=== PATIENT | male | born 1955 | race Caucasian/White ===

== ENCOUNTER 2022-07-13 15:18 | Emergency (ER) | payer SELFPAY ==
[2022-07-13] VITALS (17 sets, daily range): BP systolic 131–173; BP diastolic 73–93; PULSE 70–89; RESP 18–24; TEMP 36.3–36.7; O2SAT 90–98; BMI 20.9
--- NOTE | 2022-07-13 16:12 | CT_ITS ---
We are attempting to reach an attending provider to discuss findings. An addendum with communication details will be sent when the communication is complete. INDICATION: headache, confusion EXAMINATION: CT BRAIN - CT Head or Brain W/O Contrast Injection TECHNIQUE: Multiple axial images were obtained of the head without intravenous contrast. A radiation dose optimization technique was used for this scan. IV Contrast dosage and agent: None. COMPARISON: FINDINGS: BRAIN PARENCHYMA: There is acute intraventricular hemorrhage noted with mild asymmetric dilatation of the left lateral ventricle... No evidence of acute infarct. There is effacement of the cortical sulci in the temporal and frontal lobes suggesting cerebral edema.. . Posterior fossa structures are unremarkable. CSF SPACES: Appropriate for age. No hydrocephalus. Basal cisterns are patent. CALVARIUM, SKULL BASE, PARANASAL SINUSES AND MASTOID AIR CELLS: Clear. No discrete lytic or blastic abnormalities. ORBITS: Both globes, extraocular muscles, optic nerves and retrobulbar fat appear unremarkable. CT/Brain/Head without Contrast IMPRESSION: Nonspecific interventricular hemorrhage of uncertain etiology. CTA or MRI/MRA is recommended for further evaluation Electronically Signed: Dc Ramírez MD at 17:00 EST ,
--- NOTE | 2022-07-13 16:13 | EDS_ITS ---
HPI History of Present Illness Chief Complaint: Cold Sx Detail of Chief Complaint: Fatigue, headache Informant: patient and family Onset/Context/Timing Onset: Today Narrative Narrative: History provided primarily by sister at bedside. Patient works as a [employer] and works long hours. This morning he complained that he just was not feeling well and had a headache. They found him slumped over but sister does not believe he ever passed out or lost consciousness. They took him back to the house and he was complaining of headache and had some confusion. There is no reported fall or head injury. PFSH PFSH Medical History no medical history no medical history Home Medications NK 07/13/22 [History Last Taken Unknown] Allergy/AdvReac Type Severity Reaction Status Date / Time No Known Allergies Allergy Verified 07/13/22 15:31 Social History Smoking Status: Current every day smoker tobacco type: cigarettes ROS ROS ED Constitutional Constitutional ED: Denies chills or fever(s) Eyes Eyes: Denies change in vision or discharge from eye(s) ENT ENT ED: Denies discharge from eye(s), rhinorrhea or sore throat Cardiovascular Cardiovascular: Denies chest pain or palpitations Respiratory/Chest Respiratory/Chest: Denies cough or dyspnea Gastrointestinal Gastrointestinal: Reports nausea and vomiting; Denies abdominal pain or diarrhea Genitourinary Genitourinary ED: Denies dysuria Musculoskeletal Musculoskeletal: Denies back pain or extremity pain Integumentary Denies Abrasions or rash Neurologic Neurologic: Reports headache(s) and weakness Psychiatric Psychiatric: Denies anxiety or depression Allergic/Immunologic Allergic/Immunologic ED: Denies lip swelling or urticaria EXAM Physical Exam Const Vital Signs: 07/13/22 15:27 07/13/22 17:20 Temperature 97.4 F L Temperature Source Temporal Pulse Rate 74 70 Respiratory Rate 18 21 H Blood Pressure 157/93 H 163/93 H Blood Pressure Mean 114 116 Pulse Ox 98 95 Oxygen Delivery Method Room Air Room Air Positive well nourished and well developed General Appearance ED: well developed HEENT Reports normocephalic and head/scalp atraumatic Eyes PERRL and EOMs intact bilaterally Neck supple Neck Narrative: No meningismus Chest Wall inspection of chest normal and palpation of chest normal Resp normal respiratory effort and clear to auscultation bilaterally Cardio regular rate and regular rhythm GI normal to inspection, nondistended, normoactive bowel sounds Palpation: soft Extremity normal to inspection Neuro oriented x3 Neuro Narrative: No focal neurologic deficits. Sensorium / Orientation: alert Psych Psych Narrative: Resting with eyes closed will answer questions appropriately. Will follow commands normally. Skin no rashes or lesions noted MDM MDM MDM Narrative Medical decision making narrative: Given IV fluids along with 50 mg of Toradol and 4 mg of Zofran. Head CT obtained along with lab work and swabs for COVID and influenza. Portable chest x-ray obtained. Lab Data Attestation: I reviewed the patient's lab results. Labs: Laboratory Results - last 24 hr 07/13/22 07/13/22 16:24 16:24 WBC 11.5 H RBC 4.97 Hgb 15.7 Hct 45.7 MCV 92.0 MCH 31.6 MCHC 34.4 RDW Std Deviation 43.2 RDW Coeff of Tre 12.8 Plt Count 270 MPV 10.0 Immature Gran % (Auto) 0.500 Neut % (Auto) 80.6 H Lymph % (Auto) 13.8 L [place] % (Auto) 4.5 Eos % (Auto) 0.2 Baso % (Auto) 0.4 Absolute Neuts (auto) 9.2 H Absolute Lymphs (auto) 1.58 Nucleated RBC % 0 Sodium 137 Potassium 4.0 Chloride 104 Carbon Dioxide 30.0 Anion Gap 3 L BUN 16 Creatinine 0.87 Estim Creat Clear Calc 80.81 Est GFR (MDRD) Af Amer 112 Est GFR (MDRD) Non-Af 93 BUN/Creatinine Ratio 18.4 Glucose 129 H Calcium 9.2 ABG Data ABG results: ABG 07/13/22 16:24 VBG Carboxyhemoglobin 5.4 H Radiography Chest X-Ray - ED: 1 View, Read by ED Physician, Chronic Changes and No Infiltrates Diagnostic Testing: Clinical Impression(s) from Imaging Studies Brain CT 07/13/22 16:12 IMPRESSION: Nonspecific interventricular hemorrhage of uncertain etiology. CTA or MRI/MRA is recommended for further evaluation Electronically Signed: Dc Ramírez MD at 17:00 EST , ADDENDUM: 07/13/22 [id number] IMPRESSION: Nonspecific interventricular hemorrhage of uncertain etiology. CTA or MRI/MRA is recommended for further evaluation N.B. : The above Results were Read Back by Dc Ramírez MD to Renetta Harper MD, and understanding confirmed on 07/13/2022 17:12:47 (ET). Electronically Signed: Dc Ramírez MD at 17:00 EST , Chest X-Ray 07/13/22 16:30 IMPRESSION: Mild nonspecific interstitial thickening in the right lower lobe possibly inflammatory. Small left lower lobe nodule possibly granuloma. This may be further assessed with CAT scan or correlation with prior studies when available. Electronically Signed: Dc Ramírez MD at 16:50 EST , Treatment and Re-Evaluation Narrative: Repeat evaluation patient resting comfortably. Test results discussed with patient and sister at bedside. Lab work reveals a mildly elevated white count 11.5 with 80% neutrophils. Chemistry studies are unremarkable. COVID and influenza swabs are negative. Portable chest x-ray per my interpretation reveals no focal infiltrate. Head CT reveals nonspecific intraventricular hemorrhage of uncertain etiology. Left lateral ventricle dilated slightly more than right. Current blood pressure is 163/93. Patient has been accepted at [facility]. Goal blood pressures less than 140 so a dose of labetalol has been ordered. We are arranging air transport at this time. Discharge Plan Triage Chief Complaint: Cold Sx ED Provider: Renetta Harper Dx/Rx/DC Orders Clinical Impression: Hemorrhagic stroke Prescriptions: No Action NK Primary Care Provider: NOT,DEFINED Referrals: NOT,DEFINED [Primary Care Provider] - Disposition Disposition: Acute Care Hospital Discharge Location: [facility]
[2022-07-13] MEDS: Ondansetron 4 MG/2 ML Vial IV (16:26)
[2022-07-13] MEDS: 0.9% Normal Saline 1,000 ML 1000 ML IV (16:26)
[2022-07-13] MEDS: Ketorolac 15 MG/ML Vial IV (16:26)
--- NOTE | 2022-07-13 16:30 | RAD_ITS ---
INDICATION: sob EXAMINATION/TECHNIQUE: X-RAY - XR Chest 1 View COMPARISON: None. FINDINGS: LINES/DEVICES: None. LUNGS: Mild nonspecific asymmetric interstitial thickening in the right lower lobe. Small well marginated nodule in the left lower lobe possibly granuloma. No pneumothorax. MEDIASTINUM AND CARDIOVASCULAR STRUCTURES: Cardiac silhouette not enlarged. Central airways and mediastinal contour are unremarkable. BONES AND SOFT TISSUES: Dorsal spine and shoulders demonstrate degenerative change RAD/Chest 1 View (Portable) IMPRESSION: Mild nonspecific interstitial thickening in the right lower lobe possibly inflammatory. Small left lower lobe nodule possibly granuloma. This may be further assessed with CAT scan or correlation with prior studies when available. Electronically Signed: Dc Ramírez MD at 16:50 EST ,
[2022-07-13 16:51] LABS: Absolute Lymphocyte Count 1.58 X10^3/uL (0.83-4.51); Absolute Neutrophil Count 9.2 X10^3/uL (2.0-7.7); Basophil# 0.05 X10^3/uL; Basophil% 0.4 % (0-1); Eosinophil# 0.02 X10^3/uL; Eosinophils% 0.2 % (0-5); Hematocrit 45.7 % (40-54); Hemoglobin 15.7 g/dL (13.0-16.5); Lymphocyte # 1.58 X10^3/ul (0.83-4.51); Lymphocyte % 13.8 % (19-41); Mean Corp Hgb Conc 34.4 g/dL (32-36); Mean Corpuscular Hgb 31.6 pg (27.0-32.0); Monocyte# 0.51 X10^3/uL; Monocyte% 4.5 % (0-10); NRBC Flagged by Analyzer 0 % (0-5); Neutrophil # 9.23 X10^3/uL (2.7-7.7); Neutrophil % 80.6 % (47-70); Platelet Count 270 K/mm3 (150-450); RBC Distribution Width CV 12.8 % (11.6-14.6); RBC Distribution Width SD 43.2 fl (35.1-43.9); Red Blood Count 4.97 M/mm3 (4.6-6.2); White Blood Count 11.5 K/mm3 (4.4-11.0)
[2022-07-13 17:06] LABS: Anion Gap 3 (5-15); BUN 16 mg/dL (7-18); BUN/Creat Ratio 18.4 RATIO (10-20); Calcium,Total 9.2 mg/dL (8.5-10.1); Chloride 104 mmol/L (98-107); Creatinine, Serum 0.87 mg/dL (0.70-1.30); EST Glomerular Filtration Rate 93 mL/min (>60); Est Glom Filt Rate - Afr Amer 112 mL/min (>60); Estimated Creatinine Clearance 80.81 ml/min; Glucose 129 mg/dL (74-106); Sodium Level 137 mmol/L (136-145)
[2022-07-13 17:07] LABS: Carboxyhemoglobin Frac (CO) 5.4 % (0.0-1.5)
[2022-07-13] MEDS: Labetalol (Prefilled) 20 MG/4 ML 10 MG IV ×3 (17:41→19:20)
[2022-07-13 18:49] LABS: International Normalized Ratio 1.1
--- NOTE | 2022-07-13 19:11 | ED.RN ---
Report given to Jennifer at [facility]
--- NOTE | 2022-07-13 20:37 | NURSING ---
CALLED PHYSICIANS AT 1909 TO GET AN UPDATED ETA AND WAS TOLD THE NEW ETA WOULD BE 1999. I CALLED AGAIN AT 2034 AND WAS INFORMED IT WOULD BE ANOTHER 15-20 MINUTES BEFORE [facility] ARRIVED.
--- NOTE | 2022-07-13 21:22 | ED.RN ---
Report given to physicians ambulance.
== END 2022-07-13 21:30 | disposition short-term general hospital (02) ==
PROVIDERS: Emergency Provider Emergency Medicine; Visit Provider Emergency Medicine
DX: I63.9 Cerebral infarction, unspecified (principal); F17.210 Nicotine dependence, cigarettes, uncomplicated; R41.0 Disorientation, unspecified; R53.83 Other fatigue; R11.2 Nausea with vomiting, unspecified; R51.9 Headache, unspecified; Z20.822 Contact with and (suspected) exposure to COVID-19
CPT/HCPCS: 70450; 71045; 80048; 82375; 85025; 85610; 85730; 87428; 96365; 96375; 96376; 99285; J7030; J7050; A4216; J2405

== ENCOUNTER 2023-11-13 02:34 | Emergency (ER) | payer MEDICARE, SELFPAY ==
[2023-11-13 02:35] VITALS: BP 214/114; PULSE 85; RESP 22; TEMP 36.7; O2SAT 99; BMI 23.5
--- NOTE | 2023-11-13 02:58 | EDS_ITS ---
HPI History of Present Illness Chief Complaint: GI Bleed Informant: patient and spouse/S.O. Narrative Narrative: Presents with difficulty urinating then noting bowel movement that is bloody. He is straining. He is on aspirin history of CVA in 2021. Suprapubic d iscomfort. No fevers. Toledo catheter when he had a stroke per significant other. PFSH PFS Medical History Stroke Home Medications aspirin 81 mg chewable tablet (Children's Aspirin) 1 tab PO DAILY 11/13/23 [History Last Taken Unknown] cefdinir 300 mg capsule 300 mg PO Q12H #14 caps 11/13/23 [Rx Last Taken Unknown] docusate sodium 100 mg capsule (Colace) 100 mg PO BID #30 caps 11/13/23 [Rx Last Taken Unknown] tamsulosin 0.4 mg capsule (Flomax) 0.4 mg PO DAILY #14 caps 11/13/23 [Rx Last Taken Unknown] Allergy/AdvReac Type Severity Reaction Status Date / Time No Known Allergies Allergy Verified 07/13/22 15:31 Surgical History (Updated 11/13/23 @ 02:40 by Susan Rocha) S/P hernia surgery Social History Smoking Status: Current every day smoker tobacco type: e-cigarettes ROS ROS ED Constitutional Constitutional ED: Denies chills, fever(s) or sweats Eyes Eyes: Denies change in vision ENT ENT ED: Denies dysphagia or sore throat Cardiovascular Cardiovascular: Denies chest pain, leg edema, palpitations or racing heartbeat Respiratory/Chest Respiratory/Chest: Denies cough, dyspnea or dyspnea on exertion Gastrointestinal Gastrointestinal: Reports abdominal pain and other Details: Rectal bleeding ; Denies diarrhea, nausea or vomiting Genitourinary Genitourinary ED: Reports other Details: Urine retention ; Denies dysuria, hematuria or urinary frequency Musculoskeletal Musculoskeletal: Denies back pain, extremity pain or neck pain Integumentary Denies rash or wounds Neurologic Neurologic: Denies headache(s), paresthesias or weakness EXAM Physical Exam Const Vital Signs: 11/13/23 02:35 11/13/23 04:08 Temperature 98.0 F 97.4 F L Temperature Source Oral Pulse Rate 85 78 Respiratory Rate 22 H 18 Blood Pressure 214/114 H 173/80 H Blood Pressure Mean 147 111 Pulse Ox 99 96 Oxygen Delivery Method Room Air Positive well nourished and well developed Constitutional Narrative: Walking around for comfort. General Appearance ED: well developed and NAD HEENT Reports moist mucous membranes normocephalic and atraumatic Eyes PERRL, EOMs intact bilaterally and conjunctivae normal General Eye ED: Yes normal appearance of both eyes Neck no lymphadenopathy and supple General: Negative for tenderness Chest Wall Chest: Negative for tenderness Resp normal respiratory effort and normal air movement Effort and Inspection: symmetric chest movement; Negative for respiratory distress Cardio regular rate, regular rhythm and no murmurs Peripheral Pulses: pulses 2+ throughout GI GI Narrative: Suprapubic distention. Rectal exam with large anterior hemorrhoid dried blood. Palpation: Negative for guarding or rebound tenderness present Back/Spine no CVA tenderness and no thoracic nor lumbar tenderness Extremity normal to inspection General Extremety ED: Negative for edema or tenderness General Extremity: Negative for edema Neuro oriented x3 and no sensory deficits noted Sensorium / Orientation: awake and alert Skin no rashes or lesions noted and no wounds MDM MDM MDM Narrative Medical decision making narrative: Interventions / MDM: Differential diagnosis: Urine retention, UTI, bleeding external hemorrhoid Diagnosis considered but do not suspect: No clinical diverticulitis My EKG interpretation: N/A Imaging independently reviewed and interpreted by myself: N/A External documents reviewed: N/A Test considered but not ordered:N/A ED course: Presenting urine retention suprapubic distention. Rectal bleeding with noted hemorrhoid. Basic labs, Toledo catheter and urine ordered. 0300: Toledo with 1 L of urine output. abdominal pain improved, distention improved. 0400: Labs hemoglobin normal at 15 white count 8.5. Creatinine 1.05. Urine leukocytes and white cells from cath urine. Culture sent. With urine retention will start antibiotics in the ED. Multiple reevaluation continues to have soft abdomen. No clinical diverticulitis. Blood pressure improved with his symptoms. Discussed maintain Toledo catheter for 3 days for urine retention he started on Flomax, urology follow-up in 3 days discussed if he cannot get in to return to ED for attempted Toledo catheter removal trial. He has external hemorrhoid that was bleeding, placed on stool softeners and GI follow-up. All questions were answered. Re-evaluation: stable Disposition discussed with patient/family/significant other: Patient and significant other. Case discussed with consulting clinician: N/A This note was generated with [employer] dictation software. It may contain incorrect words, spelling, and punctuation that were not noted in checking the note before signing. Lab Data Attestation: I reviewed the patient's lab results. Labs: Laboratory Results - last 24 hr 11/13/23 11/13/23 02:52 03:07 WBC 8.5 RBC 5.02 Hgb 15.5 Hct 46.1 MCV 91.8 MCH 30.9 MCHC 33.6 RDW Std Deviation 43.0 RDW Coeff of Tre 12.8 Plt Count 252 MPV 9.4 Immature Gran % (Auto) 0.500 Neut % (Auto) 66.3 Lymph % (Auto) 22.2 [place] % (Auto) 8.5 Eos % (Auto) 1.6 Baso % (Auto) 0.9 Absolute Neuts (auto) 5.6 Absolute Lymphs (auto) 1.89 Nucleated RBC % 0 Sodium 138 Potassium 3.9 Chloride 106 Carbon Dioxide 25.0 Anion Gap 7 BUN 22 H Creatinine 1.05 Estim Creat Clear Calc 75.04 Est GFR (MDRD) Af Amer 90 Est GFR (MDRD) Non-Af 74 BUN/Creatinine Ratio 21.0 H Glucose 131 H Calcium 8.9 Urine Color Yellow Urine Clarity Clear Urine pH 6.5 Ur Specific [place] 1.010 Urine Protein Negative Urine Glucose (UA) Normal Urine Ketones Negative Urine Occult Blood 50 H Urine Nitrite Negative Urine Bilirubin Negative Urine Urobilinogen Normal Ur Leukocyte Esterase 100 H Urine RBC 0-5 SEEN Urine WBC 10-25 SEEN Ur Squamous Epith Cells 0 SEEN Urine Bacteria 0 SEEN Urine Mucus 0 SEEN Discharge Plan Triage Chief Complaint: GI Bleed ED Provider: Jhoan Laurent Dx/Rx/DC Orders Clinical Impression: External bleeding hemorrhoids, Acute UTI, Acute retention of urine Instructions: Urinary Tract Infections in Men, ED Toledo Catheter, Care, ED Hemorrhoids, ED Urinary Retention, Male Prescriptions: New tamsulosin [Flomax] 0.4 mg capsule 0.4 mg PO DAILY Qty: 14 0RF cefdinir 300 mg capsule 300 mg PO Q12H Qty: 14 0RF docusate sodium [Colace] 100 mg capsule 100 mg PO BID Qty: 30 0RF No Action aspirin [Children's Aspirin] 81 mg tablet,chewable 1 tab PO DAILY Primary Care Provider: Guanaco Crenshaw Referrals: Guanaco Crenshaw MD [Primary Care Provider] - Max Sotomayor MD [Med Staff - Active Staff] - 3-5 Days Fortino Horn DO [Med Staff - Active Staff] - 1-2 Weeks Activity Restrictions/Additional Instructions: Acute urinary retention. Maintain Toledo catheter for least 3 days. Urine with potential infection. Culture sent. Take antibiotic as prescribed. Use Flomax daily. Follow-up with Dr. Sotomayor in 3 days for outpatient valuation Toledo catheter removal. If unable to get in, return to the ED for removal trial. External hemorrhoid that was bleeding likely from straining. Stool softeners as prescribed. Follow-up with Dr. Horn for outpatient evaluation. Disposition Disposition: Home, Self Care
[2023-11-13 02:59] LABS: Absolute Lymphocyte Count 1.89 X10^3/uL (0.83-4.51); Absolute Neutrophil Count 5.6 X10^3/uL (2.0-7.7); Basophil# 0.08 X10^3/uL; Basophil% 0.9 % (0-1); Eosinophil# 0.14 X10^3/uL; Eosinophils% 1.6 % (0-5); Hematocrit 46.1 % (40-54); Hemoglobin 15.5 g/dL (13.0-16.5); Lymphocyte # 1.89 X10^3/ul (0.83-4.51); Lymphocyte % 22.2 % (19-41); Mean Corp Hgb Conc 33.6 g/dL (32-36); Mean Corpuscular Hgb 30.9 pg (27.0-32.0); Mean Corpuscular Volume 91.8 fL (80-94); Mean Platelet Vol. 9.4 fl (6.2-12.0); Monocyte# 0.72 X10^3/uL; Monocyte% 8.5 % (0-10); NRBC Flagged by Analyzer 0 % (0-5); Neutrophil # 5.63 X10^3/uL (2.7-7.7); Neutrophil % 66.3 % (47-70); Platelet Count 252 K/mm3 (150-450); RBC Distribution Width CV 12.8 % (11.6-14.6); Red Blood Count 5.02 M/mm3 (4.6-6.2); White Blood Count 8.5 K/mm3 (4.4-11.0)
[2023-11-13 03:12] LABS: Anion Gap 7 (5-15); BUN 22 mg/dL (7-18); Calcium,Total 8.9 mg/dL (8.5-10.1); Chloride 106 mmol/L (98-107); Creatinine, Serum 1.05 mg/dL (0.70-1.30); EST Glomerular Filtration Rate 74 mL/min (>60); Est Glom Filt Rate - Afr Amer 90 mL/min (>60); Estimated Creatinine Clearance 75.04 ml/min; Glucose 131 mg/dL (74-106); Potassium 3.9 mmol/L (3.5-5.1); Sodium Level 138 mmol/L (136-145)
[2023-11-13 03:15] LABS: Bacteria 0 SEEN /hpf (None Seen); Mucous, Urine 0 SEEN /hpf (<or=2+); Squamous Epithelial Cells - UA 0 SEEN /hpf (0-5)
[2023-11-13 03:21] LABS: Color, Urine Yellow (Yellow); Glucose, Dipstick Normal (Normal); Ketone-Dipstick Negative (Negative); Leukocyte Esterase-Dipstick 100 /ul (Negative); Nitrite-Dipstick Negative (Negative); Occult Blood-Urine 50 /ul (Negative); Protein-Dipstick Negative (Negative); Urine Bilirubin Dipstick Negative (Negative); Urine Clarity Clear (Clear); Urine Urobilinogen Normal (Normal); Urine pH 6.5 (5.0 - 8.0)
[2023-11-13 03:38] LABS: Red Blood Cells-Urine 0-5 SEEN /hpf (0-5); White Blood Cells 10-25 SEEN /hpf (0-5)
[2023-11-13] MEDS: Cefdinir 300 MG Capsule PO (04:07)
[2023-11-13] MEDS: Tamsulosin HCl 0.4 MG Capsule PO (04:07)
[2023-11-13 04:08] VITALS: BP 173/80; PULSE 78; RESP 18; TEMP 36.3; O2SAT 96
== END 2023-11-13 04:26 | disposition home or self-care (01) ==
PROVIDERS: Emergency Provider Emergency Medicine; PCP Family Medicine; Visit Provider Emergency Medicine
DX: N39.0 Urinary tract infection, site not specified (principal); F17.290 Nicotine dependence, other tobacco product, uncomplicated; R33.9 Retention of urine, unspecified; K64.4 Residual hemorrhoidal skin tags; Z79.82 Long term (current) use of aspirin; Z79.899 Other long term (current) drug therapy; Z86.73 Personal history of transient ischemic attack (TIA), and cerebral infarction without residual deficits
CPT/HCPCS: 51702; 80048; 81001; 85025; 87077; 87086; 87088; 87186; 99285; A4216

== ENCOUNTER 2023-11-14 09:28 | Emergency (ER) | payer MEDICARE, SELFPAY ==
[2023-11-14 09:30] VITALS: BP 141/114; PULSE 76; RESP 18; TEMP 36.6; O2SAT 96
[2023-11-14 09:32] VITALS: BP 141/114; PULSE 77; RESP 18; TEMP 36.6; O2SAT 98
--- NOTE | 2023-11-14 09:49 | EX.ED.GUMALE ---
HPI History of Present Illness Chief Complaint: Complaint Informant: patient and spouse/S.O. Narrative Narrative: Patient seen here yesterday and had a Toledo placed because of acute urinary retention and what seems to be infection for which she was started on antibiotics. He states yesterday the urine was flowing through the catheter into the bag and he was emptying it uneventfully. This morning it is leaking around the catheter and nothing is going into the bag. He does not have any abdominal or back pain or fevers or chills or hematuria before or after the catheter that he knows of, grossly. PFSH PFSH Medical History Stroke Home Medications aspirin 81 mg chewable tablet (Children's Aspirin) 1 tab PO DAILY 11/13/23 [History Last Taken Unknown] cefdinir 300 mg capsule 300 mg PO Q12H #14 caps 11/13/23 [Rx Last Taken Unknown] docusate sodium 100 mg capsule (Colace) 100 mg PO BID #30 caps 11/13/23 [Rx Last Taken Unknown] tamsulosin 0.4 mg capsule (Flomax) 0.4 mg PO DAILY #14 caps 11/13/23 [Rx Last Taken Unknown] Allergy/AdvReac Type Severity Reaction Status Date / Time No Known Allergies Allergy Verified 11/14/23 09:32 Surgical History (Updated 11/13/23 @ 02:40 by Susan Rocha) S/P hernia surgery Social History Smoking Status: Current every day smoker tobacco type: e-cigarettes ROS ROS ED Constitutional Constitutional ED: Denies chills or fever(s) Gastrointestinal Gastrointestinal: Denies abdominal pain, nausea or vomiting Genitourinary Genitourinary ED: Reports as per HPI; Denies hematuria Musculoskeletal Musculoskeletal: Denies back pain or neck pain Neurologic Neurologic: Denies paresthesias or weakness EXAM Physical Exam Const Vital Signs: 11/14/23 09:30 11/14/23 09:32 Temperature 97.9 F 97.9 F Temperature Source Temporal Oral Pulse Rate 76 77 Respiratory Rate 18 18 Blood Pressure 141/114 H 141/114 H Blood Pressure Mean 123 123 Pulse Ox 96 98 Oxygen Delivery Method Room Air Room Air Positive well nourished and well developed General Appearance ED: well developed and NAD GI non-tender and non-distended Auscultation: normoactive bowel sounds Palpation: soft Narrative: Toledo in place and penis, otherwise unremarkable. Trace amounts of yellow nonbloody urine in catheter. Back/Spine no CVA tenderness Neuro oriented x3, CN's II-XII intact bilaterally, moves all extremities, no focal motor deficits and no sensory deficits noted MDM MDM MDM Narrative Medical decision making narrative: After irrigating the catheter, a piece of tissue was removed and the catheter subsequently was flowing well without leaking. The patient states he wants the catheter out because it is uncomfortable and makes it hard to work. I discussed the pros and cons of that extensively with the patient. His seems to understand the pros and cons well but the patient does not. He understands that basically the risk is recurrent urinary retention and requiring another catheter in an urgent/emergent situation. I am having nursing give the a 10 cc syringe and instructions for removal if indeed the patient wants to do this. I have recommended that he try to leave it in until he follows up with urology. It is Wednesday so he has not yet been able to make an appointment for that. The also mentioned that the patient really does not have a desire to follow-up. I told him multiple reasons that he needs to follow-up even if the catheter comes out and he was able to urinate, not exclusive of possibility of prostate cancer causing his urinary retention, which I am not able to rule in or rule out in the emergency department. Discharge Plan Triage Chief Complaint: Complaint ED Provider: Catarino Collisn Dx/Rx/DC Orders Clinical Impression: Malfunction of Toledo catheter, Acute retention of urine Instructions: ED Toledo Catheter, Care Prescriptions: No Action aspirin [Children's Aspirin] 81 mg tablet,chewable 1 tab PO DAILY tamsulosin [Flomax] 0.4 mg capsule 0.4 mg PO DAILY Qty: 14 0RF cefdinir 300 mg capsule 300 mg PO Q12H Qty: 14 0RF docusate sodium [Colace] 100 mg capsule 100 mg PO BID Qty: 30 0RF Primary Care Provider: Guanaco Crenshaw Referrals: Guanaco Crenshaw MD [Primary Care Provider] - Max Sotomayor MD [Med Staff - Active Staff] - 5-7 Days Disposition Disposition: Home, Self Care
[2023-11-14 11:20] VITALS: BP 158/99; PULSE 75; RESP 16; TEMP 36.9; O2SAT 99
== END 2023-11-14 11:21 | disposition home or self-care (01) ==
PROVIDERS: Emergency Provider Emergency Medicine; PCP Family Medicine; Visit Provider Emergency Medicine
DX: T83.198A Other mechanical complication of other urinary devices and implants, initial encounter (principal); Y73.8 Miscellaneous gastroenterology and urology devices associated with adverse incidents, not elsewhere classified; R33.9 Retention of urine, unspecified; F17.290 Nicotine dependence, other tobacco product, uncomplicated; Z79.82 Long term (current) use of aspirin; Z79.899 Other long term (current) drug therapy; Z86.73 Personal history of transient ischemic attack (TIA), and cerebral infarction without residual deficits
CPT/HCPCS: 99282

== ENCOUNTER → 2024-11-06 | Outpatient (CLI) | payer MEDICARE, SELFPAY ==
--- NOTE | 2024-11-06 10:30 | LES_PTH ---
PATIENT: LOVE REY LOC: [facility] U#:[id number] AGE/SX: 69/M ROOM: RE11/06/[address]: Guanaco Crenshaw MD : 1955 BED: DIS: 11/06/2024 SPEC #: [id number] RECD: 11/07/24 09:02 STATUS: JUAN NIKOLAS #: [id number] BEBE: 11/06/24 10:[address]: Guanaco Crenshaw DEPT: SURGICAL PATHOLOGY RECD BY: Dean Pearl Tissues: A - Skin of abdomen, NOS Procedures: Immunohistochemical Stains Surgery Specimen Level IV HEADER OPERATION: Punch biopsy PRE-OP DIAGNOSIS: Suspicious skin lesion TISSUE SUBMITTED: A- Upper abdomen lesion MICROSCOPIC DIAGNOSIS A. Skin, upper abdomen, punch biopsy: * Compound melanocytic nevus with moderate cytologic atypia and architectural disorder - see note and Comment. * IHC for Melan-A highlights the melanocytes in the dermis and at the dermoepidermal junction; no intraepidermal involvement is observed. Note: Melanocytes at the dermo-epidermal junction extend to involve bilateral edges of the specimen. If this biopsy represents only a portion of the lesion, complete excision of the residual lesion for further evaluation is recommended, if clinically indicated. COMMENT The slides/images were reviewed in intradepartmental consultation by Dr Yaneli Fitzpatrick (dermatopathology division, [facility]). MICROSCOPIC DESCRIPTION Slides are reviewed. These tests were developed and their performance characteristics determined by [facility]. They may not have been cleared or approved by the U.S. Food and Drug Administration. The FDA has determined that such clearance or approval is not necessary. The above immunohistochemical/dualISH markers are ordered and reviewed by the Pathologist. GROSS DESCRIPTION A. Received in formalin in a container labeled with the patient's name, date of , and with the accompanying paperwork indicating upper abdomen, punch biopsy is an unoriented 0.6 x 0.4 cm punch biopsy with a depth of 0.3 cm. The white-sin epidermis is notable for a hyperpigmented brown macule with ill-defined borders measuring 0.4 x 0.3 cm, abutting the peripheral margin. The deep margin is inked green, and it is bisected to reveal that the macule appears confined to the epidermis. Submitted entirely in A1. B 11/06/2024 CPT:31313,74233
== END | disposition home or self-care (01) ==
LOC: LABSPEC 17:50
PROVIDERS: PCP Family Medicine; Referring Provider Family Medicine; Visit Provider Family Medicine
DX: L98.9 Disorder of the skin and subcutaneous tissue, unspecified (principal)
CPT/HCPCS: 88305

== ENCOUNTER → 2025-03-16 | Outpatient (CLI) | payer MEDICARE, SELFPAY ==
[2025-03-16 17:43] LABS: Hematocrit 42.9 % (40-54); Hemoglobin 14.9 g/dL (13.0-16.5); Immature Granulocytes Count 0.040 X10^3/uL (0.0-0.0); Mean Corp Hgb Conc 34.7 g/dL (32-36); Mean Corpuscular Volume 89.7 fL (80-94); Mean Platelet Vol. 9.6 fl (6.2-12.0); NRBC Flagged by Analyzer 0 % (0-5); Platelet Count 273 K/mm3 (150-450); RBC Distribution Width CV 12.8 % (11.6-14.6); RBC Distribution Width SD 42.5 fl (35.1-43.9); Red Blood Count 4.78 M/mm3 (4.6-6.2); White Blood Count 10.8 K/mm3 (4.4-11.0)
[2025-03-16 19:17] LABS: AST(SGOT) 20 U/L (<=37); Alanine Aminotransfer ALT/SGPT 17 U/L (<=46); Albumin, Serum 4.2 g/dL (3.4-4.8); Alkaline Phosphatase 67 U/L (40-129); Anion Gap 13 (5-15); BUN 18 mg/dL (4-19); BUN/Creat Ratio 19.4 RATIO (10-20); Calcium,Total 9.4 mg/dL (7.6-11.0); Carbon Dioxide 22.8 mmol/L (21.0-32.0); Chloride 102 mmol/L (98-108); Cholesterol 195 mg/dL (<=200); Globulin 2.8 g/dL (2.2-4.2); Glucose 108 mg/dL (70-99); Low Density Lipoprotein Calc. 123 mg/dL; PSA,Total - Annual Screen 8.09 ng/mL (0.02-4.00); Potassium 4.3 mmol/L (3.3-5.1); Triglycerides 97 mg/dL; Very Low Density Lipoprotein 19 mg/dL (5-40); cholesterol:hdl ratio screen 3.73
== END | disposition home or self-care (01) ==
PROVIDERS: PCP Family Medicine; Referring Provider Family Medicine; Visit Provider Family Medicine
DX: I10 Essential (primary) hypertension (principal); Z12.5 Encounter for screening for malignant neoplasm of prostate
CPT/HCPCS: 36415; 80053; 80061; 84153; 85025; G0103

== ENCOUNTER → 2025-03-19 | Outpatient (CLI) | payer MEDICARE, SELFPAY ==
--- OUTSIDE RECORDS SUMMARY | 2025-03-19 09:31 | XMS RPT_ITS | CCD ---
Author Organization [facility] Care Team Providers Care Supervisor [employer] Name Role Phone Unavailable Primary Care Provider Unavailabl e CONSULT, SURGERY - NEURO Consulting Unavail able SHELIA PACKER Attending Unavailable GENIA ROSALES Referring Unavailable IDALMIS MACHADO Attending Unavailable CONSULT, NEUROLOGY-STROKE ALERT Consulting Unavailable JENNIFER LOPEZ Referring Unavailable SAMIR MARQUEZ Admitting Unavailable SAMIR MARQUEZ Referring Unavailable IDALMIS MACHADO Admitting Unavailable LOVE CACERES Attending Unavailable CONSULT, UROLOGY Consulting Unavailable Guanaco Crenshaw MD Primary Care Provider Guanaco Crenshaw MD Referring Provider [phone] Cristopher Cristina Attending Provider Guanaco Crenshaw MD Attending Provider [phone] Guanaco Crenshaw MD Primary Care Provider Guanaco Crenshaw MD Attending Provider [phone] Guanaco Crenshaw MD Referring Provider [phone] Cristopher Cristina Attending Provider Guanaco Crenshaw Referring Unavailable Cristopher Cristina Attending Unavailable Guanaco Crenshaw Primary Care Unavailable Guanaco Crenshaw Referring Unavailable Guanaco Crenshaw Primary Care Unavailable Guanaco Crenshaw Attending Unavailable Guanaco Crenshaw Referring Unavailable Den, Guanaco Primary Care Unavailable Guanaco Crenshaw Attending Unavailable Guanaco Crenshaw Primary Care Unavailable Cristopher Cristina Attending Unavailable Guanaco Crenshaw Referring Unavailable Medications Current Medications Medication Drug Class(es) Dates Sig (Normalized) Sig (Original) amLODIPine 10 mg oral tablet (10 sources) Dihydropyridine Calcium Channel Joseph Start: 09-05-2024 take 1 tablet by mouth once daily Amlodipine 10 mg tablet Active 10 mg PO daily September 05, 2024 1:00am Start: 07-29-2022 take 1 tablet by eric th once daily amLODIPine 10 MG tablet Take 1 tablet by mouth daily. 30 tablet 2 07/29/2022 Start: 07-26-2022 End: 07-31-2022 amLODIPine (NORVASC) tablet 10 mg Start: 07-19-2022 End: 07-25-2022 amLODIPine (NORVASC) tablet 10 mg amoxicillin 875 mg / clavulanate 125 mg oral tablet (1 source) Penicillin-class Antibacterial Start: 03-16-2025 Amoxicillin-Pot Clavulanate 875-125 mg tablet Active 1 {tbl} PO TWICE A DAY 14 0 March 16, 2025 12:00am aspirin 81 mg chewable tablet (14 sources) Platelet Aggregation Inhibitor, Nonsteroidal Anti-inflammatory Drug Start: 11-13-2023 take 1 tablet by mouth once daily Aspirin (Children's Aspirin) 81 mg tablet,chewable Active 1 {tbl} PO DAILY November 13, 2023 12:00am Start: 07-19-2022 End: 10-23-2022 aspirin 81 MG Chew Tab chewa ble tablet Chew 1 tablet daily. 30 tablet 2 07/25/2022 10/23/2022 atorvastatin 20 mg oral tablet (12 sources) HMG-CoA Reductase Inhibitor Start: 09-05-2024 take 1 tablet by mouth once daily in the evening Atorvastatin 20 mg tablet Active 20 mg PO EVERY EVENING September 05, 2024 1:00am Start: 07-24-2022 End: 10-22-2022 take 1 tablet by mouth at bedtime Atorvastatin 80 MG tablet Take 1 tablet by mouth at bedtime. 30 tablet 2 07/24/2022 10/22/2022 Active Start: 07-14-2022 End: 07-31-2022 Atorvastatin (LIPITOR) table t 80 mg carvedilol 12.5 mg oral tablet (12 sources) alpha-Adrenergic Joseph, beta-Adrenergic Joseph Start: 07-22-2022 End: 07-31-2022 take 1 tablet by mouth twice daily carveDILOL 12.5 MG tablet Take 1 tablet by mouth 2 times daily. 30 tablet 2 07/28/2022 Start: 07-21-2022 End: 07-22-2022 carveDILOL (COREG) tablet 6. 25 mg cefdinir 300 mg oral capsule (4 sources) Cephalosporin Antibacterial Start: 11-13-2023 take 1 capsule by mouth every twelve hours Cefdinir 300 mg capsule Active 300 mg PO Q12H 14 November 13, 2023 12:00am docusate sodium 100 mg oral capsule (4 sources) Start: 11-13-2023 take 1 capsule by mouth twice daily Docusate Sodium (Colace) 100 mg capsule Active 100 mg PO TWICE A DAY 30 November 13, 2023 12:00am hydroCHLOROthiazide 25 mg / spironolactone 25 mg oral tablet (2 sources) Thiazide Diuretic, Aldosterone Antagonist Start: 09-05-2024 take 1 tablet by mouth once daily Spironolacton-H ydrochlorothiaz 25-25 mg tablet Active 1 {tbl} PO daily September 05, 2024 1:00am lisinopril 40 mg oral tablet (20 sources) Angiotensin Converting Enzyme Inhibitor Start: 07-25-2022 End: 10-23-2022 take 1 tablet by mouth once daily Lisinopril 40 MG tablet Take 1 tablet by mouth daily. 30 tablet 2 07/25/2022 10/23/2022 Active Start: 07-20-2022 End: 07-31-2022 Lisinopril (PRINIVIL) tablet 40 mg Start: 07-19-2022 End: 07-20-2022 Lisinopril (PRINIVIL) tablet 20 mg Start: 07-17-2022 End: 07-17-2022 Lisinopril (PRINIVIL) tablet 5 mg Start: 07-17-2022 End: 07-18-2022 Lisinopril (PRINIVIL) tablet 10 mg Start: 07-15-2022 End: 07-16-2022 Lisinopril (PRINIVIL) tablet 5 mg melatonin 3 mg oral tablet (10 sources) Start: 07-28-2022 take 2 tablets by mouth once daily in the evening Melatonin 3 MG tablet Take 2 tablets by mouth every evening at 6 PM. 30 tablet 2 07/28/2022 Start: 07-27-2022 End: 07-31-2022 Melatonin tablet 6 mg Start: 07-26-2022 End: 07-27-2022 take 1 tablet by mouth every twenty-four hours Melatonin tablet 3 mg Start: 07-25-2022 End: 07-25-2022 Melatonin tablet 3 mg Start: 07-25-2022 End: 07-25-2022 Melatonin tablet 3 mg 24 hr nicotine 0.583 mg/hr transdermal system (8 sources) Cholinergic Nicotinic Agonist Start: 07-28-2022 apply 1 dose transdermal route every twenty-four hours nicotine 14 MG/24HR Patch [address] 1 patch on skin every 24 hours. 14 patch 0 07/28/2022 Start: 07-25-2022 End: 07-31-2022 nicotine (NICODERM CQ) 14 MG /24HR patch 1 patch Start: 07-14-2022 End: 07-25-2022 nicotine (NICODERM CQ) 14 MG /24HR patch 1 patch QUEtiapine 25 mg oral tablet (20 sources) Atypical Antipsychotic Start: 08-01-2022 take 0.5 tablet by mouth once daily QUEtiapine 25 MG tablet Take 0.5 tablets by mouth daily. 0 08/01/2022 Start: 07-29-2022 End: 07-31-2022 QUEtiapine (SEROquel) tablet 12.5 mg Start: 07-22-2022 End: 07-22-2022 QUEtiapine (SEROquel) tablet 12.5 mg Start: 07-16-2022 End: 07-31-2022 take 1 tablet by mouth at bedtime QUEtiapine 25 MG tablet Take 1 tablet by mouth at bedtime. 0 07/31/2022 Start: 07-15-2022 End: 07-16-2022 QUEtiapine (SEROquel) tablet 12.5 mg tamsulosin hydrochloride 0.4 mg oral capsule (14 sources) alpha-Adrenergic Joseph Start: 11-13-2023 take 1 capsule by mouth once daily Tamsulosin (Flomax) 0.4 mg capsule Active 0.4 mg PO DAILY 14 November 13, 2023 12:00am Start: 07-14-2022 End: 10-23-2022 take 1 capsule by mouth once daily Tamsulosin HCl 0.4 MG capsule Take 1 capsule by mouth daily. 30 capsule 2 07/25/2022 10/23/2022 Completed/Discontinued Medications Medication Drug Class(es) Dates Sig (Normalized) Sig (Original) Acetaminophen (4 sources) Start: 07-25-2022 End: 07-31-2022 take 1 tablet by mouth every four hours as needed Acetaminophen (TYLENOL) tablet 325 mg Start: 07-14-2022 End: 07-25-2022 take 1 tablet by mouth every four hours as needed Acetaminophen (TYLENOL) tablet 650 mg albuterol 0.83 mg/ml inhalation solution (2 sources) beta2-Adrenergic Agonist Start: 07-16-2022 End: 07-25-2022 take 2.5 mg by inhalation every six hours as needed Albuterol (PROVENTIL) (2.5 MG/3ML) 0.083% inhalation solution 2.5 mg albuterol 0.833 mg/ml / ipratropium bromide 0.167 mg/ml inhalation solution (4 sources) Anticholinergic, beta2-Adrenergic Agonist Start: 07-14-2022 End: 07-25-2022 take 3 mL by inhalation every six hours Ipratropium-albute rol (DUONEB) 0.5-2.5 (3) MG/3ML nebulizer solution 3 mL ceFAZolin 2000 mg injection (2 sources) Cephalosporin Antibacterial Start: 07-14-2022 End: 07-14-2022 ceFAZolin (ANCEF) 2 g in dextrose 100 mL premix IVPB cephalexin 500 mg oral capsule (7 sources) Cephalosporin Antibacterial Start: 07-19-2022 End: 07-28-2022 take 1 capsule by mouth every twelve hours cephALEXin 500 MG capsule Take 1 capsule by mouth every 12 hours for 4 days. 8 capsule 0 07/24/2022 07/28/2022 dexmedeTOMIDine in sodium chloride 0.9% (PRECEDEX) 400 mcg/100 mL (2 sources) Start: 07-15-2022 End: 07-17-2022 dexmedeTOMIDine in sodium chloride 0.9% (PRECEDEX) 400 mcg/100 mL 2 ml diazePAM 5 mg/ml prefilled syringe (2 sources) Benzodiazepine Start: 07-19-2022 End: 07-19-2022 Diazepam (VALIUM) injection 5 mg 0.4 ml enoxaparin sodium 100 mg/ml prefilled syringe (2 sources) Low Molecular Weight Heparin Start: 07-17-2022 End: 07-25-2022 Enoxaparin Sodium (LOVENOX) injection 40 mg Enoxaparin Sodium (LOVENOX) injection 40 mg (2 sources) Start: 07-28-2022 End: 07-31-2022 Enoxaparin Sodium (LOVENOX) injection 40 mg 2 ml fentaNYL 0.05 mg/ml injection (2 sources) Opioid Agonist Start: 07-18-2022 End: 07-18-2022 fentaNYL (SUBLIMAZE) injection 50 mcg GI Cocktail (2 sources) Start: 07-30-2022 End: 07-30-2022 GI Cocktail 1 ml haloperidol 5 mg/ml injection (6 sources) Typical Antipsychotic Start: 07-23-2022 End: 07-25-2022 take 1 mg intravenously every six hours as needed Haloperidol lactate (HALDOL) injection 1 mg Start: 07-23-2022 End: 07-23-2022 Haloperidol lactate (HALDOL) injection 0.5 mg Start: 07-23-2022 End: 07-23-2022 Haloperidol lactate (HALDOL) injection hydrALAZINE (APRESOLINE) injection 10 mg (4 sources) Start: 07-25-2022 End: 07-31-2022 take 10 mg intravenously every hour as needed hydrALAZINE (APRESOLINE) injection 10 mg Start: 07-14-2022 End: 07-25-2022 take 10 mg intravenously every hour as needed hydrALAZINE (APRESOLINE) injection 10 mg 1 ml HYDROmorphone hydrochloride 1 mg/ml cartridge (2 sources) Opioid Agonist Start: 07-15-2022 End: 07-15-2022 HYDROmorphone (DILAUDID) injection 0.5 mg hydrOXYzine hydrochloride 10 mg oral tablet (2 sources) Antihistamine Start: 07-26-2022 End: 07-31-2022 hydrOXYzine hcl (ATARAX) tablet 10 mg Labetalol (NORMODYNE) injection 10 mg (2 sources) Start: 07-25-2022 End: 07-31-2022 take 10 mg intravenously every hour as needed Labetalol (NORMODYNE) injection 10 mg lidocaine 0.04 mg/mg medicated patch (6 sources) Antiarrhythmic, Amide Local Anesthetic Start: 07-26-2022 End: 07-31-2022 lidocaine 4 % patch 2 patch Start: 07-22-2022 End: 07-22-2022 Lidocaine HCl Urethral/Mucos al 2 % jelly prefilled syringe (Urojet) PRSY 10 mL Start: 07-22-2022 End: 07-22-2022 Lidocaine HCl Urethral/Mucos al 2 % jelly prefilled syringe (Urojet) PRSY magnesium oxide 400 mg oral tablet (2 sources) Start: 07-23-2022 End: 07-23-2022 magnesium oxide (MAG-OX) tab let 800 mg 100 ml magnesium sulfate 10 mg/ml injection (4 sources) Start: 07-19-2022 End: 07-19-2022 magnesium sulfate 1 g in dextrose 5% 100 mL premix IVPB Start: 07-14-2022 End: 07-19-2022 Magnesium Sulfate 4 g in bhumi rile water 50 ml premix IVPB 2 ml metoclopramide 5 mg/ml prefilled syringe (2 sources) Dopamine-2 Receptor Antagonist Start: 07-19-2022 End: 07-19-2022 Metoclopramide (REGLAN) injection 10 mg 200 ml niCARdipine hydrochloride 0.2 mg/ml injection (6 sources) Dihydropyridine Calcium Channel Joseph Start: 07-14-2022 End: 07-18-2022 niCARdipine in sodium chloride (CARDENE) 40 mg-0.83/200 ml premix IV infusion OLANZapine 10 mg injection (6 sources) Atypical Antipsychotic Start: 07-26-2022 End: 07-28-2022 OLANZapine (ZYPREXA) injection 5 mg 2 ml ondansetron 2 mg/ml injection (2 sources) Serotonin-3 Receptor Antagonist Start: 07-14-2022 End: 07-25-2022 take 4 mg intravenously every four hours as needed Ondansetron 4mg/2ml (ZOFRAN) injection 4 mg Ondansetron 4mg/2ml (ZOFRAN) injection 4 mg (2 sources) Start: 07-25-2022 End: 07-31-2022 take 4 mg intravenously every six hours as needed Ondansetron 4mg/2ml (ZOFRAN) injection 4 mg oseltamivir 75 mg oral capsule (2 sources) Neuraminidase Inhibitor Start: 09-05-2024 End: 09-10-2024 take 1 capsule by mouth twice daily Oseltamivir 75 mg capsule Discontinued 75 mg PO TWICE A DAY 10 5 0 September 05, 2024 1:00am September 09, 2024 1:00am September 10, 2024 1:12am Polyethylene glycol (MIRALAX) packet 17 g (2 sources) Start: 07-25-2022 End: 07-31-2022 Polyethylene glycol (MIRALAX) packet 17 g polyethylene glycol 3350 [id number] mg powder for oral solution (2 sources) Osmotic Laxative Start: 07-14-2022 End: 07-25-2022 Polyethylene glycol (MIRALAX) packet 17 g microencapsulated potassium chloride 20 meq extended release oral tablet (2 sources) Start: 07-23-2022 End: 07-23-2022 Potassium chloride (K-DUR) tablet ER 40 mEq 1000 ml potassium chloride 0.02 meq/ml / sodium chloride 9 mg/ml injection (2 sources) Start: 07-14-2022 End: 07-16-2022 sodium chloride 0.9% 1,000 ml with potassium chloride 20 mEq premix IV solution Senna Leaves (2 sources) Start: 07-26-2022 End: 07-31-2022 senna (SENOKOT) tablet 8.6 mg sennosides, penitentiary 8.6 mg oral tablet (2 sources) Start: 07-14-2022 End: 07-25-2022 senna (SENOKOT) tablet 8.6 mg 250 ml sodium chloride 9 mg/ml injection (8 sources) Start: 07-25-2022 End: 07-25-2022 Sodium chloride 0.9% IV solution 1,000 mL Start: 07-21-2022 End: 07-21-2022 Sodium chloride 0.9% IV solu tion 500 mL Start: 07-19-2022 End: 07-19-2022 Sodium chloride 0.9% IV solu tion 500 mL Start: 07-14-2022 End: 07-25-2022 Sodium chloride 0.9% IV solu tion 250 mL Problems Active Problems Problem Classification Problem Date Documented Da te Episodic/Chronic Acute cerebrovascular disease (20 sources) Ventricular hemorrhage; Translations: [Nontraumatic intracerebral hemorrhage, intraventricular] Onset: 07-14-2022 Chronic Complication of device; implant or graft (3 sources) Disorder of urethral catheter; Translations: [Breakdown (mechanical) of indwelling urethral catheter, initial encounter] 11-14-2023 Episodic Deficiency and other anemia (6 sources) Anemia; Translations: [Anemia, unspecified] Onset: 07-23-2022 Episodic Essential hypertension (1 source) Essential (primary) hypertension; Translations: [Essential (primary) hypertension] Onset: 03-16-2025 Chronic Fluid and electrolyte disorders (6 sources) Disorder of electrolytes; Translations: [Other disorders of electrolyte and fluid balance, not elsewhere classified] Onset: 07-20-2022 Episodic Genitourinary symptoms and ill-defined conditions (12 sources) Retention of urine; Translations: [Retention of urine, unspecified] Onset: 07-25-2022 Episodic Headache; including migraine (2 sources) Headache; Translations: [Headache] Onset: 07-14-2022 Episodic Hemorrhoids (4 sources) Bleeding external hemorrhoids; Translations: [Residual hemorrhoidal skin tags] 11-13-2023 Episodic Other screening for suspected conditions (not mental disorders or infectious disease) (2 sources) Encounter for screening for malignant neoplasm of colon; Translations: [Encounter for screening for malignant neoplasm of prostate] Onset: 03-16-2025 Episodic Unclassified (1 source) Cough, unspecified; Translations: [Cough, unspecified] Onset: 09-05-2024 Urinary tract infections (8 sources) Acute urinary tract infection; Translations: [Urinary tract infection, site not specified] Onset: 03-16-2025 11-13-2023 Episodic Urinary tract infections (1 source) Urinary tract infections Past or Other Problems Problem Classification Problem Date Documented Da te Episodic/Chronic Other skin disorders (1 source) Disorder of the skin and subcutaneous tissue, unspecified; Translations: [Disorder of the skin and subcutaneous tissue, unspecified] Onset: 11-15-2024 Episodic Unclassified (2 sources) Onset: 07-31-2022 07-31-2022 Results Test Name Value Interpretation Reference Range Facility CBC W/Diff, Automatedon 02-24 Absolute Lymph 2.98 X10 3/uL Normal 0.83-4.51 [facility] Comment on above: Performed By: #### L 500.4100, L100.0100, L501.9910, [id number] #### [facility] [address] [place], [address] Absolute Neut 6.6 X10 3/uL Normal 2.0-7.7 [facility] Comment on above: Performed By: #### L 500.4100, L100.0100, L501.9910, [id number] #### [facility] [address] [place], [address] Basophils/100 WBC (Bld) 0.8 % Normal 0-1 [facility] Comment on above: Performed By: #### L 500.4100, L100.0100, L501.9910, [id number] #### [facility] [address] [place], [address] Eosinophils/100 WBC (Bld) 1.6 % Normal 0-5 [facility] Comment on above: Performed By: #### L 500.4100, L100.0100, L501.9910, [id number] #### [facility] [address] [place], [address] Erythrocyte distribution width (RBC) [Ratio] 12.8 % Normal 11.6-14.6 [facility] Comment on above: Performed By: #### L 500.4100, L100.0100, L501.9910, [id number] #### [facility] [address] [place], [address] Hematocrit (Bld) [Volume fraction] 42.9 % Normal 40-54 [facility] Comment on above: Performed By: #### L 500.4100, L100.0100, L501.9910, [id number] #### [facility] [address] [place], [address] Hemoglobin (Bld) [Mass/Vol] 14.9 g/dL Normal 13.0-16.5 [facility] Comment on above: Performed By: #### L 500.4100, L100.0100, L501.9910, [id number] #### [facility] [address] [place], [address] IG% 0.400 Normal 0.0-0.9 [facility] Comment on above: Result Comment: IG% - Immature Granulocytes (promyelocytes, myelocytes and metamyelocytes) > 1% indicates that a LEFT SHIFT is Present. Performed By: #### L 500.4100, L100.0100, L501.9910, [id number] #### [facility] [address] [place], [address] Lymphocytes/100 WBC (Bld) 27.5 % Normal 19-41 [facility] Comment on above: Performed By: #### L 500.4100, L100.0100, L501.9910, [id number] #### [facility] [address] [place], [address] MCH (RBC) [Entitic mass] 31.2 pg Normal 27.0-32.0 [facility] Comment on above: Performed By: #### L 500.4100, L100.0100, L501.9910, [id number] #### [facility] [address] [place], [address] MCHC (RBC) [Mass/Vol] 34.7 g/dL Normal 32-36 [facility] Comment on above: Performed By: #### L 500.4100, L100.0100, L501.9910, [id number] #### [facility] [address] [place], [address] MCV (RBC) [Entitic vol] 89.7 fL Normal 80-94 [facility] Comment on above: Performed By: #### L 500.4100, L100.0100, L501.9910, [id number] #### [facility] [address] [place], [address] Monocytes/100 WBC (Bld) 9.1 % Normal 0-10 [facility] Comment on above: Performed By: #### L 500.4100, L100.0100, L501.9910, [id number] #### [facility] [address] [place], [address] Neutrophils/100 WBC (Bld) 60.6 % Normal 47-70 [facility] Comment on above: Performed By: #### L 500.4100, L100.0100, L501.9910, [id number] #### [facility] [address] [place], [address] Nucleated RBC (Bld) [#/Vol] 0 10*3/uL Normal 0-5 [facility] Comment on above: Performed By: #### L 500.4100, L100.0100, L501.9910, [id number] #### [facility] [address] [place], [address] Platelet mean volume (Bld) [Entitic vol] 9.6 fL Normal 6.2-12.0 [facility] Comment on above: Performed By: #### L 500.4100, L100.0100, L501.9910, [id number] #### [facility] [address] [place], [address] Platelets (Bld) [#/Vol] 273 10*3/uL Normal 150-450 [facility] Comment on above: Performed By: #### L 500.4100, L100.0100, L501.9910, [id number] #### [facility] [address] [place], [address] RBC (Bld) [#/Vol] 4.78 10*6/uL Normal 4.6-6.2 [facility] Comment on above: Performed By: #### L 500.4100, L100.0100, L501.9910, [id number] #### [facility] [address] [place], [address] RDW SD 42.5 fl Normal 35.1-43.9 [facility] Comment on above: Performed By: #### L 500.4100, L100.0100, L501.9910, [id number] #### [facility] [address] [place], [address] WBC (Bld) [#/Vol] 10.8 10*3/uL Normal 4.4-11.0 [facility] Comment on above: Performed By: #### L 500.4100, L100.0100, L501.9910, [id number] #### [facility] [address] [place], [address] Comprehensive Metabolic Prof ilon 03-16-2025 Albumin [Mass/Vol] 4.2 g/dL Normal 3.4-4.8 [facility] Comment on above: Performed By: #### L 500.4100, L100.0100, L501.9910, [id number] #### [facility] [address] [place], [address] Albumin/Globulin [Mass ratio] 1.5 {ratio} Normal 0.9-2.4 [facility] Comment on above: Performed By: #### L 500.4100, L100.0100, L501.9910, [id number] #### [facility] [address] [place], [address] ALK PHOS 67 U/L Normal 40-129 [facility] Comment on above: Performed By: #### L 500.4100, L100.0100, L501.9910, [id number] #### [facility] [address] [place], [address] ALT [Catalytic activity/Vol] 17 U/L Normal <=46 [facility] Comment on above: Performed By: #### L 500.4100, L100.0100, L501.9910, [id number] #### [facility] [address] [place], [address] AST [Catalytic activity/Vol] 20 U/L Normal <=37 [facility] Comment on above: Performed By: #### L 500.4100, L100.0100, L501.9910, [id number] #### [facility] [address] [place], [address] Bilirubin [Mass/Vol] 0.54 mg/dL Normal 0.00-1.30 [facility] Comment on above: Performed By: #### L 500.4100, L100.0100, L501.9910, [id number] #### [facility] [address] [place], [address] BUN/CRE 19.4 RATIO Normal 10-20 [facility] Comment on above: Performed By: #### L 500.4100, L100.0100, L501.9910, [id number] #### [facility] [address] [place], [address] Calcium [Mass/Vol] 9.4 mg/dL Normal 7.6-11.0 [facility] Comment on above: Performed By: #### L 500.4100, L100.0100, L501.9910, [id number] #### [facility] [address] [place], [address] Chloride [Moles/Vol] 102 mmol/L Normal 98-108 [facility] Comment on above: Performed By: #### L 500.4100, L100.0100, L501.9910, [id number] #### [facility] [address] [place], [address] CO2 [Moles/Vol] 22.8 mmol/L Normal 21.0-32.0 [facility] Comment on above: Performed By: #### L 500.4100, L100.0100, L501.9910, [id number] #### [facility] [address] [place], [address] Creatinine [Mass/Vol] 0.91 mg/dL Normal 0.70-1.20 [facility] Comment on above: Performed By: #### L 500.4100, L100.0100, L501.9910, [id number] #### [facility] [address] [place], [address] GAP 13 Normal 5-15 [facility] Comment on above: Performed By: #### L 500.4100, L100.0100, L501.9910, [id number] #### [facility] [address] [place], [address] GFR/1.73 sq M.predicted among non-blacks MDRD (S/P/Bld) [Vol rate/Area] 91 mL/min/{1.73_m2} Normal >60 [facility] Comment on above: Result Comment: mL/m in/1.73m2 CKD-EPI Creatinine Equation (2020) Performed By: #### L 500.4100, L100.0100, L501.9910, [id number] #### [facility] [address] [place], [address] Globulin (S) [Mass/Vol] 2.8 g/dL Normal 2.2-4.2 [facility] Comment on above: Performed By: #### L 500.4100, L100.0100, L501.9910, [id number] #### [facility] [address] [place], [address] Glucose [Mass/Vol] 108 mg/dL High 70-99 [facility] Comment on above: Performed By: #### L 500.4100, L100.0100, L501.9910, [id number] #### [facility] [address] [place], [address] Potassium [Moles/Vol] 4.3 mmol/L Normal 3.3-5.1 [facility] Comment on above: Performed By: #### L 500.4100, L100.0100, L501.9910, [id number] #### [facility] [address] [place], [address] Sodium [Moles/Vol] 137 mmol/L Normal 133-145 [facility] Comment on above: Performed By: #### L 500.4100, L100.0100, L501.9910, L500.4050 #### [facility] [address] [place], [address] T PROT 7.0 g/dL Normal 5.9-8.4 [facility] Comment on above: Performed By: #### L 500.4100, L100.0100, L501.9910, L500.4050 #### [facility] [address] [place], [address] Urea nitrogen [Mass/Vol] 18 mg/dL Normal 4-19 [facility] Comment on above: Performed By: #### L 500.4100, L100.0100, L501.9910, L500.4050 #### [facility] [address] [place], [address] Lipid Profileon 03-16-2025 CHOL:HDL 3.73 Normal [facility] Comment on above: Performed By: #### L 500.4100, L100.0100, L501.9910, L500.4050 #### [facility] [address] [place], [address] Cholesterol [Mass/Vol] 195 mg/dL Normal <=200 [facility] Comment on above: Result Comment: Chol esterol level, Desirable <200 mg/dL Borderline high cholesterol 200-239 mg/dL High cholesterol >=240 mg/dL Recommendations of the NCEP Adult Treatment Panel for the following risk-cutoff thresholds for the [place] population. Performed By: #### L 500.4100, L100.0100, L501.9910, L500.4050 #### [facility] [address] [place], [address] Cholesterol in HDL [Mass/Vol] 52 mg/dL Normal [facility] Comment on above: Result Comment: Mabel onal Cholesterol Education Program (NCEP) guidelines: <40 mg/dL: Low HDL-cholesterol (major risk factor for CHD) >= 60 mg/dL: High HDL-cholesterol (negative risk factor for CHD) HDL-cholesterol is affected by a number of factors, e.g. smoking, exercise, hormones, sex and age. Performed By: #### L 500.4100, L100.0100, L501.9910, L500.4050 #### [facility] [address] [place], [address] Cholesterol in LDL [Mass/Vol] 123 mg/dL Normal [facility] Comment on above: Result Comment: Bord nnwzss=615-572 mg/dL Higher Tgyl=593 mg/dL or greater Friedwald Equation for LDL-C Performed By: #### L 500.4100, L100.0100, L501.9910, L500.4050 #### [facility] [address] [place], [address] Cholesterol in VLDL [Mass/Vol] 19 mg/dL Normal 5-40 [facility] Comment on above: Performed By: #### L 500.4100, L100.0100, L501.9910, L500.4050 #### [facility] [address] [place], [address] Triglyceride [Mass/Vol] 97 mg/dL Normal [facility] Comment on above: Result Comment: The drugs N-Acetylcysteine and Metamizole may falsely depress this assay. Normal range: <150 mg/dL Borderline High: 150-199 mg/dL High: 200-499 mg/dL Very High: >500 mg/dL Performed By: #### L 500.4100, L100.0100, L501.9910, L500.4050 #### [facility] [address] [place], [address] PSA,Total - Annual Screenon 03-16-2025 PSA,TOT SCREEN 8.09 ng/mL High 0.02-4.00 [facility] Comment on above: Result Comment: This test was performed using the [employer] tPSA method. Measured values of a patient??sample can vary depending on the testing procedure used. PSA values determined on patient samples by different testing procedures cannot be used interchangeably. If there is a change in PSA assays while monitoring therapy, sequential testing should be performed to confirm baseline values. Performed By: #### L 500.4100, L100.0100, L501.9910, L500.4050 #### [facility] [address] [place], [address] Urgent Care Visit Reporton 0 03-16-2025 Urgent Care Visit Report [facility] [address], [address] [place], [place] [address] OFFICE VISIT Date of Service: 03/16/25 MR#: [id number] Acct: [id number] Name: LOVE SKINNER Rep #: [id number] : 1955 Provider: WILMER Henriquez Age/Sex: 69/M Location: [facility] Status: Signed Intake Vital Signs 09/05/24 10:07 03/16/25 17:12 Height 6 ft 1 in 6 ft Weight: 171 lb BMI 23.1 BP 144/82 H Blood Pressure Location Lt brachial Position Sitting Pulse 70 Pulse Source Monitor Temp 98.8 F Temp Source Oral Pulse Oximetry (%) 96 Oxygen Delivery Method room air Intake Visit Reasons: CONCERN FOR UTI Chief Complaint: UTI Accompanied by: Allergies No Known Allergies Allergy (Verified 03/16/25 17:09) Medications ???Medication ???Instructions ???Recorded ???Confirmed ???Type aspirin 81 mg chewable tablet 1 tab PO DAILY 11/13/23 03/16/25 H istory (Children's Aspirin) cefdinir 300 mg capsule 300 mg PO Q12H #14 caps 11/13/23 0 03/16/25 Rx docusate sodium 100 mg capsule 100 mg PO BID #30 caps 11/13/23 Rx (Colace) tamsulosin 0.4 mg capsule (Flomax) 0.4 mg PO DAILY #14 caps 4 03/16/25 Rx amlodipine 10 mg tablet 10 mg PO QDAY 09/05/24 03/16/25 Hi story atorvastatin 20 mg tablet 20 mg PO QPM 09/05/24 03/16/25 His tory spironolactone 25 1 tab PO QDAY 09/05/24 03/16/25 Hi story mg-hydrochlorothiazid e 25 mg tablet amoxicillin 875 mg-potassium 1 tab PO BID #14 tabs 03/16/25 Rx clavulanate 125 mg tablet Have you fallen in the past year?: No PFSH Medical History (Updated 03/16/25 @ 17:22 by Cristopher GUILLEN, PA) UTI (urinary tract infection) Hematuria Stroke Surgical History (Updated 11/13/23 @ 02:40 by Susan Packer) S/P hernia surgery Social History Smoking Status: Current every day smoker tobacco type: e-cigarettes HPI HPI Chief Complaint: UTI Details: LOVE SKINNER, is a 69 M who presents to the office today for initial evaluation at [facility] for several day history of hematuria with urinary frequency. No complaints of fever, chills, sweats, lightheadedness/dizzi ness, nausea/vomiting, chest pain/shortness of breath/dyspnea on exertion, or midback pain. No changes in color/ character of stool. No [id number]-[id number]-[id number] products taken to assist. No other associated symptoms and no alleviating/aggravati ng factors. ROS Const Constitutional: No other (As above) Exam Const General: cooperative, healthy appearing and no acute distress Orientation: alert, awake Chest Chest palpation inspection: normal inspection of the chest Resp Effort Inspection: normal respiratory effort and able to speak in complete sentences Cardio Rate: regular rate Pulses: radial pulses present GI Inspection: normal to inspection Palpation: soft and nontender suprapubic (Patient describes upon self-palpation) General: No CVA tenderness Skin General: no rashes or lesions noted Neuro General: patient alert, patient awake Cognition: normal cognition Speech: speech normal Psych Appearance: grossly normal Mental Status: mental status grossly normal Mood: congruent mood Affect: normal affect Speech and Movement: speech and movement normal Attitude: cooperative Diagnoses Urinary tract infection N39.0 Hematuria R31.9 Assessment and Plan Assessment and Plan (1) Urinary tract infection: Status: Acute (2) Hematuria: Status: Acute Plan: See POC results; urine sent to lab for C/S. Augmentin as prescribed today. Urology referral for first available. Supportive measures as instructed today. Follow-up with ED sooner should symptoms only worsen or any other concerns develop. Patient and spouse both state acknowledging understanding all the above. Results POC Urinalysis Dip (Clinic) Office Urine Color YELLOW Last Edit by Minerva Guan MA on 03/16/25 17:24 Office Urine Clarity Cloudy Last Edit by Minerva Guan MA on 03/16/25 17:24 Office Urine Glucose Negative Last Edit by Minerva Guan MA on 03/16/25 17:24 Office Urine Ketones Negative Last Edit by Minerva Guan MA on 03/16/25 17:24 Off Ur Spec [place] 1.005 Last Edit by Minerva Guan MA on 03/16/25 17:24 Office Urine pH 7.0 Last Edit by Minerva Guan MA on 03/16/25 17:24 Office Urine Bilirubin Negative Last Edit by Minerva Guan MA on 03/16/25 17:24 Office Urine Urobilinogen Negative Last Edit by Minerva Guan MA on 03/16/25 17:24 Office Urine Blood Large Last Edit by Minerva Guan MA on 03/16/25 17:24 Office Urine Blood Hemolyzed NA Last Edit by Minerva Guan MA on 03/16/25 17:24 Office Urine Protein Trace Last Edit by Minerva Guan MA on 03/16/25 17:24 Office Urine Nitrate Negative Last Edit (more content not included)... Normal [facility] Immunohistochemical Stainson 11-06-2024 Immunohistochemical Stains -------- Patient Age/Sex Location Account Attending Physician -------- [facility] SK[id number]. Guanaco Crenshaw MD -------- Specimen: [id number] Received: 11/07/24 Status: JUAN Copeland Num: [id number] Spec Type: Lesion Subm Dr: Dr. Guanaco Crenshaw MD HEADER OPERATION: Punch biopsy PRE-OP DIAGNOSIS: Suspicious skin lesion TISSUE SUBMITTED: A- Upper abdomen lesion -------- MICROSCOPIC DIAGNOSIS A. Skin, upper abdomen, punch biopsy: * Compound melanocytic nevus with moderate cytologic atypia and architectural disorder - see note and Comment. * IHC for Melan-A highlights the melanocytes in the dermis and at the dermoepidermal junction; no intraepidermal involvement is observed. Note: Melanocytes at the dermo-epidermal junction extend to involve bilateral edges of the specimen. If this biopsy represents only a portion of the lesion, complete excision of the residual lesion for further evaluation is recommended, if clinically indicated. COMMENT The slides/images were reviewed in intradepartmental consultation by Dr Yaneli Fitzpatrick (dermatopathology division, [facility]). MICROSCOPIC DESCRIPTION Slides are reviewed. These tests were developed and their performance characteristics determined by [facility]. They may not have been cleared or approved by the U.S. Food and Drug Administration. The FDA has determined that such clearance or approval is not necessary. The above immunohistochemical/d ualISH markers are ordered and reviewed by the Pathologist. GROSS DESCRIPTION A. Received in formalin in a container labeled with the patient's name, date of , and with the accompanying paperwork indicating upper abdomen, punch biopsy is an unoriented 0.6 x 0.4 cm punch biopsy with a depth of 0.3 cm. The white-sin epidermis is notable for a hyperpigmented brown macule with ill-defined borders measuring 0.4 x 0.3 cm, abutting the peripheral margin. The deep margin is inked green, and it is bisected to reveal that the macule appears confined to the epidermis. Submitted entirely in A1. [facility] 11/20/2024 CPT:98183,70697 -------- Patient Age/Sex Location Account Attending Physician -------- LOVE SKINNER 69/M [facility] [id number] Dr. Guanaco Crenshaw MD -------- Signed (signature on file) Dr. Bridgett Kline MD 11/20/24 1604 -------- Normal [facility] Comment on above: Performed By: #### P IMMARJORIE #### [facility] [address] [place], [place], [id number] Laboratory - Microbiology an d Antimicrobial susceptibilityOrdered By: Cristopher Landers on 09-05-2024 SARS-CoV-2 (COVID-19) RNA TURNER+probe Ql (Unsp spec) Not detected [facility] No Panel InformationOrdered By: Cristopher Landers on 09-05-2024 Influenza Types A,B Rapid (Clinic) Pos FLU A &Neg FLU B [facility] Urgent Care Visit Reporton 0 09-05-2024 Urgent Care Visit Report [facility] [address], [address] [place], [place] [address] OFFICE VISIT Date of Service: 09/05/24 MR#: [id number] Acct: [id number] Name: LOVE SKINNER Rep #: [id number] : 1955 Provider: WILMER Henriquez Age/Sex: 69/M Location: [facility] Status: Signed Intake Vital Signs 11/14/23 09:30 09/05/24 10:01 09/05/24 10:07 09/05/24 10:15 Height 6 ft 1 in 6 ft 1 in Weight: 164 lb 8 oz BMI 21.7 BP 122/70 H 118/80 Blood Pressure Location Rt brachial Position Sitting Sitting Respiration 12 Pulse 68 97 Pulse Source NIBP Temp 98.1 F 101.5 F H Temp Source Oral Oral Pulse Oximetry (%) 99 94 100 Oxygen Delivery Method room air room air room air Comment After coughing Intake Visit Reasons: Cough Accompanied by: Self Allergies No Known Allergies Allergy (Verified 09/05/24 10:02) Medications ???Medication ???Instructions ???Recorded ???Confirmed ???Type aspirin 81 mg chewable tablet 1 tab PO DAILY 11/13/23 09/05/24 H istory (Children's Aspirin) cefdinir 300 mg capsule 300 mg PO Q12H #14 caps 11/13/23 Rx docusate sodium 100 mg capsule 100 mg PO BID #30 caps 11/13/23 R x (Colace) tamsulosin 0.4 mg capsule (Flomax) 0.4 mg PO DAILY #14 caps 2 4 09/05/24 Rx amlodipine 10 mg tablet 10 mg PO QDAY 09/05/24 09/05/24 Hi story atorvastatin 20 mg tablet 20 mg PO QPM 09/05/24 09/05/24 His tory oseltamivir 75 mg capsule 75 mg PO BID 5 days #10 caps 09/0509/05/24 Rx spironolactone 25 1 tab PO QDAY 09/05/24 09/05/24 Hi story mg-hydrochlorothiazid e 25 mg tablet Have you fallen in the past year?: Yes (patient passed out at home this past wednesday ) Nurse's Note: Patient has a cough for a couple days and a fever. [facility] Medical History Stroke Surgical History (Updated 11/13/23 @ 02:40 by Susan Packer) S/P hernia surgery Social History Smoking Status: Current every day smoker tobacco type: e-cigarettes HPI HPI Details: LOVE SKINNER, is a 69 M who presents to the office today for [facility] for approximately 48-hour history of persistent fever, chills, cough, fatigue.??? No complaints of chest pain or shortness of breath or dyspnea on exertion. Smoker. Several close contacts recently diagnosed with similar URI complaints. No over the counter taken to assist. No other associated symptoms and no other alleviating/aggravati ng factors. ROS Const Constitutional: No other (As above) Exam Const General: cooperative, healthy appearing and no acute distress Orientation: alert, awake and oriented x3 HENMT Head: normal to inspection Ears: hearing grossly normal bilaterally, external ears normal, TM's normal bilaterally and EAC's normal Nose: external nose normal, nares normal, septum normal and clear nasal discharge Face and sinus: normal facial exam, sinuses nontender and face symmetric Mouth: oral mucosae normal, lip normal, tongue normal and oropharynx normal Throat: posterior oropharynx normal, tonsils normal, uvula midline and no postnasal drainage Eyes General: appearance normal, both eyes and all related structures Neck Neck: normal visual inspection, full ROM, no lymphadenopathy, no meningeal signs and supple Neck mass: No Thyroid: thyroid normal Lymphatic: no lymphadenopathy noted Chest Chest palpation inspection: normal inspection of the chest Resp Effort Inspection: normal respiratory effort, able to speak in complete sentences and cough Quality of cough: wet (nonproductive in office today) Auscultation: Bilateral: Clear to Auscultation Cardio Palpation: normal PMI Rate: tachycardic Rhythm: regular rhythm Heart Sounds: S1 normal, S2 normal, no gallops, no murmurs and no rubs Pulses: radial pulses present Skin General: no rashes or lesions noted Neuro General: patient alert, patient awake and patient oriented x3 Cognition: normal cognition Speech: speech normal Psych Appearance: grossly normal Mental Status: mental status grossly normal Mood: congruent mood Affect: normal affect Speech and Movement: speech and movement normal Attitude: cooperative Diagnoses Influenza A??? J10.1 Assessment and Plan Assessment and Plan (1) Influenza A: Status: Acute Plan: See POC results. Tamiflu as prescribed today. Supportive measures as instructed today. 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 Follow-up with PCP in 5 to 7 days should symptoms not improve, ED sooner should symptoms worsen or any other concerns develop. Pt and spouse both state acknowledging understanding all the above. Coding Level of Care Code Off v (more content not included)... Normal [facility] Absolute lymphocyte countOrd ered By: Jhoan Laurent on 11-13-2023 Lymphocytes Auto (Unsp spec) [#/Vol] 1.89 10*3/uL 0.83-4.51 [facility] Automated lymphocyte count a s percentage of total leukocytesOrdered By: Jhoan Laurent on 11-13-2023 Lymphocytes/100 WBC Auto (Unsp spec) 22.2 % 19-41 [facility] Basophil percentageOrdered B y: Jhoan Laurent on 11-13-2023 Basophil percentage 10-25 SEEN /hpf 0-5 [facility] Basophils/100 WBC (Bld) 0.9 % 0-1 [facility] Chloride [Moles/Vol] 106 mmol/L 98-107 [facility] Eosinophils/100 WBC (Bld) 1.6 % 0-5 [facility] Glucose [Mass/Vol] 131 mg/dL 74-106 [facility] Comment on above: Fasting Glucose resu lt greater than or equal to 126 mg/dL suggests DIABETES MELLITUS per A.D.A. criteria. Hemoglobin (Bld) [Mass/Vol] 15.5 g/dL 13.0-16.5 [facility] Monocytes/100 WBC (Bld) 8.5 % 0-10 [facility] Neutrophils (Bld) [#/Vol] 5.6 10*3/uL 2.0-7.7 [facility] Neutrophils/100 WBC (Bld) 66.3 % 47-70 [facility] Potassium [Moles/Vol] 3.9 mmol/L 3.5-5.1 [facility] Sodium [Moles/Vol] 138 mmol/L 136-145 [facility] WBC (Bld) [#/Vol] 8.5 10*3/uL 4.4-11.0 [facility] Bilirubin Test strip Ql (U)O rdered By: Jhoan Laurent on 11-13-2023 Bilirubin Ql (U) Negative Negative [facility] Determination of erythrocyte mean corpuscular volume (MCV)Ordered By: Jhoan Laurent on 11-13-2023 MCV (RBC) [Entitic vol] 91.8 fL 80-94 [facility] Erythrocyte distribution wid th ratioOrdered By: Jhoan Laurent on 11-13-2023 Erythrocyte distribution width (RBC) [Ratio] 12.8 % 11.6-14.6 [facility] Erythrocyte distribution wid th standard deviationOrdered By: Jhoan Laurent on 11-13-2023 Erythrocyte distribution width (RBC) [Entitic vol] 43.0 fL 35.1-43.9 [facility] Hematocrit Auto (Bld) [Volum e fraction]Ordered By: Jhoan Laurent on 11-13-2023 Hematocrit (Bld) [Volume fraction] 46.1 % 40-54 [facility] Immature granulocytes/100 WB C Auto (Bld)Ordered By: Jhoan Laurent on 11-13-2023 Immature granulocytes/100 WBC (Bld) 0.500 % 0.0-0.9 [facility] Comment on above: IG% - Immature Granu locytes (promyelocytes, myelocytes and metamyelocytes) > 1% indicates that a LEFT SHIFT is Present. Ketones Test strip Ql (U)Ord ered By: Jhoan Laurent on 11-13-2023 Ketones Ql (U) Negative Negative [facility] - Chemistry and C hemistry - challengeOrdered By: Jhoan Laurent on 11-13-2023 CO2 [Moles/Vol] 25.0 mmol/L 21.0-32.0 [facility] Urea nitrogen/Creatinine [Mass ratio] 21.0 mg/mg 10- [facility] - Hematology and Cell countsOrdered By: Jhoan Laurent on 11-13-2023 MCH (RBC) [Entitic mass] 30.9 pg 27.0-32.0 [facility] MCHC (RBC) [Mass/Vol] 33.6 g/dL 32-36 [facility] Nucleated RBC/100 WBC (Bld) [Ratio] 0 % 0-5 [facility] Platelet mean volume (Bld) [Entitic vol] 9.4 fL 6.2-12.0 [facility] Platelets (Bld) [#/Vol] 252 10*3/uL 150-450 [facility] Mucus LM Ql (Urine sed)Order ed By: Jhoan Laurent on 11-13-2023 Mucus Ql (Urine sed) 0 SEEN /hpf [facility] Nitrite Test strip Ql (U)Ord ered By: Jhoan Laurent on 11-13-2023 Nitrite Ql (U) Negative Negative [facility] No Panel InformationOrdered By: Jhoan Laurent on 11-13-2023 Urine RBC 0-5 SEEN /hpf 0-5 [facility] Estimated Creatinine Clearance Calc 75.04 ml/min [facility] Estimated GFR (MDRD) Amer 90 mL/min >60 [facility] Comment on above: GFR Calc Estimated GFR (MDRD) Non-Af Amer 74 mL/min >60 [facility] Comment on above: Non- GFR Calc Protein Test strip Ql (U)Ord ered By: Jhoan Laurent on 11-13-2023 Protein Ql (U) Negative Negative [facility] RBC Auto (Bld) [#/Vol]Ordere d By: Jhoan Lauretn on 11-13-2023 RBC (Bld) [#/Vol] 5.02 10*6/uL 4.6-6.2 [facility] Serum or plasma calcium cal urement (mass/volume)Ordered By: Jhoan Laurent on 11-13-2023 Calcium [Mass/Vol] 8.9 mg/dL 8.5-10.1 [facility] Serum or plasma creatinine m easurement (mass/volume)Ordered By: Jhoan Laurent on 11-13-2023 Creatinine [Mass/Vol] 1.05 mg/dL 0.70-1.30 [facility] Comment on above: The validity of the calculated GFR & GFRAA in patients over 70 years has not been determined. Clinical correlation is essential. Serum or plasma urea nitroge n measurement (mass/volume)Ordered By: Jhoan Laurent on 11-13-2023 Urea nitrogen [Mass/Vol] 22 mg/dL 7-18 [facility] Squamous epithelial cells de tection in urine sediment by light microscopyOrdered By: Jhoan Laurent on 11-13-2023 Epithelial cells.squamous LM Ql (Urine sed) 0 SEEN /hpf 0-5 [facility] Thin prep Papanicolaou smear with manual screeningOrdered By: Jhoan Laurent on 11-13-2023 Thin prep Papanicolaou smear with manual screening 7 5-15 [facility] Urine blood detectionOrdered By: Jhoan Laurent on 11-13-2023 RBC Ql (U) 50 /ul Negative [facility] Urine clarityOrdered By: Alan Laurent on 11-13-2023 Clarity (U) Clear Clear [facility] Urine color determinationOrd ered By: Jhoan Laurent on 11-13-2023 Color (U) Yellow Yellow [facility] Urine glucose detectionOrder ed By: Jhoan Laurent on 11-13-2023 Glucose Ql (U) Normal mg/dl Normal [facility] Urine leukocyte esterase det ection by dipstickOrdered By: Jhoan Laurent on 11-13-2023 Leukocyte esterase Test strip Ql (U) 100 /ul Negative [facility] Urine pHOrdered By: Jhoan Laurent on 11-13-2023 pH (U) 6.5 [pH] 5.0 - 8.0 [facility] Urine sediment bacteria coun t by microscopy (number/high power field)Ordered By: Jhoan Laurent on 11-13-2023 Bacteria LM.HPF (Urine sed) [#/Area] 0 /[HPF] None Seen [facility] Urine specific gravity measu rementOrdered By: Jhoan Laurent on 11-13-2023 Specific gravity (U) [Rel density] 1.010 1.002-1.030 [facility] Urine urobilinogen measureme ntOrdered By: Jhoan Laurent on 11-13-2023 Urobilinogen Ql (U) Normal mg/dl Normal [facility] Laboratory - Hematology and Cell countson 07-31-2022 Platelet mean volume (Bld) [Entitic vol] 9.8 fL 8.7 - 12.[address] [facility] Platelets (Bld) [#/Vol] 280 10*3/uL 146 - 337 K/uL [facility] No Panel InformationOrdered By: Crys Bell on 07-31-[address] [facility] Work Phone: No Panel Informationon 07-31 Interpretation and review of laboratory results Normal [facility] PLATELET COUNTon 07-31-2022 Platelet mean volume (Bld) [Entitic vol] 9.8 fL Normal 8.7-12.3 [facility] Comment on above: Performed By: #### X M #### [facility] (DEFAULT) [address] [place] [address] Platelets (Bld) [#/Vol] 280 10*3/uL Normal 146-337 [facility] Comment on above: Performed By: #### X M #### [facility] (DEFAULT) [address] [place] [address] SARS-COV-2 RAPIDon 3 SARS-CoV-2 (COVID-19) RNA TURNER+probe Ql (Unsp spec) Not detected Normal NOT DETECTED [facility] Comment on above: Order Comment: Use r johan, foam, polyester or flocked swabs to collect a nasopharyngeal specimen. After collection, fold over the open end of the collection sleeve and seal with patient lab label, double bag in biohazard bag, and transport to the lab ANN-MARIE, no later than 60 minutes from collection. Collection must be done while wearing N-95 mask, eye protection, gown and gloves. Result Comment: [facility] Negative results do not preclude SARS-CoV-2 infection and should not be used as the sole basis for treatment or other patient management decisions. Optimum specimen types and timing for peak viral levels during infections caused by SARS-CoV-2 has not been determined. The possibility of a false negative result should especially be considered if the patient's recent exposures or clinical presentation suggest that SARS-CoV-2 infection is probable, and diagnostic tests for other causes of illness (e.g., other respiratory illness) are negative. Collection of a new specimen and re-testing may be necessary if the patient is critically ill or clinically deteriorating. This test was performed using isothermal nucleic acid amplification technology for the qualitative detection of SARS-CoV-2 nucleic acid. The test has been authorized by the FDA under an emergency use authorization for use by authorized laboratories. Performed By: #### L [email or web address] #### [facility] (DEFAULT) [address] [address] SARS-CoV-2 (COVID-19) RNA NA A+probe Ql (Unsp spec)Ordered By: Dean Rossi on 07-31-2022 Interpretation and review of laboratory results Normal [facility] SARS-CoV-2 (COVID-19) RdRp gene TURNER+probe Ql (Resp) Not detected NOT DETECTED [facility] Comment on above: [facility] Negative results do not preclude SARS-CoV-2 infection and should not be used as the sole basis for treatment or other patient management decisions. Optimum specimen types and timing for peak viral levels during infections caused by SARS-CoV-2 has not been determined. The possibility of a false negative result should especially be considered if the patient's recent exposures or clinical presentation suggest that SARS-CoV-2 infection is probable, and diagnostic tests for other causes of illness (e.g., other respiratory illness) are negative. Collection of a new specimen and re-testing may be necessary if the patient is critically ill or clinically deteriorating. This test was performed using isothermal nucleic acid amplification technology for the qualitative detection of SARS-CoV-2 nucleic acid. The test has been authorized by the FDA under an emergency use authorization for use by authorized laboratories. [facility] CBC AND ELECTRONIC DIFFon Basophils (Bld) [#/Vol] 0.06 10*3/uL Normal 0.00-0.09 [facility] Comment on above: Performed By: #### H EMO #### [facility] (DEFAULT) [address] [address] Basophils/100 WBC (Bld) 0.6 % Normal [facility] [place] Comment on above: Performed By: #### H EMOGC #### [facility] (DEFAULT) [address] [address] DIFF STATUS Electronic Differential Normal [facility] Comment on above: Performed By: #### H EMOGC #### [facility] (DEFAULT) [address] [address] Eosinophils (Bld) [#/Vol] 0.24 10*3/uL Normal 0.00-0.48 [facility] Comment on above: Performed By: #### H EMOGC #### [facility] (DEFAULT) [address] [address] Eosinophils/100 WBC (Bld) 2.4 % Normal [facility] Comment on above: Performed By: #### H EMOGC #### [facility] (DEFAULT) [address] [address] Hematocrit (Bld) [Volume fraction] 42.8 % Normal 39.6-48.8 [facility] Comment on above: Performed By: #### H EMOGC #### [facility] (DEFAULT) [address] [address] Hemoglobin (Bld) [Mass/Vol] 14.1 g/dL Normal 13.4-16.8 [facility] Comment on above: Performed By: #### H EMOGC #### [facility] (DEFAULT) [address] [address] Immature Grans % 0.4 % Normal [facility] Comment on above: Performed By: #### H EMOGC #### [facility] (DEFAULT) [address] [address] Immature Grans Absolute 0.04 K/uL Normal <=0.07 [facility] [place] Comment on above: Performed By: #### H EMOGC #### [facility] (DEFAULT) [address] [address] Lymphocytes (Bld) [#/Vol] 1.86 10*3/uL Normal 0.83-3.57 [facility] Comment on above: Performed By: #### H EMOGC #### [facility] (DEFAULT) [address] [address] Lymphocytes/100 WBC (Bld) 18.5 % Normal [facility] Comment on above: Performed By: #### H EMOGC #### [facility] (DEFAULT) [address] [place] [address] MCV (RBC) [Entitic vol] 94.1 fL Normal 79.0-94.5 [facility] [place] Comment on above: Result Comment: Resu lts inconsistent with previous results Performed By: #### H EMOGC #### U [facility] (DEFAULT) [address] [place] [address] Mean Cell Hgb 31.0 pg Normal 26.1-33.3 [facility] Comment on above: Performed By: #### H EMOGC #### U [facility] (DEFAULT) [address] [address] Mean Cell Hgb Conc 32.9 g/dL Normal 31.9-36.5 [facility] Comment on above: Performed By: #### H EMOGC #### [facility] (DEFAULT) [address] [address] Monocytes (Bld) [#/Vol] 0.99 10*3/uL High 0.24-0.93 [facility] Comment on above: Performed By: #### H EMOGC #### [facility] (DEFAULT) [address] [address] Monocytes/100 WBC (Bld) 9.8 % Normal [facility] [place] Comment on above: Performed By: #### H EMOGC #### [facility] (DEFAULT) [address] [address] Nucleated RBC 0.0 /100 WBC Normal <=0.2 [facility] Comment on above: Performed By: #### H EMOGC #### [facility] (DEFAULT) [address] [address] Platelet mean volume (Bld) [Entitic vol] 9.9 fL Normal 8.7-12.3 [facility] Comment on above: Performed By: #### H EMOGC #### [facility] (DEFAULT) [address] [place] [address] Platelets (Bld) [#/Vol] 303 10*3/uL Normal 146-337 [facility] Comment on above: Performed By: #### H EMOGC #### [facility] (DEFAULT) [address] [address] RBC (Bld) [#/Vol] 4.55 10*6/uL Normal 4.38-5.83 [facility] Comment on above: Performed By: #### H EMOGC #### [facility] (DEFAULT) [address] [place] [address] RBC Distribution 12.5 % Normal 10.9-14.3 [facility] Comment on above: Performed By: #### H EMO #### [facility] (DEFAULT) [address] [address] Segs + Bands Auto 68.3 % Normal [facility] Comment on above: Performed By: #### H EMO #### [facility] (DEFAULT) [address] [address] Segs + Bands,Absolute Auto 6.89 K/uL High 1.57-6.19 [facility] Comment on above: Performed By: #### H EMOGC #### [facility] (DEFAULT) [address] [address] WBC (Bld) [#/Vol] 10.08 10*3/uL Normal 3.73-10.10 [facility] Comment on above: Performed By: #### H EMOGC #### [place] [facility] (DEFAULT) [address] [address] CHEM 7 (LYTES,BUN,CREA,GLUC) on 07-30-2022 Anion gap [Moles/Vol] 10 mmol/L Normal 7-17 [facility] Comment on above: Performed By: #### H EMOGC #### [facility] (DEFAULT) [address] [address] Chloride [Moles/Vol] 105 mmol/L Normal 98-108 [facility] Comment on above: Performed By: #### H EMOGC #### [facility] (DEFAULT) [address] [address] CO2 [Moles/Vol] 27 mmol/L Normal 21-31 [facility] Comment on above: Performed By: #### H EMOGC #### U [facility] (DEFAULT) [address] [place] [address] Creatinine [Mass/Vol] 0.72 mg/dL Normal 0.70-1.30 [facility] Comment on above: Performed By: #### H EMOGC #### U [facility] (DEFAULT) [address] [address] eGFR, CKD-EPI, Male > Normal >=60 [facility] Comment on above: Result Comment: Repo rted eGFR is based on the CKD-EPI 2020 equation using creatinine, age, and sex. Performed By: #### H EMOGC #### [place] [facility] (DEFAULT) [address] [address] Glucose [Mass/Vol] 128 mg/dL High 70-99 [facility] [place] Comment on above: Performed By: #### H EMOGC #### [facility] (DEFAULT) [address] [address] Osmolality [Osmolality] 296 mosm/kg Normal 278-305 [facility] Comment on above: Performed By: #### H EMOGC #### [facility] (DEFAULT) [address] [place] [address] Potassium [Moles/Vol] 4.3 mmol/L Normal 3.5-5.0 [facility] Comment on above: Performed By: #### H EMOGC #### [facility] (DEFAULT) [address] [address] Sodium [Moles/Vol] 138 mmol/L Normal 135-145 [facility] [place] Comment on above: Performed By: #### H EMOGC #### [facility] (DEFAULT) [address] [place] [address] Urea nitrogen [Mass/Vol] 27 mg/dL High 7-25 [facility] Comment on above: Performed By: #### H [facility] #### [facility] (DEFAULT) [address] [place] [address] Urea nitrogen/Creatinine [Mass ratio] 38 mg/mg Normal [facility] Comment on above: Performed By: #### H [facility] #### [facility] (DEFAULT) [address] [place] [address] HIGH SENSITIVITY TROPONIN I - SINGLE ORDERon 07-30-2022 hs-Troponin I <3 Normal <53 [facility] Comment on above: Order Comment: Acute Coronary Syndrome (ACS): Initial Evaluation and Management:[email or web address] Performed By: #### H [facility] #### [facility] (DEFAULT) [address] [place] [address] Laboratory - Chemistry and C hemistry - challengeon 07-30-2022 Troponin I.cardiac DL <= 0.01 ng/mL [Mass/Vol] ng/L NINF - 53 ng/L [facility] Anion gap [Moles/Vol] 10 mmol/L 7 - 17 mmol/L [facility] Chloride [Moles/Vol] 105 mmol/L 98 - 10 8 mmol/L [facility] CO2 [Moles/Vol] 27 mmol/L 21 - 31 mmol/L [facility] Creatinine [Mass/Vol] 0.72 mg/dL 0.70 - 1.30 mg/dL [facility] GFR/1.73 sq M.predicted CKD-EPI (S/P/Bld) [Vol rate/Area] - PINF [facility] Comment on above: Reported eGFR is bas ed on the CKD-EPI 2020 equation using creatinine, age, and sex. Glucose [Mass/Vol] 128 mg/dL High 70 - 99 mg/dL [facility] Osmolality Calc [Osmolality] [address] [facility] Potassium [Moles/Vol] 4.3 mmol/L 3.5 - 5.0 mmol/L [facility] Sodium [Moles/Vol] 138 mmol/L 135 - 145 mmol/L [facility] Urea nitrogen [Mass/Vol] 27 mg/dL High 7 - 25 mg/d L [facility] Urea nitrogen/Creatinine [Mass ratio] 38 mg/mg [facility] Magnesium [Mass/Vol] 2.0 mg/dL 1.6 - 2 .6 mg/dL [facility] Laboratory - Hematology and Cell countson 07-30-2022 Basophils (Bld) [#/Vol] 0.06 10*3/uL 0.00 - 0.09 K/uL [facility] Basophils/100 WBC (Bld) 0.6 % [facility] Differential cell count method Nom (Bld) Electronic Differential [facility] Eosinophils (Bld) [#/Vol] 0.24 10*3/uL 0.00 - 0.48 K/uL [facility] Eosinophils/100 WBC (Bld) 2.4 % [facility] Erythrocyte distribution width (RBC) [Ratio] 12.5 % 10.9 - 14.3 % [facility] Hematocrit (Bld) [Volume fraction] 42.8 % 39.6 - 48.8 % [facility] Hemoglobin (Bld) [Mass/Vol] 14.1 g/dL 13.4 - 16.8 g/dL [facility] Immature granulocytes (Bld) [#/Vol] 0.04 10*3/uL NINF - 0.07 K/uL [facility] Immature granulocytes/100 WBC (Bld) 0.4 % [facility] Lymphocytes (Bld) [#/Vol] 1.86 10*3/uL 0.83 - 3.57 K/uL [facility] Lymphocytes/100 WBC (Bld) 18.5 % [facility] MCH (RBC) [Entitic mass] 31.0 pg 26. 1 - 33.[address] [facility] MCHC (RBC) [Mass/Vol] 32.9 g/dL 31.9 - 36.5 g/dL [facility] MCV (RBC) [Entitic vol] 94.1 fL 79.0 - 94.[address] [facility] Comment on above: Results inconsistent with previous results Monocytes (Bld) [#/Vol] 0.99 10*3/uL High 0.24 - 0.93 K/uL [facility] Monocytes/100 WBC (Bld) 9.8 % [facility] Neutrophils (Bld) [#/Vol] 6.89 10*3/uL High 1.57 - 6.19 K/uL [facility] Nucleated RBC/100 WBC (Bld) [Ratio] 0.0 % NINF [facility] Platelet mean volume (Bld) [Entitic vol] 9.9 fL 8.7 - 12.[address] [facility] Platelets (Bld) [#/Vol] 303 10*3/uL 146 - 337 K/uL [facility] RBC (Bld) [#/Vol] 4.55 10*6/uL [facility] Segmented neutrophils/100 WBC (Bld) 68.3 % [facility] WBC (Bld) [#/Vol] 10.08 10*3/uL 3.73 - 10 .10 K/uL [facility] MAGNESIUMon 07-30-2022 Magnesium [Mass/Vol] 2.0 mg/dL Normal 1.6-2.6 [facility] Comment on above: Performed By: #### H [facility] #### [facility] (DEFAULT) [address] [place] [address] No Panel Informationon 07-30 Interpretation and review of laboratory results Normal [facility] Interpretation and review of laboratory results Abnormal [facility] Interpretation and review of laboratory results Normal [facility] Interpretation and review of laboratory results Abnormal [facility] Portable XR Chest Viewson IMPRESSION: No acute findings appreciated. OLOGY EXAM: XR CHEST PORTABLE, 07/30/2022 00:51 AM COMPARISON: July 19, 2022 CLINICAL INDICATIONS: Chest pressure and SOB RELEVANT CLINICAL HISTORY: FINDINGS: (Adequate technique) Implanted Devices: None Thorax: Visualized lungs are clear. No pneumothorax or effusion. Stable cardiac and mediastinal silhouettes. RADIOLOGY Love Lopez, DO - 07/30/2022 EXAM: XR CHEST PORTABLE, 07/30/2022 00:51 AM COMPARISON: July 19, 2022 CLINICAL INDICATIONS: Chest pressure and SOB RELEVANT CLINICAL HISTORY: FINDINGS: (Adequate technique) Implanted Devices: None Thorax: Visualized lungs are clear. No pneumothorax or effusion. Stable cardiac and mediastinal silhouettes. IMPRESSION IMPRESSION: No acute findings appreciated. [facility] Radiology Study observation (narrative) [facility] Portable XR Chest ViewsOrder ed By: Love Lopez on 07-30-[address] [facility] Work Phone: XR CHEST PORTABLEon 07-30-19 XR CHEST PORTABLE EXAM: XR CHEST PORTABLE, 07/30/2022 00:51 AM COMPARISON: July 19, 2022 CLINICAL INDICATIONS: Chest pressure and SOB RELEVANT CLINICAL HISTORY: FINDINGS: (Adequate technique) Implanted Devices: None Thorax: Visualized lungs are clear. No pneumothorax or effusion. Stable cardiac and mediastinal silhouettes. IMPRESSION: No acute findings appreciated. Normal [facility] No Panel Informationon 07-[address] [facility] CBC AND ELECTRONIC DIFFon Basophils (Bld) [#/Vol] 0.07 10*3/uL Normal 0.00-0.09 [facility] Comment on above: Performed By: #### X M #### [facility] (DEFAULT) [address] [place] [address] Basophils/100 WBC (Bld) 0.7 % Normal [facility] [place] Comment on above: Performed By: #### X M #### [facility] (DEFAULT) [address] [place] [address] DIFF STATUS Electronic Differential Normal [facility] Comment on above: Performed By: #### X M #### [facility] (DEFAULT) [address] [place] [address] Eosinophils (Bld) [#/Vol] 0.13 10*3/uL Normal 0.00-0.48 [facility] Comment on above: Performed By: #### X M #### [facility] (DEFAULT) [address] [place] [address] Eosinophils/100 WBC (Bld) 1.3 % Normal [facility] Comment on above: Performed By: #### X M #### [facility] (DEFAULT) [address] [place] [address] Hematocrit (Bld) [Volume fraction] 38.3 % Low 39.6-48.8 [facility] Comment on above: Performed By: #### X M #### [facility] (DEFAULT) [address] [place] [address] Hemoglobin (Bld) [Mass/Vol] 13.0 g/dL Low 13.4-16.8 [facility] Comment on above: Performed By: #### X M #### [facility] (DEFAULT) [address] [place] [address] Immature Grans % 0.3 % Normal [facility] Comment on above: Performed By: #### X M #### [facility] (DEFAULT) [address] [place] [address] Immature Grans Absolute < Normal <=0.07 [facility] [place] Comment on above: Performed By: #### X M #### [facility] (DEFAULT) [address] [place] [address] Lymphocytes (Bld) [#/Vol] 2.11 10*3/uL Normal 0.83-3.57 [facility] Comment on above: Performed By: #### X M #### [facility] (DEFAULT) [address] [address] Lymphocytes/100 WBC (Bld) 20.9 % Normal [facility] Comment on above: Performed By: #### X M #### [facility] (DEFAULT) [address] [address] MCV (RBC) [Entitic vol] 89.5 fL Normal 79.0-94.5 [facility] [place] Comment on above: Performed By: #### X M #### [facility] (DEFAULT) [address] [address] Mean Cell Hgb 30.4 pg Normal 26.1-33.3 [facility] Comment on above: Performed By: #### X M #### [facility] (DEFAULT) [address] [address] Mean Cell Hgb Conc 33.9 g/dL Normal 31.9-36.5 [facility] Comment on above: Performed By: #### X M #### [facility] (DEFAULT) [address] [address] Monocytes (Bld) [#/Vol] 0.93 10*3/uL Normal 0.24-0.93 [facility] Comment on above: Performed By: #### X M #### [facility] (DEFAULT) [address] [address] Monocytes/100 WBC (Bld) 9.2 % Normal [facility] [place] Comment on above: Performed By: #### X M #### [facility] (DEFAULT) [address] [address] Nucleated RBC 0.0 /100 WBC Normal <=0.2 [facility] Comment on above: Performed By: #### X M #### [facility] (DEFAULT) [address] [place] [address] Platelet mean volume (Bld) [Entitic vol] 9.7 fL Normal 8.7-12.3 [facility] Comment on above: Performed By: #### X M #### [facility] (DEFAULT) [address] [place] [address] Platelets (Bld) [#/Vol] 329 10*3/uL Normal 146-337 [facility] Comment on above: Performed By: #### X M #### [facility] (DEFAULT) [address] [place] [address] RBC (Bld) [#/Vol] 4.28 10*6/uL Low 4.38-5.83 [facility] Comment on above: Performed By: #### X M #### [facility] (DEFAULT) [address] [place] [address] RBC Distribution 12.2 % Normal 10.9-14.3 [facility] Comment on above: Performed By: #### X M #### [facility] (DEFAULT) [address] [place] [address] Segs + Bands Auto 67.6 % Normal [facility] Comment on above: Performed By: #### X M #### [facility] (DEFAULT) [address] [place] [address] Segs + Bands,Absolute Auto 6.84 K/uL High 1.57-6.19 [facility] Comment on above: Performed By: #### X M #### [facility] (DEFAULT) [address] [place] [address] WBC (Bld) [#/Vol] 10.11 10*3/uL High 3.73-10.10 [facility] Comment on above: Performed By: #### X M #### [facility] (DEFAULT) [address] [place] [address] CHEM 7 (LYTES,BUN,CREA,GLUC) on 07-27-2022 Anion gap [Moles/Vol] 12 mmol/L Normal 7-17 [facility] Comment on above: Performed By: #### U RIN #### [facility] (DEFAULT) [address] [place] [address] Chloride [Moles/Vol] 105 mmol/L Normal 98-108 [facility] Comment on above: Performed By: #### U RIN #### [facility] (DEFAULT) [address] [place] [address] CO2 [Moles/Vol] 23 mmol/L Normal 21-31 [facility] Comment on above: Performed By: #### U RIN #### [facility] (DEFAULT) [address] [place] [address] Creatinine [Mass/Vol] 0.70 mg/dL Normal 0.70-1.30 [facility] Comment on above: Performed By: #### U RIN #### [facility] (DEFAULT) [address] [place] [address] eGFR, CKD-EPI, Male > Normal >=60 [facility] Comment on above: Result Comment: Repo rted eGFR is based on the CKD-EPI 2020 equation using creatinine, age, and sex. Performed By: #### U RIN #### [facility] (DEFAULT) [address] [place] [address] Glucose [Mass/Vol] 146 mg/dL High 70-99 [facility] Comment on above: Performed By: #### U RIN #### [facility] (DEFAULT) [address] [place] [address] Osmolality [Osmolality] 292 mosm/kg Normal 278-305 [facility] Comment on above: Performed By: #### U RIN #### [facility] (DEFAULT) [address] [place] [address] Potassium [Moles/Vol] 4.1 mmol/L Normal 3.5-5.0 [facility] Comment on above: Performed By: #### U RIN #### [facility] (DEFAULT) [address] [place] [address] Sodium [Moles/Vol] 136 mmol/L Normal 135-145 [facility] Comment on above: Performed By: #### U RIN #### [facility] (DEFAULT) [address] [place] [address] Urea nitrogen [Mass/Vol] 22 mg/dL Normal 7-25 [facility] Comment on above: Performed By: #### U RIN #### [facility] (DEFAULT) [address] [place] [address] Urea nitrogen/Creatinine [Mass ratio] 31 mg/mg Normal [facility] Comment on above: Performed By: #### U RIN #### [facility] (DEFAULT) [address] [place] [address] Laboratory - Chemistry and C hemistry - challengeon 07-27-2022 Anion gap [Moles/Vol] 12 mmol/L 7 - 17 mmol/L [facility] Chloride [Moles/Vol] 105 mmol/L 98 - 10 8 mmol/L [facility] CO2 [Moles/Vol] 23 mmol/L 21 - 31 mmol/L [facility] Creatinine [Mass/Vol] 0.70 mg/dL 0.70 - 1.30 mg/dL [facility] GFR/1.73 sq M.predicted CKD-EPI (S/P/Bld) [Vol rate/Area] - PINF [facility] Comment on above: Reported eGFR is bas ed on the CKD-EPI 2020 equation using creatinine, age, and sex. Glucose [Mass/Vol] 146 mg/dL High 70 - 99 mg/dL [facility] Osmolality Calc [Osmolality] [address] [facility] Potassium [Moles/Vol] 4.1 mmol/L 3.5 - 5.0 mmol/L [facility] Sodium [Moles/Vol] 136 mmol/L 135 - 145 mmol/L [facility] Urea nitrogen [Mass/Vol] 22 mg/dL 7 - 25 mg/d L [facility] Urea nitrogen/Creatinine [Mass ratio] 31 mg/mg [facility] Magnesium [Mass/Vol] 2.0 mg/dL 1.6 - 2 .6 mg/dL [facility] Laboratory - Hematology and Cell countson 07-27-2022 Basophils (Bld) [#/Vol] 0.07 10*3/uL 0.00 - 0.09 K/uL [facility] Basophils/100 WBC (Bld) 0.7 % [facility] Differential cell count method Nom (Bld) Electronic Differential [facility] Eosinophils (Bld) [#/Vol] 0.13 10*3/uL 0.00 - 0.48 K/uL [facility] Eosinophils/100 WBC (Bld) 1.3 % [facility] Erythrocyte distribution width (RBC) [Ratio] 12.2 % 10.9 - 14.3 % [facility] Hematocrit (Bld) [Volume fraction] 38.3 % Low 39.6 - 48.8 % [facility] Hemoglobin (Bld) [Mass/Vol] 13.0 g/dL Low 13.4 - 16.8 g/dL [facility] Immature granulocytes (Bld) [#/Vol] K/uL NINF - 0.07 K/uL [facility] Immature granulocytes/100 WBC (Bld) 0.3 % [facility] Lymphocytes (Bld) [#/Vol] 2.11 10*3/uL 0.83 - 3.57 K/uL [facility] Lymphocytes/100 WBC (Bld) 20.9 % [facility] MCH (RBC) [Entitic mass] 30.4 pg 26. 1 - 33.[address] [facility] MCHC (RBC) [Mass/Vol] 33.9 g/dL 31.9 - 36.5 g/dL [facility] MCV (RBC) [Entitic vol] 89.5 fL 79.0 - 94.[address] [facility] Monocytes (Bld) [#/Vol] 0.93 10*3/uL 0.24 - 0.93 K/uL [facility] [facility] Monocytes/100 WBC (Bld) 9.2 % [facility] Neutrophils (Bld) [#/Vol] 6.84 10*3/uL High 1.57 - 6.19 K/uL [facility] Nucleated RBC/100 WBC (Bld) [Ratio] 0.0 % NINF [facility] Platelet mean volume (Bld) [Entitic vol] 9.7 fL 8.7 - 12.[address] [facility] Platelets (Bld) [#/Vol] 329 10*3/uL 146 - 337 K/uL [facility] RBC (Bld) [#/Vol] 4.28 10*6/uL Low [facility] Segmented neutrophils/100 WBC (Bld) 67.6 % [facility] WBC (Bld) [#/Vol] 10.11 10*3/uL High 3.73 - 10 .10 K/uL [facility] MAGNESIUMon 07-27-2022 Magnesium [Mass/Vol] 2.0 mg/dL Normal 1.6-2.6 [facility] Comment on above: Performed By: #### U RIN #### [facility] (DEFAULT) [address] [place] [address] No Panel Informationon 07-27 Interpretation and review of laboratory results Abnormal [facility] Interpretation and review of laboratory results Normal [facility] Interpretation and review of laboratory results Abnormal [facility] CALCIUMon 07-26-2022 Calcium [Mass/Vol] 8.6 mg/dL Normal 8.6-10.5 [facility] [place] Comment on above: Performed By: #### X M #### [facility] (DEFAULT) [address] [place] [address] CBC AND ELECTRONIC DIFFon Basophils (Bld) [#/Vol] 0.07 10*3/uL Normal 0.00-0.09 [facility] Comment on above: Performed By: #### X M #### [facility] (DEFAULT) [address] [place] [address] 97100 Basophils/100 WBC (Bld) 0.6 % Normal O [facility] [place] Comment on above: Performed By: #### X M #### [facility] (DEFAULT) [address] [place] [address] 45440 DIFF STATUS Electronic Differential Normal [facility] Comment on above: Performed By: #### X M #### [facility] (DEFAULT) [address] [place] [address] 85299 Eosinophils (Bld) [#/Vol] 0.13 10*3/uL Normal 0.00-0.48 [facility] Comment on above: Performed By: #### X M #### [facility] (DEFAULT) [address] [place] [address] 30958 Eosinophils/100 WBC (Bld) 1.1 % Normal [facility] Comment on above: Performed By: #### X M #### [facility] (DEFAULT) [address] [place] [address] 98937 Hematocrit (Bld) [Volume fraction] 38.7 % Low 39.6-48.8 [facility] Comment on above: Performed By: #### X M #### [facility] (DEFAULT) [address] [place] [address] 71597 Hemoglobin (Bld) [Mass/Vol] 13.5 g/dL Normal 13.4-16.8 [facility] Comment on above: Performed By: #### X M #### [facility] (DEFAULT) [address] [place] [address] 36118 Immature Grans % 0.3 % Normal [facility] Comment on above: Performed By: #### X M #### U [facility] (DEFAULT) [address] [place] [address] 56707 Immature Grans Absolute 0.04 K/uL Normal <=0.07 O [facility] [place] Comment on above: Performed By: #### X M #### [facility] (DEFAULT) [address] [place] [address] 39091 Lymphocytes (Bld) [#/Vol] 2.78 10*3/uL Normal 0.83-3.57 [facility] Comment on above: Performed By: #### X M #### [facility] (DEFAULT) [address] [place] [address] 95018 Lymphocytes/100 WBC (Bld) 23.7 % Normal [facility] Comment on above: Performed By: #### X M #### [facility] (DEFAULT) [address] [address] MCV (RBC) [Entitic vol] 87.6 fL Normal 79.0-94.5 O [facility] [place] Comment on above: Performed By: #### X M #### [facility] (DEFAULT) [address] [place] [address] 82861 Mean Cell Hgb 30.5 pg Normal 26.1-33.3 [facility] Comment on above: Performed By: #### X M #### [facility] (DEFAULT) [address] [address] Mean Cell Hgb Conc 34.9 g/dL Normal 31.9-36.5 [facility] Comment on above: Performed By: #### X M #### [facility] (DEFAULT) [address] [place] [address] 94455 Monocytes (Bld) [#/Vol] 1.08 10*3/uL High 0.24-0.93 [facility] Comment on above: Performed By: #### X M #### [facility] (DEFAULT) [address] [address] Monocytes/100 WBC (Bld) 9.2 % Normal O [facility] [place] Comment on above: Performed By: #### X M #### [facility] (DEFAULT) [address] [place] [address] 97683 Nucleated RBC 0.0 /100 WBC Normal <=0.2 [facility] Comment on above: Performed By: #### X M #### [facility] (DEFAULT) [address] [place] [address] 78525 Platelet mean volume (Bld) [Entitic vol] 9.4 fL Normal 8.7-12.3 [facility] Comment on above: Performed By: #### X M #### [facility] (DEFAULT) [address] [place] [address] 65794 Platelets (Bld) [#/Vol] 325 10*3/uL Normal 146-337 [facility] Comment on above: Performed By: #### X M #### [facility] (DEFAULT) [address] [place] [address] 57464 RBC (Bld) [#/Vol] 4.42 10*6/uL Normal 4.38-5.83 [facility] Comment on above: Performed By: #### X M #### [facility] (DEFAULT) [address] [place] [address] 95803 RBC Distribution 11.9 % Normal 10.9-14.3 [facility] Comment on above: Performed By: #### X M #### [facility] (DEFAULT) [address] [place] [address] 08648 Segs + Bands Auto 65.1 % Normal [facility] Comment on above: Performed By: #### X M #### [facility] (DEFAULT) [address] [place] [address] 94613 Segs + Bands,Absolute Auto 7.64 K/uL High 1.57-6.19 [facility] Comment on above: Performed By: #### X M #### [facility] (DEFAULT) [address] [place] [address] 59544 WBC (Bld) [#/Vol] 11.74 10*3/uL High 3.73-10.10 [facility] Comment on above: Performed By: #### X M #### U [facility] (DEFAULT) [address] [place] [address] 78773 CHEM 7 (LYTES,BUN,CREA,GLUC) on 07-26-2022 Anion gap [Moles/Vol] 11 mmol/L Normal 7-17 [facility] Comment on above: Performed By: #### L [id number] #### U [facility] (DEFAULT) [address] [place] [address] 07573 Chloride [Moles/Vol] 101 mmol/L Normal 98-108 [facility] Comment on above: Performed By: #### L [id number] #### U [facility] (DEFAULT) [address] [place] [address] 60662 CO2 [Moles/Vol] 24 mmol/L Normal 21-31 [facility] Comment on above: Performed By: #### L [id number] #### U [facility] (DEFAULT) [address] [place] [address] 73660 Creatinine [Mass/Vol] 0.63 mg/dL Low 0.70-1.30 [facility] Comment on above: Performed By: #### L [id number] #### U [facility] (DEFAULT) [address] [place] [address] 85726 eGFR, CKD-EPI, Male > Normal >=60 [facility] Comment on above: Result Comment: Repo rted eGFR is based on the CKD-EPI 2020 equation using creatinine, age, and sex. Performed By: #### L [id number] #### [facility] (DEFAULT) [address] [place] [address] 31546 Glucose [Mass/Vol] 118 mg/dL High 70-99 [facility] [place] Comment on above: Performed By: #### L [id number] #### U [facility] (DEFAULT) [address] [place] [address] 96441 Osmolality [Osmolality] 282 mosm/kg Normal 278-305 [facility] Comment on above: Performed By: #### L [id number] #### [facility] (DEFAULT) [address] [place] [address] Potassium [Moles/Vol] 4.3 mmol/L Normal 3.5-5.0 [facility] Comment on above: Performed By: #### L [id number] #### [facility] (DEFAULT) [address] [place] [address] Sodium [Moles/Vol] 132 mmol/L Low 135-145 [facility] Comment on above: Performed By: #### L [id number] #### [facility] (DEFAULT) [address] [place] [address] 86590 Urea nitrogen [Mass/Vol] 19 mg/dL Normal 7-25 [facility] Comment on above: Performed By: #### L [id number] #### [facility] (DEFAULT) [address] [place] [address] 51774 Urea nitrogen/Creatinine [Mass ratio] 30 mg/mg Normal [facility] Comment on above: Performed By: #### L [id number] #### [facility] (DEFAULT) [address] [place] [address] 21143 Laboratory - Chemistry and C hemistry - challengeon 07-26-2022 Anion gap [Moles/Vol] 11 mmol/L 7 - 17 mmol/L [facility] Chloride [Moles/Vol] 101 mmol/L 98 - 10 8 mmol/L [facility] CO2 [Moles/Vol] 24 mmol/L 21 - 31 mmol/L [facility] Creatinine [Mass/Vol] 0.63 mg/dL Low 0.70 - 1.30 mg/dL [facility] GFR/1.73 sq M.predicted CKD-EPI (S/P/Bld) [Vol rate/Area] - [facility] Comment on above: Reported eGFR is bas ed on the CKD-EPI 2020 equation using creatinine, age, and sex. Glucose [Mass/Vol] 118 mg/dL High 70 - 99 mg/dL [facility] Magnesium [Mass/Vol] 1.9 mg/dL 1.6 - 2 .6 mg/dL [facility] Osmolality Calc [Osmolality] [address] [facility] Phosphate [Mass/Vol] 3.5 mg/dL 2.2 - 4 .6 mg/dL [facility] Potassium [Moles/Vol] 4.3 mmol/L 3.5 - 5.0 mmol/L [facility] Sodium [Moles/Vol] 132 mmol/L Low 135 - 145 mmol/L [facility] Urea nitrogen [Mass/Vol] 19 mg/dL 7 - 25 mg/d L [facility] Urea nitrogen/Creatinine [Mass ratio] 30 mg/mg [facility] Calcium [Mass/Vol] 8.6 mg/dL 8.6 - 10. 5 mg/dL [facility] Laboratory - Coagulationon 0 07-26-2022 aPTT Coag (PPP) [Time] 32.9 s [facility] INR Coag (Bld) [Relative time] 1.0 {INR} 0.9 - 1.[address] [facility] PT Coag (PPP) [Time] 13.[address] [facility] Laboratory - Hematology and Cell countson 07-26-2022 Basophils (Bld) [#/Vol] 0.07 10*3/uL 0.00 - 0.09 K/uL [facility] Basophils/100 WBC (Bld) 0.6 % O [facility] Differential cell count method Nom (Bld) Electronic Differential [facility] Eosinophils (Bld) [#/Vol] 0.13 10*3/uL 0.00 - 0.48 K/uL [facility] Eosinophils/100 WBC (Bld) 1.1 % [facility] Erythrocyte distribution width (RBC) [Ratio] 11.9 % 10.9 - 14.3 % [facility] Hematocrit (Bld) [Volume fraction] 38.7 % Low 39.6 - 48.8 % [facility] Hemoglobin (Bld) [Mass/Vol] 13.5 g/dL 13.4 - 16.8 g/dL [facility] Immature granulocytes (Bld) [#/Vol] 0.04 10*3/uL NINF - 0.07 K/uL [facility] Immature granulocytes/100 WBC (Bld) 0.3 % [facility] Lymphocytes (Bld) [#/Vol] 2.78 10*3/uL 0.83 - 3.57 K/uL [facility] Lymphocytes/100 WBC (Bld) 23.7 % [facility] MCH (RBC) [Entitic mass] 30.5 pg 26. 1 - 33.[address] [facility] MCHC (RBC) [Mass/Vol] 34.9 g/dL 31.9 - 36.5 g/dL [facility] MCV (RBC) [Entitic vol] 87.6 fL 79.0 - 94.[address] [facility] Monocytes (Bld) [#/Vol] 1.08 10*3/uL High 0.24 - 0.93 K/uL [facility] Monocytes/100 WBC (Bld) 9.2 % [facility] Neutrophils (Bld) [#/Vol] 7.64 10*3/uL High 1.57 - 6.19 K/uL [facility] Nucleated RBC/100 WBC (Bld) [Ratio] 0.0 % [facility] Platelet mean volume (Bld) [Entitic vol] 9.4 fL 8.7 - 12.[address] [facility] Platelets (Bld) [#/Vol] 325 10*3/uL 146 - 337 K/uL [facility] RBC (Bld) [#/Vol] 4.42 10*6/uL [facility] Segmented neutrophils/100 WBC (Bld) 65.1 % [facility] WBC (Bld) [#/Vol] 11.74 10*3/uL High 3.73 - 10 .10 K/uL [facility] MAGNESIUMon 07-26-2022 Magnesium [Mass/Vol] 1.9 mg/dL Normal 1.6-2.6 [facility] Comment on above: Performed By: #### X M #### [facility] (DEFAULT) [address] [place] [address] No Panel Informationon 07-[address] [facility] Interpretation and review of laboratory results Normal [facility] Interpretation and review of laboratory results Abnormal [facility] Interpretation and review of laboratory results Normal [facility] Interpretation and review of laboratory results Abnormal [facility] PHOSPHATE, INORGANICon 07-26 Phosphorous 3.5 mg/dL Normal 2.2-4.6 [facility] Comment on above: Performed By: #### L [id number] #### [facility] (DEFAULT) [address] [place] [address] 34768 PT,INR,PTTon 07-26-2022 aPTT Coag (Bld) [Time] 32.9 s Normal 24.0-34.3 [facility] Comment on above: Performed By: #### H EMOGC #### [facility] (DEFAULT) [address] [place] [address]72 INR Coag (PPP) [Relative time] 1.0 {INR} Normal 0.9-1.1 [facility] Comment on above: Performed By: #### H EMOGC #### [facility] (DEFAULT) [address] [place] [address] 85784 PT Coag (PPP) [Time] 13.7 s Normal 11.9-14.2 [facility] Comment on above: Performed By: #### H EMOGC #### [facility] (DEFAULT) [address] [place] [address] 47205 CBC,PLATELETSon 07-25-2022 Hematocrit (Bld) [Volume fraction] 37.1 % Low 39.6-48.8 [facility] Comment on above: Performed By: #### U RIN #### [facility] (DEFAULT) [address] [place] [address]647 Hemoglobin (Bld) [Mass/Vol] 13.0 g/dL Low 13.4-16.8 [facility] Comment on above: Performed By: #### U RIN #### [facility] (DEFAULT) [address] [address] MCV (RBC) [Entitic vol] 88.1 fL Normal 79.0-94.5 O [facility] [place] Comment on above: Performed By: #### U RIN #### [facility] (DEFAULT) [address] [address] Mean Cell Hgb 30.9 pg Normal 26.1-33.3 [facility] Comment on above: Performed By: #### U RIN #### [facility] (DEFAULT) [address] [address] Mean Cell Hgb Conc 35.0 g/dL Normal 31.9-36.5 [facility] Comment on above: Performed By: #### U RIN #### U [facility] (DEFAULT) [address] [address] Platelet mean volume (Bld) [Entitic vol] 9.6 fL Normal 8.7-12.3 [facility] Comment on above: Performed By: #### U RIN #### [facility] (DEFAULT) [address] [address] Platelets (Bld) [#/Vol] 316 10*3/uL Normal 146-337 [facility] Comment on above: Performed By: #### U RIN #### U [facility] (DEFAULT) [address] [address] RBC (Bld) [#/Vol] 4.21 10*6/uL Low 4.38-5.83 [facility] Comment on above: Performed By: #### U RIN #### U [facility] (DEFAULT) [address] [address] RBC Distribution 11.9 % Normal 10.9-14.3 [facility] Comment on above: Performed By: #### U RIN #### U [facility] (DEFAULT) [address] [place] [address] 98305 WBC (Bld) [#/Vol] 10.66 10*3/uL High 3.73-10.10 [facility] Comment on above: Performed By: #### U RIN #### U [facility] (DEFAULT) [address] [place] [address] 33152 CHEM 7 (LYTES,BUN,CREA,GLUC) on 07-25-2022 Anion gap [Moles/Vol] 12 mmol/L Normal 7-17 [facility] Comment on above: Performed By: #### U RIN #### [facility] (DEFAULT) [address] [place] [address] 70447 Chloride [Moles/Vol] 101 mmol/L Normal 98-108 [facility] Comment on above: Performed By: #### U RIN #### [facility] (DEFAULT) [address] [place] [address] 88331 CO2 [Moles/Vol] 24 mmol/L Normal 21-31 [facility] Comment on above: Performed By: #### U RIN #### [facility] (DEFAULT) [address] [place] [address] 39274 Creatinine [Mass/Vol] 0.58 mg/dL Low 0.70-1.30 [facility] Comment on above: Performed By: #### U RIN #### [facility] (DEFAULT) [address] [place] [address] 75310 eGFR, CKD-EPI, Male > Normal >=60 [facility] Comment on above: Result Comment: Repo rted eGFR is based on the CKD-EPI 2020 equation using creatinine, age, and sex. Performed By: #### U RIN #### U [facility] (DEFAULT) [address] [place] [address] 49518 Glucose [Mass/Vol] 124 mg/dL High 70-99 [facility] Comment on above: Performed By: #### U RIN #### U [facility] (DEFAULT) [address] [place] [address] Osmolality [Osmolality] 285 mosm/kg Normal 278-305 [facility] Comment on above: Performed By: #### U RIN #### U [facility] (DEFAULT) [address] [place] [address] Potassium [Moles/Vol] 4.2 mmol/L Normal 3.5-5.0 [facility] Comment on above: Performed By: #### U RIN #### [facility] (DEFAULT) [address] [place] [address] Sodium [Moles/Vol] 133 mmol/L Low 135-145 [facility] Comment on above: Performed By: #### U RIN #### [facility] (DEFAULT) [address] [place] [address] 50008 Urea nitrogen [Mass/Vol] 22 mg/dL Normal 7-25 [facility] Comment on above: Performed By: #### U RIN #### [facility] (DEFAULT) [address] [place] [address] 76830 Urea nitrogen/Creatinine [Mass ratio] 38 mg/mg Normal [facility] Comment on above: Performed By: #### U RIN #### [facility] (DEFAULT) [address] [place] [address] 59503 Laboratory - Chemistry and C hemistry - challengeon 07-25-2022 Anion gap [Moles/Vol] 12 mmol/L 7 - 17 mmol/L [facility] Chloride [Moles/Vol] 101 mmol/L 98 - 10 8 mmol/L [facility] CO2 [Moles/Vol] 24 mmol/L 21 - 31 mmol/L [facility] Creatinine [Mass/Vol] 0.58 mg/dL Low 0.70 - 1.30 mg/dL [facility] GFR/1.73 sq M.predicted CKD-EPI (S/P/Bld) [Vol rate/Area] - [facility] Comment on above: Reported eGFR is bas ed on the CKD-EPI 2020 equation using creatinine, age, and sex. Glucose [Mass/Vol] 124 mg/dL High 70 - 99 mg/dL [facility] Magnesium [Mass/Vol] 1.9 mg/dL 1.6 - 2 .6 mg/dL [facility] Osmolality Calc [facility]olality] [facility] Potassium [Moles/Vol] 4.2 mmol/L 3.5 - 5.0 mmol/L [facility] Sodium [Moles/Vol] 133 mmol/L Low 135 - 145 mmol/L [facility] Urea nitrogen [Mass/Vol] 22 mg/dL 7 - 25 mg/d L [facility] Urea nitrogen/Creatinine [Mass ratio] 38 mg/mg [facility] Laboratory - Coagulationon 1 aPTT Coag (PPP) [Time] 33.2 s [facility] INR Coag (Bld) [Relative time] 1.1 {INR} 0.9 - 1.[address] [facility] PT Coag (PPP) [Time] 13.[address] [facility] Laboratory - Hematology and Cell countson 07-25-2022 Erythrocyte distribution width (RBC) [Ratio] 11.9 % 10.9 - 14.3 % [facility] Hematocrit (Bld) [Volume fraction] 37.1 % Low 39.6 - 48.8 % [facility] Hemoglobin (Bld) [Mass/Vol] 13.0 g/dL Low 13.4 - 16.8 g/dL [facility] MCH (RBC) [Entitic mass] 30.9 pg 26. 1 - 33.[address] [facility] MCHC (RBC) [Mass/Vol] 35.0 g/dL 31.9 - 36.5 g/dL [facility] MCV (RBC) [Entitic vol] 88.1 fL 79.0 - 94.[address] [facility] Platelet mean volume (Bld) [Entitic vol] 9.6 fL 8.7 - 12.[address] [facility] Platelets (Bld) [#/Vol] 316 10*3/uL 146 - 337 K/uL [facility] RBC (Bld) [#/Vol] 4.21 10*6/uL Low [facility] WBC (Bld) [#/Vol] 10.66 10*3/uL High 3.73 - 10 .10 K/uL [facility] MAGNESIUMon 07-25-2022 Magnesium [Mass/Vol] 1.9 mg/dL Normal 1.6-2.6 [facility] Comment on above: Performed By: #### U RIN #### [facility] (DEFAULT) [address] [address] No Panel Informationon 07-25 ABO/RH(D) TYPE Positive [facility] Interpretation and review of laboratory results Normal [facility] Interpretation and review of laboratory results Abnormal [facility] Interpretation and review of laboratory results Normal [facility] Interpretation and review of laboratory results Abnormal [facility] No Panel InformationOrdered By: Unassigned Pacs on 07-25-[address] [facility] Work Phone: PT,INR,PTTon 07-25-2022 aPTT Coag (Bld) [Time] 33.2 s Normal 24.0-34.3 [facility] Comment on above: Performed By: #### X M #### [facility] (DEFAULT) [address] [place] [address]11 INR Coag (PPP) [Relative time] 1.1 {INR} Normal 0.9-1.1 [facility] Comment on above: Performed By: #### X M #### [facility] (DEFAULT) [address] [place] [address] PT Coag (PPP) [Time] 13.9 s Normal 11.9-14.2 [facility] Comment on above: Performed By: #### X M #### [facility] (DEFAULT) [address] [place] [address] 91858 TYPE AND SCREENon 07-25-2022 ABO/RH(D) TYPE Positive Normal [facility] Comment on above: Performed By: #### X M #### [facility] (DEFAULT) [address] [place] [address] 17986 Bacteria identified Cx Nom ( Bld)on 07-24-2022 Bacteria identified Cx Nom (Unsp spec) NO GROWTH DAY 5 OF 5 [facility] Bacteria identified Cx Nom (Unsp spec) NO GROWTH DAY [address] [facility] Results may be compromised due to volume of BACT\ALERT bottle below 8mLs. The optimal blood volume is 8-10 mls per aerobic/anaerobic blood culture bottle [facility] CBC,PLATELETSon 07-24-2022 Hematocrit (Bld) [Volume fraction] 38.2 % Low 39.6-48.8 [facility] Comment on above: Performed By: #### X M #### [facility] (DEFAULT) [address] [place] [address]240 Hemoglobin (Bld) [Mass/Vol] 13.1 g/dL Low 13.4-16.8 [facility] Comment on above: Performed By: #### X M #### [facility] (DEFAULT) [address] [place] [address] 96279 MCV (RBC) [Entitic vol] 88.2 fL Normal 79.0-94.5 O [facility] Comment on above: Result Comment: Resu lts inconsistent with previous results Performed By: #### X M #### [facility] (DEFAULT) [address] [place] [address] 28031 Mean Cell Hgb 30.3 pg Normal 26.1-33.3 [facility] Comment on above: Performed By: #### X M #### [facility] (DEFAULT) [address] [place] [address] 51783 Mean Cell Hgb Conc 34.3 g/dL Normal 31.9-36.5 [facility] Comment on above: Performed By: #### X M #### [facility] (DEFAULT) [address] [place] [address] 0[address] Platelet mean volume (Bld) [Entitic vol] 9.4 fL Normal 8.7-12.3 [facility] Comment on above: Performed By: #### X M #### [facility] (DEFAULT) [address] [place] [address] Platelets (Bld) [#/Vol] 357 10*3/uL High 146-337 [facility] Comment on above: Performed By: #### X M #### [facility] (DEFAULT) [address] [place] [address] 52526 RBC (Bld) [#/Vol] 4.33 10*6/uL Low 4.38-5.83 [facility] Comment on above: Performed By: #### X M #### [facility] (DEFAULT) [address] [place] [address] 77278 RBC Distribution 12.0 % Normal 10.9-14.3 [facility] Comment on above: Performed By: #### X M #### [facility] (DEFAULT) [address] [place] [address] 08155 WBC (Bld) [#/Vol] 14.65 10*3/uL High 3.73-10.10 [facility] Comment on above: Performed By: #### X M #### [facility] (DEFAULT) [address] [place] [address] 27260 CHEM 7 (LYTES,BUN,CREA,GLUC) on 07-24-2022 Anion gap [Moles/Vol] 12 mmol/L Normal 7-17 [facility] Comment on above: Performed By: #### X M #### [facility] (DEFAULT) [address] [place] [address] 54080 Chloride [Moles/Vol] 102 mmol/L Normal 98-108 [facility] Comment on above: Performed By: #### X M #### [facility] (DEFAULT) [address] [place] [address] CO2 [Moles/Vol] 23 mmol/L Normal 21-31 [facility] Comment on above: Performed By: #### X M #### U [facility] (DEFAULT) [address] [place] [address] 58972 Creatinine [Mass/Vol] 0.68 mg/dL Low 0.70-1.30 [facility] Comment on above: Performed By: #### X M #### U [facility] (DEFAULT) [address] [address] eGFR, CKD-EPI, Male > Normal >=60 [facility] Comment on above: Result Comment: Repo rted eGFR is based on the CKD-EPI 2020 equation using creatinine, age, and sex. Performed By: #### X M #### [facility] (DEFAULT) [address] [address] Glucose [Mass/Vol] 126 mg/dL High 70-99 [facility] Comment on above: Performed By: #### X M #### [facility] (DEFAULT) [address] [address] Osmolality [Osmolality] 286 mosm/kg Normal 278-305 [facility] Comment on above: Performed By: #### X M #### [facility] (DEFAULT) [address] [place] [address]509 Potassium [Moles/Vol] 4.3 mmol/L Normal 3.5-5.0 [facility] Comment on above: Performed By: #### X M #### [facility] (DEFAULT) [address] [address] Sodium [Moles/Vol] 133 mmol/L Low 135-145 [facility] [place] Comment on above: Performed By: #### X M #### [facility] (DEFAULT) [address] [place] [address] 74640 Urea nitrogen [Mass/Vol] 24 mg/dL Normal 7-25 [facility] Comment on above: Performed By: #### X M #### [facility] (DEFAULT) [address] [place] [address] Urea nitrogen/Creatinine [Mass ratio] 35 mg/mg Normal [facility] Comment on above: Performed By: #### X M #### [facility] (DEFAULT) [address] [place] [address]43 Laboratory - Chemistry and C hemistry - challengeon 07-24-2022 Glucose [Mass/Vol] 149 mg/dL High 70 - 99 mg/dL [facility] Magnesium [Mass/Vol] 1.8 mg/dL 1.6 - 2 .6 mg/dL [facility] Laboratory - Chemistry and C hemistry - challengeOrdered By: Denise Ceballos on 07-24-2022 Anion gap [Moles/Vol] 12 mmol/L 7 - 17 mmol/L [facility] Chloride [Moles/Vol] 102 mmol/L 98 - 10 8 mmol/L [facility] CO2 [Moles/Vol] 23 mmol/L 21 - 31 mmol/L [facility] Creatinine [Mass/Vol] 0.68 mg/dL Low 0.70 - 1.30 mg/dL [facility] GFR/1.73 sq M.predicted CKD-EPI (S/P/Bld) [Vol rate/Area] - PINF [facility] Comment on above: Reported eGFR is bas ed on the CKD-EPI 2020 equation using creatinine, age, and sex. Glucose [Mass/Vol] 126 mg/dL High 70 - 99 mg/dL [facility] Osmolality Calc [Osmolality] [address] [facility] Potassium [Moles/Vol] 4.3 mmol/L 3.5 - 5.0 mmol/L [facility] Sodium [Moles/Vol] 133 mmol/L Low 135 - 145 mmol/L [facility] Urea nitrogen [Mass/Vol] 24 mg/dL 7 - 25 mg/d L [facility] Urea nitrogen/Creatinine [Mass ratio] 35 mg/mg [facility] Laboratory - Hematology and Cell countson 07-24-2022 Erythrocyte distribution width (RBC) [Ratio] 12.0 % 10.9 - 14.3 % [facility] Hematocrit (Bld) [Volume fraction] 38.2 % Low 39.6 - 48.8 % [facility] Hemoglobin (Bld) [Mass/Vol] 13.1 g/dL Low 13.4 - 16.8 g/dL [facility] MCH (RBC) [Entitic mass] 30.3 pg 26. 1 - 33.[address] [facility] MCHC (RBC) [Mass/Vol] 34.3 g/dL 31.9 - 36.5 g/dL [facility] MCV (RBC) [Entitic vol] 88.2 fL 79.0 - 94.[address] [facility] Comment on above: Results inconsistent with previous results Platelet mean volume (Bld) [Entitic vol] 9.4 fL 8.7 - 12.[address] [facility] Platelets (Bld) [#/Vol] 357 10*3/uL High 146 - 337 K/uL [facility] RBC (Bld) [#/Vol] 4.33 10*6/uL Low [facility] WBC (Bld) [#/Vol] 14.65 10*3/uL High 3.73 - 10 .10 K/uL [facility] MAGNESIUMon 07-24-2022 Magnesium [Mass/Vol] 1.8 mg/dL Normal 1.6-2.6 [facility] Comment on above: Performed By: #### X M #### [facility] (DEFAULT) [address] [place] [address] No Panel Informationon 07-24 Interpretation and review of laboratory results Abnormal [facility] POC Sample Type CAPBL [facility] Test performed at address of the patient encounter. [facility] Interpretation and review of laboratory results Normal [facility] Interpretation and review of laboratory results Abnormal [facility] No Panel InformationOrdered By: Denise Ceballos on 07-24-2022 Interpretation and review of laboratory results Abnormal [facility] CBC,PLATELETSon 07-23-2022 Hematocrit (Bld) [Volume fraction] 30.4 % Low 39.6-48.8 [facility] Comment on above: Performed By: #### I [place] #### [facility] (DEFAULT) [address] [place] [address] Hemoglobin (Bld) [Mass/Vol] 9.8 g/dL Low 13.4-16.8 [facility] Comment on above: Result Comment: Resu lts inconsistent with previous results Performed By: #### I [place] #### [facility] (DEFAULT) [address] [place] [address] MCV (RBC) [Entitic vol] 96.2 fL High 79.0-94.5 O [facility] [place] Comment on above: Result Comment: Resu lts inconsistent with previous results Performed By: #### I [place] #### [facility] (DEFAULT) [address] [address] Mean Cell Hgb 31.0 pg Normal 26.1-33.3 [facility] Comment on above: Performed By: #### I [place] #### [facility] (DEFAULT) [address] [place] [address] Mean Cell Hgb Conc 32.2 g/dL Normal 31.9-36.5 [facility] [place] Comment on above: Performed By: #### I [place] #### [facility] (DEFAULT) [address] [address] Platelet mean volume (Bld) [Entitic vol] 9.5 fL Normal 8.7-12.3 [facility] Comment on above: Performed By: #### I [place] #### [facility] (DEFAULT) [address] [place] [address] Platelets (Bld) [#/Vol] 162 10*3/uL Normal 146-337 [facility] Comment on above: Performed By: #### I [place] #### U [facility] (DEFAULT) [address] [place] [address] RBC (Bld) [#/Vol] 3.16 10*6/uL Low 4.38-5.83 [facility] Comment on above: Performed By: #### I [place] #### U [facility] (DEFAULT) [address] [place] [address]67 RBC Distribution 12.5 % Normal 10.9-14.3 [facility] Comment on above: Performed By: #### I [place] #### [facility] (DEFAULT) [address] [place] [address] WBC (Bld) [#/Vol] 8.05 10*3/uL Normal 3.73-10.10 [facility] Comment on above: Performed By: #### I [place] #### [facility] (DEFAULT) [address] [place] [address] CHEM 7 (LYTES,BUN,CREA,GLUC) on 07-23-2022 Anion gap [Moles/Vol] 8 mmol/L Normal 7-17 [facility] Comment on above: Performed By: #### I [place] #### [facility] (DEFAULT) [address] [place] [address] Chloride [Moles/Vol] 119 mmol/L High 98-108 [facility] Comment on above: Result Comment: Resu lts inconsistent with previous results Performed By: #### I [place] #### [facility] (DEFAULT) [address] [place] [address] CO2 [Moles/Vol] 13 mmol/L Low 21-31 [facility] Comment on above: Result Comment: Resu lts inconsistent with previous results Performed By: #### I [place] #### [facility] (DEFAULT) [address] [place] [address] Creatinine [Mass/Vol] 0.33 mg/dL Low 0.70-1.30 [facility] Comment on above: Performed By: #### I [place] #### [facility] (DEFAULT) [address] [place] [address] eGFR, CKD-EPI, Male > Normal >=60 [facility] Comment on above: Result Comment: Repo rted eGFR is based on the CKD-EPI 2020 equation using creatinine, age, and sex. Performed By: #### I [place] #### [facility] (DEFAULT) [address] [place] [address] Glucose [Mass/Vol] 93 mg/dL Normal 70-99 [facility] Comment on above: Performed By: #### I [place] #### [facility] (DEFAULT) [address] [place] [address] Osmolality [Osmolality] 288 mosm/kg Normal 278-305 [facility] Comment on above: Performed By: #### I [place] #### [facility] (DEFAULT) [address] [place] [address] Potassium [Moles/Vol] 3.3 mmol/L Low 3.5-5.0 [facility] Comment on above: Result Comment: Slig htly hemolyzed Performed By: #### I [place] #### [facility] (DEFAULT) [address] [place] [address] Sodium [Moles/Vol] 137 mmol/L Normal 135-145 [facility] [place] Comment on above: Performed By: #### I [place] #### [facility] (DEFAULT) [address] [place] [address]243 Urea nitrogen [Mass/Vol] 21 mg/dL Normal 7-25 [facility] Comment on above: Performed By: #### I [place] #### [facility] (DEFAULT) [address] [place] [address] Urea nitrogen/Creatinine [Mass ratio] 64 mg/mg Normal [facility] Comment on above: Performed By: #### I [place] #### [facility] (DEFAULT) [address] [place] [address] CT HEAD WITHOUT CONTRASTon 1 CT HEAD WITHOUT CONTRAST EXAM: CT HEAD W ITHOUT CONTRAST, 07/23/2022 12:30 PM COMPARISON: CT head dated July 19, 2022 CLINICAL INDICATIONS: 67 years Male near syncope; RELEVANT CLINICAL HISTORY: TECHNIQUE: A series of transaxial computerized tomographic images are obtained from base of skull to vertex without intravenous contrast. Axial whole-head and thin section posterior fossa slices are provided. Reformats: Sagittal and coronal. FINDINGS: Intraventricular hemorrhage is again noted, particularly in the left lateral ventricle. Compared to the prior examination the density of the splenium has significantly decreased, as is the overall volume. There is no evidence of developing hydrocephalus. There is no extracerebral collection elsewhere. No new intracranial hemorrhage is present. No loss of the stubbs-white differentiation. No mass effect or midline shift. Calvarium and skull base appear intact. Visualized sinuses show no air fluid levels. Opacification in a posterior right ethmoid air cell. Visualized orbits are unremarkable. . IMPRESSION: The known intraventricular hemorrhage has decreased in volume and density. There is no hydrocephalus. No new intracranial blood products. Normal [facility] CT Head WO contraston 2021 IMPRESSION: The known intraventricular hemorrhage has decreased in volume and density. There is no hydrocephalus. No new intracranial blood products. OLOGY EXAM: CT HEAD WITHOU T CONTRAST, 07/23/2022 12:30 PM COMPARISON: CT head dated July 19, 2022 CLINICAL INDICATIONS: 67 years Male near syncope; RELEVANT CLINICAL HISTORY: TECHNIQUE: A series of transaxial computerized tomographic images are obtained from base of skull to vertex without intravenous contrast. Axial whole-head and thin section posterior fossa slices are provided. Reformats: Sagittal and coronal. FINDINGS: Intraventricular hemorrhage is again noted, particularly in the left lateral ventricle. Compared to the prior examination the density of the splenium has significantly decreased, as is the overall volume. There is no evidence of developing hydrocephalus. There is no extracerebral collection elsewhere. No new intracranial hemorrhage is present. No loss of the stubbs-white differentiation. No mass effect or midline shift. Calvarium and skull base appear intact. Visualized sinuses show no air fluid levels. Opacification in a posterior right ethmoid air cell. Visualized orbits are unremarkable. . RADIOLOGY Scott Perry MD - 07/23/2022 EXAM: CT HEAD WITHOUT CONTRAST, 07/23/2022 12:30 PM COMPARISON: CT head dated July 19, 2022 CLINICAL INDICATIONS: 67 years Male near syncope; RELEVANT CLINICAL HISTORY: TECHNIQUE: A series of transaxial computerized tomographic images are obtained from base of skull to vertex without intravenous contrast. Axial whole-head and thin section posterior fossa slices are provided. Reformats: Sagittal and coronal. FINDINGS: Intraventricular hemorrhage is again noted, particularly in the left lateral ventricle. Compared to the prior examination the density of the splenium has significantly decreased, as is the overall volume. There is no evidence of developing hydrocephalus. There is no extracerebral collection elsewhere. No new intracranial hemorrhage is present. No loss of the stubbs-white differentiation. No mass effect or midline shift. Calvarium and skull base appear intact. Visualized sinuses show no air fluid levels. Opacification in a posterior right ethmoid air cell. Visualized orbits are unremarkable. . IMPRESSION IMPRESSION: The known intraventricular hemorrhage has decreased in volume and density. There is no hydrocephalus. No new intracranial blood products. [facility] Radiology Study observation (narrative) [facility] CT Head WO contrastOrdered B y: Scott Perry on 07-23-[address] [facility] Work Phone: Laboratory - Chemistry and C hemistry - challengeOrdered By: Rashi Pozo on 07-23-2022 Anion gap [Moles/Vol] 8 mmol/L 7 - 17 mmol/L [facility] Chloride [Moles/Vol] 119 mmol/L High 98 - 10 8 mmol/L [facility] Comment on above: Results inconsistent with previous results CO2 [Moles/Vol] 13 mmol/L Low 21 - 31 mmol/L [facility] Comment on above: Results inconsistent with previous results Creatinine [Mass/Vol] 0.33 mg/dL Low 0.70 - 1.30 mg/dL [facility] GFR/1.73 sq M.predicted CKD-EPI (S/P/Bld) [Vol rate/Area] - PINF [facility] Comment on above: Reported eGFR is bas ed on the CKD-EPI 2020 equation using creatinine, age, and sex. Glucose [Mass/Vol] 93 mg/dL 70 - 99 mg/dL [facility] Osmolality Calc [Osmolality] [address] [facility] Potassium [Moles/Vol] 3.3 mmol/L Low 3.5 - 5.0 mmol/L [facility] Comment on above: Slightly hemolyzed Sodium [Moles/Vol] 137 mmol/L 135 - 145 mmol/L [facility] Urea nitrogen [Mass/Vol] 21 mg/dL 7 - 25 mg/d L [facility] Urea nitrogen/Creatinine [Mass ratio] 64 mg/mg [facility] Laboratory - Chemistry and C hemistry - challengeon 07-23-2022 Magnesium [Mass/Vol] 1.2 mg/dL Low 1.6 - 2 .6 mg/dL [facility] Comment on above: Slightly hemolyzed Laboratory - Hematology and Cell countson 07-23-2022 Erythrocyte distribution width (RBC) [Ratio] 12.5 % 10.9 - 14.3 % [facility] Hematocrit (Bld) [Volume fraction] 30.4 % Low 39.6 - 48.8 % [facility] Hemoglobin (Bld) [Mass/Vol] 9.8 g/dL Low 13.4 - 16.8 g/dL [facility] Comment on above: Results inconsistent with previous results MCH (RBC) [Entitic mass] 31.0 pg 26. 1 - 33.[address] [facility] MCHC (RBC) [Mass/Vol] 32.2 g/dL 31.9 - 36.5 g/dL [facility] MCV (RBC) [Entitic vol] 96.2 fL High 79.0 - 94.[address] [facility] Comment on above: Results inconsistent with previous results Platelet mean volume (Bld) [Entitic vol] 9.5 fL 8.7 - 12.[address] [facility] Platelets (Bld) [#/Vol] 162 10*3/uL 146 - 337 K/uL [facility] RBC (Bld) [#/Vol] 3.16 10*6/uL Low [facility] WBC (Bld) [#/Vol] 8.05 10*3/uL 3.73 - 10. 10 K/uL [facility] MAGNESIUMon 07-23-2022 Magnesium [Mass/Vol] 1.2 mg/dL Low 1.6-2.6 [facility] Comment on above: Result Comment: Jose htwon hemolyzed Performed By: #### I [place] #### [facility] (DEFAULT) [address] [place] [address] No Panel InformationOrdered By: Rohith Gaspar on 07-23-[address] [facility] Work Phone: No Panel InformationOrdered By: Rashi Pozo on 07-23-2022 Interpretation and review of laboratory results Abnormal [facility] No Panel Informationon 07-23 Interpretation and review of laboratory results Abnormal [facility] Interpretation and review of laboratory results Abnormal [facility] CBC,PLATELETSon 07-22-2022 Hematocrit (Bld) [Volume fraction] 40.6 % Normal 39.6-48.8 [facility] Comment on above: Performed By: #### X M #### [facility] (DEFAULT) [address] [place] [address] Hemoglobin (Bld) [Mass/Vol] 13.9 g/dL Normal 13.4-16.8 [facility] Comment on above: Performed By: #### X M #### [facility] (DEFAULT) [address] [place] [address] MCV (RBC) [Entitic vol] 89.0 fL Normal 79.0-94.5 [facility] [place] Comment on above: Performed By: #### X M #### [facility] (DEFAULT) [address] [address] Mean Cell Hgb 30.5 pg Normal 26.1-33.3 [facility] Comment on above: Performed By: #### X M #### [facility] (DEFAULT) [address] [address] Mean Cell Hgb Conc 34.2 g/dL Normal 31.9-36.5 [facility] Comment on above: Performed By: #### X M #### [facility] (DEFAULT) [address] [address] Platelet mean volume (Bld) [Entitic vol] 9.8 fL Normal 8.7-12.3 [facility] Comment on above: Performed By: #### X M #### [facility] (DEFAULT) [address] [address] Platelets (Bld) [#/Vol] 322 10*3/uL Normal 146-337 [facility] Comment on above: Performed By: #### X M #### [facility] (DEFAULT) [address] [address] RBC (Bld) [#/Vol] 4.56 10*6/uL Normal 4.38-5.83 [facility] Comment on above: Performed By: #### X M #### [facility] (DEFAULT) [address] [address] RBC Distribution 12.3 % Normal 10.9-14.3 [facility] Comment on above: Performed By: #### X M #### [facility] (DEFAULT) [address] [address] WBC (Bld) [#/Vol] 10.44 10*3/uL High 3.73-10.10 [facility] Comment on above: Performed By: #### X M #### [facility] (DEFAULT) [address] [place] [address] CHEM 7 (LYTES,BUN,CREA,GLUC) on 07-22-2022 Anion gap [Moles/Vol] 12 mmol/L Normal 7-17 [facility] Comment on above: Performed By: #### X M #### [facility] (DEFAULT) [address] [place] [address] Chloride [Moles/Vol] 103 mmol/L Normal 98-108 [facility] Comment on above: Performed By: #### X M #### [facility] (DEFAULT) [address] [place] [address]157 CO2 [Moles/Vol] 21 mmol/L Normal 21-31 [facility] Comment on above: Performed By: #### X M #### [facility] (DEFAULT) [address] [place] [address]35 Creatinine [Mass/Vol] 0.59 mg/dL Low 0.70-1.30 [facility] Comment on above: Performed By: #### X M #### [facility] (DEFAULT) [address] [place] [address]758 eGFR, CKD-EPI, Male > Normal >=60 [facility] Comment on above: Result Comment: Repo rted eGFR is based on the CKD-EPI 2020 equation using creatinine, age, and sex. Performed By: #### X M #### [facility] (DEFAULT) [address] [place] [address] Glucose [Mass/Vol] 118 mg/dL High 70-99 [facility] [place] Comment on above: Performed By: #### X M #### [facility] (DEFAULT) [address] [place] [address] Osmolality [Osmolality] 284 mosm/kg Normal 278-305 [facility] Comment on above: Performed By: #### X M #### [facility] (DEFAULT) [address] [place] [address]92 Potassium [Moles/Vol] 4.1 mmol/L Normal 3.5-5.0 [facility] Comment on above: Performed By: #### X M #### [facility] (DEFAULT) [address] [place] [address] Sodium [Moles/Vol] 132 mmol/L Low 135-145 [facility] Comment on above: Performed By: #### X M #### [facility] (DEFAULT) [address] [place] [address] Urea nitrogen [Mass/Vol] 27 mg/dL High 7-25 [facility] Comment on above: Performed By: #### X M #### [facility] (DEFAULT) [address] [place] [address] 98652 Urea nitrogen/Creatinine [Mass ratio] 46 mg/mg Normal [facility] Comment on above: Performed By: #### X M #### [facility] (DEFAULT) [address] [place] [address] Laboratory - Chemistry and C hemistry - challengeon 07-22-2022 Anion gap [Moles/Vol] 12 mmol/L 7 - 17 mmol/L [facility] Chloride [Moles/Vol] 103 mmol/L 98 - 10 8 mmol/L [facility] CO2 [Moles/Vol] 21 mmol/L 21 - 31 mmol/L [facility] Creatinine [Mass/Vol] 0.59 mg/dL Low 0.70 - 1.30 mg/dL [facility] GFR/1.73 sq M.predicted CKD-EPI (S/P/Bld) [Vol rate/Area] - [facility] Comment on above: Reported eGFR is bas ed on the CKD-EPI 2020 equation using creatinine, age, and sex. Glucose [Mass/Vol] 118 mg/dL High 70 - 99 mg/dL [facility] Magnesium [Mass/Vol] 1.8 mg/dL 1.6 - 2 .6 mg/dL [facility] Osmolality Calc [Osmolality] [address] [facility] Potassium [Moles/Vol] 4.1 mmol/L 3.5 - 5.0 mmol/L [facility] Sodium [Moles/Vol] 132 mmol/L Low 135 - 145 mmol/L [facility] Urea nitrogen [Mass/Vol] 27 mg/dL High 7 - 25 mg/d L [facility] Urea nitrogen/Creatinine [Mass ratio] 46 mg/mg [facility] Laboratory - Hematology and Cell countson 07-22-2022 Erythrocyte distribution width (RBC) [Ratio] 12.3 % 10.9 - 14.3 % [facility] Hematocrit (Bld) [Volume fraction] 40.6 % 39.6 - 48.8 % [facility] Hemoglobin (Bld) [Mass/Vol] 13.9 g/dL 13.4 - 16.8 g/dL [facility] MCH (RBC) [Entitic mass] 30.5 pg 26. 1 - 33.[address] [facility] MCHC (RBC) [Mass/Vol] 34.2 g/dL 31.9 - 36.5 g/dL [facility] MCV (RBC) [Entitic vol] 89.0 fL 79.0 - 94.[address] [facility] Platelet mean volume (Bld) [Entitic vol] 9.8 fL 8.7 - 12.[address] [facility] Platelets (Bld) [#/Vol] 322 10*3/uL 146 - 337 K/uL [facility] RBC (Bld) [#/Vol] 4.56 10*6/uL [facility] WBC (Bld) [#/Vol] 10.44 10*3/uL High 3.73 - 10 .10 K/uL [facility] MAGNESIUMon 07-22-2022 Magnesium [Mass/Vol] 1.8 mg/dL Normal 1.6-2.6 [facility] Comment on above: Performed By: #### X M #### [facility] (DEFAULT) [address] [place] [address] No Panel Informationon 07-22 Interpretation and review of laboratory results Abnormal [facility] Interpretation and review of laboratory results Normal [facility] Interpretation and review of laboratory results Abnormal [facility] CBC,PLATELETSon 07-21-2022 Hematocrit (Bld) [Volume fraction] 38.5 % Low 39.6-48.8 [facility] Comment on above: Performed By: #### U RIN #### [facility] (DEFAULT) [address] [place] [address] Hemoglobin (Bld) [Mass/Vol] 13.3 g/dL Low 13.4-16.8 [facility] Comment on above: Performed By: #### U RIN #### [facility] (DEFAULT) [address] [place] [address]34 MCV (RBC) [Entitic vol] 90.4 fL Normal 79.0-94.5 [place] Comment on above: Performed By: #### U RIN #### [facility] (DEFAULT) [address] [place] [address]76 Mean Cell Hgb 31.2 pg Normal 26.1-33.3 [facility] Comment on above: Performed By: #### U RIN #### [facility] (DEFAULT) [address] [place] [address] 76673 Mean Cell Hgb Conc 34.5 g/dL Normal 31.9-36.5 [facility] Comment on above: Performed By: #### U RIN #### [facility] (DEFAULT) [address] [place], [place] [address] [id number] Platelet mean volume (Bld) [Entitic vol] 9.9 fL Normal 8.7-12.3 [facility] Comment on above: Performed By: #### U RIN #### [facility] (DEFAULT) [address] [place] [address] 19510 Platelets (Bld) [#/Vol] 325 10*3/uL Normal 146-337 [facility] Comment on above: Performed By: #### U RIN #### [facility] (DEFAULT) [address] [place] [address] 19078 RBC (Bld) [#/Vol] 4.26 10*6/uL Low 4.38-5.83 [facility] Comment on above: Performed By: #### U RIN #### [facility] (DEFAULT) [address] [place] [address] 42909 RBC Distribution 12.5 % Normal 10.9-14.3 [facility] Comment on above: Performed By: #### U RIN #### [facility] (DEFAULT) [address] [place] [address] 81712 WBC (Bld) [#/Vol] 11.86 10*3/uL High 3.73-10.10 [facility] Comment on above: Performed By: #### U RIN #### [facility] (DEFAULT) [address] [place] [address] 05092 CHEM 7 (LYTES,BUN,CREA,GLUC) on 07-21-2022 Anion gap [Moles/Vol] 11 mmol/L Normal 7-17 [facility] Comment on above: Performed By: #### L [email or web address] #### U [facility] (DEFAULT) [address] [place] [address] 53918 Chloride [Moles/Vol] 100 mmol/L Normal 98-108 [facility] Comment on above: Performed By: #### L [id number] #### U [facility] (DEFAULT) [address] [place] [address] 80685 CO2 [Moles/Vol] 25 mmol/L Normal 21-31 [facility] Comment on above: Performed By: #### L [id number] #### U [facility] (DEFAULT) [address] [place] [address] 23779 Creatinine [Mass/Vol] 0.67 mg/dL Low 0.70-1.30 [facility] Comment on above: Performed By: #### L [email or web address] #### U [facility] (DEFAULT) [address] [place] [address] 30048 eGFR, CKD-EPI, Male > Normal >=60 [facility] Comment on above: Result Comment: Repo rted eGFR is based on the CKD-EPI 2020 equation using creatinine, age, and sex. Performed By: #### L ABSARS1 #### U [facility] (DEFAULT) [address] [place] [address] 06369 Glucose [Mass/Vol] 115 mg/dL High 70-99 [facility] Comment on above: Performed By: #### L [id number] #### U [facility] (DEFAULT) [address] [place] [address] 17452 Osmolality [Osmolality] 285 mosm/kg Normal 278-305 [facility] Comment on above: Performed By: #### L ABSARS1 #### [facility] (DEFAULT) [address] [place] [address] 92403 Potassium [Moles/Vol] 4.1 mmol/L Normal 3.5-5.0 [facility] Comment on above: Performed By: #### L ABSARS1 #### [facility] (DEFAULT) [address] [place] [address] 76002 Sodium [Moles/Vol] 132 mmol/L Low 135-145 [facility] Comment on above: Performed By: #### L [id number] #### U [facility] (DEFAULT) [address] [place] [address] 26995 Urea nitrogen [Mass/Vol] 29 mg/dL High 7-25 [facility] Comment on above: Performed By: #### L [id number] #### U [facility] (DEFAULT) [address] [place] [address] 35768 Urea nitrogen/Creatinine [Mass ratio] 43 mg/mg Normal [facility] Comment on above: Performed By: #### L [id number] #### U [facility] (DEFAULT) [address] [place] [address] Laboratory - Chemistry and C hemistry - challengeon 07-21-2022 Anion gap [Moles/Vol] 11 mmol/L 7 - 17 mmol/L [facility] Chloride [Moles/Vol] 100 mmol/L 98 - 10 8 mmol/L [facility] CO2 [Moles/Vol] 25 mmol/L 21 - 31 mmol/L [facility] Creatinine [Mass/Vol] 0.67 mg/dL Low 0.70 - 1.30 mg/dL [facility] GFR/1.73 sq M.predicted CKD-EPI (S/P/Bld) [Vol rate/Area] - PINF [facility] Comment on above: Reported eGFR is bas ed on the CKD-EPI 2020 equation using creatinine, age, and sex. Glucose [Mass/Vol] 115 mg/dL High 70 - 99 mg/dL [facility] Magnesium [Mass/Vol] 1.9 mg/dL 1.6 - 2 .6 mg/dL [facility] Osmolality Calc [Osmolality] [address] [facility] Potassium [Moles/Vol] 4.1 mmol/L 3.5 - 5.0 mmol/L [facility] Sodium [Moles/Vol] 132 mmol/L Low 135 - 145 mmol/L [facility] Urea nitrogen [Mass/Vol] 29 mg/dL High 7 - 25 mg/d L [facility] Urea nitrogen/Creatinine [Mass ratio] 43 mg/mg [facility] Laboratory - Hematology and Cell countson 07-21-2022 Erythrocyte distribution width (RBC) [Ratio] 12.5 % 10.9 - 14.3 % [facility] Hematocrit (Bld) [Volume fraction] 38.5 % Low 39.6 - 48.8 % [facility] Hemoglobin (Bld) [Mass/Vol] 13.3 g/dL Low 13.4 - 16.8 g/dL [facility] MCH (RBC) [Entitic mass] 31.2 pg 26. 1 - 33.[address] [facility] MCHC (RBC) [Mass/Vol] 34.5 g/dL 31.9 - 36.5 g/dL [facility] MCV (RBC) [Entitic vol] 90.4 fL 79.0 - 94.[address] [facility] Platelet mean volume (Bld) [Entitic vol] 9.9 fL 8.7 - 12.[address] [facility] Platelets (Bld) [#/Vol] 325 10*3/uL 146 - 337 K/uL [facility] RBC (Bld) [#/Vol] 4.26 10*6/uL Low [facility] WBC (Bld) [#/Vol] 11.86 10*3/uL High 3.73 - 10 .10 K/uL [facility] MAGNESIUMon 07-21-2022 Magnesium [Mass/Vol] 1.9 mg/dL Normal 1.6-2.6 [facility] Comment on above: Performed By: #### L [email or web address] #### [facility] (DEFAULT) [address] [address] No Panel Informationon 07-21 Interpretation and review of laboratory results Abnormal [facility] Interpretation and review of laboratory results Normal [facility] Interpretation and review of laboratory results Abnormal [facility] CBC,PLATELETSon 07-20-2022 Hematocrit (Bld) [Volume fraction] 40.6 % Normal 39.6-48.8 [facility] Comment on above: Performed By: #### X M #### [facility] (DEFAULT) [address] [place] [address] 21732 Hemoglobin (Bld) [Mass/Vol] 13.8 g/dL Normal 13.4-16.8 [facility] Comment on above: Performed By: #### X M #### [facility] (DEFAULT) [address] [place] [address] 65548 MCV (RBC) [Entitic vol] 90.0 fL Normal 79.0-94.5 O [facility] [place] Comment on above: Performed By: #### X M #### [facility] (DEFAULT) [address] [place] [address] 48474 Mean Cell Hgb 30.6 pg Normal 26.1-33.3 [facility] Comment on above: Performed By: #### X M #### U [facility] (DEFAULT) [address] [place] [address] 23469 Mean Cell Hgb Conc 34.0 g/dL Normal 31.9-36.5 [facility] Comment on above: Performed By: #### X M #### U [facility] (DEFAULT) [address] [place] [address] 50005 Platelet mean volume (Bld) [Entitic vol] 10.1 fL Normal 8.7-12.3 [facility] Comment on above: Performed By: #### X M #### [facility] (DEFAULT) [address] [place] [address] 60122 Platelets (Bld) [#/Vol] 278 10*3/uL Normal 146-337 [facility] Comment on above: Performed By: #### X M #### [facility] (DEFAULT) [address] [place] [address] 96651 RBC (Bld) [#/Vol] 4.51 10*6/uL Normal 4.38-5.83 [facility] Comment on above: Performed By: #### X M #### [facility] (DEFAULT) [address] [place] [address] 00106 RBC Distribution 12.7 % Normal 10.9-14.3 [facility] Comment on above: Performed By: #### X M #### [facility] (DEFAULT) [address] [place] [address] 17955 WBC (Bld) [#/Vol] 12.16 10*3/uL High 3.73-10.10 [facility] Comment on above: Performed By: #### X M #### [facility] (DEFAULT) [address] [place] [address] 48535 CHEM 7 (LYTES,BUN,CREA,GLUC) on 07-20-2022 Anion gap [Moles/Vol] 13 mmol/L Normal 7-17 [facility] Comment on above: Performed By: #### L [id number] #### U [facility] (DEFAULT) [address] [place] [address] 11913 Chloride [Moles/Vol] 100 mmol/L Normal 98-108 [facility] Comment on above: Performed By: #### L [id number] #### U [facility] (DEFAULT) [address] [place] [address] 60395 CO2 [Moles/Vol] 23 mmol/L Normal 21-31 [facility] Comment on above: Performed By: #### L [id number] #### U [facility] (DEFAULT) [address] [place] [address] 30514 Creatinine [Mass/Vol] 0.67 mg/dL Low 0.70-1.30 [facility] Comment on above: Performed By: #### L [id number] #### U [facility] (DEFAULT) [address] [place] [address] 48440 eGFR, CKD-EPI, Male > Normal >=60 [facility] Comment on above: Result Comment: Repo rted eGFR is based on the CKD-EPI 2020 equation using creatinine, age, and sex. Performed By: #### L [email or web address] #### U [facility] (DEFAULT) [address] [place] [address] 15397 Glucose [Mass/Vol] 122 mg/dL High 70-99 [facility] Comment on above: Performed By: #### L [id number] #### U [facility] (DEFAULT) [address] [place] [address] 12087 Osmolality [Osmolality] 284 mosm/kg Normal 278-305 [facility] Comment on above: Performed By: #### L [id number] #### U [facility] (DEFAULT) [address] [place] [address] 38405 Potassium [Moles/Vol] 4.3 mmol/L Normal 3.5-5.0 [facility] Comment on above: Performed By: #### L [id number] #### [facility] (DEFAULT) [address] [address] Sodium [Moles/Vol] 132 mmol/L Low 135-145 [facility] Comment on above: Performed By: #### L [id number] #### [facility] (DEFAULT) [address] [address] Urea nitrogen [Mass/Vol] 23 mg/dL Normal 7-25 [facility] Comment on above: Performed By: #### L [id number] #### [facility] (DEFAULT) [address] [address] Urea nitrogen/Creatinine [Mass ratio] 34 mg/mg Normal [facility] Comment on above: Performed By: #### L [id number] #### [facility] (DEFAULT) [address] [address] Laboratory - Chemistry and C hemistry - challengeon 07-20-2022 Anion gap [Moles/Vol] 13 mmol/L 7 - 17 mmol/L [facility] Chloride [Moles/Vol] 100 mmol/L 98 - 10 8 mmol/L [facility] CO2 [Moles/Vol] 23 mmol/L 21 - 31 mmol/L [facility] Creatinine [Mass/Vol] 0.67 mg/dL Low 0.70 - 1.30 mg/dL [facility] GFR/1.73 sq M.predicted CKD-EPI (S/P/Bld) [Vol rate/Area] - PINF [facility] Comment on above: Reported eGFR is bas ed on the CKD-EPI 2020 equation using creatinine, age, and sex. Glucose [Mass/Vol] 122 mg/dL High 70 - 99 mg/dL [facility] Osmolality Calc [Osmolality] [address] [facility] Potassium [Moles/Vol] 4.3 mmol/L 3.5 - 5.0 mmol/L [facility] Sodium [Moles/Vol] 132 mmol/L Low 135 - 145 mmol/L [facility] Urea nitrogen [Mass/Vol] 23 mg/dL 7 - 25 mg/d L [facility] Urea nitrogen/Creatinine [Mass ratio] 34 mg/mg [facility] Magnesium [Mass/Vol] 2.1 mg/dL 1.6 - 2 .6 mg/dL [facility] Laboratory - Hematology and Cell countson 07-20-2022 Erythrocyte distribution width (RBC) [Ratio] 12.7 % 10.9 - 14.3 % [facility] Hematocrit (Bld) [Volume fraction] 40.6 % 39.6 - 48.8 % [facility] Hemoglobin (Bld) [Mass/Vol] 13.8 g/dL 13.4 - 16.8 g/dL [facility] MCH (RBC) [Entitic mass] 30.6 pg 26. 1 - 33.[address] [facility] MCHC (RBC) [Mass/Vol] 34.0 g/dL 31.9 - 36.5 g/dL [facility] MCV (RBC) [Entitic vol] 90.0 fL 79.0 - 94.[address] [facility] Platelet mean volume (Bld) [Entitic vol] 10.1 fL 8.7 - 12.[address] [facility] Platelets (Bld) [#/Vol] 278 10*3/uL 146 - 337 K/uL [facility] RBC (Bld) [#/Vol] 4.51 10*6/uL [facility] WBC (Bld) [#/Vol] 12.16 10*3/uL High 3.73 - 10 .10 K/uL [facility] MAGNESIUMon 07-20-2022 Magnesium [Mass/Vol] 2.1 mg/dL Normal 1.6-2.6 [facility] Comment on above: Performed By: #### L [email or web address] #### [facility] (DEFAULT) [address] [place] [address] No Panel Informationon 07-20 Interpretation and review of laboratory results Abnormal [facility] Interpretation and review of laboratory results Normal [facility] Interpretation and review of laboratory results Abnormal [facility] BLOOD CULTUREon 07-19-2022 Bacteria identified Cx Nom (Unsp spec) NO GROWTH DAY 5 OF 5 Normal [facility] Comment on above: Order Comment: 2 Bot tles (1 Set - consists of 1 Aerobic bottle and 1 Anaerobic bottle) -1st Peripheral DrawFor syringe method draw:If able to obtain adequate sample (20 ml) inoculate anaerobic bottle firstIf inadequate sample obtained (less than 20 ml) inoculate aerobic bottle firstFor vacutainer method draw: Fill aerobic bottle first, then anaerobicResults may be compromised due to volume of BACT\ALERT bottle below 8mLs. The optimal blood volume is 8-10 mls per aerobic/anaerobic blood culture bottle Performed By: #### X M #### [facility] (DEFAULT) [address] [place] [address] Order Comment: 2 Bot tles (1 Set - consists of 1 Aerobic bottle and 1 Anaerobic bottle) -1st Peripheral DrawFor syringe method draw:If able to obtain adequate sample (20 ml) inoculate anaerobic bottle firstIf inadequate sample obtained (less than 20 ml) inoculate aerobic bottle firstFor vacutainer method draw: Fill aerobic bottle first, then anaerobic CBC,PLATELETSon 07-19-2022 Hematocrit (Bld) [Volume fraction] 36.9 % Low 39.6-48.8 [facility] Comment on above: Performed By: #### H [facility] #### [facility] (DEFAULT) [address] [address] Hemoglobin (Bld) [Mass/Vol] 12.6 g/dL Low 13.4-16.8 [facility] Comment on above: Performed By: #### H [facility] #### [facility] (DEFAULT) [address] [address] MCV (RBC) [Entitic vol] 89.1 fL Normal 79.0-94.5 O [facility] Comment on above: Performed By: #### [facility] #### U [facility] (DEFAULT) [address] [address] Mean Cell Hgb 30.4 pg Normal 26.1-33.3 [facility] Comment on above: Performed By: #### H EMOGC #### U [facility] (DEFAULT) [address] [address] Mean Cell Hgb Conc 34.1 g/dL Normal 31.9-36.5 [facility] Comment on above: Performed By: #### H EMOGC #### U [facility] (DEFAULT) [address] [address] Platelet mean volume (Bld) [Entitic vol] 9.8 fL Normal 8.7-12.3 [facility] Comment on above: Performed By: #### H EMOGC #### [facility] (DEFAULT) [address] [address] Platelets (Bld) [#/Vol] 237 10*3/uL Normal 146-337 [facility] Comment on above: Performed By: #### H EMOGC #### [facility] (DEFAULT) [address] [address] RBC (Bld) [#/Vol] 4.14 10*6/uL Low 4.38-5.83 [facility] Comment on above: Performed By: #### H EMOGC #### U [facility] (DEFAULT) [address] [address] RBC Distribution 12.8 % Normal 10.9-14.3 [facility] Comment on above: Performed By: #### H EMOGC #### U [facility] (DEFAULT) [address] [address] WBC (Bld) [#/Vol] 11.18 10*3/uL High 3.73-10.10 [facility] Comment on above: Performed By: #### H EMOGC #### U [facility] (DEFAULT) [address] [place] [address] 64073 CHEM 7 (LYTES,BUN,CREA,GLUC) on 07-19-2022 Anion gap [Moles/Vol] 12 mmol/L Normal 7-17 [facility] Comment on above: Performed By: #### I [place] #### [facility] (DEFAULT) [address] [place] [address] 76887 Chloride [Moles/Vol] 103 mmol/L Normal 98-108 [facility] Comment on above: Performed By: #### I [place] #### [facility] (DEFAULT) [address] [place] [address] 15387 CO2 [Moles/Vol] 22 mmol/L Normal 21-31 [facility] Comment on above: Performed By: #### I [place] #### [facility] (DEFAULT) [address] [place] [address] 37880 Creatinine [Mass/Vol] 0.59 mg/dL Low 0.70-1.30 [facility] Comment on above: Performed By: #### I [place] #### U [facility] (DEFAULT) [address] [place] [address] 46998 eGFR, CKD-EPI, Male > Normal >=60 [facility] Comment on above: Result Comment: Repo rted eGFR is based on the CKD-EPI 2020 equation using creatinine, age, and sex. Performed By: #### I [place] #### U [facility] (DEFAULT) [address] [place] [address] 71261 Glucose [Mass/Vol] 128 mg/dL High 70-99 [facility] Comment on above: Performed By: #### I [place] #### [facility] (DEFAULT) [address] [place] [address] 14893 Osmolality [Osmolality] 283 mosm/kg Normal 278-305 [facility] Comment on above: Performed By: #### I [place] #### [facility] (DEFAULT) [address] [place] [address] 41163 Potassium [Moles/Vol] 3.9 mmol/L Normal 3.5-5.0 [facility] Comment on above: Performed By: #### I [place] #### U [facility] (DEFAULT) [address] [place] [address] Sodium [Moles/Vol] 133 mmol/L Low 135-145 [facility] Comment on above: Performed By: #### I [place] #### U [facility] (DEFAULT) [address] [place] [address] Urea nitrogen [Mass/Vol] 18 mg/dL Normal 7-25 [facility] Comment on above: Performed By: #### I [place] #### U [facility] (DEFAULT) [address] [place] [address] 53679 Urea nitrogen/Creatinine [Mass ratio] 31 mg/mg Normal [facility] Comment on above: Performed By: #### I [place] #### [facility] (DEFAULT) [address] [place] [address] HEAD WITHOUT CONTRASTon 1 09-19-2021 CT HEAD WITHOUT CONTRAST EXAM: CT HEAD W ITHOUT CONTRAST, 07/19/2022 2:59 PM COMPARISON: Head CT July 18, 2022 CLINICAL INDICATIONS: 67 years Male eval for any changes, AMS; RELEVANT CLINICAL HISTORY: TECHNIQUE: A series of transaxial computerized tomographic images are obtained from base of skull to vertex without intravenous contrast. Axial whole-head and thin section posterior fossa slices are provided. Reformats: Sagittal and coronal. FINDINGS: Intraventricular hemorrhage is again noted, greater on the left with layering hemorrhage in the left greater than right occipital horns. The degree of intraventricular hemorrhage is unchanged. The ventricles are unchanged in caliber to prior exam. There is no extracerebral collection elsewhere. Calvarium and skull base appear intact. Visualized sinuses show no air fluid levels. Opacification in a posterior right ethmoid air cell. Visualized orbits are unremarkable. IMPRESSION: Stable volume of intraventricular hemorrhage and ventricular size since July 18, 2022. Normal [facility] CT Head WO contraston 2021 IMPRESSION: Stable volume of intraventricular hemorrhage and ventricular size since July 18, 2022. OLOGY EXAM: CT HEAD WITHOU T CONTRAST, 07/19/2022 2:59 PM COMPARISON: Head CT July 18, 2022 CLINICAL INDICATIONS: 67 years Male eval for any changes, AMS; RELEVANT CLINICAL HISTORY: TECHNIQUE: A series of transaxial computerized tomographic images are obtained from base of skull to vertex without intravenous contrast. Axial whole-head and thin section posterior fossa slices are provided. Reformats: Sagittal and coronal. FINDINGS: Intraventricular hemorrhage is again noted, greater on the left with layering hemorrhage in the left greater than right occipital horns. The degree of intraventricular hemorrhage is unchanged. The ventricles are unchanged in caliber to prior exam. There is no extracerebral collection elsewhere. Calvarium and skull base appear intact. Visualized sinuses show no air fluid levels. Opacification in a posterior right ethmoid air cell. Visualized orbits are unremarkable. RADIOLOGY Rehan Doyle M D - 07/19/2022 EXAM: CT HEAD WITHOUT CONTRAST, 07/19/2022 2:59 PM COMPARISON: Head CT July 18, 2022 CLINICAL INDICATIONS: 67 years Male eval for any changes, AMS; RELEVANT CLINICAL HISTORY: TECHNIQUE: A series of transaxial computerized tomographic images are obtained from base of skull to vertex without intravenous contrast. Axial whole-head and thin section posterior fossa slices are provided. Reformats: Sagittal and coronal. FINDINGS: Intraventricular hemorrhage is again noted, greater on the left with layering hemorrhage in the left greater than right occipital horns. The degree of intraventricular hemorrhage is unchanged. The ventricles are unchanged in caliber to prior exam. There is no extracerebral collection elsewhere. Calvarium and skull base appear intact. Visualized sinuses show no air fluid levels. Opacification in a posterior right ethmoid air cell. Visualized orbits are unremarkable. IMPRESSION IMPRESSION: Stable volume of intraventricular hemorrhage and ventricular size since July 18, 2022. [facility] Radiology Study observation (narrative) [facility] IONIZED CALCIUM, WHOLE BLOOD on 07-19-2022 ICA 4.43 mg/dL Low 4.60-5.30 [facility] Comment on above: Performed By: #### H [facility] #### [facility] (DEFAULT) [address] [place] [address] Laboratory - Chemistry and C hemistry - challengeon 07-19-2022 Anion gap [Moles/Vol] 12 mmol/L 7 - 17 mmol/L [facility] Chloride [Moles/Vol] 103 mmol/L 98 - 10 8 mmol/L [facility] CO2 [Moles/Vol] 22 mmol/L 21 - 31 mmol/L [facility] Creatinine [Mass/Vol] 0.59 mg/dL Low 0.70 - 1.30 mg/dL [facility] GFR/1.73 sq M.predicted CKD-EPI (S/P/Bld) [Vol rate/Area] - PINF [facility] Comment on above: Reported eGFR is bas ed on the CKD-EPI 2020 equation using creatinine, age, and sex. Glucose [Mass/Vol] 128 mg/dL High 70 - 99 mg/dL [facility] Magnesium [Mass/Vol] 1.8 mg/dL 1.6 - 2 .6 mg/dL [facility] Osmolality Calc [Osmolality] [address] [facility] Phosphate [Mass/Vol] 3.3 mg/dL 2.2 - 4 .6 mg/dL [facility] Potassium [Moles/Vol] 3.9 mmol/L 3.5 - 5.0 mmol/L [facility] Sodium [Moles/Vol] 133 mmol/L Low 135 - 145 mmol/L [facility] Urea nitrogen [Mass/Vol] 18 mg/dL 7 - 25 mg/d L [facility] Urea nitrogen/Creatinine [Mass ratio] 31 mg/mg [facility] Laboratory - Chemistry and C hemistry - challengeOrdered By: Tiago Oscar on 07-19-2022 Calcium.ionized (Bld) [Moles/Vol] 4.43 mg/dL Low 4.60 - 5.30 mg/dL [facility] Laboratory - Hematology and Cell countson 07-19-2022 Erythrocyte distribution width (RBC) [Ratio] 12.8 % 10.9 - 14.3 % [facility] Hematocrit (Bld) [Volume fraction] 36.9 % Low 39.6 - 48.8 % [facility] Hemoglobin (Bld) [Mass/Vol] 12.6 g/dL Low 13.4 - 16.8 g/dL [facility] MCH (RBC) [Entitic mass] 30.4 pg 26. 1 - 33.[address] [facility] MCHC (RBC) [Mass/Vol] 34.1 g/dL 31.9 - 36.5 g/dL [facility] MCV (RBC) [Entitic vol] 89.1 fL 79.0 - 94.[address] [facility] Platelet mean volume (Bld) [Entitic vol] 9.8 fL 8.7 - 12.[address] [facility] Platelets (Bld) [#/Vol] 237 10*3/uL 146 - 337 K/uL [facility] RBC (Bld) [#/Vol] 4.14 10*6/uL Low [facility] WBC (Bld) [#/Vol] 11.18 10*3/uL High 3.73 - 10 .10 K/uL [facility] Laboratory - Microbiology an d Antimicrobial susceptibilityOrdered By: Rosa M Mehta on 07-19-2022 Bacteria identified Cx Nom (Unsp spec) No Growth [facility] MAGNESIUMon 07-19-2022 Magnesium [Mass/Vol] 1.8 mg/dL Normal 1.6-2.6 [facility] Comment on above: Performed By: #### I CA #### [facility] (DEFAULT) [address] [place] [address] MRI BRAIN WITHOUT CONTRASTon 07-19-2022 MRI BRAIN WITHOUT CONTRAST EXAM: MRI BRAIN WITHOUT CONTRAST, 07/19/2022 18:00 PM COMPARISON: Multiple prior examinations including CT head July 19, 2022 CLINICAL INDICATIONS: 67 years Male IVH of unknown cause; TECHNIQUE: Localizer sagittal T1 and axial FLAIR images of the brain were obtained. Study was performed at 1.5 Yoon. FINDINGS/IMPRESSION: Prematurely terminated examination with only localizer, sagittal T1 and axial FLAIR images. There is stable volume intraventricular hemorrhage more pronounced in the left lateral ventricle with layering blood products within the occipital horns. Stable size of ventricles. There is sulcal FLAIR hyperintensity throughout the cerebral sulci which may relate to subarachnoid hemorrhage or artifactual related to hyperoxygenation therapy. Normal [facility] No Panel InformationOrdered By: Unassigned Pacs on 07-19-[address] [facility] Work Phone: No Panel InformationOrdered By: Rosa M Mehta on 07-19-[address] [facility] No Panel Informationon 07-19 Interpretation and review of laboratory results Abnormal [facility] Interpretation and review of laboratory results Normal [facility] Interpretation and review of laboratory results Abnormal [facility] No Panel InformationOrdered By: Tiago Oscar on 07-19-2022 Interpretation and review of laboratory results Abnormal [facility] PHOSPHATE, INORGANICon 07-19 Phosphorous 3.3 mg/dL Normal 2.2-4.6 [facility] Comment on above: Performed By: #### I CA #### [facility] (DEFAULT) [address] [place] [address] Portable XR Chest Viewson IMPRESSION: Minimal basilar volume loss; otherwise clear lungs. OLOGY EXAM: XR CHEST PORTABLE, 07/19/2022 14:16 PM CLINICAL INDICATIONS: evaluate for pneumonia RELEVANT CLINICAL HISTORY: Please wet read; COMPARISON: No prior studies available for comparison. FINDINGS: Minimal basilar volume loss, but otherwise clear lungs. Normal heart size. No pulmonary edema. Degenerative changes in the thoracic spine. RADIOLOGY Ángel Mcnair MD, PhD - 07/19/2022 EXAM: XR CHEST PORTABLE, 07/19/2022 14:16 PM CLINICAL INDICATIONS: evaluate for pneumonia RELEVANT CLINICAL HISTORY: Please wet read; COMPARISON: No prior studies available for comparison. FINDINGS: Minimal basilar volume loss, but otherwise clear lungs. Normal heart size. No pulmonary edema. Degenerative changes in the thoracic spine. IMPRESSION IMPRESSION: Minimal basilar volume loss; otherwise clear lungs. [facility] Radiology Study observation (narrative) [facility] Portable XR Chest ViewsOrder ed By: Ángel Mcnair on 07-19-[address] [facility] Work Phone: XR CHEST PORTABLEon 07-19-20 XR CHEST PORTABLE EXAM: XR CHEST PORTABLE, 07/19/2022 14:16 PM CLINICAL INDICATIONS: evaluate for pneumonia RELEVANT CLINICAL HISTORY: Please wet read; COMPARISON: No prior studies available for comparison. FINDINGS: Minimal basilar volume loss, but otherwise clear lungs. Normal heart size. No pulmonary edema. Degenerative changes in the thoracic spine. IMPRESSION: Minimal basilar volume loss; otherwise clear lungs. Normal [facility] CBC,PLATELETSon 07-18-2022 Hematocrit (Bld) [Volume fraction] 37.1 % Low 39.6-48.8 [facility] Comment on above: Performed By: #### [facility] #### [facility] (DEFAULT) [address] [address] Hemoglobin (Bld) [Mass/Vol] 12.8 g/dL Low 13.4-16.8 [facility] Comment on above: Performed By: #### [facility] #### [facility] (DEFAULT) [address] [address] MCV (RBC) [Entitic vol] 91.2 fL Normal 79.0-94.5 [facility] Comment on above: Performed By: #### [facility] #### [facility] (DEFAULT) [address] [place] [address] Mean Cell Hgb 31.4 pg Normal 26.1-33.3 [facility] Comment on above: Performed By: #### H EMOGC #### [facility] (DEFAULT) [address] [place] [address] Mean Cell Hgb Conc 34.5 g/dL Normal 31.9-36.5 [facility] Comment on above: Performed By: #### H EMOGC #### U [facility] (DEFAULT) [address] [place] [address] Platelet mean volume (Bld) [Entitic vol] 10.2 fL Normal 8.7-12.3 [facility] Comment on above: Performed By: #### H EMOGC #### [facility] (DEFAULT) [address] [place] [address] Platelets (Bld) [#/Vol] 234 10*3/uL Normal 146-337 [facility] Comment on above: Performed By: #### H EMOGC #### [facility] (DEFAULT) [address] [place] [address] RBC (Bld) [#/Vol] 4.07 10*6/uL Low 4.38-5.83 [facility] Comment on above: Performed By: #### H EMOGC #### [facility] (DEFAULT) [address] [place] [address] RBC Distribution 13.0 % Normal 10.9-14.3 [facility] Comment on above: Performed By: #### H EMOGC #### [facility] (DEFAULT) [address] [place] [address] WBC (Bld) [#/Vol] 12.03 10*3/uL High 3.73-10.10 [facility] Comment on above: Performed By: #### H EMOGC #### [facility] (DEFAULT) [address] [place] [address] CHEM 7 (LYTES,BUN,CREA,GLUC) on 07-18-2022 Anion gap [Moles/Vol] 11 mmol/L Normal 7-17 [facility] Comment on above: Performed By: #### X M #### U [facility] (DEFAULT) [address] [place] [address] Chloride [Moles/Vol] 108 mmol/L Normal 98-108 [facility] Comment on above: Performed By: #### X M #### [facility] (DEFAULT) [address] [place] [address] CO2 [Moles/Vol] 23 mmol/L Normal 21-31 [facility] Comment on above: Performed By: #### X M #### [facility] (DEFAULT) [address] [place] [address] Creatinine [Mass/Vol] 0.66 mg/dL Low 0.70-1.30 [facility] Comment on above: Performed By: #### X M #### [facility] (DEFAULT) [address] [place] [address] eGFR, CKD-EPI, Male > Normal >=60 [facility] Comment on above: Result Comment: Repo rted eGFR is based on the CKD-EPI 2020 equation using creatinine, age, and sex. Performed By: #### X M #### [facility] (DEFAULT) [address] [place] [address] Glucose [Mass/Vol] 130 mg/dL High 70-99 [facility] Comment on above: Performed By: #### X M #### [facility] (DEFAULT) [address] [place] [address] Osmolality [Osmolality] 293 mosm/kg Normal 278-305 [facility] Comment on above: Performed By: #### X M #### [facility] (DEFAULT) [address] [place] [address] Potassium [Moles/Vol] 3.9 mmol/L Normal 3.5-5.0 [facility] Comment on above: Performed By: #### X M #### [facility] (DEFAULT) [address] [place] [address] Sodium [Moles/Vol] 138 mmol/L Normal 135-145 [facility] Comment on above: Performed By: #### X M #### [facility] (DEFAULT) [address] [place] [address] Urea nitrogen [Mass/Vol] 18 mg/dL Normal 7-25 [facility] Comment on above: Performed By: #### X M #### [facility] (DEFAULT) [address] [place] [address] Urea nitrogen/Creatinine [Mass ratio] 27 mg/mg Normal [facility] Comment on above: Performed By: #### X M #### [facility] (DEFAULT) [address] [place] [address] HEAD WITHOUT CONTRASTon 1 09-18-2021 CT HEAD WITHOUT CONTRAST EXAM: CT HEAD W ITHOUT CONTRAST, 07/18/2022 6:39 PM COMPARISON: CT head on July 17, 2022 CLINICAL INDICATIONS: 67 years Male R/o sah; TECHNIQUE: A series of transaxial computerized tomographic images are obtained from base of skull to vertex without intravenous contrast. Axial whole-head and thin section posterior fossa slices are provided. Reformats: Sagittal and coronal. FINDINGS: Intraventricular hemorrhage is again noted, greater on the left with layering hemorrhage in the left greater than right occipital horns. The degree of intraventricular hemorrhage is unchanged. The ventricles are unchanged in caliber to prior exam. There is no extracerebral collection. Calvarium and skull base appear intact. Visualized sinuses show no air fluid levels. Opacification in a posterior right ethmoid air cell. Visualized orbits are unremarkable. IMPRESSION: No significant change from prior exam on July 17, 2022. The intraventricular hemorrhage with prominence of the lateral ventricles is unchanged. Normal [facility] CT Head WO contraston 2021 IMPRESSION: No significant change from prior exam on July 17, 2022. The intraventricular hemorrhage with prominence of the lateral ventricles is unchanged. OLOGY EXAM: CT HEAD WITHOU T CONTRAST, 07/18/2022 6:39 PM COMPARISON: CT head on July 17, 2022 CLINICAL INDICATIONS: 67 years Male R/o sah; TECHNIQUE: A series of transaxial computerized tomographic images are obtained from base of skull to vertex without intravenous contrast. Axial whole-head and thin section posterior fossa slices are provided. Reformats: Sagittal and coronal. FINDINGS: Intraventricular hemorrhage is again noted, greater on the left with layering hemorrhage in the left greater than right occipital horns. The degree of intraventricular hemorrhage is unchanged. The ventricles are unchanged in caliber to prior exam. There is no extracerebral collection. Calvarium and skull base appear intact. Visualized sinuses show no air fluid levels. Opacification in a posterior right ethmoid air cell. Visualized orbits are unremarkable. RADIOLOGY Jurgen Murphy MD - 07/18/2022 EXAM: CT HEAD WITHOUT CONTRAST, 07/18/2022 6:39 PM COMPARISON: CT head on July 17, 2022 CLINICAL INDICATIONS: 67 years Male R/o sah; TECHNIQUE: A series of transaxial computerized tomographic images are obtained from base of skull to vertex without intravenous contrast. Axial whole-head and thin section posterior fossa slices are provided. Reformats: Sagittal and coronal. FINDINGS: Intraventricular hemorrhage is again noted, greater on the left with layering hemorrhage in the left greater than right occipital horns. The degree of intraventricular hemorrhage is unchanged. The ventricles are unchanged in caliber to prior exam. There is no extracerebral collection. Calvarium and skull base appear intact. Visualized sinuses show no air fluid levels. Opacification in a posterior right ethmoid air cell. Visualized orbits are unremarkable. IMPRESSION IMPRESSION: No significant change from prior exam on July 17, 2022. The intraventricular hemorrhage with prominence of the lateral ventricles is unchanged. [facility] Radiology Study observation (narrative) [facility] IONIZED CALCIUM, WHOLE BLOOD on 07-18-2022 ICA 4.49 mg/dL Low 4.60-5.30 [facility] Comment on above: Performed By: #### X M #### [facility] (DEFAULT) [address] [place] [address] Laboratory - Chemistry and C hemistry - challengeon 07-18-2022 pH (U) 7.0 [pH] 5.0 - 7.[address] [facility] Specific gravity (U) [Rel density] 1.014 1.001 - 1.[address] [facility] Urobilinogen (U) [Mass/Vol] 1.0 E.U./dL 0.2 E.U/dL, 1.0 E.U/dL [facility] Anion gap [Moles/Vol] 11 mmol/L 7 - 17 mmol/L [facility] Chloride [Moles/Vol] 108 mmol/L 98 - 10 8 mmol/L [facility] CO2 [Moles/Vol] 23 mmol/L 21 - 31 mmol/L [facility] Creatinine [Mass/Vol] 0.66 mg/dL Low 0.70 - 1.30 mg/dL [facility] GFR/1.73 sq M.predicted CKD-EPI (S/P/Bld) [Vol rate/Area] - [facility] Comment on above: Reported eGFR is bas ed on the CKD-EPI 2020 equation using creatinine, age, and sex. Glucose [Mass/Vol] 130 mg/dL High 70 - 99 mg/dL [facility] Magnesium [Mass/Vol] 1.7 mg/dL 1.6 - 2 .6 mg/dL [facility] Osmolality Calc [Osmolality] [address] [facility] Phosphate [Mass/Vol] 3.2 mg/dL 2.2 - 4 .6 mg/dL [facility] Potassium [Moles/Vol] 3.9 mmol/L 3.5 - 5.0 mmol/L [facility] Sodium [Moles/Vol] 138 mmol/L 135 - 145 mmol/L [facility] Urea nitrogen [Mass/Vol] 18 mg/dL 7 - 25 mg/d L [facility] Urea nitrogen/Creatinine [Mass ratio] 27 mg/mg [facility] Laboratory - Chemistry and C hemistry - challengeOrdered By: Kary Moncada on 07-18-2022 Calcium.ionized (Bld) [Moles/Vol] 4.49 mg/dL Low 4.60 - 5.30 mg/dL [facility] Laboratory - Hematology and Cell countson 07-18-2022 Erythrocyte distribution width (RBC) [Ratio] 13.0 % 10.9 - 14.3 % [facility] Hematocrit (Bld) [Volume fraction] 37.1 % Low 39.6 - 48.8 % [facility] Hemoglobin (Bld) [Mass/Vol] 12.8 g/dL Low 13.4 - 16.8 g/dL [facility] MCH (RBC) [Entitic mass] 31.4 pg 26. 1 - 33.[address] [facility] MCHC (RBC) [Mass/Vol] 34.5 g/dL 31.9 - 36.5 g/dL [facility] MCV (RBC) [Entitic vol] 91.2 fL 79.0 - 94.[address] [facility] Platelet mean volume (Bld) [Entitic vol] 10.2 fL 8.7 - 12.[address] [facility] Platelets (Bld) [#/Vol] 234 10*3/uL 146 - 337 K/uL [facility] RBC (Bld) [#/Vol] 4.07 10*6/uL Low [facility] WBC (Bld) [#/Vol] 12.03 10*3/uL High 3.73 - 10 .10 K/uL [facility] Laboratory - Specimen inform ationon 07-18-2022 Appearance (U) Clear Clear [facility] Color (U) Yellow Yellow [facility] Laboratory - Urinalysison Bacteria LM Ql (Urine sed) ABSENT ABSENT [facility] Epithelial cells.squamous LM Ql (Urine sed) ABSENT 1/hpf = 1+, 2-5/hpf = 2+, 0/hpf = 0+, ABSENT [facility] Glucose Test strip (U) [Mass/Vol] Negative Negative [facility] Ketones (U) [Mass/Vol] Negative Negative [facility] Leukocyte esterase Test strip Ql (U) Small Abnormal Negative [facility] Nitrite Ql (U) Negative Negative [facility] Protein (U) [Mass/Vol] Negative Negative [facility] RBC (U) [#/Vol] Moderate Abnormal Negative [facility] RBC LM.HPF (Urine sed) [#/Area] 10-20 Abnormal [facility] WBC LM.HPF (Urine sed) [#/Area] 10-[address] Ab[address] [facility] MAGNESIUMon 07-18-2022 Magnesium [Mass/Vol] 1.7 mg/dL Normal 1.6-2.6 [facility] Comment on above: Performed By: #### X M #### U [facility] (DEFAULT) [address] [place] [address] MR Brain WO contraston 07-18 IMPRESSION: Incomplete examination due to patient intolerance. No significant interval change in intraventricular hemorrhage. Ventricular system is stable in size. No progressive hydrocephalus. Incomplete sulcal FLAIR suppression in the bilateral occipital and posterior temporal lobes, which could reflect subarachnoid hemorrhage or be related to hyperoxygenation therapy. I personally viewed and interpreted these images and I have reviewed and approved this report. OLOGY EXAM: MRI BRAIN WITHOUT CONTRAST, 07/18/2022 02:36 AM COMPARISON: CT head 07/17/2022. CLINICAL INDICATIONS: 67 years Male further eval IVH ? of mcdermott mcdermott; TECHNIQUE: A series of multisequence, multiplanar images of the brain are obtained without intravenous contrast. Study was performed at 1.5 Yoon. FINDINGS: Incomplete examination with only localizers, sagittal and axial T1 precontrast images, and axial T2 FLAIR images obtained due to patient intolerance. Incomplete sulcal FLAIR suppression in the bilateral occipital and posterior temporal lobes. No significant interval change in intraventricular hemorrhage. Ventricles are stable in size and configuration. No progressive hydrocephalus. Mild degree of scattered cerebral white matter FLAIR signal hyperintensities which are nonspecific, but compatible with minimal microvascular changes. No evidence of edema. No evidence of mass lesion. Extracranial structures are unremarkable. RADIOLOGY Atilio Wright MD - 07/18/2022 EXAM: MRI BRAIN WITHOUT CONTRAST, 07/18/2022 02:36 AM COMPARISON: CT head 07/17/2022. CLINICAL INDICATIONS: 67 years Male further eval IVH ? of mcdermott mcdermott; TECHNIQUE: A series of multisequence, multiplanar images of the brain are obtained without intravenous contrast. Study was performed at 1.5 Yoon. FINDINGS: Incomplete examination with only localizers, sagittal and axial T1 precontrast images, and axial T2 FLAIR images obtained due to patient intolerance. Incomplete sulcal FLAIR suppression in the bilateral occipital and posterior temporal lobes. No significant interval change in intraventricular hemorrhage. Ventricles are stable in size and configuration. No progressive hydrocephalus. Mild degree of scattered cerebral white matter FLAIR signal hyperintensities which are nonspecific, but compatible with minimal microvascular changes. No evidence of edema. No evidence of mass lesion. Extracranial structures are unremarkable. IMPRESSION IMPRESSION: Incomplete examination due to patient intolerance. No significant interval change in intraventricular hemorrhage. Ventricular system is stable in size. No progressive hydrocephalus. Incomplete sulcal FLAIR suppression in the bilateral occipital and posterior temporal lobes, which could reflect subarachnoid hemorrhage or be related to hyperoxygenation therapy. I personally viewed and interpreted these images and I have reviewed and approved this report. [facility] Radiology Study observation (narrative) [facility] MRI BRAIN WITHOUT CONTRASTon 07-18-2022 MRI BRAIN WITHOUT CONTRAST EXAM: MRI BRAIN WITHOUT CONTRAST, 07/18/2022 02:36 AM COMPARISON: CT head 07/17/2022. CLINICAL INDICATIONS: 67 years Male further eval IVH ? of mcdermott mcdermott; TECHNIQUE: A series of multisequence, multiplanar images of the brain are obtained without intravenous contrast. Study was performed at 1.5 Yoon. FINDINGS: Incomplete examination with only localizers, sagittal and axial T1 precontrast images, and axial T2 FLAIR images obtained due to patient intolerance. Incomplete sulcal FLAIR suppression in the bilateral occipital and posterior temporal lobes. No significant interval change in intraventricular hemorrhage. Ventricles are stable in size and configuration. No progressive hydrocephalus. Mild degree of scattered cerebral white matter FLAIR signal hyperintensities which are nonspecific, but compatible with minimal microvascular changes. No evidence of edema. No evidence of mass lesion. Extracranial structures are unremarkable. IMPRESSION: Incomplete examination due to patient intolerance. No significant interval change in intraventricular hemorrhage. Ventricular system is stable in size. No progressive hydrocephalus. Incomplete sulcal FLAIR suppression in the bilateral occipital and posterior temporal lobes, which could reflect subarachnoid hemorrhage or be related to hyperoxygenation therapy. I personally viewed and interpreted these images and I have reviewed and approved this report. Normal [facility] No Panel Informationon 07-18 Interpretation and review of laboratory results Abnormal [facility] Interpretation and review of laboratory results Abnormal [facility] Interpretation and review of laboratory results Normal [facility] Interpretation and review of laboratory results Abnormal [facility] No Panel InformationOrdered By: Kary Moncada on 07-18-2022 Interpretation and review of laboratory results Abnormal [facility] PHOSPHATE, INORGANICon 07-18 Phosphorous 3.2 mg/dL Normal 2.2-4.6 [facility] Comment on above: Performed By: #### X M #### [facility] (DEFAULT) [address] [address] URINALYSISon 07-18-2022 Appearance (U) Clear Normal Clear [facility] Comment on above: Performed By: #### U RIN #### [facility] (DEFAULT) [address] [address] Bacteria ABSENT Normal ABSENT [facility] Comment on above: Performed By: #### U RIN #### [facility] (DEFAULT) [address] [address] Blood Urine Moderate Abnormal Negative [facility] Comment on above: Performed By: #### U RIN #### [facility] (DEFAULT) [address] [place] [address] Color (U) Yellow Normal Yellow [facility] Comment on above: Performed By: #### U RIN #### [facility] (DEFAULT) [address] [place] [address] Glucose Ql (U) Negative Normal Negative [facility] Comment on above: Performed By: #### U RIN #### [facility] (DEFAULT) [address] [place] [address] Ketones Ql (U) Negative Normal Negative [facility] Comment on above: Performed By: #### U RIN #### [facility] (DEFAULT) [address] [place] [address] Leukocyte esterase Test strip Ql (U) Small Abnormal Negative [facility] Comment on above: Performed By: #### U RIN #### [facility] (DEFAULT) [address] [place] [address] Nitrites Urine Negative Normal Negative [facility] Comment on above: Performed By: #### U RIN #### [facility] (DEFAULT) [address] [place] [address] pH (U) 7.0 [pH] Normal 5.0-7.0 [facility] Comment on above: Performed By: #### U RIN #### [facility] (DEFAULT) [address] [place] [address] Protein Urine Negative Normal Negative [facility] Comment on above: Performed By: #### U RIN #### [facility] (DEFAULT) [address] [place] [address] RBC Urine 10-20 Abnormal 0-2 [facility] Comment on above: Performed By: #### U RIN #### [facility] (DEFAULT) [address] [place] [address] Specific [place] Urine 1.014 Normal 1.001-1.035 [facility] Comment on above: Performed By: #### U RIN #### [facility] (DEFAULT) [address] [address] Squamous/Epithelial Cells ABSENT Normal 1/hpf = 1+, 2-5/hpf = 2+, 0/hpf = 0+, ABSENT [facility] Comment on above: Performed By: #### U RIN #### [facility] (DEFAULT) [address] [address] Urobilinogen Urine 1.0 E.U./dL Normal 0.2 E.U/d L, 1.0 E.U/dL [facility] Comment on above: Performed By: #### U RIN #### [facility] (DEFAULT) [address] [address] WBC Urine 10-20 Abnormal 0-5 [facility] Comment on above: Performed By: #### U RIN #### [facility] (DEFAULT) [address] [address] URINE CULTUREon 07-18-2022 Bacteria identified Cx Nom (U) No Growth Normal [facility] Comment on above: Order Comment: For i ndwelling catheters, specimen collection is acceptable on catheter day 1 and 2 only. [place] top vacutainer. Urine must be to the fill line to process (4mls). If minimum volume, send urine in a yellow top vacutainer tube. Performed By: #### X M #### [facility] (DEFAULT) [address] [address] CBC,PLATELETSon 07-17-2022 Hematocrit (Bld) [Volume fraction] 37.3 % Low 39.6-48.8 [facility] [facility] Comment on above: Performed By: #### U RIN #### U [facility] (DEFAULT) [address] [address] Hemoglobin (Bld) [Mass/Vol] 12.9 g/dL Low 13.4-16.8 [facility] Comment on above: Performed By: #### U RIN #### U [facility] (DEFAULT) [address] [place] [address] 13247 MCV (RBC) [Entitic vol] 89.2 fL Normal 79.0-94.5 O [facility] [place] Comment on above: Performed By: #### U RIN #### U [facility] (DEFAULT) [address] [place] [address] 72678 Mean Cell Hgb 30.9 pg Normal 26.1-33.3 [facility] Comment on above: Performed By: #### U RIN #### U [facility] (DEFAULT) [address] [place] [address] 68115 Mean Cell Hgb Conc 34.6 g/dL Normal 31.9-36.5 [facility] [place] Comment on above: Performed By: #### U RIN #### [facility] (DEFAULT) [address] [place] [address]85 Platelet mean volume (Bld) [Entitic vol] 9.8 fL Normal 8.7-12.3 [facility] Comment on above: Performed By: #### U RIN #### [facility] (DEFAULT) [address] [place] [address] 93501 Platelets (Bld) [#/Vol] 237 10*3/uL Normal 146-337 [facility] Comment on above: Performed By: #### U RIN #### [facility] (DEFAULT) [address] [place] [address] 14607 RBC (Bld) [#/Vol] 4.18 10*6/uL Low 4.38-5.83 [facility] Comment on above: Performed By: #### U RIN #### U [facility] (DEFAULT) [address] [place] [address] 11860 RBC Distribution 13.0 % Normal 10.9-14.3 [facility] Comment on above: Performed By: #### U RIN #### U [facility] (DEFAULT) [address] [place] [address] 28798 WBC (Bld) [#/Vol] 11.75 10*3/uL High 3.73-10.10 [facility] Comment on above: Performed By: #### U RIN #### U [facility] (DEFAULT) [address] [place] [address] 48413 CHEM 7 (LYTES,BUN,CREA,GLUC) on 07-17-2022 Anion gap [Moles/Vol] 14 mmol/L Normal 7-17 [facility] Comment on above: Performed By: #### H EMOGC #### [facility] (DEFAULT) [address] [place] [address]687 Chloride [Moles/Vol] 107 mmol/L Normal 98-108 [facility] Comment on above: Performed By: #### H EMOGC #### U [facility] (DEFAULT) [address] [place] [address] 31278 CO2 [Moles/Vol] 20 mmol/L Low 21-31 [facility] Comment on above: Performed By: #### H EMOGC #### [facility] (DEFAULT) [address] [place] [address] 71305 Creatinine [Mass/Vol] 0.80 mg/dL Normal 0.70-1.30 [facility] Comment on above: Performed By: #### H EMOGC #### U [facility] (DEFAULT) [address] [place] [address] 62294 eGFR, CKD-EPI, Male > Normal >=60 [facility] Comment on above: Result Comment: Repo rted eGFR is based on the CKD-EPI 2020 equation using creatinine, age, and sex. Performed By: #### H EMOGC #### U [facility] (DEFAULT) [address] [place] [address] 72774 Glucose [Mass/Vol] 130 mg/dL High 70-99 [facility] [place] Comment on above: Performed By: #### H EMOGC #### U [facility] (DEFAULT) [address] [place] [address] 61063 Osmolality [Osmolality] 295 mosm/kg Normal 278-305 [facility] Comment on above: Performed By: #### H EMOGC #### [facility] (DEFAULT) [address] [place] [address] Potassium [Moles/Vol] 3.4 mmol/L Low 3.5-5.0 [facility] Comment on above: Performed By: #### H EMOGC #### [facility] (DEFAULT) [address] [place] [address] Sodium [Moles/Vol] 138 mmol/L Normal 135-145 [facility] [place] Comment on above: Performed By: #### H EMOGC #### U [facility] (DEFAULT) [address] [place] [address] 08882 Urea nitrogen [Mass/Vol] 27 mg/dL High 7-25 [facility] Comment on above: Performed By: #### H EMOGC #### U [facility] (DEFAULT) [address] [place] [address] 31324 Urea nitrogen/Creatinine [Mass ratio] 34 mg/mg Normal [facility] Comment on above: Performed By: #### H EMOGC #### U [facility] (DEFAULT) [address] [place] [address] HEAD WITHOUT CONTRASTon 1 09-17-2021 CT HEAD WITHOUT CONTRAST EXAM: CT HEAD W ITHOUT CONTRAST, 07/17/2022 8:10 AM COMPARISON: CT head performed earlier today at 2:10 AM. CLINICAL INDICATIONS: 67 years Male hydrocephalus; TECHNIQUE: A series of transaxial computerized tomographic images are obtained from base of skull to vertex without intravenous contrast. Axial whole-head and thin section posterior fossa slices are provided. Reformats: Sagittal and coronal. FINDINGS: No significant change in volume or distribution of intraventricular hemorrhage within the bilateral lateral ventricles, third ventricle, and fourth ventricle. No new or increasing intracranial hemorrhage. Ventricles are stable in size and configuration. No significant mass effect or shift of the midline structures. Stubbs-white matter differentiation is maintained. Patchy cerebral white matter hypoattenuation is nonspecific, but compatible with chronic microvascular changes. There is no extracerebral collection. Posterior fossa is within normal limits. Calvarium and skull base appear intact. Visualized sinuses show no air fluid levels. Visualized orbits are unremarkable. IMPRESSION: Stable intraventricular hemorrhage. No new or increasing intracranial hemorrhage. Stable size of the ventricular system compared to the prior study performed earlier today. I personally viewed and interpreted these images and I have reviewed and approved this report. Normal [facility] CT HEAD WITHOUT CONTRAST EXAM: CT HEAD W ITHOUT CONTRAST, 07/17/2022 2:21 AM COMPARISON: CT head 07/16/2022. CLINICAL INDICATIONS: 67 years Male worse hydro; TECHNIQUE: A series of transaxial computerized tomographic images are obtained from base of skull to vertex without intravenous contrast. Axial whole-head and thin section posterior fossa slices are provided. Reformats: Sagittal and coronal. FINDINGS: Evaluation is degraded due to extensive patient motion. Overall, no significant change in volume of intraventricular hemorrhage within the bilateral lateral ventricles, third ventricle, and fourth ventricle. However, there has been slight redistribution of hemorrhage. No new or increasing intracranial hemorrhage. Lateral and third ventricles have decreased in size compared to prior study. No significant mass effect or shift of the midline structures. Stubbs-white matter differentiation is maintained. Patchy cerebral white matter hypoattenuation is nonspecific, but compatible with chronic microvascular changes. There is no extracerebral collection. Posterior fossa is within normal limits. Calvarium and skull base appear intact. Visualized sinuses show no air fluid levels. Visualized orbits are unremarkable. IMPRESSION: No significant change in volume of acute intraventricular hemorrhage. No new or increasing intracranial hemorrhage. Slightly decreased size of the lateral and third ventricles compared to the prior study. I personally viewed and interpreted these images and I have reviewed and approved this report. Normal [facility] CT Head WO contraston 2021 IMPRESSION: Stable intraventricular hemorrhage. No new or increasing intracranial hemorrhage. Stable size of the ventricular system compared to the prior study performed earlier today. I personally viewed and interpreted these images and I have reviewed and approved this report. OLOGY EXAM: CT HEAD WITHOU T CONTRAST, 07/17/2022 8:10 AM COMPARISON: CT head performed earlier today at 2:10 AM. CLINICAL INDICATIONS: 67 years Male hydrocephalus; TECHNIQUE: A series of transaxial computerized tomographic images are obtained from base of skull to vertex without intravenous contrast. Axial whole-head and thin section posterior fossa slices are provided. Reformats: Sagittal and coronal. FINDINGS: No significant change in volume or distribution of intraventricular hemorrhage within the bilateral lateral ventricles, third ventricle, and fourth ventricle. No new or increasing intracranial hemorrhage. Ventricles are stable in size and configuration. No significant mass effect or shift of the midline structures. Stubbs-white matter differentiation is maintained. Patchy cerebral white matter hypoattenuation is nonspecific, but compatible with chronic microvascular changes. There is no extracerebral collection. Posterior fossa is within normal limits. Calvarium and skull base appear intact. Visualized sinuses show no air fluid levels. Visualized orbits are unremarkable. RADIOLOGY Atilio Wright MD - 07/17/2022 EXAM: CT HEAD WITHOUT CONTRAST, 07/17/2022 8:10 AM COMPARISON: CT head performed earlier today at 2:10 AM. CLINICAL INDICATIONS: 67 years Male hydrocephalus; TECHNIQUE: A series of transaxial computerized tomographic images are obtained from base of skull to vertex without intravenous contrast. Axial whole-head and thin section posterior fossa slices are provided. Reformats: Sagittal and coronal. FINDINGS: No significant change in volume or distribution of intraventricular hemorrhage within the bilateral lateral ventricles, third ventricle, and fourth ventricle. No new or increasing intracranial hemorrhage. Ventricles are stable in size and configuration. No significant mass effect or shift of the midline structures. Stubbs-white matter differentiation is maintained. Patchy cerebral white matter hypoattenuation is nonspecific, but compatible with chronic microvascular changes. There is no extracerebral collection. Posterior fossa is within normal limits. Calvarium and skull base appear intact. Visualized sinuses show no air fluid levels. Visualized orbits are unremarkable. IMPRESSION IMPRESSION: Stable intraventricular hemorrhage. No new or increasing intracranial hemorrhage. Stable size of the ventricular system compared to the prior study performed earlier today. I personally viewed and interpreted these images and I have reviewed and approved this report. [facility] IMPRESSION: No significant change in volume of acute intraventricular hemorrhage. No new or increasing intracranial hemorrhage. Slightly decreased size of the lateral and third ventricles compared to the prior study. I personally viewed and interpreted these images and I have reviewed and approved this report. OLOGY EXAM: CT HEAD WITHOU T CONTRAST, 07/17/2022 2:21 AM COMPARISON: CT head 07/16/2022. CLINICAL INDICATIONS: 67 years Male worse hydro; TECHNIQUE: A series of transaxial computerized tomographic images are obtained from base of skull to vertex without intravenous contrast. Axial whole-head and thin section posterior fossa slices are provided. Reformats: Sagittal and coronal. FINDINGS: Evaluation is degraded due to extensive patient motion. Overall, no significant change in volume of intraventricular hemorrhage within the bilateral lateral ventricles, third ventricle, and fourth ventricle. However, there has been slight redistribution of hemorrhage. No new or increasing intracranial hemorrhage. Lateral and third ventricles have decreased in size compared to prior study. No significant mass effect or shift of the midline structures. Stubbs-white matter differentiation is maintained. Patchy cerebral white matter hypoattenuation is nonspecific, but compatible with chronic microvascular changes. There is no extracerebral collection. Posterior fossa is within normal limits. Calvarium and skull base appear intact. Visualized sinuses show no air fluid levels. Visualized orbits are unremarkable. RADIOLOGY Atilio Wright MD - 07/17/2022 EXAM: CT HEAD WITHOUT CONTRAST, 07/17/2022 2:21 AM COMPARISON: CT head 07/16/2022. CLINICAL INDICATIONS: 67 years Male worse hydro; TECHNIQUE: A series of transaxial computerized tomographic images are obtained from base of skull to vertex without intravenous contrast. Axial whole-head and thin section posterior fossa slices are provided. Reformats: Sagittal and coronal. FINDINGS: Evaluation is degraded due to extensive patient motion. Overall, no significant change in volume of intraventricular hemorrhage within the bilateral lateral ventricles, third ventricle, and fourth ventricle. However, there has been slight redistribution of hemorrhage. No new or increasing intracranial hemorrhage. Lateral and third ventricles have decreased in size compared to prior study. No significant mass effect or shift of the midline structures. Stubbs-white matter differentiation is maintained. Patchy cerebral white matter hypoattenuation is nonspecific, but compatible with chronic microvascular changes. There is no extracerebral collection. Posterior fossa is within normal limits. Calvarium and skull base appear intact. Visualized sinuses show no air fluid levels. Visualized orbits are unremarkable. IMPRESSION IMPRESSION: No significant change in volume of acute intraventricular hemorrhage. No new or increasing intracranial hemorrhage. Slightly decreased size of the lateral and third ventricles compared to the prior study. I personally viewed and interpreted these images and I have reviewed and approved this report. [facility] Radiology Study observation (narrative) [facility] Radiology Study observation [facility]narrative[facility] contrastOrdered B y: Atilio Wright on 07-17-[address] [facility] Work Phone: IONIZED CALCIUM, WHOLE BLOOD on 07-17-2022 ICA 4.53 mg/dL Low 4.60-5.30 [facility] Comment on above: Performed By: #### H [facility] #### [facility] (DEFAULT) [address] [place] [address] Laboratory - Chemistry and C hemistry - challengeon 07-17-2022 Anion gap [Moles/Vol] 14 mmol/L 7 - 17 mmol/L [facility] Chloride [Moles/Vol] 107 mmol/L 98 - 10 8 mmol/L [facility] CO2 [Moles/Vol] 20 mmol/L Low 21 - 31 mmol/L [facility] Creatinine [Mass/Vol] 0.80 mg/dL 0.70 - 1.30 mg/dL [facility] GFR/1.73 sq M.predicted CKD-EPI (S/P/Bld) [Vol rate/Area] - PINF [facility] Comment on above: Reported eGFR is bas ed on the CKD-EPI 2020 equation using creatinine, age, and sex. Glucose [Mass/Vol] 130 mg/dL High 70 - 99 mg/dL [facility] Magnesium [Mass/Vol] 2.1 mg/dL 1.6 - 2 .6 mg/dL [facility] Osmolality Calc [Osmolality] 295 [facility] Phosphate [Mass/Vol] 2.8 mg/dL 2.2 - 4 .6 mg/dL [facility] Potassium [Moles/Vol] 3.4 mmol/L Low 3.5 - 5.0 mmol/L [facility] Sodium [Moles/Vol] 138 mmol/L 135 - 145 mmol/L [facility] Urea nitrogen [Mass/Vol] 27 mg/dL High 7 - 25 mg/d L [facility] Urea nitrogen/Creatinine [Mass ratio] 34 mg/mg [facility] Laboratory - Chemistry and C hemistry - challengeOrdered By: Divina Eldridge on 07-17-2022 Calcium.ionized (Bld) [Moles/Vol] 4.53 mg/dL Low 4.60 - 5.30 mg/dL [facility] Laboratory - Hematology and Cell countson 07-17-2022 Erythrocyte distribution width (RBC) [Ratio] 13.0 % 10.9 - 14.3 % [facility] Hematocrit (Bld) [Volume fraction] 37.3 % Low 39.6 - 48.8 % [facility] Hemoglobin (Bld) [Mass/Vol] 12.9 g/dL Low 13.4 - 16.8 g/dL [facility] MCH (RBC) [Entitic mass] 30.9 pg 26. 1 - 33.[address] [facility] MCHC (RBC) [Mass/Vol] 34.6 g/dL 31.9 - 36.5 g/dL [facility] MCV (RBC) [Entitic vol] 89.2 fL 79.0 - 94.[address] [facility] Platelet mean volume (Bld) [Entitic vol] 9.8 fL 8.7 - 12.[address] [facility] Platelets (Bld) [#/Vol] 237 10*3/uL 146 - 337 K/uL [facility] RBC (Bld) [#/Vol] 4.18 10*6/uL Low [facility] WBC (Bld) [#/Vol] 11.75 10*3/uL High 3.73 - 10 .10 K/uL [facility] MAGNESIUMon 07-17-2022 Magnesium [Mass/Vol] 2.1 mg/dL Normal 1.6-2.6 [facility] Comment on above: Performed By: #### H EMO #### [facility] (DEFAULT) [address] [place] [address] No Panel Informationon 07-17 Interpretation and review of laboratory results Abnormal [facility] Interpretation and review of laboratory results Normal [facility] Interpretation and review of laboratory results Abnormal [facility] No Panel InformationOrdered By: Divina Eldridge on 07-17-2022 Interpretation and review of laboratory results Abnormal [facility] PHOSPHATE, INORGANICon 07-17 Phosphorous 2.8 mg/dL Normal 2.2-4.6 [facility] Comment on above: Performed By: #### H EMO #### [facility] (DEFAULT) [address] [place] [address] 89027 C REACTIVE PROTEINon 022 CRP [Mass/Vol] 27.13 mg/L High <10.00 [facility] Comment on above: Performed By: #### H EMO #### [facility] (DEFAULT) [address] [place] [address] 12933 CBC,PLATELETSon 07-16-2022 Hematocrit (Bld) [Volume fraction] 37.3 % Low 39.6-48.8 [facility] Comment on above: Performed By: #### H EMOGC #### [facility] (DEFAULT) [address] [place] [address]60 Hemoglobin (Bld) [Mass/Vol] 12.7 g/dL Low 13.4-16.8 [facility] Comment on above: Performed By: #### H EMOGC #### [facility] (DEFAULT) [address] [place] [address] 02475 MCV (RBC) [Entitic vol] 91.2 fL Normal 79.0-94.5 [facility] [place] Comment on above: Performed By: #### H EMOGC #### [facility] (DEFAULT) [address] [address] Mean Cell Hgb 31.1 pg Normal 26.1-33.3 [facility] Comment on above: Performed By: #### H EMOGC #### [facility] (DEFAULT) [address] [address] Mean Cell Hgb Conc 34.0 g/dL Normal 31.9-36.5 [facility] [place] Comment on above: Performed By: #### H EMOGC #### [place] [facility] (DEFAULT) [address] [address] Platelet mean volume (Bld) [Entitic vol] 10.2 fL Normal 8.7-12.3 [facility] Comment on above: Performed By: #### H EMO #### [facility] (DEFAULT) [address] [address] Platelets (Bld) [#/Vol] 216 10*3/uL Normal 146-337 [facility] Comment on above: Performed By: #### H EMOGC #### [facility] (DEFAULT) [address] [address] RBC (Bld) [#/Vol] 4.09 10*6/uL Low 4.38-5.83 [facility] Comment on above: Performed By: #### H EMOGC #### [place] (DEFAULT) [address] [address] RBC Distribution 12.8 % Normal 10.9-14.3 [facility] Comment on above: Performed By: #### H EMOGC #### [place] [facility] (DEFAULT) [address] [address] WBC (Bld) [#/Vol] 9.79 10*3/uL Normal 3.73-10.10 [facility] Comment on above: Performed By: #### H EMOGC #### U [facility] (DEFAULT) [address] [place] [address] CHEM 7 (LYTES,BUN,CREA,GLUC) on 07-16-2022 Anion gap [Moles/Vol] 10 mmol/L Normal 7-17 [facility] Comment on above: Performed By: #### H EMOGC #### U [facility] (DEFAULT) [address] [place] [address]87 Chloride [Moles/Vol] 111 mmol/L High 98-108 [facility] Comment on above: Performed By: #### H EMOGC #### [facility] (DEFAULT) [address] [place] [address] 49519 CO2 [Moles/Vol] 24 mmol/L Normal 21-31 [facility] Comment on above: Performed By: #### H EMO #### [facility] (DEFAULT) [address] [place] [address]991 Creatinine [Mass/Vol] 0.56 mg/dL Low 0.70-1.30 [facility] Comment on above: Performed By: #### H EMO #### [facility] (DEFAULT) [address] [place] [address] 24752 eGFR, CKD-EPI, Male > Normal >=60 [facility] Comment on above: Result Comment: Repo rted eGFR is based on the CKD-EPI 2020 equation using creatinine, age, and sex. Performed By: #### H EMOGC #### [facility] (DEFAULT) [address] [place] [address] Glucose [Mass/Vol] 116 mg/dL High 70-99 [facility] [place] Comment on above: Performed By: #### H EMOGC #### [facility] (DEFAULT) [address] [place] [address]70 Osmolality [Osmolality] 299 mosm/kg Normal 278-305 [facility] Comment on above: Performed By: #### H EMOGC #### [facility] (DEFAULT) [address] [place] [address] Potassium [Moles/Vol] 4.3 mmol/L Normal 3.5-5.0 [facility] Comment on above: Performed By: #### H EMOGC #### [facility] (DEFAULT) [address] [place] [address] Sodium [Moles/Vol] 141 mmol/L Normal 135-145 [facility] Comment on above: Performed By: #### H EMOGC #### U [facility] (DEFAULT) [address] [place] [address] Urea nitrogen [Mass/Vol] 20 mg/dL Normal 7-25 [facility] Comment on above: Performed By: #### H EMOGC #### U [facility] (DEFAULT) [address] [place] [address] Urea nitrogen/Creatinine [Mass ratio] 36 mg/mg Normal [facility] Comment on above: Performed By: #### H EMOGC #### U [facility] (DEFAULT) [address] [place] [address] HEAD WITHOUT CONTRASTon 1 09-16-2021 CT HEAD WITHOUT CONTRAST EXAM: CT HEAD W ITHOUT CONTRAST, 07/16/2022 6:31 PM COMPARISON: Same day CT head CLINICAL INDICATIONS: 67 years Male mental status change concern for worsening hydrocephalus; TECHNIQUE: A series of transaxial computerized tomographic images are obtained from base of skull to vertex without intravenous contrast. Axial whole-head and thin section posterior fossa slices are provided. Reformats: Sagittal and coronal. FINDINGS: Evaluation is limited secondary to extensive patient motion. Redemonstration of intraventricular hemorrhage within the bilateral lateral ventricles, third ventricle, fourth ventricle, overall decrease in size. However, there is slight interval increase in size of the ventricular system suspicious for developing hydrocephalus. No intracranial mass or evidence of mass-effect. No midline shift or herniation. Stubbs-white differentiation is maintained.Patchy areas of white matter hypoattenuation are nonspecific but compatible with small vessel ischemic disease. The ventricles and sulci are prominent, compatible with age-related parenchymal volume loss. No extra-axial collections. The sella and orbits are unremarkable. The visualized portions of the paranasal sinuses are clear. Mastoid air cells are clear. Calvarium is intact. IMPRESSION: Redemonstration of acute intraventricular hemorrhage, overall slightly decreased compared to prior. However, there is slight interval increase in size of the ventricular system compatible with hydrocephalus. Normal [facility] CT HEAD WITHOUT CONTRAST EXAM: CT HEAD W ITHOUT CONTRAST, 07/16/2022 9:16 AM COMPARISON: CT head without contrast dated July 15, 2022 CLINICAL INDICATIONS: 67 years Male follow hydrocephalus; TECHNIQUE: A series of transaxial computerized tomographic images are obtained from base of skull to vertex without intravenous contrast. Axial whole-head and thin section posterior fossa slices are provided. Reformats: Sagittal and coronal. FINDINGS: Redemonstration of interventricular hemorrhage extending into the lateral ventricles, third ventricle and fourth ventricle, similar to prior study. The ventricles are stable in size and configuration. The left lateral ventricle as well as the temporal horn again appear to be asymmetrically prominent when compared to the contralateral side. No new intracranial hemorrhage and/or extra-axial collection. No significant mass effect or midline shift. No mass lesion and/or acute large territory infarct. Stubbs-white differentiation is preserved. Posterior fossa structures appear unremarkable. Vascular calcifications along the major arteries at the skull base. Calvarium and skull base appear intact. No air-fluid levels. Mastoid air cells are clear. Visualized orbits are unremarkable. IMPRESSION: No significant interval change in volume of intraventricular hemorrhage and mild ventricular enlargement. I personally viewed and interpreted these images and I have reviewed and approved this report. Normal [facility] CT Head WO contraston 2021 IMPRESSION: Redemonstration of acute intraventricular hemorrhage, overall slightly decreased compared to prior. However, there is slight interval increase in size of the ventricular system compatible with hydrocephalus. OLOGY EXAM: CT HEAD WITHOU T CONTRAST, 07/16/2022 6:31 PM COMPARISON: Same day CT head CLINICAL INDICATIONS: 67 years Male mental status change concern for worsening hydrocephalus; TECHNIQUE: A series of transaxial computerized tomographic images are obtained from base of skull to vertex without intravenous contrast. Axial whole-head and thin section posterior fossa slices are provided. Reformats: Sagittal and coronal. FINDINGS: Evaluation is limited secondary to extensive patient motion. Redemonstration of intraventricular hemorrhage within the bilateral lateral ventricles, third ventricle, fourth ventricle, overall decrease in size. However, there is slight interval increase in size of the ventricular system suspicious for developing hydrocephalus. No intracranial mass or evidence of mass-effect. No midline shift or herniation. Stubbs-white differentiation is maintained.Patchy areas of white matter hypoattenuation are nonspecific but compatible with small vessel ischemic disease. The ventricles and sulci are prominent, compatible with age-related parenchymal volume loss. No extra-axial collections. The sella and orbits are unremarkable. The visualized portions of the paranasal sinuses are clear. Mastoid air cells are clear. Calvarium is intact. RADIOLOGY Galina Diehl MD - 07/16/2022 EXAM: CT HEAD WITHOUT CONTRAST, 07/16/2022 6:31 PM COMPARISON: Same day CT head CLINICAL INDICATIONS: 67 years Male mental status change concern for worsening hydrocephalus; TECHNIQUE: A series of transaxial computerized tomographic images are obtained from base of skull to vertex without intravenous contrast. Axial whole-head and thin section posterior fossa slices are provided. Reformats: Sagittal and coronal. FINDINGS: Evaluation is limited secondary to extensive patient motion. Redemonstration of intraventricular hemorrhage within the bilateral lateral ventricles, third ventricle, fourth ventricle, overall decrease in size. However, there is slight interval increase in size of the ventricular system suspicious for developing hydrocephalus. No intracranial mass or evidence of mass-effect. No midline shift or herniation. Stubbs-white differentiation is maintained.Patchy areas of white matter hypoattenuation are nonspecific but compatible with small vessel ischemic disease. The ventricles and sulci are prominent, compatible with age-related parenchymal volume loss. No extra-axial collections. The sella and orbits are unremarkable. The visualized portions of the paranasal sinuses are clear. Mastoid air cells are clear. Calvarium is intact. IMPRESSION IMPRESSION: Redemonstration of acute intraventricular hemorrhage, overall slightly decreased compared to prior. However, there is slight interval increase in size of the ventricular system compatible with hydrocephalus. [facility] Radiology Study observation (narrative) [facility] IMPRESSION: No significant interval change in volume of intraventricular hemorrhage and mild ventricular enlargement. I personally viewed and interpreted these images and I have reviewed and approved this report. OLOGY EXAM: CT HEAD WITHOU T CONTRAST, 07/16/2022 9:16 AM COMPARISON: CT head without contrast dated July 15, 2022 CLINICAL INDICATIONS: 67 years Male follow hydrocephalus; TECHNIQUE: A series of transaxial computerized tomographic images are obtained from base of skull to vertex without intravenous contrast. Axial whole-head and thin section posterior fossa slices are provided. Reformats: Sagittal and coronal. FINDINGS: Redemonstration of interventricular hemorrhage extending into the lateral ventricles, third ventricle and fourth ventricle, similar to prior study. The ventricles are stable in size and configuration. The left lateral ventricle as well as the temporal horn again appear to be asymmetrically prominent when compared to the contralateral side. No new intracranial hemorrhage and/or extra-axial collection. No significant mass effect or midline shift. No mass lesion and/or acute large territory infarct. Stubbs-white differentiation is preserved. Posterior fossa structures appear unremarkable. Vascular calcifications along the major arteries at the skull base. Calvarium and skull base appear intact. No air-fluid levels. Mastoid air cells are clear. Visualized orbits are unremarkable. RADIOLOGY Rehan Doyle M D - 07/16/2022 EXAM: CT HEAD WITHOUT CONTRAST, 07/16/2022 9:16 AM COMPARISON: CT head without contrast dated July 15, 2022 CLINICAL INDICATIONS: 67 years Male follow hydrocephalus; TECHNIQUE: A series of transaxial computerized tomographic images are obtained from base of skull to vertex without intravenous contrast. Axial whole-head and thin section posterior fossa slices are provided. Reformats: Sagittal and coronal. FINDINGS: Redemonstration of interventricular hemorrhage extending into the lateral ventricles, third ventricle and fourth ventricle, similar to prior study. The ventricles are stable in size and configuration. The left lateral ventricle as well as the temporal horn again appear to be asymmetrically prominent when compared to the contralateral side. No new intracranial hemorrhage and/or extra-axial collection. No significant mass effect or midline shift. No mass lesion and/or acute large territory infarct. Stubbs-white differentiation is preserved. Posterior fossa structures appear unremarkable. Vascular calcifications along the major arteries at the skull base. Calvarium and skull base appear intact. No air-fluid levels. Mastoid air cells are clear. Visualized orbits are unremarkable. IMPRESSION IMPRESSION: No significant interval change in volume of intraventricular hemorrhage and mild ventricular enlargement. I personally viewed and interpreted these images and I have reviewed and approved this report. [facility] Radiology Study observation (narrative) [facility] CT Head WO contrastOrdered B y: Galina Diehl on 07-16-[address] [facility] [address] Head WO contrastOrdered B y: Rehan Doyle on 07-16-[address] [facility] Work Phone: IONIZED CALCIUM, WHOLE BLOOD on 07-16-2022 ICA 4.72 mg/dL Normal 4.60-5.30 [facility] Comment on above: Performed By: #### I CA #### [facility] (DEFAULT) [address] [place] [address] Laboratory - Chemistry and C hemistry - challengeon 07-16-2022 Anion gap [Moles/Vol] 10 mmol/L 7 - 17 mmol/L [facility] Chloride [Moles/Vol] 111 mmol/L High 98 - 10 8 mmol/L [facility] CO2 [Moles/Vol] 24 mmol/L 21 - 31 mmol/L [facility] Creatinine [Mass/Vol] 0.56 mg/dL Low 0.70 - 1.30 mg/dL [facility] GFR/1.73 sq M.predicted CKD-EPI (S/P/Bld) [Vol rate/Area] - PINF [facility] Comment on above: Reported eGFR is bas ed on the CKD-EPI 2020 equation using creatinine, age, and sex. Glucose [Mass/Vol] 116 mg/dL High 70 - 99 mg/dL [facility] Osmolality Calc [Osmolality] 299 [facility] Phosphate [Mass/Vol] 3.0 mg/dL 2.2 - 4 .6 mg/dL [facility] Potassium [Moles/Vol] 4.3 mmol/L 3.5 - 5.0 mmol/L [facility] Sodium [Moles/Vol] 141 mmol/L 135 - 145 mmol/L [facility] Urea nitrogen [Mass/Vol] 20 mg/dL 7 - 25 [facility] U[facility]/Creatinine [Mass ratio] 36 mg/mg [facility] CRP High sensitivity method [Mass/Vol] 27.13 mg/L High NINF - 10.00 mg/L [facility] Magnesium [Mass/Vol] 2.0 mg/dL 1.6 - 2 .6 mg/dL [facility] Laboratory - Chemistry and C hemistry - challengeOrdered By: Carson Perry on 07-16-2022 Calcium.ionized (Bld) [Moles/Vol] 4.72 mg/dL 4.60 - 5.30 mg/dL [facility] Laboratory - Coagulationon 1 09-16-2021 aPTT Coag (PPP) [Time] 33.2 s [facility] INR Coag (Bld) [Relative time] 1.1 {INR} 0.9 - 1.[address] [facility] PT Coag (PPP) [Time] 14.[address] [facility] Laboratory - Hematology and Cell countson 07-16-2022 Erythrocyte distribution width (RBC) [Ratio] 12.8 % 10.9 - 14.3 % [facility] Hematocrit (Bld) [Volume fraction] 37.3 % Low 39.6 - 48.8 % [facility] Hemoglobin (Bld) [Mass/Vol] 12.7 g/dL Low 13.4 - 16.8 g/dL [facility] MCH (RBC) [Entitic mass] 31.1 pg 26. 1 - 33.[address] [facility] MCHC (RBC) [Mass/Vol] 34.0 g/dL 31.9 - 36.5 g/dL [facility] MCV (RBC) [Entitic vol] 91.2 fL 79.0 - 94.[address] [facility] Platelet mean volume (Bld) [Entitic vol] 10.2 fL 8.7 - 12.[address] [facility] Platelets (Bld) [#/Vol] 216 10*3/uL 146 - 337 K/uL [facility] RBC (Bld) [#/Vol] 4.09 10*6/uL Low [facility] WBC (Bld) [#/Vol] 9.79 10*3/uL 3.73 - 10. 10 K/uL [facility] MAGNESIUMon 07-16-2022 Magnesium [Mass/Vol] 2.0 mg/dL Normal 1.6-2.6 [facility] Comment on above: Performed By: #### [facility] #### [facility] (DEFAULT) [address] [place] [id number] No Panel Informationon 07-16 Interpretation and review of laboratory results Abnormal [facility] Interpretation and review of laboratory results Abnormal [facility] Interpretation and review of laboratory results Normal [facility] Interpretation and review of laboratory results Abnormal [facility] No Panel InformationOrdered By: Carson Perry on 07-16-2022 Interpretation and review of laboratory results Normal [facility] PHOSPHATE, INORGANICon 07-16 Phosphorous 3.0 mg/dL Normal 2.2-4.6 [facility] Comment on above: Performed By: #### [facility] #### [facility] (DEFAULT) [address] [place] [id number] PT,INR,PTTon 07-16-2022 aPTT Coag (Bld) [Time] 33.2 s Normal 24.0-34.3 [facility] Comment on above: Performed By: #### X M #### [facility] (DEFAULT) [address] [place] [id number] INR Coag (PPP) [Relative time] 1.1 {INR} Normal 0.9-1.1 [facility] Comment on above: Performed By: #### X M #### [facility] (DEFAULT) [address] [place] [address] 79622 PT Coag (PPP) [Time] 14.3 s High 11.9-14.2 [facility] Comment on above: Performed By: #### X M #### [facility] (DEFAULT) [address] [place] [address] 46457 C REACTIVE PROTEINon CRP [Mass/Vol] 10.62 mg/L High <10.00 [facility] Comment on above: Performed By: #### L [id number] #### [facility] (DEFAULT) [address] [place] [address] 07855 CBC,PLATELETSon 07-15-2022 Hematocrit (Bld) [Volume fraction] 38.4 % Low 39.6-48.8 [facility] Comment on above: Performed By: #### H EMOGC #### [facility] (DEFAULT) [address] [place] [address] 70728 Hemoglobin (Bld) [Mass/Vol] 13.0 g/dL Low 13.4-16.8 [facility] Comment on above: Performed By: #### H EMOGC #### [facility] (DEFAULT) [address] [place] [address] 62591 MCV (RBC) [Entitic vol] 90.8 fL Normal 79.0-94.5 O [facility] Comment on above: Performed By: #### H EMOGC #### [facility] (DEFAULT) [address] [place] [address] 37158 Mean Cell Hgb 30.7 pg Normal 26.1-33.3 [facility] Comment on above: Performed By: #### H EMOGC #### [facility] (DEFAULT) [address] [place] [address] 96166 Mean Cell Hgb Conc 33.9 g/dL Normal 31.9-36.5 [facility] Comment on above: Performed By: #### H EMOGC #### [facility] (DEFAULT) [address] [place] [address] 75370 Platelet mean volume (Bld) [Entitic vol] 9.6 fL Normal 8.7-12.3 [facility] Comment on above: Performed By: #### H EMOGC #### [facility] (DEFAULT) [address] [place] [address] 37993 Platelets (Bld) [#/Vol] 227 10*3/uL Normal 146-337 [facility] Comment on above: Performed By: #### H EMOGC #### [place] (DEFAULT) [address] [place] [address] 88313 RBC (Bld) [#/Vol] 4.23 10*6/uL Low 4.38-5.83 [facility] Comment on above: Performed By: #### H EMOGC #### [facility] (DEFAULT) [address] [place] [address] 48323 RBC Distribution 12.8 % Normal 10.9-14.3 [facility] Comment on above: Performed By: #### H EMOGC #### [facility] (DEFAULT) [address] [place] [address] 13868 WBC (Bld) [#/Vol] 13.44 10*3/uL High 3.73-10.10 [facility] Comment on above: Performed By: #### H EMOGC #### [facility] (DEFAULT) [address] [place] [address] 61662 CHEM 7 (LYTES,BUN,CREA,GLUC) on 07-15-2022 Anion gap [Moles/Vol] 12 mmol/L Normal 7-17 [facility] Comment on above: Performed By: #### L [id number] #### [facility] (DEFAULT) [address] [place] [address] 57927 Chloride [Moles/Vol] 108 mmol/L Normal 98-108 [facility] Comment on above: Performed By: #### L [id number] #### [facility] (DEFAULT) [address] [place] [address] 06640 CO2 [Moles/Vol] 23 mmol/L Normal 21-31 [facility] Comment on above: Performed By: #### L [id number] #### [facility] (DEFAULT) [address] [place] [address] 35421 Creatinine [Mass/Vol] 0.76 mg/dL Normal 0.70-1.30 [facility] Comment on above: Performed By: #### L [id number] #### [facility] (DEFAULT) [address] [place] [address] 76883 eGFR, CKD-EPI, Male > Normal >=60 [facility] Comment on above: Result Comment: Repo rted eGFR is based on the CKD-EPI 2020 equation using creatinine, age, and sex. Performed By: #### L [email or web address] #### [facility] (DEFAULT) [address] [place] [address] 31549 Glucose [Mass/Vol] 110 mg/dL High 70-99 [facility] [place] Comment on above: Performed By: #### L [id number] #### [facility] (DEFAULT) [address] [place] [address] 49733 Osmolality [Osmolality] 295 mosm/kg Normal 278-305 [facility] Comment on above: Performed By: #### L [id number] #### [facility] (DEFAULT) [address] [place] [address] 61636 Potassium [Moles/Vol] 4.0 mmol/L Normal 3.5-5.0 [facility] Comment on above: Performed By: #### L [id number] #### [facility] (DEFAULT) [address] [place] [address] 18416 Sodium [Moles/Vol] 139 mmol/L Normal 135-145 [facility] [place] Comment on above: Performed By: #### L [id number] #### [facility] (DEFAULT) [address] [place] [address] Urea nitrogen [Mass/Vol] 22 mg/dL Normal 7-25 [facility] Comment on above: Performed By: #### L [id number] #### [facility] (DEFAULT) [address] [place] [address] Urea nitrogen/Creatinine [Mass ratio] 29 mg/mg Normal [facility] Comment on above: Performed By: #### L [email or web address] #### [facility] (DEFAULT) [address] [place] [address] CT HEAD WITHOUT CONTRASTon 1 09-15-2021 CT HEAD WITHOUT CONTRAST EXAM: CT HEAD W ITHOUT CONTRAST, 07/15/2022 2:34 AM COMPARISON: CT head July 14, 2022 CLINICAL INDICATIONS: 67 years Male Hydrocephalus; TECHNIQUE: A series of transaxial computerized tomographic images are obtained from base of skull to vertex without intravenous contrast. Axial whole-head and thin section posterior fossa slices are provided. Reformats: Sagittal and coronal. FINDINGS: Stable intraventricular hemorrhage extending into the lateral ventricles (left greater than right), third ventricle, and fourth ventricle. The ventricles are stable in size and appearance with the left lateral ventricle being slightly bigger than the right, with a prominent temporal horn which may reflect unchanged hydrocephalus. No significant abnormal densities are noted inside the brain parenchyma. There is no mass lesion or midline shift. There is no evidence of new or increasing hemorrhage. There is no extracerebral collection. Atherosclerotic calcifications of the major arteries at the skull base are present. Calvarium and skull base appear intact. Visualized sinuses show no air fluid levels. Visualized orbits are unremarkable. IMPRESSION: 1. Stable intraventricular hemorrhage without significant midline shift or mass effect. 2. Mild unchanged dilation of the temporal horns which may reflect mild stable hydrocephalus. I personally viewed and interpreted these images and I have reviewed and approved this report. Normal [facility] CT Head WO contraston 2021 IMPRESSION: 1. Stable intraventricular hemorrhage without significant midline shift or mass effect. 2. Mild unchanged dilation of the temporal horns which may reflect mild stable hydrocephalus. I personally viewed and interpreted these images and I have reviewed and approved this report. OLOGY EXAM: CT HEAD WITHOU T CONTRAST, 07/15/2022 2:34 AM COMPARISON: CT head July 14, 2022 CLINICAL INDICATIONS: 67 years Male Hydrocephalus; TECHNIQUE: A series of transaxial computerized tomographic images are obtained from base of skull to vertex without intravenous contrast. Axial whole-head and thin section posterior fossa slices are provided. Reformats: Sagittal and coronal. FINDINGS: Stable intraventricular hemorrhage extending into the lateral ventricles (left greater than right), third ventricle, and fourth ventricle. The ventricles are stable in size and appearance with the left lateral ventricle being slightly bigger than the right, with a prominent temporal horn which may reflect unchanged hydrocephalus. No significant abnormal densities are noted inside the brain parenchyma. There is no mass lesion or midline shift. There is no evidence of new or increasing hemorrhage. There is no extracerebral collection. Atherosclerotic calcifications of the major arteries at the skull base are present. Calvarium and skull base appear intact. Visualized sinuses show no air fluid levels. Visualized orbits are unremarkable. RADIOLOGY Jurgen Murphy MD - 07/15/2022 EXAM: CT HEAD WITHOUT CONTRAST, 07/15/2022 2:34 AM COMPARISON: CT head July 14, 2022 CLINICAL INDICATIONS: 67 years Male Hydrocephalus; TECHNIQUE: A series of transaxial computerized tomographic images are obtained from base of skull to vertex without intravenous contrast. Axial whole-head and thin section posterior fossa slices are provided. Reformats: Sagittal and coronal. FINDINGS: Stable intraventricular hemorrhage extending into the lateral ventricles (left greater than right), third ventricle, and fourth ventricle. The ventricles are stable in size and appearance with the left lateral ventricle being slightly bigger than the right, with a prominent temporal horn which may reflect unchanged hydrocephalus. No significant abnormal densities are noted inside the brain parenchyma. There is no mass lesion or midline shift. There is no evidence of new or increasing hemorrhage. There is no extracerebral collection. Atherosclerotic calcifications of the major arteries at the skull base are present. Calvarium and skull base appear intact. Visualized sinuses show no air fluid levels. Visualized orbits are unremarkable. IMPRESSION IMPRESSION: 1. Stable intraventricular hemorrhage without significant midline shift or mass effect. 2. Mild unchanged dilation of the temporal horns which may reflect mild stable hydrocephalus. I personally viewed and interpreted these images and I have reviewed and approved this report. [facility] Radiology Study observation (narrative) [facility] CT Head WO contrastOrdered B y: Jurgen Murphy on 07-15-[address] [facility] Work Phone: IONIZED CALCIUM, WHOLE BLOOD on 07-15-2022 ICA 4.47 mg/dL Low 4.60-5.30 [facility] Comment on above: Performed By: #### X M #### [facility] (DEFAULT) [address] [place] [address] Laboratory - Chemistry and C hemistry - challengeon 07-15-2022 Glucose [Mass/Vol] 118 mg/dL High 70 - 99 mg/dL [facility] Comment on above: Notified RNread back Phosphate [Mass/Vol] 2.3 mg/dL 2.2 - 4 .6 mg/dL [facility] Anion gap [Moles/Vol] 12 mmol/L 7 - 17 mmol/L [facility] Chloride [Moles/Vol] 108 mmol/L 98 - 10 8 mmol/L [facility] CO2 [Moles/Vol] 23 mmol/L 21 - 31 mmol/L [facility] Creatinine [Mass/Vol] 0.76 mg/dL 0.70 - 1.30 mg/dL [facility] CRP High sensitivity method [Mass/Vol] 10.62 mg/L High NINF - 10.00 mg/L [facility] GFR/1.73 sq M.predicted CKD-EPI (S/P/Bld) [Vol rate/Area] - PINF [facility] Comment on above: Reported eGFR is bas ed on the CKD-EPI 2020 equation using creatinine, age, and sex. Glucose [Mass/Vol] 110 mg/dL High 70 - 99 mg/dL [facility] Magnesium [Mass/Vol] 2.3 mg/dL 1.6 - 2 .6 mg/dL [facility] Osmolality Calc [Osmolality] [address] [facility] Potassium [Moles/Vol] 4.0 mmol/L 3.5 - 5.0 mmol/L [facility] Sodium [Moles/Vol] 139 mmol/L 135 - 145 mmol/L [facility] Urea nitrogen [Mass/Vol] 22 mg/dL 7 - 25 mg/d L [facility] Urea nitrogen/Creatinine [Mass ratio] 29 mg/mg [facility] Laboratory - Chemistry and C hemistry - challengeOrdered By: Zachary Esquivel on 07-15-2022 Calcium.ionized (Bld) [Moles/Vol] 4.47 mg/dL Low 4.60 - 5.30 mg/dL [facility] Laboratory - Hematology and Cell countson 07-15-2022 Erythrocyte distribution width (RBC) [Ratio] 12.8 % 10.9 - 14.3 % [facility] Hematocrit (Bld) [Volume fraction] 38.4 % Low 39.6 - 48.8 % [facility] Hemoglobin (Bld) [Mass/Vol] 13.0 g/dL Low 13.4 - 16.8 g/dL [facility] MCH (RBC) [Entitic mass] 30.7 pg 26. 1 - 33.[address] [facility] MCHC (RBC) [Mass/Vol] 33.9 g/dL 31.9 - 36.5 g/dL [facility] MCV (RBC) [Entitic vol] 90.8 fL 79.0 - 94.[address] [facility] Platelet mean volume (Bld) [Entitic vol] 9.6 fL 8.7 - 12.[address] [facility] Platelets (Bld) [#/Vol] 227 10*3/uL 146 - 337 K/uL [facility] RBC (Bld) [#/Vol] 4.23 10*6/uL Low [facility] WBC (Bld) [#/Vol] 13.44 10*3/uL High 3.73 - 10 .10 K/uL [facility] MAGNESIUMon 07-15-2022 Magnesium [Mass/Vol] 2.3 mg/dL Normal 1.6-2.6 [facility] Comment on above: Performed By: #### L [email or web address] #### [facility] (DEFAULT) [address] [place] [id number] No Panel Informationon 07-15 Interpretation and review of laboratory results Abnormal [facility] POC Sample Type CAPBL [facility] Test performed at address of the patient encounter. [facility] Interpretation and review of laboratory results Normal [facility] Interpretation and review of laboratory results Abnormal [facility] Interpretation and review of laboratory results Abnormal [facility] No Panel InformationOrdered By: Zachary Esquivel on 07-15-2022 Interpretation and review of laboratory results Abnormal [facility] PHOSPHATE, INORGANICon 07-15 Phosphorous 2.3 mg/dL Normal 2.2-4.6 [facility] Comment on above: Performed By: #### L ABSARS1 #### [facility] (DEFAULT) [address] [address] MARQUEZ MULTIPLEX SCRN WITH REFL EXon 07-14-2022 MARQUEZ Screen, Multiplex Negative Normal Negative [facility] Comment on above: Result Comment: This test includes the following antibodies: Centromere, Chromatin, DsDNA, Jo1, Ribosomal P, ROUTE INSPECTOR, ScL70, Sm/ROUTE INSPECTOR, Lamar, SSA and SSB. A negative screen result means each antibody listed is negative. If positive, the individual antibody results will be reflexed. Performed By: #### X M #### [facility] (DEFAULT) [address] [place] [address] C REACTIVE PROTEINon 022 CRP [Mass/Vol] 3.96 mg/L Normal <10.00 [facility] Comment on above: Performed By: #### X M #### [facility] (DEFAULT) [address] [place] [address] 73716 CRP [Mass/Vol] 1.67 mg/L Normal <10.00 [facility] Comment on above: Performed By: #### X M #### [facility] (DEFAULT) [address] [place] [address] CBC AND ELECTRONIC DIFFon Abs Eos Auto < Normal 0.00-0.48 [facility] Comment on above: Performed By: #### H EMOGC #### [facility] (DEFAULT) [address] [place] [address] Basophils (Bld) [#/Vol] 0.06 10*3/uL Normal 0.00-0.09 [facility] Comment on above: Performed By: #### H EMOGC #### [facility] (DEFAULT) [address] [address] Basophils/100 WBC (Bld) 0.4 % Normal [facility] Comment on above: Performed By: #### H EMOGC #### [facility] (DEFAULT) [address] [address] DIFF STATUS Electronic Differential Normal [facility] Comment on above: Performed By: #### H EMOGC #### [facility] (DEFAULT) [address] [address] Eosinophils/100 WBC (Bld) 0.1 % Normal [facility] Comment on above: Performed By: #### H EMOGC #### [facility] (DEFAULT) [address] [place] [address] Hematocrit (Bld) [Volume fraction] 43.0 % Normal 39.6-48.8 [facility] Comment on above: Performed By: #### H EMOGC #### [facility] (DEFAULT) [address] [place] [address] Hemoglobin (Bld) [Mass/Vol] 14.6 g/dL Normal 13.4-16.8 [facility] Comment on above: Performed By: #### H EMOGC #### [facility] (DEFAULT) [address] [address] Immature Grans % 0.3 % Normal [facility] Comment on above: Performed By: #### H EMOGC #### U [facility] (DEFAULT) [address] [place] [address] Immature Grans Absolute 0.04 K/uL Normal <=0.07 [facility] Comment on above: Performed By: #### H EMOGC #### [facility] (DEFAULT) [address] [address] Lymphocytes (Bld) [#/Vol] 2.29 10*3/uL Normal 0.83-3.57 [facility] Comment on above: Performed By: #### H EMOGC #### [facility] (DEFAULT) [address] [address] Lymphocytes/100 WBC (Bld) 16.3 % Normal [facility] Comment on above: Performed By: #### H EMOGC #### [facility] (DEFAULT) [address] [address] MCV (RBC) [Entitic vol] 90.3 fL Normal 79.0-94.5 [facility] Comment on above: Performed By: #### H EMOGC #### [facility] (DEFAULT) [address] [address] Mean Cell Hgb 30.7 pg Normal 26.1-33.3 [facility] Comment on above: Performed By: #### H EMOGC #### [facility] (DEFAULT) [address] [address] Mean Cell Hgb Conc 34.0 g/dL Normal 31.9-36.5 [facility] Comment on above: Performed By: #### H EMOGC #### [facility] (DEFAULT) [address] [address] Monocytes (Bld) [#/Vol] 0.95 10*3/uL High 0.24-0.93 [facility] Comment on above: Performed By: #### H EMOGC #### [place] [facility] (DEFAULT) [address] [place] [address] Monocytes/100 WBC (Bld) 6.8 % Normal [facility] Comment on above: Performed By: #### H EMOGC #### OSArabella [facility] (DEFAULT) [address] [place] [address] Nucleated RBC 0.0 /100 WBC Normal <=0.2 [facility] Comment on above: Performed By: #### H EMOGC #### [place] [facility] (DEFAULT) [address] [place] [address] Platelet mean volume (Bld) [Entitic vol] 9.7 fL Normal 8.7-12.3 [facility] Comment on above: Performed By: #### H EMOGC #### [place] [facility] (DEFAULT) [address] [place] [address] Platelets (Bld) [#/Vol] 260 10*3/uL Normal 146-337 [facility] Comment on above: Performed By: #### H EMOGC #### [place] [facility] (DEFAULT) [address] [place] [address] RBC (Bld) [#/Vol] 4.76 10*6/uL Normal 4.38-5.83 [facility] Comment on above: Performed By: #### H EMOGC #### [place] [facility] (DEFAULT) [address] [place] [address] 63658 RBC Distribution 12.7 % Normal 10.9-14.3 [facility] Comment on above: Performed By: #### H EMOGC #### OSArabella [facility] (DEFAULT) [address] [place] [address] Segs + Bands Auto 76.1 % Normal [facility] Comment on above: Performed By: #### H EMOGC #### [place] [facility] (DEFAULT) [address] [place] [address] Segs + Bands,Absolute Auto 10.68 K/uL High 1.57-6.19 [facility] Comment on above: Performed By: #### H EMOGC #### [place] [facility] (DEFAULT) [address] [place] [address] WBC (Bld) [#/Vol] 14.04 10*3/uL High 3.73-10.10 [facility] Comment on above: Performed By: #### H EMOGC #### [place] [facility] (DEFAULT) [address] [place] [address] CBC,PLATELETSon 07-14-2022 Hematocrit (Bld) [Volume fraction] 40.2 % Normal 39.6-48.8 [facility] Comment on above: Performed By: #### H EMOKELSIE #### [facility] (DEFAULT) [address] [place] [address] Hemoglobin (Bld) [Mass/Vol] 13.6 g/dL Normal 13.4-16.8 [facility] Comment on above: Performed By: #### H EMOGC #### [facility] (DEFAULT) [address] [place] [address] MCV (RBC) [Entitic vol] 91.0 fL Normal 79.0-94.5 [facility] Comment on above: Performed By: #### H EMOGC #### [facility] (DEFAULT) [address] [place] [address] Mean Cell Hgb 30.8 pg Normal 26.1-33.3 [facility] Comment on above: Performed By: #### H EMOGC #### [facility] (DEFAULT) [address] [place] [address] Mean Cell Hgb Conc 33.8 g/dL Normal 31.9-36.5 [facility] Comment on above: Performed By: #### H EMOGC #### [facility] (DEFAULT) [address] [place] [address] Platelet mean volume (Bld) [Entitic vol] 9.9 fL Normal 8.7-12.3 [facility] Comment on above: Performed By: #### H EMOGC #### U [facility] (DEFAULT) [address] [place] [address] Platelets (Bld) [#/Vol] 242 10*3/uL Normal 146-337 [facility] Comment on above: Performed By: #### H EMOGC #### U [facility] (DEFAULT) [address] [place] [address] 21342 RBC (Bld) [#/Vol] 4.42 10*6/uL Normal 4.38-5.83 [facility] Comment on above: Performed By: #### H EMOGC #### [facility] (DEFAULT) [address] [place] [address] RBC Distribution 12.9 % Normal 10.9-14.3 [facility] Comment on above: Performed By: #### H EMOGC #### [facility] (DEFAULT) [address] [place] [address] WBC (Bld) [#/Vol] 13.06 10*3/uL High 3.73-10.10 [facility] Comment on above: Performed By: #### H EMO #### [facility] (DEFAULT) [address] [place] [address] CHEM 7 (LYTES,BUN,CREA,GLUC) on 07-14-2022 Anion gap [Moles/Vol] 14 mmol/L Normal 7-17 [facility] Comment on above: Performed By: #### X M #### [facility] (DEFAULT) [address] [place] [address]363 Chloride [Moles/Vol] 105 mmol/L Normal 98-108 [facility] Comment on above: Performed By: #### X M #### [facility] (DEFAULT) [address] [place] [address] 35429 CO2 [Moles/Vol] 23 mmol/L Normal 21-31 [facility] Comment on above: Performed By: #### X M #### U [facility] (DEFAULT) [address] [place] [address] 10668 Creatinine [Mass/Vol] 0.78 mg/dL Normal 0.70-1.30 [facility] Comment on above: Performed By: #### X M #### [facility] (DEFAULT) [address] [place] [address] eGFR, CKD-EPI, Male > Normal >=60 [facility] Comment on above: Result Comment: Repo rted eGFR is based on the CKD-EPI 2020 equation using creatinine, age, and sex. Performed By: #### X M #### U [facility] (DEFAULT) [address] [place] [address] Glucose [Mass/Vol] 135 mg/dL High 70-99 [facility] Comment on above: Performed By: #### X M #### U [facility] (DEFAULT) [address] [place] [address]999 Osmolality [Osmolality] 292 mosm/kg Normal 278-305 [facility] Comment on above: Performed By: #### X M #### [facility] (DEFAULT) [address] [place] [address] Potassium [Moles/Vol] 3.9 mmol/L Normal 3.5-5.0 [facility] Comment on above: Performed By: #### X M #### [facility] (DEFAULT) [address] [place] [address] 78120 Sodium [Moles/Vol] 138 mmol/L Normal 135-145 [facility] Comment on above: Performed By: #### X M #### [facility] (DEFAULT) [address] [place] [address] 96387 Urea nitrogen [Mass/Vol] 14 mg/dL Normal 7-25 [facility] Comment on above: Performed By: #### X M #### [facility] (DEFAULT) [address] [place] [address] 31192 Urea nitrogen/Creatinine [Mass ratio] 18 mg/mg Normal [facility] Comment on above: Performed By: #### X M #### U [facility] (DEFAULT) [address] [place] [address] CHM 7 - EDon 07-14-2022 Anion gap [Moles/Vol] 13 mmol/L Normal 7-17 [facility] Comment on above: Performed By: #### X M #### [facility] (DEFAULT) [address] [place] [address] Chloride [Moles/Vol] 104 mmol/L Normal 98-108 [facility] Comment on above: Performed By: #### X M #### [facility] (DEFAULT) [address] [place] [address] 39829 CO2 [Moles/Vol] 23 mmol/L Normal 21-31 [facility] Comment on above: Performed By: #### X M #### [facility] (DEFAULT) [address] [place] [address]82 Creatinine [Mass/Vol] 0.72 mg/dL Normal 0.70-1.30 [facility] Comment on above: Performed By: #### X M #### [facility] (DEFAULT) [address] [place] [address]172 eGFR, CKD-EPI, Male > Normal >=60 [facility] Comment on above: Result Comment: Repo rted eGFR is based on the CKD-EPI 2020 equation using creatinine, age, and sex. Performed By: #### X M #### [facility] (DEFAULT) [address] [place] [address]223 Glucose [Mass/Vol] 137 mg/dL High 70-99 [facility] Comment on above: Performed By: #### X M #### [facility] (DEFAULT) [address] [place] [address]23 Osmolality [Osmolality] 288 mosm/kg Normal 278-305 [facility] Comment on above: Performed By: #### X M #### [facility] (DEFAULT) [address] [place] [address] Potassium [Moles/Vol] 3.9 mmol/L Normal 3.5-5.0 [facility] Comment on above: Performed By: #### X M #### [facility] (DEFAULT) [address] [place] [address] 97297 Sodium [Moles/Vol] 136 mmol/L Normal 135-145 [facility] Comment on above: Performed By: #### X M #### [facility] (DEFAULT) [address] [place] [address] 27941 Urea nitrogen [Mass/Vol] 14 mg/dL Normal 7-25 [facility] Comment on above: Performed By: #### X M #### [facility] (DEFAULT) [address] [place] [address] 05253 Urea nitrogen/Creatinine [Mass ratio] 19 mg/mg Normal [facility] Comment on above: Performed By: #### X M #### [facility] (DEFAULT) [address] [place] [address] ANGIO BRAIN/NECKon 2021 CT ANGIO BRAIN/NECK EXAM: CT ANGIO BRAIN/NECK, 07/13/2022 23:43 PM COMPARISON: No previous study is available for comparison. CLINICAL INDICATIONS: 67 years Male Suspected Stroke; RELEVANT CLINICAL HISTORY: TECHNIQUE: A series of transaxial multislice computerized tomographic images are obtained with helical technique from top of aortic arch to vertex following bolus intravenous administration of nonionic contrast. Axial thin section source images, as well as sagittal and coronal thin section reformats, were provided at the scanner. Additional multiplanar and 3D reconstructions were provided. CONTRAST: iohexol (OMNIPAQUE) 350 MG/ML injection 1-171 mL; Route of Administration: Intravenous; Dose: 100 mL. FINDINGS: CTA NECK: Aortic Arch: Separate origin of the left vertebral artery directly from the aortic arch. Mild atherosclerotic calcifications of the aortic arch and its major branching vessels without origin stenosis. Carotid Arteries: The right common and external carotid arteries are normal in caliber without evidence of dissection or pseudoaneurysm. The right internal carotid artery is occluded at its origin and reconstitutes at the supraclinoid segment. The left common and external carotid arteries are normal in caliber without evidence of dissection or pseudoaneurysm. The left internal carotid artery is occluded at its origin and reconstitutes at the cavernous segment. Vertebral Arteries: Right vertebral artery shows no significant stenosis at the origin or elsewhere. Left vertebral artery shows no significant stenosis at the origin or elsewhere. CTA INTRACRANIAL: Reconstitution of the right ICA at the supraclinoid segment which remains diminutive in caliber. Reconstitution of the left ICA at the cavernous segment which remains diminutive in caliber. Diminutive caliber and multifocal stenoses of the bilateral MCAs and ACAs. Posterior cerebral arteries appear grossly unremarkable. Numerous tiny vessels extending from the proximal MCA, CHIKI, and BOXING PROMOTER bilaterally. Intracranial vertebral arteries are unremarkable. Basilar artery is unremarkable. No aneurysm or vascular malformation is identified. No evidence of a spot sign or feeding vessel into the intraventricular hemorrhage. Nonvascular findings: * Redemonstration of extensive intraventricular hemorrhage. * Paraseptal emphysematous changes of the bilateral apical lungs. * Multilevel degenerative changes of the visualized spine, with grade 1 anterolisthesis of C6 on C7. IMPRESSION: 1. Occlusion of bilateral internal carotid arteries. 2. 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 3. No evidence of spot sign or feeding vessel into the intraventricular hemorrhage. No active hemorrhage or aneurysm. A Critical finding has been discussed with Kristie Arredondo DO with a read back to Lata Wasserman DO on 07/14/2022 12:01 AM . I personally viewed and interpreted these images and I have reviewed and approved this report. Normal [facility] CT HEAD WITHOUT CONTRASTon 1 09-14-2021 CT HEAD WITHOUT CONTRAST EXAM: CT HEAD W ITHOUT CONTRAST, 07/14/2022 1:13 PM COMPARISON: Comparison is made to previous exam earlier the same day. CLINICAL INDICATIONS: 67 years Male Post DCA; TECHNIQUE: A series of transaxial computerized tomographic images are obtained from base of skull to vertex without intravenous contrast. Axial whole-head and thin section posterior fossa slices are provided. Reformats: Sagittal and coronal. FINDINGS: Again noted is intraventricular hemorrhage involving the lateral ventricles left greater than right and the third and fourth ventricles. Ventricular size is stable however the left lateral ventricle is larger than the right and there is mild dilatation of the temporal horns which may reflect mild hydrocephalus. No significant areas of abnormal increased or decreased density are noted within the brain parenchyma. There is no extracerebral collection. Posterior fossa is otherwise within normal limits. Calvarium and skull base appear intact. Visualized sinuses show no air fluid levels. Visualized orbits are unremarkable. IMPRESSION: Stable examination as compared to earlier the same day. Stable intraventricular hemorrhage and ventricular size with mild dilatation of the temporal horns which may reflect mild/early hydrocephalus. Normal [facility] CT HEAD WITHOUT CONTRAST EXAM: CT HEAD W ITHOUT CONTRAST, 07/14/2022 6:15 AM COMPARISON: Prior day CT head CLINICAL INDICATIONS: 67 years Male IVH follow-up; RELEVANT CLINICAL HISTORY: To be scheduled 6 hours from initial Head CT.; TECHNIQUE: A series of transaxial computerized tomographic images are obtained from base of skull to vertex without intravenous contrast. Axial whole-head and thin section posterior fossa slices are provided. Reformats: Sagittal and coronal. FINDINGS: Unchanged appearance of intraventricular hemorrhage from the bilateral lateral ventricles to the basal cisterns. No hydrocephalus or evidence of obstruction. There is no mass lesion or midline shift. There is no evidence of acute large territory infarct or new areas of hemorrhage. Posterior fossa is within normal limits. Calvarium and skull base appear intact. Visualized sinuses show no air fluid levels. Visualized orbits are unremarkable. IMPRESSION: Stable intraventricular hemorrhage of the bilateral lateral ventricles to the basal cistern without evidence of hydrocephalus or obstruction. No new areas of hemorrhage. I personally viewed and interpreted these images and I have reviewed and approved this report. Normal [facility] CT Head WO contraston 2021 IMPRESSION: Stable examination as compared to earlier the same day. Stable intraventricular hemorrhage and ventricular size with mild dilatation of the temporal horns which may reflect mild/early hydrocephalus. OLOGY EXAM: CT HEAD WITHOU T CONTRAST, 07/14/2022 1:13 PM COMPARISON: Comparison is made to previous exam earlier the same day. CLINICAL INDICATIONS: 67 years Male Post DCA; TECHNIQUE: A series of transaxial computerized tomographic images are obtained from base of skull to vertex without intravenous contrast. Axial whole-head and thin section posterior fossa slices are provided. Reformats: Sagittal and coronal. FINDINGS: Again noted is intraventricular hemorrhage involving the lateral ventricles left greater than right and the third and fourth ventricles. Ventricular size is stable however the left lateral ventricle is larger than the right and there is mild dilatation of the temporal horns which may reflect mild hydrocephalus. No significant areas of abnormal increased or decreased density are noted within the brain parenchyma. There is no extracerebral collection. Posterior fossa is otherwise within normal limits. Calvarium and skull base appear intact. Visualized sinuses show no air fluid levels. Visualized orbits are unremarkable. RADIOLOGY Scott Ramírez MD - 07/14/2022 EXAM: CT HEAD WITHOUT CONTRAST, 07/14/2022 1:13 PM COMPARISON: Comparison is made to previous exam earlier the same day. CLINICAL INDICATIONS: 67 years Male Post DCA; TECHNIQUE: A series of transaxial computerized tomographic images are obtained from base of skull to vertex without intravenous contrast. Axial whole-head and thin section posterior fossa slices are provided. Reformats: Sagittal and coronal. FINDINGS: Again noted is intraventricular hemorrhage involving the lateral ventricles left greater than right and the third and fourth ventricles. Ventricular size is stable however the left lateral ventricle is larger than the right and there is mild dilatation of the temporal horns which may reflect mild hydrocephalus. No significant areas of abnormal increased or decreased density are noted within the brain parenchyma. There is no extracerebral collection. Posterior fossa is otherwise within normal limits. Calvarium and skull base appear intact. Visualized sinuses show no air fluid levels. Visualized orbits are unremarkable. IMPRESSION IMPRESSION: Stable examination as compared to earlier the same day. Stable intraventricular hemorrhage and ventricular size with mild dilatation of the temporal horns which may reflect mild/early hydrocephalus. [facility] Radiology Study observation (narrative) [facility] CT Head WO contrastOrdered B y: Scott Ramí[facility]20[facility] CT STROKE HEAD-STROKE ALERT ONLYon 07-14-2022 CT STROKE HEAD-STROKE ALERT ONLY EXAM: CT STROKE HEAD-STROKE ALERT ONLY, 07/13/2022 11:40 PM COMPARISON: Same day CT head CLINICAL INDICATIONS: 67 years Male Suspected Stroke; RELEVANT CLINICAL HISTORY: TECHNIQUE: A series of transaxial computerized tomographic images are obtained from base of skull to vertex without intravenous contrast. Axial whole-head and thin section posterior fossa slices are provided. Reformats: Sagittal and coronal. FINDINGS: Similar appearance of intraventricular hemorrhage extending from the bilateral lateral ventricles into the basal cisterns, which remain normal in size and configuration. No evidence of hydrocephalus. There is no mass lesion or midline shift. There is no evidence of acute large territory infarct. There is no extracerebral collection. Posterior fossa is within normal limits. Calvarium and skull base appear intact. IMPRESSION: Similar appearance of intraventricular hemorrhage of the bilateral lateral ventricles and the basal cistern. No evidence of hydrocephalus. Findings were discussed with Kristie Arredondo DO at 11:45 PM on July 13, 2022. I personally viewed and interpreted these images and I have reviewed and approved this report. Normal [facility] HEMOGLOBIN A1Con 07-14-2022 Glucose [Mass/Vol] 117 mg/dL Normal [facility] Comment on above: Performed By: #### H [facility] #### U [facility] (DEFAULT) [address] [place] [address] HbA1c (Bld) [Mass fraction] 5.7 % High 4.7-5.6 [facility] Comment on above: Performed By: #### H [facility] #### [facility] (DEFAULT) [address] [place] [address] HEPATIC FUNCTION PANELon Albumin [Mass/Vol] 4.2 g/dL Normal 3.5-5.0 [facility] Comment on above: Performed By: #### X M #### [facility] (DEFAULT) [address] [place] [address] 11749 ALP [Catalytic activity/Vol] 57 U/L Normal 32-126 [facility] Comment on above: Performed By: #### X M #### [facility] (DEFAULT) [address] [place] [address] ALT [Catalytic activity/Vol] 16 U/L Normal 10-52 [facility] Comment on above: Performed By: #### X M #### [facility] (DEFAULT) [address] [place] [address] AST [Catalytic activity/Vol] 18 U/L Normal 10-39 [facility] Comment on above: Performed By: #### X M #### U [facility] (DEFAULT) [address] [place] [address] Bilirubin [Mass/Vol] 1.5 mg/dL High <1.5 [facility] Comment on above: Performed By: #### X M #### [facility] (DEFAULT) [address] [place] [address] Bilirubin.indirect [Mass/Vol] 0.2 mg/dL Normal <0.3 [facility] Comment on above: Performed By: #### X M #### [facility] (DEFAULT) [address] [place] [address] Protein [Mass/Vol] 7.0 g/dL Normal 6.4-8.3 [facility] [place] Comment on above: Performed By: #### X M #### [facility] (DEFAULT) [address] [place] [address]258 HIGH SENSITIVITY TROPONIN I - SINGLE ORDERon 07-14-2022 hs-Troponin I 3 ng/L Normal <53 [facility] Comment on above: Order Comment: Acute Coronary Syndrome (ACS): Initial Evaluation and Management:[email or web address] Performed By: #### X M #### [facility] (DEFAULT) [address] [place] [address]602 IONIZED CALCIUM, WHOLE BLOOD on 07-14-2022 ICA 4.49 mg/dL Low 4.60-5.30 [facility] Comment on above: Performed By: #### U RIN #### [facility] (DEFAULT) [address] [place] [address] 84183 LIPID PANEL WITH REFLEX TO M MARGOT LDLon 07-14-2022 Calculated LDL Cholesterol 131 mg/dL High 0-99 [facility] Comment on above: Result Comment: [<10 0 mg/dL: Optimal] [100-129 mg/dL: Near Optimal] [130-159 mg/dL: Borderline High] [160-189 mg/dL: High] [>189 mg/dL: Very High] Performed By: #### H EMO #### [facility] (DEFAULT) [address] [place] [address]12 Cholesterol [Mass/Vol] 195 mg/dL Normal <200 [facility] Comment on above: Result Comment: [<20 0 mg/dL: Desirable] [200-239 mg/dL: Borderline High] [>239 mg/dL: High] Performed By: #### H EMO #### [facility] (DEFAULT) [address] [place] [address] 40854 Cholesterol in HDL [Mass/Vol] 51 mg/dL Normal >=40 [facility] Comment on above: Result Comment: [<40 mg/dL: Low (High Risk)] [>59 mg/dL: High (Low Risk)] Performed By: #### H EMOGC #### [facility] (DEFAULT) [address] [place] [address] 89305 Non HDL Cholesterol 144 mg/dL High <130 [facility] Comment on above: Performed By: #### H EMOGC #### [facility] (DEFAULT) [address] [place] [address] 52484 Total Cholesterol/HDL Ratio 3.8 Normal <4.5 [facility] Comment on above: Performed By: #### [facility] #### [facility] (DEFAULT) [address] [place] [address] Triglyceride [Mass/Vol] 63 mg/dL Normal <150 [facility] [place] Comment on above: Result Comment: [<15 0 mg/dL: Desirable] [150-199 mg/dL: Borderline] [200-499 mg/dL: High] [>500 mg/dL: Very High] Performed By: #### [facility] #### [facility] (DEFAULT) [address] [place] [address] Laboratory - Chemistry and C hemistry - challengeon 07-14-2022 CRP High sensitivity method [Mass/Vol] 3.96 mg/L NINF - 10.00 mg/L [facility] TSH Qn 0.723 m[IU]/L [facility] CRP High sensitivity method [Mass/Vol] 1.67 mg/L NINF - 10.00 mg/L [facility] Anion gap [Moles/Vol] 14 mmol/L 7 - 17 mmol/L [facility] Chloride [Moles/Vol] 105 mmol/L 98 - 10 8 mmol/L [facility] CO2 [Moles/Vol] 23 mmol/L 21 - 31 mmol/L [facility] Creatinine [Mass/Vol] 0.78 mg/dL 0.70 - 1.30 mg/dL [facility] GFR/1.73 sq M.predicted CKD-EPI (S/P/Bld) [Vol rate/Area] - PINF [facility] Comment on above: Reported eGFR is bas ed on the CKD-EPI 2020 equation using creatinine, age, and sex. Glucose [Mass/Vol] 135 mg/dL High 70 - 99 mg/dL [facility] Osmolality Calc [Osmolality] [address] [facility] Phosphate [Mass/Vol] 2.8 mg/dL 2.2 - 4 .6 mg/dL [facility] Potassium [Moles/Vol] 3.9 mmol/L 3.5 - 5.0 mmol/L [facility] Sodium [Moles/Vol] 138 mmol/L 135 - 145 mmol/L [facility] Urea nitrogen [Mass/Vol] 14 mg/dL 7 - 25 mg/d L [facility] Urea nitrogen/Creatinine [Mass ratio] 18 mg/mg [facility] Magnesium [Mass/Vol] 1.9 mg/dL 1.6 - 2 .6 mg/dL [facility] Laboratory - Chemistry and C hemistry - challengeOrdered By: Oj May on 07-14-2022 Calcium.ionized (Bld) [Moles/Vol] 4.49 mg/dL Low 4.60 - 5.30 mg/dL [facility] Laboratory - Coagulationon 1 09-14-2021 aPTT Coag (PPP) [Time] 33.6 s [facility] INR Coag (Bld) [Relative time] 1.1 {INR} 0.9 - 1.[address] [facility] PT Coag (PPP) [Time] 14.[address] [facility] Laboratory - Hematology and Cell countson 07-14-2022 ESR (Bld) [Velocity] 8 mm/h NINF [facility] Erythrocyte distribution width (RBC) [Ratio] 12.9 % 10.9 - 14.3 % [facility] Hematocrit (Bld) [Volume fraction] 40.2 % 39.6 - 48.8 % [facility] Hemoglobin (Bld) [Mass/Vol] 13.6 g/dL 13.4 - 16.8 g/dL [facility] MCH (RBC) [Entitic mass] 30.8 pg 26. 1 - 33.[address] [facility] MCHC (RBC) [Mass/Vol] 33.8 g/dL 31.9 - 36.5 g/dL [facility] MCV (RBC) [Entitic vol] 91.0 fL 79.0 - 94.[address] [facility] Platelet mean volume (Bld) [Entitic vol] 9.9 fL 8.7 - 12.[address] [facility] Platelets (Bld) [#/Vol] 242 10*3/uL 146 - 337 K/uL [facility] RBC (Bld) [#/Vol] 4.42 10*6/uL [facility] WBC (Bld) [#/Vol] 13.06 10*3/uL High 3.73 - 10 .10 K/uL [facility] Laboratory - Serology - non- microon 07-14-2022 Nuclear Ab Ql (S) Negative Negative [facility] Comment on above: This test includes t he following antibodies: Centromere, Chromatin, DsDNA, Jo1, Ribosomal P, ROUTE INSPECTOR, ScL70, Sm/ROUTE INSPECTOR, Lamar, SSA and SSB. A negative screen result means each antibody listed is negative. If positive, the individual antibody results will be reflexed. Laboratory - Serology - non- microOrdered By: Brook Willard on 07-14-2022 Rheumatoid factor Qn NINF [facility] MAGNESIUMon 07-14-2022 Magnesium [Mass/Vol] 1.9 mg/dL Normal 1.6-2.6 [facility] Comment on above: Performed By: #### X M #### [facility] (DEFAULT) [address] [place] [address] No Panel InformationOrdered By: Bayron Alcazar on 07-14-2022 Interpretation and review of laboratory results Normal [facility] Methicillin Resistant S. Aureus By Pcr Negative Negative [facility] Staphylococcus Aureus By Pcr Negative Negative [facility] This test was performed using a real time PCR assay. Results should be interpreted in conjunction with other clinical and laboratory findings. A positive result does not necessarily indicate the presence of viable organism. This test should not be used as a test of cure. For E-swab specimens, this test was developed and its performance characteristics determined by the Clinical Microbiology Laboratory at [facility]. It has not been cleared or approved by the FDA.The laboratory is regulated under CLIA as qualified to perform high-complexity testing. This test is used for clinical purposes. It should not be regarded as investigational or for research. [facility] No Panel Informationon 07-14 Interpretation and review of laboratory results Normal [facility] Interpretation and review of laboratory results Normal [facility] Interpretation and review of laboratory results Normal [facility] Interpretation and review of laboratory results Normal [facility] Interpretation and review of laboratory results Normal [facility] ABO/RH(D) TYPE Positive [facility] Interpretation and review of laboratory results Abnormal [facility] Interpretation and review of laboratory results Normal [facility] Interpretation and review of laboratory results Normal [facility] Interpretation and review of laboratory results Abnormal [facility] No Panel InformationOrdered By: Brook Willard on 07-14-2022 Interpretation and review of laboratory results Normal [facility] No Panel InformationOrdered By: Oj May on 07-14-2022 Interpretation and review of laboratory results Abnormal [facility] PHOSPHATE, INORGANICon 07-14 Phosphorous 2.8 mg/dL Normal 2.2-4.6 [facility] Comment on above: Performed By: #### X M #### [facility] (DEFAULT) [address] [place] [address]2010 PT,INR,PTTon 07-14-2022 aPTT Coag (Bld) [Time] 33.6 s Normal 24.0-34.3 [facility] Comment on above: Performed By: #### H EMOGC #### [facility] (DEFAULT) [address] [place] [address] INR Coag (PPP) [Relative time] 1.1 {INR} Normal 0.9-1.1 [facility] Comment on above: Performed By: #### H EMOGC #### [facility] (DEFAULT) [address] [place] [address] 86490 PT Coag (PPP) [Time] 14.0 s Normal 11.9-14.2 [facility] Comment on above: Performed By: #### H EMO #### [facility] (DEFAULT) [address] [place] [address] 81819 PTINR-STROKEon 07-14-2022 INR Coag (PPP) [Relative time] 1.1 {INR} Normal 0.9-1.1 [facility] Comment on above: Performed By: #### X M #### [facility] (DEFAULT) [address] [place] [address] 01830 PT Coag (PPP) [Time] 13.8 s Normal 11.9-14.2 [facility] Comment on above: Performed By: #### X M #### U [facility] (DEFAULT) [address] [place] [address] 01074 PTTon 07-14-2022 aPTT Coag (Bld) [Time] 34.3 s Normal 24.0-34.3 [facility] Comment on above: Performed By: #### X M #### [facility] (DEFAULT) [address] [place] [address] 84486 RHEUMATOID FACTORon 07-14-20 22 Rheumatoid Factor <10 Normal <=14 [facility] Comment on above: Performed By: #### X M #### [facility] (DEFAULT) [address] [place] [address] 39757 SCREEN: MRSA/MSSAon 07-14-20 22 Methicillin Resistant S. Aureus By Pcr Negative Normal Negative [facility] Comment on above: Order Comment: Colle ct with an ESWAB - Anterior Nares for MRSA + MSSAThis test was performed using a real time PCR assay. Results should be interpreted in conjunction with other clinical and laboratory findings. A positive result does not necessarily indicate the presence of viable organism. This test should not be used as a test of cure. For E-swab specimens, this test was developed and its performance characteristics determined by the Clinical Microbiology Laboratory at [facility]. It has not been cleared or approved by the FDA.The laboratory is regulated under CLIA as qualified to perform high-complexity testing. This test is used for clinical purposes. It should not be regarded as investigational or for research. Performed By: #### X M #### U [facility] (DEFAULT) [address] [address] Staphylococcus Aureus By Pcr Negative Normal Negative [facility] Comment on above: Order Comment: Colle ct with an ESWAB - Anterior Nares for MRSA + MSSAThis test was performed using a real time PCR assay. Results should be interpreted in conjunction with other clinical and laboratory findings. A positive result does not necessarily indicate the presence of viable organism. This test should not be used as a test of cure. For E-swab specimens, this test was developed and its performance characteristics determined by the Clinical Microbiology Laboratory at [facility]. It has not been cleared or approved by the FDA.The laboratory is regulated under CLIA as qualified to perform high-complexity testing. This test is used for clinical purposes. It should not be regarded as investigational or for research. Performed By: #### X M #### [facility] (DEFAULT) [address] [address] SEDIMENTATION RATE, AUTOMATE Don 07-14-2022 ESR Westergren 8 mm/hr Normal <20 [facility] Comment on above: Performed By: #### U RIN #### U [facility] (DEFAULT) [address] [address] TOXICOLOGY SCREEN URINE - UD RGon 07-14-2022 Barbiturates Negative Normal Cutoff: 200 ng/mL [facility] Comment on above: Order Comment: For M edical Purposes Only. Nonforensic screen results are considered presumptive and no confirmatory testing will follow. Drugs are detected by immunoassay or Liquid Chromatography Mass Spectrometry (LC-MS/MS). The LC-MS/MS test was developed and its performance characteristics determined by the Toxicology Laboratory at [facility]. It has not been cleared or approved by the FDA. The laboratory is regulated under CLIA as qualified to perform high-complexity testing. This test is used for clinical purposes and should not be regarded as investigational or for research.The following drugs with their lowest level of detection in ng/ml(LOD) are included in this screen:6 Monoacetylmorphine(300), 7 Aminoflunitrazepam(25), 7 Aminoclonazepam(50),7 hydroxymitragynine (100),Alphahydroxymidazolam (200), Alphahydrozyalprazolam(200), Alprazolam(50), Amitriptyline(50), Amphetamine(250), Atenolol(500),Benzoylecgonine(50), Buprenorphine(100), Bupropion(25),Caffeine(14815),Chlordiazepoxide(50), Chlorpheniramine(100), Chlorpromazine(50), Citalopram(100), Clonazepam(200), Cocaine(25),Codeine(200), Cotinine(500),Desipramine(50), Desmethyldoxepin(100), Dextromethorphan(100), Diazepam(100), Dihydrocodeine(100), Diltazem(50), Diphenhydramine(100),Doxepin(100),EDDP/methadone(100), Ephedrine/Pseudoephedrine(100),Fentanyl(25),Flunitrazepam(100 ),Fluoxetine(200), Flurazepam(50),Gabapentin(1500), Haloperidol(25), Hydrocodone(100), Hydromorphone(200), Imipramine(50), Ketamine(25), Lidocaine(25),Lorazepam(100), Lysergide(LSD)(25),Maprotiline(200), MDA(250), MDMA(250), Meperidine(50),Midazolam (200),Methadone(50), Methamphetamine(500), Methylphenidate(50), Metoprolol(50), Morphine(200),Nalbuphine(50), Naloxone(200), Norbuprenorphine(300), Nordiazepam(100), Norfentanyl(50),Noroxycodone (100), Norpropoxyphene(50), Nortriptyline(50), Olanzapine(200),Oxazepam(200),Oxycodone(100),Oxymorphone(200) , Phencyclidine(PCP)(25), Pheniramine(25), Pregabalin(1500), Promethazine(50), Propoxyphene(100), Propanolol(50), Quetiapine(25), Quinidine(500), Ranitidine(500), Risperidone(100), Sertraline(50),Temazepam(100), Thioridazine(100), Tramadol(50), Trazodone(25), Triazolam(100), Trifluoperazine (100),Venlafaxine(50), Verapamil(100), Zolpidem(200) Performed By: #### X M #### [facility] (DEFAULT) [address] [place] [address] Cannabinoids Screen Ql (U) Positive Abnormal Cutoff: 50 ng/mL [facility] Comment on above: Order Comment: For M edical Purposes Only. Nonforensic screen results are considered presumptive and no confirmatory testing will follow. Drugs are detected by immunoassay or Liquid Chromatography Mass Spectrometry (LC-MS/MS). The LC-MS/MS test was developed and its performance characteristics determined by the Toxicology Laboratory at [facility]. It has not been cleared or approved by the FDA. The laboratory is regulated under CLIA as qualified to perform high-complexity testing. This test is used for clinical purposes and should not be regarded as investigational or for research.The following drugs with their lowest level of detection in ng/ml(LOD) are included in this screen:6 Monoacetylmorphine(300), 7 Aminoflunitrazepam(25), 7 Aminoclonazepam(50),7 hydroxymitragynine (100),Alphahydroxymidazolam (200), Alphahydrozyalprazolam(200), Alprazolam(50), Amitriptyline(50), Amphetamine(250), Atenolol(500),Benzoylecgonine(50), Buprenorphine(100), Bupropion(25),Caffeine(26536),Chlordiazepoxide(50), Chlorpheniramine(100), Chlorpromazine(50), Citalopram(100), Clonazepam(200), Cocaine(25),Codeine(200), Cotinine(500),Desipramine(50), Desmethyldoxepin(100), Dextromethorphan(100), Diazepam(100), Dihydrocodeine(100), Diltazem(50), Diphenhydramine(100),Doxepin(100),EDDP/methadone(100), Ephedrine/Pseudoephedrine(100),Fentanyl(25),Flunitrazepam(100 ),Fluoxetine(200), Flurazepam(50),Gabapentin(1500), Haloperidol(25), Hydrocodone(100), Hydromorphone(200), Imipramine(50), Ketamine(25), Lidocaine(25),Lorazepam(100), Lysergide(LSD)(25),Maprotiline(200), MDA(250), MDMA(250), Meperidine(50),Midazolam (200),Methadone(50), Methamphetamine(500), Methylphenidate(50), Metoprolol(50), Morphine(200),Nalbuphine(50), Naloxone(200), Norbuprenorphine(300), Nordiazepam(100), Norfentanyl(50),Noroxycodone (100), Norpropoxyphene(50), Nortriptyline(50), Olanzapine(200),Oxazepam(200),Oxycodone(100),Oxymorphone(200) , Phencyclidine(PCP)(25), Pheniramine(25), Pregabalin(1500), Promethazine(50), Propoxyphene(100), Propanolol(50), Quetiapine(25), Quinidine(500), Ranitidine(500), Risperidone(100), Sertraline(50),Temazepam(100), Thioridazine(100), Tramadol(50), Trazodone(25), Triazolam(100), Trifluoperazine (100),Venlafaxine(50), Verapamil(100), Zolpidem(200) Performed By: #### X M #### [facility] (DEFAULT) [address] [place] [address] Drugs Detected Urine Tox Cotinine Abnormal Negative [facility] Comment on above: Order Comment: For M edical Purposes Only. Nonforensic screen results are considered presumptive and no confirmatory testing will follow. Drugs are detected by immunoassay or Liquid Chromatography Mass Spectrometry (LC-MS/MS). The LC-MS/MS test was developed and its performance characteristics determined by the Toxicology Laboratory at [facility]. It has not been cleared or approved by the FDA. The laboratory is regulated under CLIA as qualified to perform high-complexity testing. This test is used for clinical purposes and should not be regarded as investigational or for research.The following drugs with their lowest level of detection in ng/ml(LOD) are included in this screen:6 Monoacetylmorphine(300), 7 Aminoflunitrazepam(25), 7 Aminoclonazepam(50),7 hydroxymitragynine (100),Alphahydroxymidazolam (200), Alphahydrozyalprazolam(200), Alprazolam(50), Amitriptyline(50), Amphetamine(250), Atenolol(500),Benzoylecgonine(50), Buprenorphine(100), Bupropion(25),Caffeine(21815),Chlordiazepoxide(50), Chlorpheniramine(100), Chlorpromazine(50), Citalopram(100), Clonazepam(200), Cocaine(25),Codeine(200), Cotinine(500),Desipramine(50), Desmethyldoxepin(100), Dextromethorphan(100), Diazepam(100), Dihydrocodeine(100), Diltazem(50), Diphenhydramine(100),Doxepin(100),EDDP/methadone(100), Ephedrine/Pseudoephedrine(100),Fentanyl(25),Flunitrazepam(100 ),Fluoxetine(200), Flurazepam(50),Gabapentin(1500), Haloperidol(25), Hydrocodone(100), Hydromorphone(200), Imipramine(50), Ketamine(25), Lidocaine(25),Lorazepam(100), Lysergide(LSD)(25),Maprotiline(200), MDA(250), MDMA(250), Meperidine(50),Midazolam (200),Methadone(50), Methamphetamine(500), Methylphenidate(50), Metoprolol(50), Morphine(200),Nalbuphine(50), Naloxone(200), Norbuprenorphine(300), Nordiazepam(100), Norfentanyl(50),Noroxycodone (100), Norpropoxyphene(50), Nortriptyline(50), Olanzapine(200),Oxazepam(200),Oxycodone(100),Oxymorphone(200) , Phencyclidine(PCP)(25), Pheniramine(25), Pregabalin(1500), Promethazine(50), Propoxyphene(100), Propanolol(50), Quetiapine(25), Quinidine(500), Ranitidine(500), Risperidone(100), Sertraline(50),Temazepam(100), Thioridazine(100), Tramadol(50), Trazodone(25), Triazolam(100), Trifluoperazine (100),Venlafaxine(50), Verapamil(100), Zolpidem(200) Performed By: #### X M #### [facility] (DEFAULT) [address] [place] [address] TSH W/FT4 REFLEXon 2 TSH 0.723 uIU/mL Normal 0.550-4.780 [facility] Comment on above: Performed By: #### X M #### [facility] (DEFAULT) [address] [place] [address] TYPE AND SCREENon 07-14-2022 ABO/RH(D) TYPE Positive Normal [facility] Comment on above: Performed By: #### X M #### [facility] (DEFAULT) [address] [place] [address] 77244 ABO/RH(D) TYPE Positive Normal [facility] Comment on above: Performed By: #### X M #### [facility] (DEFAULT) [address] [place] [address]66 URINE DIPSTICK; REFLEX MICRO SCOPY; REFLEX CULTURE PERFORMABLEon 07-14-2022 Appearance (U) Clear Normal Clear [facility] Comment on above: Performed By: #### X M #### [facility] (DEFAULT) [address] [place] [address] 81762 Blood Urine Trace Abnormal Negative [facility] Comment on above: Performed By: #### X M #### [facility] (DEFAULT) [address] [place] [address]16 Color (U) Yellow Normal Yellow [facility] Comment on above: Performed By: #### X M #### [facility] (DEFAULT) [address] [place] [address]7821 Glucose Ql (U) Negative Normal Negative [facility] Comment on above: Performed By: #### X M #### [facility] (DEFAULT) [address] [place] [address] 37981 Ketones Ql (U) Trace Abnormal Negative [facility] Comment on above: Performed By: #### X M #### [facility] (DEFAULT) [address] [place] [address]85 Leukocyte esterase Test strip Ql (U) Negative Normal Negative [facility] Comment on above: Performed By: #### X M #### [facility] (DEFAULT) [address] [place] [address]252 Nitrites Urine Negative Normal Negative [facility] Comment on above: Performed By: #### X M #### [facility] (DEFAULT) [address] [place] [address] 6[address]40 pH (U) 7.5 [pH] Abnormal 5.0-7.0 [facility] Comment on above: Performed By: #### X M #### [facility] (DEFAULT) [address] [place] [address] 21586 Protein Urine Negative Normal Negative [facility] Comment on above: Performed By: #### X M #### [facility] (DEFAULT) [address] [address] Specific [place] Urine 1.010 Normal >1.00 1-<1.03 5 [facility] Comment on above: Performed By: #### X M #### [facility] (DEFAULT) [address] [address] Urobilinogen Urine 0.2 E.U./dL Normal 0.2 E.U/d L, 1.0 E.U/dL [facility] Comment on above: Performed By: #### X M #### [facility] (DEFAULT) [address] [address] URINE MICROSCOPIC WITH REFLE X TO CULTUREon 07-14-2022 Bacteria ABSENT Normal ABSENT [facility] Comment on above: Performed By: #### X M #### [facility] (DEFAULT) [address] [address] RBC Urine 0-2 Normal 0-2 [facility] Comment on above: Performed By: #### X M #### [facility] (DEFAULT) [address] [address] Squamous/Epithelial Cells ABSENT Normal 1/hpf = 1+, 2-5/hpf = 2+, 0/hpf = 0+, ABSENT [facility] Comment on above: Performed By: #### X M #### [facility] (DEFAULT) [address] [address] WBC Urine 0-5 Normal 0-5 [facility] Comment on above: Performed By: #### X M #### [facility] (DEFAULT) [address] [address] Vital Signs Date Time Vital Sign Value Performing Clinician Facility 03-16-2025 17:120 Body height 182.88 cm Guanaco Crenshaw MD Work Phone: [facility] 03-16-2025 17:12-0400 Body mass index (BMI) [Ratio] 23.1 kg/m2 Guanaco Crenshaw MD Work Phone: [facility] 03-16-2025 17:12-0400 Body temperature 98.8 [degF] Guanaco Crenshaw MD Work Phone: [facility] 03-16-2025 17:12-0400 Body weight 77.56 kg Guanaco Crenshaw MD Work Phone: [facility] 03-16-2025 17:12-0400 Diastolic blood pressure 82 mm[Hg] Guanaco Crenshaw MD Work Phone: [phone] [address] 03-16-2025 17:12-0400 Heart rate 70 /min Guanaco Crenshaw MD Work Phone: [facility] 03-16-2025 17:12-0400 SaO2% (BldA) [Mass fraction] 96 % Guaanco Crenshaw MD Work Phone: [facility] 03-16-2025 17:12-0400 Systolic blood pressure 144 mm[Hg] Guanaco Crenshaw MD Work Phone: [facility] 09-05-2024 10:15-0500 SaO2% (BldA) [Mass fraction] 100 % Guanaco Crenshaw MD Work Phone: [facility] 09-05-2024 10:07-0500 Body height 185.42 cm Guanaco Crenshaw MD Work Phone: [facility] 09-05-2024 10:07-0500 Body mass index (BMI) [Ratio] 21.7 kg/m2 Guanaco Crenshaw MD Work Phone: [facility] 09-05-2024 10:07-0500 Body temperature 101.5 [degF] Guanaco Crenshaw MD Work Phone: [facility] 09-05-2024 10:07-0500 Body weight 74.61 kg Guanaco Crenshaw MD Work Phone: [facility] 09-05-2024 10:07-0500 Diastolic blood pressure 80 mm[Hg] Guanaco Crenshaw MD Work Phone: [facility] 09-05-2024 10:07-0500 Heart rate 97 /min Guanaco Crenshaw MD Work Phone: [facility] 09-05-2024 10:07-0500 Systolic blood pressure 118 mm[Hg] Guanaco Crenshaw MD Work Phone: [facility] 09-05-2024 10:01-0500 Respiratory rate 12 /min Guanaco Crenshaw MD Work Phone: [facility] 11-14-2023 11:20-0400 Body temperature 98.5 [degF] [facility] 11-14-2023 11:20-0400 Diastolic blood pressure 99 mm[Hg] [facility] 11-14-2023 11:20-0400 Heart rate 75 /min [facility] 11-14-2023 11:20-0400 Respiratory rate 16 /min [facility] 11-14-2023 11:20-0400 SaO2% (BldA) [Mass fraction] 99 % [facility] 11-14-2023 11:20-0400 Systolic blood pressure 158 mm[Hg] [facility] 11-14-2023 09:30-0400 Body height 185.42 cm [facility] 11-13-2023 04:08-0400 Body temperature 97.4 [degF] [facility] 11-13-2023 04:08-0400 Diastolic blood pressure 80 mm[Hg] [facility] 11-13-2023 04:08-0400 Heart rate 78 /min [facility] 11-13-2023 04:08-0400 Respiratory rate 18 /min [facility] 11-13-2023 04:08-0400 SaO2% (BldA) [Mass fraction] 96 % [facility] 11-13-2023 04:08-0400 Systolic blood pressure 173 mm[Hg] [facility] 11-13-2023 02:35-0400 Body height 185.42 cm [facility] 11-13-2023 02:35-0400 Body mass index (BMI) [Ratio] 23.5 kg/m2 [facility] 11-13-2023 02:35-0400 Body weight 80.8 kg [facility] 07-31-2022 08:13-0500 Body temperature 98.6 [degF] Idalmis Machado MD Work Phone: [facility] 07-31-2022 08:13-0500 Diastolic blood pressure 63 mm[Hg] Idalmis Machado MD Work Phone: [facility] 07-31-2022 08:13-0500 Heart rate 93 /min Idalmis Machado MD Work Phone: [facility] 07-31-2022 08:13-0500 Respiratory rate 20 /min Idalmis Machado MD Work Phone: [facility] 07-31-2022 08:13-0500 SaO2% (BldA) [Mass fraction] 95 % Idalmis Machado MD Work Phone: [facility] 07-31-2022 08:13-0500 Systolic blood pressure 133 mm[Hg] Idalmis Machado MD Work Phone: [facility] 07-25-2022 14:40-0500 Heart rate 80 /min Samir Marquez MD Work Phone: [facility] 07-25-2022 14:40-0500 Respiratory rate 17 /min Samir Marquez MD Work Phone: [facility] 07-25-2022 11:41-0500 Body temperature 98.29 [degF] Samir Marquez MD Work Phone: [facility] 07-25-2022 11:41-0500 Diastolic blood pressure 64 mm[Hg] Samir Marquez MD Work Phone: [facility] 07-25-2022 11:41-0500 SaO2% (BldA) [Mass fraction] 98 % Samir Marquez MD Work Phone: [facility] 07-25-2022 11:41-0500 Systolic blood pressure 117 mm[Hg] Samir Marquez MD Work Phone: [facility] 07-24-2022 05:59-0500 Body weight 72.58 kg Samir Marquez MD Work Phone: [facility] Encounters Encounter Date Encounter Type Care Provider Facility Start: 03-16-2025 End: 03-16-2025 Patient encounter procedure Cristopher GUILL[facility] Work Phone: Start: 03-16-2025 End: 03-16-2025 ambulatory Guanaco Crenshaw MD Work Phone: [facility] Start: 11-06-2024 End: 11-06-2024 ambulatory Guanaco Crenshaw MD Work Phone: [facility] Work Phone: Start: 11-06-2024 End: 11-06-[address] Guanaco Crenshaw MD -Laboratory, Specimen Work Phone: Start: 11-06-2024 End: 11-06-2024 ambulatory Guanaco Crenshaw Facility:[facility] Start: 09-05-2024 End: 09-05-2024 Patient encounter procedure Cristopher GUILLEN [facility] Work Phone: Start: 09-05-2024 End: 09-05-2024 ambulatory Guanaco Crenshaw Facility:[facility] Start: 11-14-2023 End: 11-14-2023 Emergency department patient visit [facility] Work Phone: Start: 11-13-2023 End: 11-13-2023 Emergency department patient visit [facility] Work Phone: Start: 07-25-2022 End: 07-31-2022 Evaluation and management of inpatient SAMIR MARQUEZ Facility:[facility] Start: 07-25-2022 End: 07-31-2022 Evaluation and management of inpatient Idalmis Machado MD Work Phone: [id number] Comment on above: Stroke Start: 07-14-2022 End: 07-25-2022 Evaluation and management of inpatient IDALMIS MACHADO Facility:[facility] Start: 07-14-2022 End: 07-25-2022 Evaluation and management of inpatient Samir Marquez MD Work Phone: [id number] Comment on above: IVH (intraventricula r hemorrhage) Start: 07-14-2022 End: 07-14-2022 Emergency department patient visit SURGERY - NEURO CONSULT Facility:[facility] Procedures Date Procedure Procedure Detail Performing Clinician Start: 07-31-2022 SARS-CoV-2 (COVID-19 ) RNA [Presence] in Unspecified specimen by TURNER with probe detection Dinesh Blackwell [employer] Work Phone: Start: 07-31-2022 Blood count platelet automated Dolores Schuler [employer] Work Phone: Start: 07-30-2022 Radiologic exam ches t single view Brian Monroy DO Work Phone: Start: 07-30-2022 Assay of magnesium Kika Guerrero Bader [employer] Work Phone: Start: 07-30-2022 CBC AND ELECTRONIC DIFF Arash Guerrero Bader [employer] Work Phone: Start: 07-30-2022 Complete blood count with white cell differential, automated Arash Garcíaer [employer] Work Phone: Start: 07-29-2022 Ecg routine ecg w/le ast 12 lds trcg only w/o i&r Arash Briceno [employer] Work Phone: Start: 07-29-2022 CONTINUOUS CARDIAC MONITORING STRIP Other Other Start: 07-27-2022 Assay of magnesium Kika Guerrero Bader [employer] Work Phone: Start: 07-27-2022 CBC AND ELECTRONIC DIFF Arash Briceno [employer] Work Phone: Start: 07-27-2022 Complete blood count with white cell differential, automated Arash Briceno [employer] Work Phone: Start: 07-26-2022 CONTINUOUS CARDIAC MONITORING STRIP Other Other Start: 07-26-2022 Assay of magnesium Kyle Denney MD Work Phone: Start: 07-26-2022 CBC AND ELECTRONIC DIFF Dread Denney MD Work Phone: Start: 07-26-2022 Complete blood count with white cell differential, automated Dread Denney MD Work Phone: Start: 07-25-2022 End: 07-25-2022 Antibody screen Idalmis Machado MD Work Phone: Comment on above: Performed By: #### X M #### [facility] ([facility]) [address] [place] [address] Start: 07-25-2022 Blood typing serologic abo Dread Denney MD Work Phone: Start: 07-25-2022 Prothrombin time Stepan Denney MD Work Phone: Start: 07-25-2022 CONTINUOUS CARDIAC MONITORING STRIP Other Other Start: 07-25-2022 Assay of magnesium Myriam leigha Perry [employer] Work Phone: Start: 07-24-2022 Assay of magnesium Myriam leigha Perry [employer] Work Phone: Start: 07-23-2022 Ct head/brain w/o co ntrast material Dolores Schuler [employer] Work Phone: Start: 07-23-2022 Glucose measurement, blood Idalmis Machado MD Work Phone: Start: 07-23-2022 Assay of magnesium Myriam leigha Perry [employer] Work Phone: Start: 07-22-2022 Assay of magnesium Myriam leigha Perry [employer] Work Phone: Start: 07-21-2022 Assay of magnesium Myriam leigha Perry [employer] Work Phone: Start: 07-20-2022 Assay of magnesium Myriam leigha Perry [employer] Work Phone: Start: 07-19-2022 CONTINUOUS CARDIAC MONITORING STRIP Other Other Start: 07-19-2022 Ct head/brain w/o co ntrast material Megan Perea MD Work Phone: Start: 07-19-2022 Radiologic exam ches t single view Annie Juarezshaw [employer] Work Phone: Start: 07-19-2022 Culture bacterial bl ood aerobic w/id isolates Annie Hutchins [employer] Work Phone: Start: 07-19-2022 Assay of magnesium Myriam leigha Perry [employer] Work Phone: Start: 07-18-2022 Ct head/brain w/o co ntrast material Candida Fraser MD Work Phone: Start: 07-18-2022 Culture bct isol&prs mptv id isolate ea urine Clau Marinelli MD Work Phone: Start: 07-18-2022 Ecg routine ecg w/le ast 12 lds trcg only w/o i&r Razia Miguel Lupe [employer] Work Phone: Start: 07-18-2022 Mri brain brain stem w/o contrast material Razia Andrade [employer] Work Phone: Start: 07-18-2022 Assay of magnesium Myriam leigha Perry [employer] Work Phone: Start: 07-17-2022 Ct head/brain w/o co ntrast material Razia Miguel Lupe [employer] Work Phone: Start: 07-17-2022 Ct head/brain w/o co ntrast material Jimbo Ram MD Work Phone: Start: 07-17-2022 Assay of magnesium Myriam leigha Perry [employer] Work Phone: Start: 07-16-2022 Prothrombin time Tejas Ram MD Work Phone: Start: 07-16-2022 Ct head/brain w/o co ntrast material Razia C Lupe [employer] Work Phone: Start: 07-16-2022 Ct head/brain w/o co ntrast material Razia C Pindall [employer] Work Phone: Start: 07-16-2022 Assay of magnesium Myriam leigha Perry [employer] Work Phone: Start: 07-16-2022 C-reactive protein Rosalino Higgins MD Work Phone: Start: 07-15-2022 Ct head/brain w/o co ntrast material Waleska Briggs [employer] Work Phone: Start: 07-15-2022 Assay of magnesium Myriam Perry [employer] Work Phone: Start: 07-14-2022 End: 07-15-2022 Rheumatoid factor quantitative Waleska Briggs [employer] Work Phone: Start: 07-14-2022 Ct head/brain w/o co ntrast material Charlene Syed PA-C Work Phone: Start: 07-14-2022 Glucose measurement, blood Samir Marquez MD Work Phone: Start: 07-14-2022 End: 07-14-2022 Slctv cath intrnl carotid art angio intrcrnl art Robby Ly MD, PhD Work Phone: Start: 07-14-2022 End: 07-14-2022 Antibody screen Samir Marquez MD Work Phone: Comment on above: Performed By: #### X M #### [facility] (DEFAULT) [address] [place] [id number] Start: 07-14-2022 End: 07-14-2022 Assay of magnesium Jody Perry [employer] Work Phone: Start: 07-14-2022 Iadna s aureus ampli fied probe tq Jody L Orlando [employer] Work Phone: Start: 07-14-2022 Antibody screen SURGERY CONSULT Comment on above: Performed By: #### X M #### [facility] (DEFAULT) [address] [place] [address] Start: 07-13-2022 Lipid 1996 panel - S mona or Plasma Samir Marquez MD Work Phone: Plan of Treatment Date Care Activity Detail Author Start: 07-13-2027 Lipid panel LIPID SCREENING [facility] Start: 03-16-2025 Prostate specific antigen measurement [facility] Start: 11-14-2023 [facility] Start: 11-13-2023 Bacteria identified in Urine by Culture [facility] Start: 11-13-2023 Urine culture Urine Culture [facility] Start: 11-13-2023 End: 11-13-2023 [facility] Start: 09-29-2022 End: 09-29-2022 Patient encounter procedure 09/29/2022 Office Visit Neurology Ben Oviedo Jr., MD [address] [place] [address] [facility] Start: 08-25-2022 End: 08-25-2022 Patient encounter procedure 08/25/2022 Office Visit Neurologic Surgery Robby Ly MD, PhD [address] [place] [id number] [facility] Start: 08-25-2022 End: 08-25-2022 Patient encounter procedure 08/25/2022 Appointment Computerized Tomography Scan Kitty Carlislenatbarney Guerrero, [employer] [address] [place] [address] [facility] Start: 07-28-2022 End: 07-28-2023 CT Head WO contrast CT HEAD WITHOUT CONTRAST Imaging Routine Cerebrovascular accident (CVA), unspecified mechanism Expected: 07/28/2022, Expires: 07/28/[address] [facility] Comment on above: Expected: 07/28/2022, Expires: Start: 03-26-2022 Influenza vaccination INFLUENZA VACCINE (#1) [facility] Start: 2019 Abdominal aortic aneurysm screening ABDOMINAL AORTIC ANEURYSM HIGH RISK SCREEN [facility] Start: 2004 Prostate specific antigen measurement PROSTATE CANCER SCREENING DISCUSSION [facility] Start: 2004 Zoster vaccine hzv live for subcutaneous use ZOSTER (SHINGLES) VACCINE (1 of 2) [facility] Start: 1999 Screening for malignant neoplasm of colon COLORECTAL CANCER SCREENING DISCUSSION [facility] Start: 1973 Third diphtheria, tetanus and acellular pertussis (DTaP) vaccination TDAP (ADULT) [facility] Start: 1960 Pneumococcal vaccination PNEUMOCOCCAL VACCINE SERIES (1 - PCV) [facility] Start: 1954 COVID-19 VACCINE (#1) COVID-19 VACCINE (#1) [facility] Start: 1954 Hepatitis C screening HEPATITIS C VIRUS SCREENING [facility] Start: 1954 Tetanus vaccination TETANUS [facility] Alanine aminotransfe rase [Enzymatic activity/volume] in Serum or Plasma [facility] Albumin [Mass/volume ] in Serum or Plasma [facility] Alkaline phosphatase [Enzymatic activity/volume] in Serum or Plasma [facility] Anion gap in Serum o r Plasma [facility] Bilirubin, total measurement [facility] BUN/Creatinine ratio [facility] Calcium [Mass/volume ] in Serum or Plasma [facility] Carbon dioxide, tota l [Moles/volume] in Central venous blood [facility] Cholesterol [Mass/vo lume] in Serum or Plasma [facility] Cholesterol in HDL [Mass/volume] in Serum or Plasma [facility] Creatinine [Mass/vol ume] in Serum or Plasma [facility] Erythrocyte mean corpuscular volume determination [facility] End: 07-14-2022 FLUORO IMAGING FOR NEURO ENDOVASCULAR [facility] Comment on above: One Time for 1 Occurrences starting 06/26 until 07/14/2022 Glucose [Mass/volume ] in Serum or Plasma [facility] Hematocrit [Volume Fraction] of Blood [facility] Hemoglobin [Mass/vol ume] in Blood [facility] Leukocytes [#/volume ] in Blood [facility] Low density lipoprot ein cholesterol measurement [facility] Mean corpuscular hemoglobin concentration determination [facility] Mean corpuscular hemoglobin determination [facility] Measurement of renal function [facility] Neutrophil count [facility] Neutrophil percent differential count [facility] Patient Education [facility] Work Phone: Patient referral [facility] Work Phone: Platelets [#/volume] in Blood [facility] Potassium measurement [facility] Red blood cell count [facility] Red cell distributio n width determination [facility] Serum chloride measurement [facility] Sodium measurement [facility] Total cholesterol:HD L ratio measurement [facility] Total protein measurement [facility] Triglycerides measurement [facility] Urea nitrogen [Mass/volume] in Serum or Plasma [facility] VLDL cholesterol measurement [facility] Payers Date Payer Category Payer Self-pay 2024 Unknown [id number] Private Health Insurance 101 [id number] Unknown [id number] Unknown [id number] Unknown [id number] Unknown [id number] Social History Date Type Detail Facility Start: 07-13-2022 End: 11-14-2023 Tobacco smoking status NHIS Smokes tobacco daily [facility] History of tobacco use Cigarette Smoker [facility] Start: 07-13-2022 Cigarettes smoked current (pack per day) - Reported 0.[address] [facility] Start: 07-13-2022 Tobacco use and exposure Smokeless tobacco non-user [facility] Start: 1955 Sex Assigned At Not on file [facility] Start: 07-04-2022 End: 07-25-2022 Exposure to SARS-CoV-2 (event) Unable to assess [facility] Start: 11-13-2023 End: 11-14-2023 Tobacco smoking status NHIS Unknown if ever smoked [facility] Start: 1955 Sex Assigned At Male [facility] Start: 11-10-2024 Sex Male (finding) [facility] Medical Equipment Procedure Code Equipment Code Equipment Origin al Text Equipment Identifier Dates Device Closure Cordis Mynxgrip 5fr Balloon Catheter - [id number] Start: 07-14-2022 Clinical Notes 07-14-2022 to 09-09-2022 Auth/Cert Note Date & Type Note Facility 09-09-2022 Reason for visit Narrative Specialty Diagnoses / Procedures Referred By Otoniel graham Referred To Contact Samir Marquez MD [address] [facility] [place] [address] [facility] [address] [place] [address] Referral ID Status Reason Start Date Expiration Date Visits Re quested Visits Authorized [id number] [address] [facility]01-09-2023 Reason for visit Narrative* Auth/Cert Specialty Diagnoses / Procedures Referred By Otoniel graham Referred To Contact Diagnoses IVC Idalmis Machado MD [address] [place] [address] [facility] [address] [place] [address] Referral ID Status Reason Start Date Expiration Date Visits Re quested Visits Authorized [id number] [address] [facility]01-06-2023 Miscellaneous Notes* Plan of Care - Scott Delgado RN - 07/31/2022 1:19 PM EST Problem: Patient Care Overview Goal: Plan of Care Review Outcome: Adequate for Discharge Goal: Individualization & Mutuality Outcome: Adequate for Discharge Goal: Discharge Needs Assessment Outcome: Adequate for Discharge Goal: Interdisciplinary Rounds/Family Conf Outcome: Adequate for Discharge Problem: Stroke (Ischemic) (Adult) Goal: Signs and Symptoms of Listed Potential Problems Will be Absent, Minimized or Managed (Stroke) Description: Signs and symptoms of listed potential problems will be absent, minimized or managed by discharge/transition of care (reference Stroke (Ischemic) (Adult) CPG). Outcome: Adequate for Discharge Problem: PT - Mobility Goal: Ambulation Description: Pt will ambulate 200 feet with out an assistive device with independence to improve ability to navigate home environment. Outcome: Adequate for Discharge Goal: Stairs Description: Pt will ascend/descend 12 stairs with out railings with independence with out an assistive device to improve ability to perform functional mobility necessary in recommended discharge environment. Outcome: Adequate for Discharge Problem: OT - Dressing Goal: Upper Body Dressing Description: Pt will complete UE dressing task seated in chair with minimal assistance for improvedability to complete self-care activities. Outcome: Adequate for Discharge Problem: OT - Balance Goal: Balance - Standing Description: Pt will perform 5 minutes of functional ADL task in standing with minimal assistance and balance level of minimum assist to promote safety and improved balance required for self-care activities. Outcome: Adequate for Discharge * Nursing Notes - Scott Delgado RN - 07/31/2022 1:19 PM EST Stroke patient education has been reviewed and all required elements are complete and personalized. Care plan documentation complete and patient adequate for discharge. Next dose medication details have been added to the AVS as appropriate. Report called to SNF. AVS, LINDA, and Discharge Summary faxed to SNF. Patient transferred into pt's family vehicle safely with this RN and BOXING PROMOTER. * Plan of Care - Topher Nevarez PT - 07/30/2022 11:40 AM EST Problem: PT - Balance/Coordination/Neuro Re-Education Goal: Sitting Dynamic/Static Balance Description: Pt will perform seated balance tasks for 15 minutes with independence UE support levelto improve safety with seated tasks. Outcome: Progressing Toward Goal Goal: Standing Dynamic/Static Balance Description: Pt will perform standing balance tasks for 15 minutes with independence with out an assistive device in order to improve functional mobility and safety with standing tasks. Outcome: Progressing Toward Goal Problem: PT - Mobility Goal: Ambulation Description: Pt will ambulate 200 feet with out an assistive device with independence to improve ability to navigate home environment. Outcome: Progressing Toward Goal Goal: Stairs Description: Pt will ascend/descend 12 stairs with out railings with independence with out an assistive device to improve ability to perform functional mobility necessary in recommended discharge environment. Outcome: Progressing Toward Goal Problem: PT - Transfers Goal: Sit <-> Stand Description: Pt will perform sit to/from stand transfers with independence with out an assistive device in order to improve functional mobility and safety. Outcome: Progressing Toward Goal * Nursing Notes - Crys Weir RN - 07/30/2022 12:20 AM EST Pt. Called staff to the room for c/o his chest hurting and feeling like he is dying. Vitals stable, 12-lead EKG showed Sinus Rhythm with First Degree AV Block. 2L of O2 placed on patient for comfort, morning labs drawn and 10mg Atarax administered. RN notified neurovascular physician DO Salasabout patient's condition. Physician ordered CXR, GI cocktail and STAT troponin to be added to morning lab draw. RN will continue to monitor patient and update physician on patient's progress. Vitals: 07/29/22 2351 BP: 139/64 Pulse: 66 Resp: 15 Temp: 97.9 F (36.6 C) * Nursing Notes - Crys Weir RN - 07/29/2022 9:47 PM EST Order placed for toledo cath after patient had difficulty urinating in voiding trial. Patient requested a walk before urinating and was able to urinate a large amount in toilet. PVR was 29ml. NotifiedNeurovascular physician DO Monroy. RN to continue to monitor, no toledo needed at this time. * Nursing Notes - Delicia Downey RN - 07/29/2022 6:09 PM EST Patient with syncopal episode while up trying to urinate. Patient did not fall, he was lowered downto the toilet. He was unresponsive for a moment, appearing pale in face. B/P 90/50's after getting him back to the bed. Patient unable to urinate. Bladder scanned for 400 ml. Will notify physician. * Plan of Care - Tejas Menon OT - 07/29/2022 2:54 PM EST Problem: OT - Dressing Goal: Upper Body Dressing Description: Pt will complete UE dressing task seated in chair with minimal assistance for improvedability to complete self-care activities. Outcome: Ongoing Problem: OT - ADLs Goal: Grooming Description: Pt will complete grooming in standing with contact guard assistance for improved ability to safely complete ADLs. Outcome: Ongoing Goal: Feeding Description: Pt will perform self-feeding task while seated with modified independence to promote success and safety during daily routine. Outcome: Ongoing Problem: OT - Balance Goal: Balance - Standing Description: Pt will perform 5 minutes of functional ADL task in standing with minimal assistance and balance level of minimum assist to promote safety and improved balance required for self-care activities. Outcome: Ongoing * Nursing Notes - Carli Shanks RN - 07/29/2022 12:31 PM EST BEHAVIORAL EMERGENCY RESPONSE TEAM (DESMOND) RN NOTE 07/29/2022 Love Skinner : 1955 Patient seen during DESMOND rounding. Patient observed sitting up in chair, eating lunch. No 1:1 present at bedside. Patient appears calm at this time. Per chart, patient was agitated overnight on 07/27 requiring a one time dose of IM Zyprexa. Consider adding standing PRN medication orders for agitationto prevent delay in administration if agitation should reoccur. DESMOND is available [phone] if needs arise. Carli Shanks RN-[facility] Pager: [phone] DESMOND Phone: [phone] * Plan of Care - Crys Weir RN - 07/29/2022 5:23 AM EST Problem: Patient Care Overview Goal: Plan of Care Review Outcome: Progressing Toward Goal Goal: Individualization & Mutuality Outcome: Progressing Toward Goal Goal: Discharge Needs Assessment Outcome: Progressing Toward Goal Problem: Stroke (Ischemic) (Adult) Goal: Signs and Symptoms of Listed Potential Problems Will be Absent, Minimized or Managed (Stroke) Description: Signs and symptoms of listed potential problems will be absent, minimized or managed by discharge/transition of care (reference Stroke (Ischemic) (Adult) CPG). Outcome: Progressing Toward Goal * Plan of Care - Lilli Dan PT - 07/28/2022 1:05 PM EST Problem: PT - Balance/Coordination/Neuro Re-Education Goal: Standing Dynamic/Static Balance Description: Pt will perform standing balance tasks for 15 minutes with independence with out an assistive device in order to improve functional mobility and safety with standing tasks. Outcome: Progressing Toward Goal Problem: PT - Mobility Goal: Ambulation Description: Pt will ambulate 200 feet with out an assistive device with independence to improve ability to navigate home environment. Outcome: Progressing Toward Goal Problem: PT - Transfers Goal: Sit <-> Stand Description: Pt will perform sit to/from stand transfers with independence with out an assistive device in order to improve functional mobility and safety. Outcome: Progressing Toward Goal * Plan of Care - MIGUEL A Krueger - 07/28/2022 9:51 AM EST Problem: MICROBIOLOGICAL LAB TECHNICIAN - Cognition Goal: Memory Goal 1 Description: Patient will utilize compensatory memory strategies to teach back at least 3 facts related to their hospitalization/POC across a 5 minute delay across at least 2 consecutive sessions to support generalization of strategy use and pt's self-advocacy, min cues by discharge. Outcome: Ongoing Goal: Problem Solving Goal 1 Description: Patient will complete basic problem solving tasks in at least 3/5 of opportunities in their immediate environment to support self-advocacy and independence, given min cues across 2 consecutive sessions by discharge. Outcome: Ongoing Goal: Meticognition Goal 1 Description: Patient will identify at least 3 deficits related to medical condition and how deficits will impact ability to return home with min cues across 2-3 sessions to improve insight and safety. Outcome: Ongoing Goal: Orientation Goal Description: Patient will recall/implement use of orientation strategies, given min -no cues, to demonstrate improved awareness and insight as measured by achieving a 27/30 on The Orientation Log, across 1-2 sessions. Outcome: Ongoing * Plan of Care - Ana Maria Steele RN - 07/26/2022 9:33 PM EST Problem: Patient Care Overview Goal: Plan of Care Review Outcome: Ongoing Goal: Individualization & Mutuality Outcome: Ongoing Goal: Discharge Needs Assessment Outcome: Ongoing Goal: Interdisciplinary Rounds/Family Conf Outcome: Ongoing Problem: Stroke (Ischemic) (Adult) Goal: Signs and Symptoms of Listed Potential Problems Will be Absent, Minimized or Managed (Stroke) Description: Signs and symptoms of listed potential problems will be absent, minimized or managed by discharge/transition of care (reference Stroke (Ischemic) (Adult) CPG). Outcome: Ongoing * Plan of Care - Divina Larkin OT - 07/26/2022 5:18 PM EST Problem: OT - Dressing Goal: Upper Body Dressing Description: Pt will complete UE dressing task seated in chair with minimal assistance for improvedability to complete self-care activities. Outcome: Ongoing Problem: OT - ADLs Goal: Grooming Description: Pt will complete grooming in standing with contact guard assistance for improved ability to safely complete ADLs. Outcome: Ongoing Goal: Feeding Description: Pt will perform self-feeding task while seated with modified independence to promote success and safety during daily routine. Outcome: Ongoing Problem: OT - Balance Goal: Balance - Standing Description: Pt will perform 5 minutes of functional ADL task in standing with minimal assistance and balance level of minimum assist to promote safety and improved balance required for self-care activities. Outcome: Ongoing * Plan of Care - Minerva Prakash PT - 07/26/2022 11:17 AM EST Problem: PT - Balance/Coordination/Neuro Re-Education Goal: Sitting Dynamic/Static Balance Description: Pt will perform seated balance tasks for 15 minutes with independence UE support levelto improve safety with seated tasks. Outcome: Ongoing Goal: Standing Dynamic/Static Balance Description: Pt will perform standing balance tasks for 15 minutes with independence with out an assistive device in order to improve functional mobility and safety with standing tasks. Outcome: Ongoing Problem: PT - Mobility Goal: Ambulation Description: Pt will ambulate 200 feet with out an assistive device with independence to improve ability to navigate home environment. Outcome: Ongoing Goal: Stairs Description: Pt will ascend/descend 12 stairs with out railings with independence with out an assistive device to improve ability to perform functional mobility necessary in recommended discharge environment. Outcome: Ongoing Problem: PT - Transfers Goal: Sit <-> Stand Description: Pt will perform sit to/from stand transfers with independence with out an assistive device in order to improve functional mobility and safety. Outcome: Ongoing Goal: Strength/ROM Description: Pt will perform 2 sets of 15 repetitions of lower bilateral extremity exercises with independence in order to improve strength, maintain ROM, necessary for functional mobility. Outcome: Ongoing * Plan of Care - Divina Jiang RN - 07/26/2022 10:00 AM EST Problem: Patient Care Overview Goal: Plan of Care Review Outcome: Ongoing Goal: Individualization & Mutuality Outcome: Ongoing Goal: Discharge Needs Assessment Outcome: Ongoing Goal: Interdisciplinary Rounds/Family Conf Outcome: Ongoing * Certification - Dread Denney MD - 07/25/2022 3:54 PM EST I certify that this patient requires inpatient services at this time. I anticipate the expected length of stay will include at least two midnights. Inpatient services are due to the following medicalconcerns bleeding. Plans for post hospitalization care will be discharge to [facility] documented in this [facility]01-06-2023 Miscellaneous Notes* Plan of Care - Scott Delgado RN - 07/31/2022 1:19 PM EST Problem: Patient Care Overview Goal: Plan of Care Review Outcome: Adequate for Discharge Goal: Individualization & Mutuality Outcome: Adequate for Discharge Goal: Discharge Needs Assessment Outcome: Adequate for Discharge Goal: Interdisciplinary Rounds/Family Conf Outcome: Adequate for Discharge Problem: Stroke (Ischemic) (Adult) Goal: Signs and Symptoms of Listed Potential Problems Will be Absent, Minimized or Managed (Stroke) Description: Signs and symptoms of listed potential problems will be absent, minimized or managed by discharge/transition of care (reference Stroke (Ischemic) (Adult) CPG). Outcome: Adequate for Discharge Problem: PT - Mobility Goal: Ambulation Description: Pt will ambulate 200 feet with out an assistive device with independence to improve ability to navigate home environment. Outcome: Adequate for Discharge Goal: Stairs Description: Pt will ascend/descend 12 stairs with out railings with independence with out an assistive device to improve ability to perform functional mobility necessary in recommended discharge environment. Outcome: Adequate for Discharge Problem: OT - Dressing Goal: Upper Body Dressing Description: Pt will complete UE dressing task seated in chair with minimal assistance for improvedability to complete self-care activities. Outcome: Adequate for Discharge Problem: OT - Balance Goal: Balance - Standing Description: Pt will perform 5 minutes of functional ADL task in standing with minimal assistance and balance level of minimum assist to promote safety and improved balance required for self-care activities. Outcome: Adequate for Discharge * Nursing Notes - Scott Delgado RN - 07/31/2022 1:19 PM EST Stroke patient education has been reviewed and all required elements are complete and personalized. Care plan documentation complete and patient adequate for discharge. Next dose medication details have been added to the AVS as appropriate. Report called to SNF. AVS, LINDA, and Discharge Summary faxed to SNF. Patient transferred into pt's family vehicle safely with this RN and BOXING PROMOTER. * Plan of Care - Topher Nevarez PT - 07/30/2022 11:40 AM EST Problem: PT - Balance/Coordination/Neuro Re-Education Goal: Sitting Dynamic/Static Balance Description: Pt will perform seated balance tasks for 15 minutes with independence UE support levelto improve safety with seated tasks. Outcome: Progressing Toward Goal Goal: Standing Dynamic/Static Balance Description: Pt will perform standing balance tasks for 15 minutes with independence with out an assistive device in order to improve functional mobility and safety with standing tasks. Outcome: Progressing Toward Goal Problem: PT - Mobility Goal: Ambulation Description: Pt will ambulate 200 feet with out an assistive device with independence to improve ability to navigate home environment. Outcome: Progressing Toward Goal Goal: Stairs Description: Pt will ascend/descend 12 stairs with out railings with independence with out an assistive device to improve ability to perform functional mobility necessary in recommended discharge environment. Outcome: Progressing Toward Goal Problem: PT - Transfers Goal: Sit <-> Stand Description: Pt will perform sit to/from stand transfers with independence with out an assistive device in order to improve functional mobility and safety. Outcome: Progressing Toward Goal * Nursing Notes - Crys Weir RN - 07/30/2022 12:20 AM EST Pt. Called staff to the room for c/o his chest hurting and feeling like he is dying. Vitals stable, 12-lead EKG showed Sinus Rhythm with First Degree AV Block. 2L of O2 placed on patient for comfort, morning labs drawn and 10mg Atarax administered. RN notified neurovascular physician DO [place] patient's condition. Physician ordered CXR, GI cocktail and STAT troponin to be added to morning lab draw. RN will continue to monitor patient and update physician on patient's progress. Vitals: 07/29/22 2351 BP: 139/64 Pulse: 66 Resp: 15 Temp: 97.9 F (36.6 C) * Nursing Notes - Crys Weir RN - 07/29/2022 9:47 PM EST Order placed for toledo cath after patient had difficulty urinating in voiding trial. Patient requested a walk before urinating and was able to urinate a large amount in toilet. PVR was 29ml. NotifiedNeurovascular physician DO [place]. RN to continue to monitor, no toledo needed at this time. * Nursing Notes - Delicia Downey RN - 07/29/2022 6:09 PM EST Patient with syncopal episode while up trying to urinate. Patient did not fall, he was lowered downto the toilet. He was unresponsive for a moment, appearing pale in face. B/P 90/50's after getting him back to the bed. Patient unable to urinate. Bladder scanned for 400 ml. Will notify physician. * Plan of Care - Tejas Menon OT - 07/29/2022 2:54 PM EST Problem: OT - Dressing Goal: Upper Body Dressing Description: Pt will complete UE dressing task seated in chair with minimal assistance for improvedability to complete self-care activities. Outcome: Ongoing Problem: OT - ADLs Goal: Grooming Description: Pt will complete grooming in standing with contact guard assistance for improved ability to safely complete ADLs. Outcome: Ongoing Goal: Feeding Description: Pt will perform self-feeding task while seated with modified independence to promote success and safety during daily routine. Outcome: Ongoing Problem: OT - Balance Goal: Balance - Standing Description: Pt will perform 5 minutes of functional ADL task in standing with minimal assistance and balance level of minimum assist to promote safety and improved balance required for self-care activities. Outcome: Ongoing * Nursing Notes - Carli Shanks RN - 07/29/2022 12:31 PM EST BEHAVIORAL EMERGENCY RESPONSE TEAM (DESMOND) RN NOTE 07/29/2022 Love Skinner : 1955 Patient seen during DEMSOND rounding. Patient observed sitting up in chair, eating lunch. No 1:1 present at bedside. Patient appears calm at this time. Per chart, patient was agitated overnight on 07/27 requiring a one time dose of IM Zyprexa. Consider adding standing PRN medication orders for agitationto prevent delay in administration if agitation should reoccur. DESMOND is available [phone] if needs arise. Carli Shanks RN-[facility] Pager: [phone] [facility] Phone: [phone] * Plan of Care - Crys Weir RN - 07/29/2022 5:23 AM EST Problem: Patient Care Overview Goal: Plan of Care Review Outcome: Progressing Toward Goal Goal: Individualization & Mutuality Outcome: Progressing Toward Goal Goal: Discharge Needs Assessment Outcome: Progressing Toward Goal Problem: Stroke (Ischemic) (Adult) Goal: Signs and Symptoms of Listed Potential Problems Will be Absent, Minimized or Managed (Stroke) Description: Signs and symptoms of listed potential problems will be absent, minimized or managed by discharge/transition of care (reference Stroke (Ischemic) (Adult) CPG). Outcome: Progressing Toward Goal * Plan of Care - Lilli Dan PT - 07/28/2022 1:05 PM EST Problem: PT - Balance/Coordination/Neuro Re-Education Goal: Standing Dynamic/Static Balance Description: Pt will perform standing balance tasks for 15 minutes with independence with out an assistive device in order to improve functional mobility and safety with standing tasks. Outcome: Progressing Toward Goal Problem: PT - Mobility Goal: Ambulation Description: Pt will ambulate 200 feet with out an assistive device with independence to improve ability to navigate home environment. Outcome: Progressing Toward Goal Problem: PT - Transfers Goal: Sit <-> Stand Description: Pt will perform sit to/from stand transfers with independence with out an assistive device in order to improve functional mobility and safety. Outcome: Progressing Toward Goal * Plan of Care - MIGUEL A Krueger - 07/28/2022 9:51 AM EST Problem: MICROBIOLOGICAL LAB TECHNICIAN - Cognition Goal: Memory Goal 1 Description: Patient will utilize compensatory memory strategies to teach back at least 3 facts related to their hospitalization/POC across a 5 minute delay across at least 2 consecutive sessions to support generalization of strategy use and pt's self-advocacy, min cues by discharge. Outcome: Ongoing Goal: Problem Solving Goal 1 Description: Patient will complete basic problem solving tasks in at least 3/5 of opportunities in their immediate environment to support self-advocacy and independence, given min cues across 2 consecutive sessions by discharge. Outcome: Ongoing Goal: Meticognition Goal 1 Description: Patient will identify at least 3 deficits related to medical condition and how deficits will impact ability to return home with min cues across 2-3 sessions to improve insight and safety. Outcome: Ongoing Goal: Orientation Goal Description: Patient will recall/implement use of orientation strategies, given min -no cues, to demonstrate improved awareness and insight as measured by achieving a 27/30 on The Orientation Log, across 1-2 sessions. Outcome: Ongoing * Plan of Care - Ana Maria Steele RN - 07/26/2022 9:33 PM EST Problem: Patient Care Overview Goal: Plan of Care Review Outcome: Ongoing Goal: Individualization & Mutuality Outcome: Ongoing Goal: Discharge Needs Assessment Outcome: Ongoing Goal: Interdisciplinary Rounds/Family Conf Outcome: Ongoing Problem: Stroke (Ischemic) (Adult) Goal: Signs and Symptoms of Listed Potential Problems Will be Absent, Minimized or Managed (Stroke) Description: Signs and symptoms of listed potential problems will be absent, minimized or managed by discharge/transition of care (reference Stroke (Ischemic) (Adult) CPG). Outcome: Ongoing * Plan of Care - Divina Larkin OT - 07/26/2022 5:18 PM EST Problem: OT - Dressing Goal: Upper Body Dressing Description: Pt will complete UE dressing task seated in chair with minimal assistance for improvedability to complete self-care activities. Outcome: Ongoing Problem: OT - ADLs Goal: Grooming Description: Pt will complete grooming in standing with contact guard assistance for improved ability to safely complete ADLs. Outcome: Ongoing Goal: Feeding Description: Pt will perform self-feeding task while seated with modified independence to promote success and safety during daily routine. Outcome: Ongoing Problem: OT - Balance Goal: Balance - Standing Description: Pt will perform 5 minutes of functional ADL task in standing with minimal assistance and balance level of minimum assist to promote safety and improved balance required for self-care activities. Outcome: Ongoing * Plan of Care - Minerva Prakash PT - 07/26/2022 11:17 AM EST Problem: PT - Balance/Coordination/Neuro Re-Education Goal: Sitting Dynamic/Static Balance Description: Pt will perform seated balance tasks for 15 minutes with independence UE support levelto improve safety with seated tasks. Outcome: Ongoing Goal: Standing Dynamic/Static Balance Description: Pt will perform standing balance tasks for 15 minutes with independence with out an assistive device in order to improve functional mobility and safety with standing tasks. Outcome: Ongoing Problem: PT - Mobility Goal: Ambulation Description: Pt will ambulate 200 feet with out an assistive device with independence to improve ability to navigate home environment. Outcome: Ongoing Goal: Stairs Description: Pt will ascend/descend 12 stairs with out railings with independence with out an assistive device to improve ability to perform functional mobility necessary in recommended discharge environment. Outcome: Ongoing Problem: PT - Transfers Goal: Sit <-> Stand Description: Pt will perform sit to/from stand transfers with independence with out an assistive device in order to improve functional mobility and safety. Outcome: Ongoing Goal: Strength/ROM Description: Pt will perform 2 sets of 15 repetitions of lower bilateral extremity exercises with independence in order to improve strength, maintain ROM, necessary for functional mobility. Outcome: Ongoing * Plan of Care - Divina Jiang RN - 07/26/2022 10:00 AM EST Problem: Patient Care Overview Goal: Plan of Care Review Outcome: Ongoing Goal: Individualization & Mutuality Outcome: Ongoing Goal: Discharge Needs Assessment Outcome: Ongoing Goal: Interdisciplinary Rounds/Family Conf Outcome: Ongoing * Certification - Dread Denney MD - 07/25/2022 3:54 PM EST I certify that this patient requires inpatient services at this time. I anticipate the expected length of stay will include at least two midnights. Inpatient services are due to the following medicalconcerns bleeding. Plans for post hospitalization care [facility]* Plan of Care - Scott Delgado RN - 07/31/2022 1:19 PM EST Problem: Patient Care Overview Goal: Plan of Care Review Outcome: Adequate for Discharge Goal: Individualization & Mutuality Outcome: Adequate for Discharge Goal: Discharge Needs Assessment Outcome: Adequate for Discharge Goal: Interdisciplinary Rounds/Family Conf Outcome: Adequate for Discharge Problem: Stroke (Ischemic) (Adult) Goal: Signs and Symptoms of Listed Potential Problems Will be Absent, Minimized or Managed (Stroke) Description: Signs and symptoms of listed potential problems will be absent, minimized or managed by discharge/transition of care (reference Stroke (Ischemic) (Adult) CPG). Outcome: Adequate for Discharge Problem: PT - Mobility Goal: Ambulation Description: Pt will ambulate 200 feet with out an assistive device with independence to improve ability to navigate home environment. Outcome: Adequate for Discharge Goal: Stairs Description: Pt will ascend/descend 12 stairs with out railings with independence with out an assistive device to improve ability to perform functional mobility necessary in recommended discharge environment. Outcome: Adequate for Discharge Problem: OT - Dressing Goal: Upper Body Dressing Description: Pt will complete UE dressing task seated in chair with minimal assistance for improvedability to complete self-care activities. Outcome: Adequate for Discharge Problem: OT - Balance Goal: Balance - Standing Description: Pt will perform 5 minutes of functional ADL task in standing with minimal assistance and balance level of minimum assist to promote safety and improved balance required for self-care activities. Outcome: Adequate for Discharge [facility]01-06-2023 Note* Nursing Notes - Scott Delgado RN - 07/31/2022 1:19 PM EST Stroke patient education has been reviewed and all required elements are complete and personalized. Care plan documentation complete and patient adequate for discharge. Next dose medication details have been added to the AVS as appropriate. Report called to SNF. AVS, LINDA, and Discharge Summary faxed to SNF. Patient transferred into pt's family vehicle safely with this RN and BOXING PROMOTER. [facility]01-06-2023 Note* Plan of Care - Scott Delgado RN - 07/31/2022 1:19 PM EST Problem: Patient Care Overview Goal: Plan of Care Review Outcome: Adequate for Discharge Goal: Individualization & Mutuality Outcome: Adequate for Discharge Goal: Discharge Needs Assessment Outcome: Adequate for Discharge Goal: Interdisciplinary Rounds/Family Conf Outcome: Adequate for Discharge Problem: Stroke (Ischemic) (Adult) Goal: Signs and Symptoms of Listed Potential Problems Will be Absent, Minimized or Managed (Stroke) Description: Signs and symptoms of listed potential problems will be absent, minimized or managed by discharge/transition of care (reference Stroke (Ischemic) (Adult) CPG). Outcome: Adequate for Discharge Problem: PT - Mobility Goal: Ambulation Description: Pt will ambulate 200 feet with out an assistive device with independence to improve ability to navigate home environment. Outcome: Adequate for Discharge Goal: Stairs Description: Pt will ascend/descend 12 stairs with out railings with independence with out an assistive device to improve ability to perform functional mobility necessary in recommended discharge environment. Outcome: Adequate for Discharge Problem: OT - Dressing Goal: Upper Body Dressing Description: Pt will complete UE dressing task seated in chair with minimal assistance for improvedability to complete self-care activities. Outcome: Adequate for Discharge Problem: OT - Balance Goal: Balance - Standing Description: Pt will perform 5 minutes of functional ADL task in standing with minimal assistance and balance level of minimum assist to promote safety and improved balance required for self-care activities. Outcome: Adequate for Discharge [facility]01-06-20[facility] Note* Nursing Notes - Scott Delgado RN - 07/31/2022 1:19 PM EST Stroke patient education has been reviewed and all required elements are complete and personalized. Care plan documentation complete and patient adequate for discharge. Next dose medication details have been added to the AVS as appropriate. Report called to SNF. AVS, LINDA, and Discharge Summary faxed to SNF. Patient transferred into pt's family vehicle safely with this RN and BOXING PROMOTER. [facility]01-06-2023 History of Present illness Narrative* BETH Gonzalez - 07/31/2022 12:23 PM EST Final Discharge Planning Final Discharge Planning Discharge Disposition: Senior Care Facility Services at Discharge: Speech Therapy, Senior Care, Occupational Therapy, Physical Therapy Selected Continued Care - Admitted Since 07/25/2022 No services have been selected for the patient. Community Agency Name(s) For Handoff: [facility] Phone For Handoff: Fax For Handoff: Additional Community Agency Name(s): no Plan Plan: Discharge to SNF Patient/Family In Agreement With Plan: yes AVS is complete per CM's viewpoint. Follow-up neurology, neurosurgery and CT appointments are scheduled. to schedule urology appointment. to transport Pt to facility this afternoon. No other CM needs at this time. TRUNG [employer]man[employer] Production Underwriter [phone] * Dinesh Blackwell APRN-ZACK - 07/31/2022 5:38 AM EST Neurovascular Stroke Service Intracerebral Hemorrhage Note IDENTIFYING INFORMATION Love Skinner MR# [id number] 07/31/2022 HISTORY OF PRESENT ILLNESS Love Skinner is a 67 y.o. male with PMH significant for tobacco use disorder who presented to OSH EDwith nausea, vomiting, and headache found to have interventricular hemorrhage. Symptoms started around 1200 on 07/13/2022 while he was working. He was taken to OSH where CTH demonstrated bilateral IVH L>R. He was transferred to [facility] for further work-up. He does not take any anticoagulants or antiplatelets. He arrived on cardene drip and SBP less than 140. NIH 3 on arrival for LUE weakness and confusion. INTERVAL HISTORY 07/14: DCA pending today to evaluate for suspected Mcdermott Mcdermott and IVH etiology 07/15: DCA completed, TTE and MRI brain pending 07/18: tx to NVS 07/19: ALIS overnight, TTE pending, IV fluids due to poor oral intake, Fever- urine culture pending, chest xray pending, blood cultures pending . 07/20: Lisinopril increased to 40 mg. Urine culture unremarkable, blood cx pending. Neuro exam stable. 07/21: Blood cultures no growth day 2/5. Neuro exam stable. IV hydration ordered. TTE pending. Coreg started. 07/22: Remove [place]ledo today, continue sitter, coreg increased 07/23: syncopal episode today, repeat CTH stable, replace K and Mag 07/24: Orthostatic change noted in BP with position, ordered GREG hose. 07/25: 1 liter of IV fluids, post void trial today-failed, discontinued Keflex 07/26: [place] replaced d/t failed void trail, urology consulted. ALIS overnight. Neuro exam & VS stable. Seroquel changed to PRN. 07/27: Agitation overnight requiring IM zyprexa plus additional dose of seroquel. Seroquel changed back to scheduled. Melatonin scheduled. 07/28: Decrease AM scheduled seroquel, OOB to chair 07/29: [place] catheter removed, sitter/restraints discontinued 07/30: chest discomfort overnight, ECG/trop/CXR unremarkable, GI cocktail ordered, suspect likely anxiety, resolved this AM 07/31: ALIS, VSS, SNF approved, family to provide transport today PHYSICAL EXAM Gen: awake, alert HEENT: normocephalic, no scalp lesions or tenderness, PERRL, EOMI Neck: trachea midline CV: +S1S2, RRR, no m/r/g Lungs: LCTA bilaterally with equal chest rise Abd: soft, nontender, nondistended, +BS x4 quadrants Extrem: Warm and well perfused, no cyanosis, clubbing, edema Neuro: Oriented to self and place, not situation or time, ARAGON x4, sensation intact and equal bilaterally CN II - All visual ponce intact CN II/III - PERRL CN III/IV/ - EOMI CN V - Light touch to face intact in all 3 divisions CN VII - Facial movement intact and symmetrical bilaterally CN VIII - Hearing intact CN X - Cough present CN XI - muscular movement of shoulders and sternocleidomastoid muscles intact and equal bilaterally CN XII - midline protrusion of tongue MOTOR EXAMINATION: no drift noted. NIHSS Provider NIH Stroke Scale NIH Interval (Provider): daily NIH Level of Conciousness (Provider): 0 NIH LOC Questions (Provider): 2 NIH LOC Commands (Provider): 0 NIH Best Gaze (Provider): 0 NIH Visual (Provider): 0 NIH Facial Palsy (Provider): 0 NIH Left Arm Motor (Provider): 0 NIH Right Arm Motor (Provider): 0 NIH Left Leg Motor (Provider): 0 NIH Right Leg Motor (Provider): 0 NIH Limb Ataxia (Provider): 0 NIH Sensory (Provider): 0 NIH Best Language (Provider): 1 NIH Dysarthria (Provider): 0 NIH Extinction and Inattention (Provider): 0 NIH Total Score (Provider): 3 Intracerebral Hemorrhage Volume Intracerebral Hemorrhage Score Score 30 Day Mortality following ICH 0 0% Mortality 1 13% Mortality 2 26% Mortality 3 72% Mortality 4 97% Mortality 5 100% Mortality ASSESSMENT AND PLAN Neuro: IVH c/b hydrocephalus, Advanced B/L MoyaMoya ICH score 1 CTH on arrival: IVH L > R, stable from outside hospital CTA: no spot sign. 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 -Antiplatelet therapy is not indicated. -Anticoagulation therapy not indicated in hemorrhagic stroke -Patients LDL 131 and HgbA1c p were checked and the patient will be discharged on atorvastatin 80 mg -Dysphagia screening ordered, and will be completed prior to patient receiving oral intake. -Stroke education booklet has been provided both written and verbal education to the patient and family regarding hemorrhagic strokes. We have reviewed the patient's personal modifiable risk factors as well as education on reducing these risk factors. -Patient is being assessed for Rehab by PT/OT/Speech and PM&R if indicated. Near syncpoal episode with orthostatic hypotension -on 07/23 while working with PT: ERT called. CTH without change. SBP dropped from 154 sitting to 89standing -GREG hose ordered -1 liter of IV fluids on 07/25 -Orthostatic precautions including gradual position changes Leukocytosis and Concern for UTI: resolved T Max 100.5 F on 07/19, CXR unremarkable, UA with small leukocytes and 10-20 WBC's, Urine culture no growth. Blood cultures from 07/19 with no growth -Keflex discontinued on 07/25 Headache: resolved, Given reglan IV and magnesium IV 07/19 -Acetaminophen PRN Hyponatremia, hypokalemia, hypomagnesemia, resolved: Likely 2/2 poor oral intake -Replace as needed -Encourage PO intake HLD: -statin as above HTN: Goal SBP < 140 -Lisinopril increased to 40 mg on 07/20 -Norvasc 10 mg, Coreg 12.5 mg BID BPH: Improving -Flomax 0.4mg daily -Urology was consulted due to presence of false tract and they placed [place]ledo on 07/22 -DC [place] 07/29, passed void trial Agitation: Delirium: likely a combination of IVH/hydrocephalus, hospital acquired -Agitated requiring IM zyprexa x1 plus additional dose of seroquel in the evening on 07/26 -Scheduled seroquel changed to PRN on 07/26, switched back to scheduled q12h on 07/27, QTc stable 443 -Seroquel decreased in morning to 12.5 mg daily, 25 mg every evening -Melatonin 6 mg ordered early evening Tobacco use: POA -Nicotine patch -Encourage cessation Love Skinner will likely be discharged to SNF requested Dinesh Blackwell, AUTO MECHANICS TEACHER-CHURCH MUSICIAN 07/31/2022 9:03 AM VITAL SIGNS Temp: [97.6 F (36.4 C)-98.6 F (37 C)] 98.6 F (37 C) Pulse (Heart Rate): [72-93] 93 Resp Rate: [20-24] 20 BP: (121-133)/(63-65) 133/63 O2 Sat (%): [95 %-98 %] 95 % IMAGING/DIAGNOSTIC STUDIES XR CHEST PORTABLE Final Result IMPRESSION: No acute findings appreciated. HEAD WITHOUT CONTRAST (Results Pending) .wet MEDICATIONS amLODIPine 10 mg Oral Daily aspirin 81 mg Oral Daily Atorvastatin 80 mg Oral QHS carveDILOL 12.5 mg Oral BID enoxaparin 40 mg Subcutaneous Daily lidocaine 2 patch Transdermal Daily Lisinopril 40 mg Oral Daily Melatonin 6 mg Oral Daily early evening nicotine 1 patch Transdermal Q24H And VERIFY LINKED PATCH PLACEMENT Other Q12H QUEtiapine 12.5 mg Oral Daily QUEtiapine 25 mg Oral QHS senna 8.6 mg Oral Daily Or senna 8.6 mg Per NG tube Daily Tamsulosin HCl 0.4 mg Oral Daily * Topher Nevarez, PT - 07/30/2022 11:41 AM EST Acute Physical Therapy Treatment Prior to Admission AMPA score(s): PRIOR LEVEL AM-PAC Mobility Raw Score: 24 PRIOR LEVEL AM-PAC Activity Raw Score: 24 Current AM-PAC score(s): CURRENT AM-PAC Mobility Raw Score: 18 Based on the above AM-PAC score(s) and PT clinical judgment, patient is a good candidate for discharge to Inpatient Rehab Facility Supporting Factors (would benefit from skilled therapy services): Impaired balance, Fall risk, Impaired functional status Mobility equipment available at home: none used ADL equipment available at home: none Equipment needed for discharge: to be determined Current therapy frequency recommendation in acute: Therapy Frequency: 5 times a week Precautions and Weightbearing Status: Existing Precautions/Restrictions: fall Patient Safety Communication Prior to Visit: Nursing Subjective: Patient reports he is ready to get out of hospital Pain: General Pain Documentation (Adult, OB, Peds) Presence of Pain: denies pain/discomfort DVPRS (Defense and Veterans Pain Rating Scale) DVPRS: Rest: 0- no pain DVPRS: Activity: 0- no pain Objective/Observation: Vitals/Vitals Responses to Treatment: Tolerates session well Respiratory Status O2 Device: room air Cognition Overall Cognitive Status: Impaired Arousal/Alertness: Appropriate responses to stimuli Following Commands: Follows one step commands with increased time Safety Judgment: Decreased awareness of need for safety, Decreased awareness of need for assistance Awareness of Errors: Decreased awareness of errors Deficits: Decreased awareness of deficits Attention Span: Appears intact Extremity Assessments: See PT Evaluation flowsheet for Extremity Measurement updates. Balance: Sitting Balance Static Sitting-Level of Assistance: Supervision Dynamic Sitting-Level of Assistance: Supervision Standing Balance Static Standing-Level of Assistance: Contact guard Dynamic Standing-Level of Assistance: Contact guard Standing-Balance Support: 4 wheeled walker Skilled Rationale: Hand placement, Verbal cues, Technique of activity, Upright gaze/neck extension Transfer Assessment/Intervention: Sit to Stand Transfer [place] Level: Sit->Stand: contact guard assist Assistive Device: Sit->Stand: 2 wheeled walker Skilled Rationale: Positioning, Hand placement, Verbal cues, Sequencing, Technique of activity Skilled Intervention/Details: Sit->Stand: 3x5 in mass practice to work on LE strength needed forincreased activity and for carryover of transfer skills. Breaks needed in between for fatigue Gait/Functional Mobility Assessment/Intervention: Gait Assessment [place] Level: Gait: contact guard assist Assistive Device: Gait: 2 wheeled walker Ambulation Distance (Feet): (2x150) Gait Deviations Identified: decreased john, decreased gait speed, decreased heel strike, decreased step length, decreased stride length Gait Skilled Rationale: verbal, increase step length, upright posture Skilled Intervention/Details - Gait: VC for safety throughout for Ww positioning to promote uprightposture and limit propulsion. VC for gait speed, patient able to improve, but not maintain due to pain from corns Outcome Score(s): 25.2 sec Geriatrics Vestibular Disorders Parkinsons Disease > or = 12 seconds: further fall assessment needed1 > 15 seconds: fall risk3 > 16 seconds: fall risk4 > 15 seconds: recurrent falls2 1TieCora lopez, Rae, H., et al. (2008). The comparative ability of eight functional mobility tests for predicting falls in community-dwelling older people. Age and Ageing 37(4): 430-435. 2BAxel gutierrez, Uma Daily, et al. (2010). A simple clinical scale to stratify risk of recurrent falls in community-dwelling adults aged 65 years and older. Physical Therapy 90(4): 550-560. 3BAxel gutierrez, Hilary Campos, et al. (2008). Five times sit to stand test is a predictor of recurrent falls in healthy community-living subjects aged 65 and older. Journal of the [place] GeriatricsSociety 56(8): 8510-3217. 4DMandie tripathi, Cora Belle, et al. (2011). Five times dpw-cy-kltzv test performance in Parkinson's disease. Arch Phys Med Rehabil 92(9): 7201-2293. [facility]RENT [facility] Basic Mobility Inpatient Short Form Turning over in bed: 3 - A Little Assistance Sitting/standing from chair: 3 - A Little Assistance Moving from lying on back to sittin - A Little Assistance Moving to and from bed to chair: 3 - A Little Assistance Walk in hospital room: 3 - A Little Assistance Climbing 3-5 steps with a railin - A Little Assistance [facility]RENT [facility] Mobility Raw Score: 18 CURRENT [facility] Mobility Functional Limitation/Modifier: 46.58% Currently Impaired in Basic Mobility- CK Assessment & Plan: Patient progressing with improved standing balance this session. Patient able to ambulate CGA this session. Decreased safety insight and poor standing balance making patient high fall risk. Continue to work on standing balance to progress Patient Instruction/Education this session: STS mechanics Plan for next session: Progress with dynamic standing balance Acute PT Goals Plan of Care by Topher Nevarez PT at 07/30/2022 11:40 AM Version 1 of 1 Problem: PT - Balance/Coordination/Neuro Re-Education Goal: Sitting Dynamic/Static Balance Description: Pt will perform seated balance tasks for 15 minutes with independence UE support levelto improve safety with seated tasks. Outcome: Progressing Toward Goal Goal: Standing Dynamic/Static Balance Description: Pt will perform standing balance tasks for 15 minutes with independence with out an assistive device in order to improve functional mobility and safety with standing tasks. Outcome: Progressing Toward Goal Problem: PT - Mobility Goal: Ambulation Description: Pt will ambulate 200 feet with out an assistive device with independence to improve ability to navigate home environment. Outcome: Progressing Toward Goal Goal: Stairs Description: Pt will ascend/descend 12 stairs with out railings with independence with out an assistive device to improve ability to perform functional mobility necessary in recommended discharge environment. Outcome: Progressing Toward Goal Problem: PT - Transfers Goal: Sit <-> Stand Description: Pt will perform sit to/from stand transfers with independence with out an assistive device in order to improve functional mobility and safety. Outcome: Progressing Toward Goal PT treatment consisted of Therapeutic Activity and Gait/Stair Training to work and progress towardsabove goal(s). Treating Therapist: Topher Nevarez PT Additional Details: Co-evaluation/co-treatment performed?: No simultaneous skilled care performed I used facemask, protective eye shield, and gloves in today's patient interaction. Patient location at end of session: bed with head of bed elevated Alarms on at end of session: chair alarm Needs in reach. Time In: 1141 Time Out: 1204 Total Visit Time: 23 minutes Total Treatment Time (skilled, billable minutes): 23 minutes Upon discontinuation of Acute Care Physical Therapy Services or patient discharge from the hospitalthis note represents the current Physical Therapy Discharge Summary. * Dinesh Blackwell APRN-ZACK - 07/30/2022 5:35 AM EST Neurovascular Stroke Service Intracerebral Hemorrhage Note IDENTIFYING INFORMATION Love Skinner MR# [id number] 07/30/2022 HISTORY OF PRESENT ILLNESS Love Skinner is a 67 y.o. male with PMH significant for tobacco use disorder who presented to OSH EDwith nausea, vomiting, and headache found to have interventricular hemorrhage. Symptoms started around 1200 on 07/13/2022 while he was working. He was taken to OSH where CTH demonstrated bilateral IVH L>R. [facility]. He does not take any anticoagulants or antiplatelets. He arrived on cardene drip and SBP less than 140. NIH 3 on arrival for LUE weakness and confusion. INTERVAL HISTORY 07/14: DCA pending today to evaluate for suspected Mcdermott Mcdermott and IVH etiology 07/15: DCA completed, TTE and MRI brain pending 07/18: tx to NVS 07/19: ALIS overnight, TTE pending, IV fluids due to poor oral intake, Fever- urine culture pending, chest xray pending, blood cultures pending . 07/20: Lisinopril increased to 40 mg. Urine culture unremarkable, blood cx pending. Neuro exam stable. 07/21: Blood cultures no growth day 08/30. Neuro exam stable. IV hydration ordered. TTE pending. Coreg started. 07/22: Remove [place] today, continue sitter, coreg increased 07/23: syncopal episode today, repeat CTH stable, replace K and Mag 07/24: Orthostatic change noted in BP with position, ordered GREG hose. 07/25: 1 liter of IV fluids, post void trial today-failed, discontinued Keflex 07/26: [place] replaced d/t failed void trail, urology consulted. ALIS overnight. Neuro exam & VS stable. Seroquel changed to PRN. 07/27: Agitation overnight requiring IM zyprexa plus additional dose of seroquel. Seroquel changed back to scheduled. Melatonin scheduled. 07/28: Decrease AM scheduled seroquel, OOB to chair 07/29: [place] catheter removed, sitter/restraints discontinued 07/30: chest discomfort overnight, ECG/trop/CXR unremarkable, GI cocktail ordered, suspect likely anxiety, resolved this AM PHYSICAL EXAM Gen: awake, alert HEENT: normocephalic, no scalp lesions or tenderness, PERRL, EOMI Neck: trachea midline CV: +S1S2, RRR, no m/r/g Lungs: LCTA bilaterally with equal chest rise Abd: soft, nontender, nondistended, +BS x4 quadrants Extrem: Warm and well perfused, no cyanosis, clubbing, edema Neuro: Oriented to self and place, not situation or time, ARAGON x4, sensation intact and equal bilaterally CN II - All visual ponce intact CN II/III - PERRL CN III/IV/ - EOMI CN V - Light touch to face intact in all 3 divisions CN VII - Facial movement intact and symmetrical bilaterally CN VIII - Hearing intact CN X - Cough present CN XI - muscular movement of shoulders and sternocleidomastoid muscles intact and equal bilaterally CN XII - midline protrusion of tongue MOTOR EXAMINATION: no drift noted. NIHSS Provider NIH Stroke Scale NIH Interval (Provider): daily NIH Level of Conciousness (Provider): 0 NIH LOC Questions (Provider): 2 NIH LOC Commands (Provider): 0 NIH Best Gaze (Provider): 0 NIH Visual (Provider): 0 NIH Facial Palsy (Provider): 0 NIH Left Arm Motor (Provider): 0 NIH Right Arm Motor (Provider): 0 NIH Left Leg Motor (Provider): 0 NIH Right Leg Motor (Provider): 0 NIH Limb Ataxia (Provider): 0 NIH Sensory (Provider): 0 NIH Best Language (Provider): 1 NIH Dysarthria (Provider): 0 NIH Extinction and Inattention (Provider): 0 NIH Total Score (Provider): 3 Intracerebral Hemorrhage Volume Intracerebral Hemorrhage Score Score 30 Day Mortality following ICH 0 0% Mortality 1 13% Mortality 2 26% Mortality 3 72% Mortality 4 97% Mortality 5 100% Mortality ASSESSMENT AND PLAN Neuro: IVH c/b hydrocephalus, Advanced B/L MoyaMoya ICH score 1 CTH on arrival: IVH L > R, stable from outside hospital CTA: no spot sign. 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 -Antiplatelet therapy is not indicated. -Anticoagulation therapy not indicated in hemorrhagic stroke -Patients LDL 131 and HgbA1c p were checked and the patient will be discharged on atorvastatin 80 mg -Dysphagia screening ordered, and will be completed prior to patient receiving oral intake. -Stroke education booklet has been provided both written and verbal education to the patient and family regarding hemorrhagic strokes. We have reviewed the patient's personal modifiable risk factors as well as education on reducing these risk factors. -Patient is being assessed for Rehab by PT/OT/Speech and PM&R if indicated. Near syncpoal episode with orthostatic hypotension -on 07/23 while working with PT: ERT called. CTH without change. SBP dropped from 154 sitting to 89standing -GREG hose ordered -1 liter of IV fluids on 07/25 -Orthostatic precautions including gradual position changes Leukocytosis and Concern for UTI: resolved T Max 100.5 F on 07/19, CXR unremarkable, UA with small leukocytes and 10-20 WBC's, Urine culture no growth. Blood cultures from 07/19 with no growth -Keflex discontinued on 07/25 Headache: resolved, Given reglan IV and magnesium IV 07/19 -Acetaminophen PRN Hyponatremia, hypokalemia, hypomagnesiumia: Likely 2/2 poor oral intake -Replace as needed -Encourage PO intake HLD: -statin as above HTN: Goal SBP < 140 -Lisinopril increased to 40 mg on 07/20 -Norvasc 10 mg, Coreg 12.5 mg BID BPH: Improving -Flomax 0.4mg daily -Urology was consulted due to presence of false tract and they placed [place] on 07/22 -DC [place] 07/29, passed void trial Agitation: Delirium: likely a combination of IVH/hydrocephalus, hospital acquired -Agitated requiring IM zyprexa x1 plus additional dose of seroquel in the evening on 07/26 -Scheduled seroquel changed to PRN on 07/26, switched back to scheduled q12h on 07/27, QTc stable 443 -Seroquel decreased in morning to 12.5 mg daily, 25 mg every evening -Melatonin 6 mg ordered early evening Tobacco use: POA -Nicotine patch -Encourage cessation Love Skinner will likely be discharged to SNF requested, pending acceptance. Dinesh Blackwell, ELYSIA-CHURCH MUSICIAN 07/30/2022 9:52 AM VITAL SIGNS Temp: [97.9 F (36.6 C)-98 F (36.7 C)] 98 F (36.7 C) Pulse (Heart Rate): [66-74] 69 Resp Rate: [14-19] 19 BP: (114-139)/(56-74) 119/74 O2 Sat (%): [95 %-100 %] 95 % IMAGING/DIAGNOSTIC STUDIES XR CHEST PORTABLE Final Result IMPRESSION: No acute findings appreciated. HEAD WITHOUT CONTRAST (Results Pending) .wet MEDICATIONS amLODIPine 10 mg Oral Daily aspirin 81 mg Oral Daily Atorvastatin 80 mg Oral QHS carveDILOL 12.5 mg Oral BID enoxaparin 40 mg Subcutaneous Daily lidocaine 2 patch Transdermal Daily Lisinopril 40 mg Oral Daily Melatonin 6 mg Oral Daily early evening nicotine 1 patch Transdermal Q24H And VERIFY LINKED PATCH PLACEMENT Other Q12H QUEtiapine 12.5 mg Oral Daily QUEtiapine 25 mg Oral QHS senna 8.6 mg Oral Daily Or senna 8.6 mg Per NG tube Daily Tamsulosin HCl 0.4 mg Oral Daily Associated attestation - Love Caceres MD - 07/30/2022 4:51 PM EST Attending Physician Note (GC) I interviewed and examined this patient with the MARKETING SALES SUPERVISOR. I reviewed the history and exam detailed in the note. I agree with the medical decision making with the following comment(s): IVH, likely hypertensive. Clinically stable with improved encephalopathy and agitation, ready for discharge to SNF. . * Tejas Menon OT - 07/29/2022 2:18 PM EST Acute Occupational Therapy Treatment Prior to Admission AM-PAC Score: PRIOR LEVEL AM-PAC Activity Raw Score: 24 PRIOR LEVEL AM-PAC Mobility Raw Score: 24 Current AM-PAC score(s): CURRENT AM-PAC Activity Raw Score: 18 Based on the above AM-PAC score(s), and OT clinical judgment, discharge destination recommendation is: Inpatient Rehab Facility Supporting Factors (would benefit from skilled therapy services): Patient status is anticipated to be appropriate to tolerate inpatient rehab therapy requirements at time of discharge from acute care, Decreased strength, Impaired functional status, Impaired self-care abilities, Decreased endurance,Impaired balance, Fall risk, Impaired cognitive status Mobility equipment available at home: none used ADL equipment available at home: none Equipment recommendations for discharge: to be determined Current therapy frequency recommendation(s) in acute: 5 times a week Precautions and Weightbearing Status: OT Existing Precautions/Restrictions: fall Patient Safety Communication Prior to Visit: Nursing Subjective: Pt agreeable to OT session. Pain: General Pain Documentation (Adult, OB, Peds) Presence of Pain: denies pain/discomfort Objective/Observation: Vitals/Vitals Responses to Treatment: WFL Respiratory Status O2 Device: room air Vision Screen Currently wearing corrective lenses: No Speech Speech: no gross deficits noted Hearing Hearing: no gross deficits noted Cognition Overall Cognitive Status: Impaired Arousal/Alertness: Delayed responses to stimuli Orientation Level: Oriented to person Following Commands: Follows one step commands with increased time Safety Judgment: Decreased awareness of need for assistance Awareness of Errors: Assistance required to identify errors made Deficits: Fully aware of deficits Grooming Assistance: Set up supervision Grooming Location: seated in chair Grooming Deficit: Increased time to complete, Bringing items to mouth/face, Wash/dry face Grooming Skilled Rationale (Verbal/Tactile/Visual/Demonstration): Facilitate positioning, Techniqueof activity Grooming Intervention/Details: Pt washing/drying face while sitting in recliner. Increased time needed and difficulty noted with holding towel to face and rubbing with bilateral hands. Pt dropping towel throughout activity Extremity Assessments: See OT Evaluation flowsheet for Extremity Measurement updates. Balance: Standing Balance Static Standing-Level of Assistance: Contact guard Dynamic Standing-Level of Assistance: Minimum assistance Standing-Balance Support: Gait belt, 2 wheeled walker Skilled Rationale: Positioning, Hand placement, Verbal cues, Technique of activity Standing Balance Skilled Intervention/Details: Pt completing x2 standsfor under 30 seconds on each.Difficulty with standing for increased time due BLE weakness and posterior lean Skin and Edema: Skin Integrity Skin Integrity Description: WFL Edema Edema: not tested Transfer Assessment/Intervention: Sit to Stand Transfer [place] Level: Sit->Stand: minimum assist (75% patient effort) Assistive Device: Sit->Stand: gait belt, 2 wheeled walker Skilled Rationale: Positioning, Hand placement, Verbal cues, Technique of activity Skilled Intervention/Details: Sit->Stand: Pt completed x2 sit to stand from recliner. Pt requring Min A to come to full stand and Mod vcs for hand placement Stand to Sit Transfer [place] Level: Stand->Sit: minimum assist (75% patient effort) Assistive Device: Stand->Sit: gait belt, 2 wheeled walker Skilled Rationale: Positioning, Verbal cues, Technique of activity Skilled Intervention/Details: Stand->Sit: Pt requiring Mod vcs to reach back and release FWW. Ptwith bilateral wood molder in FWW through stand to sit transfer CURRENT -[facility] Daily Activity Inpatient Short Form Putting on/Taking Off Lower Body Clothin - A Little Assistance Bathin - A Lot of Assistance Toiletin - A Little Assistance (toledo removed) Putting on/Taking Off Upper Body Clothin - A Little Assistance Groomin - A Little Assistance Eatin - No Assistance CURRENT AM-[facility] Activity Raw Score: 18 CURRENT AM-[facility] Activity Functional Limitation/Modifier: 46.65% Currently Impaired in Daily Activity- CK Assessment & Plan: Good progression made toward goals. At this time pts biggest barrier to completing ADLs safely and with highest level of function is impaired cognition, motor impairments, and generalized weakness. Pt would benefit from continued skilled OT to increase independence with ADLs and functional mobility. Patient Instruction/Education this session: Patient Instruction: OT role and POC Plan for next session: [place] balance, sink self care tasks Acute OT Goals Plan of Care by Tejas Menon OT at 07/29/2022 2:54 PM Version 1 of 1 Problem: OT - Dressing Goal: Upper Body Dressing Description: Pt will complete UE dressing task seated in chair with minimal assistance for improvedability to complete self-care activities. Outcome: Ongoing Problem: OT - ADLs Goal: Grooming Description: Pt will complete grooming in standing with contact guard assistance for improved ability to safely complete ADLs. Outcome: Ongoing Goal: Feeding Description: Pt will perform self-feeding task while seated with modified independence to promote success and safety during daily routine. Outcome: Ongoing Problem: OT - Balance Goal: Balance - Standing Description: Pt will perform 5 minutes of functional ADL task in standing with minimal assistance and balance level of minimum assist to promote safety and improved balance required for self-care activities. Outcome: Ongoing OT treatment consisted of ADL retraining, IADL retraining, balance training, cognitive training, neuromuscular re-education, strengthening and transfer training to work and progress towards above goal(s). Treating Therapist: Tejas Menon OT Additional Details: Co-evaluation/co-treatment performed?: No simultaneous skilled care performed I used facemask, protective eye shield, and gloves in today's patient interaction. Patient location at end of session: chair Alarms on at end of session: chair alarm Needs in reach. Time In: 1416 Time Out: 1442 Total Visit Time: 26 minutes Total Treatment Time (skilled, billable minutes): 26 minutes Upon discontinuation of Acute Care Occupational Therapy Services or patient discharge from the hospital this note represents the current Occupational Therapy Discharge Summary. * BETH Gonzalez - 07/29/2022 12:02 PM EST Progression of Care Note Expected Discharge Date: 07/30/2022 Medical Milestones Remaining: Pt must be restraint free for 24 hours before discharge. restraints have now been discontinued. Patient Choice for Post-Acute Providers Resumption of care?: No Establishing care?: Yes Level of care for choice: SNF Preferred geographic region: Discussed and honored Source of list: Medicare.gov List was provided to: Spouse Contact: Rajiv Brody Method of delivery: Phone Call Review Anticipated discharge disposition: Senior Care Facility Anticipated Services at Discharge: Physical Therapy, Occupational Therapy, Outpatient follow up, Senior Care, Speech Therapy Barriers to Discharge: Uninsured/Underinsured, Facility/Agency Issue Explanation of Barriers: Awaiting 's SNF choice to review referral. TRUNG Umanzor Production Underwriter [phone] Readmission Risk Score Risk of Readmission: 7 Category Reference: High:16-100 Mod-High:10-16 Mod-Low: 5-10 Low: 0-5 * Annie Hutchins, AUTO MECHANICS TEACHER-CHURCH MUSICIAN - 07/29/2022 9:24 AM EST Neurovascular Stroke Service Intracerebral Hemorrhage Note IDENTIFYING INFORMATION Love Skinner MR# [id number] 07/29/2022 HISTORY OF PRESENT ILLNESS Love Skinner is a 67 y.o. male with PMH significant for tobacco use disorder who presented to [facility]SH EDwith nausea, vomiting, and headache found to have interventricular hemorrhage. Symptoms started around 1200 on 07/13/2022 while he was working. He was taken to OSH where CTH demonstrated bilateral IVH L>R. He was [facility] further work-up. He does not take any anticoagulants or antiplatelets. He arrived on cardene drip and SBP less than 140. NIH 3 on arrival for LUE weakness and confusion. INTERVAL HISTORY 07/14: DCA pending today to evaluate for suspected Mcdermott Mcdermott and IVH etiology 07/15: DCA completed, TTE and MRI brain pending 07/18: tx to NVS 07/19: ALIS overnight, TTE pending, IV fluids due to poor oral intake, Fever- urine culture pending, chest xray pending, blood cultures pending . 07/20: Lisinopril increased to 40 mg. Urine culture unremarkable, blood cx pending. Neuro exam stable. 07/21: Blood cultures no growth day 2/. Neuro exam stable. IV hydration ordered. TTE pending. Coreg started. 07/22: Remove toledo today, continue sitter, coreg increased 07/23: syncopal episode today, repeat CTH stable, replace K and Mag 07/24: Orthostatic change noted in BP with position, ordered GREG edgee. 07/25: 1 liter of IV fluids, post void trial today-failed, discontinued Keflex 07/26: [place] replaced d/t failed void trail, urology consulted. ALIS overnight. Neuro exam & VS stable. Seroquel changed to PRN. 07/27: Agitation overnight requiring IM zyprexa plus additional dose of seroquel. Seroquel changed back to scheduled. Melatonin scheduled. 07/28: Decrease AM scheduled seroquel, OOB to chair 07/29: [place] catheter removed, sitter/restraints discontinued PHYSICAL EXAM Gen: awake, alert HEENT: normocephalic, no scalp lesions or tenderness, PERRL, EOMI Neck: trachea midline CV: +S1S2, RRR, no m/r/g Lungs: LCTA bilaterally with equal chest rise Abd: soft, nontender, nondistended, +BS x4 quadrants Extrem: Warm and well perfused, no cyanosis, clubbing, edema Neuro: Oriented to self and place, not situation or time, ARAGON x4, sensation intact and equal bilaterally CN II - All visual ponce intact CN II/III - PERRL CN III/IV/ - EOMI CN V - Light touch to face intact in all 3 divisions CN VII - Facial movement intact and symmetrical bilaterally CN VIII - Hearing intact CN X - Cough present CN XI - muscular movement of shoulders and sternocleidomastoid muscles intact and equal bilaterally CN XII - midline protrusion of tongue MOTOR EXAMINATION: no drift noted. NIHSS Provider NIH Stroke Scale NIH Interval (Provider): daily NIH Level of Conciousness (Provider): 0 NIH LOC Questions (Provider): 2 NIH LOC Commands (Provider): 0 NIH Best Gaze (Provider): 0 NIH Visual (Provider): 0 NIH Facial Palsy (Provider): 0 NIH Left Arm Motor (Provider): 0 NIH Right Arm Motor (Provider): 0 NIH Left Leg Motor (Provider): 0 NIH Right Leg Motor (Provider): 0 NIH Limb Ataxia (Provider): 0 NIH Sensory (Provider): 0 NIH Best Language (Provider): 0 NIH Dysarthria (Provider): 0 NIH Extinction and Inattention (Provider): 0 NIH Total Score (Provider): 2 Intracerebral Hemorrhage Volume Intracerebral Hemorrhage Score Score 30 Day Mortality following ICH 0 0% Mortality 1 13% Mortality 2 26% Mortality 3 72% Mortality 4 97% Mortality 5 100% Mortality ASSESSMENT AND PLAN Neuro: IVH c/b hydrocephalus, Advanced B/L MoyaMoya ICH score 1 CTH on arrival: IVH L > R, stable from outside hospital CTA: no spot sign. 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 -Antiplatelet therapy is not indicated. -Anticoagulation therapy not indicated in hemorrhagic stroke -Patients LDL 131 and HgbA1c p were checked and the patient will be discharged on atorvastatin 80 mg -Dysphagia screening ordered, and will be completed prior to patient receiving oral intake. -Stroke education booklet has been provided both written and verbal education to the patient and family regarding hemorrhagic strokes. We have reviewed the patient's personal modifiable risk factors as well as education on reducing these risk factors. -Patient is being assessed for Rehab by PT/OT/Speech and PM&R if indicated. Near syncpoal episode with orthostatic hypotension -on 07/23 while working with PT: ERT called. CTH without change. SBP dropped from 154 sitting to 89standing -GREG hose ordered -1 liter of IV fluids on 07/25 -Orthostatic precautions including gradual position changes Leukocytosis and Concern for UTI: resolved T Max 100.5 F on 07/19, CXR unremarkable, UA with small leukocytes and 10-20 WBC's, Urine culture no growth. Blood cultures from 07/19 with no growth -Keflex discontinued on 07/25 Headache: resolved, Given reglan IV and magnesium IV 07/19 -Acetaminophen PRN Hyponatremia, hypokalemia, hypomagnesiumia: Likely 2/2 poor oral intake -Replace as needed -Encourage PO intake HLD: -statin as above HTN: Goal SBP < 140 -Lisinopril increased to 40 mg on 07/20 -Norvasc 10 mg, Coreg 12.5 mg BID BPH: Improving -Flomax 0.4mg daily -Urology was consulted due to presence of false tract and they placed toledo on 07/22 -Failed post void trial. Nursing staff able to place 18F coude catheter placement -Can trial of void prior to discharge: Trial of void: Obtain PVR x 2. Successful void trial is typically voided volume greater than PVR for for two separate voids, PVR < 150cc, or decreasing serial PVRs. If voided amount is less than PVR, repeat a third time to ensure not increasing. If patient does not pass void trial closer to discharge, please replace catheter and page Urology resident bone drier so we can assist with making outpatient appointment. -DC toledo today 07/29, passed void trial Agitation: Delirium: likely a combination of IVH/hydrocephalus, hospital acquired -Agitated requiring IM zyprexa x1 plus additional dose of seroquel in the evening on 07/26 -Scheduled seroquel changed to PRN on 07/26, switched back to scheduled q12h on 07/27, QTc stable 443 -Seroquel decreased in morning to 12.5 mg daily, 25 mg every evening -Melatonin 6 mg ordered early evening Tobacco use: POA -Nicotine patch -Encourage cessation Love Skinner will likely be discharged to SNF requested, pending acceptance. Annie Hutchins, AUTO MECHANICS TEACHER-CHURCH MUSICIAN 07/29/2022 9:24 AM VITAL SIGNS Temp: [98.3 F (36.8 C)] 98.3 F (36.8 C) Pulse (Heart Rate): [70-91] 91 Resp Rate: [15-18] 18 BP: (124-129)/(60-64) 129/64 O2 Sat (%): [94 %] 94 % IMAGING/DIAGNOSTIC STUDIES CT HEAD WITHOUT CONTRAST (Results Pending) .wet MEDICATIONS amLODIPine 10 mg Oral Daily aspirin 81 mg Oral Daily Atorvastatin 80 mg Oral QHS carveDILOL 12.5 mg Oral BID enoxaparin 40 mg Subcutaneous Daily lidocaine 2 patch Transdermal Daily Lisinopril 40 mg Oral Daily Melatonin 6 mg Oral Daily early evening nicotine 1 patch Transdermal Q24H And VERIFY LINKED PATCH PLACEMENT Other Q12H QUEtiapine 12.5 mg Oral Daily QUEtiapine 25 mg Oral QHS senna 8.6 mg Oral Daily Or senna 8.6 mg Per NG tube Daily Tamsulosin HCl 0.4 mg Oral Daily Associated attestation - Love Caceres MD - 07/30/2022 4:51 PM EST Attending Physician Note (GC) I interviewed and examined this patient with the MARKETING SALES SUPERVISOR. I reviewed the history and exam detailed in the note. I agree with the medical decision making with the following comment(s): IVH, likely hypertensive. Clinically stable with improved encephalopathy and agitation, ready for discharge to SNF. * Lilli Dan, PT - 07/28/2022 1:05 PM EST Acute Physical Therapy Treatment PRIOR LEVEL AM-PAC Mobility Raw Score: 24 CURRENT AM-PAC Mobility Raw Score: 14 Based on the above AM-PAC score(s) and PT clinical judgment, patient is a good candidate for discharge to Inpatient Rehab Facility Supporting Factors (would benefit from skilled therapy services): Impaired balance, Fall risk, Impaired functional status Mobility equipment available at home: none used ADL equipment available at home: none Equipment needed for discharge: to be determined Current therapy frequency recommendation in acute: Therapy Frequency: 5 times a week Precautions and Weightbearing Status: Existing Precautions/Restrictions: fall (sitter present) Patient Safety Communication Prior to Visit: Nursing Respiratory Status O2 Device: room air SUBJECTIVE: Pt in chair, agreeable to session. Says it feels good to be up. 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 Pain: General Pain Documentation (Adult, OB, Peds) Presence of Pain: denies pain/discomfort OBJECTIVE: Vitals/Response to Treatment: VSS Cognition Overall Cognitive Status: Impaired Orientation Level: Oriented to person (incorrect month with cues, correct day by looking at whiteboard) Cognition Comments: Confusion & processing delays, frequency redirection, tangential during conversation. Balance: Sitting Balance Static Sitting-Level of Assistance: Supervision Dynamic Sitting-Level of Assistance: Standby Standing Balance Static Standing-Level of Assistance: Minimum assistance Dynamic Standing-Level of Assistance: Moderate assistance, Minimum assistance Standing-Balance Support: Gait belt, 2 wheeled walker Skilled Rationale: Verbal cues, Tactile cues, Full extension to upright positioning/posture, Finding/maintaining midline positioning Standing Balance Skilled Intervention/Details: Pt initially retropulsion in standing with improvement noted as activity progressed and with cues. Repeated cues through entirety of session for uprightposture and walker positioning. Transfers: Sit to Stand Transfer [place] Level: Sit->Stand: minimum assist (75% patient effort) Assistive Device: Sit->Stand: gait belt Skilled Rationale: Verbal cues, Tactile cues, Sequencing, Hand placement, Facilitate anterior shift, Full extension to upright positioning/posture, Upright gaze/neck extension, Initiation and execution of task Skilled Intervention/Details: Sit->Stand: 2 x5reps with extensive cueing and fair carryover. Overal improved quality on 2nd set, progressing from 1 hand on walker 1 hand on chair, to pushing up with both hands from the chair then walker. Stand to Sit Transfer [place] Level: Stand->Sit: minimum assist (75% patient effort) Assistive Device: Stand->Sit: gait belt Skilled Rationale: Verbal cues, Tactile cues, Sequencing, Hand placement, Facilitate anterior shift, Controlled descent for sitting Skilled Intervention/Details: Stand->Sit: reps as above, repeated cues for control with improvement noted tactile facilitation and hand over hand to reach for armrest Gait/Functional Mobility: Gait Assessment [place] Level: Gait: minimum assist (75% patient effort) Assistive Device: Gait: gait belt, 2 wheeled walker Ambulation Distance (Feet): (2x50') Gait Deviations Identified: decreased john, decreased gait speed, decreased step length, flexed posture Gait Skilled Rationale: verbal, tactile, upright posture, hand placement on assistive device, proximity of assistive device, reduce lateral weight shift Skilled Intervention/Details - Gait: Improved fluidity 2nd trial but significant distraction with both trials for walk required cues for attention. ASSESSMENT & PLAN: Pt with some improvement in overall function, good tolerance for activity. Remains confused, limiting progression. Would continue to benefit from skilled PT to progress towards PLOF. Plan for next session: standing balance, transfers, gait PT treatment consisted of Therapeutic Activity and Gait/Stair Training to work and progress towardsgoal(s). Treating Therapist: Lilli Dan PT,DPT,NCS Additional Details: Co-evaluation/co-treatment performed?: No simultaneous skilled care performed I used gloves and facemask in today's patient interaction. Patient location at end of session: chair, sitter present Needs in reach. Time In: 1240 Time Out: 1305 Total Visit Time: 25 minutes Total Treatment Time (skilled, billable minutes): 25 minutes Upon discontinuation of Acute Care Physical Therapy Services or patient discharge from the hospitalthis note represents the current Physical Therapy Discharge Summary. Acute PT Goals Plan of Care by Lilli Dan PT at 07/28/2022 1:05 PM Version 1 of 1 Problem: PT - Balance/Coordination/Neuro Re-Education Goal: Standing Dynamic/Static Balance Description: Pt will perform standing balance tasks for 15 minutes with independence with out an assistive device in order to improve functional mobility and safety with standing tasks. Outcome: Progressing Toward Goal Problem: PT - Mobility Goal: Ambulation Description: Pt will ambulate 200 feet with out an assistive device with independence to improve ability to navigate home environment. Outcome: Progressing Toward Goal Problem: PT - Transfers Goal: Sit <-> Stand Description: Pt will perform sit to/from stand transfers with independence with out an assistive device in order to improve functional mobility and safety. Outcome: Progressing Toward Goal * Lilli Dan PT - 07/28/2022 11:02 AM EST Physical Therapy Attempt Note 07/28/2022 PT Therapy Completed: Attempted Attempted Reason: Other (see comments) (pt too lethargic/sleepy to actively particpate, agreeable to reattempt later) Lilli Dan PT Time In: 1052 Time Out: 1101 Total Visit Time: 9 minutes Total Treatment Time (skilled, billable minutes): 4 minutes * BETH Novak - 07/28/2022 10:44 AM ESTSummary: Discharge Plan Placement Plan Expected Discharge Date: 07/29/2022 Referred Level of Care: SNF Patient Choice for Post-Acute Providers Barriers: private pay, bed available and transportation Current Referrals and Status 1. [facility] Please see [place] Note-07/28/22. BRIDGET Novak, [facility] International Sales Representative [phone] * BETH Novak - 07/28/2022 10:27 AM ESTSummary: Discharge Plan [place] spoke with patient's spouse, Rajiv Skinner and she confirmed she would like a SNF referral sent to [facility] in [place] for their review. Spouse has spoken with [facility] and they are aware that a referral will be sent and spouse will have to pay for first 30 days up front. Spouse reported she has reached out to Medicare to start process for health coverage but does not know when or how long it will take. [place]SEY informed spouse that she will keep her updated on discharge date and plan. BRIDGET Novak, [facility] International Sales Representative [phone] * BETH Gonzalez - 07/28/2022 9:55 AM EST Focused Assessment for Discharge Planning Patient is here for stroke-work up. Initial Discharge Planning Anticipated discharge disposition: Senior Care Facility Transportation Available for Discharge: Ambulance Anticipated DME: none Anticipated Services at Discharge: Physical Therapy, Occupational Therapy, Outpatient follow up, Senior Care, Speech Therapy Patient Assessment Completed: Focused Advanced Care Planning Assessment Advanced Care Planning Has the patient completed Advance Directives?: Not Completed Referral to Social Work for Advance Care Planning? : (Pt has AMS) HCPOA Agent(s): N/A Legal Next of Kin: 1. Rajiv [id number]-[phone] Financial Resources Insurance: No Prescription Coverage: No Resources Needed: No Resources Provided: Living Environment and Support System Pt lives at home with his . Patient Resources Prior to Admission Post-acute Services: no Community Resources: no DME: no CM spoke to Pt's over the telephone to complete initial assessment as Pt has AMS. CM explainedthe levels of care. Pt's understands that recommendations are for IPR, but she wants Pt to to discharge to a SNF closer to home. [facility] name [facility], and Pt's has spoken to the facility regarding paying privately. CM informed SW. TRUNG [employer] [phone] * Candelaria Almodovar MICROBIOLOGICAL LAB TECHNICIAN - 07/28/2022 9:52 AM EST Acute Care Speech Language Pathology Treatment Best mode of Communication: verbal Communication Strategies: provide education in writing and/or to family as pt's impaired attention/memory are barriers to his carry over of new information/learning at this time Discharge Recommendations: Based on the below outcome measures/assessment score(s) and MICROBIOLOGICAL LAB TECHNICIAN clinicaljudgment, discharge destination recommendation is: [facility]. Patient would require 24/7 assist if he were to discharge home given impulsivity and lack of insight into his deficits Barriers to discharge home: Cognitive impairments that impact safety and independence Supporting factors for discharge setting: Impaired cognitive skills limiting safety/insight, Impaired cognitive skills limiting functional problem solving in immediate environment, Impaired cognitiveskills limiting independence Acute MICROBIOLOGICAL LAB TECHNICIAN Outcomes Tracking Communicate basic wants and needs?: yes Demo insight/appreciation of deficits?: no Complete basic problem solving?: no Current therapy frequency recommendation in acute: Speech/Lang/Cog Therapy Frequency: 3 times a week Clinical Impression: Ongoing moderate cognitive-comunicative impairments in the setting of acute IVH. Able to express his wants/needs. Impaired attention with perseveration, tangents and impulsivity. He identified lability/tearfulness as a frustration. Impaired immediate and short term recall. Oriented to self and 2022, though required leading or multiple choice cues for all other orientation topics this date. No recall of education from primary team or tasks/education completed with PT/OT. Of note, he described prior head trauma following a fall with head strike. He denied any medical workup for this fall or therapy services. Endorsed fogginess and impaired short term memory for a few months post fall. Subjective: alert, cooperative, upright in chair with sitter present. Insightful into head bleed Pain: Nonverbal indicator not present Lines/Drains/Tubes: Lines/Tubes/Drains (Rehab Status): Telemetry Respiratory Status: Room air Acute MICROBIOLOGICAL LAB TECHNICIAN Goals Plan of Care by Candelaria Almodovar, MICROBIOLOGICAL LAB TECHNICIAN at 07/28/2022 9:51 AM Version 1 of 1 Problem: MICROBIOLOGICAL LAB TECHNICIAN - Cognition Goal: Memory Goal 1 Description: Patient will utilize compensatory memory strategies to teach back at least 3 facts related to their hospitalization/POC across a 5 minute delay across at least 2 consecutive sessions to support generalization of strategy use and pt's self-advocacy, min cues by discharge. Despite visible handouts and walker in room, patient did not identify resources provided by PT/OT, recommendations for assistance with walker for mobility or therapy goals. Probed his baseline use ofstrategies and he shrugged. Perseverative on the of his grandson and minimally redirectable to target memory strategies therefore, transitioned to concrete/present problem solving tasks. Outcome: Ongoing Goal: Problem Solving Goal 1 Description: Patient will complete basic problem solving tasks in at least 3/5 of opportunities in their immediate environment to support self-advocacy and independence, given min cues across 2 consecutive sessions by discharge. Addressed via use of call light, manipulating tray table, use of chair controls, obtaining assistance from sitter and contacting family. Patient with min - max verbal cues across tasks and unable to fade immediately after each trial. Perseverative errors using call light to change tv channel, though no awareness of his prior error. This pattern was consistent across tasks. Suspect attention was his barrier as he initially attempted to complete task then appeared immediately distracted. Outcome: Ongoing Goal: Meticognition Goal 1 Description: Patient will identify at least 3 deficits related to medical condition and how deficits will impact ability to return home with min cues across 2-3 sessions to improve insight and safety. He identified lability/tearfulness and was perseverative on this topic this session. He denied any difficulty with ambulation, balance, self-care. Inconsistent reports of memory as he denied changes,though also stated he does not recall hospital events/discharge plan. Outcome: Ongoing Goal: Orientation Goal Description: Patient will recall/implement use of orientation strategies, given min -no cues, to demonstrate improved awareness and insight as measured by achieving a 27/30 on The Orientation Log, across 1-2 sessions. The Orientation Log (O-Log) is designed to be a quick quantitative measure of orientational status for use at bedside with rehabilitation inpatients. Place, time, and situational (Etiology/Event + Pathology/Deficits) domains are assessed. Patient responses are scored according to the following criteria: 3 = correct spontaneously or upon first free recall attempt; 2 = correct upon logical cueing (e.g., That was yesterday, so today must be ); 1 = correct upon multiple choice or phonemic cuing; and 0 = incorrect despite cueing, inappropriate response, or unable to respond. Patient scored TotalScore: this date. Outcome: Ongoing Patient Instruction/Education this session: role of cee GRADY for rehab following discharge Plan for next session: continue PoC, family education as able I used facemask and protective eye shield in today's patient interaction. Speech Language Pathologist: MIGUEL A Krueger Time In: 909 Time Out: 934 Total Visit Time: 25 minutes Total Treatment Time (skilled, billable minutes): 25 minutes Patient location at end of session: chair Alarms on at end of session: chair alarm and sitter present Needs in reach. Upon discontinuation of Acute Care Speech Therapy Services or patient discharge from the hospital this note represents the current Speech Therapy Discharge Summary * Dolores Schuler APRN-CHURCH MUSICIAN - 07/28/2022 7:28 AM EST Neurovascular Stroke Service Intracerebral Hemorrhage Note IDENTIFYING INFORMATION Love Skinner MR# [id number] 07/28/2022 HISTORY OF PRESENT ILLNESS Love Skinner is a 67 y.o. male with PMH significant for tobacco use disorder who presented to [facility]SH EDwith nausea, vomiting, and headache found to have interventricular hemorrhage. Symptoms started around 1200 on 07/13/2022 while he was working. He was taken to OSH where CTH demonstrated bilateral IVH L>R. He was transferred to [facility] further work-up. He does not take any anticoagulants or antiplatelets. He arrived on cardene drip and SBP less than 140. NIH 3 on arrival for LUE weakness and confusion. INTERVAL HISTORY 07/14: DCA pending today to evaluate for suspected Mcdermott Mcdermott and IVH etiology 07/15: DCA completed, TTE and MRI brain pending 07/18: tx to NVS 07/19: ALIS overnight, TTE pending, IV fluids due to poor oral intake, Fever- urine culture pending, chest xray pending, blood cultures pending . 07/20: Lisinopril increased to 40 mg. Urine culture unremarkable, blood cx pending. Neuro exam stable. 07/21: Blood cultures no growth day 08/30. Neuro exam stable. IV hydration ordered. TTE pending. Coreg started. 07/22: Remove [place] today, continue sitter, coreg increased 07/23: syncopal episode today, repeat CTH stable, replace K and Mag 07/24: Orthostatic change noted in BP with position, ordered GREG hose. 07/25: 1 liter of IV fluids, post void trial today-failed, discontinued Keflex 07/26: [place] replaced d/t failed void trail, urology consulted. ALIS overnight. Neuro exam & VS stable. Seroquel changed to PRN. 07/27: Agitation overnight requiring IM zyprexa plus additional dose of seroquel. Seroquel changed back to scheduled. Melatonin scheduled. 07/28: Decrease AM scheduled seroquel, OOB to chair, PHYSICAL EXAM Gen: awake, alert HEENT: normocephalic, no scalp lesions or tenderness, PERRL, EOMI Neck: trachea midline CV: +S1S2, RRR, no m/r/g Lungs: LCTA bilaterally with equal chest rise Abd: soft, nontender, nondistended, +BS x4 quadrants Extrem: Warm and well perfused, no cyanosis, clubbing, edema Neuro: Oriented to self and place, not situation or time, ARAGON x4, sensation intact and equal bilaterally CN II - All visual ponce intact CN II/III - PERRL CN III/IV/ - EOMI CN V - Light touch to face intact in all 3 divisions CN VII - Facial movement intact and symmetrical bilaterally CN VIII - Hearing intact CN X - Cough present CN XI - muscular movement of shoulders and sternocleidomastoid muscles intact and equal bilaterally CN XII - midline protrusion of tongue MOTOR EXAMINATION: no drift noted. NIHSS Provider NIH Stroke Scale NIH Interval (Provider): daily NIH Level of Conciousness (Provider): 0 NIH LOC Questions (Provider): 0 NIH LOC Commands (Provider): 0 NIH Best Gaze (Provider): 0 NIH Visual (Provider): 0 NIH Facial Palsy (Provider): 0 NIH Left Arm Motor (Provider): 0 NIH Right Arm Motor (Provider): 0 NIH Left Leg Motor (Provider): 0 NIH Right Leg Motor (Provider): 0 NIH Limb Ataxia (Provider): 0 NIH Sensory (Provider): 0 NIH Best Language (Provider): 0 NIH Dysarthria (Provider): 0 NIH Extinction and Inattention (Provider): 0 NIH Total Score (Provider): 0 Intracerebral Hemorrhage Volume Intracerebral Hemorrhage Score Score 30 Day Mortality following ICH 0 0% Mortality 1 13% Mortality 2 26% Mortality 3 72% Mortality 4 97% Mortality 5 100% Mortality ASSESSMENT AND PLAN Neuro: IVH c/b hydrocephalus, Advanced B/L MoyaMoya ICH score 1 CTH on arrival: IVH L > R, stable from outside hospital CTA: no spot sign. 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 -Antiplatelet therapy is not indicated. -Anticoagulation therapy not indicated in hemorrhagic stroke -Patients LDL 131 and HgbA1c p were checked and the patient will be discharged on atorvastatin 80 mg -Dysphagia screening ordered, and will be completed prior to patient receiving oral intake. -Stroke education booklet has been provided both written and verbal education to the patient and family regarding hemorrhagic strokes. We have reviewed the patient's personal modifiable risk factors as well as education on reducing these risk factors. -Patient is being assessed for Rehab by PT/OT/Speech and PM&R if indicated. Near syncpoal episode with orthostatic hypotension -on 07/23 while working with PT: ERT called. CTH without change. SBP dropped from 154 sitting to 89standing -GREG maynard ordered -1 liter of IV fluids on 07/25 -Orthostatic precautions including gradual position changes Leukocytosis and Concern for UTI: T Max 100.5 F on 07/19, CXR unremarkable, UA with small leukocytes and 10-20 WBC's, Urine culture no growth. Blood cultures from 07/19 with no growth -Keflex discontinued on 07/25 Headache: improved, Given reglan IV and magnesium IV 07/19 -Acetaminophen PRN Hyponatremia, hypokalemia, hypomagnesiumia: Likely 2/2 poor oral intake -Replace as needed -Encourage PO intake HLD: -statin as above HTN: Goal SBP < 140 -Lisinopril increased to 40 mg on 07/20 -Norvasc 10 mg, Coreg 12.5 mg BID BPH: Improving -Flomax 0.4mg daily -Urology was consulted due to presence of false tract and they placed [place]o on 07/22 -Failed post void trial. Nursing staff able to place 18F coude catheter placement -Can trial of void prior to discharge: Trial of void: Obtain PVR x 2. Successful void trial is typically voided volume greater than PVR for for two separate voids, PVR < 150cc, or decreasing serial PVRs. If voided amount is less than PVR, repeat a third time to ensure not increasing. If patient does not pass void trial closer to discharge, please replace catheter and page Urology resident bone drier so we can assist with making outpatient appointment. -DC [place]o today 07/28 Agitation: Delirium: likely a combination of IVH/hydrocephalus, hospital acquired -Agitated requiring IM zyprexa x1 plus additional dose of seroquel in the evening on 07/26 -Scheduled seroquel changed to PRN on 07/26, switched back to scheduled q12h on 07/27, QTc stable 443 -Seroquel decreased in morning to 12.5 mg daily, 25 mg every evening -Melatonin 6 mg ordered early evening Tobacco use: POA -Nicotine patch -Encourage cessation Love Skinner will likely be discharged to [facility] requested, pending acceptance. Dolores Schuler, AUTO MECHANICS TEACHER-CHURCH MUSICIAN 07/28/2022 7:28 AM VITAL SIGNS Temp: [97.6 F (36.4 C)-98.2 F (36.8 C)] 98.2 F (36.8 C) Pulse (Heart Rate): [70-71] 70 Resp Rate: [16-17] 16 BP: (99-143)/(53-73) 99/53 O2 Sat (%): [97 %-100 %] 97 % IMAGING/DIAGNOSTIC STUDIES No orders to display MEDICATIONS amLODIPine 10 mg Oral Daily aspirin 81 mg Oral Daily Atorvastatin 80 mg Oral QHS carveDILOL 12.5 mg Oral BID lidocaine 2 patch Transdermal Daily Lisinopril 40 mg Oral Daily Melatonin 6 mg Oral Daily early evening nicotine 1 patch Transdermal Q24H And VERIFY LINKED PATCH PLACEMENT Other Q12H QUEtiapine 25 mg Oral Q12H senna 8.6 mg Oral Daily Or senna 8.6 mg Per NG tube Daily Tamsulosin HCl 0.4 mg Oral Daily Associated attestation - Love Caceres MD - 07/29/2022 7:28 AM EST Attending Physician Note (GC) I interviewed and examined this patient with the MARKETING SALES SUPERVISOR. I reviewed the history and exam detailed in the note. 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 Suspect that the mechanism of occlusion is atherosclerotic and thus low enthusiasm for revascularization in the context of bilateral carotid occlusions. Will continue to maximize cerebral perfusion and focus on long-term blood pressure control. * Minerva Prakash, PT - 07/26/2022 11:17 AM EST Acute Physical Therapy Evaluation Prior to Admission [facility] score(s): PRIOR LEVEL AM-PAC Mobility Raw Score: 24 Current AM-PAC score(s): CURRENT AM-PAC Mobility Raw Score: 9 Based on the above AM-PAC score(s) and PT clinical judgment, patient is a good candidate for discharge to Inpatient Rehab Facility Supporting Factors (would benefit from skilled therapy services): Impaired balance, Fall risk, Impaired functional status Mobility equipment available at home: none used ADL equipment available at home: none Equipment needed for discharge: to be determined Current therapy frequency recommendation in acute: Therapy Frequency: 5 times a week Precautions and Weightbearing Status: Existing Precautions/Restrictions: fall Telemetry Patient Safety Communication Prior to Visit: Rehab team, Nursing Subjective: Pt received seated in chair awake after recently sleeping with initial request to hold on therapy from RN Pain: General Pain Documentation (Adult, OB, Peds) Presence of Pain: denies pain/discomfort Home Setting Residence: House Lives With: spouse First floor setup: bedroom, tub shower Second floor setup: bedroom, walk in shower Number of stairs to enter home: (1 flight) Number of stairs in home: 12 Mobility Equipment Available: none used ADL Equipment Available: none Home Environment Details: house built into a hill Previous Level of Function Prior level ADL Overview: Independent with all ADLs 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 Objective/Observation: Vitals/Vitals Responses to Treatment: no concerns Respiratory Status O2 Device: room air Cognition Overall Cognitive Status: Impaired Arousal/Alertness: Appropriate responses to stimuli Orientation Level: Oriented to person (able to answer place, time and situation as arousal improved) Following Commands: Follows commands 50-75% of the time Safety Judgment: Decreased awareness of need for assistance Awareness of Errors: Decreased awareness of errors Deficits: Decreased awareness of deficits Attention Span: Attends with cues to redirect Memory: Decreased recall of biographical information, Decreased recall of recent events Problem Solving: Assistance required to identify errors made, Assistance required to generate solutions, Assistance required to implement solutions Cognition Comments: Pt with fluctuating cognition throughout session. One minute alert to self, thenext able to answer all orientation questions independently Vision Screen Currently wearing corrective lenses: No Speech Speech: no gross deficits noted Hearing Hearing: no gross deficits noted Extremity Assessments: RLE Assessment RLE Assessment: (Pt demonstrates clonus type movements with prolonged standing) LLE Assessment LLE Assessment: (Pt demonstrates clonus type movements with prolonged standing) Skin Integrity Skin Integrity Description: WFL Edema Edema: none noted Mobility Assessment: Balance: Sitting Balance Static Sitting-Level of Assistance: Standby Dynamic Sitting-Level of Assistance: Contact guard Skilled Rationale: Verbal cues, Technique of activity Standing Balance Static Standing-Level of Assistance: Minimum assistance, 2-person assist Dynamic Standing-Level of Assistance: Moderate assistance, 2-person assist Standing-Balance Support: Gait belt, Bilateral hand held assist Skilled Rationale: Technique of activity, Full extension to upright positioning/posture, Finding/maintaining midline positioning Standing Balance Skilled Intervention/Details: Pt demonstrating clonus type movement of B LEs during standing episodes x2 for 60-90 seconds. Pt requires significant physical A to safely return to seated position with note of B UE clonus flexion type movement pattern Transfer Assessment: Sit to Stand Transfer [place] Level: Sit->Stand: moderate assist (50% patient effort) Physical Assist: Sit->Stand: 2 person assist Assistive Device: Sit->Stand: gait belt, hand held assist Skilled Rationale: Positioning, Sequencing, Arm in arm Skilled Intervention/Details: Sit->Stand: x2 from chair Stand to Sit Transfer [place] Level: Stand->Sit: maximum assist (25% patient effort) Physical Assist: Stand->Sit: 2 person assist Assistive Device: Stand->Sit: gait belt, hand held assist Skilled Intervention/Details: Stand->Sit: Pt with clonus type movements from B LEs and requires max assist from PT and OT to safely return to seated position Gait/Functional Mobility: Stairs: Outcome Score(s): CURRENT [facility] Basic Mobility Inpatient Short Form Turning over in bed: 2 - A Lot of Assistance Sitting/standing from chair: 2 - A Lot of Assistance Moving from lying on back to sittin - A Lot of Assistance Moving to and from bed to chair: 1 - Total Assistance Walk in hospital room: 1 - Total Assistance Climbing 3-5 steps with a railin - Total Assistance CURRENT [facility] Mobility Raw Score: 9 CURRENT [facility] Mobility Functional Limitation/Modifier: 81.38% Currently Impaired in Basic Mobility- CM Interventions: Assessment & Plan: Patient was admitted for interventricular hemmorhage and seen for therapy evaluation related to decline in independent functional mobility. Exam findings include impairments in: Balance, Coordination, Sensation, Posture, Transfers, Gait/Locomotion. These impairments contribute to functional limitations including Decreased ambulation distance/endurance, Difficulty stair climbing/descent, Increased fall risk, Limited standing tolerance, Difficulty getting off the floor, Difficulty with transfers, Difficulty with bed mobility, Decreasedfunctional mobility. Current clinical presentation is Evolving - changing/inconsistent clinical characteristics (Moderate). Patient history factors impacting Plan Of Care include Impaired cognition. Patient will benefit from skilled physical therapy to address these impairments, functional limitations, and participation restrictions and has good rehab potential to achieve therapy goals. Planned Therapy Interventions: balance training, bed mobility training, endurance, functional activity tolerance, gait training, strengthening, transfer training, neuromuscular re-education, motor coordination training Patient Instruction/Education this session: transfers Plan for next session: Progress OOB as appropriate Acute PT Goals Plan of Care by Minerva Prakash PT at 07/26/2022 11:17 AM Version 1 of 1 Problem: PT - Balance/Coordination/Neuro Re-Education Goal: Sitting Dynamic/Static Balance Description: Pt will perform seated balance tasks for 15 minutes with independence UE support levelto improve safety with seated tasks. Outcome: Ongoing Goal: Standing Dynamic/Static Balance Description: Pt will perform standing balance tasks for 15 minutes with independence with out an assistive device in order to improve functional mobility and safety with standing tasks. Outcome: Ongoing Problem: PT - Mobility Goal: Ambulation Description: Pt will ambulate 200 feet with out an assistive device with independence to improve ability to navigate home environment. Outcome: Ongoing Goal: Stairs Description: Pt will ascend/descend 12 stairs with out railings with independence with out an assistive device to improve ability to perform functional mobility necessary in recommended discharge environment. Outcome: Ongoing Problem: PT - Transfers Goal: Sit <-> Stand Description: Pt will perform sit to/from stand transfers with independence with out an assistive device in order to improve functional mobility and safety. Outcome: Ongoing Goal: Strength/ROM Description: Pt will perform 2 sets of 15 repetitions of lower bilateral extremity exercises with independence in order to improve strength, maintain ROM, necessary for functional mobility. Outcome: Ongoing PT treatment consisted of Therapeutic Activity to work and progress towards above goal(s). Evaluating Therapist: Minerva Prakash PT Additional Details: Co-evaluation/co-treatment performed?: Yes, simultaneous billable skilled care This co-evaluation session performed between PT and OT was beneficial, necessary and provided distinct services in establishing this person's individual plan of care. Medical complexity with functional deficits necessitated two skilled therapy disciplines working concurrently to determine each discipline's goals. This co-treatment was medically necessary due to patient's: Cognitive issues, Coordination issues, Postural control and Alertness/arousal I used facemask, protective eye shield, and gloves in today's patient interaction. Evaluation Complexity Components History: Moderate (1-2 personal factors and/or comorbidities) Body Systems Review: Moderate (Addressing a total of 3 or more elements) Clinical Presentation: Evolving - changing/inconsistent clinical characteristics (Moderate) Clinical Decision Making: Moderate Time In: 0945 Time Out: 1005 Total Visit Time: 20 minutes Total Treatment Time (skilled, billable minutes): 20 minutes Patient location at end of session: chair Alarms on at end of session: chair alarm and RN aware Needs in reach. Upon discontinuation of Acute Care Physical Therapy Services or patient discharge from the hospitalthis note represents the current Physical Therapy Discharge Summary. * Divina Larkin, OT - 07/26/2022 10:09 AM EST Acute Occupational Therapy Evaluation Prior to Admission AM-PAC Score: PRIOR LEVEL AM-PAC Activity Raw Score: 24 Current AM-PAC score(s): CURRENT AM-PAC Activity Raw Score: 13 Based on the above AM-PAC score(s) and OT clinical judgment, discharge destination recommendation is: Inpatient Rehab Facility Supporting Factors (would benefit from skilled therapy services): Patient status is anticipated to be appropriate to tolerate inpatient rehab therapy requirements at time of discharge from acute care, Impaired functional status, Decreased strength, Impaired balance, Decreased endurance, Impaired cognitive status, Impaired self-care abilities, Assistance needed with functional mobility, Fall risk,Recent decline in functional mobility, Recent decline in self-care abilities, Recent decline in cognitive function, Patient has appropriate assistance and setup at home for ultimate discharge to homeonce patient has progressed functionally following inpatient rehab Mobility equipment available at home: none used ADL equipment available at home: none Equipment recommendations for discharge: to be determined Current therapy frequency recommendation(s) in acute: 5 times a week Precautions and Weightbearing Status: OT Existing Precautions/Restrictions: fall Telemetry Patient Safety Communication Prior to Visit: Rehab team, Nursing Subjective: I almost , I had a stroke when asked why he was in the hospital. 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 Respiratory Status O2 Device: room air Vision Screen Currently wearing corrective lenses: No Speech Speech: no gross deficits noted Hearing Hearing: no gross deficits noted Cognition Overall Cognitive Status: Impaired Arousal/Alertness: Inconsistent responses to stimuli Orientation Level: Oriented to person, Oriented to place, Oriented to situation, Oriented to time Following Commands: Follows commands 50-75% of the time Safety Judgment: Decreased awareness of need for assistance, Decreased awareness of need for safety Awareness of Errors: Decreased awareness of errors Deficits: Decreased awareness of deficits Attention Span: Difficulty dividing attention Memory: Decreased recall of biographical information Problem Solving: Assistance required to generate solutions, Assistance required to identify errors made Cognition Comments: Pt with fluctuating cognition throughout session. One minute alert to self onlyand attempting to stand by self, the next able to answer all orientation questions independently and able to recall safety info ADLs: ADL Anticipated Performance (ADLs not directly observed this session): Bathing Eating Assistance: Minimal Eating Location: chair Eating Deficit: Opening/closing containers Eating Skilled Rationale (Verbal/Tactile/Visual/Demonstration): Maintain precautions Eating Intervention/Details: unaware of deficits Grooming Assistance: Minimal Grooming Location: seated in chair Grooming Deficit: Opening/closing containers Grooming Skilled Rationale (Verbal/Tactile/Visual/Demonstration): Maintain precautions Grooming Intervention/Details: attempting unsafe standing Bathing Assistance: Maximal UE Dressing Assistance: Maximal UE Dressing Location: seated in chair UE Dressing Deficit: Thread LUE, Thread RUE UE Dressing Skilled Rationale (Verbal/Tactile/Visual/Demonstration): Technique of activity UE Dressing Intervention/Details: shaking during movement LE Dressing Assistance: Total LE Dressing Location: seated in chair LE Dressing Deficit: Don/doff L sock, Don/doff R sock LE Dressing Skilled Rationale (Verbal/Tactile/Visual/Demonstration): Technique of activity LE Dressing Intervention/Details: tremor with attempted standing Toilet Assistance: Other (Comment) Toileting Intervention/Details: toledo in place, no need for bed jimenez Extremity Assessments: RUE Assessment RUE Assessment: (ROM and strength WFL, but significantly limited motor planning) LUE Assessment LUE Assessment: (ROM and strength WFL, but significantly limited motor planning) Balance: Sitting Balance Static Sitting-Level of Assistance: Standby Dynamic Sitting-Level of Assistance: Contact guard Sitting Balance Skilled Intervention/Details: decreased safety awareness Standing Balance Static Standing-Level of Assistance: Moderate assistance, 2-person assist Dynamic Standing-Level of Assistance: Maximum assistance Standing-Balance Support: Bilateral hand held assist Standing Balance Skilled Intervention/Details: When in standing, demonstrating clonus/shaking Neuro: Sensation Sensation Comments: denies numbness/tingles Proprioception Proprioception: intact Gross Coordination Gross Coordination: LUE impaired, RUE impaired Fine Motor Coordination Additional Documentation: Yes Fine Motor Coordination Left Hand, Finger To Nose: mild impairment Right Hand, Finger To Nose: mild impairment Left Hand Thumb/Finger Opposition Skills: moderate impairment Right Hand Thumb/Finger Opposition Skills: moderate impairment Left Hand, Manipulation of Objects: moderate impairment Right Hand, Manipulation of Objects: moderate impairment Skin and Edema: Mobility Assessment: Transfer Assessment: Sit to Stand Transfer [place] Level: Sit->Stand: moderate assist (50% patient effort) Physical Assist: Sit->Stand: 2 person assist Assistive Device: Sit->Stand: gait belt Skilled Rationale: Cues for increased safety Skilled Intervention/Details: Sit->Stand: limited awareness of safety limitations at time Stand to Sit Transfer [place] Level: Stand->Sit: maximum assist (25% patient effort) Physical Assist: Stand->Sit: 2 person assist Assistive Device: Stand->Sit: gait belt Skilled Rationale: Cues for increased safety Skilled Intervention/Details: Stand->Sit: limited awareness of shaking Functional Mobility: Outcome Score(s): CURRENT [facility] Daily Activity Inpatient Short Form Putting on/Taking Off Lower Body Clothin - Total Assistance Bathin - A Lot of Assistance Toiletin - A Lot of Assistance Putting on/Taking Off Upper Body Clothin - A Lot of Assistance Groomin - A Little Assistance Eatin - A Little Assistance CURRENT -[facility] Activity Raw Score: 13 CURRENT AM-[facility] Activity Functional Limitation/Modifier: 63.03% Currently Impaired in Daily Activity- CL Interventions: Assessment & Plan: Patient was admitted for CVA and seen for therapy evaluation related to concerns with ability to complete safe ADLs. Pt transferred from [facility]. Exam findings include impairments in: attention, balance, cognitive impairments, coordination, motor function, muscle performance, posture, strength, transfers. These impairments contribute to occupational performance limitations including bathing, dressing, grooming, toileting, functional mobility. The following factors impact the plan of care: Patient will benefit from skilled occupational therapy to address these impairments, occupational performance limitations, and participation restrictions. Patient's rehab potential is: good, to achieve stated therapy goals. Planned Therapy Interventions (OT Eval): ADL retraining, balance training, cognitive training, functional activity tolerance, transfer training, motor coordination training Patient Instruction/Education this session: Patient Instruction: the role of OT, need to have assist with OOB, plan of care Plan for next session: Standing grooming Acute OT Goals Plan of Care by Divina Larkin OT at 07/26/2022 5:18 PM Version 1 of 1 Problem: OT - Dressing Goal: Upper Body Dressing Description: Pt will complete UE dressing task seated in chair with minimal assistance for improvedability to complete self-care activities. Outcome: Ongoing Problem: OT - ADLs Goal: Grooming Description: Pt will complete grooming in standing with contact guard assistance for improved ability to safely complete ADLs. Outcome: Ongoing Goal: Feeding Description: Pt will perform self-feeding task while seated with modified independence to promote success and safety during daily routine. Outcome: Ongoing Problem: OT - Balance Goal: Balance - Standing Description: Pt will perform 5 minutes of functional ADL task in standing with minimal assistance and balance level of minimum assist to promote safety and improved balance required for self-care activities. Outcome: Ongoing OT treatment consisted of ADL retraining, balance training and motor coordination training to work and progress towards above goal(s). Evaluating Therapist: Divina Larkin OT Additional Details: Co-evaluation/co-treatment performed?: Yes, simultaneous billable skilled care This co-evaluation session performed between OT and PT was beneficial, necessary and provided distinct services in establishing this person's individual plan of care. Medical complexity with functional deficits necessitated two skilled therapy disciplines working concurrently to determine each discipline's goals. This co-treatment was medically necessary due to patient's: Cognitive issues, Coordination issues and Postural control I used gloves and facemask in today's patient interaction. OT Evaluation Complexity Occupational Profile and Client History: Assessment of Occupational Performance: Clinical Decision/Performance Deficits: Time In: 0946 Time Out: 1009 Total Visit Time: 23 minutes Total Treatment Time (skilled, billable minutes): 23 minutes Patient location at end of session: chair Alarms on at end of session: chair alarm and RN aware Needs in reach. Upon discontinuation of Acute Care Occupational Therapy Services or patient discharge from the hospital this note represents the current Occupational Therapy Discharge Summary. Divina Larkin MS OTR/L License [id number] * Minerva Prakash PT - 07/26/2022 9:42 AM EST Physical Therapy Attempt Note 07/26/2022 PT Therapy Completed: Attempted Attempted Reason: Other (see comments) Pt just finally fell asleep and per RN request hold therapy assessment at this time. Minerva Prakash PT Time In: 941 Time Out: 941 Total Visit Time: 0 minutes Total Treatment Time (skilled, billable minutes): [facility] of Present illness Narrative* BETH Gonzalez - 07/31/2022 12:23 PM EST Final Discharge Planning Final Discharge Planning Discharge Disposition: Senior Care Facility Services at Discharge: Speech Therapy, Senior Care, Occupational Therapy, Physical Therapy Selected Continued Care - Admitted Since 07/25/2022 No services have been selected for the patient. Community Agency Name(s) For Handoff: [facility] Phone For Handoff: Fax For Handoff: Additional Community Agency Name(s): no Plan Plan: Discharge to SNF Patient/Family In Agreement With Plan: yes AVS is complete per CM's viewpoint. Follow-up neurology, neurosurgery and CT appointments are scheduled. to schedule urology appointment. to transport Pt to facility this afternoon. No other CM needs at this time. TRUNG Umanzor Production Underwriter [phone] * RADHA Benavidez - 07/31/2022 5:38 AM EST Neurovascular Stroke Service Intracerebral Hemorrhage Note IDENTIFYING INFORMATION Love Skinner MR# [id number] 07/31/2022 HISTORY OF PRESENT ILLNESS Love Skinner is a 67 y.o. male with PMH significant for tobacco use disorder who presented to [facility] EDwith nausea, vomiting, and headache found to have interventricular hemorrhage. Symptoms started around 1200 on 07/13/2022 while he was working. He was taken to OSH where CTH demonstrated bilateral IVH L>R. He was transferred [facility] further work-up. He does not take any anticoagulants or antiplatelets. He arrived on cardene drip and SBP less than 140. NIH 3 on arrival for LUE weakness and confusion. INTERVAL HISTORY 07/14: DCA pending today to evaluate for suspected Mcdermott Mcdermott and IVH etiology 07/15: DCA completed, TTE and MRI brain pending 07/18: tx to NVS 07/19: ALIS overnight, TTE pending, IV fluids due to poor oral intake, Fever- urine culture pending, chest xray pending, blood cultures pending . 07/20: Lisinopril increased to 40 mg. Urine culture unremarkable, blood cx pending. Neuro exam stable. 07/21: Blood cultures no growth day 08/30. Neuro exam stable. IV hydration ordered. TTE pending. Coreg started. 07/22: Remove [place]ledo today, continue sitter, coreg increased 07/23: syncopal episode today, repeat CTH stable, replace K and Mag 07/24: Orthostatic change noted in BP with position, ordered GREG hose. 07/25: 1 liter of IV fluids, post void trial today-failed, discontinued Keflex 07/26: [place] replaced d/t failed void trail, urology consulted. ALIS overnight. Neuro exam & VS stable. Seroquel changed to PRN. 07/27: Agitation overnight requiring IM zyprexa plus additional dose of seroquel. Seroquel changed back to scheduled. Melatonin scheduled. 07/28: Decrease AM scheduled seroquel, OOB to chair 07/29: [place] catheter removed, sitter/restraints discontinued 07/30: chest discomfort overnight, ECG/trop/CXR unremarkable, GI cocktail ordered, suspect likely anxiety, resolved this AM 07/31: ALIS, VSS, SNF approved, family to provide transport today PHYSICAL EXAM Gen: awake, alert HEENT: normocephalic, no scalp lesions or tenderness, PERRL, EOMI Neck: trachea midline CV: +S1S2, RRR, no m/r/g Lungs: LCTA bilaterally with equal chest rise Abd: soft, nontender, nondistended, +BS x4 quadrants Extrem: Warm and well perfused, no cyanosis, clubbing, edema Neuro: Oriented to self and place, not situation or time, ARAGON x4, sensation intact and equal bilaterally CN II - All visual ponce intact CN II/III - PERRL CN III/IV/ - EOMI CN V - Light touch to face intact in all 3 divisions CN VII - Facial movement intact and symmetrical bilaterally CN VIII - Hearing intact CN X - Cough present CN XI - muscular movement of shoulders and sternocleidomastoid muscles intact and equal bilaterally CN XII - midline protrusion of tongue MOTOR EXAMINATION: no drift noted. NIHSS Provider NIH Stroke Scale NIH Interval (Provider): daily NIH Level of Conciousness (Provider): 0 NIH LOC Questions (Provider): 2 NIH LOC Commands (Provider): 0 NIH Best Gaze (Provider): 0 NIH Visual (Provider): 0 NIH Facial Palsy (Provider): 0 NIH Left Arm Motor (Provider): 0 NIH Right Arm Motor (Provider): 0 NIH Left Leg Motor (Provider): 0 NIH Right Leg Motor (Provider): 0 NIH Limb Ataxia (Provider): 0 NIH Sensory (Provider): 0 NIH Best Language (Provider): 1 NIH Dysarthria (Provider): 0 NIH Extinction and Inattention (Provider): 0 NIH Total Score (Provider): 3 Intracerebral Hemorrhage Volume Intracerebral Hemorrhage Score Score 30 Day Mortality following ICH 0 0% Mortality 1 13% Mortality 2 26% Mortality 3 72% Mortality 4 97% Mortality 5 100% Mortality ASSESSMENT AND PLAN Neuro: IVH c/b hydrocephalus, Advanced B/L MoyaMoya ICH score 1 CTH on arrival: IVH L > R, stable from outside hospital CTA: no spot sign. 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 -Antiplatelet therapy is not indicated. -Anticoagulation therapy not indicated in hemorrhagic stroke -Patients LDL 131 and HgbA1c p were checked and the patient will be discharged on atorvastatin 80 mg -Dysphagia screening ordered, and will be completed prior to patient receiving oral intake. -Stroke education booklet has been provided both written and verbal education to the patient and family regarding hemorrhagic strokes. We have reviewed the patient's personal modifiable risk factors as well as education on reducing these risk factors. -Patient is being assessed for Rehab by PT/OT/Speech and PM&R if indicated. Near syncpoal episode with orthostatic hypotension -on 07/23 while working with PT: ERT called. CTH without change. SBP dropped from 154 sitting to 89standing -GREG hose ordered -1 liter of IV fluids on 07/25 -Orthostatic precautions including gradual position changes Leukocytosis and Concern for UTI: resolved T Max 100.5 F on 07/19, CXR unremarkable, UA with small leukocytes and 10-20 WBC's, Urine culture no growth. Blood cultures from 07/19 with no growth -Keflex discontinued on 07/25 Headache: resolved, Given reglan IV and magnesium IV 07/19 -Acetaminophen PRN Hyponatremia, hypokalemia, hypomagnesemia, resolved: Likely 2/2 poor oral intake -Replace as needed -Encourage PO intake HLD: -statin as above HTN: Goal SBP < 140 -Lisinopril increased to 40 mg on 07/20 -Norvasc 10 mg, Coreg 12.5 mg BID BPH: Improving -Flomax 0.4mg daily -Urology was consulted due to presence of false tract and they placed toledo on 07/22 -DC [place] 07/29, passed void trial Agitation: Delirium: likely a combination of IVH/hydrocephalus, hospital acquired -Agitated requiring IM zyprexa x1 plus additional dose of seroquel in the evening on 07/26 -Scheduled seroquel changed to PRN on 07/26, switched back to scheduled q12h on 07/27, QTc stable 443 -Seroquel decreased in morning to 12.5 mg daily, 25 mg every evening -Melatonin 6 mg ordered early evening Tobacco use: POA -Nicotine patch -Encourage cessation Love Skinner will likely be discharged to SNF requested Dinesh Isidoro Blackwell, EL[employer] MUSICIAN 07/31/2022 9:03 AM VITAL SIGNS Temp: [97.6 F (36.4 C)-98.6 F (37 C)] 98.6 F (37 C) Pulse (Heart Rate): [72-93] 93 Resp Rate: [20-24] 20 BP: (121-133)/(63-65) 133/63 O2 Sat (%): [95 %-98 %] 95 % IMAGING/DIAGNOSTIC STUDIES XR CHEST PORTABLE Final Result IMPRESSION: No acute findings appreciated. HEAD WITHOUT CONTRAST (Results Pending) .wet MEDICATIONS amLODIPine 10 mg Oral Daily aspirin 81 mg Oral Daily Atorvastatin 80 mg Oral QHS carveDILOL 12.5 mg Oral BID enoxaparin 40 mg Subcutaneous Daily lidocaine 2 patch Transdermal Daily Lisinopril 40 mg Oral Daily Melatonin 6 mg Oral Daily early evening nicotine 1 patch Transdermal Q24H And VERIFY LINKED PATCH PLACEMENT Other Q12H QUEtiapine 12.5 mg Oral Daily QUEtiapine 25 mg Oral QHS senna 8.6 mg Oral Daily Or senna 8.6 mg Per NG tube Daily Tamsulosin HCl 0.4 mg Oral Daily * Topher Nevarez, PT - 07/30/2022 11:41 AM EST Acute Physical Therapy Treatment Prior to Admission [facility] score(s): PRIOR LEVEL AM-PAC Mobility Raw Score: 24 PRIOR LEVEL AM-PAC Activity Raw Score: 24 Current AM-PAC score(s): CURRENT AM-PAC Mobility Raw Score: 18 Based on the above AM-PAC score(s) and PT clinical judgment, patient is a good candidate for discharge to Inpatient Rehab Facility Supporting Factors (would benefit from skilled therapy services): Impaired balance, Fall risk, Impaired functional status Mobility equipment available at home: none used ADL equipment available at home: none Equipment needed for discharge: to be determined Current therapy frequency recommendation in acute: Therapy Frequency: 5 times a week Precautions and Weightbearing Status: Existing Precautions/Restrictions: fall Patient Safety Communication Prior to Visit: Nursing Subjective: Patient reports he is ready to get out of hospital Pain: General Pain Documentation (Adult, OB, Peds) Presence of Pain: denies pain/discomfort DVPRS (Defense and Veterans Pain Rating Scale) DVPRS: Rest: 0- no pain DVPRS: Activity: 0- no pain Objective/Observation: Vitals/Vitals Responses to Treatment: Tolerates session well Respiratory Status O2 Device: room air Cognition Overall Cognitive Status: Impaired Arousal/Alertness: Appropriate responses to stimuli Following Commands: Follows one step commands with increased time Safety Judgment: Decreased awareness of need for safety, Decreased awareness of need for assistance Awareness of Errors: Decreased awareness of errors Deficits: Decreased awareness of deficits Attention Span: Appears intact Extremity Assessments: See PT Evaluation flowsheet for Extremity Measurement updates. Balance: Sitting Balance Static Sitting-Level of Assistance: Supervision Dynamic Sitting-Level of Assistance: Supervision Standing Balance Static Standing-Level of Assistance: Contact guard Dynamic Standing-Level of Assistance: Contact guard Standing-Balance Support: 4 wheeled walker Skilled Rationale: Hand placement, Verbal cues, Technique of activity, Upright gaze/neck extension Transfer Assessment/Intervention: Sit to Stand Transfer [place] Level: Sit->Stand: contact guard assist Assistive Device: Sit->Stand: 2 wheeled walker Skilled Rationale: Positioning, Hand placement, Verbal cues, Sequencing, Technique of activity Skilled Intervention/Details: Sit->Stand: 3x5 in mass practice to work on LE strength needed forincreased activity and for carryover of transfer skills. Breaks needed in between for fatigue Gait/Functional Mobility Assessment/Intervention: Gait Assessment [place] Level: Gait: contact guard assist Assistive Device: Gait: 2 wheeled walker Ambulation Distance (Feet): (2x150) Gait Deviations Identified: decreased john, decreased gait speed, decreased heel strike, decreased step length, decreased stride length Gait Skilled Rationale: verbal, increase step length, upright posture Skilled Intervention/Details - Gait: VC for safety throughout for Ww positioning to promote uprightposture and limit propulsion. VC for gait speed, patient able to improve, but not maintain due to pain from corns Outcome Score(s): 25.2 sec Geriatrics Vestibular Disorders Parkinsons Disease > or = 12 seconds: further fall assessment needed1 > 15 seconds: fall risk3 > 16 seconds: fall risk4 > 15 seconds: recurrent falls2 Cesar Phillip., Rae HMinerva, et al. (2008). The comparative ability of eight functional mobility tests for predicting falls in community-dwelling older people. Age and Ageing 37(4): 430-435. 2BAxel gutierrez, Uma Daily, et al. (2010). A simple clinical scale to stratify risk of recurrent falls in community-dwelling adults aged 65 years and older. Physical Therapy 90(4): 550-560. 3BAxel gutierrez, Hilary Campos, et al. (2008). Five times sit to stand test is a predictor of recurrent falls in healthy community-living subjects aged 65 and older. Journal of the [place] GeriatricsSociety 56(8): 0517-7394. 4DMandie tripathi, Cora Belle, et al. (2011). Five times [id number] test performance in Parkinson's disease. Arch Phys Med Rehabil 92(9): 2256-3964. CURRENT [facility] Basic Mobility Inpatient Short Form Turning over in bed: 3 - A Little Assistance Sitting/standing from chair: 3 - A Little Assistance Moving from lying on back to sittin - A Little Assistance Moving to and from bed to chair: 3 - A Little Assistance Walk in hospital room: 3 - A Little Assistance Climbing 3-5 steps with a railin - A Little Assistance CURRENT [facility] Mobility Raw Score: 18 CURRENT [facility] Mobility Functional Limitation/Modifier: 46.58% Currently Impaired in Basic Mobility- CK Assessment & Plan: Patient progressing with improved standing balance this session. Patient able to ambulate CGA this session. Decreased safety insight and poor standing balance making patient high fall risk. Continue to work on standing balance to progress Patient Instruction/Education this session: STS mechanics Plan for next session: Progress with dynamic standing balance Acute PT Goals Plan of Care by Topher Nevarez PT at 07/30/2022 11:40 AM Version 1 of 1 Problem: PT - Balance/Coordination/Neuro Re-Education Goal: Sitting Dynamic/Static Balance Description: Pt will perform seated balance tasks for 15 minutes with independence UE support levelto improve safety with seated tasks. Outcome: Progressing Toward Goal Goal: Standing Dynamic/Static Balance Description: Pt will perform standing balance tasks for 15 minutes with independence with out an assistive device in order to improve functional mobility and safety with standing tasks. Outcome: Progressing Toward Goal Problem: PT - Mobility Goal: Ambulation Description: Pt will ambulate 200 feet with out an assistive device with independence to improve ability to navigate home environment. Outcome: Progressing Toward Goal Goal: Stairs Description: Pt will ascend/descend 12 stairs with out railings with independence with out an assistive device to improve ability to perform functional mobility necessary in recommended discharge environment. Outcome: Progressing Toward Goal Problem: PT - Transfers Goal: Sit <-> Stand Description: Pt will perform sit to/from stand transfers with independence with out an assistive device in order to improve functional mobility and safety. Outcome: Progressing Toward Goal PT treatment consisted of Therapeutic Activity and Gait/Stair Training to work and progress towardsabove goal(s). Treating Therapist: Topher Nevarez PT Additional Details: Co-evaluation/co-treatment performed?: No simultaneous skilled care performed I used facemask, protective eye shield, and gloves in today's patient interaction. Patient location at end of session: bed with head of bed elevated Alarms on at end of session: chair alarm Needs in reach. Time In: 1141 Time Out: 1204 Total Visit Time: 23 minutes Total Treatment Time (skilled, billable minutes): 23 minutes Upon discontinuation of Acute Care Physical Therapy Services or patient discharge from the hospitalthis note represents the current Physical Therapy Discharge Summary. * Dinesh Blackwell AUTO MECHANICS TEACHER-CHURCH MUSICIAN - 07/30/2022 5:35 AM EST Neurovascular Stroke Service Intracerebral Hemorrhage Note IDENTIFYING INFORMATION Love Skinner MR# [id number] 07/30/2022 HISTORY OF PRESENT ILLNESS Love Skinner is a 67 y.o. male with PMH significant for tobacco use disorder who presented to OSH EDwith nausea, vomiting, and headache found to have interventricular hemorrhage. Symptoms started around 1200 on 07/13/2022 while he was working. He was taken to OSH where CTH demonstrated bilateral IVH L>R. He was transferred to [facility] further work-up. He does not take any anticoagulants or antiplatelets. He arrived on cardene drip and SBP less than 140. NIH 3 on arrival for LUE weakness and confusion. INTERVAL HISTORY 07/14: DCA pending today to evaluate for suspected Mcdermott Mcdermott and IVH etiology 07/15: DCA completed, TTE and MRI brain pending 07/18: tx to NVS 07/19: ALIS overnight, TTE pending, IV fluids due to poor oral intake, Fever- urine culture pending, chest xray pending, blood cultures pending . 07/20: Lisinopril increased to 40 mg. Urine culture unremarkable, blood cx pending. Neuro exam stable. 07/21: Blood cultures no growth day 08/30. Neuro exam stable. IV hydration ordered. TTE pending. Coreg started. 07/22: Remove [place] today, continue sitter, coreg increased 07/23: syncopal episode today, repeat CTH stable, replace K and Mag 07/24: Orthostatic change noted in BP with position, ordered GREG hose. 07/25: 1 liter of IV fluids, post void trial today-failed, discontinued Keflex 07/26: [place] replaced d/t failed void trail, urology consulted. ALIS overnight. Neuro exam & VS stable. Seroquel changed to PRN. 07/27: Agitation overnight requiring IM zyprexa plus additional dose of seroquel. Seroquel changed back to scheduled. Melatonin scheduled. 07/28: Decrease AM scheduled seroquel, OOB to chair 07/29: [place] catheter removed, sitter/restraints discontinued 07/30: chest discomfort overnight, ECG/trop/CXR unremarkable, GI cocktail ordered, suspect likely anxiety, resolved this AM PHYSICAL EXAM Gen: awake, alert HEENT: normocephalic, no scalp lesions or tenderness, PERRL, EOMI Neck: trachea midline CV: +S1S2, RRR, no m/r/g Lungs: LCTA bilaterally with equal chest rise Abd: soft, nontender, nondistended, +BS x4 quadrants Extrem: Warm and well perfused, no cyanosis, clubbing, edema Neuro: Oriented to self and place, not situation or time, ARAGON x4, sensation intact and equal bilaterally CN II - All visual ponce intact CN II/III - PERRL CN III/IV/ - EOMI CN V - Light touch to face intact in all 3 divisions CN VII - Facial movement intact and symmetrical bilaterally CN VIII - Hearing intact CN X - Cough present CN XI - muscular movement of shoulders and sternocleidomastoid muscles intact and equal bilaterally CN XII - midline protrusion of tongue MOTOR EXAMINATION: no drift noted. NIHSS Provider NIH Stroke Scale NIH Interval (Provider): daily NIH Level of Conciousness (Provider): 0 NIH LOC Questions (Provider): 2 NIH LOC Commands (Provider): 0 NIH Best Gaze (Provider): 0 NIH Visual (Provider): 0 NIH Facial Palsy (Provider): 0 NIH Left Arm Motor (Provider): 0 NIH Right Arm Motor (Provider): 0 NIH Left Leg Motor (Provider): 0 NIH Right Leg Motor (Provider): 0 NIH Limb Ataxia (Provider): 0 NIH Sensory (Provider): 0 NIH Best Language (Provider): 1 NIH Dysarthria (Provider): 0 NIH Extinction and Inattention (Provider): 0 NIH Total Score (Provider): 3 Intracerebral Hemorrhage Volume Intracerebral Hemorrhage Score Score 30 Day Mortality following ICH 0 0% Mortality 1 13% Mortality 2 26% Mortality 3 72% Mortality 4 97% Mortality 5 100% Mortality ASSESSMENT AND PLAN Neuro: IVH c/b hydrocephalus, Advanced B/L MoyaMoya ICH score 1 CTH on arrival: IVH L > R, stable from outside hospital CTA: no spot sign. 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 -Antiplatelet therapy is not indicated. -Anticoagulation therapy not indicated in hemorrhagic stroke -Patients LDL 131 and HgbA1c p were checked and the patient will be discharged on atorvastatin 80 mg -Dysphagia screening ordered, and will be completed prior to patient receiving oral intake. -Stroke education booklet has been provided both written and verbal education to the patient and family regarding hemorrhagic strokes. We have reviewed the patient's personal modifiable risk factors as well as education on reducing these risk factors. -Patient is being assessed for Rehab by PT/OT/Speech and PM&R if indicated. Near syncpoal episode with orthostatic hypotension -on 07/23 while working with PT: ERT called. CTH without change. SBP dropped from 154 sitting to 89standing -GREG hose ordered -1 liter of IV fluids on 07/25 -Orthostatic precautions including gradual position changes Leukocytosis and Concern for UTI: resolved T Max 100.5 F on 07/19, CXR unremarkable, UA with small leukocytes and 10-20 WBC's, Urine culture no growth. Blood cultures from 07/19 with no growth -Keflex discontinued on 07/25 Headache: resolved, Given reglan IV and magnesium IV 07/19 -Acetaminophen PRN Hyponatremia, hypokalemia, hypomagnesiumia: Likely 2/2 poor oral intake -Replace as needed -Encourage PO intake HLD: -statin as above HTN: Goal SBP < 140 -Lisinopril increased to 40 mg on 07/20 -Norvasc 10 mg, Coreg 12.5 mg BID BPH: Improving -Flomax 0.4mg daily -Urology was consulted due to presence of false tract and they placed [place]o on 07/22 -DC [place] 07/29, passed void trial Agitation: Delirium: likely a combination of IVH/hydrocephalus, hospital acquired -Agitated requiring IM zyprexa x1 plus additional dose of seroquel in the evening on 07/26 -Scheduled seroquel changed to PRN on 07/26, switched back to scheduled q12h on 07/27, QTc stable 443 -Seroquel decreased in morning to 12.5 mg daily, 25 mg every evening -Melatonin 6 mg ordered early evening Tobacco use: POA -Nicotine patch -Encourage cessation Love Skinner will likely be discharged to [facility] requested, pending acceptance. Dinesh Blackwell, ELYSIA-CHURCH MUSICIAN 07/30/2022 9:52 AM VITAL SIGNS Temp: [97.9 F (36.6 C)-98 F (36.7 C)] 98 F (36.7 C) Pulse (Heart Rate): [66-74] 69 Resp Rate: [14-19] 19 BP: (114-139)/(56-74) 119/74 O2 Sat (%): [95 %-100 %] 95 % IMAGING/DIAGNOSTIC STUDIES XR CHEST PORTABLE Final Result IMPRESSION: No acute findings appreciated. HEAD WITHOUT CONTRAST (Results Pending) .wet MEDICATIONS amLODIPine 10 mg Oral Daily aspirin 81 mg Oral Daily Atorvastatin 80 mg Oral QHS carveDILOL 12.5 mg Oral BID enoxaparin 40 mg Subcutaneous Daily lidocaine 2 patch Transdermal Daily Lisinopril 40 mg Oral Daily Melatonin 6 mg Oral Daily early evening nicotine 1 patch Transdermal Q24H And VERIFY LINKED PATCH PLACEMENT Other Q12H QUEtiapine 12.5 mg Oral Daily QUEtiapine 25 mg Oral QHS senna 8.6 mg Oral Daily Or senna 8.6 mg Per NG tube Daily Tamsulosin HCl 0.4 mg Oral Daily Associated attestation - Love Caceres MD - 07/30/2022 4:51 PM EST Attending Physician Note (GC) I interviewed and examined this patient with the MARKETING SALES SUPERVISOR. I reviewed the history and exam detailed in the note. I agree with the medical decision making with the following comment(s): IVH, likely hypertensive. Clinically stable with improved encephalopathy and agitation, ready for discharge to SNF. . * Tejas Menon OT - 07/29/2022 2:18 PM EST Acute Occupational Therapy Treatment Prior to Admission AM-PAC Score: PRIOR LEVEL AM-PAC Activity Raw Score: 24 PRIOR LEVEL AM-PAC Mobility Raw Score: 24 Current AM-PAC score(s): CURRENT AM-PAC Activity Raw Score: 18 Based on the above AM-PAC score(s), and OT clinical judgment, discharge destination recommendation is: Inpatient Rehab Facility Supporting Factors (would benefit from skilled therapy services): Patient status is anticipated to be appropriate to tolerate inpatient rehab therapy requirements at time of discharge from acute care, Decreased strength, Impaired functional status, Impaired self-care abilities, Decreased endurance,Impaired balance, Fall risk, Impaired cognitive status Mobility equipment available at home: none used ADL equipment available at home: none Equipment recommendations for discharge: to be determined Current therapy frequency recommendation(s) in acute: 5 times a week Precautions and Weightbearing Status: OT Existing Precautions/Restrictions: fall Patient Safety Communication Prior to Visit: Nursing Subjective: Pt agreeable to OT session. Pain: General Pain Documentation (Adult, OB, Peds) Presence of Pain: denies pain/discomfort Objective/Observation: Vitals/Vitals Responses to Treatment: WFL Respiratory Status O2 Device: room air Vision Screen Currently wearing corrective lenses: No Speech Speech: no gross deficits noted Hearing Hearing: no gross deficits noted Cognition Overall Cognitive Status: Impaired Arousal/Alertness: Delayed responses to stimuli Orientation Level: Oriented to person Following Commands: Follows one step commands with increased time Safety Judgment: Decreased awareness of need for assistance Awareness of Errors: Assistance required to identify errors made Deficits: Fully aware of deficits Grooming Assistance: Set up supervision Grooming Location: seated in chair Grooming Deficit: Increased time to complete, Bringing items to mouth/face, Wash/dry face Grooming Skilled Rationale (Verbal/Tactile/Visual/Demonstration): Facilitate positioning, Techniqueof activity Grooming Intervention/Details: Pt washing/drying face while sitting in recliner. Increased time needed and difficulty noted with holding towel to face and rubbing with bilateral hands. Pt dropping towel throughout activity Extremity Assessments: See OT Evaluation flowsheet for Extremity Measurement updates. Balance: Standing Balance Static Standing-Level of Assistance: Contact guard Dynamic Standing-Level of Assistance: Minimum assistance Standing-Balance Support: Gait belt, 2 wheeled walker Skilled Rationale: Positioning, Hand placement, Verbal cues, Technique of activity Standing Balance Skilled Intervention/Details: Pt completing x2 standsfor under 30 seconds on each.Difficulty with standing for increased time due BLE weakness and posterior lean Skin and Edema: Skin Integrity Skin Integrity Description: WFL Edema Edema: not tested Transfer Assessment/Intervention: Sit to Stand Transfer [place] Level: Sit->Stand: minimum assist (75% patient effort) Assistive Device: Sit->Stand: gait belt, 2 wheeled walker Skilled Rationale: Positioning, Hand placement, Verbal cues, Technique of activity Skilled Intervention/Details: Sit->Stand: Pt completed x2 sit to stand from recliner. Pt requring Min A to come to full stand and Mod vcs for hand placement Stand to Sit Transfer [place] Level: Stand->Sit: minimum assist (75% patient effort) Assistive Device: Stand->Sit: gait belt, 2 wheeled walker Skilled Rationale: Positioning, Verbal cues, Technique of activity Skilled Intervention/Details: Stand->Sit: Pt requiring Mod vcs to reach back and release FWW. Ptwith bilateral wood molder in FWW through stand to sit transfer [facility] Daily Activity Inpatient Short Form Putting on/Taking Off Lower Body Clothin - A Little Assistance Bathin - A Lot of Assistance Toiletin - A Little Assistance ([place] removed) Putting on/Taking Off Upper Body Clothin - A Little Assistance Groomin - A Little Assistance Eatin - No Assistance [facility] Activity Raw Score: 18 [facility] Activity Functional Limitation/Modifier: 46.65% Currently Impaired in Daily Activity- CK Assessment & Plan: Good progression made toward goals. At this time pts biggest barrier to completing ADLs safely and with highest level of function is impaired cognition, motor impairments, and generalized weakness. Pt would benefit from continued skilled OT to increase independence with ADLs and functional mobility. Patient Instruction/Education this session: Patient Instruction: OT role and POC Plan for next session: [place] balance, sink self care tasks Acute OT Goals Plan of Care by Tejas Menon OT at 07/29/2022 2:54 PM Version 1 of 1 Problem: OT - Dressing Goal: Upper Body Dressing Description: Pt will complete UE dressing task seated in chair with minimal assistance for improvedability to complete self-care activities. Outcome: Ongoing Problem: OT - ADLs Goal: Grooming Description: Pt will complete grooming in standing with contact guard assistance for improved ability to safely complete ADLs. Outcome: Ongoing Goal: Feeding Description: Pt will perform self-feeding task while seated with modified independence to promote success and safety during daily routine. Outcome: Ongoing Problem: OT - Balance Goal: Balance - Standing Description: Pt will perform 5 minutes of functional ADL task in standing with minimal assistance and balance level of minimum assist to promote safety and improved balance required for self-care activities. Outcome: Ongoing OT treatment consisted of ADL retraining, IADL retraining, balance training, cognitive training, neuromuscular re-education, strengthening and transfer training to work and progress towards above goal(s). Treating Therapist: Tejas Menon OT Additional Details: Co-evaluation/co-treatment performed?: No simultaneous skilled care performed I used facemask, protective eye shield, and gloves in today's patient interaction. Patient location at end of session: chair Alarms on at end of session: chair alarm Needs in reach. Time In: 1416 Time Out: 1442 Total Visit Time: 26 minutes Total Treatment Time (skilled, billable minutes): 26 minutes Upon discontinuation of Acute Care Occupational Therapy Services or patient discharge from the hospital this note represents the current Occupational Therapy Discharge Summary. * BETH Gonzalez - 07/29/2022 12:02 PM EST Progression of Care Note Expected Discharge Date: 07/30/2022 Medical Milestones Remaining: Pt must be restraint free for 24 hours before discharge. restraints have now been discontinued. Patient Choice for Post-Acute Providers Resumption of care?: No Establishing care?: Yes Level of care for choice: SNF Preferred geographic region: Discussed and honored Source of list: Medicare.gov List was provided to: Spouse Contact: Rajiv Brody Method of delivery: Phone Call Review Anticipated discharge disposition: Senior Care Facility Anticipated Services at Discharge: Physical Therapy, Occupational Therapy, Outpatient follow up, Senior Care, Speech Therapy Barriers to Discharge: Uninsured/Underinsured, Facility/Agency Issue Explanation of Barriers: Awaiting 's SNF choice to review referral. TRUNG [employer] Underwriter [phone] Readmission Risk Score Risk of Readmission: 7 Category Reference: High:16-100 Mod-High:10-16 Mod-Low: 5-10 Low: 0-5 * Annie Hutchins APRN-ZACK - 07/29/2022 9:24 AM EST Neurovascular Stroke Service Intracerebral Hemorrhage Note IDENTIFYING INFORMATION Love Skinner MR# [id number] 07/29/2022 HISTORY OF PRESENT ILLNESS Love Skinner is a 67 y.o. male with PMH significant for tobacco use disorder who presented to OSH EDwith nausea, vomiting, and headache found to have interventricular hemorrhage. Symptoms started around 1200 on 07/13/2022 while he was working. He was taken to OSH where CTH demonstrated bilateral IVH L>R. [facility]up. He does not take any anticoagulants or antiplatelets. He arrived on cardene drip and SBP less than 140. NIH 3 on arrival for LUE weakness and confusion. INTERVAL HISTORY 07/14: DCA pending today to evaluate for suspected Mcdermott Mcdermott and IVH etiology 07/15: DCA completed, TTE and MRI brain pending 07/18: tx to NVS 07/19: ALIS overnight, TTE pending, IV fluids due to poor oral intake, Fever- urine culture pending, chest xray pending, blood cultures pending . 07/20: Lisinopril increased to 40 mg. Urine culture unremarkable, blood cx pending. Neuro exam stable. 07/21: Blood cultures no growth day 08/30. Neuro exam stable. IV hydration ordered. TTE pending. Coreg started. 07/22: Remove [place] today, continue sitter, coreg increased 07/23: syncopal episode today, repeat CTH stable, replace K and Mag 07/24: Orthostatic change noted in BP with position, ordered GREG hose. 07/25: 1 liter of IV fluids, post void trial today-failed, discontinued Keflex 07/26: [place] replaced d/t failed void trail, urology consulted. ALIS overnight. Neuro exam & VS stable. Seroquel changed to PRN. 07/27: Agitation overnight requiring IM zyprexa plus additional dose of seroquel. Seroquel changed back to scheduled. Melatonin scheduled. 07/28: Decrease AM scheduled seroquel, OOB to chair 07/29: [place] catheter removed, sitter/restraints discontinued PHYSICAL EXAM Gen: awake, alert HEENT: normocephalic, no scalp lesions or tenderness, PERRL, EOMI Neck: trachea midline CV: +S1S2, RRR, no m/r/g Lungs: LCTA bilaterally with equal chest rise Abd: soft, nontender, nondistended, +BS x4 quadrants Extrem: Warm and well perfused, no cyanosis, clubbing, edema Neuro: Oriented to self and place, not situation or time, ARAGON x4, sensation intact and equal bilaterally CN II - All visual ponce intact CN II/III - PERRL CN III/IV/ - EOMI CN V - Light touch to face intact in all 3 divisions CN VII - Facial movement intact and symmetrical bilaterally CN VIII - Hearing intact CN X - Cough present CN XI - muscular movement of shoulders and sternocleidomastoid muscles intact and equal bilaterally CN XII - midline protrusion of tongue MOTOR EXAMINATION: no drift noted. NIHSS Provider NIH Stroke Scale NIH Interval (Provider): daily NIH Level of Conciousness (Provider): 0 NIH LOC Questions (Provider): 2 NIH LOC Commands (Provider): 0 NIH Best Gaze (Provider): 0 NIH Visual (Provider): 0 NIH Facial Palsy (Provider): 0 NIH Left Arm Motor (Provider): 0 NIH Right Arm Motor (Provider): 0 NIH Left Leg Motor (Provider): 0 NIH Right Leg Motor (Provider): 0 NIH Limb Ataxia (Provider): 0 NIH Sensory (Provider): 0 NIH Best Language (Provider): 0 NIH Dysarthria (Provider): 0 NIH Extinction and Inattention (Provider): 0 NIH Total Score (Provider): 2 Intracerebral Hemorrhage Volume Intracerebral Hemorrhage Score Score 30 Day Mortality following ICH 0 0% Mortality 1 13% Mortality 2 26% Mortality 3 72% Mortality 4 97% Mortality 5 100% Mortality ASSESSMENT AND PLAN Neuro: IVH c/b hydrocephalus, Advanced B/L MoyaMoya ICH score 1 CTH on arrival: IVH L > R, stable from outside hospital CTA: no spot sign. 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 -Antiplatelet therapy is not indicated. -Anticoagulation therapy not indicated in hemorrhagic stroke -Patients LDL 131 and HgbA1c p were checked and the patient will be discharged on atorvastatin 80 mg -Dysphagia screening ordered, and will be completed prior to patient receiving oral intake. -Stroke education booklet has been provided both written and verbal education to the patient and family regarding hemorrhagic strokes. We have reviewed the patient's personal modifiable risk factors as well as education on reducing these risk factors. -Patient is being assessed for Rehab by PT/OT/Speech and PM&R if indicated. Near syncpoal episode with orthostatic hypotension -on 07/23 while working with PT: ERT called. CTH without change. SBP dropped from 154 sitting to 89standing -GREG hose ordered -1 liter of IV fluids on 07/25 -Orthostatic precautions including gradual position changes Leukocytosis and Concern for UTI: resolved T Max 100.5 F on 07/19, CXR unremarkable, UA with small leukocytes and 10-20 WBC's, Urine culture no growth. Blood cultures from 07/19 with no growth -Keflex discontinued on 07/25 Headache: resolved, Given reglan IV and magnesium IV 07/19 -Acetaminophen PRN Hyponatremia, hypokalemia, hypomagnesiumia: Likely 2/2 poor oral intake -Replace as needed -Encourage PO intake HLD: -statin as above HTN: Goal SBP < 140 -Lisinopril increased to 40 mg on 07/20 -Norvasc 10 mg, Coreg 12.5 mg BID BPH: Improving -Flomax 0.4mg daily -Urology was consulted due to presence of false tract and they placed [place] on 07/22 -Failed post void trial. Nursing staff able to place 18F coude catheter placement -Can trial of void prior to discharge: Trial of void: Obtain PVR x 2. Successful void trial is typically voided volume greater than PVR for for two separate voids, PVR < 150cc, or decreasing serial PVRs. If voided amount is less than PVR, repeat a third time to ensure not increasing. If patient does not pass void trial closer to discharge, please replace catheter and page Urology resident bone drier so we can assist with making outpatient appointment. -DC [place] today 07/29, passed void trial Agitation: Delirium: likely a combination of IVH/hydrocephalus, hospital acquired -Agitated requiring IM zyprexa x1 plus additional dose of seroquel in the evening on 07/26 -Scheduled seroquel changed to PRN on 07/26, switched back to scheduled q12h on 07/27, QTc stable 443 -Seroquel decreased in morning to 12.5 mg daily, 25 mg every evening -Melatonin 6 mg ordered early evening Tobacco use: POA -Nicotine patch -Encourage cessation Love Skinner will likely be discharged to SNF requested, pending acceptance. Annie Keith Hutchins, AUTO MECHANICS TEACHER-CHURCH MUSICIAN 07/29/2022 9:24 AM VITAL SIGNS Temp: [98.3 F (36.8 C)] 98.3 F (36.8 C) Pulse (Heart Rate): [70-91] 91 Resp Rate: [15-18] 18 BP: (124-129)/(60-64) 129/64 O2 Sat (%): [94 %] 94 % IMAGING/DIAGNOSTIC STUDIES CT HEAD WITHOUT CONTRAST (Results Pending) .wet MEDICATIONS amLODIPine 10 mg Oral Daily aspirin 81 mg Oral Daily Atorvastatin 80 mg Oral QHS carveDILOL 12.5 mg Oral BID enoxaparin 40 mg Subcutaneous Daily lidocaine 2 patch Transdermal Daily Lisinopril 40 mg Oral Daily Melatonin 6 mg Oral Daily early evening nicotine 1 patch Transdermal Q24H And VERIFY LINKED PATCH PLACEMENT Other Q12H QUEtiapine 12.5 mg Oral Daily QUEtiapine 25 mg Oral QHS senna 8.6 mg Oral Daily Or senna 8.6 mg Per NG tube Daily Tamsulosin HCl 0.4 mg Oral Daily Associated attestation - Love Caceres MD - 07/30/2022 4:51 PM EST Attending Physician Note (GC) I interviewed and examined this patient with the MARKETING SALES SUPERVISOR. I reviewed the history and exam detailed in the note. I agree with the medical decision making with the following comment(s): IVH, likely hypertensive. Clinically stable with improved encephalopathy and agitation, ready for discharge to SNF. * Lilli Dan, PT - 07/28/2022 1:05 PM EST Acute Physical Therapy Treatment PRIOR LEVEL AM-PAC Mobility Raw Score: 24 CURRENT AM-PAC Mobility Raw Score: 14 Based on the above AM-PAC score(s) and PT clinical judgment, patient is a good candidate for discharge to Inpatient Rehab Facility Supporting Factors (would benefit from skilled therapy services): Impaired balance, Fall risk, Impaired functional status Mobility equipment available at home: none used ADL equipment available at home: none Equipment needed for discharge: to be determined Current therapy frequency recommendation in acute: Therapy Frequency: 5 times a week Precautions and Weightbearing Status: Existing Precautions/Restrictions: fall (sitter present) Patient Safety Communication Prior to Visit: Nursing Respiratory Status O2 Device: room air SUBJECTIVE: Pt in chair, agreeable to session. Says it feels good to be up. 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 Pain: General Pain Documentation (Adult, OB, Peds) Presence of Pain: denies pain/discomfort OBJECTIVE: Vitals/Response to Treatment: VSS Cognition Overall Cognitive Status: Impaired Orientation Level: Oriented to person (incorrect month with cues, correct day by looking at whiteboard) Cognition Comments: Confusion & processing delays, frequency redirection, tangential during conversation. Balance: Sitting Balance Static Sitting-Level of Assistance: Supervision Dynamic Sitting-Level of Assistance: Standby Standing Balance Static Standing-Level of Assistance: Minimum assistance Dynamic Standing-Level of Assistance: Moderate assistance, Minimum assistance Standing-Balance Support: Gait belt, 2 wheeled walker Skilled Rationale: Verbal cues, Tactile cues, Full extension to upright positioning/posture, Finding/maintaining midline positioning Standing Balance Skilled Intervention/Details: Pt initially retropulsion in standing with improvement noted as activity progressed and with cues. Repeated cues through entirety of session for uprightposture and walker positioning. Transfers: Sit to Stand Transfer [place] Level: Sit->Stand: minimum assist (75% patient effort) Assistive Device: Sit->Stand: gait belt Skilled Rationale: Verbal cues, Tactile cues, Sequencing, Hand placement, Facilitate anterior shift, Full extension to upright positioning/posture, Upright gaze/neck extension, Initiation and execution of task Skilled Intervention/Details: Sit->Stand: 2 x5reps with extensive cueing and fair carryover. Overal improved quality on 2nd set, progressing from 1 hand on walker 1 hand on chair, to pushing up with both hands from the chair then walker. Stand to Sit Transfer [place] Level: Stand->Sit: minimum assist (75% patient effort) Assistive Device: Stand->Sit: gait belt Skilled Rationale: Verbal cues, Tactile cues, Sequencing, Hand placement, Facilitate anterior shift, Controlled descent for sitting Skilled Intervention/Details: Stand->Sit: reps as above, repeated cues for control with improvement noted tactile facilitation and hand over hand to reach for armrest Gait/Functional Mobility: Gait Assessment [place] Level: Gait: minimum assist (75% patient effort) Assistive Device: Gait: gait belt, 2 wheeled walker Ambulation Distance (Feet): (2x50') Gait Deviations Identified: decreased john, decreased gait speed, decreased step length, flexed posture Gait Skilled Rationale: verbal, tactile, upright posture, hand placement on assistive device, proximity of assistive device, reduce lateral weight shift Skilled Intervention/Details - Gait: Improved fluidity 2nd trial but significant distraction with both trials for walk required cues for attention. ASSESSMENT & PLAN: Pt with some improvement in overall function, good tolerance for activity. Remains confused, limiting progression. Would continue to benefit from skilled PT to progress towards PLOF. Plan for next session: standing balance, transfers, gait PT treatment consisted of Therapeutic Activity and Gait/Stair Training to work and progress towardsgoal(s). Treating Therapist: Lilli Dan PT,DPT,NCS Additional Details: Co-evaluation/co-treatment performed?: No simultaneous skilled care performed I used gloves and facemask in today's patient interaction. Patient location at end of session: chair, sitter present Needs in reach. Time In: 1240 Time Out: 1305 Total Visit Time: 25 minutes Total Treatment Time (skilled, billable minutes): 25 minutes Upon discontinuation of Acute Care Physical Therapy Services or patient discharge from the hospitalthis note represents the current Physical Therapy Discharge Summary. Acute PT Goals Plan of Care by Lilli Dan PT at 07/28/2022 1:05 PM Version 1 of 1 Problem: PT - Balance/Coordination/Neuro Re-Education Goal: Standing Dynamic/Static Balance Description: Pt will perform standing balance tasks for 15 minutes with independence with out an assistive device in order to improve functional mobility and safety with standing tasks. Outcome: Progressing Toward Goal Problem: PT - Mobility Goal: Ambulation Description: Pt will ambulate 200 feet with out an assistive device with independence to improve ability to navigate home environment. Outcome: Progressing Toward Goal Problem: PT - Transfers Goal: Sit <-> Stand Description: Pt will perform sit to/from stand transfers with independence with out an assistive device in order to improve functional mobility and safety. Outcome: Progressing Toward Goal * Lilli Dan, PT - 07/28/2022 11:02 AM EST Physical Therapy Attempt Note 07/28/2022 PT Therapy Completed: Attempted Attempted Reason: Other (see comments) (pt too lethargic/sleepy to actively particpate, agreeable to reattempt later) Lilli Dan, GARY Time In: 1052 Time Out: 1101 Total Visit Time: 9 minutes Total Treatment Time (skilled, billable minutes): 4 minutes * BETH Novak - 07/28/2022 10:44 AM ESTSummary: Discharge Plan Placement Plan Expected Discharge Date: 07/29/2022 Referred Level of Care: SNF Patient Choice for Post-Acute Providers Barriers: private pay, bed available and transportation Current Referrals and Status 1. [facility] Please see [place] Note-07/28/22. BRIDGET Novak, [facility] International Sales Representative [phone] * BETH Novak - 07/28/2022 10:27 AM ESTSummary: Discharge Plan [place] spoke with patient's spouse, Rajiv Skinner and she confirmed she would like a SNF referral sent to [facility] in [place] for their review. Spouse has spoken with [facility] and they are aware that a referral will be sent and spouse will have to pay for first 30 days up front. Spouse reported she has reached out to Medicare to start process for health coverage but does not know when or how long it will take. J[place]SEY informed spouse that she will keep her updated on discharge date and plan. BRIDGET Novak RECYCLING SPECIALIST International Sales Representative [phone] * BETH Gonzalez - 07/28/2022 9:55 AM EST Focused Assessment for Discharge Planning Patient is here for stroke-work up. Initial Discharge Planning Anticipated discharge disposition: Senior Care Facility Transportation Available for Discharge: Ambulance Anticipated DME: none Anticipated Services at Discharge: Physical Therapy, Occupational Therapy, Outpatient follow up, Senior Care, Speech Therapy Patient Assessment Completed: Focused Advanced Care Planning Assessment Advanced Care Planning Has the patient completed Advance Directives?: Not Completed Referral to Social Work for Advance Care Planning? : (Pt has AMS) HCPOA Agent(s): N/A Legal Next of Kin: Quentin Skinner-wife-[phone] Financial Resources Insurance: No Prescription Coverage: No Resources Needed: No Resources Provided: Living Environment and Support System Pt lives at home with his . Patient Resources Prior to Admission Post-acute Services: no Community Resources: no DME: no CM spoke to Pt's over the telephone to complete initial assessment as Pt has AMS. CM explainedthe levels of care. Pt's understands that recommendations are for IPR, but she wants Pt to to discharge to a SNF closer to home. The facility name is [facility], and Pt's has spoken to the facility regarding paying privately. CM informed SW. TRUNG Umanzor Production Underwriter [phone] * Candelaria Almodovar, MICROBIOLOGICAL LAB TECHNICIAN - 07/28/2022 9:52 AM EST Acute Care Speech Language Pathology Treatment Best mode of Communication: verbal Communication Strategies: provide education in writing and/or to family as pt's impaired attention/memory are barriers to his carry over of new information/learning at this time Discharge Recommendations: Based on the below outcome measures/assessment score(s) and MICROBIOLOGICAL LAB TECHNICIAN clinicaljudgment, discharge destination recommendation is: IRF. Patient would require 24/7 assist if he were to discharge home given impulsivity and lack of insight into his deficits Barriers to discharge home: Cognitive impairments that impact safety and independence Supporting factors for discharge setting: Impaired cognitive skills limiting safety/insight, Impaired cognitive skills limiting functional problem solving in immediate environment, Impaired cognitiveskills limiting independence Acute MICROBIOLOGICAL LAB TECHNICIAN Outcomes Tracking Communicate basic wants and needs?: yes Demo insight/appreciation of deficits?: no Complete basic problem solving?: no Current therapy frequency recommendation in acute: Speech/Lang/Cog Therapy Frequency: 3 times a week Clinical Impression: Ongoing moderate cognitive-comunicative impairments in the setting of acute IVH. Able to express his wants/needs. Impaired attention with perseveration, tangents and impulsivity. He identified lability/tearfulness as a frustration. Impaired immediate and short term recall. Oriented to self and 2022, though required leading or multiple choice cues for all other orientation topics this date. No recall of education from primary team or tasks/education completed with PT/OT. Of note, he described prior head trauma following a fall with head strike. He denied any medical workup for this fall or therapy services. Endorsed fogginess and impaired short term memory for a few months post fall. Subjective: alert, cooperative, upright in chair with sitter present. Insightful into head bleed Pain: Nonverbal indicator not present Lines/Drains/Tubes: Lines/Tubes/Drains (Rehab Status): Telemetry Respiratory Status: Room air Acute MICROBIOLOGICAL LAB TECHNICIAN Goals Plan of Care by Candelaria Almodovar, MICROBIOLOGICAL LAB TECHNICIAN at 07/28/2022 9:51 AM Version 1 of 1 Problem: MICROBIOLOGICAL LAB TECHNICIAN - Cognition Goal: Memory Goal 1 Description: Patient will utilize compensatory memory strategies to teach back at least 3 facts related to their hospitalization/POC across a 5 minute delay across at least 2 consecutive sessions to support generalization of strategy use and pt's self-advocacy, min cues by discharge. Despite visible handouts and walker in room, patient did not identify resources provided by PT/OT, recommendations for assistance with walker for mobility or therapy goals. Probed his baseline use ofstrategies and he shrugged. Perseverative on the of his grandson and minimally redirectable to target memory strategies therefore, transitioned to concrete/present problem solving tasks. Outcome: Ongoing Goal: Problem Solving Goal 1 Description: Patient will complete basic problem solving tasks in at least 3/5 of opportunities in their immediate environment to support self-advocacy and independence, given min cues across 2 consecutive sessions by discharge. Addressed via use of call light, manipulating tray table, use of chair controls, obtaining assistance from sitter and contacting family. Patient with min - max verbal cues across tasks and unable to fade immediately after each trial. Perseverative errors using call light to change tv channel, though no awareness of his prior error. This pattern was consistent across tasks. Suspect attention was his barrier as he initially attempted to complete task then appeared immediately distracted. Outcome: Ongoing Goal: Meticognition Goal 1 Description: Patient will identify at least 3 deficits related to medical condition and how deficits will impact ability to return home with min cues across 2-3 sessions to improve insight and safety. He identified lability/tearfulness and was perseverative on this topic this session. He denied any difficulty with ambulation, balance, self-care. Inconsistent reports of memory as he denied changes,though also stated he does not recall hospital events/discharge plan. Outcome: Ongoing Goal: Orientation Goal Description: Patient will recall/implement use of orientation strategies, given min -no cues, to demonstrate improved awareness and insight as measured by achieving a 27/30 on The Orientation Log, across 1-2 sessions. The Orientation Log (O-Log) is designed to be a quick quantitative measure of orientational status for use at bedside with rehabilitation inpatients. Place, time, and situational (Etiology/Event + Pathology/Deficits) domains are assessed. Patient responses are scored according to the following criteria: 3 = correct spontaneously or upon first free recall attempt; 2 = correct upon logical cueing (e.g., That was yesterday, so today must be ); 1 = correct upon multiple choice or phonemic cuing; and 0 = incorrect despite cueing, inappropriate response, or unable to respond. Patient scored TotalScore: this date. Outcome: Ongoing Patient Instruction/Education this session: role of MICROBIOLOGICAL LAB TECHNICIAN, recs for rehab following discharge Plan for next session: continue PoC, family education as able I used facemask and protective eye shield in today's patient interaction. Speech Language Pathologist: MIGUEL A Krueger Time In: 909 Time Out: 934 Total Visit Time: 25 minutes Total Treatment Time (skilled, billable minutes): 25 minutes Patient location at end of session: chair Alarms on at end of session: chair alarm and sitter present Needs in reach. Upon discontinuation of Acute Care Speech Therapy Services or patient discharge from the hospital this note represents the current Speech Therapy Discharge Summary Schuler APRN-CHURCH MUSICIAN - 07/28/2022 7:28 AM EST Neurovascular Stroke Service Intracerebral Hemorrhage Note IDENTIFYING INFORMATION Love Skinner MR# [id number] 07/28/2022 HISTORY OF PRESENT ILLNESS Love Skinner is a 67 y.o. male with PMH significant for tobacco use disorder who presented to OSH EDwith nausea, vomiting, and headache found to have interventricular hemorrhage. Symptoms started around 1200 on 07/13/2022 while he was working. He was taken to OSH where CTH demonstrated bilateral IVH L>R. [facility] was [facility] work-up. He does not take any anticoagulants or antiplatelets. He arrived on cardene drip and SBP less than 140. NIH 3 on arrival for LUE weakness and confusion. INTERVAL HISTORY 07/14: DCA pending today to evaluate for suspected Mcdermott Mcdermott and IVH etiology 07/15: DCA completed, TTE and MRI brain pending 07/18: tx to NVS 07/19: ALIS overnight, TTE pending, IV fluids due to poor oral intake, Fever- urine culture pending, chest xray pending, blood cultures pending . 07/20: Lisinopril increased to 40 mg. Urine culture unremarkable, blood cx pending. Neuro exam stable. 07/21: Blood cultures no growth day 08/30. Neuro exam stable. IV hydration ordered. TTE pending. Coreg started. 07/22: Remove [place]o today, continue sitter, coreg increased 07/23: syncopal episode today, repeat CTH stable, replace K and Mag 07/24: Orthostatic change noted in BP with position, ordered GREG hose. 07/25: 1 liter of IV fluids, post void trial today-failed, discontinued Keflex 07/26: [place] replaced d/t failed void trail, urology consulted. ALIS overnight. Neuro exam & VS stable. Seroquel changed to PRN. 07/27: Agitation overnight requiring IM zyprexa plus additional dose of seroquel. Seroquel changed back to scheduled. Melatonin scheduled. 07/28: Decrease AM scheduled seroquel, OOB to chair, PHYSICAL EXAM Gen: awake, alert HEENT: normocephalic, no scalp lesions or tenderness, PERRL, EOMI Neck: trachea midline CV: +S1S2, RRR, no m/r/g Lungs: LCTA bilaterally with equal chest rise Abd: soft, nontender, nondistended, +BS x4 quadrants Extrem: Warm and well perfused, no cyanosis, clubbing, edema Neuro: Oriented to self and place, not situation or time, ARAGON x4, sensation intact and equal bilaterally CN II - All visual ponce intact CN II/III - PERRL CN III/IV/ - EOMI CN V - Light touch to face intact in all 3 divisions CN VII - Facial movement intact and symmetrical bilaterally CN VIII - Hearing intact CN X - Cough present CN XI - muscular movement of shoulders and sternocleidomastoid muscles intact and equal bilaterally CN XII - midline protrusion of tongue MOTOR EXAMINATION: no drift noted. NIHSS Provider NIH Stroke Scale NIH Interval (Provider): daily NIH Level of Conciousness (Provider): 0 NIH LOC Questions (Provider): 0 NIH LOC Commands (Provider): 0 NIH Best Gaze (Provider): 0 NIH Visual (Provider): 0 NIH Facial Palsy (Provider): 0 NIH Left Arm Motor (Provider): 0 NIH Right Arm Motor (Provider): 0 NIH Left Leg Motor (Provider): 0 NIH Right Leg Motor (Provider): 0 NIH Limb Ataxia (Provider): 0 NIH Sensory (Provider): 0 NIH Best Language (Provider): 0 NIH Dysarthria (Provider): 0 NIH Extinction and Inattention (Provider): 0 NIH Total Score (Provider): 0 Intracerebral Hemorrhage Volume Intracerebral Hemorrhage Score Score 30 Day Mortality following ICH 0 0% Mortality 1 13% Mortality 2 26% Mortality 3 72% Mortality 4 97% Mortality 5 100% Mortality ASSESSMENT AND PLAN Neuro: IVH c/b hydrocephalus, Advanced B/L MoyaMoya ICH score 1 CTH on arrival: IVH L > R, stable from outside hospital CTA: no spot sign. 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 and posterior circulation- Mcdermott Mcdermott -will need NSGY follow up in 4 weeks with repeat CTH to discuss revascularization (ordered) EKG on admission: NSR, QTC 471 LDL 131 HgbA1c 5.7 Stroke Etiology (TOAST criteria): Mcdermott Mcdermott Disease/Advanced Athero -Aspirin 81 mg daily -Atorvastatin 80 mg, goal LDL < 70 -Goal BP < 140 mmHg -Smoking cessation Hemorrhagic Stroke Core Measures -[facility] on admission 3 -Patient has been started on Mechanical (SCD's) and Pharmacological (SQ heparin) DVT prophylaxis will be started after stable HCT. -Antiplatelet therapy is not indicated. -Anticoagulation therapy not indicated in hemorrhagic stroke -Patients LDL 131 and HgbA1c p were checked and the patient will be discharged on atorvastatin 80 mg -Dysphagia screening ordered, and will be completed prior to patient receiving oral intake. -Stroke education booklet has been provided both written and verbal education to the patient and family regarding hemorrhagic strokes. We have reviewed the patient's personal modifiable risk factors as well as education on reducing these risk factors. -Patient is being assessed for Rehab by PT/OT/Speech and PM&R if indicated. Near syncpoal episode with orthostatic hypotension -on 07/23 while working with PT: ERT called. CTH without change. SBP dropped from 154 sitting to 89standing -GREG hose ordered -1 liter of IV fluids on 07/25 -Orthostatic precautions including gradual position changes Leukocytosis and Concern for UTI: T Max 100.5 F on 07/19, CXR unremarkable, UA with small leukocytes and 10-20 WBC's, Urine culture no growth. Blood cultures from 07/19 with no growth -Keflex discontinued on 07/25 Headache: improved, Given reglan IV and magnesium IV 07/19 -Acetaminophen PRN Hyponatremia, hypokalemia, hypomagnesiumia: Likely 2/2 poor oral intake -Replace as needed -Encourage PO intake HLD: -statin as above HTN: Goal SBP < 140 -Lisinopril increased to 40 mg on 07/20 -Norvasc 10 mg, Coreg 12.5 mg BID BPH: Improving -Flomax 0.4mg daily -Urology was consulted due to presence of false tract and they placed [place]ledo on 07/22 -Failed post void trial. Nursing staff able to place 18F coude catheter placement -Can trial of void prior to discharge: Trial of void: Obtain PVR x 2. Successful void trial is typically voided volume greater than PVR for for two separate voids, PVR < 150cc, or decreasing serial PVRs. If voided amount is less than PVR, repeat a third time to ensure not increasing. If patient does not pass void trial closer to discharge, please replace catheter and page Urology resident bone drier so we can assist with making outpatient appointment. -DC elvira today 07/28 Agitation: Delirium: likely a combination of IVH/hydrocephalus, hospital acquired -Agitated requiring IM zyprexa x1 plus additional dose of seroquel in the evening on 07/26 -Scheduled seroquel changed to PRN on 07/26, switched back to scheduled q12h on 07/27, QTc stable 443 -Seroquel decreased in morning to 12.5 mg daily, 25 mg every evening -Melatonin 6 mg ordered early evening Tobacco use: POA -Nicotine patch -Encourage cessation Love Skinner will likely be discharged to [facility] requested, pending acceptance. Dolores Schuler, AUTO MECHANICS TEACHER-CHURCH MUSICIAN 07/28/2022 7:28 AM VITAL SIGNS Temp: [97.6 F (36.4 C)-98.2 F (36.8 C)] 98.2 F (36.8 C) Pulse (Heart Rate): [70-71] 70 Resp Rate: [16-17] 16 BP: (99-143)/(53-73) 99/53 O2 Sat (%): [97 %-100 %] 97 % IMAGING/DIAGNOSTIC STUDIES No orders to display MEDICATIONS amLODIPine 10 mg Oral Daily aspirin 81 mg Oral Daily Atorvastatin 80 mg Oral QHS carveDILOL 12.5 mg Oral BID lidocaine 2 patch Transdermal Daily Lisinopril 40 mg Oral Daily Melatonin 6 mg Oral Daily early evening nicotine 1 patch Transdermal Q24H And VERIFY LINKED PATCH PLACEMENT Other Q12H QUEtiapine 25 mg Oral Q12H senna 8.6 mg Oral Daily Or senna 8.6 mg Per NG tube Daily Tamsulosin HCl 0.4 mg Oral Daily Associated attestation - Love Caceres MD - 07/29/2022 7:28 AM EST Attending Physician Note (GC) I interviewed and examined this patient with the MARKETING SALES SUPERVISOR. I reviewed the history and exam detailed in the note. 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 Suspect that the mechanism of occlusion is atherosclerotic and thus low enthusiasm for revascularization in the context of bilateral carotid occlusions. Will continue to maximize cerebral perfusion and focus on long-term blood pressure control. * Minerva Prakash PT - 07/26/2022 11:17 AM EST Acute Physical Therapy Evaluation Prior to Admission [facility] score(s): PRIOR LEVEL AM-PAC Mobility Raw Score: 24 Current AM-PAC score(s): CURRENT AM-PAC Mobility Raw Score: 9 Based on the above AM-PAC score(s) and PT clinical judgment, patient is a good candidate for discharge to Inpatient Rehab Facility Supporting Factors (would benefit from skilled therapy services): Impaired balance, Fall risk, Impaired functional status Mobility equipment available at home: none used ADL equipment available at home: none Equipment needed for discharge: to be determined Current therapy frequency recommendation in acute: Therapy Frequency: 5 times a week Precautions and Weightbearing Status: Existing Precautions/Restrictions: fall Telemetry Patient Safety Communication Prior to Visit: Rehab team, Nursing Subjective: Pt received seated in chair awake after recently sleeping with initial request to hold on therapy from RN Pain: General Pain Documentation (Adult, OB, Peds) Presence of Pain: denies pain/discomfort Home Setting Residence: House Lives With: spouse First floor setup: bedroom, tub shower Second floor setup: bedroom, walk in shower Number of stairs to enter home: (1 flight) Number of stairs in home: 12 Mobility Equipment Available: none used ADL Equipment Available: none Home Environment Details: house built into a hill Previous Level of Function Prior level ADL Overview: Independent with all ADLs 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 Objective/Observation: Vitals/Vitals Responses to Treatment: no concerns Respiratory Status O2 Device: room air Cognition Overall Cognitive Status: Impaired Arousal/Alertness: Appropriate responses to stimuli Orientation Level: Oriented to person (able to answer place, time and situation as arousal improved) Following Commands: Follows commands 50-75% of the time Safety Judgment: Decreased awareness of need for assistance Awareness of Errors: Decreased awareness of errors Deficits: Decreased awareness of deficits Attention Span: Attends with cues to redirect Memory: Decreased recall of biographical information, Decreased recall of recent events Problem Solving: Assistance required to identify errors made, Assistance required to generate solutions, Assistance required to implement solutions Cognition Comments: Pt with fluctuating cognition throughout session. One minute alert to self, thenext able to answer all orientation questions independently Vision Screen Currently wearing corrective lenses: No Speech Speech: no gross deficits noted Hearing Hearing: no gross deficits noted Extremity Assessments: RLE Assessment RLE Assessment: (Pt demonstrates clonus type movements with prolonged standing) LLE Assessment LLE Assessment: (Pt demonstrates clonus type movements with prolonged standing) Skin Integrity Skin Integrity Description: WFL Edema Edema: none noted Mobility Assessment: Balance: Sitting Balance Static Sitting-Level of Assistance: Standby Dynamic Sitting-Level of Assistance: Contact guard Skilled Rationale: Verbal cues, Technique of activity Standing Balance Static Standing-Level of Assistance: Minimum assistance, 2-person assist Dynamic Standing-Level of Assistance: Moderate assistance, 2-person assist Standing-Balance Support: Gait belt, Bilateral hand held assist Skilled Rationale: Technique of activity, Full extension to upright positioning/posture, Finding/maintaining midline positioning Standing Balance Skilled Intervention/Details: Pt demonstrating clonus type movement of B LEs during standing episodes x2 for 60-90 seconds. Pt requires significant physical A to safely return to seated position with note of B UE clonus flexion type movement pattern Transfer Assessment: Sit to Stand Transfer [place] Level: Sit->Stand: moderate assist (50% patient effort) Physical Assist: Sit->Stand: 2 person assist Assistive Device: Sit->Stand: gait belt, hand held assist Skilled Rationale: Positioning, Sequencing, Arm in arm Skilled Intervention/Details: Sit->Stand: x2 from chair Stand to Sit Transfer [place] Level: Stand->Sit: maximum assist (25% patient effort) Physical Assist: Stand->Sit: 2 person assist Assistive Device: Stand->Sit: gait belt, hand held assist Skilled Intervention/Details: Stand->Sit: Pt with clonus type movements from B LEs and requires max assist from PT and OT to safely return to seated position Gait/Functional Mobility: Stairs: Outcome Score(s): CURRENT [facility] Basic Mobility Inpatient Short Form Turning over in bed: 2 - A Lot of Assistance Sitting/standing from chair: 2 - A Lot of Assistance Moving from lying on back to sittin - A Lot of Assistance Moving to and from bed to chair: 1 - Total Assistance Walk in hospital room: 1 - Total Assistance Climbing 3-5 steps with a railin - Total Assistance CURRENT [facility] Mobility Raw Score: 9 CURRENT [facility] Mobility Functional Limitation/Modifier: 81.38% Currently Impaired in Basic Mobility- CM Interventions: Assessment & Plan: Patient was admitted for interventricular hemmorhage and seen for therapy evaluation related to decline in independent functional mobility. Exam findings include impairments in: Balance, Coordination, Sensation, Posture, Transfers, Gait/Locomotion. These impairments contribute to functional limitations including Decreased ambulation distance/endurance, Difficulty stair climbing/descent, Increased fall risk, Limited standing tolerance, Difficulty getting off the floor, Difficulty with transfers, Difficulty with bed mobility, Decreasedfunctional mobility. Current clinical presentation is Evolving - changing/inconsistent clinical characteristics (Moderate). Patient history factors impacting Plan Of Care include Impaired cognition. Patient will benefit from skilled physical therapy to address these impairments, functional limitations, and participation restrictions and has good rehab potential to achieve therapy goals. Planned Therapy Interventions: balance training, bed mobility training, endurance, functional activity tolerance, gait training, strengthening, transfer training, neuromuscular re-education, motor coordination training Patient Instruction/Education this session: transfers Plan for next session: Progress OOB as appropriate Acute PT Goals Plan of Care by Minerva Prakash PT at 07/26/2022 11:17 AM Version 1 of 1 Problem: PT - Balance/Coordination/Neuro Re-Education Goal: Sitting Dynamic/Static Balance Description: Pt will perform seated balance tasks for 15 minutes with independence UE support levelto improve safety with seated tasks. Outcome: Ongoing Goal: Standing Dynamic/Static Balance Description: Pt will perform standing balance tasks for 15 minutes with independence with out an assistive device in order to improve functional mobility and safety with standing tasks. Outcome: Ongoing Problem: PT - Mobility Goal: Ambulation Description: Pt will ambulate 200 feet with out an assistive device with independence to improve ability to navigate home environment. Outcome: Ongoing Goal: Stairs Description: Pt will ascend/descend 12 stairs with out railings with independence with out an assistive device to improve ability to perform functional mobility necessary in recommended discharge environment. Outcome: Ongoing Problem: PT - Transfers Goal: Sit <-> Stand Description: Pt will perform sit to/from stand transfers with independence with out an assistive device in order to improve functional mobility and safety. Outcome: Ongoing Goal: Strength/ROM Description: Pt will perform 2 sets of 15 repetitions of lower bilateral extremity exercises with independence in order to improve strength, maintain ROM, necessary for functional mobility. Outcome: Ongoing PT treatment consisted of Therapeutic Activity to work and progress towards above goal(s). Evaluating Therapist: Minerva Prakash PT Additional Details: Co-evaluation/co-treatment performed?: Yes, simultaneous billable skilled care This co-evaluation session performed between PT and OT was beneficial, necessary and provided distinct services in establishing this person's individual plan of care. Medical complexity with functional deficits necessitated two skilled therapy disciplines working concurrently to determine each discipline's goals. This co-treatment was medically necessary due to patient's: Cognitive issues, Coordination issues, Postural control and Alertness/arousal I used facemask, protective eye shield, and gloves in today's patient interaction. Evaluation Complexity Components History: Moderate (1-2 personal factors and/or comorbidities) Body Systems Review: Moderate (Addressing a total of 3 or more elements) Clinical Presentation: Evolving - changing/inconsistent clinical characteristics (Moderate) Clinical Decision Making: Moderate Time In: 0945 Time Out: 1005 Total Visit Time: 20 minutes Total Treatment Time (skilled, billable minutes): 20 minutes Patient location at end of session: chair Alarms on at end of session: chair alarm and RN aware Needs in reach. Upon discontinuation of Acute Care Physical Therapy Services or patient discharge from the hospitalthis note represents the current Physical Therapy Discharge Summary. * Divina Larkin OT - 07/26/2022 10:09 AM EST Acute Occupational Therapy Evaluation Prior to Admission AM-PAC Score: PRIOR LEVEL AM-PAC Activity Raw Score: 24 Current AM-PAC score(s): CURRENT AM-PAC Activity Raw Score: 13 Based on the above AM-PAC score(s) and OT clinical judgment, discharge destination recommendation is: Inpatient Rehab Facility Supporting Factors (would benefit from skilled therapy services): Patient status is anticipated to be appropriate to tolerate inpatient rehab therapy requirements at time of discharge from acute care, Impaired functional status, Decreased strength, Impaired balance, Decreased endurance, Impaired cognitive status, Impaired self-care abilities, Assistance needed with functional mobility, Fall risk,Recent decline in functional mobility, Recent decline in self-care abilities, Recent decline in cognitive function, Patient has appropriate assistance and setup at home for ultimate discharge to homeonce patient has progressed functionally following inpatient rehab Mobility equipment available at home: none used ADL equipment available at home: none Equipment recommendations for discharge: to be determined Current therapy frequency recommendation(s) in acute: 5 times a week Precautions and Weightbearing Status: OT Existing Precautions/Restrictions: fall Telemetry Patient Safety Communication Prior to Visit: Rehab team, Nursing Subjective: I almost , I had a stroke when asked why he was in the hospital. 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 Respiratory Status O2 Device: room air Vision Screen Currently wearing corrective lenses: No Speech Speech: no gross deficits noted Hearing Hearing: no gross deficits noted Cognition Overall Cognitive Status: Impaired Arousal/Alertness: Inconsistent responses to stimuli Orientation Level: Oriented to person, Oriented to place, Oriented to situation, Oriented to time Following Commands: Follows commands 50-75% of the time Safety Judgment: Decreased awareness of need for assistance, Decreased awareness of need for safety Awareness of Errors: Decreased awareness of errors Deficits: Decreased awareness of deficits Attention Span: Difficulty dividing attention Memory: Decreased recall of biographical information Problem Solving: Assistance required to generate solutions, Assistance required to identify errors made Cognition Comments: Pt with fluctuating cognition throughout session. One minute alert to self onlyand attempting to stand by self, the next able to answer all orientation questions independently and able to recall safety info ADLs: ADL Anticipated Performance (ADLs not directly observed this session): Bathing Eating Assistance: Minimal Eating Location: chair Eating Deficit: Opening/closing containers Eating Skilled Rationale (Verbal/Tactile/Visual/Demonstration): Maintain precautions Eating Intervention/Details: unaware of deficits Grooming Assistance: Minimal Grooming Location: seated in chair Grooming Deficit: Opening/closing containers Grooming Skilled Rationale (Verbal/Tactile/Visual/Demonstration): Maintain precautions Grooming Intervention/Details: attempting unsafe standing Bathing Assistance: Maximal UE Dressing Assistance: Maximal UE Dressing Location: seated in chair UE Dressing Deficit: Thread LUE, Thread RUE UE Dressing Skilled Rationale (Verbal/Tactile/Visual/Demonstration): Technique of activity UE Dressing Intervention/Details: shaking during movement LE Dressing Assistance: Total LE Dressing Location: seated in chair LE Dressing Deficit: Don/doff L sock, Don/doff R sock LE Dressing Skilled Rationale (Verbal/Tactile/Visual/Demonstration): Technique of activity LE Dressing Intervention/Details: tremor with attempted standing Toilet Assistance: Other (Comment) Toileting Intervention/Details: toledo in place, no need for bed jimenez Extremity Assessments: RUE Assessment RUE Assessment: (ROM and strength WFL, but significantly limited motor planning) LUE Assessment LUE Assessment: (ROM and strength WFL, but significantly limited motor planning) Balance: Sitting Balance Static Sitting-Level of Assistance: Standby Dynamic Sitting-Level of Assistance: Contact guard Sitting Balance Skilled Intervention/Details: decreased safety awareness Standing Balance Static Standing-Level of Assistance: Moderate assistance, 2-person assist Dynamic Standing-Level of Assistance: Maximum assistance Standing-Balance Support: Bilateral hand held assist Standing Balance Skilled Intervention/Details: When in standing, demonstrating clonus/shaking Neuro: Sensation Sensation Comments: denies numbness/tingles Proprioception Proprioception: intact Gross Coordination Gross Coordination: LUE impaired, RUE impaired Fine Motor Coordination Additional Documentation: Yes Fine Motor Coordination Left Hand, Finger To Nose: mild impairment Right Hand, Finger To Nose: mild impairment Left Hand Thumb/Finger Opposition Skills: moderate impairment Right Hand Thumb/Finger Opposition Skills: moderate impairment Left Hand, Manipulation of Objects: moderate impairment Right Hand, Manipulation of Objects: moderate impairment Skin and Edema: Mobility Assessment: Transfer Assessment: Sit to Stand Transfer [place] Level: Sit->Stand: moderate assist (50% patient effort) Physical Assist: Sit->Stand: 2 person assist Assistive Device: Sit->Stand: gait belt Skilled Rationale: Cues for increased safety Skilled Intervention/Details: Sit->Stand: limited awareness of safety limitations at time Stand to Sit Transfer [place] Level: Stand->Sit: maximum assist (25% patient effort) Physical Assist: Stand->Sit: 2 person assist Assistive Device: Stand->Sit: gait belt Skilled Rationale: Cues for increased safety Skilled Intervention/Details: Stand->Sit: limited awareness of shaking Functional Mobility: Outcome Score(s): CURRENT [facility] Daily Activity Inpatient Short Form Putting on/Taking Off Lower Body Clothin - Total Assistance Bathin - A Lot of Assistance Toiletin - A Lot of Assistance Putting on/Taking Off Upper Body Clothin - A Lot of Assistance Groomin - A Little Assistance Eatin - A Little Assistance CURRENT [facility] Activity Raw Score: 13 CURRENT [facility] Activity Functional Limitation/Modifier: 63.03% Currently Impaired in Daily Activity- CL Interventions: Assessment & Plan: Patient was admitted for CVA and seen for therapy evaluation related to concerns with ability to complete safe ADLs. Pt transferred from [facility]. Exam findings include impairments in: attention, balance, cognitive impairments, coordination, motor function, muscle performance, posture, strength, transfers. These impairments contribute to occupational performance limitations including bathing, dressing, grooming, toileting, functional mobility. The following factors impact the plan of care: Patient will benefit from skilled occupational therapy to address these impairments, occupational performance limitations, and participation restrictions. Patient's rehab potential is: good, to achieve stated therapy goals. Planned Therapy Interventions (OT Eval): ADL retraining, balance training, cognitive training, functional activity tolerance, transfer training, motor coordination training Patient Instruction/Education this session: Patient Instruction: the role of OT, need to have assist with OOB, plan of care Plan for next session: Standing grooming Acute OT Goals Plan of Care by Divina Larkin OT at 07/26/2022 5:18 PM Version 1 of 1 Problem: OT - Dressing Goal: Upper Body Dressing Description: Pt will complete UE dressing task seated in chair with minimal assistance for improvedability to complete self-care activities. Outcome: Ongoing Problem: OT - ADLs Goal: Grooming Description: Pt will complete grooming in standing with contact guard assistance for improved ability to safely complete ADLs. Outcome: Ongoing Goal: Feeding Description: Pt will perform self-feeding task while seated with modified independence to promote success and safety during daily routine. Outcome: Ongoing Problem: OT - Balance Goal: Balance - Standing Description: Pt will perform 5 minutes of functional ADL task in standing with minimal assistance and balance level of minimum assist to promote safety and improved balance required for self-care activities. Outcome: Ongoing OT treatment consisted of ADL retraining, balance training and motor coordination training to work and progress towards above goal(s). Evaluating Therapist: Divina Larkin OT Additional Details: Co-evaluation/co-treatment performed?: Yes, simultaneous billable skilled care This co-evaluation session performed between OT and PT was beneficial, necessary and provided distinct services in establishing this person's individual plan of care. Medical complexity with functional deficits necessitated two skilled therapy disciplines working concurrently to determine each discipline's goals. This co-treatment was medically necessary due to patient's: Cognitive issues, Coordination issues and Postural control I used gloves and facemask in today's patient interaction. OT Evaluation Complexity Occupational Profile and Client History: Assessment of Occupational Performance: Clinical Decision/Performance Deficits: Time In: 0946 Time Out: 1009 Total Visit Time: 23 minutes Total Treatment Time (skilled, billable minutes): 23 minutes Patient location at end of session: chair Alarms on at end of session: chair alarm and RN aware Needs in reach. Upon discontinuation of Acute Care Occupational Therapy Services or patient discharge from the hospital this note represents the current Occupational Therapy Discharge Summary. Divina Larkin MS OTR/L License [id number] * Minerva Prakash PT - 07/26/2022 9:42 AM EST Physical Therapy Attempt Note 07/26/2022 PT Therapy Completed: Attempted Attempted Reason: Other (see comments) Pt just finally fell asleep and per RN request hold therapy assessment at this time. Minerva Prakash PT Time In: 941 Time Out: 0942 Total Visit Time: 0 minutes Total Treatment Time (skilled, billable minutes): 0 [facility] Narrative* Dinesh Blackwell APRN-[employer] - 07/31/2022 11:16 AM EST Images from the original note were not included. Discharge Summary Name: Love Skinner Age: 67 y.o. Birthday: 1955 Admit Date: 07/25/2022 2:54 PM Discharge Date: 07/31/22 Discharge Time: 1130 Discharge Unit: [address] [place] [address] Admission Information Admitting Physician: Idalmis Machado MD Discharge Information Discharge Physician: Love Caceres MD Problem List Active Hospital Problems Diagnosis Stroke Resolved Hospital Problems No resolved problems to display. Brief Summary of Hospital Course for Discharge Summary: Dear Providers, We recently had the pleasure of taking care of Love Skinner at [facility]. As you well know Love Skinner is a 67 y.o. male with PMH significant fortobacco use disorder who presented to [facility]SH ED with nausea, vomiting, and headache found to have interventricular hemorrhage. Symptoms started around 1200 on 07/13/2022 while he was working. He was taken to OSH where CTH demonstrated bilateral IVH L>R. He was transferred to [facility] for further work-up. He does not take any anticoagulants or antiplatelets. He arrived on cardene drip and SBP less [id number]. NIH 3 on arrival for LUE weakness and confusion. His work up included: CTH on arrival: IVH L > R, stable from outside hospital CTA: no spot sign. 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 He is being discharged to SNF in a stable condition.This discharge plan has been explained to the patient and his family. Diagnosis: IVH c/b hydrocephalus, ICH score 1 Mechanism: Mcdermott Mcdermott Disease/Advanced [employer] Management plan at discharge: -ASA 81mg daily for secondary stroke risk reduction -Atorvastatin 80mg daily for secondary stroke risk reduction -Continue home medications as prescribed -SNF for rehab Follow up plan after discharge: -Follow up at Neurovascular clinic with ZACK Farrell within 4-6 weeks of discharge -Follow up with PCP within 2 weeks of discharge -Follow up with NSGY in 4 weeks with repeat CTH to discuss revascularization (ordered) -Follow up with urology as scheduled Additional medical concerns addressed: Near syncpoal episode with orthostatic hypotension -on 07/23 while working with PT: CTH without change. SBP dropped from 154 sitting to 89 standing -GREG hose and IV fluids -Orthostatic precautions including gradual position changes Leukocytosis and Concern for UTI: resolved T Max 100.5 F on 07/19, CXR unremarkable, UA with small leukocytes and 10-20 WBC's, Urine culture no growth. Blood cultures from 07/19 with no growth -Keflex discontinued on 07/25 Headache: resolved, Given reglan IV and magnesium IV 07/19 -Acetaminophen PRN HTN: Goal SBP < 140 -Lisinopril increased to 40 mg on 07/20 -Norvasc 10 mg, Coreg 12.5 mg BID BPH: Improving -Flomax 0.4mg daily -Urology was consulted due to presence of false tract and they placed toledo on 07/22 -DC [place] 07/29, passed void trial, outpatient urology follow up Agitation, Delirium: likely a combination of IVH/hydrocephalus, hospital acquired -improved, continue current regimen of Seroquel 12.5mg qAM and 25mg qPM Tobacco use: POA -Nicotine patch -Encourage cessation Physical exam on the day of discharge: Gen: awake, alert, NAD HEENT: normocephalic, no scalp lesions or tenderness Neck: trachea midline CV: +S1S2, RRR, no m/r/g Lungs: LCTA bilaterally with equal chest rise Abd: soft, nontender, nondistended, +BS x4 quadrants Extrem: Warm and well perfused, no edema Neuro: Oriented to self and place, disoriented to situation and time, ARAGON x 4, sensation intact andequal bilaterally to light touch CN II - All visual ponce intact CN II/III - PERRLA CN III/IV/ - EOMI CN V - Light touch to face intact in V1-3 CN VII - Facial movement intact and symmetrical bilaterally CN VIII - Hearing intact CN X - Cough present CN XI - muscular movement of shoulders and sternocleidomastoid muscles intact and equal bilaterally CN XII - midline protrusion of tongue MOTOR EXAMINATION: no drift Provider NIH Stroke Scale NIH Interval (Provider): daily NIH Level of Conciousness (Provider): 0 NIH LOC Questions (Provider): 1 NIH LOC Commands (Provider): 0 NIH Best Gaze (Provider): 0 NIH Visual (Provider): 0 NIH Facial Palsy (Provider): 0 NIH Left Arm Motor (Provider): 0 NIH Right Arm Motor (Provider): 0 NIH Left Leg Motor (Provider): 0 NIH Right Leg Motor (Provider): 0 NIH Limb Ataxia (Provider): 0 NIH Sensory (Provider): 0 NIH Best Language (Provider): 1 NIH Dysarthria (Provider): 0 NIH Extinction and Inattention (Provider): 0 NIH Total Score (Provider): 2 Modified Burlington Scale Score Premorbid (MRSS): No symptoms Modified Bur[place] Scale Score at Discharge (MRSS): Slight disability, unable to carry out all previous activities, but is able to look after own affairs without assistance Brief Summary of Consults for Discharge Summary: Brief Summary of Procedures and Imaging for Discharge Summary: Summary of last selected lab results and date obtained: Lab Results Component Value Date WBC 10.08 07/30/2022 HGB 14.1 07/30/2022 HCT 42.8 07/30/2022 PLATELET 280 07/31/2022 MCV 94.1 07/30/2022 Lab Results Component Value Date SODIUM 138 07/30/2022 POTASSIUM 4.3 07/30/2022 CHLORIDE 105 07/30/2022 CO2 27 07/30/2022 BUN 27 (H) 07/30/2022 CREATSERUM 0.72 07/30/2022 GLUCOSE 128 (H) 07/30/2022 Lab Results Component Value Date ALT 16 07/13/2022 AST 18 07/13/2022 ALKPHOS 57 07/13/2022 BILITOTAL 1.5 (H) 07/13/2022 BILIDIRECT 0.2 07/13/2022 Brief Summary of Labs for Discharge Summary: Discharge Orders CT HEAD WITHOUT CONTRAST AMB REFERRAL TO NEUROSURGERY AMB REFERRAL TO UROLOGY AMB REFERRAL TO LONG TERM FACILITY Current Outpatient Meds: Medication List for when you go home START taking these medications amLODIPine 10 MG TABS Take 1 tablet by mouth daily. Commonly known as: NORVASC carveDILOL 12.5 MG TABS Take 1 tablet by mouth 2 times daily. Commonly known as: COREG Melatonin 3 MG TABS Take 2 tablets by mouth every evening at 6 PM. nicotine 14 MG/24HR PT24 patch Place 1 patch on skin every 24 hours. Commonly known as: NICODERM CQ * QUEtiapine 25 MG TABS Take 1 tablet by mouth at bedtime. Commonly known as: SEROquel * QUEtiapine 25 MG TABS Take 0.5 tablets by mouth daily. Commonly known as: SEROquel Start taking on: August 01, 2022 * The same medication is listed twice. Please discuss with your provider. CONTINUE taking these medications aspirin 81 MG CHEW chewable tablet Chew 1 tablet daily. atorvastatin 80 MG TABS Take 1 tablet by mouth at bedtime. Commonly known as: LIPITOR lisinopril 40 MG TABS Take 1 tablet by mouth daily. Commonly known as: PRINIVIL Tamsulosin HCl 0.4 MG CAPS Take 1 capsule by mouth daily. Commonly known as: FLOMAX STOP taking these medications cephALEXin 500 MG CAPS Commonly known as: KEFLEX Medication Instructions: Know your medicines ? Make sure you know why you are taking each medicine. ? Make a master list of all your medicines. Write down the medicine names and doctors' names. Include doses and side effects too. And write down why you take each medicine. Include all prescription and hdrb-bba-htdhfct medicines, vitamins, and supplements. Keep this list up to date. Take a copy to each doctor visit. ? Know when you will run out of each medicine. Ask your pharmacist if there are ways the drugstore can remind you to refill your medicines so you do not run out. Write refill reminders on your calendar. Don't wait until you have a few pills left. ? Ask your pharmacist to plan your refills so that you can peanut picker all your medicines at the same time. This can mean fewer trips to the drugstore. ? If we have prescribed you a new medication during your stay, please contact with your primary physician for refills Follow-up: [address] [facility] [address] Follow up Please call to schedule follow-up appointment with urology for urinary retention. Upcoming Appointments (up to five)-Some appointments for Medical Center outpatient clinics or diagnostic testing locations are not displayed below Provider Department Dept Phone 08/25/2022 9:45 AM VARUN PATTERSON [facility] Imaging Out[facility] [place] Arrive at: Arrive to 1st Floor Registration Desk [phone] 08/25/2022 11:30 AM Robby Ly [facility] [phone] 09/29/2022 12:00 PM Ben Oviedo Jr. Neurology [facility] Outpatient Care [phone] Associated attestation - Love Caceres MD - 07/31/2022 4:43 PM EST Attending Physician Note (GC) I interviewed and examined this patient with the MARKETING SALES SUPERVISOR. I reviewed the history and exam detailed in the note. 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 Main problem has been agitation, although that has been stable for several days. Discharging to SNF on asa + statin. documented [facility] Narrative* Dinesh BlackwellANGIEN-CHURCH MUSICIAN - 07/31/2022 11:16 AM EST Images from the original note were not included. Discharge Summary Name: Love Skinner Age: 67 y.o. Birthday: 1955 Admit Date: 07/25/2022 2:54 PM Discharge Date: 07/31/22 Discharge Time: 1130 Discharge Unit: [address] [place] [address] Admission Information Admitting Physician: Idalmis Machado MD Discharge Information Discharge Physician: Love Caceres MD Problem List Active Hospital Problems Diagnosis Stroke Resolved Hospital Problems No resolved problems to display. Brief Summary of Hospital Course for Discharge Summary: Dear Providers, We recently had the pleasure of taking care of Love Skinner at [facility]. As you well know Love Skinner is a 67 y.o. male with PMH significant fortobacco use disorder who presented to OSH ED with nausea, vomiting, and headache found to have interventricular hemorrhage. Symptoms started around 1200 on 07/13/2022 while he was working. He was taken to OSH where CTH demonstrated bilateral IVH L>R. He was transferred to [facility] for further work-up. He does not take any anticoagulants or antiplatelets. He arrived on cardene drip and SBP less [id number]. NIH 3 on arrival for LUE weakness and confusion. His work up included: CTH on arrival: IVH L > R, stable from outside hospital CTA: no spot sign. 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 He is being discharged to SNF in a stable condition.This discharge plan has been explained to the patient and his family. Diagnosis: IVH c/b hydrocephalus, ICH score 1 Mechanism: Mcdermott Mcdermott Disease/Advanced Athero Management plan at discharge: -ASA 81mg daily for secondary stroke risk reduction -Atorvastatin 80mg daily for secondary stroke risk reduction -Continue home medications as prescribed -SNF for rehab Follow up plan after discharge: -Follow up at Neurovascular clinic with CHURCH MUSICIAN Lilli Farrell within 4-6 weeks of discharge -Follow up with PCP within 2 weeks of discharge -Follow up with NSGY in 4 weeks with repeat CTH to discuss revascularization (ordered) -Follow up with urology as scheduled Additional medical concerns addressed: Near syncpoal episode with orthostatic hypotension -on 07/23 while working with PT: CTH without change. SBP dropped from 154 sitting to 89 standing -GREG hose and IV fluids -Orthostatic precautions including gradual position changes Leukocytosis and Concern for UTI: resolved T Max 100.5 F on 07/19, CXR unremarkable, UA with small leukocytes and 10-20 WBC's, Urine culture no growth. Blood cultures from 07/19 with no growth -Keflex discontinued on 07/25 Headache: resolved, Given reglan IV and magnesium IV 07/19 -Acetaminophen PRN HTN: Goal SBP < 140 -Lisinopril increased to 40 mg on 07/20 -Norvasc 10 mg, Coreg 12.5 mg BID BPH: Improving -Flomax 0.4mg daily -Urology was consulted due to presence of false tract and they placed toledo on 07/22 -DC toledo 07/29, passed void trial, outpatient urology follow up Agitation, Delirium: likely a combination of IVH/hydrocephalus, hospital acquired -improved, continue current regimen of Seroquel 12.5mg qAM and 25mg qPM Tobacco use: POA -Nicotine patch -Encourage cessation Physical exam on the day of discharge: Gen: awake, alert, NAD HEENT: normocephalic, no scalp lesions or tenderness Neck: trachea midline CV: +S1S2, RRR, no m/r/g Lungs: LCTA bilaterally with equal chest rise Abd: soft, nontender, nondistended, +BS x4 quadrants Extrem: Warm and well perfused, no edema Neuro: Oriented to self and place, disoriented to situation and time, ARAGON x 4, sensation intact andequal bilaterally to light touch CN II - All visual ponce intact CN II/III - PERRLA CN III/IV/ - EOMI CN V - Light touch to face intact in V1-3 CN VII - Facial movement intact and symmetrical bilaterally CN VIII - Hearing intact CN X - Cough present CN XI - muscular movement of shoulders and sternocleidomastoid muscles intact and equal bilaterally CN XII - midline protrusion of tongue MOTOR EXAMINATION: no drift Provider NIH Stroke Scale NIH Interval (Provider): daily NIH Level of Conciousness (Provider): 0 NIH LOC Questions (Provider): 1 NIH LOC Commands (Provider): 0 NIH Best Gaze (Provider): 0 NIH Visual (Provider): 0 NIH Facial Palsy (Provider): 0 NIH Left Arm Motor (Provider): 0 NIH Right Arm Motor (Provider): 0 NIH Left Leg Motor (Provider): 0 NIH Right Leg Motor (Provider): 0 NIH Limb Ataxia (Provider): 0 NIH Sensory (Provider): 0 NIH Best Language (Provider): 1 NIH Dysarthria (Provider): 0 NIH Extinction and Inattention (Provider): 0 NIH Total Score (Provider): 2 Modified Burlington Scale Score Premorbid (MRSS): No symptoms Modified Burlington Scale Score at Discharge (MRSS): Slight disability, unable to carry out all previous activities, but is able to look after own affairs without assistance Brief Summary of Consults for Discharge Summary: Brief Summary of Procedures and Imaging for Discharge Summary: Summary of last selected lab results and date obtained: Lab Results Component Value Date WBC 10.08 07/30/2022 HGB 14.1 07/30/2022 HCT 42.8 07/30/2022 PLATELET 280 07/31/2022 MCV 94.1 07/30/2022 Lab Results Component Value Date SODIUM 138 07/30/2022 POTASSIUM 4.3 07/30/2022 CHLORIDE 105 07/30/2022 CO2 27 07/30/2022 BUN 27 (H) 07/30/2022 CREATSERUM 0.72 07/30/2022 GLUCOSE 128 (H) 07/30/2022 Lab Results Component Value Date ALT 16 07/13/2022 AST 18 07/13/2022 ALKPHOS 57 07/13/2022 BILITOTAL 1.5 (H) 07/13/2022 BILIDIRECT 0.2 07/13/2022 Brief Summary of Labs for Discharge Summary: Discharge Orders CT HEAD WITHOUT CONTRAST AMB REFERRAL TO NEUROSURGERY AMB REFERRAL TO UROLOGY AMB REFERRAL TO LONG TERM FACILITY Current Outpatient Meds: Medication List for when you go home START taking these medications amLODIPine 10 MG TABS Take 1 tablet by mouth daily. Commonly known as: NORVASC carveDILOL 12.5 MG TABS Take 1 tablet by mouth 2 times daily. Commonly known as: COREG Melatonin 3 MG TABS Take 2 tablets by mouth every evening at 6 PM. nicotine 14 MG/24HR PT24 patch Place 1 patch on skin every 24 hours. Commonly known as: NICODERM CQ * QUEtiapine 25 MG TABS Take 1 tablet by mouth at bedtime. Commonly known as: SEROquel * QUEtiapine 25 MG TABS Take 0.5 tablets by mouth daily. Commonly known as: SEROquel Start taking on: August 01, 2022 * The same medication is listed twice. Please discuss with your provider. CONTINUE taking these medications aspirin 81 MG CHEW chewable tablet Chew 1 tablet daily. atorvastatin 80 MG TABS Take 1 tablet by mouth at bedtime. Commonly known as: LIPITOR lisinopril 40 MG TABS Take 1 tablet by mouth daily. Commonly known as: PRINIVIL Tamsulosin HCl 0.4 MG CAPS Take 1 capsule by mouth daily. Commonly known as: FLOMAX STOP taking these medications cephALEXin 500 MG CAPS Commonly known as: KEFLEX Medication Instructions: Know your medicines ? Make sure you know why you are taking each medicine. ? Make a master list of all your medicines. Write down the medicine names and doctors' names. Include doses and side effects too. And write down why you take each medicine. Include all prescription and rpnh-xle-plbwboj medicines, vitamins, and supplements. Keep this list up to date. Take a copy to each doctor visit. ? Know when you will run out of each medicine. Ask your pharmacist if there are ways the drugstore can remind you to refill your medicines so you do not run out. Write refill reminders on your calendar. Don't wait until you have a few pills left. ? Ask your pharmacist to plan your refills so that you can peanut picker all your medicines at the same time. This can mean fewer trips to the drugstore. ? If we have prescribed you a new medication during your stay, please contact with your primary physician for refills Follow-up: JO[address] [facility] [phone] Follow up Please call to schedule follow-up appointment with urology for urinary retention. Upcoming Appointments (up to five)-Some appointments for Medical Center outpatient clinics or diagnostic testing locations are not displayed below Provider Department Dept Phone 08/25/2022 9:45 AM [facility] Imaging Outpatient Care [place] Arrive at: Arrive to 1st Floor Registration Desk [phone] 08/25/2022 11:30 AM Robby Ly [facility] [phone] 09/29/2022 12:00 PM Ben Oviedo Minerva Neurology [facility] Outpatient [facility] [phone] Associated attestation - Love Caceres MD - 07/31/2022 4:43 PM EST Attending Physician Note (GC) I interviewed and examined this patient with the MARKETING SALES SUPERVISOR. I reviewed the history and exam detailed in the note. 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 Main problem has been agitation, although that has been stable for several days. [facility] SN[facility] on [facility]a [facility] Reason for visit Narrative* Auth/Cert Specialty Diagnoses / Procedures Referred By Otoniel t Referred To Contact Diagnoses IVC Idalmis Machado MD [address] [place] [address] [facility] [address] [place] [address] Referral ID Status Reason Start Date Expiration Date Visits Re quested Visits Authorized [id number] [address] [facility]01-05-2023 Note* Plan of Care - Topher Nevarez PT - 07/30/2022 11:40 AM EST Problem: PT - Balance/Coordination/Neuro Re-Education Goal: Sitting Dynamic/Static Balance Description: Pt will perform seated balance tasks for 15 minutes with independence UE support levelto improve safety with seated tasks. Outcome: Progressing Toward Goal Goal: Standing Dynamic/Static Balance Description: Pt will perform standing balance tasks for 15 minutes with independence with out an assistive device in order to improve functional mobility and safety with standing tasks. Outcome: Progressing Toward Goal Problem: PT - Mobility Goal: Ambulation Description: Pt will ambulate 200 feet with out an assistive device with independence to improve ability to navigate home environment. Outcome: Progressing Toward Goal Goal: Stairs Description: Pt will ascend/descend 12 stairs with out railings with independence with out an assistive device to improve ability to perform functional mobility necessary in recommended discharge environment. Outcome: Progressing Toward Goal Problem: PT - Transfers Goal: Sit <-> Stand Description: Pt will perform sit to/from stand transfers with independence with out an assistive device in order to improve functional mobility and safety. Outcome: Progressing Toward Goal [facility]01-05-2023 Note* Plan of Care - Topher Nevarez PT - 07/30/2022 11:40 AM EST Problem: PT - Balance/Coordination/Neuro Re-Education Goal: Sitting Dynamic/Static Balance Description: Pt will perform seated balance tasks for 15 minutes with independence UE support levelto improve safety with seated tasks. Outcome: Progressing Toward Goal Goal: Standing Dynamic/Static Balance Description: Pt will perform standing balance tasks for 15 minutes with independence with out an assistive device in order to improve functional mobility and safety with standing tasks. Outcome: Progressing Toward Goal Problem: PT - Mobility Goal: Ambulation Description: Pt will ambulate 200 feet with out an assistive device with independence to improve ability to navigate home environment. Outcome: Progressing Toward Goal Goal: Stairs Description: Pt will ascend/descend 12 stairs with out railings with independence with out an assistive device to improve ability to perform functional mobility necessary in recommended discharge environment. Outcome: Progressing Toward Goal Problem: PT - Transfers Goal: Sit <-> Stand Description: Pt will perform sit to/from stand transfers with independence with out an assistive device in order to improve functional mobility and safety. Outcome: Progressing Toward Goal [facility]01-05-2023 NoteAcute Coronary Syndrome (ACS): Initial Evaluation and Management: [email or web address] [facility]01-05-2023 NoteAcute Coronary Syndrome (ACS): Initial Evaluation and Management: [email or web address] [facility]01-05-2023 Note* Nursing Notes - Crys Weir RN - 07/30/2022 12:20 AM EST Pt. Called staff to the room for c/o his chest hurting and feeling like he is dying. Vitals stable, 12-lead EKG showed Sinus Rhythm with First Degree AV Block. 2L of O2 placed on patient for comfort, morning labs drawn and 10mg Atarax administered. RN notified neurovascular physician DO Salasabout patient's condition. Physician ordered CXR, GI cocktail and STAT troponin to be added to morning lab draw. RN will continue to monitor patient and update physician on patient's progress. Vitals: 07/29/22 2351 BP: 139/64 Pulse: 66 Resp: 15 Temp: 97.9 F (36.6 C) [facility]01-05-2023 Note* Nursing Notes - Crys Weir RN - 07/30/2022 12:20 AM EST Pt. Called staff to the room for c/o his chest hurting and feeling like he is dying. Vitals stable, 12-lead EKG showed Sinus Rhythm with First Degree AV Block. 2L of O2 placed on patient for comfort, morning labs drawn and 10mg Atarax administered. RN notified neurovascular physician DO Eliezerut patient's condition. Physician ordered CXR, GI cocktail and STAT troponin to be added to morning lab draw. RN will continue to monitor patient and update physician on patient's progress. Vitals: 07/29/22 2351 BP: 139/64 Pulse: 66 Resp: 15 Temp: 97.9 F (36.6 C) [facility]01-04-2023 Note* Nursing Notes - Crys Weir RN - 07/29/2022 9:47 PM EST Order placed for toledo cath after patient had difficulty urinating in voiding trial. Patient requested a walk before urinating and was able to urinate a large amount in toilet. PVR was 29ml. NotifiedNeurovascular physician DO Monroy. RN to continue to monitor, no toledo needed at this time. [facility]01-04-2023 Note* Nursing Notes - Crys Weir RN - 07/29/2022 9:47 PM EST Order placed for toledo cath after patient had difficulty urinating in voiding trial. Patient requested a walk before urinating and was able to urinate a large amount in toilet. PVR was 29ml. NotifiedNeurovascular physician DO Monroy. RN to continue to monitor, no toledo needed at this time. [facility]01-04-2023 Note* Nursing Notes - Delicia Downey RN - 07/29/2022 6:09 PM EST Patient with syncopal episode while up trying to urinate. Patient did not fall, he was lowered downto the toilet. He was unresponsive for a moment, appearing pale in face. B/P 90/50's after getting him back to the bed. Patient unable to urinate. Bladder scanned for 400 ml. Will notify physician. [facility]01-04-2023 Note* Nursing Notes - Delicia Downey RN - 07/29/2022 6:09 PM EST Patient with syncopal episode while up trying to urinate. Patient did not fall, he was lowered downto the toilet. He was unresponsive for a moment, appearing pale in face. B/P 90/50's after getting him back to the bed. Patient unable to urinate. Bladder scanned for 400 ml. Will notify physician. [facility]01-04-2023 Note* Plan of Care - Tejas Menon OT - 07/29/2022 2:54 PM EST Problem: OT - Dressing Goal: Upper Body Dressing Description: Pt will complete UE dressing task seated in chair with minimal assistance for improvedability to complete self-care activities. Outcome: Ongoing Problem: OT - ADLs Goal: Grooming Description: Pt will complete grooming in standing with contact guard assistance for improved ability to safely complete ADLs. Outcome: Ongoing Goal: Feeding Description: Pt will perform self-feeding task while seated with modified independence to promote success and safety during daily routine. Outcome: Ongoing Problem: OT - Balance Goal: Balance - Standing Description: Pt will perform 5 minutes of functional ADL task in standing with minimal assistance and balance level of minimum assist to promote safety and improved balance required for self-care activities. Outcome: Ongoing [facility]01-04-2023 Note* Plan of Care - Tejas Menon OT - 07/29/2022 2:54 PM EST Problem: OT - Dressing Goal: Upper Body Dressing Description: Pt will complete UE dressing task seated in chair with minimal assistance for improvedability to complete self-care activities. Outcome: Ongoing Problem: OT - ADLs Goal: Grooming Description: Pt will complete grooming in standing with contact guard assistance for improved ability to safely complete ADLs. Outcome: Ongoing Goal: Feeding Description: Pt will perform self-feeding task while seated with modified independence to promote success and safety during daily routine. Outcome: Ongoing Problem: OT - Balance Goal: Balance - Standing Description: Pt will perform 5 minutes of functional ADL task in standing with minimal assistance and balance level of minimum assist to promote safety and improved balance required for self-care activities. Outcome: Ongoing [facility]01-04-2023 Note* Nursing Notes - Carli Shanks RN - 07/29/2022 12:31 PM EST BEHAVIORAL EMERGENCY RESPONSE TEAM (DESMOND) RN NOTE 07/29/2022 Love Skinner : 1955 Patient seen during [facility]OND rounding. Patient observed sitting up in chair, eating lunch. No 1:1 present at bedside. Patient appears calm at this time. Per chart, patient was agitated overnight on 07/27 requiring a one time dose of IM Zyprexa. Consider adding standing PRN medication orders for agitationto prevent delay in administration if agitation should reoccur. DESMOND is available [phone] if needs arise. Carli Shanks RN-[facility] Pager: [phone] D[facility]OND Phone: [phone] [facility]01-04-2023 Note* Nursing Notes - Carli Shanks RN - 07/29/2022 12:31 PM EST BEHAVIORAL EMERGENCY RESPONSE TEAM (DESMOND) RN NOTE 07/29/2022 Love Skinner : 1955 Patient seen during DESMOND rounding. Patient observed sitting up in chair, eating lunch. No 1:1 present at bedside. Patient appears calm at this time. Per chart, patient was agitated overnight on 07/27 requiring a one time dose of IM Zyprexa. Consider adding standing PRN medication orders for agitationto prevent delay in administration if agitation should reoccur. DESMOND is available [phone] if needs arise. Carli Shanks RN-[facility] Pager: [phone] DESMOND Phone: [phone] [facility]01-04-2023 Note* Plan of Care - Crys Weir RN - 07/29/2022 5:23 AM EST Problem: Patient Care Overview Goal: Plan of Care Review Outcome: Progressing Toward Goal Goal: Individualization & Mutuality Outcome: Progressing Toward Goal Goal: Discharge Needs Assessment Outcome: Progressing Toward Goal Problem: Stroke (Ischemic) (Adult) Goal: Signs and Symptoms of Listed Potential Problems Will be Absent, Minimized or Managed (Stroke) Description: Signs and symptoms of listed potential problems will be absent, minimized or managed by discharge/transition of care (reference Stroke (Ischemic) (Adult) CPG). Outcome: Progressing Toward Goal [facility]01-04-2023 Note* Plan of Care - Crys Weir RN - 07/29/2022 5:23 AM EST Problem: Patient Care Overview Goal: Plan of Care Review Outcome: Progressing Toward Goal Goal: Individualization & Mutuality Outcome: Progressing Toward Goal Goal: Discharge Needs Assessment Outcome: Progressing Toward Goal Problem: Stroke (Ischemic) (Adult) Goal: Signs and Symptoms of Listed Potential Problems Will be Absent, Minimized or Managed (Stroke) Description: Signs and symptoms of listed potential problems will be absent, minimized or managed by discharge/transition of care (reference Stroke (Ischemic) (Adult) CPG). Outcome: Progressing Toward Goal [facility]01-03-2023 Note* Plan of Care - Lilli Dan PT - 07/28/2022 1:05 PM EST Problem: PT - Balance/Coordination/Neuro Re-Education Goal: Standing Dynamic/Static Balance Description: Pt will perform standing balance tasks for 15 minutes with independence with out an assistive device in order to improve functional mobility and safety with standing tasks. Outcome: Progressing Toward Goal Problem: PT - Mobility Goal: Ambulation Description: Pt will ambulate 200 feet with out an assistive device with independence to improve ability to navigate home environment. Outcome: Progressing Toward Goal Problem: PT - Transfers Goal: Sit <-> Stand Description: Pt will perform sit to/from stand transfers with independence with out an assistive device in order to improve functional mobility and safety. Outcome: Progressing Toward Goal [facility]01-03-2023 Note* Plan of Care - Lilli Dan, PT - 07/28/2022 1:05 PM EST Problem: PT - Balance/Coordination/Neuro Re-Education Goal: Standing Dynamic/Static Balance Description: Pt will perform standing balance tasks for 15 minutes with independence with out an assistive device in order to improve functional mobility and safety with standing tasks. Outcome: Progressing Toward Goal Problem: PT - Mobility Goal: Ambulation Description: Pt will ambulate 200 feet with out an assistive device with independence to improve ability to navigate home environment. Outcome: Progressing Toward Goal Problem: PT - Transfers Goal: Sit <-> Stand Description: Pt will perform sit to/from stand transfers with independence with out an assistive device in order to improve functional mobility and safety. Outcome: Progressing Toward Goal [facility]01-03-2023 Hospital Discharge instructions* Discharge Instructions* Dinesh Blackwell APRN-ZACK - 07/28/2022 11:07 AM EST Please take these discharge instructions to your primary care doctor follow appointment to show them,keep them for your reference and refer to them often for follow up appointments.It is best to write your appointments on a personal calendar so you do not miss them,call if you need to change any appointments please. Education: What are the most common symptoms of stroke? The following are the most common symptoms of stroke. However, each individual may experience symptoms differently. If any of these symptoms are present, call 911 (or your local ambulance service) immediately. Treatment is most effective when started immediately. Symptoms may be sudden and include: -Weakness or numbness of the face, arm, or leg, especially on one side of the body -Confusion or difficulty speaking or understanding -Problems with vision such as dimness or loss of vision in one or both eyes -Dizziness or problems with balance or coordination -Problems with movement or walking -Severe headaches with no other known cause, especially if sudden onset All of the above warning signs may not occur with each stroke. Do not ignore any of the warning signs, even if they go away - take action immediately. The symptoms of stroke may resemble other medical conditions or problems. Always consult your physician for a diagnosis We have provided both written and verbal education to the patient and family regarding ischemic andhemorrhagic strokes. We have discussed the warning signs/symptoms as well as causes of stroke. We have discussed the importance of activating 911/EMS in the event of these symptoms. We have reviewed the patient's personal risk factors as well as education on reducing these risk factors. [facility] Personalized Stroke Treatment Plan My Stroke Type: [] Ischemic Stroke (Blockage of blood flow to the brain) [x] Hemorrhagic Stroke (Bleeding in the brain) [] TIA- Transient Ischemic Attack (mini-stroke) My Risk Factors Include: [x] High Blood Pressure [] Diabetes [] High Cholesterol [] Heart Disease [] Atrial Fibrillation (Irregular Heart Rate) [x] Smoking [] Obesity [] Clotting Disorder [] Alcohol Abuse [] Drug Abuse [] Prior History [] Family History [] Obstructive Sleep Apnea My Follow-Up Treatment Goals: [x] Blood Pressure < 140/90 [x] Stop Smoking Immediately [] LDL < 70 [] HgA1C levels <7% [] Decrease BMI to <25 [x] Take all ordered medications [x] Avoid non-prescription or over the counter medication not cleared by your physician [x] Limit Alcohol use to no more than 1 drink per day for females and 2 drinks per day for males [] Do not drive until cleared [x] Follow up with PCP within a week of discharge to home [x] Follow-up with Neurovascular [x] Follow-up with Occupational,physical and speech therapy if ordered [x] Watch out for depression and seek treatment if needed CONTACTS FOR NEUROVASCULAR SERVICE: - You may call your neurovascular doctors office at [phone], if you have questions between 8:30 am and 4:30 pm. - For off hours or the weekend you may call the office or the hospital sanding line operator at and ask for the stroke resident bone drier to be paged. - If you have any questions or needs, please call Zuri Fernandez RN, stroke j2ee programmer at [phone] Wed-Wed from 01-25 ? Any questions concerning your discharge instructions please call Case Management Office [phone] Patient Stroke Resources: [facility] Stroke Support The [facility] Stroke Support Group is for stroke survivors, friends, andfamily members. Meets every Wednesday from 12:00PM to 1:00PM at [facility] ([facility] [address] [place] [address] Jacque Lopez, at [phone]. If you are outside of the [facility], contact The [employer] at www.strokeassociation.org or 8-774-5-stroke, or for supports groups in your area. Also refer to the Stroke Education booklet you received as part of your stroke education while you were a patient for additional resources Additional Contacts: Evening and Weekend Contacts If you have questions or concerns during evening, weekend, or holiday hours, please call: -[facility] and [facility] sanding line operator at [phone]. -[facility] sanding line operator at [phone] Ask the sanding line operator to page the on-call doctor for Neurovascular service, they were responsible for your care while you were in the hospital. If you having an emergency, call 911. *In the event of an Emergency: If you have a physical or psychiatric emergency call 911 or go to your local emergency department. You should also call your outpatient provider's emergency number. Other reference numbers: [facility] Intake Office at [phone]; [employer] at [phone]; or Suicide Prevention Hotline at 901-287-5480. *Helpful phone numbers: Free Crisis Hotline: 7-899-610-TALK ( ) Suicide Hotline: 210.390.4762 Seniors Suicide Hotline: 918.906.4718 [facility] Youth: 525.617.8453 [facility] [place]: [phone] (free counseling) [facility] Access Hotline: 805-040-XTFZ (266-848-8395) 24-hour crisis text hotline: Text the word 4hope to 617-911 for crisis support. Texting this number is free if you have [employer], [employer]-Mobile, [employer] or Sprint. [facility] Financial Assistance: If you want to learn more about these programs, please call .There are three programsto help you with the cost of your medical care: Medicaid, Hospital Care Assurance Program (HCAP) & jen If you are without Insurance and believe you may qualify for Medicaid/public assistance: The [facility] Department of Job and Family Services can now process hurtado (TANF), food (SNAP) and Medicaid Applications over the phone. Please call [phone] ([phone]) and apply over the phone or apply online at www.[email or web address]. Wednesday-Wednesday 8am-12pm noon. Medication Assistance Programs [employer] members can buy 100+ common prescriptions for FREE, $3 or $6. Annual membership is $36 for individuals and $72 for families (up to 6 people, including pets). Sign up online or enroll at your nearest pharmacy! -[employer], web site can provide a significant number of coupons for medications at a much lower gonzalez. * Medications* RADHA Morrison - 07/28/2022 11:02 AM EST Know your medicines Make sure you know why you are taking each medicine. Make a master list of all your medicines. Write down the medicine names and doctors' names. Includedoses and side effects too. And write down why you take each medicine. Include all prescription tamggyo-zda-jhnfptv medicines, vitamins, and supplements. Keep this list up to date. Take a copy to each doctor visit. Know when you will run out of each medicine. Ask your pharmacist if there are ways the drugstore can remind you to refill your medicines so you do not run out. Write refill reminders on your calendar. Don't wait until you have a few pills left. Ask your pharmacist to plan your refills so that you can peanut picker all your medicines at the same time. This can mean fewer trips to the drugstore. If we have prescribed you a new medication during your stay, please contact with your primary physician for refills * Discharge Instr - Activity* RADHA Morrison - 07/28/2022 11:02 AM EST Activity -- Please follow these instructions: -Advance your activity as you can tolerate - You may walk all you want. You may go up and down the steps. Use the railing for support - It is normal for your energy level and sleep patterns to change after a stroke - Take rest periods during the day as needed - Complete recovery may take several weeks, months, up to a year. Patience is mchugh. * Discharge Instr - Diet* RADHA Morrison - 07/28/2022 11:02 AM EST Current Diet Orders Procedures DIET REGULAR Standing Status: Standing Number of Occurrences: 1 * Discharge Instr - Notify* RADHA Morrison - 07/28/2022 11:02 AM EST Notify Your Doctor if you have any of the following: NEUROLOGICAL CHANGES-- Change in alertness Increased sleepiness Nausea and vomiting New onset of numbness or weakness in arms or legs New problems with your bowels or bladder New or worse problems with balance or walking Seizures, new or worsening UNRELIEVED HEADACHE PAIN-- New or increased pain unrelieved with pain medications Pain associated with nausea and vomiting Pain associated with other symptoms QUESTIONS OR PROBLEMS-- Any questions or problems that you are unsure about Deep Vein Thrombosis Symptoms Call your doctor or nurse right away if you have any signs of blood clots such as -Tender, swollen or reddened areas anywhere in your leg. -Numbness or tingling in your lower leg or calf, or at the top of your leg or groin -Skin on you leg looks pale or blue or feels cold to touch -Chest pain or have trouble breathing -Fever or chills [facility] Discharge instructions* Discharge Instructions* RADHA Benavidez - 07/28/2022 11:07 AM EST Please take these discharge instructions to your primary care doctor follow appointment to show them,keep them for your reference and refer to them often for follow up appointments.It is best to write your appointments on a personal calendar so you do not miss them,call if you need to change any appointments please. Education: What are the most common symptoms of stroke? The following are the most common symptoms of stroke. However, each individual may experience symptoms differently. If any of these symptoms are present, call 911 (or your local ambulance service) immediately. Treatment is most effective when started immediately. Symptoms may be sudden and include: -Weakness or numbness of the face, arm, or leg, especially on one side of the body -Confusion or difficulty speaking or understanding -Problems with vision such as dimness or loss of vision in one or both eyes -Dizziness or problems with balance or coordination -Problems with movement or walking -Severe headaches with no other known cause, especially if sudden onset All of the above warning signs may not occur with each stroke. Do not ignore any of the warning signs, even if they go away - take action immediately. The symptoms of stroke may resemble other medical conditions or problems. Always consult your physician for a diagnosis We have provided both written and verbal education to the patient and family regarding ischemic andhemorrhagic strokes. We have discussed the warning signs/symptoms as well as causes of stroke. We have discussed the importance of activating 911/EMS in the event of these symptoms. We have reviewed the patient's personal risk factors as well as education on reducing these risk factors. [facility] Personalized Stroke Treatment Plan My Stroke Type: [] Ischemic Stroke (Blockage of blood flow to the brain) [x] Hemorrhagic Stroke (Bleeding in the brain) [] TIA- Transient Ischemic Attack (mini-stroke) My Risk Factors Include: [x] High Blood Pressure [] Diabetes [] High Cholesterol [] Heart Disease [] Atrial Fibrillation (Irregular Heart Rate) [x] Smoking [] Obesity [] Clotting Disorder [] Alcohol Abuse [] Drug Abuse [] Prior History [] Family History [] Obstructive Sleep Apnea My Follow-Up Treatment Goals: [x] Blood Pressure < 140/90 [x] Stop Smoking Immediately [] LDL < 70 [] HgA1C levels <7% [] Decrease BMI to <25 [x] Take all ordered medications [x] Avoid non-prescription or over the counter medication not cleared by your physician [x] Limit Alcohol use to no more than 1 drink per day for females and 2 drinks per day for males [] Do not drive until cleared [x] Follow up with PCP within a week of discharge to home [x] Follow-up with Neurovascular [x] Follow-up with Occupational,physical and speech therapy if ordered [x] Watch out for depression and seek treatment if needed CONTACTS FOR NEUROVASCULAR SERVICE: - You may call your neurovascular doctors office at [phone], if you have questions between 8:30 am and 4:30 pm. - For off hours or the weekend you may call the office or the hospital sanding line operator at and ask for the stroke resident bone drier to be paged. - If you have any questions or needs, please call Zuri Fernandez RN, stroke j2ee programmer at [phone] Mon-Fri from 7- ? Any questions concerning your discharge instructions please call Case Management Office [phone] Patient Stroke Resources: [facility] Stroke Support The [facility] Stroke Support Group is for stroke survivors, friends, andfamily members. Meets every Wednesday from 12:00PM to 1:00PM at [facility]), [address] [place] [address] [id number] Jacque Lopez, at [phone]. If you are outside of the [place] area, contact The [place] at www.strokeassociation.org or 6-959-7-stroke, or for supports groups in your area. Also refer to the Stroke Education booklet you received as part of your stroke education while you were a patient for additional resources Additional Contacts: Evening and Weekend Contacts If you have questions or concerns during evening, weekend, or holiday hours, please call: -[facility] and [facility] [employer] sanding line operator at [phone]. -[facility] sanding line operator at [phone] Ask the sanding line operator to page the on-call doctor for Neurovascular service, they were responsible for your care while you were in the hospital. If you having an emergency, call 911. *In the event of an Emergency: If you have a physical or psychiatric emergency call 911 or go to your local emergency department. You should also call your outpatient provider's emergency number. Other reference numbers: [facility] Intake Office at [phone]; [facility] at 919-591-1294; or Suicide Prevention Hotline at 989-048-4796. *Helpful phone numbers: Free Crisis Hotline: 7-406-257-TALK ( ) Suicide Hotline: 982.753.6462 Seniors Suicide Hotline: 918.249.2121 [facility] Youth: 126.318.1633 [facility] [place]: 355.576.4032 (free counseling) [facility] Access Hotline: 338-455-HSNO (943-075-0145) 24-hour crisis text hotline: Text the word 4hope to 181-741 for crisis support. Texting this number is free if you have [employer], [employer]-Mobile, AT&T or Sprint. [facility] Financial Assistance: If you want to learn more about these programs, please call .There are three programsto help you with the cost of your medical care: Medicaid, Hospital Care Assurance Program (HCAP) & jen If you are without Insurance and believe you may qualify for Medicaid/public assistance: The [facility] Department of Job and Family Services can now process hurtado (TANF), food (SNAP) and Medicaid Applications over the phone. Please call [phone] ([phone]) and apply over the phone or apply online at www.[email or web address]. Wednesday-Wednesday 8am-12pm noon. Medication Assistance Programs [employer] members can buy 100+ common prescriptions for FREE, $3 or $6. Annual membership is $36 for individuals and $72 for families (up to 6 people, including pets). Sign up online or enroll at your nearest pharmacy! -[employer], web site can provide a significant number of coupons for medications at a much lower gonzalez. * Medications* RADHA Morrison - 07/28/2022 11:02 AM EST Know your medicines Make sure you know why you are taking each medicine. Make a master list of all your medicines. Write down the medicine names and doctors' names. Includedoses and side effects too. And write down why you take each medicine. Include all prescription gdfrubg-nnh-yvgddyg medicines, vitamins, and supplements. Keep this list up to date. Take a copy to each doctor visit. Know when you will run out of each medicine. Ask your pharmacist if there are ways the drugstore can remind you to refill your medicines so you do not run out. Write refill reminders on your calendar. Don't wait until you have a few pills left. Ask your pharmacist to plan your refills so that you can peanut picker all your medicines at the same time. This can mean fewer trips to the drugstore. If we have prescribed you a new medication during your stay, please contact with your primary physician for refills * Discharge Instr - Activity* RADHA Morrison - 07/28/2022 11:02 AM EST Activity -- Please follow these instructions: -Advance your activity as you can tolerate - You may walk all you want. You may go up and down the steps. Use the railing for support - It is normal for your energy level and sleep patterns to change after a stroke - Take rest periods during the day as needed - Complete recovery may take several weeks, months, up to a year. Patience is mchugh. * Discharge Instr - Diet* RADHA Morrison - 07/28/2022 11:02 AM EST Current Diet Orders Procedures DIET REGULAR Standing Status: Standing Number of Occurrences: 1 * Discharge Instr - Notify* RADHA Morrison - 07/28/2022 11:02 AM EST Notify Your Doctor if you have any of the following: NEUROLOGICAL CHANGES-- Change in alertness Increased sleepiness Nausea and vomiting New onset of numbness or weakness in arms or legs New problems with your bowels or bladder New or worse problems with balance or walking Seizures, new or worsening UNRELIEVED HEADACHE PAIN-- New or increased pain unrelieved with pain medications Pain associated with nausea and vomiting Pain associated with other symptoms QUESTIONS OR PROBLEMS-- Any questions or problems that you are unsure about Deep Vein Thrombosis Symptoms Call your doctor or nurse right away if you have any signs of blood clots such as -Tender, swollen or reddened areas anywhere in your leg. 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 Outcome: Ongoing Goal: Problem Solving Goal 1 Description: Patient will complete basic problem solving tasks in at least 3/5 of opportunities in their immediate environment to support self-advocacy and independence, given min cues across 2 consecutive sessions by discharge. Outcome: Ongoing Goal: Meticognition Goal 1 Description: Patient will identify at least 3 deficits related to medical condition and how deficits will impact ability to return home with min cues across 2-3 sessions to improve insight and safety. Outcome: Ongoing Goal: Orientation Goal Description: Patient will recall/implement use of orientation strategies, given min -no cues, to demonstrate improved awareness and insight as measured by achieving a 27/30 on The Orientation Log, across 1-2 sessions. Outcome: Ongoing [facility]01-03-2023 Note* Plan of Care - MIGUEL A Krueger - 07/28/2022 9:51 AM EST Problem: MICROBIOLOGICAL LAB TECHNICIAN - Cognition Goal: Memory Goal 1 Description: Patient will utilize compensatory memory strategies to teach back at least 3 facts related to their hospitalization/POC across a 5 minute delay across at least 2 consecutive sessions to support generalization of strategy use and pt's self-advocacy, min cues by discharge. Outcome: Ongoing Goal: Problem Solving Goal 1 Description: Patient will complete basic problem solving tasks in at least 3/5 of opportunities in their immediate environment to support self-advocacy and independence, given min cues across 2 consecutive sessions by discharge. Outcome: Ongoing Goal: Meticognition Goal 1 Description: Patient will identify at least 3 deficits related to medical condition and how deficits will impact ability to return home with min cues across 2-3 sessions to improve insight and safety. Outcome: Ongoing Goal: Orientation Goal Description: Patient will recall/implement use of orientation strategies, given min -no cues, to demonstrate improved awareness and insight as measured by achieving a 27/30 on The Orientation Log, across 1-2 sessions. Outcome: Ongoing [facility]01-01-2023 Note* Plan of Care - Ana Maria Steele RN - 07/26/2022 9:33 PM EST Problem: Patient Care Overview Goal: Plan of Care Review Outcome: Ongoing Goal: Individualization & Mutuality Outcome: Ongoing Goal: Discharge Needs Assessment Outcome: Ongoing Goal: Interdisciplinary Rounds/Family Conf Outcome: Ongoing Problem: Stroke (Ischemic) (Adult) Goal: Signs and Symptoms of Listed Potential Problems Will be Absent, Minimized or Managed (Stroke) Description: Signs and symptoms of listed potential problems will be absent, minimized or managed by discharge/transition of care (reference Stroke (Ischemic) (Adult) CPG). Outcome: Ongoing [facility]01-01-2023 Note* Plan of Care - Ana Maria Steele RN - 07/26/2022 9:33 PM EST Problem: Patient Care Overview Goal: Plan of Care Review Outcome: Ongoing Goal: Individualization & Mutuality Outcome: Ongoing Goal: Discharge Needs Assessment Outcome: Ongoing Goal: Interdisciplinary Rounds/Family Conf Outcome: Ongoing Problem: Stroke (Ischemic) (Adult) Goal: Signs and Symptoms of Listed Potential Problems Will be Absent, Minimized or Managed (Stroke) Description: Signs and symptoms of listed potential problems will be absent, minimized or managed by discharge/transition of care (reference Stroke (Ischemic) (Adult) CPG). Outcome: Ongoing [facility]01-01-2023 Note* Plan of Care - Divina Larkin OT - 07/26/2022 5:18 PM EST Problem: OT - Dressing Goal: Upper Body Dressing Description: Pt will complete UE dressing task seated in chair with minimal assistance for improvedability to complete self-care activities. Outcome: Ongoing Problem: OT - ADLs Goal: Grooming Description: Pt will complete grooming in standing with contact guard assistance for improved ability to safely complete ADLs. Outcome: Ongoing Goal: Feeding Description: Pt will perform self-feeding task while seated with modified independence to promote success and safety during daily routine. Outcome: Ongoing Problem: OT - Balance Goal: Balance - Standing Description: Pt will perform 5 minutes of functional ADL task in standing with minimal assistance and balance level of minimum assist to promote safety and improved balance required for self-care activities. Outcome: Ongoing [facility]01-01-2023 Note* Plan of Care - Divina Larkin OT - 07/26/2022 5:18 PM EST Problem: OT - Dressing Goal: Upper Body Dressing Description: Pt will complete UE dressing task seated in chair with minimal assistance for improvedability to complete self-care activities. Outcome: Ongoing Problem: OT - ADLs Goal: Grooming Description: Pt will complete grooming in standing with contact guard assistance for improved ability to safely complete ADLs. Outcome: Ongoing Goal: Feeding Description: Pt will perform self-feeding task while seated with modified independence to promote success and safety during daily routine. Outcome: Ongoing Problem: OT - Balance Goal: Balance - Standing Description: Pt will perform 5 minutes of functional ADL task in standing with minimal assistance and balance level of minimum assist to promote safety and improved balance required for self-care activities. Outcome: Ongoing [facility]01-01-2023 Note* Plan of Care - Minerva Dwain PT - 07/26/2022 11:17 AM EST Problem: PT - Balance/Coordination/Neuro Re-Education Goal: Sitting Dynamic/Static Balance Description: Pt will perform seated balance tasks for 15 minutes with independence UE support levelto improve safety with seated tasks. Outcome: Ongoing Goal: Standing Dynamic/Static Balance Description: Pt will perform standing balance tasks for 15 minutes with independence with out an assistive device in order to improve functional mobility and safety with standing tasks. Outcome: Ongoing Problem: PT - Mobility Goal: Ambulation Description: Pt will ambulate 200 feet with out an assistive device with independence to improve ability to navigate home environment. Outcome: Ongoing Goal: Stairs Description: Pt will ascend/descend 12 stairs with out railings with independence with out an assistive device to improve ability to perform functional mobility necessary in recommended discharge environment. Outcome: Ongoing Problem: PT - Transfers Goal: Sit <-> Stand Description: Pt will perform sit to/from stand transfers with independence with out an assistive device in order to improve functional mobility and safety. Outcome: Ongoing Goal: Strength/ROM Description: Pt will perform 2 sets of 15 repetitions of lower bilateral extremity exercises with independence in order to improve strength, maintain ROM, necessary for functional mobility. Outcome: Ongoing [facility]01-01-2023 Note* Plan of Care - Minerva Prakash PT - 07/26/2022 11:17 AM EST Problem: PT - Balance/Coordination/Neuro Re-Education Goal: Sitting Dynamic/Static Balance Description: Pt will perform seated balance tasks for 15 minutes with independence UE support levelto improve safety with seated tasks. Outcome: Ongoing Goal: Standing Dynamic/Static Balance Description: Pt will perform standing balance tasks for 15 minutes with independence with out an assistive device in order to improve functional mobility and safety with standing tasks. Outcome: Ongoing Problem: PT - Mobility Goal: Ambulation Description: Pt will ambulate 200 feet with out an assistive device with independence to improve ability to navigate home environment. Outcome: Ongoing Goal: Stairs Description: Pt will ascend/descend 12 stairs with out railings with independence with out an assistive device to improve ability to perform functional mobility necessary in recommended discharge environment. Outcome: Ongoing Problem: PT - Transfers Goal: Sit <-> Stand Description: Pt will perform sit to/from stand transfers with independence with out an assistive device in order to improve functional mobility and safety. Outcome: Ongoing Goal: Strength/ROM Description: Pt will perform 2 sets of 15 repetitions of lower bilateral extremity exercises with independence in order to improve strength, maintain ROM, necessary for functional mobility. Outcome: Ongoing [facility]01-01-2023 Note* Plan of Care - Divina Jiang RN - 07/26/2022 10:00 AM EST Problem: Patient Care Overview Goal: Plan of Care Review Outcome: Ongoing Goal: Individualization & Mutuality Outcome: Ongoing Goal: Discharge Needs Assessment Outcome: Ongoing Goal: Interdisciplinary Rounds/Family Conf Outcome: Ongoing [facility]01-01-2023 Note* Plan of Care - Divina Jiang RN - 07/26/2022 10:00 AM EST Problem: Patient Care Overview Goal: Plan of Care Review Outcome: Ongoing Goal: Individualization & Mutuality Outcome: Ongoing Goal: Discharge Needs Assessment Outcome: Ongoing Goal: Interdisciplinary Rounds/Family Conf Outcome: Ongoing [facility]12-31-2022 Consult note* Maria Fernanda Corona MD - 07/25/2022 4:38 PM ESTAssociated Order(s): IP CONSULT TO SURGERY - UROLOGY Duplicate consult order from transfer of patient from [facility] to . See full consult note on 07/14/22. In brief: Love Skinner is a 67 y.o. male w/ PMHx tobacco use, p/w intraventricular hemorrhage, for whom Urology is c/s re: possible acute on chronic urinary retention, traumatic toledo placement w/ likely false passage on 07/14/22. Placement of 18F hoopa tip catheter over a wire was done on 07/14/22 . Trial of void was attempted on 07/22/22 but failed. Urology replaced catheter with 18F coude without issues and recommend RN to trial if void trial failed again. Today, re-engaged because patient had toledo removed and failed trial of void again. RN was able to place 18F coude and states draining well, clear yellow urine. > Recommend to leave toledo in for now. > Can trial trial of void prior to discharge. Instructions: Trial of void: Obtain PVR x 2. Successful void trial is typically voided volume greater than PVR for for two separate voids, PVR < 150cc, or decreasing serial PVRs. If voided amount is less than PVR, repeat a third time to ensure not increasing. If patient does not pass void trial closer to discharge, please replace catheter and page Urology resident bone drier so we can assist withmaking outpatient appointment. Thank you, Maria Fernanda Corona MD Urology Resident, PGY-2 07/25/2022 4:45 PM [facility] Work Phone: [phone] Consult note* Maria Fernanda Corona MD - 07/25/2022 4:38 PM ESTAssociated Order(s): IP CONSULT TO SURGERY - UROLOGY Duplicate consult order from transfer of patient from [facility] to . See full consult note on 07/14/22. In brief: Love Skinner is a 67 y.o. male w/ PMHx tobacco use, p/w intraventricular hemorrhage, for whom Urology is c/s re: possible acute on chronic urinary retention, traumatic toledo placement w/ likely false passage on 07/14/22. Placement of 18F hoopa tip catheter over a wire was done on 07/14/22 . Trial of void was attempted on 07/22/22 but failed. Urology replaced catheter with 18F coude without issues and recommend RN to trial if void trial failed again. Today, re-engaged because patient had toledo removed and failed trial of void again. RN was able to place 18F coude and states draining well, clear yellow urine. > Recommend to leave toledo in for now. > Can trial trial of void prior to discharge. Instructions: Trial of void: Obtain PVR x 2. Successful void trial is typically voided volume greater than PVR for for two separate voids, PVR < 150cc, or decreasing serial PVRs. If voided amount is less than PVR, repeat a third time to ensure not increasing. If patient does not pass void trial closer to discharge, please replace catheter and page Urology resident bone drier so we can assist withmaking outpatient appointment. Thank you, Maria Fernanda Corona MD Urology Resident, PGY-2 07/25/2022 4:45 PM documented [facility] Consult note* Maria Fernanda Corona MD - 07/25/2022 4:38 PM ESTAssociated Order(s): IP CONSULT TO SURGERY - UROLOGY Duplicate consult order from transfer of patient from [facility] to . See full consult note on 07/14/22. In brief: Love Skinner is a 67 y.o. male w/ PMHx tobacco use, p/w intraventricular hemorrhage, for whom Urology is c/s re: possible acute on chronic urinary retention, traumatic toledo placement w/ likely false passage on 07/14/22. Placement of 18F hoopa tip catheter over a wire was done on 07/14/22 . Trial of void was attempted on 07/22/22 but failed. Urology replaced catheter with 18F coude without issues and recommend RN to trial if void trial failed again. Today, re-engaged because patient had toledo removed and failed trial of void again. RN was able to place 18F coude and states draining well, clear yellow urine. > Recommend to leave toledo in for now. > Can trial trial of void prior to discharge. Instructions: Trial of void: Obtain PVR x 2. Successful void trial is typically voided volume greater than PVR for for two separate voids, PVR < 150cc, or decreasing serial PVRs. If voided amount is less than PVR, repeat a third time to ensure not increasing. If patient does not pass void trial closer to discharge, please replace catheter and page Urology resident bone drier so we can assist withmaking outpatient appointment. Thank you, Maria Fernanda Corona MD Urology Resident, PGY-2 07/25/2022 4:45 PM documented in this encounter[facility]* Certification - Dread Denney MD - 07/25/2022 3:54 PM EST I certify that this patient requires inpatient services at this time. I anticipate the expected length of stay will include at least two midnights. Inpatient services are due to the following medicalconcerns bleeding. Plans for post hospitalization care will be discharge to [facility]12-31-2022 Note* Certification - Dread Denney MD - 07/25/2022 3:54 PM EST I certify that this patient requires inpatient services at this time. I anticipate the expected length of stay will include at least two midnights. Inpatient services are due to the following medicalconcerns bleeding. Plans for post hospitalization care will be discharge to [facility]12-31-2022 Note* Nursing Notes - Dolores Horvath RN - 07/25/2022 2:51 PM EST Report called to [facility] charge nurse transporting patient. Pt wearing dentures at this time. Socks and denture cream in tub with toiletries. [facility]12-31-2022 Note* Nursing Notes - Dolores Horvath RN - 07/25/2022 2:51 PM EST Report called to [facility] charge nurse transporting patient. Pt wearing dentures at this time. Socks and denture cream in tub with toiletries. [facility]12-31-2022 Miscellaneous Notes* Nursing Notes - Dolores Horvath RN - 07/25/2022 2:51 PM EST Report called to [facility] charge nurse transporting patient. Pt wearing dentures at this time. Socks and denture cream in tub with toiletries. * Nursing Notes - Dolores Horvath RN - 07/25/2022 2:13 PM EST RN spoke with patient's this morning, she called [facility] a rehab facility her father was at and it is close to their home. She said she is interested in this location for him because it is so close to their home. Facility number is [phone], address [address] She just wanted me to pass along this information to the team for his discharge planning. * Plan of Care - Dolores Horvath RN - 07/25/2022 2:02 PM EST Problem: Patient Care Overview Goal: Interdisciplinary Rounds/Family Conf Outcome: Met This Shift Problem: Patient Care Overview Goal: Plan of Care Review Outcome: Ongoing Goal: Individualization & Mutuality Outcome: Ongoing Goal: Discharge Needs Assessment Outcome: Ongoing Problem: Stroke (Hemorrhagic) (Adult) Goal: Signs and Symptoms of Listed Potential Problems Will be Absent, Minimized or Managed (Stroke) Description: Signs and symptoms of listed potential problems will be absent, minimized or managed by discharge/transition of care (reference Stroke (Hemorrhagic) (Adult) CPG). Outcome: Ongoing * Plan of Care - BETH Alcantara - 07/24/2022 9:48 AM EST Inpatient rehab has been recommended. However, patient does not have insurance and could only go torehab if he is able to pay out of pocket. Lata [employer] Representative * Plan of Care - Patrice Cash RN - 07/24/2022 6:57 AM EST Was sitter at bedside during evening. Neuro assessment unchanged. Restless in beginning of evening but did become more calm. Walked x4 in hallway. [place] in place. Problem: Patient Care Overview Goal: Plan of Care Review Outcome: Met This Shift Goal: Individualization & Mutuality Outcome: Met This Shift Problem: Stroke (Hemorrhagic) (Adult) Goal: Signs and Symptoms of Listed Potential Problems Will be Absent, Minimized or Managed (Stroke) Description: Signs and symptoms of listed potential problems will be absent, minimized or managed by discharge/transition of care (reference Stroke (Hemorrhagic) (Adult) CPG). Outcome: Met This Shift Problem: Confusion, Acute (Adult) Goal: Identify Related Risk Factors and Signs and Symptoms Description: Related risk factors and signs and symptoms are identified upon initiation of Human Response Clinical Practice Guideline (CPG) Outcome: Met This Shift Problem: Fall/Trauma/Injury Risk (Adult) Goal: Fall/Trauma/Injury Risk: Absence of Trauma/Injury/Falls Description: Patient will demonstrate the desired outcomes. Outcome: Met This Shift Problem: Urine Elimination Impaired (Adult) Goal: Identify Related Risk Factors and Signs and Symptoms Description: Related risk factors and signs and symptoms are identified upon initiation of Human Response Clinical Practice Guideline (CPG) Outcome: Met This Shift Problem: Patient Care Overview Goal: Discharge Needs Assessment Outcome: Ongoing Goal: Interdisciplinary Rounds/Family Conf Outcome: Ongoing Problem: Confusion, Acute (Adult) Goal: Cognitive/Functional Impairments Minimized Description: Patient will demonstrate the desired outcomes by discharge/transition of care. Outcome: Ongoing Goal: Safety Description: Patient will demonstrate the desired outcomes by discharge/transition of care. Outcome: Ongoing Problem: Urine Elimination Impaired (Adult) Goal: Effective Urinary Elimination Description: Patient will demonstrate the desired outcomes by discharge/transition of care. Outcome: Ongoing Goal: Effective Containment of Urine Description: Patient will demonstrate the desired outcomes by discharge/transition of care. Outcome: Ongoing Goal: Reduced Incontinence Episodes Description: Patient will demonstrate the desired outcomes by discharge/transition of care. Outcome: Ongoing * Plan of Care - Cathleen Manuel OT - 07/23/2022 2:18 PM EST Problem: OT - Cognition Goal: Cognition simple ADL Description: Pt will demonstrate improved cognition, completing simple ADL task for 10 minutes withno more than 2 cues required to maintain attention, for improved safety and success at discharge destination. Outcome: Ongoing Problem: OT - Balance Goal: Balance - Standing Description: Pt will perform 10 minutes of functional ADL task in standing with supervision and no major LOB to promote safety and improved balance required for self-care activities. Outcome: Ongoing * Plan of Care - Lisa Balbuena PT - 07/23/2022 11:49 AM EST Problem: PT - Balance/Coordination/Neuro Re-Education Goal: Standing Dynamic/Static Balance Description: Pt will perform standing balance tasks for 15 minutes with supervision with out an assistive device in order to improve functional mobility and safety with standing tasks. Outcome: Ongoing Problem: PT - Transfers Goal: Supine <-> Sit Description: Pt will perform bed mobility with flat bed & no rail with independence in order toimprove functional mobility and safety. Outcome: Ongoing Goal: Sit <-> Stand Description: Pt will perform sit to/from stand transfers with supervision with out an assistive device in order to improve functional mobility and safety. Outcome: Ongoing Lisa Balbuena PT, DPT License #: [id number] Pager #: [phone] * Plan of Care - Mercy Segal RN - 07/23/2022 11:13 AM EST Patient remains Alert to self only with year and month periodically known. Attempted to stand patient to walk in shi and patient unable to stand more than 10 seconds without heavy assist from nursing staff. Will attempt later. Patient remains agitated toward staff with redirection possible. Problem: Patient Care Overview Goal: Plan of Care Review Outcome: Ongoing Goal: Individualization & Mutuality Outcome: Ongoing Goal: Discharge Needs Assessment Outcome: Ongoing Problem: Confusion, Acute (Adult) Goal: Identify Related Risk Factors and Signs and Symptoms Description: Related risk factors and signs and symptoms are identified upon initiation of Human Response Clinical Practice Guideline (CPG) Outcome: Ongoing Goal: Cognitive/Functional Impairments Minimized Description: Patient will demonstrate the desired outcomes by discharge/transition of care. Outcome: Ongoing * Nursing Notes - Liz Landin RN - 07/22/2022 6:58 PM EST Patient's spouse requested for patient to be transferred to a hospital close to their home. 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 Sitter at bedside. Patient ambulated in the hallway using walker and gait belt with significant unsteady gait and much weaker as compared to the day before. Toledo removed at 0830 per order with confirmation from primary team. Patient unable to void after 3attempts using restroom and urinal - bladder scanner showed >230ml urine retention. Urology was paged for recommendation since this RN is not comfortable to straight cath patient due to recent trauma from toledo cath placement. Per Saroj Sheriff MD, straight cath is not recommended and MD would stop by to place a new one with urojet. Primary team is aware of this event. Problem: Patient Care Overview Goal: Plan of Care Review 07/22/2022 1634 by Liz Landin RN Outcome: Ongoing 07/22/2022 1634 by Liz Landin RN Outcome: Ongoing Problem: Patient Care Overview Goal: Individualization & Mutuality 07/22/2022 1634 by Liz Landin RN Outcome: Ongoing 07/22/2022 1634 by Liz Landin RN Outcome: Ongoing Problem: Fall/Trauma/Injury Risk (Adult) Goal: Fall/Trauma/Injury Risk: Absence of Trauma/Injury/Falls Description: Patient will demonstrate the desired outcomes. Outcome: Ongoing Goal: Knowledge of risk factors/behavior modification Description: Knowledge of risk factors/behavior modification for fall/injury prevention Outcome: Ongoing Problem: Confusion, Acute (Adult) Goal: Identify Related Risk Factors and Signs and Symptoms Description: Related risk factors and signs and symptoms are identified upon initiation of Human Response Clinical Practice Guideline (CPG) Outcome: Ongoing Goal: Cognitive/Functional Impairments Minimized Description: Patient will demonstrate the desired outcomes by discharge/transition of care. Outcome: Ongoing Goal: Safety Description: Patient will demonstrate the desired outcomes by discharge/transition of care. Outcome: Ongoing Problem: Urine Elimination Impaired (Adult) Goal: Identify Related Risk Factors and Signs and Symptoms Description: Related risk factors and signs and symptoms are identified upon initiation of Human Response Clinical Practice Guideline (CPG) 07/22/2022 1634 by Liz Landin RN Outcome: Ongoing 07/22/2022 1634 by Liz Landin RN Outcome: Ongoing Goal: Effective Urinary Elimination Description: Patient will demonstrate the desired outcomes by discharge/transition of care. 07/22/2022 1634 by Liz Landin RN Outcome: Ongoing 07/22/2022 1634 by Liz Landin RN Outcome: Ongoing Goal: Effective Containment of Urine Description: Patient will demonstrate the desired outcomes by discharge/transition of care. 07/22/2022 1634 by Liz Landin RN Outcome: Ongoing 07/22/2022 1634 by Liz Landin RN Outcome: Ongoing Goal: Reduced Incontinence Episodes Description: Patient will demonstrate the desired outcomes by discharge/transition of care. 07/22/2022 1634 by Liz Landin RN Outcome: Ongoing 07/22/2022 1634 by Liz Landin RN Outcome: Ongoing * Plan of Care - Toribio Sheriff MD - 07/22/2022 4:27 PM EST I was notified by Mr. Skinner's primary nurse that his catheter was removed this morning and he had not voided in >7 hours despite feeling the urge and trying, bladder scan >230. Toledo Placement Under sterile technique, an 18Fr coude toledo catheter was placed with the use of a Urojet. During insertion of toledo there was no resistance met. There was positive return of yellow urine (after about 1 min of waiting) before 10 mL of sterile water was used to inflate the toledo balloon. If required in the future, nursing should replace catheter with 18 Fr coude using good technique: Ensure patient is lying flat on the bed, and at a good height for the person placing catheter. Instill urojet directly into urethra, pull penis on stretch towards ceiling, insert catheter with coude tip pointing up to ceiling, and hub catheter all the way in the penis. Wait for urine return before inflating balloon. - Would continue flomax. - Can try another void trial in 1-2 days. Would remove catheter closer to 0600 and fill bladder prior to removing per instructions below to give a head start. *Please page urology resident or urology consult resident bone drier in [employer] if questions. The author of this note does not necessarily reflect the individual bone drier.* Toribio Sheriff MD Urology, PGY-3 #[id number] Instructions for filling the bladder with normal saline under gravity: (1) Get a Harley Syringe. (2) Take the plunger out of the harley syringe, and throw the plunger away. You are now left with an open-ended Harley syringe. You will use this as a funnel to connect to the end of the catheter. (3) Lie the patient flat in bed. (4) Remove the drain bag from the toledo catheter. (5) Attach the open ended harley (i.e. your funnel) to the end of the toledo catheter. (6) Hold the catheter and the funnel straight up in the air. (7) Slowly poor normal saline into the open end of the harley (i.e. your funnel) while still holding the toledo and funnel straight up in the air. (8) Allow the normal saline to drain into the bladder under gravity. As the bladder begins to get full, the rate at which the saline is draining from the harley will decrease and eventually stop. There is no specific amount with which to fill the bladder. The bladder is usually full when the salinestops draining from the funnel under gravity or the patient states he is full. This is typically about 200-300ml. (9) remove catheter after filling the bladder, leaving the saline behind. - When patient voids, please record voided volume and bladder scan for post-void residual (PVR). - Successful void trial is voided volume greater than PVR for two separate voids (over 150cc), absolute PVR < 150cc, or at least 3 decreasing serial PVRs. * Plan of Care - Lata Rider RN - 07/22/2022 5:02 AM EST Problem: Confusion, Acute (Adult) Goal: Identify Related Risk Factors and Signs and Symptoms Description: Related risk factors and signs and symptoms are identified upon initiation of Human Response Clinical Practice Guideline (CPG) Outcome: Ongoing Flowsheets (Taken 07/22/2022 0453) Related Risk Factors (Acute Confusion): neurological impairment Signs and Symptoms (Acute Confusion): memory disturbed Note: Pt has spent the entire shift between a RASS of +1 to +3, getting out of the bed frequently, accusing staff of poisoning him, performing surgery on him against his will, and drugging him up. While he's usually oriented to the month and year, he has no sense of scope or situation, and sometimes thinks he's been here for 3 weeks, many months, or even years, and shows clear delirium. He was cursing at his on the phone at the start of the shift for refusing to take him home tonight AMA. He perseverates in conversation on the topics of chlorine bleach and room temperature, and while he can be reoriented, he will rapidly return to talking about one or the other. The room is always way too hot or freezing, and even within a two minute span he flips his claim. Even when staff is not engaging him, and trying to get him to settle and rest, he talks to himself almost without cessation, and tosses and turns in the bed continuously. With the exception of a briefly present headacheafter his SBP > 180, he states he has no pain. He's required multiple doses of interventional BP meds, in addition to the physician increasing hisoral meds and making a dose available this shift. He warranted a sitter a few hours into the shift,and has kept her very busy. The doctor just ordered a one-time dose of half a seroquel to see if itimproves his mentation. Close monitoring ongoing by all. * Plan of Care - Cathleen Manuel OT - 07/21/2022 9:35 AM EST Problem: OT - Balance Goal: Balance - Standing Description: Pt will perform 10 minutes of functional ADL task in standing with supervision and no major LOB to promote safety and improved balance required for self-care activities. Outcome: Ongoing Problem: OT - Endurance Goal: Endurance Functional Mobilty Around Home Description: Pt will complete distance needed for limited community mobility with supervision and good balance. Outcome: Ongoing Problem: OT - Cognition Goal: Cognition simple ADL Description: Pt will demonstrate improved cognition, completing simple ADL task for 10 minutes withno more than 2 cues required to maintain attention, for improved safety and success at discharge destination. Outcome: Progressing Toward Goal * Plan of Care - Lisa Balbuena PT - 07/21/2022 8:35 AM EST Problem: PT - Balance/Coordination/Neuro Re-Education Goal: Standing Dynamic/Static Balance Description: Pt will perform standing balance tasks for 15 minutes with supervision with out an assistive device in order to improve functional mobility and safety with standing tasks. Outcome: Ongoing Problem: PT - Mobility Goal: Ambulation Description: Pt will ambulate 500 feet with out an assistive device with supervision to improve ability to navigate home environment. Outcome: Ongoing Problem: PT - Transfers Goal: Supine <-> Sit Description: Pt will perform bed mobility with flat bed & no rail with independence in order toimprove functional mobility and safety. Outcome: Ongoing Goal: Sit <-> Stand Description: Pt will perform sit to/from stand transfers with supervision with out an assistive device in order to improve functional mobility and safety. Outcome: Ongoing Lisa Balbuena PT, DPT License #: [id number] Pager #: [phone] * Plan of Care - Ever Antonio RN - 07/21/2022 7:28 AM EST No acute events overnight. Remains on RA. Is A&O to self, sometimes confused regarding time, place, and situation but mentation seems to be getting better with time. Pt is eager to get up and walk and wants to be DC ann-marie. Problem: Patient Care Overview Goal: Plan of Care Review Outcome: Ongoing Goal: Individualization & Mutuality Outcome: Ongoing Goal: Discharge Needs Assessment Outcome: Ongoing Goal: Interdisciplinary Rounds/Family Conf Outcome: Ongoing Problem: Stroke (Hemorrhagic) (Adult) Goal: Signs and Symptoms of Listed Potential Problems Will be Absent, Minimized or Managed (Stroke) Description: Signs and symptoms of listed potential problems will be absent, minimized or managed by discharge/transition of care (reference Stroke (Hemorrhagic) (Adult) CPG). Outcome: Ongoing Problem: Confusion, Acute (Adult) Goal: Identify Related Risk Factors and Signs and Symptoms Description: Related risk factors and signs and symptoms are identified upon initiation of Human Response Clinical Practice Guideline (CPG) Outcome: Ongoing Goal: Cognitive/Functional Impairments Minimized Description: Patient will demonstrate the desired outcomes by discharge/transition of care. Outcome: Ongoing Goal: Safety Description: Patient will demonstrate the desired outcomes by discharge/transition of care. Outcome: Ongoing Problem: Fall/Trauma/Injury Risk (Adult) Goal: Fall/Trauma/Injury Risk: Absence of Trauma/Injury/Falls Description: Patient will demonstrate the desired outcomes. Outcome: Ongoing * Plan of Care - Zaida Leo RN - 07/19/2022 6:27 PM EST Plan of care reviewed with patient. Problem: Patient Care Overview Goal: Plan of Care Review Outcome: Ongoing Goal: Individualization & Mutuality Outcome: Ongoing Goal: Discharge Needs Assessment Outcome: Ongoing Goal: Interdisciplinary Rounds/Family Conf Outcome: Ongoing Problem: Stroke (Hemorrhagic) (Adult) Goal: Signs and Symptoms of Listed Potential Problems Will be Absent, Minimized or Managed (Stroke) Description: Signs and symptoms of listed potential problems will be absent, minimized or managed by discharge/transition of care (reference Stroke (Hemorrhagic) (Adult) CPG). Outcome: Ongoing * Plan of Care - Megan Perea MD - 07/19/2022 1:59 PM EST BRIEF NEUROVASCULAR NOTE Called to bedside for mental status change. Was more alert this morning and now more somnolent requiring continuous stimulation to maintain wakeful state. Went to bedside and NIHSS was 13 for encephalopathy, no focal deficits. Able to tell me he does not have headache. Reviewed medications and onlyadded medication was aspirin. Had fever earlier on and UA with possible UTI. CXR appears clear, BCX drawn. He is on keflex for UTI. VSS stable now. 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 Patient with hydrocephalus noted 07/16, resolved without intervention. No further neurosurgical intervention at this time. - Please have patient follow up with Dr. Ly in [address] head to discuss possible revascularization - Neurosurgery will sign-off. Please call with questions. 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 Outcome: Ongoing Goal: Problem Solving Goal 1 Description: Patient will complete basic problem solving tasks in at least 3/5 of opportunities in their immediate environment to support self-advocacy and independence, given min cues across 2 consecutive sessions by discharge. Outcome: Ongoing Goal: Meticognition Goal 1 Description: Patient will identify at least 3 deficits related to medical condition and how deficits will impact ability to return home with min cues across 2-3 sessions to improve insight and safety. Outcome: Ongoing Goal: Orientation Goal Description: Patient will recall/implement use of orientation strategies, given min -no cues, to demonstrate improved awareness and insight as measured by achieving a 27/30 on The Orientation Log, across 1-2 sessions. Outcome: Ongoing * Significant Event - Razia Andrade APRN-ZACK - 07/16/2022 6:05 PM EST Notified by RN that pt with mental status change. This MARKETING SALES SUPERVISOR to bedside. Pt nonverbal, no commands butis moving all extremities purposefully. Gaze midline but will not track. Concern for worsening hydrocephalus vs bleed -stat CTH obtained, reviewed with worsening hydrocephalus noted. Dr Ram called and made aware of pt exam and CTH changes with request for EVD. Dr. Marquez made aware and agrees with this plan. -Family at bedside and updated regarding events and need for evd 184 Dr. Ram to bedside. During his exam, pt awoke. FC x4, drowsy but able to state name. Given improved exam, NS plans to hold on EVD at this time and continue with close monitoring. Family agrees to EVD if needed overnight. Plan CTH in am Added q [address] Marquez updated on above and agrees with this plan. Report to night team who will cont to monitor pt closely Razia Andrade CNP * Plan of Care - Dory Venegas RN - 07/16/2022 5:25 PM EST Problem: Patient Care Overview Goal: Plan of Care Review Outcome: Ongoing Flowsheets (Taken 07/16/2022 1724) Outcome Summary: Marco remains in the ICU for close monitoring of neuro status, pt stable this shift Marco has good PO intake, MIVF stopped today SBP goal <140, pt needing PRN medications to remain within goal Goal: Individualization & Mutuality Outcome: Ongoing Goal: Discharge Needs Assessment Outcome: Ongoing Goal: Interdisciplinary Rounds/Family Conf Outcome: Ongoing Problem: Stroke (Hemorrhagic) (Adult) Goal: Signs and Symptoms of Listed Potential Problems Will be Absent, Minimized or Managed (Stroke) Description: Signs and symptoms of listed potential problems will be absent, minimized or managed by discharge/transition of care (reference Stroke (Hemorrhagic) (Adult) CPG). Outcome: Ongoing Problem: Confusion, Acute (Adult) Goal: Identify Related Risk Factors and Signs and Symptoms Description: Related risk factors and signs and symptoms are identified upon initiation of Human Response Clinical Practice Guideline (CPG) Outcome: Ongoing Goal: Cognitive/Functional Impairments Minimized Description: Patient will demonstrate the desired outcomes by discharge/transition of care. Outcome: Ongoing Goal: Safety Description: Patient will demonstrate the desired outcomes by discharge/transition of care. Outcome: Ongoing Problem: Fall/Trauma/Injury Risk (Adult) Goal: Fall/Trauma/Injury Risk: Absence of Trauma/Injury/Falls Description: Patient will demonstrate the desired outcomes. Outcome: Ongoing * Plan of Care - Gumaro Pastrana MD - 07/16/2022 3:18 PM EST Neurosurgery Update: Consulted for bilateral IVH. Imaging reviewed which revealed stable ventricles and hemorrhage. No neurosurgical intervention at this time. - Please have patient follow up with Dr. Ly in 4 weeks to discuss elective revascularization - Neurosurgery will sign-off. Please call with questions. Gumaro Pastrana MD, Neurosurgery NS2 ([phone]) * Plan of Care - Tejas Segal RN - 07/14/2022 10:11 PM EST Problem: Patient Care Overview Goal: Plan of Care Review Outcome: Ongoing Goal: Individualization & Mutuality Outcome: Ongoing Goal: Discharge Needs Assessment Outcome: Ongoing Goal: Interdisciplinary Rounds/Family Conf Outcome: Ongoing Problem: Stroke (Hemorrhagic) (Adult) Goal: Signs and Symptoms of Listed Potential Problems Will be Absent, Minimized or Managed (Stroke) Description: Signs and symptoms of listed potential problems will be absent, minimized or managed by discharge/transition of care (reference Stroke (Hemorrhagic) (Adult) CPG). Outcome: Ongoing * Plan of Care - Sherley Carpio RN - 07/14/2022 4:31 PM EST Multidisciplinary rounds complete. Mr. Skinner has been alert and oriented to self. He passed his sherry swallow. Pt/OT had him up and walking the shi. He went to OR for cerebral angiogram. Post procedure check tool was completed after he returned from the OR. Problem: Patient Care Overview Goal: Plan of Care Review Outcome: Ongoing Goal: Individualization & Mutuality Outcome: Ongoing Goal: Discharge Needs Assessment Outcome: Ongoing Goal: Interdisciplinary Rounds/Family Conf Outcome: Ongoing Problem: Stroke (Hemorrhagic) (Adult) Goal: Signs and Symptoms of Listed Potential Problems Will be Absent, Minimized or Managed (Stroke) Description: Signs and symptoms of listed potential problems will be absent, minimized or managed by discharge/transition of care (reference Stroke (Hemorrhagic) (Adult) CPG). Outcome: Ongoing Problem: OT - Dressing Goal: Lower Body Dressing Description: Pt will complete LE dressing tasks with modified independence for improved ability to complete self-care activities. Outcome: Ongoing Problem: OT - ADLs Goal: Toileting Description: Pt will complete toileting task including clothing management with modified independence for improved ability to safely complete self-care activities. Outcome: Ongoing Problem: OT - Cognition Goal: Cognition simple ADL Description: Pt will demonstrate improved cognition, completing simple ADL task for 10 minutes withno more than 2 cues required to maintain attention, for improved safety and success at discharge destination. Outcome: Ongoing Problem: OT - Balance Goal: Balance - Standing Description: Pt will perform 10 minutes of functional ADL task in standing with supervision and no major LOB to promote safety and improved balance required for self-care activities. Outcome: Ongoing Problem: OT - Endurance Goal: Endurance Functional Mobilty Around Home Description: Pt will complete distance needed for limited community mobility with supervision and good balance. Outcome: Ongoing Problem: OT - Other Goal: Energy Conservation with ADLs Description: Pt will independently utilize at least 3 energy conservation/pacing strategies during ADL completion to promote success and safety during daily routine. Outcome: Ongoing Problem: PT - Balance/Coordination/Neuro Re-Education Goal: Standing Dynamic/Static Balance Description: Pt will perform standing balance tasks for 15 minutes with supervision with out an assistive device in order to improve functional mobility and safety with standing tasks. Outcome: Ongoing Problem: PT - Mobility Goal: Ambulation Description: Pt will ambulate 500 feet with out an assistive device with supervision to improve ability to navigate home environment. Outcome: Ongoing Goal: Stairs Description: Pt will ascend/descend 12 stairs with railings with supervision with out an assistive device to improve ability to perform functional mobility necessary in recommended discharge environment. Outcome: Ongoing Problem: PT - Transfers Goal: Supine <-> Sit Description: Pt will perform bed mobility with flat bed & no rail with independence in order toimprove functional mobility and safety. Outcome: Ongoing Goal: Sit <-> Stand Description: Pt will perform sit to/from stand transfers with supervision with out an assistive device in order to improve functional mobility and safety. Outcome: Ongoing * Plan of Care - Cathleen Manuel OT - 07/14/2022 1:39 PM EST Problem: OT - Dressing Goal: Lower Body Dressing Description: Pt will complete LE dressing tasks with modified independence for improved ability to complete self-care activities. Outcome: Ongoing Problem: OT - ADLs Goal: Toileting Description: Pt will complete toileting task including clothing management with modified independence for improved ability to safely complete self-care activities. Outcome: Ongoing Problem: OT - Cognition Goal: Cognition simple ADL Description: Pt will demonstrate improved cognition, completing simple ADL task for 10 minutes withno more than 2 cues required to maintain attention, for improved safety and success at discharge destination. Outcome: Ongoing Problem: OT - Balance Goal: Balance - Standing Description: Pt will perform 10 minutes of functional ADL task in standing with supervision and no major LOB to promote safety and improved balance required for self-care activities. Outcome: Ongoing Problem: OT - Endurance Goal: Endurance Functional Mobilty Around Home Description: Pt will complete distance needed for limited community mobility with supervision and good balance. Outcome: Ongoing Problem: OT - Other Goal: Energy Conservation with ADLs Description: Pt will independently utilize at least 3 energy conservation/pacing strategies during ADL completion to promote success and safety during daily routine. Outcome: Ongoing * Treatment Plan - Andrea Baker APRN-CHURCH MUSICIAN - 07/14/2022 12:24 PM EST NEUROCRITICAL CARE OR SIGNOUT NOTE Admitting Diagnosis: No admission diagnoses are documented for this encounter. Procedure Completed: Procedure(s): DIAGNOSTIC CEREBRAL ANGIOGRAM Intraoperative Interventions: - EBL: Minimal - Fluids given: crystalloid - Complications: none - Hemodynamic issues? No - Case length: 1 Hr 20 Min 56 Sec Neurologic Exam: Opens eyes spontaneously. EOMI. 3 mm PERRL. Clear speech. Tongue midline. AOX4. Follows commands [id number]. Denies numbness or tingling. Right groin site c/d/i. Femoral pulses 2+ bilaterally. Postop Plan: - Diagnostics: STAT CT H - Flat x 2 hours - Goal SBP <160, MAP >65 - Family updated by CHIOMA 07/14/22 12:24 PM. Discussed with [facility] Attending Physician, Dr. Marquez. 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 POSTOPERATIVE DIAGNOSIS: Intraventricular hemorrhage. PROCEDURE: Diagnostic cerebral angiography. SURGEON(S): Robby Ly MD, PhD. ANESTHESIA: Monitored anesthesia care. COMPLICATIONS: None. SPECIMENS: None. BRIEF CLINICAL HISTORY: Mr. Skinner is a very pleasant 67-year-old man who was admitted yesterday with spontaneous intraventricular hemorrhage. His noninvasive imaging was concerning for moyamoya changes and after discussion with the patient and his , we made decision to proceed with diagnostic angiography. PROCEDURE IN DETAIL: After obtaining written informed consent, the patient was brought to the operating room and positioned supine on the angio table. All pressure points were padded. After induction of monitored anesthesia care, the skin of the right groin was cleaned, prepped, and draped in usual fashion. A time-out was performed. Percutaneous access was obtained the right common femoral artery and a 5- Singaporean introducer sheath placed. A limited right common femoral artery arteriogram was performed. Next, a 5-Singaporean diagnostic catheter advanced over a Glidewire into the aortic arch. The right vertebral artery was catheterized. AP, and oblique images of the posterior circulation were obtained. The catheter was withdrawn to the aortic arch and the right common carotid artery catheterized. AP, lateral, and oblique images of the cervical carotid arteries were obtained. AP, lateral, and oblique images of the cranial circulation were obtained. The catheter was withdrawn to aortic arch and the left common carotid artery catheterized. AP and lateral images of the cervical carotid arteries were obtained. AP, lateral, and oblique images of the cranial circulation were obtained. The catheter was withdrawn to aortic arch and the left vertebral artery catheterized. AP and lateral images of the posterior circulation were obtained. The catheter was removed. The introducer sheath was removed. Hemostasis obtained with a Mynx device. A sterile dressing was applied. Mr. Skinner was awoken from sedation and found to be at his neurologic baseline. He was transferred to Recovery in satisfactory condition. ANGIOGRAPHIC FINDINGS: The limited right common femoral artery arteriogram demonstrates normal puncture site anatomy. The right vertebral artery demonstrates antegrade flow in the posterior circulation. The vertebrals are codominant. There are patent bilateral posterior communicating arteries with some reconstitution of the anterior circulation. There is additionally some pial reconstitution to the posterior cerebral artery of the anterior and middle cerebral artery territories. The capillary and venous phases are unremarkable. The right common carotid arteriogram demonstrates antegrade flow in the cervical carotid arteries. There really is no significant flow within the right internal carotid artery. The capillary and venous phases are unremarkable. The right common carotid cerebral angiogram demonstrates antegrade flow within the extracranial circulation. There is a prominent superficial temporal artery. There is some reconstitution of the intracranial circulation from retrograde filling from the ophthalmic artery. The capillary and venous phases are unremarkable. The left common carotid arteriogram demonstrates antegrade flow in the cervical carotid arteries. Again seen is no significant flow within the internal carotid artery in the neck. The capillary and venous phases are unremarkable. The left common carotid cerebral angiogram demonstrates the antegrade flow within the extracranial circulation. There is a smaller superficial temporal artery then on the right side. There is some scant reconstitution of the left anterior circulation through retrograde flow from the ophthalmic artery. The capillary and venous phases are unremarkable. The left vertebral arteriogram demonstrates antegrade flow in the posterior circulation. The vertebrals are codominant. Again seen, there are patent posterior communicating arteries and pial collaterals reconstituting the anterior circulation. The capillary and venous phases are unremarkable. IMPRESSION: The patient has advanced bilateral moyamoya changes. He has a prominent superficial temporal arteries bilaterally. He could be considered a candidate for revascularization after he recovers from the spontaneous hemorrhage. At the very least, he needs to be on aspirin after the intraventricular hemorrhage has resolved. Dictated By: Robby Ly MD, PhD Robby Ly MD, PhD ATTENDING CJP/MedQ JOB: [id number] DOC: [id number] * Certification - Samir Marquez MD - 07/14/2022 11:15 AM EST I certify that this patient requires inpatient services at this time. I anticipate the expected length of stay will include at least two midnights. Inpatient services are due to the following medicalconcerns intraventricular hemorrhage. Plans for post hospitalization care will be discharge to [facility]. * Plan of Care - Lisa Balbuena PT - 07/14/2022 9:04 AM EST Problem: PT - Balance/Coordination/Neuro Re-Education Goal: Standing Dynamic/Static Balance Description: Pt will perform standing balance tasks for 15 minutes with supervision with out an assistive device in order to improve functional mobility and safety with standing tasks. Outcome: Ongoing Problem: PT - Mobility Goal: Ambulation Description: Pt will ambulate 500 feet with out an assistive device with supervision to improve ability to navigate home environment. Outcome: Ongoing Goal: Stairs Description: Pt will ascend/descend 12 stairs with railings with supervision with out an assistive device to improve ability to perform functional mobility necessary in recommended discharge environment. Outcome: Ongoing Problem: PT - Transfers Goal: Supine <-> Sit Description: Pt will perform bed mobility with flat bed & no rail with independence in order toimprove functional mobility and safety. Outcome: Ongoing Goal: Sit <-> Stand Description: Pt will perform sit to/from stand transfers with supervision with out an assistive device in order to improve functional mobility and safety. Outcome: Ongoing Lisa Balbuena PT, DPT License #: [id number] Pager #: [phone] * Plan of Care - Emperatriz Stevens MD, PhD - 07/14/2022 5:52 AM EST DCA today, keep NPO Emperatriz Stevens MD, PhD Resident Physician, PGY2 Department of Neurological Surgery [facility] Pager: [phone], if no response, please page: [phone] * Plan of Care - William Snow MD - 07/14/2022 3:18 AM EST Urology Plan of Care Note Cefaz 2g IV x1 ordered for Urology procedure detailed in my consult note documented in this encounterU [facility]12-31-2022 Miscellaneous Notes* Nursing Notes - Dolores Horvath RN - 07/25/2022 2:51 PM EST Report called to [facility] charge nurse transporting patient. Pt wearing dentures at this time. Socks and denture cream in tub with toiletries. * Nursing Notes - Dolores Horvath RN - 07/25/2022 2:13 PM EST RN spoke with patient's this morning, she called [facility] a rehab facility her father was at and it is close to their home. She said she is interested in this location for him because it is so close to their home. Facility number is [phone], address [address] She just wanted me to pass along this information to the team for his discharge planning. * Plan of Care - Dolores Horvath RN - 07/25/2022 2:02 PM EST Problem: Patient Care Overview Goal: Interdisciplinary Rounds/Family Conf Outcome: Met This Shift Problem: Patient Care Overview Goal: Plan of Care Review Outcome: Ongoing Goal: Individualization & Mutuality Outcome: Ongoing Goal: Discharge Needs Assessment Outcome: Ongoing Problem: Stroke (Hemorrhagic) (Adult) Goal: Signs and Symptoms of Listed Potential Problems Will be Absent, Minimized or Managed (Stroke) Description: Signs and symptoms of listed potential problems will be absent, minimized or managed by discharge/transition of care (reference Stroke (Hemorrhagic) (Adult) CPG). Outcome: Ongoing * Plan of Care - BETH Alcantara - 07/24/2022 9:48 AM EST Inpatient rehab has been recommended. However, patient does not have insurance and could only go torehab if he is able to pay out of pocket. Lata [employer] International Sales Representative * Plan of Care - Patrice Cash RN - 07/24/2022 6:57 AM EST Was sitter at bedside during evening. Neuro assessment unchanged. Restless in beginning of evening but did become more calm. Walked x4 in hallway. Tol[place] in place. Problem: Patient Care Overview Goal: Plan of Care Review Outcome: Met This Shift Goal: Individualization & Mutuality Outcome: Met This Shift Problem: Stroke (Hemorrhagic) (Adult) Goal: Signs and Symptoms of Listed Potential Problems Will be Absent, Minimized or Managed (Stroke) Description: Signs and symptoms of listed potential problems will be absent, minimized or managed by discharge/transition of care (reference Stroke (Hemorrhagic) (Adult) CPG). Outcome: Met This Shift Problem: Confusion, Acute (Adult) Goal: Identify Related Risk Factors and Signs and Symptoms Description: Related risk factors and signs and symptoms are identified upon initiation of Human Response Clinical Practice Guideline (CPG) Outcome: Met This Shift Problem: Fall/Trauma/Injury Risk (Adult) Goal: Fall/Trauma/Injury Risk: Absence of Trauma/Injury/Falls Description: Patient will demonstrate the desired outcomes. Outcome: Met This Shift Problem: Urine Elimination Impaired (Adult) Goal: Identify Related Risk Factors and Signs and Symptoms Description: Related risk factors and signs and symptoms are identified upon initiation of Human Response Clinical Practice Guideline (CPG) Outcome: Met This Shift Problem: Patient Care Overview Goal: Discharge Needs Assessment Outcome: Ongoing Goal: Interdisciplinary Rounds/Family Conf Outcome: Ongoing Problem: Confusion, Acute (Adult) Goal: Cognitive/Functional Impairments Minimized Description: Patient will demonstrate the desired outcomes by discharge/transition of care. Outcome: Ongoing Goal: Safety Description: Patient will demonstrate the desired outcomes by discharge/transition of care. Outcome: Ongoing Problem: Urine Elimination Impaired (Adult) Goal: Effective Urinary Elimination Description: Patient will demonstrate the desired outcomes by discharge/transition of care. Outcome: Ongoing Goal: Effective Containment of Urine Description: Patient will demonstrate the desired outcomes by discharge/transition of care. Outcome: Ongoing Goal: Reduced Incontinence Episodes Description: Patient will demonstrate the desired outcomes by discharge/transition of care. Outcome: Ongoing * Plan of Care - Cathleen Manuel OT - 07/23/2022 2:18 PM EST Problem: OT - Cognition Goal: Cognition simple ADL Description: Pt will demonstrate improved cognition, completing simple ADL task for 10 minutes withno more than 2 cues required to maintain attention, for improved safety and success at discharge destination. Outcome: Ongoing Problem: OT - Balance Goal: Balance - Standing Description: Pt will perform 10 minutes of functional ADL task in standing with supervision and no major LOB to promote safety and improved balance required for self-care activities. Outcome: Ongoing * Plan of Care - Lisa Balbuena PT - 07/23/2022 11:49 AM EST Problem: PT - Balance/Coordination/Neuro Re-Education Goal: Standing Dynamic/Static Balance Description: Pt will perform standing balance tasks for 15 minutes with supervision with out an assistive device in order to improve functional mobility and safety with standing tasks. Outcome: Ongoing Problem: PT - Transfers Goal: Supine <-> Sit Description: Pt will perform bed mobility with flat bed & no rail with independence in order toimprove functional mobility and safety. Outcome: Ongoing Goal: Sit <-> Stand Description: Pt will perform sit to/from stand transfers with supervision with out an assistive device in order to improve functional mobility and safety. Outcome: Ongoing Lisa Balbuena PT, DPT License #: [id number] Pager #: [phone] * Plan of Care - Mercy Segal RN - 07/23/2022 11:13 AM EST Patient remains Alert to self only with year and month periodically known. Attempted to stand patient to walk in shi and patient unable to stand more than 10 seconds without heavy assist from nursing staff. Will attempt later. Patient remains agitated toward staff with redirection possible. Problem: Patient Care Overview Goal: Plan of Care Review Outcome: Ongoing Goal: Individualization & Mutuality Outcome: Ongoing Goal: Discharge Needs Assessment Outcome: Ongoing Problem: Confusion, Acute (Adult) Goal: Identify Related Risk Factors and Signs and Symptoms Description: Related risk factors and signs and symptoms are identified upon initiation of Human Response Clinical Practice Guideline (CPG) Outcome: Ongoing Goal: Cognitive/Functional Impairments Minimized Description: Patient will demonstrate the desired outcomes by discharge/transition of care. Outcome: Ongoing * Nursing Notes - Liz Landin RN - 07/22/2022 6:58 PM EST Patient's spouse requested for patient to be transferred to a hospital close to their home. 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 Sitter at bedside. Patient ambulated in the hallway using walker and gait belt with significant unsteady gait and much weaker as compared to the day before. Toledo removed at 0830 per order with confirmation from primary team. Patient unable to void after 3attempts using restroom and urinal - bladder scanner showed >230ml urine retention. Urology was paged for recommendation since this RN is not comfortable to straight cath patient due to recent trauma from toledo cath placement. Per Saroj Sheriff MD, straight cath is not recommended and MD would stop by to place a new one with urojet. Primary team is aware of this event. Problem: Patient Care Overview Goal: Plan of Care Review 07/22/2022 1634 by Liz Landin RN Outcome: Ongoing 07/22/2022 1634 by Liz Landin RN Outcome: Ongoing Problem: Patient Care Overview Goal: Individualization & Mutuality 07/22/2022 1634 by Liz Landin RN Outcome: Ongoing 07/22/2022 1634 by Liz Landin RN Outcome: Ongoing Problem: Fall/Trauma/Injury Risk (Adult) Goal: Fall/Trauma/Injury Risk: Absence of Trauma/Injury/Falls Description: Patient will demonstrate the desired outcomes. Outcome: Ongoing Goal: Knowledge of risk factors/behavior modification Description: Knowledge of risk factors/behavior modification for fall/injury prevention Outcome: Ongoing Problem: Confusion, Acute (Adult) Goal: Identify Related Risk Factors and Signs and Symptoms Description: Related risk factors and signs and symptoms are identified upon initiation of Human Response Clinical Practice Guideline (CPG) Outcome: Ongoing Goal: Cognitive/Functional Impairments Minimized Description: Patient will demonstrate the desired outcomes by discharge/transition of care. Outcome: Ongoing Goal: Safety Description: Patient will demonstrate the desired outcomes by discharge/transition of care. Outcome: Ongoing Problem: Urine Elimination Impaired (Adult) Goal: Identify Related Risk Factors and Signs and Symptoms Description: Related risk factors and signs and symptoms are identified upon initiation of Human Response Clinical Practice Guideline (CPG) 07/22/2022 1634 by Liz Landin RN Outcome: Ongoing 07/22/2022 1634 by Liz Landin RN Outcome: Ongoing Goal: Effective Urinary Elimination Description: Patient will demonstrate the desired outcomes by discharge/transition of care. 07/22/2022 1634 by Liz Landin RN Outcome: Ongoing 07/22/2022 1634 by Liz Landin RN Outcome: Ongoing Goal: Effective Containment of Urine Description: Patient will demonstrate the desired outcomes by discharge/transition of care. 07/22/2022 1634 by Liz Landin RN Outcome: Ongoing 07/22/2022 1634 by Liz Landin RN Outcome: Ongoing Goal: Reduced Incontinence Episodes Description: Patient will demonstrate the desired outcomes by discharge/transition of care. 07/22/2022 1634 by Liz Landin RN Outcome: Ongoing 07/22/2022 1634 by Liz Landin RN Outcome: Ongoing * Plan of Care - Toribio Sheriff MD - 07/22/2022 4:27 PM EST I was notified by Mr. Skinner's primary nurse that his catheter was removed this morning and he had not voided in >7 hours despite feeling the urge and trying, bladder scan >230. Toledo Placement Under sterile technique, an 18Fr coude toledo catheter was placed with the use of a Urojet. During insertion of toledo there was no resistance met. There was positive return of yellow urine (after about 1 min of waiting) before 10 mL of sterile water was used to inflate the toledo balloon. If required in the future, nursing should replace catheter with 18 Fr coude using good technique: Ensure patient is lying flat on the bed, and at a good height for the person placing catheter. Instill urojet directly into urethra, pull penis on stretch towards ceiling, insert catheter with coude tip pointing up to ceiling, and hub catheter all the way in the penis. Wait for urine return before inflating balloon. - Would continue flomax. - Can try another void trial in 1-2 days. Would remove catheter closer to 0600 and fill bladder prior to removing per instructions below to give a head start. *Please page urology resident or urology consult resident bone drier in [employer] if questions. The author of this note does not necessarily reflect the individual bone drier.* Toribio Sheriff MD Urology, PGY-3 #[id number] Instructions for filling the bladder with normal saline under gravity: (1) Get a Harley Syringe. (2) Take the plunger out of the harley syringe, and throw the plunger away. You are now left with an open-ended Harley syringe. You will use this as a funnel to connect to the end of the catheter. (3) Lie the patient flat in bed. (4) Remove the drain bag from the toledo catheter. (5) Attach the open ended harley (i.e. your funnel) to the end of the toledo catheter. (6) Hold the catheter and the funnel straight up in the air. (7) Slowly poor normal saline into the open end of the harley (i.e. your funnel) while still holding the toledo and funnel straight up in the air. (8) Allow the normal saline to drain into the bladder under gravity. As the bladder begins to get full, the rate at which the saline is draining from the harley will decrease and eventually stop. There is no specific amount with which to fill the bladder. The bladder is usually full when the salinestops draining from the funnel under gravity or the patient states he is full. This is typically about 200-300ml. (9) remove catheter after filling the bladder, leaving the saline behind. - When patient voids, please record voided volume and bladder scan for post-void residual (PVR). - Successful void trial is voided volume greater than PVR for two separate voids (over 150cc), absolute PVR < 150cc, or at least 3 decreasing serial PVRs. * Plan of Care - Lata Rider RN - 07/22/2022 5:02 AM EST Problem: Confusion, Acute (Adult) Goal: Identify Related Risk Factors and Signs and Symptoms Description: Related risk factors and signs and symptoms are identified upon initiation of Human Response Clinical Practice Guideline (CPG) Outcome: Ongoing Flowsheets (Taken 07/22/2022 7213) Related Risk Factors (Acute Confusion): neurological impairment Signs and Symptoms (Acute Confusion): memory disturbed Note: Pt has spent the entire shift between a RASS of +1 to +3, getting out of the bed frequently, accusing staff of poisoning him, performing surgery on him against his will, and drugging him up. While he's usually oriented to the month and year, he has no sense of scope or situation, and sometimes thinks he's been here for 3 weeks, many months, or even years, and shows clear delirium. He was cursing at his on the phone at the start of the shift for refusing to take him home tonight AMA. He perseverates in conversation on the topics of chlorine bleach and room temperature, and while he can be reoriented, he will rapidly return to talking about one or the other. The room is always way too hot or freezing, and even within a two minute span he flips his claim. Even when staff is not engaging him, and trying to get him to settle and rest, he talks to himself almost without cessation, and tosses and turns in the bed continuously. With the exception of a briefly present headacheafter his SBP > 180, he states he has no pain. He's required multiple doses of interventional BP meds, in addition to the physician increasing hisoral meds and making a dose available this shift. He warranted a sitter a few hours into the shift,and has kept her very busy. The doctor just ordered a one-time dose of half a seroquel to see if itimproves his mentation. Close monitoring ongoing by all. * Plan of Care - Cathleen Manuel OT - 07/21/2022 9:35 AM EST Problem: OT - Balance Goal: Balance - Standing Description: Pt will perform 10 minutes of functional ADL task in standing with supervision and no major LOB to promote safety and improved balance required for self-care activities. Outcome: Ongoing Problem: OT - Endurance Goal: Endurance Functional Mobilty Around Home Description: Pt will complete distance needed for limited community mobility with supervision and good balance. Outcome: Ongoing Problem: OT - Cognition Goal: Cognition simple ADL Description: Pt will demonstrate improved cognition, completing simple ADL task for 10 minutes withno more than 2 cues required to maintain attention, for improved safety and success at discharge destination. Outcome: Progressing Toward Goal * Plan of Care - Lisa Balbuena PT - 07/21/2022 8:35 AM EST Problem: PT - Balance/Coordination/Neuro Re-Education Goal: Standing Dynamic/Static Balance Description: Pt will perform standing balance tasks for 15 minutes with supervision with out an assistive device in order to improve functional mobility and safety with standing tasks. Outcome: Ongoing Problem: PT - Mobility Goal: Ambulation Description: Pt will ambulate 500 feet with out an assistive device with supervision to improve ability to navigate home environment. Outcome: Ongoing Problem: PT - Transfers Goal: Supine <-> Sit Description: Pt will perform bed mobility with flat bed & no rail with independence in order toimprove functional mobility and safety. Outcome: Ongoing Goal: Sit <-> Stand Description: Pt will perform sit to/from stand transfers with supervision with out an assistive device in order to improve functional mobility and safety. Outcome: Ongoing Lisa Balbuena PT, DPT License #: [id number] Pager #: [phone] * Plan of Care - Ever Antonio RN - 07/21/2022 7:28 AM EST No acute events overnight. Remains on RA. Is A&O to self, sometimes confused regarding time, place, and situation but mentation seems to be getting better with time. Pt is eager to get up and walk and wants to be DC ann-marie. Problem: Patient Care Overview Goal: Plan of Care Review Outcome: Ongoing Goal: Individualization & Mutuality Outcome: Ongoing Goal: Discharge Needs Assessment Outcome: Ongoing Goal: Interdisciplinary Rounds/Family Conf Outcome: Ongoing Problem: Stroke (Hemorrhagic) (Adult) Goal: Signs and Symptoms of Listed Potential Problems Will be Absent, Minimized or Managed (Stroke) Description: Signs and symptoms of listed potential problems will be absent, minimized or managed by discharge/transition of care (reference Stroke (Hemorrhagic) (Adult) CPG). Outcome: Ongoing Problem: Confusion, Acute (Adult) Goal: Identify Related Risk Factors and Signs and Symptoms Description: Related risk factors and signs and symptoms are identified upon initiation of Human Response Clinical Practice Guideline (CPG) Outcome: Ongoing Goal: Cognitive/Functional Impairments Minimized Description: Patient will demonstrate the desired outcomes by discharge/transition of care. Outcome: Ongoing Goal: Safety Description: Patient will demonstrate the desired outcomes by discharge/transition of care. Outcome: Ongoing Problem: Fall/Trauma/Injury Risk (Adult) Goal: Fall/Trauma/Injury Risk: Absence of Trauma/Injury/Falls Description: Patient will demonstrate the desired outcomes. Outcome: Ongoing * Plan of Care - Zaida Leo RN - 07/19/2022 6:27 PM EST Plan of care reviewed with patient. Problem: Patient Care Overview Goal: Plan of Care Review Outcome: Ongoing Goal: Individualization & Mutuality Outcome: Ongoing Goal: Discharge Needs Assessment Outcome: Ongoing Goal: Interdisciplinary Rounds/Family Conf Outcome: Ongoing Problem: Stroke (Hemorrhagic) (Adult) Goal: Signs and Symptoms of Listed Potential Problems Will be Absent, Minimized or Managed (Stroke) Description: Signs and symptoms of listed potential problems will be absent, minimized or managed by discharge/transition of care (reference Stroke (Hemorrhagic) (Adult) CPG). Outcome: Ongoing * Plan of Care - Megan Perea MD - 07/19/2022 1:59 PM EST BRIEF NEUROVASCULAR NOTE Called to bedside for mental status change. Was more alert this morning and now more somnolent requiring continuous stimulation to maintain wakeful state. Went to bedside and NIHSS was 13 for encephalopathy, no focal deficits. Able to tell me he does not have headache. Reviewed medications and onlyadded medication was aspirin. Had fever earlier on and UA with possible UTI. CXR appears clear, BCX drawn. He is on keflex for UTI. VSS stable now. 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 Patient with hydrocephalus noted 07/16, resolved without intervention. No further neurosurgical intervention at this time. - Please have patient follow up with Dr. Ly in [address] head to discuss possible revascularization - Neurosurgery will sign-off. Please call with questions. 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 Outcome: Ongoing Goal: Problem Solving Goal 1 Description: Patient will complete basic problem solving tasks in at least 3/5 of opportunities in their immediate environment to support self-advocacy and independence, given min cues across 2 consecutive sessions by discharge. Outcome: Ongoing Goal: Meticognition Goal 1 Description: Patient will identify at least 3 deficits related to medical condition and how deficits will impact ability to return home with min cues across 2-3 sessions to improve insight and safety. Outcome: Ongoing Goal: Orientation Goal Description: Patient will recall/implement use of orientation strategies, given min -no cues, to demonstrate improved awareness and insight as measured by achieving a 27/30 on The Orientation Log, across 1-2 sessions. Outcome: Ongoing * Significant Event - Razia Andrade APRN-CHURCH MUSICIAN - 07/16/2022 6:05 PM EST Notified by RN that pt with mental status change. This MARKETING SALES SUPERVISOR to bedside. Pt nonverbal, no commands butis moving all extremities purposefully. Gaze midline but will not track. Concern for worsening hydrocephalus vs bleed -stat CTH obtained, reviewed with worsening hydrocephalus noted. Dr Ram called and made aware of pt exam and CTH changes with request for EVD. Dr. Marquez made aware and agrees with this plan. -Family at bedside and updated regarding events and need for evd 184 Dr. Ram to bedside. During his exam, pt awoke. FC x4, drowsy but able to state name. Given improved exam, NS plans to hold on EVD at this time and continue with close monitoring. Family agrees to EVD if needed overnight. Plan CTH in am Added q [address] Marquez updated on above and agrees with this plan. Report to night team who will cont to monitor pt closely Razia Andrade CNP * Plan of Care - Dory Venegas RN - 07/16/2022 5:25 PM EST Problem: Patient Care Overview Goal: Plan of Care Review Outcome: Ongoing Flowsheets (Taken 07/16/2022 1724) Outcome Summary: Marco remains in the ICU for close monitoring of neuro status, pt stable this shift Marco has good PO intake, MIVF stopped today SBP goal <140, pt needing PRN medications to remain within goal Goal: Individualization & Mutuality Outcome: Ongoing Goal: Discharge Needs Assessment Outcome: Ongoing Goal: Interdisciplinary Rounds/Family Conf Outcome: Ongoing Problem: Stroke (Hemorrhagic) (Adult) Goal: Signs and Symptoms of Listed Potential Problems Will be Absent, Minimized or Managed (Stroke) Description: Signs and symptoms of listed potential problems will be absent, minimized or managed by discharge/transition of care (reference Stroke (Hemorrhagic) (Adult) CPG). Outcome: Ongoing Problem: Confusion, Acute (Adult) Goal: Identify Related Risk Factors and Signs and Symptoms Description: Related risk factors and signs and symptoms are identified upon initiation of Human Response Clinical Practice Guideline (CPG) Outcome: Ongoing Goal: Cognitive/Functional Impairments Minimized Description: Patient will demonstrate the desired outcomes by discharge/transition of care. Outcome: Ongoing Goal: Safety Description: Patient will demonstrate the desired outcomes by discharge/transition of care. Outcome: Ongoing Problem: Fall/Trauma/Injury Risk (Adult) Goal: Fall/Trauma/Injury Risk: Absence of Trauma/Injury/Falls Description: Patient will demonstrate the desired outcomes. Outcome: Ongoing * Plan of Care - Gumaro Pastrana MD - 07/16/2022 3:18 PM EST Neurosurgery Update: Consulted for bilateral IVH. Imaging reviewed which revealed stable ventricles and hemorrhage. No neurosurgical intervention at this time. - Please have patient follow up with Dr. Ly in 4 weeks to discuss elective revascularization - Neurosurgery will sign-off. Please call with questions. Gumaro Pastrana MD, Neurosurgery NS2 ([phone]) * Plan of Care - Tejas Segal RN - 07/14/2022 10:11 PM EST Problem: Patient Care Overview Goal: Plan of Care Review Outcome: Ongoing Goal: Individualization & Mutuality Outcome: Ongoing Goal: Discharge Needs Assessment Outcome: Ongoing Goal: Interdisciplinary Rounds/Family Conf Outcome: Ongoing Problem: Stroke (Hemorrhagic) (Adult) Goal: Signs and Symptoms of Listed Potential Problems Will be Absent, Minimized or Managed (Stroke) Description: Signs and symptoms of listed potential problems will be absent, minimized or managed by discharge/transition of care (reference Stroke (Hemorrhagic) (Adult) CPG). Outcome: Ongoing * Plan of Care - Sherley Carpio RN - 07/14/2022 4:31 PM EST Multidisciplinary rounds complete. Mr. Skinner has been alert and oriented to self. He passed his sherry swallow. Pt/OT had him up and walking the shi. He went to OR for cerebral angiogram. Post procedure check tool was completed after he returned from the OR. Problem: Patient Care Overview Goal: Plan of Care Review Outcome: Ongoing Goal: Individualization & Mutuality Outcome: Ongoing Goal: Discharge Needs Assessment Outcome: Ongoing Goal: Interdisciplinary Rounds/Family Conf Outcome: Ongoing Problem: Stroke (Hemorrhagic) (Adult) Goal: Signs and Symptoms of Listed Potential Problems Will be Absent, Minimized or Managed (Stroke) Description: Signs and symptoms of listed potential problems will be absent, minimized or managed by discharge/transition of care (reference Stroke (Hemorrhagic) (Adult) CPG). Outcome: Ongoing Problem: OT - Dressing Goal: Lower Body Dressing Description: Pt will complete LE dressing tasks with modified independence for improved ability to complete self-care activities. Outcome: Ongoing Problem: OT - ADLs Goal: Toileting Description: Pt will complete toileting task including clothing management with modified independence for improved ability to safely complete self-care activities. Outcome: Ongoing Problem: OT - Cognition Goal: Cognition simple ADL Description: Pt will demonstrate improved cognition, completing simple ADL task for 10 minutes withno more than 2 cues required to maintain attention, for improved safety and success at discharge destination. Outcome: Ongoing Problem: OT - Balance Goal: Balance - Standing Description: Pt will perform 10 minutes of functional ADL task in standing with supervision and no major LOB to promote safety and improved balance required for self-care activities. Outcome: Ongoing Problem: OT - Endurance Goal: Endurance Functional Mobilty Around Home Description: Pt will complete distance needed for limited community mobility with supervision and good balance. Outcome: Ongoing Problem: OT - Other Goal: Energy Conservation with ADLs Description: Pt will independently utilize at least 3 energy conservation/pacing strategies during ADL completion to promote success and safety during daily routine. Outcome: Ongoing Problem: PT - Balance/Coordination/Neuro Re-Education Goal: Standing Dynamic/Static Balance Description: Pt will perform standing balance tasks for 15 minutes with supervision with out an assistive device in order to improve functional mobility and safety with standing tasks. Outcome: Ongoing Problem: PT - Mobility Goal: Ambulation Description: Pt will ambulate 500 feet with out an assistive device with supervision to improve ability to navigate home environment. Outcome: Ongoing Goal: Stairs Description: Pt will ascend/descend 12 stairs with railings with supervision with out an assistive device to improve ability to perform functional mobility necessary in recommended discharge environment. Outcome: Ongoing Problem: PT - Transfers Goal: Supine <-> Sit Description: Pt will perform bed mobility with flat bed & no rail with independence in order toimprove functional mobility and safety. Outcome: Ongoing Goal: Sit <-> Stand Description: Pt will perform sit to/from stand transfers with supervision with out an assistive device in order to improve functional mobility and safety. Outcome: Ongoing * Plan of Care - Cathleen Manuel OT - 07/14/2022 1:39 PM EST Problem: OT - Dressing Goal: Lower Body Dressing Description: Pt will complete LE dressing tasks with modified independence for improved ability to complete self-care activities. Outcome: Ongoing Problem: OT - ADLs Goal: Toileting Description: Pt will complete toileting task including clothing management with modified independence for improved ability to safely complete self-care activities. Outcome: Ongoing Problem: OT - Cognition Goal: Cognition simple ADL Description: Pt will demonstrate improved cognition, completing simple ADL task for 10 minutes withno more than 2 cues required to maintain attention, for improved safety and success at discharge destination. Outcome: Ongoing Problem: OT - Balance Goal: Balance - Standing Description: Pt will perform 10 minutes of functional ADL task in standing with supervision and no major LOB to promote safety and improved balance required for self-care activities. Outcome: Ongoing Problem: OT - Endurance Goal: Endurance Functional Mobilty Around Home Description: Pt will complete distance needed for limited community mobility with supervision and good balance. Outcome: Ongoing Problem: OT - Other Goal: Energy Conservation with ADLs Description: Pt will independently utilize at least 3 energy conservation/pacing strategies during ADL completion to promote success and safety during daily routine. Outcome: Ongoing * Treatment Plan - Andrea Baker APRN-CHURCH MUSICIAN - 07/14/2022 12:24 PM EST NEUROCRITICAL CARE OR SIGNOUT NOTE Admitting Diagnosis: No admission diagnoses are documented for this encounter. Procedure Completed: Procedure(s): DIAGNOSTIC CEREBRAL ANGIOGRAM Intraoperative Interventions: - EBL: Minimal - Fluids given: crystalloid - Complications: none - Hemodynamic issues? No - Case length: 1 Hr 20 Min 56 Sec Neurologic Exam: Opens eyes spontaneously. EOMI. 3 mm PERRL. Clear speech. Tongue midline. AOX4. Follows commands [id number]. Denies numbness or tingling. Right groin site c/d/i. Femoral pulses 2+ bilaterally. Postop Plan: - Diagnostics: STAT CT H - Flat x 2 hours - Goal SBP <160, MAP >65 - Family updated by CHIOMA 07/14/22 12:24 PM. Discussed with NCCU Attending Physician, Dr. Marquez. 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 POSTOPERATIVE DIAGNOSIS: Intraventricular hemorrhage. PROCEDURE: Diagnostic cerebral angiography. SURGEON(S): Robby Ly MD, PhD. ANESTHESIA: Monitored anesthesia care. COMPLICATIONS: None. SPECIMENS: None. BRIEF CLINICAL HISTORY: Mr. Skinner is a very pleasant 67-year-old man who was admitted yesterday with spontaneous intraventricular hemorrhage. His noninvasive imaging was concerning for moyamoya changes and after discussion with the patient and his , we made decision to proceed with diagnostic angiography. PROCEDURE IN DETAIL: After obtaining written informed consent, the patient was brought to the operating room and positioned supine on the angio table. All pressure points were padded. After induction of monitored anesthesia care, the skin of the right groin was cleaned, prepped, and draped in usual fashion. A time-out was performed. Percutaneous access was obtained the right common femoral artery and a 5- Singaporean introducer sheath placed. A limited right common femoral artery arteriogram was performed. Next, a 5-Singaporean diagnostic catheter advanced over a Glidewire into the aortic arch. The right vertebral artery was catheterized. AP, and oblique images of the posterior circulation were obtained. The catheter was withdrawn to the aortic arch and the right common carotid artery catheterized. AP, lateral, and oblique images of the cervical carotid arteries were obtained. AP, lateral, and oblique images of the cranial circulation were obtained. The catheter was withdrawn to aortic arch and the left common carotid artery catheterized. AP and lateral images of the cervical carotid arteries were obtained. AP, lateral, and oblique images of the cranial circulation were obtained. The catheter was withdrawn to aortic arch and the left vertebral artery catheterized. AP and lateral images of the posterior circulation were obtained. The catheter was removed. The introducer sheath was removed. Hemostasis obtained with a Mynx device. A sterile dressing was applied. Mr. Skinner was awoken from sedation and found to be at his neurologic baseline. He was transferred to Recovery in satisfactory condition. ANGIOGRAPHIC FINDINGS: The limited right common femoral artery arteriogram demonstrates normal puncture site anatomy. The right vertebral artery demonstrates antegrade flow in the posterior circulation. The vertebrals are codominant. There are patent bilateral posterior communicating arteries with some reconstitution of the anterior circulation. There is additionally some pial reconstitution to the posterior cerebral artery of the anterior and middle cerebral artery territories. The capillary and venous phases are unremarkable. The right common carotid arteriogram demonstrates antegrade flow in the cervical carotid arteries. There really is no significant flow within the right internal carotid artery. The capillary and venous phases are unremarkable. The right common carotid cerebral angiogram demonstrates antegrade flow within the extracranial circulation. There is a prominent superficial temporal artery. There is some reconstitution of the intracranial circulation from retrograde filling from the ophthalmic artery. The capillary and venous phases are unremarkable. The left common carotid arteriogram demonstrates antegrade flow in the cervical carotid arteries. Again seen is no significant flow within the internal carotid artery in the neck. The capillary and venous phases are unremarkable. The left common carotid cerebral angiogram demonstrates the antegrade flow within the extracranial circulation. There is a smaller superficial temporal artery then on the right side. There is some scant reconstitution of the left anterior circulation through retrograde flow from the ophthalmic artery. The capillary and venous phases are unremarkable. The left vertebral arteriogram demonstrates antegrade flow in the posterior circulation. The vertebrals are codominant. Again seen, there are patent posterior communicating arteries and pial collaterals reconstituting the anterior circulation. The capillary and venous phases are unremarkable. IMPRESSION: The patient has advanced bilateral moyamoya changes. He has a prominent superficial temporal arteries bilaterally. He could be considered a candidate for revascularization after he recovers from the spontaneous hemorrhage. At the very least, he needs to be on aspirin after the intraventricular hemorrhage has resolved. Dictated By: Robby Ly MD, PhD Robby Ly MD, PhD ATTENDING P/MedQ JOB: [id number] DOC: [id number] * Certification - Samir Marquez MD - 07/14/2022 11:15 AM EST I certify that this patient requires inpatient services at this time. I anticipate the expected length of stay will include at least two midnights. Inpatient services are due to the following medicalconcerns intraventricular hemorrhage. Plans for post hospitalization care will be discharge to [facility]. * Plan of Care - Lisa Balbuena PT - 07/14/2022 9:04 AM EST Problem: PT - Balance/Coordination/Neuro Re-Education Goal: Standing Dynamic/Static Balance Description: Pt will perform standing balance tasks for 15 minutes with supervision with out an assistive device in order to improve functional mobility and safety with standing tasks. Outcome: Ongoing Problem: PT - Mobility Goal: Ambulation Description: Pt will ambulate 500 feet with out an assistive device with supervision to improve ability to navigate home environment. Outcome: Ongoing Goal: Stairs Description: Pt will ascend/descend 12 stairs with railings with supervision with out an assistive device to improve ability to perform functional mobility necessary in recommended discharge environment. Outcome: Ongoing Problem: PT - Transfers Goal: Supine <-> Sit Description: Pt will perform bed mobility with flat bed & no rail with independence in order toimprove functional mobility and safety. Outcome: Ongoing Goal: Sit <-> Stand Description: Pt will perform sit to/from stand transfers with supervision with out an assistive device in order to improve functional mobility and safety. Outcome: Ongoing Lisa Balbuena PT, DPT License #: [id number] Pager #: [phone] * Plan of Care - Emperatriz Stevens MD, PhD - 07/14/2022 5:52 AM EST DCA today, keep NPO Emperatriz Stevens MD, PhD Resident Physician, PGY2 Department of Neurological Surgery [facility] Pager: [phone], if no response, please page: [phone] * Plan of Care - William Snow MD - 07/14/2022 3:18 AM EST Urology Plan of Care Note Cefaz 2g IV x1 ordered for Urology procedure detailed in my consult note documented [facility]* Nursing Notes - Dolores Horvath RN - 07/25/2022 2:13 PM EST RN spoke with patient's this morning, she called [facility] a rehab facility her father was at and it is close to their home. She said she is interested in this location for him because it is so close to their home. Facility number is [phone], address [address] [place] [address]. She just wanted me to pass along this information to the team for his discharge planning. [facility]12-31-2022 Note* Nursing Notes - Dolores Horvath RN - 07/25/2022 2:13 PM EST RN spoke with patient's this morning, she called [facility] a rehab facility her father was at and it is close to their home. She said she is interested in this location for him because it is so close to their home. Facility number is [phone], address [address] [place] [address]. She just wanted me to pass along this information to the team for his discharge planning. [facility]12-31-2022 Note* Plan of Care - Dolores Horvath RN - 07/25/2022 2:02 PM EST Problem: Patient Care Overview Goal: Interdisciplinary Rounds/Family Conf Outcome: Met This Shift Problem: Patient Care Overview Goal: Plan of Care Review Outcome: Ongoing Goal: Individualization & Mutuality Outcome: Ongoing Goal: Discharge Needs Assessment Outcome: Ongoing Problem: Stroke (Hemorrhagic) (Adult) Goal: Signs and Symptoms of Listed Potential Problems Will be Absent, Minimized or Managed (Stroke) Description: Signs and symptoms of listed potential problems will be absent, minimized or managed by discharge/transition of care (reference Stroke (Hemorrhagic) (Adult) CPG). Outcome: Ongoing [facility]12-31-2022 Note* Plan of Care - Dolores Horvath RN - 07/25/2022 2:02 PM EST Problem: Patient Care Overview Goal: Interdisciplinary Rounds/Family Conf Outcome: Met This Shift Problem: Patient Care Overview Goal: Plan of Care Review Outcome: Ongoing Goal: Individualization & Mutuality Outcome: Ongoing Goal: Discharge Needs Assessment Outcome: Ongoing Problem: Stroke (Hemorrhagic) (Adult) Goal: Signs and Symptoms of Listed Potential Problems Will be Absent, Minimized or Managed (Stroke) Description: Signs and symptoms of listed potential problems will be absent, minimized or managed by discharge/transition of care (reference Stroke (Hemorrhagic) (Adult) CPG). Outcome: Ongoing [facility]12-31-2022 Hospital course Narrative* Annie Hutchins, AUTO MECHANICS TEACHER-CHURCH MUSICIAN - 07/25/2022 1:19 PM EST Images from the original note were not included. Discharge Summary Name: Love Skinner Age: 67 y.o. Birthday: 1955 Admit Date: 07/14/2022 2:54 PM Discharge Date: 07/25/2022 Discharge Time: 1700 Discharge Unit: NCCU Admission Information Admitting Physician: Idalmis Machado MD Discharge Information Discharge Physician: Dr. Petrona Huynh Problem List Active Hospital Problems Diagnosis Stroke Resolved Hospital Problems No resolved problems to display. Brief Summary of Hospital Course for Discharge Summary: Dear Providers, We recently had the pleasure of taking care of Love Skinner at [facility]. As you well know Love Skinner is a 67 y.o. male with PMH significant fortobacco use disorder who presented to [facility] ED with nausea, vomiting, and headache found to have interventricular hemorrhage. Symptoms started around 1200 on 07/13/2022 while he was working. He was taken to OSH where CTH demonstrated bilateral IVH L>R. He was transferred to [facility] for further work-up. He does not take any anticoagulants or antiplatelets. He arrived on cardene drip and SBP less than 140. NIH 3 on arrival for LUE weakness and confusion. Brief summary of Imaging: CTH on arrival: IVH L > R, stable from outside hospital CTA: no spot sign. 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 and posterior circulation- Mcdermott Mcdermott -will need NSGY follow up in 4 weeks with repeat CTH to discuss revascularization EKG on admission: NSR, QTC 471 LDL 131 HgbA1c 5.7 He was discharged from [facility] N[facility]U and readmitted to the PCU under neurovascular on 07/25 Diagnosis: IVH c/b hydrocephalus, ICH score 1 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 CTH without change. SBP dropped from 154 sitting to 89standing -GREG hose ordered -1 liter of IV fluids on 07/25 -Orthostatic precautions including gradual position changes Leukocytosis and Concern for UTI: T Max 100.5 F on 07/19, CXR unremarkable, UA with small leukocytes and 10-20 WBC's, Urine culture no growth. Blood cultures from 07/19 with no growth -Keflex discontinued on 07/25 Headache: improved, Given reglan IV and magnesium IV 07/19 -Acetaminophen PRN Hyponatremia, hypokalemia, hypomagnesiumia: Likely 2/2 poor oral intake -Replace as needed -Encourage PO intake HLD: -statin as above HTN: Goal SBP < 140 -Lisinopril increased to 40 mg on 07/20 -Norvasc 10 mg initiated 07/19 -Coreg 12.5 mg BID BPH: Improving -Flomax 0.4mg daily -Urology was consulted due to presence of false tract and they placed [place] on 07/22 -Continue flomax. -Failed post void trial today (has had catheter placed x2 by urology) -Per urology note, nursing staff to trial coude catheter placement Delirium: improved, likely a combination of IVH/hydrocephalus, hospital acquired -Scheduled seroquel Tobacco use: POA -Nicotine patch -Encourage cessation On the day of discharge the patient was afebrile, vital signs were stable. Summary of last selected lab results and date obtained: Lab Results Component Value Date WBC 10.08 07/30/2022 HGB 14.1 07/30/2022 HCT 42.8 07/30/2022 PLATELET 280 07/31/2022 MCV 94.1 07/30/2022 Lab Results Component Value Date SODIUM 138 07/30/2022 POTASSIUM 4.3 07/30/2022 CHLORIDE 105 07/30/2022 CO2 27 07/30/2022 BUN 27 (H) 07/30/2022 CREATSERUM 0.72 07/30/2022 GLUCOSE 128 (H) 07/30/2022 Lab Results Component Value Date ALT 16 07/13/2022 AST 18 07/13/2022 ALKPHOS 57 07/13/2022 BILITOTAL 1.5 (H) 07/13/2022 BILIDIRECT 0.2 07/13/2022 Brief Summary of Labs for Discharge Summary: Discharge Orders CT HEAD WITHOUT CONTRAST AMB REFERRAL TO NEUROSURGERY AMB REFERRAL TO UROLOGY AMB REFERRAL TO LONG TERM FACILITY Current Outpatient Meds: Medication List for when you go home START taking these medications amLODIPine 10 MG TABS Take 1 tablet by mouth daily. Commonly known as: NORVASC carveDILOL 12.5 MG TABS Take 1 tablet by mouth 2 times daily. Commonly known as: COREG Melatonin 3 MG TABS Take 2 tablets by mouth every evening at 6 PM. nicotine 14 MG/24HR PT24 patch Place 1 patch on skin every 24 hours. Commonly known as: NICODERM CQ * QUEtiapine 25 MG TABS Take 1 tablet by mouth at bedtime. Commonly known as: SEROquel * QUEtiapine 25 MG TABS Take 0.5 tablets by mouth daily. Commonly known as: SEROquel * The same medication is listed twice. Please discuss with your provider. CONTINUE taking these medications aspirin 81 MG CHEW chewable tablet Chew 1 tablet daily. atorvastatin 80 MG TABS Take 1 tablet by mouth at bedtime. Commonly known as: LIPITOR lisinopril 40 MG TABS Take 1 tablet by mouth daily. Commonly known as: PRINIVIL Tamsulosin HCl 0.4 MG CAPS Take 1 capsule by mouth daily. Commonly known as: FLOMAX STOP taking these medications cephALEXin 500 MG CAPS Commonly known as: KEFLEX Medication Instructions: Know your medicines Make sure you know why you are taking each medicine. Make a master list of all your medicines. Write down the medicine names and doctors' names. Includedoses and side effects too. And write down why you take each medicine. Include all prescription ngjgucp-kpb-hdeqrlk medicines, vitamins, and supplements. Keep this list up to date. Take a copy to each doctor visit. Know when you will run out of each medicine. Ask your pharmacist if there are ways the drugstore can remind you to refill your medicines so you do not run out. Write refill reminders on your calendar. Don't wait until you have a few pills left. Ask your pharmacist to plan your refills so that you can peanut picker all your medicines at the same time. This can mean fewer trips to the drugstore. If we have prescribed you a new medication during your stay, please contact with your primary physician for refills Follow-up: [address] [facility] [id number] Follow up Please call to schedule follow-up appointment with urology for urinary retention. Upcoming Appointments (up to five)-Some appointments for Medical Center outpatient clinics or diagnostic testing locations are not displayed below Provider Department Dept Phone 08/25/2022 9:45 AM [facility] Imaging Outpatient Care [place] Arrive at: Arrive to 1st Floor Registration Desk [phone] 08/25/2022 11:30 AM Robby Ly [facility] [phone] 09/29/2022 12:00 PM Ben Oviedo [facility] Neu[facility] [phone] [facility] Reason for visit Narrative* Auth/Cert Specialty Diagnoses / Procedures Referred By Otoniel t Referred To Contact Samir Marquez MD [address] [place] [address] [facility] [address] [place] [address] Referral ID Status Reason Start Date Expiration Date Visits Re quested Visits Authorized [id number] [address] [facility]12-30-2022 Hospital Discharge instructions* Discharge Instructions* Wendy Alston APRN-ZACK - 07/24/2022 4:14 PM EST Please take these discharge instructions to your primary care doctor follow appointment to show them,keep them for your reference and refer to them often for follow up appointments.It is best to write your appointments on a personal calendar so you do not miss them,call if you need to change any appointments please. Education: What are the most common symptoms of stroke? The following are the most common symptoms of stroke. However, each individual may experience symptoms differently. If any of these symptoms are present, call 911 (or your local ambulance service) immediately. Treatment is most effective when started immediately. Symptoms may be sudden and include: -Weakness or numbness of the face, arm, or leg, especially on one side of the body -Confusion or difficulty speaking or understanding -Problems with vision such as dimness or loss of vision in one or both eyes -Dizziness or problems with balance or coordination -Problems with movement or walking -Severe headaches with no other known cause, especially if sudden onset All of the above warning signs may not occur with each stroke. Do not ignore any of the warning signs, even if they go away - take action immediately. The symptoms of stroke may resemble other medical conditions or problems. Always consult your physician for a diagnosis We have provided both written and verbal education to the patient and family regarding ischemic andhemorrhagic strokes. We have discussed the warning signs/symptoms as well as causes of stroke. We have discussed the importance of activating 911/EMS in the event of these symptoms. We have reviewed the patient's personal risk factors as well as education on reducing these risk factors. [facility] Personalized Stroke Treatment Plan My Stroke Type: [] Ischemic Stroke (Blockage of blood flow to the brain) [x] Hemorrhagic Stroke (Bleeding in the brain) [] TIA- Transient Ischemic Attack (mini-stroke) My Risk Factors Include: [x] High Blood Pressure [] Diabetes [] High Cholesterol [] Heart Disease [] Atrial Fibrillation (Irregular Heart Rate) [x] Smoking [] Obesity [] Clotting Disorder [] Alcohol Abuse [] Drug Abuse [] Prior History [] Family History [] Obstructive Sleep Apnea My Follow-Up Treatment Goals: [x] Blood Pressure < 140/90 [x] Stop Smoking Immediately [] LDL < 70 [] HgA1C levels <7% [] Decrease BMI to <25 [x] Take all ordered medications [x] Avoid non-prescription or over the counter medication not cleared by your physician [x] Limit Alcohol use to no more than 1 drink per day for females and 2 drinks per day for males [] Do not drive until cleared [x] Follow up with PCP within a week of discharge to home [x] Follow-up with Neurovascular [x] Follow-up with Occupational,physical and speech therapy if ordered [x] Watch out for depression and seek treatment if needed CONTACTS FOR NEUROVASCULAR SERVICE: - You may call your neurovascular doctors office at [phone], if you have questions between 8:30 am and 4:30 pm. - For off hours or the weekend you may call the office or the hospital sanding line operator at and ask for the stroke resident bone drier to be paged. - If you have any questions or needs, please call Zuri Fernandez RN, stroke j2ee programmer at [phone] Wed-Wed from 01-25 ? Any questions concerning your discharge instructions please call Case Management Office [phone] Patient Stroke Resources: [facility] Stroke Support The [facility] Stroke Support Group is for stroke survivors, friends, andfamily members. Meets every Wednesday from 12:00PM to 1:00PM at [facility]), [address] [place] [address]. Jacque Lopez, at [phone]. If you are outside of the [facility], contact The [place] at www.strokeassociation.org or 4-237-0-stroke, or for supports groups in your area. Also refer to the Stroke Education booklet you received as part of your stroke education while you were a patient for additional resources Additional Contacts: Evening and Weekend Contacts If you have questions or concerns during evening, weekend, or holiday hours, please call: -[facility] and [facility] sanding line operator at [phone]. -[facility] sanding line operator at [phone] Ask the sanding line operator to page the on-call doctor for Neurovascular service, they were responsible for your care while you were in the hospital. If you having an emergency, call 911. *In the event of an Emergency: If you have a physical or psychiatric emergency call 911 or go to your local emergency department. You should also call your outpatient provider's emergency number. Other reference numbers: [facility] Intake Office at 337-210-1966; [facility] at 539-821-4766; or Suicide Prevention Hotline at 388-367-8011. *Helpful phone numbers: Free Crisis Hotline: 3-321-133-TALK ( ) Suicide Hotline: 517.365.1693 Seniors Suicide Hotline: 399.872.4258 [facility] Youth: 388.367.2528 Mental Health of Jessica: 311.768.1216 (free counseling) [employer] Access Hotline: 738-796-FKQZ (009-015-8874) 24-hour crisis text hotline: Text the word 4hope to 851-022 for crisis support. Texting this number is free if you have Verizon, T-Mobile, AT&T or Sprint. [facility] Financial Assistance: If you want to learn more about these programs, please call .There are three programsto help you with the cost of your medical care: Medicaid, Hospital Care Assurance Program (HCAP) & jen If you are without Insurance and believe you may qualify for Medicaid/public assistance: The [facility] Department of Job and Family Services can now process hurtado (TANF), food (SNAP) and Medicaid Applications over the phone. Please call 5-112-402[facility] (1935) and apply over the phone or apply online at www.benefits.[place].gov. Wednesday-Wednesday 8am-12pm noon. Medication Assistance Programs [employer] members can buy 100+ common prescriptions for FREE, $3 or $6. Annual membership is $36 for individuals and $72 for families (up to 6 people, including pets). Sign up online or enroll at your nearest pharmacy! -[employer], web site can provide a significant number of coupons for medications at a much lower gonzalez. * Medications* RADHA Sanford - 07/24/2022 4:12 PM EST Know your medicines Make sure you know why you are taking each medicine. Make a master list of all your medicines. Write down the medicine names and doctors' names. Includedoses and side effects too. And write down why you take each medicine. Include all prescription xmfhzpf-iuy-fepovid medicines, vitamins, and supplements. Keep this list up to date. Take a copy to each doctor visit. Know when you will run out of each medicine. Ask your pharmacist if there are ways the drugstore can remind you to refill your medicines so you do not run out. Write refill reminders on your calendar. Don't wait until you have a few pills left. Ask your pharmacist to plan your refills so that you can peanut picker all your medicines at the same time. This can mean fewer trips to the drugstore. If we have prescribed you a new medication during your stay, please contact with your primary physician for refills * Discharge Instr - Activity* RADHA Sanford - 07/24/2022 4:12 PM EST Activity -- Please follow these instructions: -Advance your activity as you can tolerate - You may walk all you want. You may go up and down the steps. Use the railing for support - It is normal for your energy level and sleep patterns to change after a stroke - Take rest periods during the day as needed - Complete recovery may take several weeks, months, up to a year. Patience is mchugh. * Discharge Instr - Diet* RADHA Sanford - 07/24/2022 4:13 PM EST Current Diet Orders Procedures DIET REGULAR Standing Status: Standing Number of Occurrences: 1 * Discharge Instr - Notify* Lilli Joni - 07/15/2022 11:37 AM EST You should establish care with PCP There are several free clinics in [facility]. You can locate them by going to Free Clinics Free Medical Clinics Free Health Clinics LIST OF LOCAL FREE AND LOW COST CLINICS: Wednesday Clinic [facility] (formerly known as [facility]) Description: Free walk-in clinic. No appointment needed. Photo ID required. Does not provide on-going care, work, school or sports physicals. Must be [facility] resident. In collaboration with [facility], there is free HIV/STI screening every Wednesday night. Location: [facility], [address] [place] [address] Hours: Wednesday evenings. Registration begins at 5 pm. Please don t come before 5 pm. There is no clinic on holidays or when [facility] is closed. or [email or web address] [facility] Please arrive at 5:30, first come first serve. We can facilitate lab work and referrals to other free specialists. Location: [address] [place] [address] Hours: & Wednesday evenings. 12 patients seen on a first come, first served basis. Patients must sign in between 6 and 7 pm. , ext. [phone]. Wednesday Clinic [facility] Description: Free walk-in clinic. Ani based. Cooperative effort of [facility] & [facility]. The [facility] functions like an urgent care service offering school and sports physicals. Doctors can write prescriptions but are unable to offer suturing or injections. [facility]: [facility], [address] [place] [address] Hours: & Wednesday of every month, 6-8 pm. Wednesday Clinic [facility] Description: 6:30pm-8:30pm EVERY Wednesday night. We have a medical doctor and nurses available. Prescriptions can be written and we give $4 gift cards to purchase one month s supply of prescriptions. We do not do narcotic drugs, nor do we have any drugs at the clinic. -6:30 to 8:30 PM EVERY Wednesday. Free care clinic EVERY Wednesday. We offer free testing, free ultrasound, and free classes. We also mentor mothers and host families. -Wednesday only: Vision services available as is legal, financial reporting accountant, computer repair and taxes (Aug-Oct). We also offer free bicycle repair, donated bicycles (when available), dog obedience training (November-Apr) on clinic night, and free computer repair. A person can only attend ONE clinic on a Wednesday night. Location: [address] [place] [address] Hours: Wednesday of the month, 6:30pm - 8:30 pm. No appointments necessary. . People are served on first come first serve basis. Clinic [facility] Description: Patients order of service is based upon their needs. Provides medical care, chiropractic, WORK and school PHYSICALS ONLY on Wednesday clinics, counseling, vision & dental referrals, diabetes screening and foot checks, patient education, medication & lab services for [facility] patients, [employer], social service technician & spiritual guidance. TB testing on Wednesdays before Wed clinics. See online schedule. Donations accepted. Interpreters available if you call ahead. Location: [address] [place] [address] Hours: 2 Fridays and 2 a month. Call [phone] to find out the clinic dates or check the calendar on our website at [email or web address]. Registration starts at 2:30 pm. , email: [email or web address] Description: Free walk-in clinic that does provide on-going care. Hours: evenings only. 25-45 patients seen on first come first served basis. Sign-up sheet posted from 7:00 am - 4:30 pm. The sign-up sheet is posted on the garage level outside the glass entrance doors. Patients must sign up and then return at 4:30 pm. Names from the sign-up sheet are called at 4:30 pm on the 2nd floor. Patient must be present when name is called in order to be seen. Patients will begin to be seen at 5:45 pm. This clinic does not provide immunizations, pain medications, physical exams, STD, HIV or TB testing, or care. (See pgs 8, 14 & 15 for information about [facility] clinics that provide those services). We only see returning patients once every 4 weeks. Location: [address] [place] [address] or [email or web address] Wednesday Clinic [facility] Description: Free clinic for adults over eighteen at or below 200% of poverty level who are uninsured, under-insured and looking for a medical home. Ani based. Patients order of service is based upon their needs. Provides medical care, chiropractic, WORK and school PHYSICALS ONLY on Wednesday clinics, counseling, vision & dental referrals, diabetes screening and foot checks, patient education,medication & lab services for [facility] patients, [employer], social service technician & spiritual guidance. TB testing on Wednesdays before Wednesday clinics. See online schedule. Donations accepted. Interpreters available if you call ahead. Location: [address] [place] [address] Hours: 2 Fridays and 2 a month. Call [phone] to find out the clinic dates or check the calendar on our website at [email or web address]. Registration starts at 2:30 pm. , email [email or web address] Wednesday [facility] Description: Free walk-in clinic. Ani based. Location: [address] [place] [address] Hours: Wednesdays, 9am - 12pm . Wednesday Clinic [facility] Description: Free walk-in clinic for the working poor and homeless sponsored by [facility]. Breakfast is offered at 6:30 am. Free clothing room is also available on Tuesdays andWednesdays from 9-11:15am. Ani based. Spiritual guidance offered. No physicals or lab work provided. Location: [address] [place] [address] Hours: Wednesday mornings, 7am - 8:30am No appointments. First come, first served. . [email or web address] documented in this [facility] Hospital Discharge instructions* Discharge Instructions* Wendy AlstonELYSIA-CHURCH MUSICIAN - 07/24/2022 4:14 PM EST Please take these discharge instructions to your primary care doctor follow appointment to show them,keep them for your reference and refer to them often for follow up appointments.It is best to write your appointments on a personal calendar so you do not miss them,call if you need to change any appointments please. Education: What are the most common symptoms of stroke? The following are the most common symptoms of stroke. However, each individual may experience symptoms differently. If any of these symptoms are present, call 911 (or your local ambulance service) immediately. Treatment is most effective when started immediately. Symptoms may be sudden and include: -Weakness or numbness of the face, arm, or leg, especially on one side of the body -Confusion or difficulty speaking or understanding -Problems with vision such as dimness or loss of vision in one or both eyes -Dizziness or problems with balance or coordination -Problems with movement or walking -Severe headaches with no other known cause, especially if sudden onset All of the above warning signs may not occur with each stroke. Do not ignore any of the warning signs, even if they go away - take action immediately. The symptoms of stroke may resemble other medical conditions or problems. Always consult your physician for a diagnosis We have provided both written and verbal education to the patient and family regarding ischemic andhemorrhagic strokes. We have discussed the warning signs/symptoms as well as causes of stroke. We have discussed the importance of activating 911/EMS in the event of these symptoms. We have reviewed the patient's personal risk factors as well as education on reducing these risk factors. [facility] Personalized Stroke Treatment Plan My Stroke Type: [] Ischemic Stroke (Blockage of blood flow to the brain) [x] Hemorrhagic Stroke (Bleeding in the brain) [] TIA- Transient Ischemic Attack (mini-stroke) My Risk Factors Include: [x] High Blood Pressure [] Diabetes [] High Cholesterol [] Heart Disease [] Atrial Fibrillation (Irregular Heart Rate) [x] Smoking [] Obesity [] Clotting Disorder [] Alcohol Abuse [] Drug Abuse [] Prior History [] Family History [] Obstructive Sleep Apnea My Follow-Up Treatment Goals: [x] Blood Pressure < 140/90 [x] Stop Smoking Immediately [] LDL < 70 [] HgA1C levels <7% [] Decrease BMI to <25 [x] Take all ordered medications [x] Avoid non-prescription or over the counter medication not cleared by your physician [x] Limit Alcohol use to no more than 1 drink per day for females and 2 drinks per day for males [] Do not drive until cleared [x] Follow up with PCP within a week of discharge to home [x] Follow-up with Neurovascular [x] Follow-up with Occupational,physical and speech therapy if ordered [x] Watch out for depression and seek treatment if needed CONTACTS FOR NEUROVASCULAR SERVICE: - You may call your neurovascular doctors office at [phone], if you have questions between 8:30 am and 4:30 pm. - For off hours or the weekend you may call the office or the hospital sanding line operator at and ask for the stroke resident bone drier to be paged. - If you have any questions or needs, please call Zuri Fernandez RN, stroke j2ee programmer at [phone] Mon-Wed from 01-25 ? Any questions concerning your discharge instructions please call Case Management Office [phone] Patient Stroke Resources: [facility] Stroke Support The [facility] Stroke Support Group is for stroke survivors, friends, andfamily members. Meets every Wednesday from 12:00PM to 1:00PM at [facility]), [address] [place] [address]. [address] Dr. Jacque Lopez, at [phone]. If you are outside of the [facility], contact The [place] [employer]roke Association at www.strokeassociation.org or 5-376-6-stroke, or for supports groups in your area. Also refer to the Stroke Education booklet you received as part of your stroke education while you were a patient for additional resources Additional Contacts: Evening and Weekend Contacts If you have questions or concerns during evening, weekend, or holiday hours, please call: -[facility] and [facility] sanding line operator at [phone]. -[facility] sanding line operator at [phone] Ask the sanding line operator to page the on-call doctor for Neurovascular service, they were responsible for your care while you were in the hospital. If you having an emergency, call 911. *In the event of an Emergency: If you have a physical or psychiatric emergency call 911 or go to your local emergency department. You should also call your outpatient provider's emergency number. Other reference numbers: [facility] Intake Office at 502-782-1905; [facility] at 852-428-8502; or Suicide Prevention Hotline at 523-782-9536. *Helpful phone numbers: Free Crisis Hotline: 4-554-784-TALK ( ) Suicide Hotline: 235.834.6062 Seniors Suicide Hotline: 555.848.1558 [facility] Youth: 650.335.2042 Mental Health of Jessica: 791.590.2954 (free counseling) [facility] Access Hotline: 711-691-IHIO (446-060-1491) 24-hour crisis text hotline: Text the word 4hope to 460-356 for crisis support. Texting this number is free if you have [employer], [employer], AT&T or Sprint. [facility] Financial Assistance: If you want to learn more about these programs, please call .There are three programsto help you with the cost of your medical care: Medicaid, Hospital Care Assurance Program (HCAP) & jen If you are without Insurance and believe you may qualify for Medicaid/public assistance: The [facility] Department of Job and Family Services can now process hurtado (TANF), food (SNAP) and Medicaid Applications over the phone. Please call [phone] (7875) and apply over the phone or apply online at www.benefits.[place].gov. Wednesday-Wednesday 8am-12pm noon. Medication Assistance Programs [employer] members can buy 100+ common prescriptions for FREE, $3 or $6. Annual membership is $36 for individuals and $72 for families (up to 6 people, including pets). Sign up online or enroll at your nearest pharmacy! -[employer], web site can provide a significant number of coupons for medications at a much lower gonzalez. * Medications* RADHA Sanford - 07/24/2022 4:12 PM EST Know your medicines Make sure you know why you are taking each medicine. Make a master list of all your medicines. Write down the medicine names and doctors' names. Includedoses and side effects too. And write down why you take each medicine. Include all prescription rnqhefg-arm-zsxnorh medicines, vitamins, and supplements. Keep this list up to date. Take a copy to each doctor visit. Know when you will run out of each medicine. Ask your pharmacist if there are ways the drugstore can remind you to refill your medicines so you do not run out. Write refill reminders on your calendar. Don't wait until you have a few pills left. Ask your pharmacist to plan your refills so that you can peanut picker all your medicines at the same time. This can mean fewer trips to the drugstore. If we have prescribed you a new medication during your stay, please contact with your primary physician for refills * Discharge Instr - Activity* RADHA Sanford - 07/24/2022 4:12 PM EST Activity -- Please follow these instructions: -Advance your activity as you can tolerate - You may walk all you want. You may go up and down the steps. Use the railing for support - It is normal for your energy level and sleep patterns to change after a stroke - Take rest periods during the day as needed - Complete recovery may take several weeks, months, up to a year. Patience is mchugh. * Discharge Instr - Diet* RADHA Sanford - 07/24/2022 4:13 PM EST Current Diet Orders Procedures DIET REGULAR Standing Status: Standing Number of Occurrences: 1 * Discharge Instr - Notify* Lilli Quinones - 07/15/2022 11:37 AM EST You should establish care with PCP There are several free clinics in [facility]. You can locate them by going to Free Clinics Free Medical Clinics [facility] Clinics LIST OF LOCAL FREE AND LOW COST CLINICS: Wednesday Clinic [facility] (formerly known as [facility]) Description: Free walk-in clinic. No appointment needed. Photo ID required. Does not provide on-going care, work, school or sports physicals. Must be [facility] resident. In collaboration with [facility], there is free HIV/STI screening every Wednesday night. Location: [facility], [address] [place] [address] Hours: Wednesday evenings. Registration begins at 5 pm. Please don t come before 5 pm. There is no clinic on holidays or when [facility] is closed. or [email or web address] [facility] Please arrive at 5:30, first come first serve. We can facilitate lab work and referrals to other free specialists. Location: [facility] [place] [address] Hours: & Wednesday evenings. 12 patients seen on a first come, first served basis. Patients must sign in between 6 and 7 pm. , ext. [phone]. Wednesday Clinic [facility] Description: Free walk-in clinic. Ani based. Cooperative effort of [facility]. The [facility] functions like an urgent care service offering school and sports physicals. Doctors can write prescriptions but are unable to offer suturing or injections. Location: [facility], [address] [place] [id number] Hours: & Wednesday of every month, 6-8 pm. Wednesday Clinic [facility] Description: 6:30pm-8:30pm EVERY Wednesday night. We have a medical doctor and nurses available. Prescriptions can be written and we give $4 gift cards to purchase one month s supply of prescriptions. We do not do narcotic drugs, nor do we have any drugs at the clinic. -6:30 to 8:30 PM EVERY Wednesday. Free care clinic EVERY Wednesday. We offer free testing, free ultrasound, and free classes. We also mentor mothers and host families. -Wednesday only: Vision services available as is legal, financial reporting accountant, computer repair and taxes (Aug-Oct). We also offer free bicycle repair, donated bicycles (when available), dog obedience training (November-Apr) on clinic night, and free computer repair. A person can only attend ONE clinic on a Wednesday night. Location: [address] [place] [address] Hours: Wednesday of the month, 6:30pm - 8:30 pm. No appointments necessary. . People are served on first come first serve basis. Clinic [facility] Description: Patients order of service is based upon their needs. Provides medical care, chiropractic, WORK and school PHYSICALS ONLY on Wednesday clinics, counseling, vision & dental referrals, diabetes screening and foot checks, patient education, medication & lab services for [employer] [employer] patients, [employer], social service technician & spiritual guidance. TB testing on Wednesdays before Wed clinics. See online schedule. Donations accepted. Interpreters available if you call ahead. Location: [address] [place] [id number] Hours: 2 Fridays and 2 a month. Call [phone] to find out the clinic dates or check the calendar on our website at [email or web address]. Registration starts at 2:30 pm. , email: [email or web address] Description: Free walk-in clinic that does provide on-going care. Hours: evenings only. 25-45 patients seen on first come first served basis. Sign-up sheet posted from 7:00 am - 4:30 pm. The sign-up sheet is posted on the garage level outside the glass entrance doors. Patients must sign up and then return at 4:30 pm. Names from the sign-up sheet are called at 4:30 pm on the 2nd floor. Patient must be present when name is called in order to be seen. Patients will begin to be seen at 5:45 pm. This clinic does not provide immunizations, pain medications, physical exams, STD, HIV or TB testing, or care. (See pgs 8, 14 & 15 for information about [facility] clinics that provide those services). We only see returning patients once every 4 weeks. Location: [address] [place] [address] or [email or web address] Wednesday Clinic [facility] [place] Description: Free clinic for adults over eighteen at or below 200% of poverty level who are uninsured, under-insured and looking for a medical home. Ani based. Patients order of service is based upon their needs. Provides medical care, chiropractic, WORK and school PHYSICALS ONLY on Wednesday clinics, counseling, vision & dental referrals, diabetes screening and foot checks, patient education,medication & lab services for [employer] patients, [employer], social service technician & spiritual guidance. TB testing on Wednesdays before Wednesday clinics. See online schedule. Donations accepted. Interpreters available if you call ahead. Location: [address] [place] [address] Hours: 2 Fridays and 2 a month. Call [phone] to find out the clinic dates or check the calendar on our website at [email or web address]. Registration starts at 2:30 pm. , email [email or web address] Wednesday Clinic [facility] Description: Free walk-in clinic. Ani based. Location: [address] [place] [address] Hours: Wednesday mornings, 9am - 12pm . Wednesday Clinic [facility] Description: Free walk-in clinic for the working poor and homeless sponsored by [facility]. Breakfast is offered at 6:30 am. Free clothing room is also available on Tuesdays andWednesdays from 9-11:15am. Ani based. Spiritual guidance offered. No physicals or lab work provided. Location: [address] [place] [address] Hours: Wednesday mornings, 7am - 8:30am No appointments. First come, first served. . [email or web address] documented in [facility] Note* Plan of Care - BETH Alcantara - 07/24/2022 9:48 AM EST Inpatient rehab has been recommended. However, patient does not have insurance and could only go torehab if he is able to pay out of pocket. Lata JEWELL International Sales Representative [facility]12-30-2022 Note* Plan of Care - BETH Alcantara - 07/24/2022 9:48 AM EST Inpatient rehab has been recommended. However, patient does not have insurance and could only go torehab if he is able to pay out of pocket. Lata JEWELL International Sales Representative [facility]12-30-2022 Note* Plan of Care - Patrice Cash RN - 07/24/2022 6:57 AM EST Was sitter at bedside during evening. Neuro assessment unchanged. Restless in beginning of evening but did become more calm. Walked x4 in hallway. [place] in place. Problem: Patient Care Overview Goal: Plan of Care Review Outcome: Met This Shift Goal: Individualization & Mutuality Outcome: Met This Shift Problem: Stroke (Hemorrhagic) (Adult) Goal: Signs and Symptoms of Listed Potential Problems Will be Absent, Minimized or Managed (Stroke) Description: Signs and symptoms of listed potential problems will be absent, minimized or managed by discharge/transition of care (reference Stroke (Hemorrhagic) (Adult) CPG). Outcome: Met This Shift Problem: Confusion, Acute (Adult) Goal: Identify Related Risk Factors and Signs and Symptoms Description: Related risk factors and signs and symptoms are identified upon initiation of Human Response Clinical Practice Guideline (CPG) Outcome: Met This Shift Problem: Fall/Trauma/Injury Risk (Adult) Goal: Fall/Trauma/Injury Risk: Absence of Trauma/Injury/Falls Description: Patient will demonstrate the desired outcomes. Outcome: Met This Shift Problem: Urine Elimination Impaired (Adult) Goal: Identify Related Risk Factors and Signs and Symptoms Description: Related risk factors and signs and symptoms are identified upon initiation of Human Response Clinical Practice Guideline (CPG) Outcome: Met This Shift Problem: Patient Care Overview Goal: Discharge Needs Assessment Outcome: Ongoing Goal: Interdisciplinary Rounds/Family Conf Outcome: Ongoing Problem: Confusion, Acute (Adult) Goal: Cognitive/Functional Impairments Minimized Description: Patient will demonstrate the desired outcomes by discharge/transition of care. Outcome: Ongoing Goal: Safety Description: Patient will demonstrate the desired outcomes by discharge/transition of care. Outcome: Ongoing Problem: Urine Elimination Impaired (Adult) Goal: Effective Urinary Elimination Description: Patient will demonstrate the desired outcomes by discharge/transition of care. Outcome: Ongoing Goal: Effective Containment of Urine Description: Patient will demonstrate the desired outcomes by discharge/transition of care. Outcome: Ongoing Goal: Reduced Incontinence Episodes Description: Patient will demonstrate the desired outcomes by discharge/transition of care. Outcome: Ongoing [facility]12-30-2022 Note* Plan of Care - Patrice Cash RN - 07/24/2022 6:57 AM EST Was sitter at bedside during evening. Neuro assessment unchanged. Restless in beginning of evening but did become more calm. Walked x4 in hallway. [place] in place. Problem: Patient Care Overview Goal: Plan of Care Review Outcome: Met This Shift Goal: Individualization & Mutuality Outcome: Met This Shift Problem: Stroke (Hemorrhagic) (Adult) Goal: Signs and Symptoms of Listed Potential Problems Will be Absent, Minimized or Managed (Stroke) Description: Signs and symptoms of listed potential problems will be absent, minimized or managed by discharge/transition of care (reference Stroke (Hemorrhagic) (Adult) CPG). Outcome: Met This Shift Problem: Confusion, Acute (Adult) Goal: Identify Related Risk Factors and Signs and Symptoms Description: Related risk factors and signs and symptoms are identified upon initiation of Human Response Clinical Practice Guideline (CPG) Outcome: Met This Shift Problem: Fall/Trauma/Injury Risk (Adult) Goal: Fall/Trauma/Injury Risk: Absence of Trauma/Injury/Falls Description: Patient will demonstrate the desired outcomes. Outcome: Met This Shift Problem: Urine Elimination Impaired (Adult) Goal: Identify Related Risk Factors and Signs and Symptoms Description: Related risk factors and signs and symptoms are identified upon initiation of Human Response Clinical Practice Guideline (CPG) Outcome: Met This Shift Problem: Patient Care Overview Goal: Discharge Needs Assessment Outcome: Ongoing Goal: Interdisciplinary Rounds/Family Conf Outcome: Ongoing Problem: Confusion, Acute (Adult) Goal: Cognitive/Functional Impairments Minimized Description: Patient will demonstrate the desired outcomes by discharge/transition of care. Outcome: Ongoing Goal: Safety Description: Patient will demonstrate the desired outcomes by discharge/transition of care. Outcome: Ongoing Problem: Urine Elimination Impaired (Adult) Goal: Effective Urinary Elimination Description: Patient will demonstrate the desired outcomes by discharge/transition of care. Outcome: Ongoing Goal: Effective Containment of Urine Description: Patient will demonstrate the desired outcomes by discharge/transition of care. Outcome: Ongoing Goal: Reduced Incontinence Episodes Description: Patient will demonstrate the desired outcomes by discharge/transition of care. Outcome: Ongoing [facility]12-29-2022 History of Present illness Narrative* Lilli Quinones - 07/23/2022 3:36 PM EST Progression of Care Note Expected Discharge Date: tbd Medical Milestones Remaining: oriented to self, agitated and delirious syncopal episode today, HeadCT stable Assessment and Discharge Plan as of 07/23/2022 3:36 PM Pt with no insurance- messages sent to financial last week - they report pt is over income for medicaid and would start SBO/HCAP uday. Message sent again today re status update. Anticipated discharge disposition: Inpatient Rehab Facility Anticipated Services at Discharge: Senior Care, Occupational Therapy, Physical Therapy, Outpatient follow up, Speech Therapy Barriers to Discharge: Complex Disposition, Uninsured/Underinsured Explanation of Barriers: medical care, level of care tbd Readmission Risk Score Risk of Readmission: 5 Category Reference: High:16-100 Mod-High:10-16 Mod-Low: 5-10 Low: 0-5 * Cathleen Manuel OT - 07/23/2022 2:34 PM EST Acute Occupational Therapy Treatment Prior to Admission AM-PAC Score: PRIOR LEVEL AM-PAC Activity Raw Score: 24 PRIOR LEVEL AM-PAC Mobility Raw Score: 24 Current AM-PAC score(s): CURRENT AM-PAC Activity Raw Score: 6 Based on the above AM-PAC score(s), and OT clinical judgment, discharge destination recommendation is: Inpatient Rehab Facility Supporting Factors (would benefit from skilled therapy services): Patient status is anticipated to be appropriate to tolerate inpatient rehab therapy requirements at time of discharge from acute care, Recent decline in functional mobility, Fall risk, Recent decline in cognitive function, Recent decline in self-care abilities, Assistance needed with functional mobility, Impaired functional status,Impaired balance, Decreased endurance Mobility equipment available at home: none used ADL equipment available at home: none Equipment recommendations for discharge: to be determined Current therapy frequency recommendation(s) in acute: 5 times a week Precautions and Weightbearing Status: OT Existing Precautions/Restrictions: fall (AMS) Urinary catheter Patient Safety Communication Prior to Visit: Nursing Subjective: Pt alert. Attempting to roll himself out of bed with 2 RN present upon therapy arrival. RN reporting pt appears to be requiring increased assist with mobility and is intermittently restless. Pain: General Pain Documentation (Adult, OB, Peds) Presence of Pain: non-verbal indicator of pain/discomfort present Pain Location: back, head CPOT (Critical-Care Pain Observation Tool) Facial Expression: grimacing Body Movements: restlessness Muscle Tension: very tense or rigid Vocalization (Extubated Patients): sighing, moaning CPOT Score (0-8): 7 Objective/Observation: Vitals/Vitals Responses to Treatment: VSS (numbers stable). However, pt with episode of unresponsiveness when seated EOB after severe buckling/twitching in standing position. Pt with eyes open but no verbalizations/responses to stimuli. RN present and ERT called. Pt dependently returned to supine, regaining responsiveness in supine as team assessed him. Respiratory Status O2 Device: room air Cognition Overall Cognitive Status: Impaired Arousal/Alertness: Inconsistent responses to stimuli Orientation Level: Oriented to person Following Commands: Follows commands 25-50% of the time Safety Judgment: Decreased awareness of need for safety, Decreased awareness of need for assistance Awareness of Errors: Decreased awareness of errors Deficits: Not aware of deficits Attention Span: Difficulty attending to directions Extremity Assessments: See OT Evaluation flowsheet for Extremity Measurement updates. Balance: Sitting Balance Static Sitting-Level of Assistance: Maximum assistance (2 person) Dynamic Sitting-Level of Assistance: Dependent (2 person) Sitting Balance Skilled Intervention/Details: Pt with very poor sitting balance (fluctuates). Pt with sway in all directions, poor awareness of position in space. Standing Balance Static Standing-Level of Assistance: Maximum assistance, 2-person assist Dynamic Standing-Level of Assistance: Dependent, 2-person assist Standing Balance Skilled Intervention/Details: Pt tolerates less than ~30-60 seconds in standing. Severe buckling. Episodes of twitching, shouting/grimacing (coupled with throwing self posteriorly/retropulsion). Impulsively tries to stand when alert. Mobility Assessment/Intervention: Supine to Sit Mobility [place] Level: Supine->Sit: maximum assist (25% patient effort) Physical Assist: Supine->Sit: 2 person assist Bed Features/Set-up: Supine->Sit: Flat Skilled Rationale: Positioning, Sequencing, Verbal cues, Technique of activity, Cues for increased safety, Initiation and execution of task Skilled Intervention/Details: Supine->Sit: Pt with difficulty initiating/following commands. Requires increased assist for safety as well d/t intermittent restlessness. Pt assisted with bringing LE over EOB and propelling trunk to upright. Retropulsion noted upon reaching seated position. Sit to Supine Mobility [place] Level: Sit->Supine: dependent (less than 25% patient effort) Physical Assist: Sit->Supine: 2 person assist Bed Features/Set-up: Sit->Supine: Flat Skilled Intervention/Details: Sit->Supine: Pt with episode of non- responsiveness. Returned to supine for safety. Transfer Assessment/Intervention: Sit to Stand Transfer [place] Level: Sit->Stand: maximum assist (25% patient effort) Physical Assist: Sit->Stand: 2 person assist Assistive Device: Sit->Stand: gait belt, hand held assist Skilled Rationale: Verbal cues, Arm in arm, Patellar block, Positioning, Sequencing, Full extensionto upright positioning/posture, Technique of activity, Upright gaze/neck extension, Cues for increased safety, Initiation and execution of task Skilled Intervention/Details: Sit->Stand: Pt completes x2 stands from EOB. Pt with poor ability to correct posture. Intermittent severe knee buckling, requiring totalA to block. Unable to tolerateprolonged standing. Fluctuating (mild to severe) sway in all directions. Stand to Sit Transfer [place] Level: Stand->Sit: dependent (less than 25% patient effort) Physical Assist: Stand->Sit: 2 person assist Assistive Device: Stand->Sit: gait belt, hand held assist Skilled Intervention/Details: Stand->Sit: Pt requires totalA to return safely to seated positiond/t severity of buckling. Unable to control descent. Outcome Score(s): CURRENT [facility] Daily Activity Inpatient Short Form Putting on/Taking Off Lower Body Clothin - Total Assistance Bathin - Total Assistance Toiletin - Total Assistance Putting on/Taking Off Upper Body Clothin - Total Assistance Groomin - Total Assistance Eatin - Total Assistance CURRENT [facility] Activity Raw Score: 6 CURRENT [facility] Activity Functional Limitation/Modifier: 100.00% Currently Impaired in Daily Activity Currently Impaired in Daily Activity - CN Interventions: Pt's functional status declining during status. Pt demonstrating progressively worse postural control and severe knee buckling. Extreme twitching and poor balance. Shouting/grimacing (appears to be in pain). Impulsive/restless at times. Attempted to block knees as much as possible to keep pt safety. Seated EOB, pt then hanging head anteriorly, becoming unresponsive/no verbalizations. Pt immediately returned dependently to supine for safety. RN present, called ERT. Pt regaining responsiveness once in supine position, team present to assess. Assessment & Plan: Pt with decreased ability to participate in therapy session this date as described above. Pt continues to be limited cognition, arousal, balance, weakness, and activity tolerance/endurance. Pt would benefit from continued skilled therapy services to promote independence and safety with functional mo bility and basic ADL tasks. Will continue to work with pt as safely able. Patient Instruction/Education this session: Patient Instruction: today's treatment plan Plan for next session: continue OT plan of care; progression of all functional participation in ADLs/mobility Acute OT Goals Plan of Care by Cathleen Manuel OT at 07/23/2022 2:18 PM Version 1 of 1 Problem: OT - Cognition Goal: Cognition simple ADL Description: Pt will demonstrate improved cognition, completing simple ADL task for 10 minutes withno more than 2 cues required to maintain attention, for improved safety and success at discharge destination. Outcome: Ongoing Problem: OT - Balance Goal: Balance - Standing Description: Pt will perform 10 minutes of functional ADL task in standing with supervision and no major LOB to promote safety and improved balance required for self-care activities. Outcome: Ongoing OT treatment consisted of balance training and transfer training to work and progress towards abovegoal(s). Treating Therapist: Cathleen Manuel OT Additional Details: Co-evaluation/co-treatment performed?: Yes, simultaneous billable skilled care This co-treatment session performed between OT and PT was beneficial, necessary and provided distinct services in progressing this person's individual plan of care. Medical complexity with functionaldeficits that necessitate two skilled therapy disciplines working concurrently to optimize patient's progress towards each discipline's goals. This co-treatment was medically necessary due to patient's: Postural control. Patient benefits from simultaneous treatment from another therapy discipline to maximize progress towards functional mobility and basic ADL task Occupational Therapy goals. I was assisted by Lisa and RN for today's session. I used facemask, protective eye shield, and gloves in today's patient interaction. Patient location at end of session: bed with head of bed elevated Alarms on at end of session: RN aware and team present d/t ERT being called Needs in reach. Time In: 1134 Time Out: 1149 Total Visit Time: 15 minutes Total Treatment Time (skilled, billable minutes): 15 minutes Upon discontinuation of Acute Care Occupational Therapy Services or patient discharge from the hospital this note represents the current Occupational Therapy Discharge Summary. * MIGUEL A Gutiérrez - 07/23/2022 12:21 PM EST Speech Language Pathology Attempt Note 07/23/2022 MICROBIOLOGICAL LAB TECHNICIAN Therapy Completed: Attempted Attempted Reason: Patient is unavailable due to test/procedure. Pt off the floor for CT. Will re-attempt as able/appropriate. MIGUEL A Gutiérrez Time In: 1220 Time Out: 1220 Total Visit Time: 0 minutes Total Treatment Time (skilled, billable minutes): 0 minutes * Lisa Balbuena, PT - 07/23/2022 11:49 AM EST Acute Physical Therapy Treatment Prior to Admission [facility] score(s): PRIOR LEVEL AM-PAC Mobility Raw Score: 24 PRIOR LEVEL AM-PAC Activity Raw Score: 24 Current AM-PAC score(s): CURRENT AM-PAC Mobility Raw Score: 6 Based on the above AM-PAC score(s) and PT clinical judgment, patient is a good candidate for discharge to Inpatient Rehab Facility (Potential to progress to home with initial 24 hour supervision and assist, and OP PT.) Supporting Factors (would benefit from skilled therapy services): Impaired functional status, Impaired balance, Decreased endurance necessitating skilled therapy services, but able to tolerate therapy requirements for inpatient rehab, Impaired cognitive status, Assistance needed with functional mobility, Fall risk Mobility equipment available at home: none used ADL equipment available at home: none Equipment needed for discharge: to be determined Current therapy frequency recommendation in acute: Therapy Frequency: 5 times a week Precautions and Weightbearing Status: Existing Precautions/Restrictions: fall Urinary catheter Patient Safety Communication Prior to Visit: Nursing Subjective: Pt impulsively attempting to exit his bed with RN x2 present on arrival. Agreeable to Physical Therapy. RN reports increased restlessness today. Pain: General Pain Documentation (Adult, OB, Peds) Presence of Pain: non-verbal indicator of pain/discomfort present Pain Location: back, head CPOT (Critical-Care Pain Observation Tool) Facial Expression: grimacing Body Movements: restlessness Muscle Tension: very tense or rigid Vocalization (Extubated Patients): sighing, moaning CPOT Score (0-8): 7 Objective/Observation: Vitals/Vitals Responses to Treatment: VSS Pt with episode of unresponsiveness when seated EOB, eyes open, no verbalizations. RN present. ERT called by RN. Respiratory Status O2 Device: room air Cognition Overall Cognitive Status: Impaired Arousal/Alertness: Inconsistent responses to stimuli Orientation Level: Oriented to person Following Commands: Follows commands 25-50% of the time Safety Judgment: Decreased awareness of need for assistance, Decreased awareness of need for safety Awareness of Errors: Decreased awareness of errors Deficits: Not aware of deficits Attention Span: Difficulty attending to directions, Difficulty dividing attention Extremity Assessments: See PT Evaluation flowsheet for Extremity Measurement updates. Skin and Edema: Balance: Sitting Balance Static Sitting-Level of Assistance: Maximum assistance (x2) Dynamic Sitting-Level of Assistance: Dependent (x2) Skilled Rationale: Hand placement, Verbal cues, Tactile cues, Facilitate anterior shift, Full extension to upright positioning/posture, Cues for increased safety Sitting Balance Skilled Intervention/Details: Impulsively attempting to stand, restless when seatedEOB. Jerking movements with shouting as if in pain, but unable to verbalize what is happening. Standing Balance Static Standing-Level of Assistance: Maximum assistance, 2-person assist Dynamic Standing-Level of Assistance: Dependent, 2-person assist Standing-Balance Support: Gait belt, Bilateral hand held assist Skilled Rationale: Hand placement, Verbal cues, Tactile cues, Facilitate anterior shift, Full extension to upright positioning/posture, Technique of activity, Initiation and execution of task, Cues for increased safety Standing Balance Skilled Intervention/Details: Static standing 2xless than 60 seconds with bilat hand-held assist, blocking of bilat knees to prevent buckling. Pt continues to exhibit jerking movements with shouting as if in pain followed by buckling of bilat LEs. Returned to sitting. Mobility Assessment/Intervention: Supine to Sit Mobility [place] Level: Supine->Sit: maximum assist (25% patient effort) Physical Assist: Supine->Sit: 2 person assist Bed Features/Set-up: Supine->Sit: Flat Skilled Rationale: Positioning, Sequencing, Hand placement, Verbal cues, Tactile cues, Technique ofactivity, Initiation and execution of task, Cues for increased safety Skilled Intervention/Details: Supine->Sit: Unable to follow commands consistently requiring Max Ax2 to advance LEs off EOB and bring trunk to upright. Intermittently retropulsive in sitting. Sit to Supine Mobility [place] Level: Sit->Supine: dependent (less than 25% patient effort) Physical Assist: Sit->Supine: 2 person assist Bed Features/Set-up: Sit->Supine: Flat Skilled Intervention/Details: Sit->Supine: Pt with non-responsive episode while seated EOB and Dependently returned to supine. Transfer Assessment/Intervention: Sit to Stand Transfer [place] Level: Sit->Stand: maximum assist (25% patient effort) Physical Assist: Sit->Stand: 2 person assist Assistive Device: Sit->Stand: gait belt, hand held assist Skilled Rationale: Positioning, Sequencing, Hand placement, Verbal cues, Tactile cues, Arm in arm, Patellar block, Facilitate anterior shift, Full extension to upright positioning/posture, Technique of activity, Initiation and execution of task, Cues for increased safety Skilled Intervention/Details: Sit->Stand: x2 from EOB with bilat arm-in-arm assist and bilat knees blocked to prevent buckling. Posterior lean requiring verbal and tactile cues and increased physical assist to correct. Stand to Sit Transfer [place] Level: Stand->Sit: dependent (less than 25% patient effort) Physical Assist: Stand->Sit: 2 person assist Assistive Device: Stand->Sit: gait belt, hand held assist Skilled Intervention/Details: Stand->Sit: Pt dependently assisted into sitting when not responding to verbal commands to return to sitting. Gait/Functional Mobility Assessment/Intervention: Stairs Assessment/Intervention: Outcome Score(s): [facility]RENT [facility] Basic Mobility Inpatient Short Form Turning over in bed: 1 - Total Assistance Sitting/standing from chair: 1 - Total Assistance Moving from lying on back to sittin - Total Assistance Moving to and from bed to chair: 1 - Total Assistance Walk in hospital room: 1 - Total Assistance Climbing 3-5 steps with a railin - Total Assistance [facility] Mobility Raw Score: 6 [facility]RENT [facility] Mobility Functional Limitation/Modifier: 100.00% Currently Impaired in Basic Mobility Currently Impaired in Basic Mobility - CN Interventions: Assessment & Plan: Pt demos declined in performance of functional mobility. Increased restlessness and increased need for physical assist with functional mobility. Jerking movement episodes with associated yelling out as if in pain. Unable to verbalize if pt experiencing pain. Episode of unresponsiveness while seatedEOB and dependently returned to supine. RN present and called an ERT. Pt responsiveness once returned to supine. Pt continues to benefit from skilled PT services to address strength, balance, activity tolerance, postural control, and cognition as they relate to overall performance of functional mobility. Patient Instruction/Education this session: Repositioning, OOBTC as appropriate Plan for next session: Progress all functional mobility and balance activities. Acute PT Goals Plan of Care by Lisa Balbuena PT at 07/23/2022 11:49 AM Version 1 of 1 Problem: PT - Balance/Coordination/Neuro Re-Education Goal: Standing Dynamic/Static Balance Description: Pt will perform standing balance tasks for 15 minutes with supervision with out an assistive device in order to improve functional mobility and safety with standing tasks. Outcome: Ongoing Problem: PT - Transfers Goal: Supine <-> Sit Description: Pt will perform bed mobility with flat bed & no rail with independence in order toimprove functional mobility and safety. Outcome: Ongoing Goal: Sit <-> Stand Description: Pt will perform sit to/from stand transfers with supervision with out an assistive device in order to improve functional mobility and safety. Outcome: Ongoing Lisa Balbuena PT, DPT License #: [id number] Pager #: [phone] PT treatment consisted of Therapeutic Activity to work and progress towards above goal(s). Treating Therapist: Lisa Balbuena PT Additional Details: Co-evaluation/co-treatment performed?: Yes, simultaneous billable skilled care This co-treatment session performed between PT and OT was beneficial, necessary and provided distinct services in progressing this person's individual plan of care. Medical complexity with functionaldeficits that necessitate two skilled therapy disciplines working concurrently to optimize patient's progress towards each discipline's goals. This co-treatment was medically necessary due to patient's: Cognitive issues, Coordination issues, Postural control, Alertness/arousal and Functional communication (writing/device/speaking valve). Patient benefits from simultaneous treatment from another therapy discipline to maximize progress towards all Physical Therapy goals. I used facemask, protective eye shield, and gloves in today's patient interaction. Patient location at end of session: bed with head of bed elevated Alarms on at end of session: RN present Needs in reach. Time In: 1134 Time Out: 1149 Total Visit Time: 15 minutes Total Treatment Time (skilled, billable minutes): 15 minutes Upon discontinuation of Acute Care Physical Therapy Services or patient discharge from the hospitalthis note represents the current Physical Therapy Discharge Summary. * Dean Linton PT - 07/22/2022 10:38 AM EST Physical Therapy Attempt Note 07/22/2022 PT Therapy Completed: Attempted Attempted Reason: Patient is not medically optimized to tolerate therapy program (per RN, not appropriate) Dean Lintno PT Time In: 1038 Time Out: 1038 Total Visit Time: 0 minutes Total Treatment Time (skilled, billable minutes): 0 minutes * Cathleen Manuel OT - 07/22/2022 9:35 AM EST Occupational Therapy Attempt Note 07/22/2022 OT Therapy Completed: Attempted Attempted Reason: Patient with increased agitation overnight/this morning. RN reporting that pt is sleeping soundly at this time, requests to hold for the morning. Will re-attempt as able/appropriate. Cathleen Manuel OT Time In: 0935 Time Out: 0935 Total Visit Time: 0 minutes Total Treatment Time (skilled, billable minutes): 0 minutes * MIGUEL A Martínez - 07/22/2022 8:33 AM EST Acute Care Speech-Language Pathology Attempt Note 07/22/2022 [employer] TECHNICIAN Therapy Completed: Attempted Attempted Reason: Patient is not medically optimized to tolerate therapy program. Will re-attempt as able/appropriate. MIGUEL A Martínez Time In: 08 Time Out: 0833 Total Visit Time: 0 minutes Total Treatment Time (skilled, billable minutes): 0 minutes * Cathleen Manuel OT - 07/21/2022 9:49 AM EST Acute Occupational Therapy Treatment Prior to Admission AM-PAC Score: PRIOR LEVEL AM-PAC Activity Raw Score: 24 PRIOR LEVEL AM-PAC Mobility Raw Score: 24 Current AM-PAC score(s): CURRENT AM-PAC Activity Raw Score: 17 Based on the above AM-PAC score(s), and OT clinical judgment, discharge destination recommendation is: Inpatient Rehab Facility Supporting Factors (would benefit from skilled therapy services): Patient status is anticipated to be appropriate to tolerate inpatient rehab therapy requirements at time of discharge from acute care, Recent decline in functional mobility, Fall risk, Recent decline in cognitive function, Recent decline in self-care abilities, Assistance needed with functional mobility, Impaired functional status,Impaired balance, Decreased endurance Mobility equipment available at home: none used ADL equipment available at home: none Equipment recommendations for discharge: to be determined Current therapy frequency recommendation(s) in acute: 5 times a week Precautions and Weightbearing Status: OT Existing Precautions/Restrictions: fall ([place]) Patient Safety Communication Prior to Visit: Nursing Subjective: Pt alert and agreeable to participate. Supine upon arrival. Notes he is looking forward to getting up to walk/exercise. Pain: General Pain Documentation (Adult, OB, Peds) Presence of Pain: complains of pain/discomfort Pain Location: head (no numerical rating) Objective/Observation: Vitals/Vitals Responses to Treatment: stable Respiratory Status O2 Device: room air Cognition Overall Cognitive Status: (at-risk) Arousal/Alertness: Appropriate responses to stimuli Orientation Level: Oriented to person (correctly states month/year but reads room whiteboard; unable to name place but correctly states building type as hospital) Following Commands: Follows one step commands without difficulty, Follows one step commands with repetition, Follows one step commands with increased time Safety Judgment: Decreased awareness of need for assistance, Decreased awareness of need for safety Awareness of Errors: Assistance required to correct errors made, Decreased awareness of errors Deficits: Decreased awareness of deficits Attention Span: Attends with cues to redirect Memory: Decreased recall of recent events, Decreased recall of biographical information Problem Solving: Assistance required to implement solutions Details: pt distractible at times, increased difficulty with dual tasking during functional mobility; some repetition/perseveration of already completed grooming tasks ADL Assessment/Intervention: Grooming Assistance: Minimal Grooming Location: standing at sink Grooming Deficit: Increased time to complete, Generalized weakness, Activity tolerance, Balance, Retrieval of items, Oral care, Sequencing, Initiation Grooming Skilled Rationale (Verbal/Tactile/Visual/Demonstration): Cues for increased safety, Technique of activity, Setup, Supervision, Cues for cognitive deficit, Facilitate postural control, Facilitate positioning Grooming Intervention/Details: Pt standing at sink for ~5-8 minutes this date to complete oral care/denture care task. Pt using UE support on counter frequently, increased instability when removing all UE support. Pt with noted anterior/posterior sway with decreased awareness of body position in space. As pt fatiguing, increased difficulties with maintaining balance (frequent periods of Evin to maintain) and increased cues required for sequencing/processing. Pt able to sequence steps with increased time but demos some repetition/perseveration of already completed elements of task. Extremity Assessments: See OT Evaluation flowsheet for Extremity Measurement updates. Balance: Sitting Balance Static Sitting-Level of Assistance: Standby Dynamic Sitting-Level of Assistance: Contact guard Standing Balance Static Standing-Level of Assistance: Contact guard Dynamic Standing-Level of Assistance: Minimum assistance, Contact guard Mobility Assessment/Intervention: Supine to Sit Mobility [place] Level: Supine->Sit: minimum assist (75% patient effort) Bed Features/Set-up: Supine->Sit: Head of bed elevated, Use of bed rail Skilled Rationale: Verbal cues, Facilitate anterior shift, Technique of activity, Cues for increased safety, Positioning, Initiation and execution of task Skilled Intervention/Details: Supine->Sit: Pt able to advance LE over EOB (increased cues to initiate). Uses therapist's hand as anchor to fully propel trunk to upright. Additional time to shift hips anteriorly. Transfer Assessment/Intervention: Sit to Stand Transfer [place] Level: Sit->Stand: minimum assist (75% patient effort) Assistive Device: Sit->Stand: gait belt Skilled Rationale: Verbal cues, Full extension to upright positioning/posture, Technique of activity, Cues for increased safety, Positioning Skilled Intervention/Details: Sit->Stand: Mild impulsivity, cues to remain seated until therapist prepared with 2WW. Pt uses UE for leverage, slightly increased time to reach full upright positionand mild postural sway upon reachng standing. Stand to Sit Transfer [place] Level: Stand->Sit: minimum assist (75% patient effort) Assistive Device: Stand->Sit: gait belt, 2 wheeled walker Skilled Rationale: Verbal cues, Controlled descent for sitting, Technique of activity, Cues for increased safety, Positioning Skilled Intervention/Details: Stand->Sit: Cues to reach back for armed chair to preapre for safetransfer. Fair eccentric control. Functional Mobility: Functional Mobility [place] Level: Functional Mobility/Gait: (CGA to Evin) Physical Assist: Functional Mobility/Gait: chair follow Assistive Device: Functional Mobility/Gait: 2 wheeled walker, gait belt Functional Mobility Distance: Distance needed for limited community mobility (~400 ft) Functional Mobility Deficits: Activity tolerance, Balance, Attention, Generalized weakness, Slowed gait speed Functional Mobility Skilled Rationale: Cues for increased safety, Facilitate postural control, Facilitate positioning, Technique of activity, Verbal cues, Upright gaze/neck extension, Visual scanningand environmental awareness Skilled Intervention/Details - Functional Mobility/Gait: Pt ambulating in hallway with 2WW, mild unsteadiness with x1 instance of near LOB (continued Evin to correct). Pt frequently turning head to look at distractions throughout path in hallway. Challenged to dual task/way find during this task for functional cognition. Slowed pace and increased instability noted with increased cognitive load and fatigue. Able to recall place/room number but requires significantly additional time/cues. Outcome Score(s): [facility]RENT [facility] Daily Activity Inpatient Short Form Putting on/Taking Off Lower Body Clothin - A Little Assistance Bathin - A Little Assistance Toiletin - Total Assistance Putting on/Taking Off Upper Body Clothin - A Little Assistance Groomin - A Little Assistance Eatin - No Assistance [facility] Activity Raw Score: 17 [facility]RENT [facility] Activity Functional Limitation/Modifier: 50.11% Currently Impaired in Daily Activity- CK Assessment & Plan: Pt is making steady progress toward stated OT goals. Pt continues to be limited by balance, weakness, at-risk cognition, and activity tolerance/endurnace. Pt would benefit from continued skilled therapy services to promote independence and safety with functional mobility and basic ADL tasks. Patient Instruction/Education this session: Patient Instruction: today's treatment plan Plan for next session: continue OT plan of care; progression of dynamic balance/functional sequencing for ADLs Acute OT Goals Plan of Care by Cathleen Manuel OT at 07/21/2022 9:35 AM Version 1 of 1 Problem: OT - Balance Goal: Balance - Standing Description: Pt will perform 10 minutes of functional ADL task in standing with supervision and no major LOB to promote safety and improved balance required for self-care activities. Outcome: Ongoing Problem: OT - Endurance Goal: Endurance Functional Mobilty Around Home Description: Pt will complete distance needed for limited community mobility with supervision and good balance. Outcome: Ongoing Problem: OT - Cognition Goal: Cognition simple ADL Description: Pt will demonstrate improved cognition, completing simple ADL task for 10 minutes withno more than 2 cues required to maintain attention, for improved safety and success at discharge destination. Outcome: Progressing Toward Goal OT treatment consisted of ADL retraining, balance training, cognitive training, energy conservation/endurance training and transfer training to work and progress towards above goal(s). Treating Therapist: Cathleen Manuel OT Additional Details: Co-evaluation/co-treatment performed?: Yes, simultaneous billable skilled care This co-treatment session performed between OT and PT was beneficial, necessary and provided distinct services in progressing this person's individual plan of care. Medical complexity with functionaldeficits that necessitate two skilled therapy disciplines working concurrently to optimize patient's progress towards each discipline's goals. This co-treatment was medically necessary due to patient's: recently increased agitation (several days without therapy); postural control/cognition. Patientbenefits from simultaneous treatment from another therapy discipline to maximize progress towards functional mobility and basic ADL task Occupational Therapy goals. I was assisted by GARY Gonzalez for today's session. I used facemask, protective eye shield, and gloves in today's patient interaction. Patient location at end of session: chair Alarms on at end of session: chair alarm and RN aware Needs in reach. Time In: 805 Time Out: 834 Total Visit Time: 29 minutes Total Treatment Time (skilled, billable minutes): 29 minutes Upon discontinuation of Acute Care Occupational Therapy Services or patient discharge from the hospital this note represents the current Occupational Therapy Discharge Summary. * Lisa Balbuena PT - 07/21/2022 8:35 AM EST Acute Physical Therapy Treatment Prior to Admission [facility] score(s): PRIOR LEVEL AM-PAC Mobility Raw Score: 24 PRIOR LEVEL AM-PAC Activity Raw Score: 24 Current AM-PAC score(s): CURRENT AM-PAC Mobility Raw Score: 19 Based on the above AM-PAC score(s) and PT clinical judgment, patient is a good candidate for discharge to Inpatient Rehab Facility (Potential to progress to home with initial 24 hour supervision and assist, and OP PT.) Supporting Factors (would benefit from skilled therapy services): Impaired functional status, Impaired balance, Decreased endurance necessitating skilled therapy services, but able to tolerate therapy requirements for inpatient rehab, Impaired cognitive status, Assistance needed with functional mobility, Fall risk Mobility equipment available at home: none used ADL equipment available at home: none Equipment needed for discharge: to be determined Current therapy frequency recommendation in acute: Therapy Frequency: 5 times a week Precautions and Weightbearing Status: Existing Precautions/Restrictions: fall Urinary catheter Patient Safety Communication Prior to Visit: Nursing Subjective: Pt supine with HOB elevated on arrival. Agreeable to Physical Therapy. Pain: General Pain Documentation (Adult, OB, Peds) Presence of Pain: complains of pain/discomfort Pain Location: head Objective/Observation: Vitals/Vitals Responses to Treatment: Stable Respiratory Status O2 Device: room air Cognition Overall Cognitive Status: Impaired Arousal/Alertness: Appropriate responses to stimuli Orientation Level: Oriented to person, Oriented to time, Oriented to place (Hospital with choices. States [place], then [place], before therapy corrected to [place]. Reads the date off of his in-room whiteboard.) Following Commands: Follows one step commands with increased time, Follows one step commands with repetition Safety Judgment: Decreased awareness of need for assistance, Decreased awareness of need for safety Awareness of Errors: Assistance required to correct errors made Deficits: Decreased awareness of deficits Attention Span: Attends with cues to redirect Memory: Decreased recall of recent events Problem Solving: Assistance required to generate solutions, Assistance required to implement solutions Cognition Comments: Lethargic Extremity Assessments: See PT Evaluation flowsheet for Extremity Measurement updates. Skin and Edema: Balance: Sitting Balance Static Sitting-Level of Assistance: Standby Dynamic Sitting-Level of Assistance: Standby Skilled Rationale: Cues for increased safety Sitting Balance Skilled Intervention/Details: Impulsively attempts to stand requiring cues to remain seated. Standing Balance Static Standing-Level of Assistance: Contact guard Dynamic Standing-Level of Assistance: Minimum assistance Standing-Balance Support: Gait belt, 2 wheeled walker Skilled Rationale: Positioning, Verbal cues, Tactile cues, Full extension to upright positioning/posture, Cues for increased safety Standing Balance Skilled Intervention/Details: Increased postural sway with static standing at the sink to complete self-care activities. Pt also with fatigue following activity, contributing to an increase in balance impairment. Episode of scissoring when turning away from the sink requiring Min Aureliano correct. Min A with ambulation when pt completing head turns. Verbal cues for forward gaze. Mobility Assessment/Intervention: Supine to Sit Mobility [place] Level: Supine->Sit: minimum assist (75% patient effort) Bed Features/Set-up: Supine->Sit: Head of bed elevated, Use of bed rail Skilled Rationale: Hand placement, Verbal cues, Tactile cues, Cues for increased safety Skilled Intervention/Details: Supine->Sit: Hand-held assist to pull trunk to upright. Verbal cues to scoot hips to EOB. Transfer Assessment/Intervention: Sit to Stand Transfer [place] Level: Sit->Stand: minimum assist (75% patient effort) Assistive Device: Sit->Stand: gait belt, 2 wheeled walker Skilled Rationale: Hand placement, Verbal cues, Tactile cues, Full extension to upright positioning/posture, Cues for increased safety Skilled Intervention/Details: Sit->Stand: x1 from EOB with mild impulsivity. Forward flexed posture in standing. Stand to Sit Transfer [place] Level: Stand->Sit: minimum assist (75% patient effort) Assistive Device: Stand->Sit: gait belt, 2 wheeled walker, armed chair Skilled Rationale: Hand placement, Verbal cues, Tactile cues, Controlled descent for sitting, Cues for increased safety Skilled Intervention/Details: Stand->Sit: x1 to the armed chair. Verbal cues for turning to approach the armed chair and to reach back prior to sitting for safety. Gait/Functional Mobility Assessment/Intervention: Gait Assessment [place] Level: Gait: minimum assist (75% patient effort) Assistive Device: Gait: gait belt, 2 wheeled walker Ambulation Distance (Feet): 400 Gait Deviations Identified: decreased gait speed, flexed posture, increased postural sway Gait Skilled Rationale: verbal, upright posture Skilled Intervention/Details - Gait: Easily distracted when ambulating in the hallway, frequently completing head turns resulting in increased postural sway or LOB requiring Min A to correct. Wheelchair Assessment Patient currently uses wheelchair?: No Stairs Assessment/Intervention: Stairs Assessment [place] Level: Stair Negotiation: not tested Outcome Score(s): CURRENT [facility] Basic Mobility Inpatient Short Form Turning over in bed: 4 - No Assistance Sitting/standing from chair: 3 - A Little Assistance Moving from lying on back to sittin - A Little Assistance Moving to and from bed to chair: 3 - A Little Assistance Walk in hospital room: 3 - A Little Assistance Climbing 3-5 steps with a railin - A Little Assistance CURRENT [facility] Mobility Raw Score: 19 CURRENT [facility] Mobility Functional Limitation/Modifier: 41.77% Currently Impaired in Basic Mobility- CK Interventions: Assessment & Plan: Pt demos progress toward PT goals. Limited by cognitive impairment resulting in impaired safety awareness, increased risk for falls. Increased single-bout and total ambulation distance, total standing balance activity time, and total activity tolerance time. Demos impaired motor sequencing with self-care activities requiring cues to attend to and advance in performance of a task. Difficulty with cognitive-motor dual tasks without balance impairment. Pt continues to benefit from skilled PT services to address cognition, balance, postural control, and activity tolerance as they relate to overall performance of functional mobility. Patient Instruction/Education this session: OOBTC and ambulate with 2WW with RN assist. Plan for next session: Progress gait training, standing balance, cognitive-motor dual tasks Acute PT Goals Plan of Care by Lisa Balbuena PT at 07/21/2022 8:35 AM Version 1 of 1 Problem: PT - Balance/Coordination/Neuro Re-Education Goal: Standing Dynamic/Static Balance Description: Pt will perform standing balance tasks for 15 minutes with supervision with out an assistive device in order to improve functional mobility and safety with standing tasks. Outcome: Ongoing Problem: PT - Mobility Goal: Ambulation Description: Pt will ambulate 500 feet with out an assistive device with supervision to improve ability to navigate home environment. Outcome: Ongoing Problem: PT - Transfers Goal: Supine <-> Sit Description: Pt will perform bed mobility with flat bed & no rail with independence in order toimprove functional mobility and safety. Outcome: Ongoing Goal: Sit <-> Stand Description: Pt will perform sit to/from stand transfers with supervision with out an assistive device in order to improve functional mobility and safety. Outcome: Ongoing Lisa Balbuena PT, DPT License #: [id number] Pager #: [phone] PT treatment consisted of Therapeutic Activity and Gait/Stair Training to work and progress towardsabove goal(s). Treating Therapist: Lisa Balbuena PT Additional Details: Co-evaluation/co-treatment performed?: Yes, simultaneous billable skilled care This co-treatment session performed between PT and OT was beneficial, necessary and provided distinct services in progressing this person's individual plan of care. Medical complexity with functionaldeficits that necessitate two skilled therapy disciplines working concurrently to optimize patient's progress towards each discipline's goals. This co-treatment was medically necessary due to patient's: Cognitive issues. Patient benefits from simultaneous treatment from another therapy discipline to maximize progress towards all Physical Therapy goals. I used facemask, protective eye shield, and gloves in today's patient interaction. Patient location at end of session: chair Alarms on at end of session: chair alarm Needs in reach. Time In: 805 Time Out: 834 Total Visit Time: 29 minutes Total Treatment Time (skilled, billable minutes): 29 minutes Upon discontinuation of Acute Care Physical Therapy Services or patient discharge from the hospitalthis note represents the current Physical Therapy Discharge Summary. * Clau Marinelli MD - 07/18/2022 7:49 AM EST NEUROCRITICAL CARE DAILY NOTE HOSPITAL VISIT DEMOGRAPHICS Patient: [facility] Code status: Full Code Admission date: 07/14/2022 3:12 AM Hospital days: LOS: 4 days HISTORY OF PRESENT ILLNESS [facility] is a 67 y.o. male with a past history of tobacco-use (0.5 PPD) and marijuana-use. The patient presented to OSH with acute onset severe headache, N&V, LUE drift, and AMS. LKW 07/14 1200. CTH demonstrated hemorrhage in bilateral lateral ventricles L>R. Patient transferred to [facility] for further management. Upon arrival to [facility], he was on a cardene gtt for SBP <140. CTH demonstrated stable-appearing IVHof the bilateral lateral ventricles and basal cistern w/o evidence of hydrocephalus. 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 INTERVAL HISTORY SINCE ADMISSION 07/14/2022: admitted to [facility] 07/15: precedex/seroquel for agitation. Start lisinopril. 07/16 increased seroquel 07/16: Increase lisinopril, CTH, SBP changed to < 160 07/18: NAEON PHYSICAL EXAM GENERAL: Alert, no acute distress. Eating breakfast, sitter at bedside HEENT: normocephalic, no scalp wounds nor lesions, dentures intact CARDIO: +S1S2, RRR, no murmurs, no edema. NSR on tele PULM: diminished to auscultation in bases bilaterally, no expiratory wheeze. Respirations unlabored. Tolerating RA ABDOMINAL: flat, soft, nontender, nondistended, active bowel sounds EXTREMITIES: no wounds or lesions VASCULAR: 2+ distal pulses, capillary refill <3 seconds NEURO: Mental status: somnolent on evaluation but arouses to voice and gentle stim Speech/language: no dysarthria Cranial nerves: No gaze deviation, PERRL Motor: Normal bulk and tone. No UE drift. 5/5 strength x4 Sensation: Extremity sensation intact throughout. ASSESSMENT AND PLAN Neuro: Bilateral Lateral Ventricular Hemorrhage Bilateral ICA Occlusion with Reconsitution Concern for Mcdermott Mcdermott Headache Acute emcephalopathy Acute hydrocephalus - IVH Management: - Monitor neurostatus with neurochecks Q2H and pupilometer Q2H - Prevent further expansion with goal SBP <160 (see cards) - 07/14 NSGY consult: possible EVD placement if hydrocephalus - 07/14 DCA: bilateral ICA occlusion with collateral flow from ECA's and posterior circulation - Plans to revascularize once recovered from IVH - Imaging: - 07/13 CTA H/N: occlusion of bilateral internal carotid arteries; 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 No evidence of hydrocephalus. - 07/14 CTH (0630, 6h stability): stable -07/16 CTH stable, will follow clinical exam amd repeat prn ,emtal status changes -07/16 CTH obtained in pm d/t acute MS change-increase in hydrocephalus -07/17 CTH - MRI B w/wo: Pending - Cytotoxic Cerebral Edema Management: - Goal Na 135 - 145; monitor Na daily Recent Labs 07/16/22 0009 07/17/22 0029 07/18/22 0019 SODIUM 141 138 138 OSMOLALITY 299 295 293 CHLORIDE 111* 107 108 - Hemorrhage presumably 2/2 unknown (HTN? Atherosclerotic?) etiology; evaluation for cause and source: - Complete TTE (see cards) - Obtain LDL level and statin therapy if indicated (131) - Obtain HA1C level (5.7) - Defer antiplatelet therapy and therapeutic anticoagulation - Consider urine drug screen on admission if no stroke risk factors: THC - Consider hypercoagulability panel 24H-post tPA if no stroke risk factors - Initiate VTE prophylaxis after bleed stability established (see heme) - Pain/Sedation management - Tylenol 650mg Q4H PRN - precedex-wean to off - Seroquel 25 mg BID Psych: No Current Issues Pulm: Emphysema Tobacco-Use Marijuana-Use O2 Sat (%): 92 % (07/18 0700) O2 Device: room air (07/18 0400) - Goal SpO2 >92%; wean FiO2 as tolerated - WPT2EXP, encourage pulmonary toileting - PRN Duonebs - Nicotine patch Cards: HLD Acute hypertension Temp: [98 F (36.7 C)-100.2 F (37.9 C)] 99.4 F (37.4 C) Pulse (Heart Rate): [66-103] 97 Resp Rate: [15-43] 24 BP: (114-183)/(46-92) 160/72 O2 Sat (%): [90 %-100 %] 92 % - Goal SBP <160, MAP >65 - Home antihypertensives: none - 07/17 lisinopril increased to 10 mg daily, consider adding amlodipine 5 mg tomorrow if remains high - cardene gtt-titrating to off - PRN labetalol and hydralazine - TTE: pending - Atorvastatin 80 mg QD Recent Labs 07/13/22 2339 CHOLESTEROL 195 TRIG 63 HDL 51 LDL 131 Renal/: Hypocalcemia Hypokalemia Traumatic [place] placement BPH Acute urinary Retention - Fluid Balance: - Goal: euvolemia Intake/Output Summary (Last 24 hours) at 07/18/2022 0750 Last data filed at 07/18/2022 0551 Gross per 24 hour Intake 657.41 ml Output 2475 ml Net -1817.59 ml - BPH/traumatic [place] placement: - Flomax - [place] placed per urology, appreciate recs: - Recommend keeping catheter in place for 72h (at least until 12 AM) prior to a trial of void - Will consider dc on 07/18 - This was a complex catheter placement, the catheter is NOT to be removed prior to the above date w/o first discussing w/ the Urology consults team - Daily Chem 10 - Electrolytes replaced per [facility] protocol Recent Labs 07/17/22 0029 07/18/22 0019 SODIUM 138 138 POTASSIUM 3.4* 3.9 CHLORIDE 107 108 CO2 20* 23 BUN 27* 18 CREATSERUM 0.80 0.66* MAGNESIUM 2.1 1.7 PHOSPHORUS 2.8 3.2 ICA 4.53* 4.49* GI/Nutrition: No Current Issues No results for input(s): ALBUMIN, BILIDIRECT, BILITOTAL, ALKPHOS, ALT, AST, TP, AMYLASE, LIPASE in the last 72 hours. - DIET REGULAR - [place] Swallow Screening Result: passed=cleared for oral intake - Consult nutrition for malnutrition screening - There is no height or weight on file to calculate BMI. - 07/13 LFT: WNL - Bowel regimen: - Last Bowel Movement: 07/16/22 - Senna, prn miralax Endo: Risk for Stress-Induced Hyperglycemia (resolved) - Goal blood glucose 140-180 - Hb A1c 5.7% Recent Labs 07/16/22 0009 07/17/22 0029 07/18/22 0019 GLUCOSE 116* 130* 130* ID: Acute leukocytosis (likely secondary stress reaction) Recent Labs 07/17/22 0029 07/18/22 0019 WBC 11.75* 12.03* - Temp (24hrs), Av.2 F (37.3 C), Min:98 F (36.7 C), Max:100.2 F (37.9 C) - PRN Tylenol for T>100.4F -WBC trending up but temp okay, will cont to trend and consider repeat UA if upward trend continues - Most recent and positive cultures: Date Collected Source Result Date Finalized 07/14 UA negative 07/14 MRSA swab negative - Antiinfectives: Start Date Antiinfective Coverage Course Length Stop Date 07/14 Ancef Urethral trauma x1 dose 07/14 Heme/Onc: No Current Issues Recent Labs 07/16/22 1920 07/17/22 0029 07/18/22 0019 WBC -- 11.75* 12.03* RBC -- 4.18* 4.07* HGB -- 12.9* 12.8* HCT -- 37.3* 37.1* PLATELET -- 237 234 PT 14.3* -- -- PTT 33.2 -- -- INR 1.1 -- -- - Goal plt >100, INR <1.4, Hgb >7 Musc: No Current Issues - PT/OT consulted and following - Current Activity Order: AAT Social/Dispo: - Code status: Full Code - Primary Emergency Contact: Rajiv Skinner - Discharge planning per PCRM/SW. - ICU diary ICU Checklist: [ ] CAM-ICU [ ] ICU diary update 07/16 [x ] DVT ppx; [x ] SCDs; [X ] Lovenox [ ] heparin [ ] Stress ulcer prophylaxis: none - Lines/Tubes: Bita: CVC: [place]: inserted 07/14, (indication: BPH,urinary retention-see above) Rectal tube: Enteral access: Patient seen and plan of care discussed with [facility] Attending, Dr. Bria Marinelli MD Emergency Medicine / Internal Medicine PGY-2 # [id number] Associated attestation - Candida Fraser MD - 07/18/2022 5:25 PM EST I saw and examined patient 07/18/22 I have reviewed imaging studies and laboratory test results. I have reviewed the medications and other orders. I agree with the resident's/APRNnote except for/in addition to what is noted below. I myself devised the plan of care above (refer to my note below for a dditions). Please refer to the resident's note for details. 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 He was on Nicardipine drip @ 5 mg/hr On exam he is laying in bed awake alert oriented to self and place, did not know the day or date. Pupils are equal and reactive EMOI Face symmetric Move all ext antigravity Lab Results Component Value Date WBC 12.03 (H) 07/18/2022 HGB 12.8 (L) 07/18/2022 HCT 37.1 (L) 07/18/2022 PLATELET 234 07/18/2022 MCV 91.2 07/18/2022 Lab Results Component Value Date CREATSERUM 0.66 (L) 07/18/2022 BUN 18 07/18/2022 SODIUM 138 07/18/2022 POTASSIUM 3.9 07/18/2022 CHLORIDE 108 07/18/2022 CO2 23 07/18/2022 Incomplete examination due to patient intolerance. No significant interval change in intraventricular hemorrhage. Ventricular system is stable in size. No progressive hydrocephalus. Incomplete sulcal FLAIR suppression in the bilateral occipital and posterior temporal lobes, which could reflect subarachnoid hemorrhage or be related to hyperoxygenation therapy. 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 (DOC:[id number]) * Candida Fraser MD - 07/17/2022 11:28 PM EST Neuro-Critical care Progress note: 67 yo man with hx of tobacco use presented with acute headache was found to have IVH. 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 He has fluctuating exam with worsening hydrocephalus which improves overnight. This morning he was laying in bed comfortably, he is in no acute distress. Eyes opens oriented to self and place and follow commands. PERRLA, EMOI Face symmetric Move all ext symmetrically Vitals: 07/17/22 2200 07/17/22 2215 07/17/22 2230 07/17/22 2300 BP: 183/82 156/72 145/68 156/77 Pulse: 86 79 74 71 Resp: (!) 27 (!) 26 21 19 Temp: 99 degrees F (37.2 degrees C) TempSrc: Oral SpO2: 98% 99% 99% 97% Weight: Lab Results Component Value Date WBC 11.75 (H) 07/17/2022 HGB 12.9 (L) 07/17/2022 HCT 37.3 (L) 07/17/2022 PLATELET 237 07/17/2022 MCV 89.2 07/17/2022 Lab Results Component Value Date CREATSERUM 0.80 07/17/2022 BUN 27 (H) 07/17/2022 SODIUM 138 07/17/2022 POTASSIUM 3.4 (L) 07/17/2022 CHLORIDE 107 07/17/2022 CO2 20 (L) 07/17/2022 CT head: Stable intraventricular hemorrhage. No new or increasing intracranial hemorrhage. Stable size of the ventricular system compared to the prior study performed earlier today. 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 vs primary HTN bleed Hydrocephalus Acute Encephalopathy due hydrocephalus improved SBP<160 Neuro check q1h Mcdermott-Mcdermott w/u - MARQUEZ: negative - CRP: 3.96 -->10.62->27- will no longer follow - ESR: 8 - RF: <10 - TSH/FT4 reflex: 0.723 HTN Emergency SBP<160 TTE pending Labetalol and hydralazine prn Lisinopril 10 mg daily Emphysema Tobacco-Use Marijuana-Use Goal SpO2 >92%; wean FiO2 as tolerated - [id number], encourage pulmonary toileting - PRN Duonebs - nicotine patch The patient is critically ill due to intraventricular hemorrhage and acute encephalopathy , hydrocephalus requiring close neurological and hemodynamic monitoring and intravenous antihypertensive medications frequent neurochecks . Critical care time spent is 30 minutes Candida Fraser MD, Division of Neurocritical Care @today@ 11:50 PM * MIGUEL A Rubio - 07/17/2022 2:10 PM EST Acute Care MICROBIOLOGICAL LAB TECHNICIAN Speech/Language/Cognitive Evaluation Best mode of Communication: spoken language (regular speech), responds to yes/no questions Communication Strategies: Simple Y/N questions Discharge Recommendations: Based on the below outcome measures/assessment score(s) and MICROBIOLOGICAL LAB TECHNICIAN clinicaljudgment, discharge destination recommendation is: Deferred to PT/OT recomendations related to mobility Barriers to discharge home: Cognitive impairments that impact safety and independence Supporting factors for discharge setting: Impaired cognitive skills limiting safety/insight, Impaired cognitive skills limiting functional problem solving in immediate environment Acute MICROBIOLOGICAL LAB TECHNICIAN Outcomes Tracking Communicate basic wants and needs?: yes Demo insight/appreciation of deficits?: yes Complete basic problem solving?: yes Current therapy frequency recommendation in acute: Speech/Lang/Cog Therapy Frequency: 3 times a week Clinical Impression: [facility] Sk[facility] presents with impaired cognition, characterized by reduced memory, attention, problem-solving and awareness, s/p onset of severe headache with . These deficits result in functional limitations in overall independence. Pt demonstrates inability to verbalize his location or reason for hospitalization. Pt demonstrates reduced awareness of deficits, both physically and cognitively. Pt unable to recall components of recent conversations and demonstrates frequent perseverations. Pt incapable of following multi-step directions or completing complex problem-solving, creating difficulties participating in POC discussions, as well as overall safety awareness and independence. Skilled ST services are medically necessary to facilitate a successful transition from hospital setting. Patient Instruction/Education this session: plans/impressions Plan for next session: Target safety awareness and memory strategies. Subjective: Pt cleared for visit by RNsheryl present. Pt alert and cooperative throughout evaluation. Pt perseverates on going home and does not appear to understand reason for hospitalization. Pain: General Pain Documentation (Adult, OB, Peds) Presence of Pain: denies pain/discomfort DVPRS (Defense and Veterans Pain Rating Scale) DVPRS: Rest: 0- no pain DVPRS: Activity: 0- no pain Patient History Comments: Pt is a 67 y.o. male who presented to [facility] an [facility] with severe headache, N&V, LUE drift and AMS. Pt transferred to [facility] for further care. Upon arrival, CTH demonstrates stable-appearing IVH pf bilateral lateral ventricles and basal cistern w/o evidence of hydrocephalus. Pt demonstrated transient hydrocephalus night prior which has since resolved. Prior Level of Function: Unknown at this time. Respiratory Status: O2 Sat (%): 97 % (07/17 1400) O2 Device: room air (07/17 1400) EXPRESSIVE LANGUAGE: Functional Task: Imitates Gestures Functional Automatic Speech Functional Phrase Completion Functional Confrontation Naming Functional Answering 'wh' Questions Functional Repetition Functional Verbalize Basic Wants and Needs Functional Functional Participation in Conversation Functional Expressive Language Characteristics: Fluent RECEPTIVE LANGUAGE: Functional Task: Identify Functional Objects Functional Follow 1-Step Commands Functional Follow 2+ Step Commands Impaired Answers Basic Y/N Questions Functional Answers Complex Y/N Questions Impaired Conversational Comprehension Impaired READING: Functional Task: Letter Identification Functional Single Words Aloud Functional Single Word Comprehension Functional Sentence Comprehension Functional Functional Environmental Reading Functional WRITING: Impaired Task: Copying Impaired Writing to Dictation Impaired Writing Biographical Information Impaired Writing Single Words Impaired Writing Sentences Impaired Functional Writing Impaired SOCIAL INTERACTION/PRAGMATICS: Functional Task: Initiates Conversation Impaired Takes Turns in Communication Functional Maintains Eye Contact Functional Maintains Topic Functional Shifts Topics Appropriately Impaired Affect Impaired Responds Appropriately to Questions Impaired COGNITION: Impaired Task: Arousal/Alertness Appropriate responses to stimuli Orientation Level Oriented to person, Oriented to time Safety Judgment Decreased awareness of need for assistance Awareness of Errors Decreased awareness of errors Deficits Decreased awareness of deficits Attention Span Difficulty attending to directions, Difficulty dividing attention Memory Decreased recall of recent events, Decreased recall of precautions Problem Solving Assistance required to generate solutions, Assistance required to implement solutions Cognition Comments Pt demonstrates impaired cognition. Pt demonstrates inability to follow multi-step directions, increased processing time and decreased accuracy for basic problem solving and inability to complete complex problem solving. Pt easily distractible and perseverates on leaving hospital. Pt unable to recall safety precautions, such as how to contact nurse or why he should not leave his bed. CRANIAL NERVE EXAMINATION: Cranial Nerve Exam CN V (Trigeminal) strong equal bilateral strength of masseter and temporal muscles CN VII (Facial) strong bilateral movement of upper and lower face CN IX (glossopharyngeal) uvula is midline, soft palate and pharynx rise symmetrically when patient says 'ahhh' CN X (Vagus) uvula is midline CN XI (Accessory) strong and equal rotation of head, strong and equal shoulder shrug CN XII (Hypoglossal) no abnormal tongue movements MOTOR SPEECH TASKS: Intact Task: Imitate Motor Movements Imitate Sounds and Words Rapid Alternating Movements Speech Intelligibility Fluency Saliva Management VOCAL PARAMETERS: Intact Task: Breath Support Coordination of Respiration and Phonation Duration of Phonation Pitch Control Loudness Vocal Quality GRBAS: A perceptual rating scale for voice parameters Rating scale of 0 to 3 0 = no impairment 1 = minimal to mild impairment 2 = moderate impairment 3 = severe impairment Subjective Voice Evaluation Grade of dysphonia (G): 0 Roughness (R): 0 Breathiness (B): 0 Asthenia (A): 0 Strain (S): 0 MICROBIOLOGICAL LAB TECHNICIAN Outcomes: The Orientation Log (O-Log) is designed to be a quick quantitative measure of orientational status for use at bedside with rehabilitation inpatients. Place, time, and situational (Etiology/Event + Pathology/Deficits) domains are assessed. Patient responses are scored according to the following criteria: 3 = correct spontaneously or upon first free recall attempt; 2 = correct upon logical cueing (e.g., That was yesterday, so today must be ); 1 = correct upon multiple choice or phonemic cuing; and 0 = incorrect despite cueing, inappropriate response, or unable to respond. Patient scored 30this date. Patient with deficits in the areas of orientation to time, day, and situation Date: 3 Time: 3 City: [address]:2 Name of Hospital:0 Month: 3 Date:3 Year:3 Day of week:1 Clock time:3 Etiology/Event:2 Pathology/Deficits:2 The Cognitive Log (Cog-Log) is designed to be a quick quantitative measure of cognition for use at bedside with rehabilitation patients. It is intended for individuals who have achieved consistent accurate orientation, such as measured by the Orientation Log (O-Log). The Cog-Log can be used to document cognitive progress on a daily basis, in the areas of immediate memory, reasoning, thought organization and attention. All items are scored from 0 to 3 for a total possible score of 30, which can be graphed for quick reference. Patient scored 07/24 this date. Deficits noted in the areas of Memory, attention. Date: 3 Time: 3 Name of Hospital: 0 Repeat Address: 0 20-1: 2 Months Reversed: 0 30 Seconds: 0 Fist-EdgePalm: 1 Go/No-Go: 3 Address: 0 Acute MICROBIOLOGICAL LAB TECHNICIAN Goals Notes from 07/17/2022 2:42 AM through 07/17/2022 2:42 PM Problem: MICROBIOLOGICAL LAB TECHNICIAN - Cognition Goal: Memory Goal 1 Description: Patient will utilize compensatory memory strategies to teach back at least 3 facts related to their hospitalization/POC across a 5 minute delay across at least 2 consecutive sessions to support generalization of strategy use and pt's self-advocacy, min cues by discharge. Outcome: Ongoing Goal: Problem Solving Goal 1 Description: Patient will complete basic problem solving tasks in at least 3/5 of opportunities in their immediate environment to support self-advocacy and independence, given min cues across 2 consecutive sessions by discharge. Outcome: Ongoing Goal: Meticognition Goal 1 Description: Patient will identify at least 3 deficits related to medical condition and how deficits will impact ability to return home with min cues across 2-3 sessions to improve insight and safety. Outcome: Ongoing Goal: Orientation Goal Description: Patient will recall/implement use of orientation strategies, given min -no cues, to demonstrate improved awareness and insight as measured by achieving a 27/30 on The Orientation Log, across 1-2 sessions. Outcome: Ongoing I used facemask, protective eye shield, and gloves in today's patient interaction. Speech Language Pathologist: MIGUEL A Rubio Time In: 1409 Time Out: 143 Total Visit Time: 25 minutes Total Treatment Time (skilled, billable minutes): 25 minutes Patient location at end of session: bed with head of bed elevated Alarms on at end of session: unchanged by MICROBIOLOGICAL LAB TECHNICIAN Needs in reach: Yes Upon discontinuation of Acute Care Speech Therapy Services or patient discharge from the hospital this note represents the current Speech Therapy Discharge Summary * Héctor Araya MD - 07/17/2022 10:14 AM EST NSGY daily prog note S: transient hydro overnight since resolved PE: Temp: [98.2 F (36.8 C)-99.6 F (37.6 C)] 98.2 F (36.8 C) Pulse (Heart Rate): [52-95] 75 Resp Rate: [16-40] 20 BP: (104-168)/(54-81) 130/62 O2 Sat (%): [96 %-100 %] 98 % NAD A&Ox2 PERRL EOMI FS TM 5/5 RUE; 5/5 LUE 5/5 RLE; 5/5 LLE SILT Groin c/d/i WBC/Hgb/Hct/Plts: 11.75/12.9/37.3/237 (07/17 29) Na/K+/Phos/Mg/Ca: 138/3.4/2.8/2.1/-- (07/17 29) Bun/Creat/Cl/CO2/Glucose: 27/0.80/107/20/130 (07/17 29) Lab Results Component Value Date INR 1.1 07/16/2022 INR 1.1 07/14/2022 INR 1.1 07/13/2022 PT 14.3 (H) 07/16/2022 PT 14.0 07/14/2022 PT 13.8 07/13/2022 Intake/Output Summary (Last 24 hours) at 07/17/2022 1014 Last data filed at 07/17/2022 1000 Gross per 24 hour Intake 3193.23 ml Output 1145 ml Net 2048.23 ml Imaging: IVH L>R lateral vents and 3rd and 4th dexmedeTOMIDine (PRECEDEX) IV infusion Stopped (07/17/22 0834) niCARdipine (CARDENE) Infusion 7.5 mg/hr (07/17/22 0930) Atorvastatin 80 mg Oral QHS Ipratropium-albuterol 3 mL Nebulization Q6HNS Lisinopril 10 mg Oral Daily nicotine 1 patch Transdermal Daily And VERIFY LINKED PATCH PLACEMENT Other Q12H QUEtiapine 25 mg Oral Q12H senna 8.6 mg Oral Daily Tamsulosin HCl 0.4 mg Oral Daily A/P 67 y.o. male hx smoking p/w N/V with diffuse IVH L>R\ S/p dca 07/14 w sharron mcdermott - GLENN watch - CTh today for ventricular size surveillance - INR < 1.5, Platelets > 100, SBP <140 - hold all antiplatelet agents and anticoagulation - MRI brain with and without contrast when able - will revascularize on elective basis after clinic follow up - NCq1 - will follow * Razia Andrade APRN-CHURCH MUSICIAN - 07/17/2022 7:11 AM EST NEUROCRITICAL CARE DAILY NOTE HOSPITAL VISIT DEMOGRAPHICS Patient: Love Skinner Code status: Full Code Admission date: 07/14/2022 3:12 AM Hospital days: LOS: 3 days HISTORY OF PRESENT ILLNESS Love Skinner is a 67 y.o. male with a past history of tobacco-use (0.5 PPD) and marijuana-use. The patient presented to OSH with acute onset severe headache, N&V, LUE drift, and AMS. LKW 07/14 1200. CTH demonstrated hemorrhage in bilateral lateral ventricles L>R. Patient transferred to [facility] for further management. Upon arrival to [facility], he was on a cardene gtt for SBP <140. CTH demonstrated stable-appearing IVHof the bilateral lateral ventricles and basal cistern w/o evidence of hydrocephalus. 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 INTERVAL HISTORY SINCE ADMISSION 07/14/2022: admitted to [facility] 07/15: precedex/seroquel for agitation. Start lisinopril. 07/16 increased seroquel, cth 07/16: Increase lisinopril, CTH, SBP changed to < 160 PHYSICAL EXAM GENERAL: Alert, no acute distress. Eating breakfast, sitter at bedside HEENT: normocephalic, no scalp wounds nor lesions, dentures intact CARDIO: +S1S2, RRR, no murmurs, no edema. NSR on tele PULM: diminished to auscultation in bases bilaterally, no expiratory wheeze. Respirations unlabored. Tolerating RA ABDOMINAL: flat, soft, nontender, nondistended, active bowel sounds EXTREMITIES: no wounds or lesions VASCULAR: 2+ distal pulses, capillary refill <3 seconds NEURO: Mental status: alert; oriented to person, place, when asked month initially unable to answer, stated [place] coming and when prompted was able to state Dec, reoriented to year, and reason for admission Speech/language: object naming intact; repetition intact Cranial nerves: CN II: Visual ponce intact to confrontation. 2mm PERRL. video and sound recorder III, IV and : EOMI. No nystagmus. CN V: Facial sensation intact to light touch. CN VII: Facial strength normal with symmetric movement. CN VIII: Hearing is grossly intact. CN IX and X: Soft palate elevates symmetrically in the midline CN XI: Shoulder shrug and sternocleidomastoid strength 5/5 bilaterally CN XII: Tongue is midline with normal movement; no fasciculations Motor: Normal bulk and tone. No UE drift. 5/5 strength x4 Sensation: Extremity sensation intact throughout. ASSESSMENT AND PLAN Neuro: Bilateral Lateral Ventricular Hemorrhage Bilateral ICA Occlusion with Reconsitution Concern for Mcdermott Mcdermott Headache Acute emcephalopathy likely d/t to ivh Acute hydrocephalus - IVH Management: - Monitor neurostatus with neurochecks Q2H and pupilometer Q2H - Prevent further expansion with goal SBP <160 (see cards) - 07/14 NSGY consult: possible EVD placement if hydrocephalus - 07/14 DCA: bilateral ICA occlusion with collateral flow from ECA's and posterior circulation - Plans to revascularize once recovered from IVH - Daily NIHSS: NIH Stroke Scale: NIH Level of Conciousness (Provider): 0 NIH LOC Questions (Provider): 1 NIH LOC Commands (Provider): 0 NIH Best Gaze (Provider): 0 NIH Visual (Provider): 0 NIH Facial Palsy (Provider): 0 NIH Left Arm Motor (Provider): 0 NIH Right Arm Motor (Provider): 0 NIH Left Leg Motor (Provider): 0 NIH Right Leg Motor (Provider): 0 NIH Limb Ataxia (Provider): 0 NIH Sensory (Provider): 0 NIH Best Language (Provider): 0 NIH Dysarthria (Provider): 0 NIH Extinction and Inattention (Provider): 0 NIH Total Score (Provider): 1 - Imaging: - 07/13 CTA H/N: occlusion of bilateral internal carotid arteries; 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 No evidence of hydrocephalus. - 07/14 CTH (0630, 6h stability): stable -07/16 CTH stable, will follow clinical exam amd repeat prn ,emtal status changes -07/16 CTH obtained in pm d/t acute MS change-increase in hydrocephalus -07/17 CTH - MRI B w/wo: ordered-pending - Concern for mcdermott-mcdermott - 07/14 send: - MARQUEZ: negative - CRP: 3.96 -->10.62->27- will no longer follow - ESR: 8 - RF: <10 - TSH/FT4 reflex: 0.723 - Cytotoxic Cerebral Edema Management: - Goal Na 135 - 145; monitor Na daily Recent Labs 07/15/22 0007 07/16/22 0009 07/17/22 0029 SODIUM 139 141 138 OSMOLALITY 295 299 295 CHLORIDE 108 111* 107 - Hemorrhage presumably 2/2 unknown (HTN? Atherosclerotic?) etiology; evaluation for cause and source: - Complete TTE (see cards) - Obtain LDL level and statin therapy if indicated (131) - Obtain HA1C level (5.7) - Defer antiplatelet therapy and therapeutic anticoagulation - Consider urine drug screen on admission if no stroke risk factors: cotinine, THC - Consider hypercoagulability panel 24H-post tPA if no stroke risk factors - Initiate VTE prophylaxis after bleed stability established (see heme) - Pain/Sedation management - Tylenol 650mg Q4H PRN - precedex-wean to off - seroquel 12.5 mg i90n-63/22 increased to 25 ,g, will follow qtc-07/17 464 Psych: No Current Issues Pulm: Emphysema Tobacco-Use Marijuana-Use O2 Sat (%): 100 % (07/17 0600) O2 Device: room air (07/17 0400) - Goal SpO2 >92%; wean FiO2 as tolerated - [id number], encourage pulmonary toileting - PRN Duonebs - nicotine patch Cards: HLD Acute htn uncontrolled Temp: [97.9 F (36.6 C)-99.6 F (37.6 C)] 98.3 F (36.8 C) Pulse (Heart Rate): [49-95] 67 Resp Rate: [16-40] 23 BP: (104-168)/(55-81) 114/58 O2 Sat (%): [96 %-100 %] 100 % - Goal SBP <160, MAP >65 - Home antihypertensives: none - 07/17 lisinopril increased to 10 mg daily, will go up slowly on scheduled as may be compensatory to hydrocephalus - cardene gtt-titrating to off - PRN labetalol and hydralazine - TTE: pending - 07/13 troponin: 3 - 07/14 ECG: NSR, qtc 471 - 07/14 LDL 131, began Atorvastatin 80 mg Recent Labs 07/13/22 2339 CHOLESTEROL 195 TRIG 63 HDL 51 LDL 131 Renal/: Hypocalcemia Hypokalemia Traumatic [place] placement BPH Acute urinary Retention - Fluid Balance: - Goal: euvolemia Intake/Output Summary (Last 24 hours) at 07/17/2022 0711 Last data filed at 07/17/2022 0659 Gross per 24 hour Intake 3366.13 ml Output 1095 ml Net 2271.13 ml - BPH/traumatic [place]ledo placement: - Start flomax - [place] placed per urology, appreciate recs: - Recommend keeping catheter in place for 72h (at least until 07/17 AM) prior to a trial of void Will consider dc on 07/18 - This was a complex catheter placement, the catheter is NOT to be removed prior to the above date w/o first discussing w/ the Urology consults team - Maintenance: HW - Daily Chem 10; electrolytes replaced per [facility] protocol Recent Labs 07/16/22 0009 07/17/22 0029 SODIUM 141 138 POTASSIUM 4.3 3.4* CHLORIDE 111* 107 CO2 24 20* BUN 20 27* CREATSERUM 0.56* 0.80 MAGNESIUM 2.0 2.1 PHOSPHORUS 3.0 2.8 ICA 4.72 4.53* GI/Nutrition: No Current Issues No results for input(s): ALBUMIN, BILIDIRECT, BILITOTAL, ALKPHOS, ALT, AST, TP, AMYLASE, LIPASE in the last 72 hours. - DIET REGULAR - Sherry Swallow Screening Result: passed=cleared for oral intake - Consult nutrition for malnutrition screening - There is no height or weight on file to calculate BMI. - 07/13 LFT: WNL - Bowel regimen: - Last Bowel Movement: 07/16/22 - Senna, prn miralax Endo: Risk for Stress-Induced Hyperglycemia (resolved) - Goal blood glucose 140-180 - monitor for need for SSI - 07/13 hgb a1c: 5.7 Recent Labs 07/14/22 1223 07/15/22 0007 07/16/22 0009 07/17/22 0029 GLUCOSE 118* 110* 116* 130* ID: Acute Leukocytosis 2/2 acute stress/IVH Recent Labs 07/16/22 0009 07/17/22 0029 WBC 9.79 11.75* - Temp (24hrs), Av.6 F (37 C), Min:97.9 F (36.6 C), Max:99.6 F (37.6 C) - PRN Tylenol for T>100.4F -WBC trending up but temp okay, will cont to trend and consider repeat UA if upward trend continues - Most recent and positive cultures: Date Collected Source Result Date Finalized 07/14 UA negative 07/14 MRSA swab negative - Antiinfectives: Start Date Antiinfective Coverage Course Length Stop Date 07/14 Ancef Urethral trauma x1 dose 07/14 Heme/Onc: No Current Issues Recent Labs 07/16/22 0009 07/16/22 1920 07/17/22 0029 WBC 9.79 -- 11.75* RBC 4.09* -- 4.18* HGB 12.7* -- 12.9* HCT 37.3* -- 37.3* PLATELET 216 -- 237 PT -- 14.3* -- PTT -- 33.2 -- INR -- 1.1 -- - Goal plt >100, INR <1.4, Hgb >7 Musc: No Current Issues - PT/OT consulted and following - Current Activity Order: AAT Social/Dispo: - Code status: Full Code - Primary Emergency Contact: Rajiv Skinner - 07/16: pt's updated at bedside. Made aware of potential need for EVD if pt exam worsens. She's in agreement with this plan if needed. - Discharge planning per [facility]Octav[facility]/[place]. - ICU diary updated: 07/17 ICU Checklist: [ ] CAM-ICU [ ] ICU diary update 07/16 [x ] DVT ppx; [x ] SCDs; [ ] Lovenox possible 07/17 per NS, [ ] heparin [ ] Stress ulcer prophylaxis: none - Lines/Tubes: Bita: CVC: [place]: inserted 07/14, (indication: BPH,urinary retention-see above) Rectal tube: Enteral access: Patient seen and plan of care discussed with [facility] Attending, RADHA West Service pager: [phone] Service [place] #: [phone] (Beds [id number] and beds), [place] #: [id number] ([phone] and [facility]) 07/17/22 7:11 AM * Jimbo Ram MD - 07/16/2022 10:41 PM EST NSG Update Note Called to bedside after CT head showing increased hydrocephalus and reported worsened exam PE: Wakes up easily Eyes to voice PERRL EOMI FS Says name Otherwise not oriented FC x 4 briskly Plan: -- hold on evd for now -- repeat coags -- hold dvt ppx -- ct head in am -- neuro checks * Cathleen Manuel OT - 07/16/2022 3:08 PM EST Occupational Therapy Attempt Note 07/16/2022 OT Therapy Completed: Attempted Attempted Reason: Patient is not medically optimized to tolerate therapy program. Will re-attempt as able/appropriate. Cathleen Manuel OT Time In: 900 Time Out: 900 Total Visit Time: 0 minutes Total Treatment Time (skilled, billable minutes): 0 minutes * Samir Marquez MD - 07/16/2022 11:06 AM EST The patient was seen and examined on 07/16/2022. The plan was formulated on the same day. Please refer to the [facility] note for additional details. Agitation and confusion overnight Ct head is stable. Exam: Sleepy, wakes up to stimulation Following commands. Plan: Neurological: IVH Acute encephalopathy Nicardipine drip SBP < 140 Normonatremia DCA with mcdermott mcdermott precedex drip for acute encephalopathy Seroquel as needed. Respiratory: RA. Cardiology: Nicardipine drip Renal: Traumatic [place]o insertion. [place] placed by Urology Only can be removed by Urology. Fluid goal @ 75 mls/hr. The patient is critically ill due to intraventricular hemorrhage and acute encephalopathy requiringclose neurological and hemodynamic monitoring and intravenous antihypertensive medications and intravenous sedative management. Critical care time spent is 32 minutes * MIGUEL A Martínez - 07/16/2022 8:27 AM EST Acute Care Speech-Language Pathology Attempt Note 07/16/2022 Attempted Procedure: Hdmwux-Ltmrggbz-Flbddhirc Evaluation Attempted Reason: Patient is not medically optimized to tolerate therapy program (EVD watch). Will re-attempt as able/appropriate. MIGUEL A Martínez Time In: 826 Time Out: 826 Total Visit Time: 0 minutes Total Treatment Time (skilled, billable minutes): 0 minutes * Héctor Araya MD - 07/16/2022 7:27 AM EST NSGY daily prog note S: No acute events, no complaints PE: Temp: [96.5 F (35.8 C)-98.4 F (36.9 C)] 97.9 F (36.6 C) Pulse (Heart Rate): [52-123] 59 Resp Rate: [15-38] 20 BP: (98-159)/(56-77) 121/65 O2 Sat (%): [96 %-100 %] 99 % Weight: [79.3 kg (174 lb 12.8 oz)] 79.3 kg (174 lb 12.8 oz) NAD A&Ox1, does not know location or date PERRL EOMI FS TM 11/27 RUE; 11/27 LUE / RLE; 11/27 LLE SILT Groin c/d/i WBC/Hgb/Hct/Plts: 9.79/12.7/37.3/216 (07/16 9) Na/K+/Phos/Mg/Ca: 141/4.3/3.0/2.0/-- (07/16 9) Bun/Creat/Cl/CO2/Glucose: 20/0.56/111/24/116 (07/16 9) Lab Results Component Value Date INR 1.1 07/14/2022 INR 1.1 07/13/2022 PT 14.0 07/14/2022 PT 13.8 07/13/2022 Intake/Output Summary (Last 24 hours) at 07/16/2022 0727 Last data filed at 07/16/2022 0601 Gross per 24 hour Intake 1951.85 ml Output 1760 ml Net 191.85 ml Imaging: IVH L>R lateral vents and 3rd and 4th dexmedeTOMIDine (PRECEDEX) IV infusion 0.7 mcg/kg/hr (07/16/22 0500) Sodium chloride 0.9% w/potassium cl Stopped (07/16/22 0215) Atorvastatin 80 mg Oral QHS HYDROmorphone Lisinopril 5 mg Oral Daily nicotine 1 patch Transdermal Daily And VERIFY LINKED PATCH PLACEMENT Other Q12H QUEtiapine 25 mg Oral Q12H senna 8.6 mg Oral Daily Tamsulosin HCl 0.4 mg Oral Daily A/P 67 y.o. male hx smoking p/w N/V with diffuse IVH L>R\ S/p dca 07/14 w mcdermott mcdermott - EVD watch - CT today for ventricular size surveillance - INR < 1.5, Platelets > 100, SBP <140 - hold all antiplatelet agents and anticoagulation - MRI brain with and without contrast when able - will revascularize on elective basis after clinic follow up - NCq1 * Razia Andrade, AUTO MECHANICS TEACHER-CHURCH MUSICIAN - 07/16/2022 7:10 AM EST NEUROCRITICAL CARE DAILY NOTE HOSPITAL VISIT DEMOGRAPHICS Patient: Love Skinner Code status: Full Code Admission date: 07/14/2022 3:12 AM Hospital days: LOS: 2 days HISTORY OF PRESENT ILLNESS Lvoe Skinner is a 67 y.o. male with a past history of tobacco-use (0.5 PPD) and marijuana-use. The patient presented to OSH with acute onset severe headache, N&V, LUE drift, and AMS. LKW 07/14 1200. CTH demonstrated hemorrhage in bilateral lateral ventricles L>R. Patient transferred to [facility] for further management. Upon arrival to [facility], he was on a cardene gtt for SBP <140. CTH demonstrated stable-appearing IVHof the bilateral lateral ventricles and basal cistern w/o evidence of hydrocephalus. 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 INTERVAL HISTORY SINCE ADMISSION 07/14/2022: admitted to [facility] 07/15: precedex/seroquel for agitation. Start lisinopril. 07/16 increased seroquel, cth PHYSICAL EXAM GENERAL: Alert, no acute distress. Eating breakfast, sitter at bedside HEENT: normocephalic, no scalp wounds nor lesions, dentures intact CARDIO: +S1S2, RRR, no murmurs, no edema. NSR on tele PULM: diminished to auscultation in bases bilaterally, with expiratory wheeze on R equal chest rise. Respirations unlabored. Tolerating RA ABDOMINAL: flat, soft, nontender, nondistended, active bowel sounds EXTREMITIES: no wounds or lesions VASCULAR: 2+ distal pulses, capillary refill <3 seconds NEURO: Mental status: alert; oriented to person , oriented to place w/ options, reoriented to month, year,and reason for admission Speech/language: object naming intact; repetition intact Cranial nerves: CN II: Visual ponce intact to confrontation. 2mm PERRL. video and sound recorder III, IV and : EOMI. No nystagmus. CN V: Facial sensation intact to light touch. CN VII: Facial strength normal with symmetric movement. CN VIII: Hearing is grossly intact. CN IX and X: Soft palate elevates symmetrically in the midline CN XI: Shoulder shrug and sternocleidomastoid strength 5/5 bilaterally CN XII: Tongue is midline with normal movement; no fasciculations Motor: Normal bulk and tone. No UE drift. 5/5 strength x4 Sensation: Extremity sensation intact throughout. ASSESSMENT AND PLAN Neuro: Bilateral Lateral Ventricular Hemorrhage Bilateral ICA Occlusion with Reconsitution Concern for Mcdermott Mcdermott Headache Acute emcephalopathy likely dur to ivh - IVH Management: - Monitor neurostatus with neurochecks Q2H and pupilometer Q2H - Prevent further expansion with goal SBP <140 (see cards) - 07/14 NSGY consult: possible EVD placement if hydrocephalus - 07/14 DCA: bilateral ICA occlusion with collateral flow from ECA's and posterior circulation - Plans to revascularize once recovered from IVH - Daily NIHSS: NIH Stroke Scale: NIH Level of Conciousness (Provider): 0 NIH LOC Questions (Provider): 2 NIH LOC Commands (Provider): 0 NIH Best Gaze (Provider): 0 NIH Visual (Provider): 0 NIH Facial Palsy (Provider): 0 NIH Left Arm Motor (Provider): 0 NIH Right Arm Motor (Provider): 0 NIH Left Leg Motor (Provider): 0 NIH Right Leg Motor (Provider): 0 NIH Limb Ataxia (Provider): 0 NIH Sensory (Provider): 0 NIH Best Language (Provider): 0 NIH Dysarthria (Provider): 0 NIH Extinction and Inattention (Provider): 0 NIH Total Score (Provider): 2 - Imaging: - 07/13 CTA H/N: occlusion of bilateral internal carotid arteries; 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 No evidence of hydrocephalus. - 07/14 CTH (0630, 6h stability): stable - 07/14 CTH post-DCA: stable, early hydrocephalus - 07/15 CTH: stable ICH, stable mild hydrocephalus -07/16 CTH stable, will follow clinical exam amd repeat prn ,emtal status changes - MRI B w/wo: pending - Concern for mcdermott-mcdermott - 07/14 send: - MARQUEZ: negative - CRP: 3.96 -->10.62->27- will no longer follow - ESR: 8 - RF: <10 - TSH/FT4 reflex: 0.723 - Cytotoxic Cerebral Edema Management: - Goal Na 135 - 145; monitor Na daily Recent Labs 07/13/22 2339 07/14/22 0450 07/15/22 0007 07/16/22 0009 SODIUM 136 138 139 141 OSMOLALITY 288 292 295 299 CHLORIDE 104 105 108 111* - Hemorrhage presumably 2/2 unknown (HTN? Atherosclerotic?) etiology; evaluation for cause and source: - Complete TTE (see cards) - Obtain LDL level and statin therapy if indicated (131) - Obtain HA1C level (5.7) - Defer antiplatelet therapy and therapeutic anticoagulation - Consider urine drug screen on admission if no stroke risk factors: cotinine, THC - Consider hypercoagulability panel 24H-post tPA if no stroke risk factors - Initiate VTE prophylaxis after bleed stability established (see heme) - Pain/Sedation management - Tylenol 650mg Q4H PRN - precedex-wean to off - seroquel 12.5 mg r50z-97/22 increased to 25 ,g, will follow qtc Psych: No Current Issues Pulm: Emphysema Tobacco-Use Marijuana-Use O2 Sat (%): 100 % (07/16 0500) O2 Device: room air (07/16 0400) - Goal SpO2 >92%; wean FiO2 as tolerated - [id number], encourage pulmonary toileting - PRN Duonebs - nicotine patch Cards: HLD Acute htn uncontrolled (resolved) Temp: [96.5 F (35.8 C)-98.4 F (36.9 C)] 96.8 F (36 C) Pulse (Heart Rate): [52-123] 54 Resp Rate: [15-38] 15 BP: (98-159)/(56-77) 134/63 O2 Sat (%): [96 %-100 %] 100 % Weight: [79.3 kg (174 lb 12.8 oz)] 79.3 kg (174 lb 12.8 oz) - Goal SBP <140, MAP >65 - Home antihypertensives: none - cont lisinopril 5 mg daily - cardene gtt-off/dc'd - PRN labetalol and hydralazine - TTE: pending - 07/13 troponin: 3 - 07/14 ECG: NSR, qtc 471 - 07/14 LDL 131, began Atorvastatin 80 mg Recent Labs 07/13/22 2339 CHOLESTEROL 195 TRIG 63 HDL 51 LDL 131 Renal/: Hypocalcemia Traumatic [place] placement BPH Acute urinary Retention - Fluid Balance: - Goal: euvolemia Intake/Output Summary (Last 24 hours) at 07/16/2022 0710 Last data filed at 07/16/2022 0601 Gross per 24 hour Intake 1951.85 ml Output 1820 ml Net 131.85 ml - BPH/traumatic [place] placement: - Start flomax - [place] placed per urology, appreciate recs: - Recommend keeping catheter in place for 72h (at least until 12/23 AM) prior to a trial of void - This was a complex catheter placement, the catheter is NOT to be removed prior to the above date w/o first discussing w/ the Urology consults team - Maintenance: 0.9NS w/ 20 KCl @ 75 mL/hr, Total fluid goal 75 ml/h-HW - Daily Chem 10; electrolytes replaced per [facility] protocol Recent Labs 07/15/22 0007 07/16/22 0009 SODIUM 139 141 POTASSIUM 4.0 4.3 CHLORIDE 108 111* CO2 23 24 BUN 22 20 CREATSERUM 0.76 0.56* MAGNESIUM 2.3 2.0 PHOSPHORUS 2.3 3.0 ICA 4.47* 4.72 GI/Nutrition: No Current Issues Recent Labs 07/13/22 2339 ALBUMIN 4.2 BILIDIRECT 0.2 BILITOTAL 1.5* ALKPHOS 57 ALT 16 AST 18 TP 7.0 - DIET REGULAR - Sherry Swallow Screening Result: passed=cleared for oral intake - Consult nutrition for malnutrition screening - There is no height or weight on file to calculate BMI. - 07/13 LFT: WNL - Bowel regimen: - Last Bowel Movement: (CREDIT NEGOTIATOR) - Senna, prn miralax Endo: Risk for Stress-Induced Hyperglycemia - Goal blood glucose 140-180 - monitor for need for SSI - 07/13 hgb a1c: 5.7 Recent Labs 07/13/22 2339 07/14/22 0235 07/14/22 0450 07/14/22 1223 07/15/22 0007 07/16/22 0009 GLUCOSE 137* < > 135* 118* 110* 116* HGBA1C 5.7* -- -- -- -- -- < > = values in this interval not displayed. ID: Acute Leukocytosis 2/2 acute stress/IVH (resolved) Recent Labs 07/15/22 0007 07/16/22 000 WBC 13.44* 9.79 - Temp (24hrs), Av.5 F (36.4 C), Min:96.5 F (35.8 C), Max:98.4 F (36.9 C) - PRN Tylenol for T>100.4F - Most recent and positive cultures: Date Collected Source Result Date Finalized 07/14 UA negative 07/14 MRSA swab negative - Antiinfectives: Start Date Antiinfective Coverage Course Length Stop Date 07/14 Ancef Urethral trauma x1 dose 07/14 Heme/Onc: No Current Issues Recent Labs 07/13/22 2339 07/14/22 0450 07/15/22 0007 07/16/22 0009 WBC 14.04* 13.06* 13.44* 9.79 RBC 4.76 4.42 4.23* 4.09* HGB 14.6 13.6 13.0* 12.7* HCT 43.0 40.2 38.4* 37.3* PLATELET 260 242 227 216 PT 13.8 14.0 -- -- PTT 34.3 33.6 -- -- INR 1.1 1.1 -- -- - Goal plt >100, INR <1.4, Hgb >7 Musc: No Current Issues - PT/OT consulted and following - Current Activity Order: AAT Social/Dispo: - Code status: Full Code - Primary Emergency Contact: Rajiv Skinner - 07/15: pt's updated via phone - Discharge planning per PCROctavio/SW. - ICU diary updated: 07/15 ICU Checklist: [ ] CAM-ICU [ ] ICU diary update 07/16 [x ] DVT ppx; [x ] SCDs; [ ] Lovenox possible 07/17 per NS, [ ] heparin [ ] Stress ulcer prophylaxis: none - Lines/Tubes: [place]: CVC: [place]: inserted 07/14, (indication: BPH,urinary retention-see above) Rectal tube: Enteral access: Patient seen and plan of care discussed with NCCU Attending, Dr. Marquez. RADHA Mora Service pager: [phone] Service [place] #: [phone] (Beds [phone] and beds), [place] #: [phone] (Beds [phone] and [facility] beds) 07/16/22 7:10 AM * MIGUEL A Martínez - 07/15/2022 2:21 PM EST Acute Care Speech-Language Pathology Attempt Note 07/15/2022 Attempted Procedure: Ttkjzw-Bzcdqlgp-Obazvzkiv Evaluation Attempted Reason: Patient is not medically optimized to tolerate therapy program. Will re-attempt as able/appropriate. MIGUEL A Martínez Time In: 1421 Time Out: 1421 Total Visit Time: 0 minutes Total Treatment Time (skilled, billable minutes): 0 minutes * Lisa Balbuena PT - 07/15/2022 1:56 PM EST Physical Therapy Attempt Note 07/15/2022 PT Therapy Completed: Attempted Attempted Reason: Patient is not medically optimized to tolerate therapy program, per RN. Poor command following and agitation. Lisa Balbuena PT Time In: 1355 Time Out: 1355 Total Visit Time: 0 minutes Total Treatment Time (skilled, billable minutes): 0 minutes * Cathleen Manuel OT - 07/15/2022 1:56 PM EST Occupational Therapy Attempt Note 07/15/2022 OT Therapy Completed: Attempted Attempted Reason: Patient is not medically optimized to tolerate therapy program. Per conversation with RN, pt with RASS of 3/increased agitation and not able to safely participate at this time. Willre-attempt as able/appropriate. Cathleen Manuel OT Time In: 1355 Time Out: 1355 Total Visit Time: 0 minutes Total Treatment Time (skilled, billable minutes): 0 minutes * Lilli Quinones - 07/15/2022 11:29 AM EST Discharge Planning Patient Assessment Admission Assessment Patient Assessment Completed: Initial Anticipated discharge disposition: Inpatient Rehab Facility (vs Home) Reason for Admission: interventricular hemorrhage. suspected Mcdermott mcdermott Is the patient able to participate in the assessment?: Yes Information source: Patient Information Source Name/Contact: Love Skinner Demographics Verified and Updated: Yes Has the patient been admitted to any hospital in the last 30 days?: Transferred From Outside Hospital Advanced Care Planning Has the patient completed Advance Directives?: Not Completed Referral to Social Work for Advance Care Planning? : Patient Declines Legal Next of Kin Does the patient have a Guardian?: No Spouse: Yes Referral to Social Work to Identify Legal Next of Kin?: No Reviewed and Updated in Demographics? : Yes Outpatient Providers Does patient have a primary care physician? : No Is the patient agreeable to a referral or information on a primary care physician?: (pt does not have ins, Financial contacted to screen for SBO and hcap for ability to follow up with [facility] providers.) Does the patient follow any specialists?: No No care food service team member to display Environment/Caregivers Is the patient from a facility or nursing home?: No Patient lives with: Spouse or Partner Living Environment: House How many steps does the patient have to navigate to enter or inside the home? : 0STE, bed and bath 2nd fl Does the patient have a first floor set-up with bed and bathroom?: No Patient Caregiving Responsibilities: Self, Other (livestock) Patient-identified caregiver/support network: Family Who does the patient identify as a teachable caregiver(s)?: Other Family Services Does the patient use a home health or hospice agency?: No Current with dialysis?: No Does the patient use any community programs or services?: No Does patient use DME? : none Does the patient use oxygen?: No Does patient use medical supplies? : none Anticipated Changes Related to Illness/Injury? : Unknown at this time Initial ADLs Prior to Arrival What is the patient's baseline physical functioning prior to this acute illness?: independent What is the patient's baseline cognitive functioning prior to this acute illness?: independent Is the patient's baseline functioning changed by this acute illness? : Yes Changes observed : Physical, Cognitive Concerns with patient being able to care for themselves at home? : Unable to assess (will require 24 hr supervision - may need rehab services) Are there therapy or specialists consults?: Yes Select consult type: PT, OT, MICROBIOLOGICAL LAB TECHNICIAN Does the patient's home require any home modifications for discharge? : Unknown at this time CM to recommend therapy or other consults? : No Medication Management Does the patient have prescription insurance coverage? : No Is the patient on Anticoagulation? : No No Pharmacies Listed Cnc Milling Machinist Does the patient or in home sales representative express financial concerns? 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) Coping/Stress Concerns about patient s coping and stress?: No Concerns about patient s caregiver s coping and stress?: No Values and Beliefs Cultural or worship practices that may impact discharge planning and/or medical care?: No Initial Discharge Planning Anticipated discharge disposition: Inpatient Rehab Facility (vs Home) Anticipated DME: unknown at this time Anticipated Services at Discharge: Occupational Therapy, Physical Therapy Patient Assessment Completed: Initial Risk of Readmission: 4.2 Category Reference: High:16-100 Mod-High:10-16 Mod-Low: 5-10 Low: 0-5 Expected Discharge Date: Readmission Summary and Discharge Planning Narrative Family reports ability to preovide 24 hr care. has spoken with [facility] financial, pt is being screened for HCAP and SBO is over income for medicaid. is also starting the process of medicare application. Infromation for free clinics was placed in [facility] Case Management Plan -Possible need for post acute services., Will monitor for team recommendations of level of care andprovide list of potential providers as appropriate. - Pt will be provided instructions on follow-up appointments, - Pt will be provided instructions/ information on the warning signs and symptoms which may indicate the need to seek medical attention Lilli BROTHERS/Keith, [facility], [facility] Production Underwriter * Samir Marquez MD - 07/15/2022 10:58 AM EST The patient was seen and examined on 07/15/2022. The plan was formulated on the same day. Please refer to the UDAY note for additional details. Agitation and confusion overnight Ct head is stable. Plan: Neurological: IVH Acute encephalopathy Nicardipine drip SBP < 140 Normonatremia DCA with mcdermott mcdermott precedex drip. Respiratory: RA. Cardiology: Nicardipine drip Renal: Traumatic [place] insertion. [place] placed by Urology Only can be removed by Urology. Fluid goal @ 75 mls/hr. The patient is critically ill due to intraventricular hemorrhage and acute encephalopathy requiringclose neurological and hemodynamic monitoring and intravenous antihypertensive medications and intravenous sedative management. Critical care time spent is 32 minutes * Annie Hutchins APRN-CHURCH MUSICIAN - 07/15/2022 8:58 AM EST Neurovascular Stroke Service Intracerebral Hemorrhage Note IDENTIFYING INFORMATION Love Skinner MR# [id number] 07/15/2022 HISTORY OF PRESENT ILLNESS Love Skinner is a 67 y.o. male with PMH significant for tobacco use disorder who presented to [facility] EDwith nausea, vomiting, and headache found to have interventricular hemorrhage. Symptoms started around 1200 on 07/13/2022 while he was working. He was taken to OSH where CTH demonstrated bilateral IVH L>R. He was transferred to [facility] for further work-up. He does not take any anticoagulants or antiplatelets. He arrived on cardene drip and SBP less than 140. NIH 3 on arrival for LUE weakness and confusion. INTERVAL HISTORY 07/14: DCA pending today to evaluate for suspected Mcdermott Mcdermott and IVH etiology 07/15: DCA completed, TTE and MRI brain pending PHYSICAL EXAM Gen: awake, alert, NAD HEENT: normocephalic, no scalp lesions or tenderness, PERRLA, EOMI Neck: trachea midline, no JVD CV: +S1S2, RRR, no m/r/g Lungs: LCTA bilaterally with equal chest rise Abd: soft, nontender, nondistended, +BS x4 quadrants Extrem: Warm and well perfused, no cyanosis, clubbing, edema, 2+ pulses bilaterally Neuro: Oriented x4, ARAGON x4, sensation intact and equal bilaterally CN II - All visual ponce intact CN II/III - PERRLA CN III/IV/ - EOMI CN V - Light touch to face intact in all 3 divisions CN VII - Facial movement intact and symmetrical bilaterally CN VIII - Hearing intact CN X - Cough present CN XI - muscular movement of shoulders and sternocleidomastoid muscles intact and equal bilaterally CN XII - midline protrusion of tongue MOTOR EXAMINATION: no drift noted. Finger to nose testing with LUE/RUE with ataxia. NIHSS Provider NIH Stroke Scale NIH Interval (Provider): daily NIH Level of Conciousness (Provider): 0 NIH LOC Questions (Provider): 0 NIH LOC Commands (Provider): 0 NIH Best Gaze (Provider): 0 NIH Visual (Provider): 0 NIH Facial Palsy (Provider): 0 NIH Left Arm Motor (Provider): 0 NIH Right Arm Motor (Provider): 0 NIH Left Leg Motor (Provider): 0 NIH Right Leg Motor (Provider): 0 NIH Limb Ataxia (Provider): 2 NIH Sensory (Provider): 0 NIH Best Language (Provider): 0 NIH Dysarthria (Provider): 0 NIH Extinction and Inattention (Provider): 0 NIH Total Score (Provider): 2 Intracerebral Hemorrhage Volume Intracerebral Hemorrhage Score Score 30 Day Mortality following ICH 0 0% Mortality 1 13% Mortality 2 26% Mortality 3 72% Mortality 4 97% Mortality 5 100% Mortality ASSESSMENT AND PLAN Neuro: IVH, ICH score 1 CTH on arrival: IVH L > R, stable from outside hospital CTA: no spot sign. 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 -Antiplatelet therapy is not indicated. -Anticoagulation therapy not indicated in hemorrhagic stroke -Patients LDL 131 and HgbA1c were checked and the patient will be discharged on atorvastatin 80 mg -Dysphagia screening ordered, and will be completed prior to patient receiving oral intake. -Stroke education booklet has been provided both written and verbal education to the patient and family regarding hemorrhagic strokes. We have reviewed the patient's personal modifiable risk factors as well as education on reducing these risk factors. -Patient is being assessed for Rehab by PT/OT/Speech and PM&R if indicated. RADHA Kee 07/15/2022 8:58 AM VITAL SIGNS Temp: [97.7 F (36.5 C)-98.6 F (37 C)] 98 F (36.7 C) Pulse (Heart Rate): [67-101] 85 Resp Rate: [16-49] 21 BP: (107-153)/(53-70) 130/62 O2 Sat (%): [93 %-98 %] 97 % Weight: [73.8 kg (162 lb 11.2 oz)] 73.8 kg (162 lb 11.2 oz) IMAGING/DIAGNOSTIC STUDIES CT HEAD WITHOUT CONTRAST Final Result IMPRESSION: Stable examination as compared to earlier the same day. Stable intraventricular hemorrhage and ventricular size with mild dilatation of the temporal horns which may reflect mild/early hydrocephalus. CARDIOGRAM (Results Pending) FLUORO IMAGING FOR NEURO ENDOVASCULAR (Results Pending) CT HEAD WITHOUT CONTRAST (Results Pending) MEDICATIONS Atorvastatin 80 mg Oral QHS Lisinopril 5 mg Oral Daily nicotine 1 patch Transdermal Daily And VERIFY LINKED PATCH PLACEMENT Other Q12H senna 8.6 mg Oral Daily Tamsulosin HCl 0.4 mg Oral Daily * Waleska Briggs, AUTO MECHANICS TEACHER-CHURCH MUSICIAN - 07/15/2022 7:44 AM EST NEUROCRITICAL CARE DAILY NOTE HOSPITAL VISIT DEMOGRAPHICS Patient: Love Skinner Code status: No Order Admission date: 07/14/2022 3:12 AM Hospital days: LOS: 1 day HISTORY OF PRESENT ILLNESS oLve Skinner is a 67 y.o. male with a past history of tobacco-use (0.5 PPD) and marijuana-use. The patient presented to OSH with acute onset severe headache, N&V, LUE drift, and AMS. LKW 07/14 1200. CTH demonstrated hemorrhage in bilateral lateral ventricles L>R. Patient transferred to [facility] for further management. Upon arrival to [facility], he was on a cardene gtt for SBP <140. CTH demonstrated stable-appearing IVHof the bilateral lateral ventricles and basal cistern w/o evidence of hydrocephalus. 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 INTERVAL HISTORY SINCE ADMISSION 07/14/2022: admitted to NCCU 07/15: precedex/seroquel for agitation. Start lisinopril. PHYSICAL EXAM GENERAL: Alert, no acute distress. Agitated at times HEENT: normocephalic, no scalp wounds nor lesions, dentures intact CARDIO: +S1S2, RRR, no murmurs, no edema. NSR on tele PULM: diminished to auscultation bilaterally, equal chest rise. Respirations unlabored. Tolerating RA ABDOMINAL: flat, soft, nontender, nondistended, active bowel sounds EXTREMITIES: no wounds or lesions VASCULAR: 2+ distal pulses, capillary refill <3 seconds NEURO: Mental status: alert; oriented to person and president Speech/language: object naming intact; repetition intact Cranial nerves: CN II: Visual ponce intact to confrontation. 2mm PERRL. video and sound recorder III, IV and : EOMI. No nystagmus. CN V: Facial sensation intact to light touch. CN VII: Facial strength normal with symmetric movement. CN VIII: Hearing is grossly intact. CN IX and X: Soft palate elevates symmetrically in the midline CN XI: Shoulder shrug and sternocleidomastoid strength 5/5 bilaterally CN XII: Tongue is midline with normal movement; no fasciculations Motor: Normal bulk and tone. No UE drift. 5/5 strength x4 Sensation: Extremity sensation intact throughout. Coordination: No ataxia, dysmetria FTS ASSESSMENT AND PLAN Neuro: Bilateral Lateral Ventricular Hemorrhage Bilateral ICA Occlusion with Reconsitution Concern for Mcdermott Mcdermott Headache - IVH Management: - Monitor neurostatus with neurochecks Q2H and pupilometer Q2H - Prevent further expansion with goal SBP <140 (see cards) - 07/14 NSGY consult: possible EVD placement if hydrocephalus - 07/14 DCA: bilateral ICA occlusion with collateral flow from ECA's and posterior circulation - Plans to revascularize once recovered from IVH - Daily NIHSS: NIH Stroke Scale: NIH Level of Conciousness (Provider): 0 NIH LOC Questions (Provider): 2 NIH LOC Commands (Provider): 0 NIH Best Gaze (Provider): 0 NIH Visual (Provider): 0 NIH Facial Palsy (Provider): 0 NIH Left Arm Motor (Provider): 0 NIH Right Arm Motor (Provider): 0 NIH Left Leg Motor (Provider): 0 NIH Right Leg Motor (Provider): 0 NIH Limb Ataxia (Provider): 0 NIH Sensory (Provider): 0 NIH Best Language (Provider): 0 NIH Dysarthria (Provider): 0 NIH Extinction and Inattention (Provider): 0 NIH Total Score (Provider): 2 - Imaging: - 07/13 CTA H/N: occlusion of bilateral internal carotid arteries; 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 No evidence of hydrocephalus. - 07/14 CTH (0630, 6h stability): stable - 07/14 CTH post-DCA: stable, early hydrocephalus - 07/15 CTH: stable ICH, stable mild hydrocephalus - MRI B w/wo: pending - Concern for mcdermott-mcdermott - 07/14 send: - MARQUEZ: negative - CRP: 3.96 -->10.62 - ESR: 8 - RF: <10 - TSH/FT4 reflex: 0.723 - Cytotoxic Cerebral Edema Management: - Goal Na 135 - 145; monitor Na QHS Recent Labs 07/13/22 2339 07/14/22 0450 07/15/22 0007 SODIUM 136 138 139 OSMOLALITY 288 292 295 CHLORIDE 104 105 108 - Hemorrhage presumably 2/2 unknown (HTN? Atherosclerotic?) etiology; evaluation for cause and source: - Complete TTE (see cards) - Obtain LDL level and statin therapy if indicated (131) - Obtain HA1C level (5.7) - Defer antiplatelet therapy and therapeutic anticoagulation - Consider urine drug screen on admission if no stroke risk factors: cotinine, THC - Consider hypercoagulability panel 24H-post tPA if no stroke risk factors - Initiate VTE prophylaxis after bleed stability established (see heme) - Pain/Sedation management - Tylenol 650mg Q4H PRN - precedex - seroquel 12.5 mg q12h Psych: No Current Issues Pulm: Emphysema Tobacco-Use Marijuana-Use O2 Sat (%): 95 % (07/15 0600) O2 Device: room air (07/14 2000) - Goal SpO2 >92%; wean FiO2 as tolerated - [id number], encourage pulmonary toileting - PRN Duonebs - nicotine patch Cards: HLD Temp: [97.7 F (36.5 C)-98.6 F (37 C)] 98 F (36.7 C) Pulse (Heart Rate): [67-101] 70 Resp Rate: [16-49] 24 BP: (107-153)/(53-70) 115/57 O2 Sat (%): [92 %-98 %] 95 % Weight: [73.8 kg (162 lb 11.2 oz)] 73.8 kg (162 lb 11.2 oz) - Goal SBP <140, MAP >65 - Home antihypertensives: none - start lisinopril 5 mg daily - cardene gtt - PRN labetalol and hydralazine - TTE: pending - 07/13 troponin: 3 - 07/14 ECG: NSR, qtc 471 - 07/14 LDL 131, began Atorvastatin 80 mg Recent Labs 07/13/22 2339 CHOLESTEROL 195 TRIG 63 HDL 51 LDL 131 Renal/: Hypocalcemia Traumatic [place] placement BPH Acute urinary Retention - Fluid Balance: - Goal: euvolemia Intake/Output Summary (Last 24 hours) at 07/15/2022 0744 Last data filed at 07/15/2022 0725 Gross per 24 hour Intake 3007.99 ml Output 1870 ml Net 1137.99 ml - BPH/traumatic [place] placement: - Start flomax - [place] placed per urology, appreciate recs: - Recommend keeping catheter in place for 72h (at least until 12/23 AM) prior to a trial of void - This was a complex catheter placement, the catheter is NOT to be removed prior to the above date w/o first discussing w/ the Urology consults team - Maintenance: 0.9NS w/ 20 KCl @ 75 mL/hr, Total fluid goal 75 ml/h - Daily Chem 10; electrolytes replaced per N[facility]U protocol Recent Labs 07/14/22 0450 07/15/22 0007 SODIUM 138 139 POTASSIUM 3.9 4.0 CHLORIDE 105 108 CO2 23 23 BUN 14 22 CREATSERUM 0.78 0.76 MAGNESIUM 1.9 2.3 PHOSPHORUS 2.8 2.3 ICA 4.49* 4.47* GI/Nutrition: No Current Issues Recent Labs 07/13/22 2339 ALBUMIN 4.2 BILIDIRECT 0.2 BILITOTAL 1.5* ALKPHOS 57 ALT 16 AST 18 TP 7.0 - DIET REGULAR - [place] Swallow Screening Result: passed=cleared for oral intake - Consult nutrition for malnutrition screening - There is no height or weight on file to calculate BMI. - 07/13 LFT: WNL - Bowel regimen: - Last Bowel Movement: (CREDIT NEGOTIATOR) - Senna, prn miralax Endo: Risk for Stress-Induced Hyperglycemia - Goal blood glucose 140-180 - monitor for need for SSI - 07/13 hgb a1c: 5.7 Recent Labs 07/13/22 2339 07/14/22 0235 07/14/22 0450 07/14/22 1223 07/15/22 0007 GLUCOSE 137* 125* 135* 118* 110* HGBA1C 5.7* -- -- -- -- ID: Acute Leukocytosis 2/2 acute stress/IVH Recent Labs 07/14/22 0450 07/15/22 0007 WBC 13.06* 13.44* - Temp (24hrs), Av.2 F (36.8 C), Min:97.7 F (36.5 C), Max:98.6 F (37 C) - PRN Tylenol for T>100.4F - Most recent and positive cultures: Date Collected Source Result Date Finalized 07/14 UA negative 07/14 MRSA swab negative - Antiinfectives: Start Date Antiinfective Coverage Course Length Stop Date 07/14 Ancef Urethral trauma x1 dose 07/14 Heme/Onc: No Current Issues Recent Labs 07/13/22 2339 07/14/22 0450 07/15/22 0007 WBC 14.04* 13.06* 13.44* RBC 4.76 4.42 4.23* HGB 14.6 13.6 13.0* HCT 43.0 40.2 38.4* PLATELET 260 242 227 PT 13.8 14.0 -- PTT 34.3 33.6 -- INR 1.1 1.1 -- - Goal plt >100, INR <1.4, Hgb >7 Musc: No Current Issues - PT/OT consulted and following - Current Activity Order: AAT Social/Dispo: - Code status: No Order - Primary Emergency Contact: Rajiv Skinner - 07/15: pt's updated via phone - Discharge planning per PCROctavio/[place]. - ICU diary updated: 07/15 ICU Checklist: [ ] CAM-ICU [x ] DVT ppx; [x ] SCDs; [ ] Lovenox possible 07/16 per NS, [ ] heparin [ ] Stress ulcer prophylaxis: none - Lines/Tubes: [place]: CVC: [place]: inserted 07/14, (indication: BPH,urinary retention) Rectal tube: Enteral access: Patient seen and plan of care discussed with NCCU Attending, Dr. Marquez. RADHA Salinas Service pager: [phone] Service [place] #: [phone] (Beds [phone] and beds), [place] #: [phone] (Beds [phone] and [facility]) 07/15/22 7:44 AM * Charlene Syed PA-C - 07/15/2022 7:17 AM EST NEUROCRITICAL CARE HISTORY AND PHYSICAL HOSPITAL VISIT DEMOGRAPHICS Patient: Love Skinner Code status: No Order Admission date: 07/14/2022 3:12 AM Hospital days: LOS: 1 day CHIEF COMPLAINT IVH w/ concern for obstructive hydrocephalus HISTORY OF PRESENT ILLNESS Love Skinner is a 67 y.o. male with a past history of tobacco-use (0.5 PPD) and marijuana-use. The patient presented to OSH with acute onset severe headache, N&V, LUE drift, and AMS. LKW 07/13 1200. CTH demonstrated hemorrhage in bilateral lateral ventricles L>R. [facility] management. Upon arrival to [facility], he was on a cardene gtt for SBP <140. CTH demonstrated stable-appearing IVHof the bilateral lateral ventricles and basal cistern w/o evidence of hydrocephalus. 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 INTERVAL HISTORY SINCE ADMISSION 07/14/2022: admitted to N[facility]U, DCA, CTH, [place] placed by urology, start diet 07/15: precedex and seroquel for agitation, start lisinopril, sitter PHYSICAL EXAM GENERAL: Alert, agitated. Aware only to self. HEENT: normocephalic, no scalp wounds nor lesions, dentures intact CARDIO: +S1S2, RRR, no m/r/g, no edema PULM: speaks in full sentences. Room air. ABDOMINAL: flat soft, nontender, nondistended, active bowel sounds EXTREMITIES: no wounds or lesions VASCULAR: 2+ distal pulses NEURO: Alert only to self. EOMI intact. Follows commands. Hearing intact. Object naming intact. 5/5strength in bilateral and lower extremities. No UE drift. ASSESSMENT AND PLAN Neuro: Bilateral Lateral Ventricular Hemorrhage Bilateral ICA Occlusion with Reconsitution Concern for Mcdermott Mcdermott Headache - IVH Management: - Monitor neurostatus with neurochecks Q2H and pupilometer Q2H - Prevent further expansion with goal SBP <140 (see cards) - 07/14 NSGY consult: possible EVD placement if hydrocephalus -07/14 DCA: ICA occlusion bilaterally with developmental of collateral flow from ECA's and posterior circulation. Daily NIHSS: NIH Stroke Scale: NIH Level of Conciousness (Provider): 0 NIH LOC Questions (Provider): 2 NIH LOC Commands (Provider): 0 NIH Best Gaze (Provider): 0 NIH Visual (Provider): 0 NIH Facial Palsy (Provider): 0 NIH Left Arm Motor (Provider): 0 NIH Right Arm Motor (Provider): 0 NIH Left Leg Motor (Provider): 0 NIH Right Leg Motor (Provider): 0 NIH Limb Ataxia (Provider): 0 NIH Sensory (Provider): 0 NIH Best Language (Provider): 0 NIH Dysarthria (Provider): 0 NIH Extinction and Inattention (Provider): 0 NIH Total Score (Provider): 2 - Imaging: - 07/13 CTA H/N: occlusion of bilateral internal carotid arteries; 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 No evidence of hydrocephalus. - 07/14: 6H-stability CT H: stable -07/14 CT H post DCA: Stable. Mild hydrocephalus. -07/15: CT H: Stable, no midline shift or mass effect. Mild hydrocephalus - MRI B WWO: pending - Cytotoxic Cerebral Edema Management: - Goal Na 135 - 145; monitor Na QHS Recent Labs 07/13/22 2339 07/14/22 0450 07/15/22 0007 SODIUM 136 138 139 OSMOLALITY 288 292 295 CHLORIDE 104 105 108 - Hemorrhage presumably 2/2 unknown (HTN? Atherosclerotic?) etiology; evaluation for cause and source: - Complete TTE ordered - Obtain LDL level and statin therapy if indicated (see cards) - Obtain HA1C: 5.7% - Defer antiplatelet therapy and therapeutic anticoagulation - Consider urine drug screen on admission if no stroke risk factors - Consider hypercoagulability panel 24H-post tPA if no stroke risk factors - Initiate VTE prophylaxis after bleed stability established (see heme) Mcdermott Mcdermott Workup: -07/14: - MARQUEZ: negative - ESR 8 - CRP 10.62 - RF<10 -TSH: 0.723 -07/15: NSGY plan to revascularize bilateral carotids once IVH stable - Pain/Sedation management - Precedex gtt-- agitation 07/15 -Seroquel 12.5 mg Q12H- 07/15 - Dilaudid 0.5 mg x1 for agitation 07/15 -Tylenol 650mg Q4H PRN Psych: Agitation 07/15: Pt was started on precedex gtt,12.5 mg Q12H Seroquel Pulm: Emphysema Tobacco-Use Marijuana-Use O2 Sat (%): 95 % (07/15 0600) O2 Device: room air (07/14 2000) - Goal SpO2 >92%; wean FiO2 as tolerated - GFA7OQI, encourage pulmonary toileting - PRN Duonebs Cards: HLD Hypertension Temp: [97.7 F (36.5 C)-98.7 F (37.1 C)] 97.7 F (36.5 C) Pulse (Heart Rate): [67-101] 70 Resp Rate: [16-49] 24 BP: (107-153)/(53-70) 115/57 O2 Sat (%): [92 %-98 %] 95 % Weight: [73.8 kg (162 lb 11.2 oz)] 73.8 kg (162 lb 11.2 oz) - Goal SBP <140, MAP >65 - Home antihypertensives: none Current Regimen: -Nicardipine gtt-(POA from OSH) -Lisonpril 5 mg- 07/15 - PRN labetalol and hydralazine - TTE: pending - 07/13 troponin: 3 - 07/14 ECG: NSR -07/13: LDL: 131 - Statin Therapy: Indicated if LDL >70; began Atorvastatin 80 mg Recent Labs 07/13/22 2339 CHOLESTEROL 195 TRIG 63 HDL 51 LDL 131 Renal/: BPH Urinary Retention Traumatic [place] Placement w/ false lumen Hypocalcemia - Fluid Balance: - Goal: Fluid goal of 75 mL/hr Intake/Output Summary (Last 24 hours) at 07/15/2022 0717 Last data filed at 07/15/2022 0559 Gross per 24 hour Intake 3007.99 ml Output 2110 ml Net 897.99 ml BPH: - Start flomax Traumatic [place] Placement: -- [place]ledo placed per urolog - Recommend keeping catheter in place for 72h (at least until 12/23 AM) prior to a trial of void, the catheter is NOT to be removed prior to the above date w/o first discussing w/ the Urology consults team. - Maintenance: 0.9NS w/ 20 KCl @ 0-75 mL/hr - Daily Chem 10; electrolytes replaced per NCCU protocol Recent Labs 07/14/22 0450 07/15/22 0007 SODIUM 138 139 POTASSIUM 3.9 4.0 CHLORIDE 105 108 CO2 23 23 BUN 14 22 CREATSERUM 0.78 0.76 MAGNESIUM 1.9 2.3 PHOSPHORUS 2.8 2.3 ICA 4.49* 4.47* GI/Nutrition: No Current Issues Recent Labs 07/13/222338 ALBUMIN 4.2 BILIDIRECT 0.2 BILITOTAL 1.5* ALKPHOS 57 ALT 16 AST 18 TP 7.0 - DIET REGULAR - Zullinger Swallow Screening Result: passed=cleared for oral intake - 07/14 Start diet. May discontinue fluids once advances diet. - There is no height or weight on file to calculate BMI. - Bowel regimen: - Last Bowel Movement: (CREDIT NEGOTIATOR) - Senna daily, miralax PRN Endo: Risk for Stress-Induced Hyperglycemia - Goal blood glucose 140-180. Monitor need for insulin. Recent Labs 07/13/22 2339 07/14/22 0235 07/14/22 0450 07/14/22 1223 07/15/22 0007 GLUCOSE 137* 125* 135* 118* 110* HGBA1C 5.7* -- -- -- -- Hemoglobin A1c: 5.7% ID: Acute Leukocytosis 2/2 acute stress/IVH Recent Labs 07/14/22 0450 07/15/22 0007 WBC 13.06* 13.44* - Temp (24hrs), Av.3 F (36.8 C), Min:97.7 F (36.5 C), Max:98.7 F (37.1 C) - PRN Tylenol for T>100.4F - Most recent and positive cultures: Date Collected Source Result Date Finalized 07/14 MRSA/MSSA Negative - Antiinfectives: Start Date Antiinfective Coverage Course Length Stop Date 07/14 Ancef Urethral false passage x1 07/14 Heme/Onc: Reactive Leukocytosis Recent Labs 07/13/22 2339 07/14/22 0450 07/15/22 0007 WBC 14.04* 13.06* 13.44* RBC 4.76 4.42 4.23* HGB 14.6 13.6 13.0* HCT 43.0 40.2 38.4* PLATELET 260 242 227 PT 13.8 14.0 -- PTT 34.3 33.6 -- INR 1.1 1.1 -- - Goal plt >100, INR <1.4, Hgb >7 07/15: Per NSGY, no DVT prophylaxis at this time. Likely tomorrow. Musc: No Current Issues - PT/OT consulted and following - Current Activity Order: AAT Social/Dispo: - Code status: No Order - Primary Emergency Contact: Rajiv Skinner - 07/14: Last updated Family. - Discharge planning per PCRM/SW. ICU Checklist: [X ] CAM-ICU [x ] DVT ppx; [x ] SCDs; [ ] Lovenox, [ ] heparin-- Per NSGY, no DVT at this time. Recheck 07/16 [ ] Stress ulcer prophylaxis: - Lines/Tubes: Bita: CVC: [place]: inserted 07/14, (indication:BPH,urinary retention) Rectal tube: Enteral access: Discussed with NCCU Attending, Dr. Marquez. Charlene Syed PA-C Service pager: [phone] Service [place] #: [phone] (Beds [phone] and beds), [place] #: [phone] (Beds [phone] and [facility]) 07/15/22 7:17 AM * Teja Major MD - 07/15/2022 6:45 AM EST NSGY daily prog note S: No acute events, no complaints PE: Temp: [97.7 F (36.5 C)-98.7 F (37.1 C)] 97.7 F (36.5 C) Pulse (Heart Rate): [67-101] 70 Resp Rate: [16-49] 24 BP: (107-153)/(53-70) 115/57 O2 Sat (%): [90 %-98 %] 95 % Weight: [73.8 kg (162 lb 11.2 oz)] 73.8 kg (162 lb 11.2 oz) NAD A&Ox1, does not know location or date PERRL EOMI FS TM 5/ RUE; / LUE / RLE; 11/27 LLE SILT Groin c/d/i WBC/Hgb/Hct/Plts: 13.44/13.0/38.4/227 (07/15 7) Na/K+/Phos/Mg/Ca: 139/4.0/2.3/2.3/-- (07/15 7) Bun/Creat/Cl/CO2/Glucose: 22/0.76/108/23/110 (07/15 7) Lab Results Component Value Date INR 1.1 07/14/2022 INR 1.1 07/13/2022 PT 14.0 07/14/2022 PT 13.8 07/13/2022 Intake/Output Summary (Last 24 hours) at 07/15/2022 0645 Last data filed at 07/15/2022 0559 Gross per 24 hour Intake 3007.99 ml Output 2110 ml Net 897.99 ml Imaging: IVH L>R lateral vents and 3rd and 4th niCARdipine (CARDENE) Infusion 10 mg/hr (07/15/22 0510) Sodium chloride 0.9% w/potassium cl 75 mL/hr at 07/15/22 0501 Atorvastatin 80 mg Oral QHS nicotine 1 patch Transdermal Daily And VERIFY LINKED PATCH PLACEMENT Other Q12H senna 8.6 mg Oral Daily Tamsulosin HCl 0.4 mg Oral Daily A/P 67 y.o. male hx smoking p/w N/V with diffuse IVH L>R\ S/p dca 07/14 w mcdermott mcdermott - EVD watch - neurochecks q1 - INR < 1.5, Platelets > 100, SBP <140 - hold all antiplatelet agents and anticoagulation - MRI brain with and without contrast when able - will revascularize once recovered from IVH * Cathleen Manuel OT - 07/14/2022 2:06 PM EST Acute Occupational Therapy Evaluation Prior to Admission AM-PAC Score: PRIOR LEVEL AM-PAC Activity Raw Score: 24 Current AM-PAC score(s): CURRENT AM-PAC Activity Raw Score: 17 Based on the above AM-PAC score(s) and OT clinical judgment, discharge destination recommendation is: Inpatient Rehab Facility (potential to progress to home with 15/02 supervision) Supporting Factors (would benefit from skilled therapy services): Patient status is anticipated to be appropriate to tolerate inpatient rehab therapy requirements at time of discharge from acute care, Recent decline in functional mobility, Fall risk, Recent decline in cognitive function, Recent decline in self-care abilities, Assistance needed with functional mobility, Impaired functional status,Impaired balance, Decreased endurance Mobility equipment available at home: none used ADL equipment available at home: none Equipment recommendations for discharge: to be determined Current therapy frequency recommendation(s) in acute: 5 times a week Precautions and Weightbearing Status: OT Existing Precautions/Restrictions: fall ([place]) Patient Safety Communication Prior to Visit: Nursing Subjective: Pt alert and agreeable to participate in therapy session. Supine upon arrival. Pain: General Pain Documentation (Adult, OB, Peds) Presence of Pain: denies pain/discomfort Home Setting Residence: House (2 story) Lives With: spouse Second floor setup: bedroom, walk in shower Number of stairs to enter home: 0 Number of stairs in home: (flight to second story) Mobility Equipment Available: none used ADL Equipment Available: none Home Environment Details: Pt questionable historian d/t some delayed processing/at-risk cognition this date. 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 IADL History IADLs: independent Primary Language: Tajik Objective/Observation: Vitals/Vitals Responses to Treatment: stable Respiratory Status O2 Device: room air Vision Screen Currently wearing corrective lenses: No Visual Impairments Observed?: No Speech Speech: no gross deficits noted (flat affect; speech appears grossly WFL) Successful Methods (Communication Strategies): verbal speech Hearing Hearing: no gross deficits noted Cognition Overall Cognitive Status: (at-risk) Arousal/Alertness: Appropriate responses to stimuli Orientation Level: Oriented to person, Oriented to place (states month correctly but year as ' and requires increased time) Following Commands: Follows one step commands without difficulty, Follows one step commands with increased time Safety Judgment: Decreased awareness of need for assistance, Decreased awareness of need for safety Awareness of Errors: Assistance required to correct errors made, Decreased awareness of errors Deficits: Decreased awareness of deficits Attention Span: Attends with cues to redirect, difficulty dividing attention Memory: Decreased recall of recent events Problem Solving: Assistance required to implement solutions, Assistance required to generate solutions Cognition Comments: Pt exhibits some delayed processing and mild confusion. Flat affect. Additionalcues throughout as needed. ADLs: ADL Assessment: Assessed All ADLs ADL Anticipated Performance (ADLs not directly observed this session): Eating, Grooming, UE Dressing, LE Dressing, Toileting, Bathing Eating Assistance: Independent Grooming Assistance: Contact guard assist Bathing Assistance: Minimal UE Dressing Assistance: Stand by LE Dressing Assistance: Minimal Toilet Assistance: Total (toledo; otherwise CGA) Extremity Assessments: RUE Assessment RUE Assessment: Within Functional Limits LUE Assessment LUE Assessment: Within Functional Limits Balance: Sitting Balance Static Sitting-Level of Assistance: Supervision Dynamic Sitting-Level of Assistance: Standby Standing Balance Static Standing-Level of Assistance: Stand-by assist, Contact guard Dynamic Standing-Level of Assistance: Contact guard, Minimum assistance Neuro: Sensation Sensation Comments: denies N/T Gross Coordination Gross Coordination: bilat UE intact Fine Motor Coordination Additional Documentation: (grossly WFL) Mobility Assessment: Supine to Sit Mobility [place] Level: Supine->Sit: stand-by assist Bed Features/Set-up: Supine->Sit: Head of bed elevated, Use of bed rail Skilled Rationale: Verbal cues, Technique of activity, Cues for increased safety, Initiation and execution of task Skilled Intervention/Details: Supine->Sit: Pt requires increased time and cues to initiate transfer. Able to bring LE over EOB and uses UE as needed to propel trunk to upright. Shifts hips anteriorly to approximate feet to floor using UE support with SBA. Transfer Assessment: Sit to Stand Transfer [place] Level: Sit->Stand: contact guard assist Assistive Device: Sit->Stand: gait belt Skilled Rationale: Verbal cues, Technique of activity, Cues for increased safety, Full extension toupright positioning/posture, Positioning Skilled Intervention/Details: Sit->Stand: Pt completes x1 stand from EOB this date. Uses UE to assist with leverage as needed. Mild postural sway upon standing, initial TRAIL CONSTRUCTION WORKER as needed. Stand to Sit Transfer [place] Level: Stand->Sit: contact guard assist Assistive Device: Stand->Sit: gait belt, armed chair Skilled Rationale: Verbal cues, Controlled descent for sitting, Technique of activity, Cues for increased safety Skilled Intervention/Details: Stand->Sit: Demos fair to good eccentric control. Cues to reach back for arm rests to prepare for safe transfer. Functional Mobility: Functional Mobility [place] Level: Functional Mobility/Gait: contact guard assist (intermittent Evin) Assistive Device: Functional Mobility/Gait: gait belt Functional Mobility Distance: Distance needed for limited community mobility Functional Mobility Deficits: Activity tolerance, Balance, Generalized weakness, Slowed gait speed,Attention Functional Mobility Skilled Rationale: Cues for increased safety, Facilitate postural control, Technique of activity, Verbal cues, Cues for cognitive deficit Skilled Intervention/Details - Functional Mobility/Gait: Pt ambulating in hallway this date with some unsteadiness/postural sway and slowed gait speed. No major LOB but increased unsteadiness with occassional need for Evin to correct/ensure stability. No SOB or requirement for rest break, mild fatigue with this activity. Pt with increased difficulty when distracted/dual tasking. Able to assist with locating room number. Outcome Score(s): CURRENT [facility] Daily Activity Inpatient Short Form Putting on/Taking Off Lower Body Clothin - A Little Assistance Bathin - A Little Assistance Toiletin - Total Assistance Putting on/Taking Off Upper Body Clothin - A Little Assistance Groomin - A Little Assistance Eatin - No Assistance CURRENT [facility] Activity Raw Score: 17 CURRENT [facility] Activity Functional Limitation/Modifier: 50.11% Currently Impaired in Daily Activity- CK Assessment & Plan: Patient is a 67 y.o. male with PMH significant for tobacco use disorder who presented to [facility] ED with nausea, vomiting, and headache found to have interventricular hemorrhage. Pt seen for therapy evaluation related to ability to safely/independently complete basic ADL tasks/functional mobility. Exam findings include impairments in: balance, cognitive impairments, transfers, endurance, reaction speed. These impairments contribute to occupational performance limitations including bathing, dressing, grooming, toileting, functional mobility, ADL transfers. Patient will benefit from skilled occupational therapy to address these impairments, occupational performance limitations, and participation restrictions. Patient's rehab potential is: good, to achieve stated therapy goals. Planned Therapy Interventions (OT Eval): ADL retraining, IADL retraining, balance training, functional activity tolerance, transfer training (cognitive training as appropriate) Patient Instruction/Education this session: Patient Instruction: role of OT; plan of care Plan for next session: continue OT plan of care; progression of functional standing tolerance and dynamic balance with ADLs Acute OT Goals Plan of Care by Cathleen Manuel OT at 07/14/2022 1:39 PM Version 1 of 1 Problem: OT - Dressing Goal: Lower Body Dressing Description: Pt will complete LE dressing tasks with modified independence for improved ability to complete self-care activities. Outcome: Ongoing Problem: OT - ADLs Goal: Toileting Description: Pt will complete toileting task including clothing management with modified independence for improved ability to safely complete self-care activities. Outcome: Ongoing Problem: OT - Cognition Goal: Cognition simple ADL Description: Pt will demonstrate improved cognition, completing simple ADL task for 10 minutes withno more than 2 cues required to maintain attention, for improved safety and success at discharge destination. Outcome: Ongoing Problem: OT - Balance Goal: Balance - Standing Description: Pt will perform 10 minutes of functional ADL task in standing with supervision and no major LOB to promote safety and improved balance required for self-care activities. Outcome: Ongoing Problem: OT - Endurance Goal: Endurance Functional Mobilty Around Home Description: Pt will complete distance needed for limited community mobility with supervision and good balance. Outcome: Ongoing Problem: OT - Other Goal: Energy Conservation with ADLs Description: Pt will independently utilize at least 3 energy conservation/pacing strategies during ADL completion to promote success and safety during daily routine. Outcome: Ongoing Evaluating Therapist: Cathleen Manuel OT Additional Details: Co-evaluation/co-treatment performed?: Yes, simultaneous billable skilled care This co-evaluation session performed between OT and PT was beneficial, necessary and provided distinct services in establishing this person's individual plan of care. Medical complexity with functional deficits necessitated two skilled therapy disciplines working concurrently to determine each discipline's goals. This co-treatment was medically necessary due to patient's: initial functional mobility assessment completed with 2 people for safety I was assisted by GARY Gonzalez for today's session. I used facemask, protective eye shield, and gloves in today's patient interaction. OT Evaluation Complexity Occupational Profile and Client History: Moderate - expanded history Assessment of Occupational Performance: Moderate (3-5 performance deficits) Clinical Decision/Performance Deficits: Moderate (detailed assessments w/several treatment options) Time In: 0840 Time Out: 09 Total Visit Time: 24 minutes Total Treatment Time (skilled, billable minutes): 24 minutes Patient location at end of session: chair Alarms on at end of session: chair alarm and RN aware Needs in reach. Upon discontinuation of Acute Care Occupational Therapy Services or patient discharge from the hospital this note represents the current Occupational Therapy Discharge Summary. * MIGUEL A Morton - 07/14/2022 12:10 PM EST Acute Care Speech-Language Pathology Attempt Note 07/14/2022 MICROBIOLOGICAL LAB TECHNICIAN Therapy Completed: Attempted to see pt for a Speech-language/Cognitive Evaluation Attempted Reason: Patient is unavailable due to test/procedure (in the OR). Will re-attempt as able/appropriate. MIGUEL A Morton Time In: 1210 Time Out: 1210 Total Visit Time: 0 minutes Total Treatment Time (skilled, billable minutes): 0 minutes * Samir Marquez MD - 07/14/2022 11:19 AM EST The patient was seen and examined on 07/14/2022. The plan was formulated on the same day. Please refer to the [facility] note for additional details. Admitted for IVH. CTA with bilateral ICA occlusion and mcdermott mcdermott pattern. Exam: non-focal, confusion. Plan: Neurological: IVH Nicardipine drip SBP < 140 Normonatremia DCA Brain MRI. MARQUEZ, ESR, CRP, RF and TSH for workup. Following for the need of EVD. Respiratory: RA. Cardiology: Nicardipine drip Renal: Traumatic [place] insertion. [place] placed by Urology Only can be removed by Urology. Fluid goal @ 75 mls/hr. The patient is critically ill due to intraventricular hemorrhage requiring close neurological and hemodynamic monitoring and intravenous antihypertensive medications. Critical care time spent is 32 minutes. * Lilli Quinones - 07/14/2022 11:18 AM EST Attempted initial discharge planning assessment however pt not available, in OR. Family not available. Will assess as able. Lilli Thornton OTR/L, CCM, [facility] Production Underwriter * Osei Del Castillo RP - 07/14/2022 9:08 AM EST Department of Pharmacy Admission Medication Reconciliation Note Patient: Love Skinner Room/Bed: 1052/A The patient's allergies were not assessed at this time, and I have reviewed the patient's home medication list with the following sources Patient recall without prompting. I have also reviewed this list with the medical team. All changes to the home medication list have been updated in [facility]. Updated CREDIT NEGOTIATOR Med List: None Please feel free to contact me with any further questions. Name: Osei Del Castillo RPH Phone #: [phone] Date/Time: 07/14/2022 11:55 AM Time Spent: 5 minutes * Lisa Balbuena PT - 07/14/2022 9:04 AM EST Acute Physical Therapy Evaluation Prior to Admission [facility] score(s): PRIOR LEVEL AM-PAC Mobility Raw Score: 24 Current AM-PAC score(s): CURRENT AM-PAC Mobility Raw Score: 19 Based on the above AM-PAC score(s) and PT clinical judgment, patient is a good candidate for discharge to Inpatient Rehab Facility (Potential to progress to home with initial 24 hour supervision and assist, and OP PT.) Supporting Factors (would benefit from skilled therapy services): Impaired functional status, Impaired balance, Decreased endurance necessitating skilled therapy services, but able to tolerate therapy requirements for inpatient rehab, Impaired cognitive status, Assistance needed with functional mobility, Fall risk Mobility equipment available at home: none used ADL equipment available at home: none Equipment needed for discharge: to be determined Current therapy frequency recommendation in acute: Therapy Frequency: 5 times a week Precautions and Weightbearing Status: Existing Precautions/Restrictions: fall Urinary catheter, Telemetry Patient Safety Communication Prior to Visit: Nursing Subjective: Pt supine with HOB elevated on arrival. Agreeable to Physical Therapy. Pain: General Pain Documentation (Adult, OB, Peds) Presence of Pain: denies pain/discomfort Home Setting Residence: House (2 story) Lives With: spouse Second floor setup: bedroom, walk in shower Number of stairs to enter home: 0 Number of stairs in home: (flight to second story) Mobility Equipment Available: none used ADL Equipment Available: none Home Environment Details: Pt questionable historian d/t some delayed processing/at-risk cognition this date. 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 Objective/Observation: Vitals/Vitals Responses to Treatment: Stable Respiratory Status O2 Device: room air Cognition Overall Cognitive Status: (At risk) Arousal/Alertness: Appropriate responses to stimuli Orientation Level: Oriented to person, Oriented to place (increased time, correctly indicates June as the month, but reports the year as .) Following Commands: Follows one step commands with increased time, Follows one step commands with repetition Safety Judgment: Decreased awareness of need for assistance, Decreased awareness of need for safety Awareness of Errors: Assistance required to correct errors made Deficits: Decreased awareness of deficits Attention Span: Attends with cues to redirect Memory: Decreased recall of recent events Problem Solving: Assistance required to implement solutions Cognition Comments: Delayed processing. Flat affect. Poor initiation. Vision Screen Currently wearing corrective lenses: No Visual Impairments Observed?: No Speech Speech: no gross deficits noted Successful Methods (Communication Strategies): verbal speech Hearing Hearing: no gross deficits noted Extremity Assessments: RLE Assessment RLE Assessment: Within Functional Limits LLE Assessment LLE Assessment: Within Functional Limits Sensation Overall Sensation: Intact Sensation Comments: Denies numbness/tingling Proprioception Proprioception: intact Skin Integrity Skin Integrity Description: WFL Edema Edema: none noted Mobility Assessment: Supine to Sit Mobility [place] Level: Supine->Sit: stand-by assist Bed Features/Set-up: Supine->Sit: Head of bed elevated, Use of bed rail Skilled Rationale: Verbal cues, Cues for increased safety Skilled Intervention/Details: Supine->Sit: Increased time to achieve upright. Verbal cues to scoot hips to EOB. Balance: Sitting Balance Static Sitting-Level of Assistance: Supervision Dynamic Sitting-Level of Assistance: Standby Skilled Rationale: Cues for increased safety Sitting Balance Skilled Intervention/Details: No LOB while seated EOB. Standing Balance Static Standing-Level of Assistance: Stand-by assist, Contact guard Dynamic Standing-Level of Assistance: Contact guard, Minimum assistance Standing-Balance Support: Gait belt Skilled Rationale: Verbal cues, Full extension to upright positioning/posture, Cues for increased safety Standing Balance Skilled Intervention/Details: Increased postural sway with x1 LOB requiring Min A to correct. Flexed posture. Transfer Assessment: Sit to Stand Transfer [place] Level: Sit->Stand: contact guard assist Assistive Device: Sit->Stand: gait belt Skilled Rationale: Verbal cues, Tactile cues, Facilitate anterior shift, Full extension to upright positioning/posture, Cues for increased safety Skilled Intervention/Details: Sit->Stand: x1 from EOB with increased time to upright. Stand to Sit Transfer [place] Level: Stand->Sit: contact guard assist Assistive Device: Stand->Sit: gait belt, armed chair Skilled Rationale: Verbal cues, Controlled descent for sitting, Cues for increased safety Skilled Intervention/Details: Stand->Sit: Fair to good eccentric control. Verbal cues to reach back prior to sitting. Gait/Functional Mobility: Gait Assessment [place] Level: Gait: contact guard assist Assistive Device: Gait: gait belt Ambulation Distance (Feet): 300 Gait Deviations Identified: decreased gait speed, increased postural sway, flexed posture Gait Skilled Rationale: verbal, upright posture Skilled Intervention/Details - Gait: x1 LOB requiring Min A to correct. Slow speed which he says differs from his baseline. Wheelchair Assessment Patient currently uses wheelchair?: No Stairs: Stairs Assessment [place] Level: Stair Negotiation: not tested Outcome Score(s): CURRENT [facility] Basic Mobility Inpatient Short Form Turning over in bed: 4 - No Assistance Sitting/standing from chair: 3 - A Little Assistance Moving from lying on back to sittin - A Little Assistance Moving to and from bed to chair: 3 - A Little Assistance Walk in hospital room: 3 - A Little Assistance Climbing 3-5 steps with a railin - A Little Assistance CURRENT [facility] Mobility Raw Score: 19 CURRENT [facility] Mobility Functional Limitation/Modifier: 41.77% Currently Impaired in Basic Mobility- CK Interventions: Assessment & Plan: Patient was admitted for H with suspected [place] and seen for therapy evaluation related to impaired functional mobility and fall risk. Exam findings include impairments in: Balance, Posture, Transfers, Gait/Locomotion, Cognition/Arousal/Attention, Aerobic capacity/endurance. These impairments contribute to functional limitations including Decreased ambulation distance/endurance, Difficulty stair climbing/descent, Increased fall risk, Difficulty ambulating on uneven/dynamic surfaces, Limited standing tolerance. Current clinical presentation is Evolving - changing/inconsistent clinical characteristics (Moderate). Patient history factors impacting Plan Of Care include Impaired cognition. Patient will benefit from skilled physical therapy to address these impairments, functional limitations, and participation restrictions and has good rehab potential to achieve therapy goals. Planned Therapy Interventions: balance training, endurance, functional activity tolerance, gait training, transfer training Patient Instruction/Education this session: OOBTC and ambulate TID Plan for next session: Progress standing balance, gait training. Acute PT Goals Plan of Care by Lisa Balbuena PT at 07/14/2022 9:04 AM Version 1 of 1 Problem: PT - Balance/Coordination/Neuro Re-Education Goal: Standing Dynamic/Static Balance Description: Pt will perform standing balance tasks for 15 minutes with supervision with out an assistive device in order to improve functional mobility and safety with standing tasks. Outcome: Ongoing Problem: PT - Mobility Goal: Ambulation Description: Pt will ambulate 500 feet with out an assistive device with supervision to improve ability to navigate home environment. Outcome: Ongoing Goal: Stairs Description: Pt will ascend/descend 12 stairs with railings with supervision with out an assistive device to improve ability to perform functional mobility necessary in recommended discharge environment. Outcome: Ongoing Problem: PT - Transfers Goal: Supine <-> Sit Description: Pt will perform bed mobility with flat bed & no rail with independence in order toimprove functional mobility and safety. Outcome: Ongoing Goal: Sit <-> Stand Description: Pt will perform sit to/from stand transfers with supervision with out an assistive device in order to improve functional mobility and safety. Outcome: Ongoing Lisa Balbuena PT, DPT License #: [id number] Pager #: [phone] Evaluating Therapist: Lisa Balbuena PT Additional Details: Co-evaluation/co-treatment performed?: Yes, simultaneous billable skilled care This co-evaluation session performed between PT and OT was beneficial, necessary and provided distinct services in establishing this person's individual plan of care. Medical complexity with functional deficits necessitated two skilled therapy disciplines working concurrently to determine each discipline's goals. This co-treatment was medically necessary due to patient's: Cognitive issues, Postural control and balance, activity tolerance. I used facemask, protective eye shield, and gloves in today's patient interaction. Evaluation Complexity Components History: Moderate (1-2 personal factors and/or comorbidities) Body Systems Review: Moderate (Addressing a total of 3 or more elements) Clinical Presentation: Evolving - changing/inconsistent clinical characteristics (Moderate) Clinical Decision Making: Moderate Time In: 0840 Time Out: 0904 Total Visit Time: 24 minutes Total Treatment Time (skilled, billable minutes): 24 minutes Patient location at end of session: chair Alarms on at end of session: chair alarm Needs in reach. Upon discontinuation of Acute Care Physical Therapy Services or patient discharge from the hospitalthis note represents the current Physical Therapy Discharge Summary. * Waleska Briggs, ELYSIA-[employer] MUSICIAN - 07/14/2022 8:19 AM EST NEUROCRITICAL CARE DAILY NOTE HOSPITAL VISIT DEMOGRAPHICS Patient: Love Skinner Code status: No Order Admission date: 07/14/2022 3:12 AM Hospital days: LOS: 0 days HISTORY OF PRESENT ILLNESS Love Skinner is a 67 y.o. male with a past history of tobacco-use (0.5 PPD) and marijuana-use. The patient presented to OSH with acute onset severe headache, N&V, LUE drift, and AMS. LKW 07/14 1200. CTH demonstrated hemorrhage in bilateral lateral ventricles L>R. Patient transferred to [facility] further management. Upon arrival to [facility], he was on a cardene gtt for SBP <140. CTH demonstrated stable-appearing IVHof the bilateral lateral ventricles and basal cistern w/o evidence of hydrocephalus. 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 INTERVAL HISTORY SINCE ADMISSION 07/14/2022: admitted to [facility] PHYSICAL EXAM GENERAL: Alert, no acute distress. HEENT: normocephalic, no scalp wounds nor lesions, dentures intact CARDIO: +S1S2, RRR, no murmurs, no edema. NSR on tele PULM: diminished to auscultation bilaterally, equal chest rise. Respirations unlabored. Tolerating RA ABDOMINAL: flat, soft, nontender, nondistended, active bowel sounds EXTREMITIES: no wounds or lesions VASCULAR: 2+ distal pulses, capillary refill <3 seconds NEURO: Mental status: alert; oriented to person only Speech/language: object naming intact; repetition intact Cranial nerves: CN II: Visual ponce intact to confrontation. 2mm PERRL. video and sound recorder III, IV and : EOMI. No nystagmus. CN V: Facial sensation intact to light touch. CN VII: Facial strength normal with symmetric movement. CN VIII: Hearing is grossly intact. CN IX and X: Soft palate elevates symmetrically in the midline CN XI: Shoulder shrug and sternocleidomastoid strength 5/5 bilaterally CN XII: Tongue is midline with normal movement; no fasciculations Motor: Normal bulk and tone. No UE drift. 5/5 strength x4 Sensation: Extremity sensation intact throughout. Coordination: No ataxia, dysmetria FTS ASSESSMENT AND PLAN Neuro: Bilateral Lateral Ventricular Hemorrhage Bilateral ICA Occlusion with Reconsitution Concern for Mcdermott Mcdermott Headache - IVH Management: - Monitor neurostatus with neurochecks Q1H and pupilometer Q1H - Prevent further expansion with goal SBP <140 (see cards) - 07/14 NSGY consult: possible EVD placement if hydrocephalus - 07/14 DCA: bilateral ICA occlusion with collateral flow from ECA's and posterior circulation - Daily NIHSS: NIH Stroke Scale: NIH Level of Conciousness (Provider): 0 NIH LOC Questions (Provider): 2 NIH LOC Commands (Provider): 0 NIH Best Gaze (Provider): 0 NIH Visual (Provider): 0 NIH Facial Palsy (Provider): 0 NIH Left Arm Motor (Provider): 0 NIH Right Arm Motor (Provider): 0 NIH Left Leg Motor (Provider): 0 NIH Right Leg Motor (Provider): 0 NIH Limb Ataxia (Provider): 0 NIH Sensory (Provider): 0 NIH Best Language (Provider): 0 NIH Dysarthria (Provider): 0 NIH Extinction and Inattention (Provider): 0 NIH Total Score (Provider): 2 - Imaging: - 07/13 CTA H/N: occlusion of bilateral internal carotid arteries; 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 No evidence of hydrocephalus. - 07/14 CTH (0630, 6h stability): stable - 07/14 CTH post-DCA: stable, early hydrocephalus - repeat CTH in AM - MRI B w/wo: pending - Concern for mcdermott-mcdermott - 07/14 send: - MARQUEZ: P - CRP: 3.96 - ESR: 8 - RF: <10 - TSH/FT4 reflex: 0.723 - Cytotoxic Cerebral Edema Management: - Goal Na 135 - 145; monitor Na QHS Recent Labs 07/13/22 2339 07/14/22 0450 SODIUM 136 138 OSMOLALITY 288 292 CHLORIDE 104 105 - Hemorrhage presumably 2/2 unknown (HTN? Atherosclerotic?) etiology; evaluation for cause and source: - Complete TTE (see cards) - Obtain LDL level and statin therapy if indicated (see cards) - Obtain HA1C level (see endo) - Defer antiplatelet therapy and therapeutic anticoagulation - Consider urine drug screen on admission if no stroke risk factors: cotinine, THC - Consider hypercoagulability panel 24H-post tPA if no stroke risk factors - Initiate VTE prophylaxis after bleed stability established (see heme) - Pain/Sedation management - Tylenol 650mg Q4H PRN Psych: No Current Issues Pulm: Emphysema Tobacco-Use Marijuana-Use O2 Sat (%): 92 % (07/14 0800) O2 Device: room air (07/14 0500) - Goal SpO2 >92%; wean FiO2 as tolerated - [id number], encourage pulmonary toileting - PRN Duonebs - nicotine patch Cards: [facility] Temp: [98.2 F (36.8 C)-99.2 F (37.3 C)] 98.7 F (37.1 C) Pulse (Heart Rate): [76-108] 76 Resp Rate: [18-28] 20 BP: (116-156)/(58-79) 137/63 O2 Sat (%): [90 %-97 %] 92 % Weight: [77.7 kg (171 lb 4.8 oz)] 77.7 kg (171 lb 4.8 oz) - Goal SBP <140, MAP >65 - Home antihypertensives: none - cardene gtt - PRN labetalol and hydralazine - TTE: pending - 07/13 troponin: 3 - 12/20 ECG: NSR, qtc 471 - 07/14 LDL 131, began Atorvastatin 80 mg Recent Labs 07/13/222338 CHOLESTEROL 195 TRIG 63 HDL 51 LDL 131 Renal/: Hypocalcemia Traumatic [place] placement BPH Acute urinary Retention - Fluid Balance: - Goal: euvolemia Intake/Output Summary (Last 24 hours) at 07/14/2022 0819 Last data filed at 07/14/2022 0727 Gross per 24 hour Intake 179.39 ml Output 1600 ml Net -1420.61 ml - BPH/traumatic [place] placement: - Start flomax - [place] placed per urology, appreciate recs: - Recommend keeping catheter in place for 72h (at least until 07/17 AM) prior to a trial of void - This was a complex catheter placement, the catheter is NOT to be removed prior to the above date w/o first discussing w/ the Urology consults team - Maintenance: 0.9NS w/ 20 KCl @ 75 mL/hr while NPO, Total fluid goal 75 ml/h - Daily Chem 10; electrolytes replaced per NCCU protocol Recent Labs 07/13/22233807/14/22 045 SODIUM 136 138 POTASSIUM 3.9 3.9 CHLORIDE 104 105 CO2 23 23 BUN 14 14 CREATSERUM 0.72 0.78 MAGNESIUM -- 1.9 PHOSPHORUS -- 2.8 ICA -- 4.49* GI/Nutrition: No Current Issues Recent Labs 07/13/222338 ALBUMIN 4.2 BILIDIRECT 0.2 BILITOTAL 1.5* ALKPHOS 57 ALT 16 AST 18 TP 7.0 - DIET NPO with meds - thereNow Swallow Screening Result: passed=cleared for oral intake - Consult nutrition for malnutrition screening - There is no height or weight on file to calculate BMI. - 07/13 LFT: WNL - Bowel regimen: - Last Bowel Movement: (CREDIT NEGOTIATOR) - Senna, prn miralax Endo: Risk for Stress-Induced Hyperglycemia - Goal blood glucose 140-180 - monitor for need for SSI - 07/13 hgb a1c: 5.7 Recent Labs 07/13/22233807/14/22 0450 GLUCOSE 137* 135* HGBA1C 5.7* -- ID: Acute Leukocytosis 2/2 acute stress/IVH Recent Labs 07/13/22233807/14/22 0450 WBC 14.04* 13.06* - Temp (24hrs), Av.7 F (37.1 C), Min:98.2 F (36.8 C), Max:99.2 F (37.3 C) - PRN Tylenol for T>100.4F - Most recent and positive cultures: Date Collected Source Result Date Finalized 07/14 UA negative 07/14 MRSA swab P - Antiinfectives: Start Date Antiinfective Coverage Course Length Stop Date 07/14 Ancef Urethral false passage x1 dose 07/14 Heme/Onc: No Current Issues Recent Labs 07/13/22 2339 07/14/22 0450 WBC 14.04* 13.06* RBC 4.76 4.42 HGB 14.6 13.6 HCT 43.0 40.2 PLATELET 260 242 PT 13.8 14.0 PTT 34.3 33.6 INR 1.1 1.1 - Goal plt >100, INR <1.4, Hgb >7 Musc: No Current Issues - PT/OT consulted and following - Current Activity Order: AAT Social/Dispo: - Code status: No Order - Primary Emergency Contact: Rajiv Skinner - 07/14: - Discharge planning per PCROctavio/[place]. - ICU diary updated: 07/14 ICU Checklist: [ ] CAM-ICU [x ] DVT ppx; [x ] SCDs; [ ] Lovenox, [ ] heparin [ ] Stress ulcer prophylaxis: none - Lines/Tubes: [place]: CVC: [place]: inserted 07/14, (indication: BPH,urinary retention) Rectal tube: Enteral access: Patient seen and plan of care discussed with NCCU Attending, Dr. Marquez. RADHA Salinas Service pager: [phone] Service [place] #: [phone] (Beds [phone] and beds), [place] #: [phone] (Beds [phone] and [facility]) 07/14/22 8:19 AM * Charlene Syed PA-C - 07/14/2022 8:09 AM EST NEUROCRITICAL CARE HISTORY AND PHYSICAL HOSPITAL VISIT DEMOGRAPHICS Patient: Love SHERMANN: [id number] Code status: No Order Admission date: 07/14/2022 3:12 AM Hospital days: LOS: 0 days CHIEF COMPLAINT IVH w/ concern for obstructive hydrocephalus HISTORY OF PRESENT ILLNESS Love Skinner is a 67 y.o. male with a past history of tobacco-use (0.5 PPD) and marijuana-use. The patient presented to OSH with acute onset severe headache, N&V, LUE drift, and AMS. LKW 07/13 1200. CTH demonstrated hemorrhage in bilateral lateral ventricles L>R. Patient transferred [facility] management. Upon arrival to [facility], he was on a cardene gtt for SBP <140. CTH demonstrated stable-appearing IVHof the bilateral lateral ventricles and basal cistern w/o evidence of hydrocephalus. 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 INTERVAL HISTORY SINCE ADMISSION 07/14/2022: admitted to N[facility]U, DCA, CTH, [place] placed by urology, start diet PHYSICAL EXAM GENERAL: Alert, no acute distress. Aware only to self. HEENT: normocephalic, no scalp wounds nor lesions, dentures intact CARDIO: +S1S2, RRR, no m/r/g, no edema PULM: speaks in full sentences. Room air. ABDOMINAL: flat soft, nontender, nondistended, active bowel sounds EXTREMITIES: no wounds or lesions VASCULAR: 2+ distal pulses NEURO: Alert only to self. EOMI intact. Follows commands. Hearing intact. Object naming intact. 5/5strength in bilateral and lower extremities. No UE drift. ASSESSMENT AND PLAN Neuro: Bilateral Lateral Ventricular Hemorrhage Bilateral ICA Occlusion with Reconsitution Concern for Mcdermott Mcdermott Headache - IVH Management: - Monitor neurostatus with neurochecks Q1H and pupilometer Q1H - Prevent further expansion with goal SBP <140 (see cards) - 07/14 NSGY consult: possible EVD placement if hydrocephalus -07/14 DCA: ICA occlusion bilaterally with developmental of collateral flow from ECA's and posterior circulation. Daily NIHSS: NIH Stroke Scale: NIH Level of Conciousness (Provider): 0 NIH LOC Questions (Provider): 2 NIH LOC Commands (Provider): 0 NIH Best Gaze (Provider): 0 NIH Visual (Provider): 0 NIH Facial Palsy (Provider): 0 NIH Left Arm Motor (Provider): 0 NIH Right Arm Motor (Provider): 0 NIH Left Leg Motor (Provider): 0 NIH Right Leg Motor (Provider): 0 NIH Limb Ataxia (Provider): 0 NIH Sensory (Provider): 0 NIH Best Language (Provider): 0 NIH Dysarthria (Provider): 0 NIH Extinction and Inattention (Provider): 0 NIH Total Score (Provider): 2 - Imaging: - 07/13 CTA H/N: occlusion of bilateral internal carotid arteries; 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 No evidence of hydrocephalus. - 07/14: 6H-stability CT H: stable -07/14 CT H post DCA: Stable. Mild hydrocephalus. -07/15: CT H ordered - MRI B WWO: pending - Cytotoxic Cerebral Edema Management: - Goal Na 135 - 145; monitor Na QHS Recent Labs 07/13/22 2339 07/14/22 0450 SODIUM 136 138 OSMOLALITY 288 292 CHLORIDE 104 105 - Hemorrhage presumably 2/2 unknown (HTN? Atherosclerotic?) etiology; evaluation for cause and source: - Complete TTE ordered - Obtain LDL level and statin therapy if indicated (see cards) - Obtain HA1C level 5.7% - Defer antiplatelet therapy and therapeutic anticoagulation - Consider urine drug screen on admission if no stroke risk factors - Consider hypercoagulability panel 24H-post tPA if no stroke risk factors - Initiate VTE prophylaxis after bleed stability established (see heme) Mcdermott Mcdermott Workup: -07/14: Order - MARQUEZ: p - ESR 8 - CRP 3.96 - RF<10 -TSH: 0.723 - Pain/Sedation management - Tylenol 650mg Q4H PRN Psych: No Current Issues Pulm: Emphysema Tobacco-Use Marijuana-Use O2 Sat (%): 90 % (07/14 0700) O2 Device: room air (07/14 0500) - Goal SpO2 >92%; wean FiO2 as tolerated - [id number], encourage pulmonary toileting - PRN Duonebs Cards: [facility]LD Hypertension Temp: [98.2 F (36.8 C)-99.2 F (37.3 C)] 98.7 F (37.1 C) Pulse (Heart Rate): [76-108] 76 Resp Rate: [18-28] 20 BP: (116-156)/(58-79) 146/65 O2 Sat (%): [90 %-97 %] 90 % Weight: [77.7 kg (171 lb 4.8 oz)] 77.7 kg (171 lb 4.8 oz) - Goal SBP <140, MAP >65 - Home antihypertensives: none -Current Regimen: Nicardipine gtt-(POA from OSH) - PRN labetalol and hydralazine - TTE: pending - 07/13 troponin: 3 - 07/14 ECG: NSR -07/13: LDL: 131 - Statin Therapy: Indicated if LDL >70; began Atorvastatin 80 mg Recent Labs 07/13/22 2339 CHOLESTEROL 195 TRIG 63 HDL 51 LDL 131 Renal/: BPH Urinary Retention Traumatic [place] Placement w/ false lumen - Fluid Balance: - Goal: Fluid goal of 75 mL/hr Intake/Output Summary (Last 24 hours) at 07/14/2022 0809 Last data filed at 07/14/2022 0727 Gross per 24 hour Intake 179.39 ml Output 1600 ml Net -1420.61 ml BPH: - Start flomax Traumatic [place] Placement: -- [place] placed per urolog - Recommend keeping catheter in place for 72h (at least until 12/23 AM) prior to a trial of void, the catheter is NOT to be removed prior to the above date w/o first discussing w/ the Urology consults team. - Maintenance: 0.9NS w/ 20 KCl @ 75 mL/hr - Daily Chem 10; electrolytes replaced per NCCU protocol Recent Labs 07/13/22 2339 07/14/22 0450 SODIUM 136 138 POTASSIUM 3.9 3.9 CHLORIDE 104 105 CO2 23 23 BUN 14 14 CREATSERUM 0.72 0.78 MAGNESIUM -- 1.9 PHOSPHORUS -- 2.8 ICA -- 4.49* GI/Nutrition: No Current Issues Recent Labs 07/13/22 2339 ALBUMIN 4.2 BILIDIRECT 0.2 BILITOTAL 1.5* ALKPHOS 57 ALT 16 AST 18 TP 7.0 - DIET NPO with meds - [place] Swallow Screening Result: passed=cleared for oral intake - 07/14 Start diet - There is no height or weight on file to calculate BMI. - Bowel regimen: - Last Bowel Movement: (CREDIT NEGOTIATOR) - Senna daily, miralax PRN Endo: Risk for Stress-Induced Hyperglycemia - Goal blood glucose 140-180. Monitor need for insulin. Recent Labs 07/13/229 07/14/22 0450 GLUCOSE 137* 135* HGBA1C 5.7* -- Hemoglobin A1c: 5.7% ID: Acute Leukocytosis 2/2 acute stress/IVH Recent Labs 07/13/229 07/14/22 0450 WBC 14.04* 13.06* - Temp (24hrs), Av.7 F (37.1 C), Min:98.2 F (36.8 C), Max:99.2 F (37.3 C) - PRN Tylenol for T>100.4F - Most recent and positive cultures: Date Collected Source Result Date Finalized 07/14 MRSA/MSSA Pending - Antiinfectives: Start Date Antiinfective Coverage Course Length Stop Date 07/14 Ancef Urethral false passage x1 07/14 Heme/Onc: Reactive Leukocytosis Recent Labs 07/13/22233807/14/22 0450 WBC 14.04* 13.06* RBC 4.76 4.42 HGB 14.6 13.6 HCT 43.0 40.2 PLATELET 260 242 PT 13.8 14.0 PTT 34.3 33.6 INR 1.1 1.1 - Goal plt >100, INR <1.4, Hgb >7 07/14: Resume DVT prophylaxis on 07/15 Musc: No Current Issues - PT/OT consulted and following - Current Activity Order: AAT Social/Dispo: - Code status: No Order - Primary Emergency Contact: BrodyRajiv - 07/14: Last updated Family. - Discharge planning per PCRM/SW. ICU Checklist: [ ] CAM-ICU [x ] DVT ppx; [x ] SCDs; [ ] Lovenox, [ ] heparin [ ] Stress ulcer prophylaxis: - Lines/Tubes: [place]: CVC: [place]: inserted 07/14, (indication:BPH,urinary retention) Rectal tube: Enteral access: Discussed with NCCU Attending, Dr. Marquez. POOJA RutledgeC Service pager: [phone] Service [place] #: [phone] (Beds [phone] and beds), [place] #: [phone] (Beds [phone] and [facility] beds) 07/14/22 8:09 AM * Monica Walls APRN-CHUR[employer] MUSICIAN - 07/14/2022 6:45 AM EST Neurovascular Stroke Service Intracerebral Hemorrhage Note IDENTIFYING INFORMATION Love Skinner MR# [id number] 07/14/2022 HISTORY OF PRESENT ILLNESS Love Skinner is a 67 y.o. male with PMH significant for tobacco use disorder who presented to OSH EDwith nausea, vomiting, and headache found to have interventricular hemorrhage. Symptoms started around 1200 on 07/13/2022 while he was working. He was taken to OSH where CTH demonstrated bilateral IVH L>R. [facility]up. He does not take any anticoagulants or antiplatelets. He arrived on cardene drip and SBP less than 140. NIH 3 on arrival for LUE weakness and confusion. INTERVAL HISTORY 07/14: DCA pending today to evaluate for suspected Mcdermott Mcdermott and IVH etiology PHYSICAL EXAM Gen: awake, alert, NAD HEENT: normocephalic, no scalp lesions or tenderness, PERRLA, EOMI Neck: trachea midline, no JVD CV: +S1S2, RRR, no m/r/g Lungs: LCTA bilaterally with equal chest rise Abd: soft, nontender, nondistended, +BS x4 quadrants Extrem: Warm and well perfused, no cyanosis, clubbing, edema, 2+ pulses bilaterally Neuro: Oriented x4, [place] x4, sensation intact and equal bilaterally CN II - All visual ponce intact CN II/III - PERRLA CN III/IV/ - EOMI CN V - Light touch to face intact in all 3 divisions CN VII - Facial movement intact and symmetrical bilaterally CN VIII - Hearing intact CN X - Cough present CN XI - muscular movement of shoulders and sternocleidomastoid muscles intact and equal bilaterally CN XII - midline protrusion of tongue MOTOR EXAMINATION: no drift noted NIHSS Intracerebral Hemorrhage Volume Intracerebral Hemorrhage Score Score 30 Day Mortality following ICH 0 0% Mortality 1 13% Mortality 2 26% Mortality 3 72% Mortality 4 97% Mortality 5 100% Mortality ASSESSMENT AND PLAN Neuro: IVH, ICH score 1 CTH on arrival: IVH L > R, stable from outside hospital CTA: no spot sign. 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 -Antiplatelet therapy is not indicated. -Anticoagulation therapy not indicated in hemorrhagic stroke -Patients LDL 131 and HgbA1c were checked and the patient will be discharged on atorvastatin 80 mg -Dysphagia screening ordered, and will be completed prior to patient receiving oral intake. -Stroke education booklet has been provided both written and verbal education to the patient and family regarding hemorrhagic strokes. We have reviewed the patient's personal modifiable risk factors as well as education on reducing these risk factors. -Patient is being assessed for Rehab by PT/OT/Speech and PM&R if indicated. Monica Walls APRN-[facility] 07/14/2022 6:45 AM VITAL SIGNS Temp: [98.2 F (36.8 C)-99.2 F (37.3 C)] 99.2 F (37.3 C) Pulse (Heart Rate): [79-108] 79 Resp Rate: [18-28] 20 BP: (116-156)/(58-79) 130/62 O2 Sat (%): [90 %-97 %] 93 % Weight: [77.7 kg (171 lb 4.8 oz)] 77.7 kg (171 lb 4.8 oz) IMAGING/DIAGNOSTIC STUDIES ECHOCARDIOGRAM (Results Pending) MEDICATIONS Atorvastatin 80 mg Oral QHS nicotine 1 patch Transdermal Daily And VERIFY LINKED PATCH PLACEMENT Other Q12H senna 8.6 mg Oral Daily Or senna 8.6 mg Per NG tube Daily Tamsulosin HCl 0.4 mg Oral Daily * Teja Major MD - 07/14/2022 6:12 AM EST NSGY daily prog note S: No acute events, no complaints PE: Temp: [98.2 F (36.8 C)-99.2 F (37.3 C)] 99.2 F (37.3 C) Pulse (Heart Rate): [79-108] 84 Resp Rate: [18-28] 23 BP: (116-156)/(58-79) 136/65 O2 Sat (%): [92 %-97 %] 92 % Weight: [77.7 kg (171 lb 4.8 oz)] 77.7 kg (171 lb 4.8 oz) NAD A&Ox2, does not know location PERRL EOMI FS TM 5/5 RUE; 5/5 LUE 5/5 RLE; 5/5 LLE SILT WBC/Hgb/Hct/Plts: 13.06/13.6/40.2/242 (07/14 450) Na/K+/Phos/Mg/Ca: 138/3.9/2.8/1.9/-- (07/14 450) Bun/Creat/Cl/CO2/Glucose: 14/0.78/105/23/135 (07/14 450) Lab Results Component Value Date INR 1.1 07/14/2022 INR 1.1 07/13/2022 PT 14.0 07/14/2022 PT 13.8 07/13/2022 Intake/Output Summary (Last 24 hours) at 07/14/2022 0612 Last data filed at 07/14/2022 0558 Gross per 24 hour Intake 179.39 ml Output 1300 ml Net -1120.61 ml Imaging: IVH L>R lateral vents and 3rd and 4th niCARdipine (CARDENE) Infusion 5 mg/hr (07/14/22 0551) Sodium chloride 0.9% w/potassium cl 75 mL/hr at 07/14/22 0500 Atorvastatin 80 mg Oral QHS nicotine 1 patch Transdermal Daily And VERIFY LINKED PATCH PLACEMENT Other Q12H senna 8.6 mg Oral Daily Or senna 8.6 mg Per NG tube Daily Tamsulosin HCl 0.4 mg Oral Daily A/P 67 y.o. male hx smoking p/w N/V with diffuse IVH L>R - EVD watch - neurochecks q1 - INR < 1.5, Platelets > 100, SBP <140 - hold all antiplatelet agents and anticoagulation - MRI brain with and without contrast when able - DCA today - [facility] of Present illness Narrative* Lilli Quinones - 07/23/2022 3:36 PM EST Progression of Care Note Expected Discharge Date: tbd Medical Milestones Remaining: oriented to self, agitated and delirious syncopal episode today, HeadCT stable Assessment and Discharge Plan as of 07/23/2022 3:36 PM Pt with no insurance- messages sent to financial last week - they report pt is over income for medicaid and would start SBO/HCAP uday. Message sent again today re status update. Anticipated discharge disposition: Inpatient Rehab Facility Anticipated Services at Discharge: Senior Care, Occupational Therapy, Physical Therapy, Outpatient follow up, Speech Therapy Barriers to Discharge: Complex Disposition, Uninsured/Underinsured Explanation of Barriers: medical care, level of care tbd Readmission Risk Score Risk of Readmission: 5 Category Reference: High:16-100 Mod-High:10-16 Mod-Low: 5-10 Low: 0-5 * Cathleen Manuel OT - 07/23/2022 2:34 PM EST Acute Occupational Therapy Treatment Prior to Admission AM-PAC Score: PRIOR LEVEL AM-PAC Activity Raw Score: 24 PRIOR LEVEL AM-PAC Mobility Raw Score: 24 Current AM-PAC score(s): CURRENT AM-PAC Activity Raw Score: 6 Based on the above AM-PAC score(s), and OT clinical judgment, discharge destination recommendation is: Inpatient Rehab Facility Supporting Factors (would benefit from skilled therapy services): Patient status is anticipated to be appropriate to tolerate inpatient rehab therapy requirements at time of discharge from acute care, Recent decline in functional mobility, Fall risk, Recent decline in cognitive function, Recent decline in self-care abilities, Assistance needed with functional mobility, Impaired functional status,Impaired balance, Decreased endurance Mobility equipment available at home: none used ADL equipment available at home: none Equipment recommendations for discharge: to be determined Current therapy frequency recommendation(s) in acute: 5 times a week Precautions and Weightbearing Status: OT Existing Precautions/Restrictions: fall (AMS) Urinary catheter Patient Safety Communication Prior to Visit: Nursing Subjective: Pt alert. Attempting to roll himself out of bed with 2 RN present upon therapy arrival. RN reporting pt appears to be requiring increased assist with mobility and is intermittently restless. Pain: General Pain Documentation (Adult, OB, Peds) Presence of Pain: non-verbal indicator of pain/discomfort present Pain Location: back, head CPOT (Critical-Care Pain Observation Tool) Facial Expression: grimacing Body Movements: restlessness Muscle Tension: very tense or rigid Vocalization (Extubated Patients): sighing, moaning CPOT Score (0-8): 7 Objective/Observation: Vitals/Vitals Responses to Treatment: VSS (numbers stable). However, pt with episode of unresponsiveness when seated EOB after severe buckling/twitching in standing position. Pt with eyes open but no verbalizations/responses to stimuli. RN present and ERT called. Pt dependently returned to supine, regaining responsiveness in supine as team assessed him. Respiratory Status O2 Device: room air Cognition Overall Cognitive Status: Impaired Arousal/Alertness: Inconsistent responses to stimuli Orientation Level: Oriented to person Following Commands: Follows commands 25-50% of the time Safety Judgment: Decreased awareness of need for safety, Decreased awareness of need for assistance Awareness of Errors: Decreased awareness of errors Deficits: Not aware of deficits Attention Span: Difficulty attending to directions Extremity Assessments: See OT Evaluation flowsheet for Extremity Measurement updates. Balance: Sitting Balance Static Sitting-Level of Assistance: Maximum assistance (2 person) Dynamic Sitting-Level of Assistance: Dependent (2 person) Sitting Balance Skilled Intervention/Details: Pt with very poor sitting balance (fluctuates). Pt with sway in all directions, poor awareness of position in space. Standing Balance Static Standing-Level of Assistance: Maximum assistance, 2-person assist Dynamic Standing-Level of Assistance: Dependent, 2-person assist Standing Balance Skilled Intervention/Details: Pt tolerates less than ~30-60 seconds in standing. Severe buckling. Episodes of twitching, shouting/grimacing (coupled with throwing self posteriorly/retropulsion). Impulsively tries to stand when alert. Mobility Assessment/Intervention: Supine to Sit Mobility [place] Level: Supine->Sit: maximum assist (25% patient effort) Physical Assist: Supine->Sit: 2 person assist Bed Features/Set-up: Supine->Sit: Flat Skilled Rationale: Positioning, Sequencing, Verbal cues, Technique of activity, Cues for increased safety, Initiation and execution of task Skilled Intervention/Details: Supine->Sit: Pt with difficulty initiating/following commands. Requires increased assist for safety as well d/t intermittent restlessness. Pt assisted with bringing LE over EOB and propelling trunk to upright. Retropulsion noted upon reaching seated position. Sit to Supine Mobility [place] Level: Sit->Supine: dependent (less than 25% patient effort) Physical Assist: Sit->Supine: 2 person assist Bed Features/Set-up: Sit->Supine: Flat Skilled Intervention/Details: Sit->Supine: Pt with episode of non- responsiveness. Returned to supine for safety. Transfer Assessment/Intervention: Sit to Stand Transfer [place] Level: Sit->Stand: maximum assist (25% patient effort) Physical Assist: Sit->Stand: 2 person assist Assistive Device: Sit->Stand: gait belt, hand held assist Skilled Rationale: Verbal cues, Arm in arm, Patellar block, Positioning, Sequencing, Full extensionto upright positioning/posture, Technique of activity, Upright gaze/neck extension, Cues for increased safety, Initiation and execution of task Skilled Intervention/Details: Sit->Stand: Pt completes x2 stands from EOB. Pt with poor ability to correct posture. Intermittent severe knee buckling, requiring totalA to block. Unable to tolerateprolonged standing. Fluctuating (mild to severe) sway in all directions. Stand to Sit Transfer [place] Level: Stand->Sit: dependent (less than 25% patient effort) Physical Assist: Stand->Sit: 2 person assist Assistive Device: Stand->Sit: gait belt, hand held assist Skilled Intervention/Details: Stand->Sit: Pt requires totalA to return safely to seated positiond/t severity of buckling. Unable to control descent. Outcome Score(s): CURRENT AM-[facility] Daily Activity Inpatient Short Form Putting on/Taking Off Lower Body Clothin - Total Assistance Bathin - Total Assistance Toiletin - Total Assistance Putting on/Taking Off Upper Body Clothin - Total Assistance Groomin - Total Assistance Eatin - Total Assistance CURRENT AM-PAC Activity Raw Score: 6 CURRENT AM-PAC Activity Functional Limitation/Modifier: 100.00% Currently Impaired in Daily Activity Currently Impaired in Daily Activity - CN Interventions: Pt's functional status declining during status. Pt demonstrating progressively worse postural control and severe knee buckling. Extreme twitching and poor balance. Shouting/grimacing (appears to be in pain). Impulsive/restless at times. Attempted to block knees as much as possible to keep pt safety. Seated EOB, pt then hanging head anteriorly, becoming unresponsive/no verbalizations. Pt immediately returned dependently to supine for safety. RN present, called ERT. Pt regaining responsiveness once in supine position, team present to assess. Assessment & Plan: Pt with decreased ability to participate in therapy session this date as described above. Pt continues to be limited cognition, arousal, balance, weakness, and activity tolerance/endurance. Pt would benefit from continued skilled therapy services to promote independence and safety with functional mo bility and basic ADL tasks. Will continue to work with pt as safely able. Patient Instruction/Education this session: Patient Instruction: today's treatment plan Plan for next session: continue OT plan of care; progression of all functional participation in ADLs/mobility Acute OT Goals Plan of Care by Cathleen Manuel OT at 07/23/2022 2:18 PM Version 1 of 1 Problem: OT - Cognition Goal: Cognition simple ADL Description: Pt will demonstrate improved cognition, completing simple ADL task for 10 minutes withno more than 2 cues required to maintain attention, for improved safety and success at discharge destination. Outcome: Ongoing Problem: OT - Balance Goal: Balance - Standing Description: Pt will perform 10 minutes of functional ADL task in standing with supervision and no major LOB to promote safety and improved balance required for self-care activities. Outcome: Ongoing OT treatment consisted of balance training and transfer training to work and progress towards abovegoal(s). Treating Therapist: Cathleen Manuel OT Additional Details: Co-evaluation/co-treatment performed?: Yes, simultaneous billable skilled care This co-treatment session performed between OT and PT was beneficial, necessary and provided distinct services in progressing this person's individual plan of care. Medical complexity with functionaldeficits that necessitate two skilled therapy disciplines working concurrently to optimize patient's progress towards each discipline's goals. This co-treatment was medically necessary due to patient's: Postural control. Patient benefits from simultaneous treatment from another therapy discipline to maximize progress towards functional mobility and basic ADL task Occupational Therapy goals. I was assisted by Lisa and MERY for today's session. I used facemask, protective eye shield, and gloves in today's patient interaction. Patient location at end of session: bed with head of bed elevated Alarms on at end of session: RN aware and team present d/t ERT being called Needs in reach. Time In: 1134 Time Out: 1149 Total Visit Time: 15 minutes Total Treatment Time (skilled, billable minutes): 15 minutes Upon discontinuation of Acute Care Occupational Therapy Services or patient discharge from the hospital this note represents the current Occupational Therapy Discharge Summary. * MIGUEL A Gutiérrez - 07/23/2022 12:21 PM EST Speech Language Pathology Attempt Note 07/23/2022 MICROBIOLOGICAL [employer] TECHNICIAN Therapy Completed: Attempted Attempted Reason: Patient is unavailable due to test/procedure. Pt off the floor for CT. Will re-attempt as able/appropriate. MIGUEL A Gutiérrez Time In: 1220 Time Out: 1220 Total Visit Time: 0 minutes Total Treatment Time (skilled, billable minutes): 0 minutes * Lisa Balbuena PT - 07/23/2022 11:49 AM EST Acute Physical Therapy Treatment Prior to Admission [facility] score(s): PRIOR LEVEL AM-PAC Mobility Raw Score: 24 PRIOR LEVEL AM-PAC Activity Raw Score: 24 Current AM-PAC score(s): CURRENT AM-PAC Mobility Raw Score: 6 Based on the above AM-PAC score(s) and PT clinical judgment, patient is a good candidate for discharge to Inpatient Rehab Facility (Potential to progress to home with initial 24 hour supervision and assist, and OP PT.) Supporting Factors (would benefit from skilled therapy services): Impaired functional status, Impaired balance, Decreased endurance necessitating skilled therapy services, but able to tolerate therapy requirements for inpatient rehab, Impaired cognitive status, Assistance needed with functional mobility, Fall risk Mobility equipment available at home: none used ADL equipment available at home: none Equipment needed for discharge: to be determined Current therapy frequency recommendation in acute: Therapy Frequency: 5 times a week Precautions and Weightbearing Status: Existing Precautions/Restrictions: fall Urinary catheter Patient Safety Communication Prior to Visit: Nursing Subjective: Pt impulsively attempting to exit his bed with RN x2 present on arrival. Agreeable to Physical Therapy. RN reports increased restlessness today. Pain: General Pain Documentation (Adult, OB, Peds) Presence of Pain: non-verbal indicator of pain/discomfort present Pain Location: back, head CPOT (Critical-Care Pain Observation Tool) Facial Expression: grimacing Body Movements: restlessness Muscle Tension: very tense or rigid Vocalization (Extubated Patients): sighing, moaning CPOT Score (0-8): 7 Objective/Observation: Vitals/Vitals Responses to Treatment: VSS Pt with episode of unresponsiveness when seated EOB, eyes open, no verbalizations. RN present. ERT called by RN. Respiratory Status O2 Device: room air Cognition Overall Cognitive Status: Impaired Arousal/Alertness: Inconsistent responses to stimuli Orientation Level: Oriented to person Following Commands: Follows commands 25-50% of the time Safety Judgment: Decreased awareness of need for assistance, Decreased awareness of need for safety Awareness of Errors: Decreased awareness of errors Deficits: Not aware of deficits Attention Span: Difficulty attending to directions, Difficulty dividing attention Extremity Assessments: See PT Evaluation flowsheet for Extremity Measurement updates. Skin and Edema: Balance: Sitting Balance Static Sitting-Level of Assistance: Maximum assistance (x2) Dynamic Sitting-Level of Assistance: Dependent (x2) Skilled Rationale: Hand placement, Verbal cues, Tactile cues, Facilitate anterior shift, Full extension to upright positioning/posture, Cues for increased safety Sitting Balance Skilled Intervention/Details: Impulsively attempting to stand, restless when seatedEOB. Jerking movements with shouting as if in pain, but unable to verbalize what is happening. Standing Balance Static Standing-Level of Assistance: Maximum assistance, 2-person assist Dynamic Standing-Level of Assistance: Dependent, 2-person assist Standing-Balance Support: Gait belt, Bilateral hand held assist Skilled Rationale: Hand placement, Verbal cues, Tactile cues, Facilitate anterior shift, Full extension to upright positioning/posture, Technique of activity, Initiation and execution of task, Cues for increased safety Standing Balance Skilled Intervention/Details: Static standing 2xless than 60 seconds with bilat hand-held assist, blocking of bilat knees to prevent buckling. Pt continues to exhibit jerking movements with shouting as if in pain followed by buckling of bilat LEs. Returned to sitting. Mobility Assessment/Intervention: Supine to Sit Mobility [place] Level: Supine->Sit: maximum assist (25% patient effort) Physical Assist: Supine->Sit: 2 person assist Bed Features/Set-up: Supine->Sit: Flat Skilled Rationale: Positioning, Sequencing, Hand placement, Verbal cues, Tactile cues, Technique ofactivity, Initiation and execution of task, Cues for increased safety Skilled Intervention/Details: Supine->Sit: Unable to follow commands consistently requiring Max Ax2 to advance LEs off EOB and bring trunk to upright. Intermittently retropulsive in sitting. Sit to Supine Mobility [place] Level: Sit->Supine: dependent (less than 25% patient effort) Physical Assist: Sit->Supine: 2 person assist Bed Features/Set-up: Sit->Supine: Flat Skilled Intervention/Details: Sit->Supine: Pt with non-responsive episode while seated EOB and Dependently returned to supine. Transfer Assessment/Intervention: Sit to Stand Transfer [place] Level: Sit->Stand: maximum assist (25% patient effort) Physical Assist: Sit->Stand: 2 person assist Assistive Device: Sit->Stand: gait belt, hand held assist Skilled Rationale: Positioning, Sequencing, Hand placement, Verbal cues, Tactile cues, Arm in arm, Patellar block, Facilitate anterior shift, Full extension to upright positioning/posture, Technique of activity, Initiation and execution of task, Cues for increased safety Skilled Intervention/Details: Sit->Stand: x2 from EOB with bilat arm-in-arm assist and bilat knees blocked to prevent buckling. Posterior lean requiring verbal and tactile cues and increased physical assist to correct. Stand to Sit Transfer [place] Level: Stand->Sit: dependent (less than 25% patient effort) Physical Assist: Stand->Sit: 2 person assist Assistive Device: Stand->Sit: gait belt, hand held assist Skilled Intervention/Details: Stand->Sit: Pt dependently assisted into sitting when not responding to verbal commands to return to sitting. Gait/Functional Mobility Assessment/Intervention: Stairs Assessment/Intervention: Outcome Score(s): CURRENT [facility] Basic Mobility Inpatient Short Form Turning over in bed: 1 - Total Assistance Sitting/standing from chair: 1 - Total Assistance Moving from lying on back to sittin - Total Assistance Moving to and from bed to chair: 1 - Total Assistance Walk in hospital room: 1 - Total Assistance Climbing 3-5 steps with a railin - Total Assistance CURRENT [facility] Mobility Raw Score: 6 CURRENT [facility] Mobility Functional Limitation/Modifier: 100.00% Currently Impaired in Basic Mobility Currently Impaired in Basic Mobility - CN Interventions: Assessment & Plan: Pt demos declined in performance of functional mobility. Increased restlessness and increased need for physical assist with functional mobility. Jerking movement episodes with associated yelling out as if in pain. Unable to verbalize if pt experiencing pain. Episode of unresponsiveness while seatedEOB and dependently returned to supine. RN present and called an ERT. Pt responsiveness once returned to supine. Pt continues to benefit from skilled PT services to address strength, balance, activity tolerance, postural control, and cognition as they relate to overall performance of functional mobility. Patient Instruction/Education this session: Repositioning, OOBTC as appropriate Plan for next session: Progress all functional mobility and balance activities. Acute PT Goals Plan of Care by Lisa Balbuena PT at 07/23/2022 11:49 AM Version 1 of 1 Problem: PT - Balance/Coordination/Neuro Re-Education Goal: Standing Dynamic/Static Balance Description: Pt will perform standing balance tasks for 15 minutes with supervision with out an assistive device in order to improve functional mobility and safety with standing tasks. Outcome: Ongoing Problem: PT - Transfers Goal: Supine <-> Sit Description: Pt will perform bed mobility with flat bed & no rail with independence in order toimprove functional mobility and safety. Outcome: Ongoing Goal: Sit <-> Stand Description: Pt will perform sit to/from stand transfers with supervision with out an assistive device in order to improve functional mobility and safety. Outcome: Ongoing Lisa Balbuena PT, DPT License #: [id number] Pager #: [phone] PT treatment consisted of Therapeutic Activity to work and progress towards above goal(s). Treating Therapist: Lisa Balbuena PT Additional Details: Co-evaluation/co-treatment performed?: Yes, simultaneous billable skilled care This co-treatment session performed between PT and OT was beneficial, necessary and provided distinct services in progressing this person's individual plan of care. Medical complexity with functionaldeficits that necessitate two skilled therapy disciplines working concurrently to optimize patient's progress towards each discipline's goals. This co-treatment was medically necessary due to patient's: Cognitive issues, Coordination issues, Postural control, Alertness/arousal and Functional communication (writing/device/speaking valve). Patient benefits from simultaneous treatment from another therapy discipline to maximize progress towards all Physical Therapy goals. I used facemask, protective eye shield, and gloves in today's patient interaction. Patient location at end of session: bed with head of bed elevated Alarms on at end of session: RN present Needs in reach. Time In: 1134 Time Out: 1149 Total Visit Time: 15 minutes Total Treatment Time (skilled, billable minutes): 15 minutes Upon discontinuation of Acute Care Physical Therapy Services or patient discharge from the hospitalthis note represents the current Physical Therapy Discharge Summary. * Dean Linton PT - 07/22/2022 10:38 AM EST Physical Therapy Attempt Note 07/22/2022 PT Therapy Completed: Attempted Attempted Reason: Patient is not medically optimized to tolerate therapy program (per RN, not appropriate) Dean Linton PT Time In: 1038 Time Out: 1038 Total Visit Time: 0 minutes Total Treatment Time (skilled, billable minutes): 0 minutes * Cathleen Manuel OT - 07/22/2022 9:35 AM EST Occupational Therapy Attempt Note 07/22/2022 OT Therapy Completed: Attempted Attempted Reason: Patient with increased agitation overnight/this morning. RN reporting that pt is sleeping soundly at this time, requests to hold for the morning. Will re-attempt as able/appropriate. Cathleen Manuel OT Time In: 0935 Time Out: 0935 Total Visit Time: 0 minutes Total Treatment Time (skilled, billable minutes): 0 minutes * MIGUEL A Martínez - 07/22/2022 8:33 AM EST Acute Care Speech-Language Pathology Attempt Note 07/22/2022 MICROBIOLOGICAL LAB TECHNICIAN Therapy Completed: Attempted Attempted Reason: Patient is not medically optimized to tolerate therapy program. Will re-attempt as able/appropriate. MIGUEL A Martínez Time In: 832 Time Out: 832 Total Visit Time: 0 minutes Total Treatment Time (skilled, billable minutes): 0 minutes * Cathleen Manuel OT - 07/21/2022 9:49 AM EST Acute Occupational Therapy Treatment Prior to Admission AM-PAC Score: PRIOR LEVEL AM-PAC Activity Raw Score: 24 PRIOR LEVEL AM-PAC Mobility Raw Score: 24 Current AM-PAC score(s): CURRENT AM-PAC Activity Raw Score: 17 Based on the above AM-PAC score(s), and OT clinical judgment, discharge destination recommendation is: Inpatient Rehab Facility Supporting Factors (would benefit from skilled therapy services): Patient status is anticipated to be appropriate to tolerate inpatient rehab therapy requirements at time of discharge from acute care, Recent decline in functional mobility, Fall risk, Recent decline in cognitive function, Recent decline in self-care abilities, Assistance needed with functional mobility, Impaired functional status,Impaired balance, Decreased endurance Mobility equipment available at home: none used ADL equipment available at home: none Equipment recommendations for discharge: to be determined Current therapy frequency recommendation(s) in acute: 5 times a week Precautions and Weightbearing Status: OT Existing Precautions/Restrictions: fall ([place]) Patient Safety Communication Prior to Visit: Nursing Subjective: Pt alert and agreeable to participate. Supine upon arrival. Notes he is looking forward to getting up to walk/exercise. Pain: General Pain Documentation (Adult, OB, Peds) Presence of Pain: complains of pain/discomfort Pain Location: head (no numerical rating) Objective/Observation: Vitals/Vitals Responses to Treatment: stable Respiratory Status O2 Device: room air Cognition Overall Cognitive Status: (at-risk) Arousal/Alertness: Appropriate responses to stimuli Orientation Level: Oriented to person (correctly states month/year but reads room whiteboard; unable to name place but correctly states building type as hospital) Following Commands: Follows one step commands without difficulty, Follows one step commands with repetition, Follows one step commands with increased time Safety Judgment: Decreased awareness of need for assistance, Decreased awareness of need for safety Awareness of Errors: Assistance required to correct errors made, Decreased awareness of errors Deficits: Decreased awareness of deficits Attention Span: Attends with cues to redirect Memory: Decreased recall of recent events, Decreased recall of biographical information Problem Solving: Assistance required to implement solutions Details: pt distractible at times, increased difficulty with dual tasking during functional mobility; some repetition/perseveration of already completed grooming tasks ADL Assessment/Intervention: Grooming Assistance: Minimal Grooming Location: standing at sink Grooming Deficit: Increased time to complete, Generalized weakness, Activity tolerance, Balance, Retrieval of items, Oral care, Sequencing, Initiation Grooming Skilled Rationale (Verbal/Tactile/Visual/Demonstration): Cues for increased safety, Technique of activity, Setup, Supervision, Cues for cognitive deficit, Facilitate postural control, Facilitate positioning Grooming Intervention/Details: Pt standing at sink for ~5-8 minutes this date to complete oral care/denture care task. Pt using UE support on counter frequently, increased instability when removing all UE support. Pt with noted anterior/posterior sway with decreased awareness of body position in space. As pt fatiguing, increased difficulties with maintaining balance (frequent periods of Evin to maintain) and increased cues required for sequencing/processing. Pt able to sequence steps with increased time but demos some repetition/perseveration of already completed elements of task. Extremity Assessments: See OT Evaluation flowsheet for Extremity Measurement updates. Balance: Sitting Balance Static Sitting-Level of Assistance: Standby Dynamic Sitting-Level of Assistance: Contact guard Standing Balance Static Standing-Level of Assistance: Contact guard Dynamic Standing-Level of Assistance: Minimum assistance, Contact guard Mobility Assessment/Intervention: Supine to Sit Mobility [place] Level: Supine->Sit: minimum assist (75% patient effort) Bed Features/Set-up: Supine->Sit: Head of bed elevated, Use of bed rail Skilled Rationale: Verbal cues, Facilitate anterior shift, Technique of activity, Cues for increased safety, Positioning, Initiation and execution of task Skilled Intervention/Details: Supine->Sit: Pt able to advance LE over EOB (increased cues to initiate). Uses therapist's hand as anchor to fully propel trunk to upright. Additional time to shift hips anteriorly. Transfer Assessment/Intervention: Sit to Stand Transfer [place] Level: Sit->Stand: minimum assist (75% patient effort) Assistive Device: Sit->Stand: gait belt Skilled Rationale: Verbal cues, Full extension to upright positioning/posture, Technique of activity, Cues for increased safety, Positioning Skilled Intervention/Details: Sit->Stand: Mild impulsivity, cues to remain seated until therapist prepared with 2WW. Pt uses UE for leverage, slightly increased time to reach full upright positionand mild postural sway upon reachng standing. Stand to Sit Transfer [place] Level: Stand->Sit: minimum assist (75% patient effort) Assistive Device: Stand->Sit: gait belt, 2 wheeled walker Skilled Rationale: Verbal cues, Controlled descent for sitting, Technique of activity, Cues for increased safety, Positioning Skilled Intervention/Details: Stand->Sit: Cues to reach back for armed chair to preapre for safetransfer. Fair eccentric control. Functional Mobility: Functional Mobility [place] Level: Functional Mobility/Gait: (CGA to Evin) Physical Assist: Functional Mobility/Gait: chair follow Assistive Device: Functional Mobility/Gait: 2 wheeled walker, gait belt Functional Mobility Distance: Distance needed for limited community mobility (~400 ft) Functional Mobility Deficits: Activity tolerance, Balance, Attention, Generalized weakness, Slowed gait speed Functional Mobility Skilled Rationale: Cues for increased safety, Facilitate postural control, Facilitate positioning, Technique of activity, Verbal cues, Upright gaze/neck extension, Visual scanningand environmental awareness Skilled Intervention/Details - Functional Mobility/Gait: Pt ambulating in hallway with 2WW, mild unsteadiness with x1 instance of near LOB (continued Evin to correct). Pt frequently turning head to look at distractions throughout path in hallway. Challenged to dual task/way find during this task for functional cognition. Slowed pace and increased instability noted with increased cognitive load and fatigue. Able to recall place/room number but requires significantly additional time/cues. Outcome Score(s): CURRENT AM-PAC Daily Activity Inpatient Short Form Putting on/Taking Off Lower Body Clothin - A Little Assistance Bathin - A Little Assistance Toiletin - Total Assistance Putting on/Taking Off Upper Body Clothin - A Little Assistance Groomin - A Little Assistance Eatin - No Assistance CURRENT AM-PAC Activity Raw Score: 17 CURRENT AM-PAC Activity Functional Limitation/Modifier: 50.11% Currently Impaired in Daily Activity- CK Assessment & Plan: Pt is making steady progress toward stated OT goals. Pt continues to be limited by balance, weakness, at-risk cognition, and activity tolerance/endurnace. Pt would benefit from continued skilled therapy services to promote independence and safety with functional mobility and basic ADL tasks. Patient Instruction/Education this session: Patient Instruction: today's treatment plan Plan for next session: continue OT plan of care; progression of dynamic balance/functional sequencing for ADLs Acute OT Goals Plan of Care by Cathleen Manuel OT at 07/21/2022 9:35 AM Version 1 of 1 Problem: OT - Balance Goal: Balance - Standing Description: Pt will perform 10 minutes of functional ADL task in standing with supervision and no major LOB to promote safety and improved balance required for self-care activities. Outcome: Ongoing Problem: OT - Endurance Goal: Endurance Functional Mobilty Around Home Description: Pt will complete distance needed for limited community mobility with supervision and good balance. Outcome: Ongoing Problem: OT - Cognition Goal: Cognition simple ADL Description: Pt will demonstrate improved cognition, completing simple ADL task for 10 minutes withno more than 2 cues required to maintain attention, for improved safety and success at discharge destination. Outcome: Progressing Toward Goal OT treatment consisted of ADL retraining, balance training, cognitive training, energy conservation/endurance training and transfer training to work and progress towards above goal(s). Treating Therapist: Cathleen Manuel OT Additional Details: Co-evaluation/co-treatment performed?: Yes, simultaneous billable skilled care This co-treatment session performed between OT and PT was beneficial, necessary and provided distinct services in progressing this person's individual plan of care. Medical complexity with functionaldeficits that necessitate two skilled therapy disciplines working concurrently to optimize patient's progress towards each discipline's goals. This co-treatment was medically necessary due to patient's: recently increased agitation (several days without therapy); postural control/cognition. Patientbenefits from simultaneous treatment from another therapy discipline to maximize progress towards functional mobility and basic ADL task Occupational Therapy goals. I was assisted by GARY Gonzalez for today's session. I used facemask, protective eye shield, and gloves in today's patient interaction. Patient location at end of session: chair Alarms on at end of session: chair alarm and RN aware Needs in reach. Time In: 805 Time Out: 834 Total Visit Time: 29 minutes Total Treatment Time (skilled, billable minutes): 29 minutes Upon discontinuation of Acute Care Occupational Therapy Services or patient discharge from the hospital this note represents the current Occupational Therapy Discharge Summary. * Lisa Balbuena, PT - 07/21/2022 8:35 AM EST Acute Physical Therapy Treatment Prior to Admission AMPA score(s): PRIOR LEVEL AM-PAC Mobility Raw Score: 24 PRIOR LEVEL AM-PAC Activity Raw Score: 24 Current AM-PAC score(s): CURRENT AM-PAC Mobility Raw Score: 19 Based on the above AM-PAC score(s) and PT clinical judgment, patient is a good candidate for discharge to Inpatient Rehab Facility (Potential to progress to home with initial 24 hour supervision and assist, and OP PT.) Supporting Factors (would benefit from skilled therapy services): Impaired functional status, Impaired balance, Decreased endurance necessitating skilled therapy services, but able to tolerate therapy requirements for inpatient rehab, Impaired cognitive status, Assistance needed with functional mobility, Fall risk Mobility equipment available at home: none used ADL equipment available at home: none Equipment needed for discharge: to be determined Current therapy frequency recommendation in acute: Therapy Frequency: 5 times a week Precautions and Weightbearing Status: Existing Precautions/Restrictions: fall Urinary catheter Patient Safety Communication Prior to Visit: Nursing Subjective: Pt supine with HOB elevated on arrival. Agreeable to Physical Therapy. Pain: General Pain Documentation (Adult, OB, Peds) Presence of Pain: complains of pain/discomfort Pain Location: head Objective/Observation: Vitals/Vitals Responses to Treatment: Stable Respiratory Status O2 Device: room air Cognition Overall Cognitive Status: Impaired Arousal/Alertness: Appropriate responses to stimuli Orientation Level: Oriented to person, Oriented to time, Oriented to place (Hospital with choices. States [place], then [place], before therapy corrected to [place]. Reads the date off of his in-room whiteboard.) Following Commands: Follows one step commands with increased time, Follows one step commands with repetition Safety Judgment: Decreased awareness of need for assistance, Decreased awareness of need for safety Awareness of Errors: Assistance required to correct errors made Deficits: Decreased awareness of deficits Attention Span: Attends with cues to redirect Memory: Decreased recall of recent events Problem Solving: Assistance required to generate solutions, Assistance required to implement solutions Cognition Comments: Lethargic Extremity Assessments: See PT Evaluation flowsheet for Extremity Measurement updates. Skin and Edema: Balance: Sitting Balance Static Sitting-Level of Assistance: Standby Dynamic Sitting-Level of Assistance: Standby Skilled Rationale: Cues for increased safety Sitting Balance Skilled Intervention/Details: Impulsively attempts to stand requiring cues to remain seated. Standing Balance Static Standing-Level of Assistance: Contact guard Dynamic Standing-Level of Assistance: Minimum assistance Standing-Balance Support: Gait belt, 2 wheeled walker Skilled Rationale: Positioning, Verbal cues, Tactile cues, Full extension to upright positioning/posture, Cues for increased safety Standing Balance Skilled Intervention/Details: Increased postural sway with static standing at the sink to complete self-care activities. Pt also with fatigue following activity, contributing to an increase in balance impairment. Episode of scissoring when turning away from the sink requiring Min Aureliano correct. Min A with ambulation when pt completing head turns. Verbal cues for forward gaze. Mobility Assessment/Intervention: Supine to Sit Mobility [place] Level: Supine->Sit: minimum assist (75% patient effort) Bed Features/Set-up: Supine->Sit: Head of bed elevated, Use of bed rail Skilled Rationale: Hand placement, Verbal cues, Tactile cues, Cues for increased safety Skilled Intervention/Details: Supine->Sit: Hand-held assist to pull trunk to upright. Verbal cues to scoot hips to EOB. Transfer Assessment/Intervention: Sit to Stand Transfer [place] Level: Sit->Stand: minimum assist (75% patient effort) Assistive Device: Sit->Stand: gait belt, 2 wheeled walker Skilled Rationale: Hand placement, Verbal cues, Tactile cues, Full extension to upright positioning/posture, Cues for increased safety Skilled Intervention/Details: Sit->Stand: x1 from EOB with mild impulsivity. Forward flexed posture in standing. Stand to Sit Transfer [place] Level: Stand->Sit: minimum assist (75% patient effort) Assistive Device: Stand->Sit: gait belt, 2 wheeled walker, armed chair Skilled Rationale: Hand placement, Verbal cues, Tactile cues, Controlled descent for sitting, Cues for increased safety Skilled Intervention/Details: Stand->Sit: x1 to the armed chair. Verbal cues for turning to approach the armed chair and to reach back prior to sitting for safety. Gait/Functional Mobility Assessment/Intervention: Gait Assessment [place] Level: Gait: minimum assist (75% patient effort) Assistive Device: Gait: gait belt, 2 wheeled walker Ambulation Distance (Feet): 400 Gait Deviations Identified: decreased gait speed, flexed posture, increased postural sway Gait Skilled Rationale: verbal, upright posture Skilled Intervention/Details - Gait: Easily distracted when ambulating in the hallway, frequently completing head turns resulting in increased postural sway or LOB requiring Min A to correct. Wheelchair Assessment Patient currently uses wheelchair?: No Stairs Assessment/Intervention: Stairs Assessment [place] Level: Stair Negotiation: not tested Outcome Score(s): CURRENT [facility] Basic Mobility Inpatient Short Form Turning over in bed: 4 - No Assistance Sitting/standing from chair: 3 - A Little Assistance Moving from lying on back to sittin - A Little Assistance Moving to and from bed to chair: 3 - A Little Assistance Walk in hospital room: 3 - A Little Assistance Climbing 3-5 steps with a railin - A Little Assistance CURRENT [facility] Mobility Raw Score: 19 CURRENT [facility] Mobility Functional Limitation/Modifier: 41.77% Currently Impaired in Basic Mobility- CK Interventions: Assessment & Plan: Pt demos progress toward PT goals. Limited by cognitive impairment resulting in impaired safety awareness, increased risk for falls. Increased single-bout and total ambulation distance, total standing balance activity time, and total activity tolerance time. Demos impaired motor sequencing with self-care activities requiring cues to attend to and advance in performance of a task. Difficulty with cognitive-motor dual tasks without balance impairment. Pt continues to benefit from skilled PT services to address cognition, balance, postural control, and activity tolerance as they relate to overall performance of functional mobility. Patient Instruction/Education this session: OOBTC and ambulate with 2WW with RN assist. Plan for next session: Progress gait training, standing balance, cognitive-motor dual tasks Acute PT Goals Plan of Care by Lisa Balbuena PT at 07/21/2022 8:35 AM Version 1 of 1 Problem: PT - Balance/Coordination/Neuro Re-Education Goal: Standing Dynamic/Static Balance Description: Pt will perform standing balance tasks for 15 minutes with supervision with out an assistive device in order to improve functional mobility and safety with standing tasks. Outcome: Ongoing Problem: PT - Mobility Goal: Ambulation Description: Pt will ambulate 500 feet with out an assistive device with supervision to improve ability to navigate home environment. Outcome: Ongoing Problem: PT - Transfers Goal: Supine <-> Sit Description: Pt will perform bed mobility with flat bed & no rail with independence in order toimprove functional mobility and safety. Outcome: Ongoing Goal: Sit <-> Stand Description: Pt will perform sit to/from stand transfers with supervision with out an assistive device in order to improve functional mobility and safety. Outcome: Ongoing Lisa Balbuena PT, DPT License #: [id number] Pager #: [phone] PT treatment consisted of Therapeutic Activity and Gait/Stair Training to work and progress towardsabove goal(s). Treating Therapist: Lisa Balbuena PT Additional Details: Co-evaluation/co-treatment performed?: Yes, simultaneous billable skilled care This co-treatment session performed between PT and OT was beneficial, necessary and provided distinct services in progressing this person's individual plan of care. Medical complexity with functionaldeficits that necessitate two skilled therapy disciplines working concurrently to optimize patient's progress towards each discipline's goals. This co-treatment was medically necessary due to patient's: Cognitive issues. Patient benefits from simultaneous treatment from another therapy discipline to maximize progress towards all Physical Therapy goals. I used facemask, protective eye shield, and gloves in today's patient interaction. Patient location at end of session: chair Alarms on at end of session: chair alarm Needs in reach. Time In: 08 Time Out: 834 Total Visit Time: 29 minutes Total Treatment Time (skilled, billable minutes): 29 minutes Upon discontinuation of Acute Care Physical Therapy Services or patient discharge from the hospitalthis note represents the current Physical Therapy Discharge Summary. * Monica Walls APRN-ZACK - 07/20/2022 7:22 AM EST Neurovascular Stroke Service Intracerebral Hemorrhage Note IDENTIFYING INFORMATION Love Skinner MR# [id number] 07/20/2022 HISTORY OF PRESENT ILLNESS Love Skinner is a 67 y.o. male with PMH significant for tobacco use disorder who presented to [facility]SH EDwith nausea, vomiting, and headache found to have interventricular hemorrhage. Symptoms started around 1200 on 07/13/2022 while he was working. He was taken to OSH where CTH demonstrated bilateral IVH L>R. He was transferred [facility] further work-up. He does not take any anticoagulants or antiplatelets. He arrived on cardene drip and SBP less than 140. NIH 3 on arrival for LUE weakness and confusion. INTERVAL HISTORY 07/14: DCA pending today to evaluate for suspected Mcdermott Mcdermott and IVH etiology 07/15: DCA completed, TTE and MRI brain pending 07/18: tx to [facility] 07/19: ALIS overnight, TTE pending, IV fluids due to poor oral intake, Fever- urine culture pending, chest xray pending, blood cultures pending . 07/20: Lisinopril increased to 40 mg. Urine culture unremarkable, blood cx pending. Neuro exam stable. PHYSICAL EXAM Gen: awake, alert, NAD HEENT: normocephalic, no scalp lesions or tenderness, PERRLA, EOMI Neck: trachea midline, no JVD CV: +S1S2, RRR, no m/r/g Lungs: LCTA bilaterally with equal chest rise Abd: soft, nontender, nondistended, +BS x4 quadrants Extrem: Warm and well perfused, no cyanosis, clubbing, edema, 2+ pulses bilaterally Neuro: Disoriented to month and age, ARAGON x4, sensation intact and equal bilaterally CN II - All visual ponce intact CN II/III - PERRLA CN III/IV/ - EOMI CN V - Light touch to face intact in all 3 divisions CN VII - Facial movement intact and symmetrical bilaterally CN VIII - Hearing intact CN X - Cough present CN XI - muscular movement of shoulders and sternocleidomastoid muscles intact and equal bilaterally CN XII - midline protrusion of tongue MOTOR EXAMINATION: no drift noted. NIHSS Provider NIH Stroke Scale NIH Interval (Provider): daily NIH Level of Conciousness (Provider): 1 NIH LOC Questions (Provider): 1 NIH LOC Commands (Provider): 1 NIH Best Gaze (Provider): 0 NIH Visual (Provider): 0 NIH Facial Palsy (Provider): 0 NIH Left Arm Motor (Provider): 1 NIH Right Arm Motor (Provider): 1 NIH Left Leg Motor (Provider): 2 NIH Right Leg Motor (Provider): 2 NIH Limb Ataxia (Provider): 0 NIH Sensory (Provider): 0 NIH Best Language (Provider): 1 NIH Dysarthria (Provider): 1 NIH Extinction and Inattention (Provider): 0 NIH Total Score (Provider): 11 Intracerebral Hemorrhage Volume Intracerebral Hemorrhage Score Score 30 Day Mortality following ICH 0 0% Mortality 1 13% Mortality 2 26% Mortality 3 72% Mortality 4 97% Mortality 5 100% Mortality ASSESSMENT AND PLAN Neuro: IVH c/b hydrocephalus, Advanced B/L MoyaMoya ICH score 1 CTH on arrival: IVH L > R, stable from outside hospital CTA: no spot sign. 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 -Antiplatelet therapy is not indicated. -Anticoagulation therapy not indicated in hemorrhagic stroke -Patients LDL 131 and HgbA1c p were checked and the patient will be discharged on atorvastatin 80 mg -Dysphagia screening ordered, and will be completed prior to patient receiving oral intake. -Stroke education booklet has been provided both written and verbal education to the patient and family regarding hemorrhagic strokes. We have reviewed the patient's personal modifiable risk factors as well as education on reducing these risk factors. -Patient is being assessed for Rehab by PT/OT/Speech and PM&R if indicated. Fever, Leukocytosis -WBC stable at 11-12 -T Max 100.5 F on 07/19, CXR unremarkable, UA with small leukocytes and 10-20 WBC's, Keflex startedon 07/19 -Urine culture no growth - Blood cultures x2 pending Headache -Neuro exam stable, no meningismus -Acetaminophen PRN -Added reglan IV and magnesium IV Hyponatremia -Na 132 -Likely 2/2 poor oral intake -IV hydration ordered -Encourage PO intake -Trend daily HLD -statin as above HTN -Goal SBP < 140 -Lisinopril increased to 40 mg on 07/20 -Norvasc 10 mg initiated 07/19 BPH -Flomax 0.4mg daily -Urology was consulted and they placed toledo -Pending urology recommendations of how long to keep toledo catheter Delirium likely a combination of IVH/hydrocephalus, hospital acquired -PRN seroquel Tobacco use: POA -Nicotine patch -Encourage cessation Love Skinner will likely be discharged TBD, pending completion of stroke workup Monica Walls, [employer] 07/20/2022 9:02 AM VITAL SIGNS Temp: [98 F (36.7 C)-100.5 F (38.1 C)] 98 F (36.7 C) Pulse (Heart Rate): [63-90] 90 Resp Rate: [15-38] 21 BP: (124-190)/(61-88) 169/65 O2 Sat (%): [72 %-96 %] 93 % Weight: [68.7 kg (151 lb 8 oz)] 68.7 kg (151 lb 8 oz) IMAGING/DIAGNOSTIC STUDIES CT HEAD WITHOUT CONTRAST Final Result IMPRESSION: Stable volume of intraventricular hemorrhage and ventricular size since July 18, 2022. CHEST PORTABLE Final Result IMPRESSION: Minimal basilar volume loss; otherwise clear lungs. HEAD WITHOUT CONTRAST Final Result IMPRESSION: No significant change from prior exam on July 17, 2022. The intraventricular hemorrhage with prominence of the lateral ventricles is unchanged. BRAIN WITHOUT CONTRAST Final Result IMPRESSION: Incomplete examination due to patient intolerance. No significant interval change in intraventricular hemorrhage. Ventricular system is stable in size. No progressive hydrocephalus. Incomplete sulcal FLAIR suppression in the bilateral occipital and posterior temporal lobes, which could reflect subarachnoid hemorrhage or be related to hyperoxygenation therapy. I personally viewed and interpreted these images and I have reviewed and approved this report. HEAD WITHOUT CONTRAST Final Result IMPRESSION: Stable intraventricular hemorrhage. No new or increasing intracranial hemorrhage. Stable size of the ventricular system compared to the prior study performed earlier today. I personally viewed and interpreted these images and I have reviewed and approved this report. HEAD WITHOUT CONTRAST Final Result IMPRESSION: No significant change in volume of acute intraventricular hemorrhage. No new or increasing intracranial hemorrhage. Slightly decreased size of the lateral and third ventricles compared to the prior study. I personally viewed and interpreted these images and I have reviewed and approved this report. HEAD WITHOUT CONTRAST Final Result IMPRESSION: Redemonstration of acute intraventricular hemorrhage, overall slightly decreased compared to prior. However, there is slight interval increase in size of the ventricular system compatible with hydrocephalus. HEAD WITHOUT CONTRAST Final Result IMPRESSION: No significant interval change in volume of intraventricular hemorrhage and mild ventricular enlargement. I personally viewed and interpreted these images and I have reviewed and approved this report. HEAD WITHOUT CONTRAST Final Result IMPRESSION: 1. Stable intraventricular hemorrhage without significant midline shift or mass effect. 2. Mild unchanged dilation of the temporal horns which may reflect mild stable hydrocephalus. I personally viewed and interpreted these images and I have reviewed and approved this report. HEAD WITHOUT CONTRAST Final Result IMPRESSION: Stable examination as compared to earlier the same day. Stable intraventricular hemorrhage and ventricular size with mild dilatation of the temporal horns which may reflect mild/early hydrocephalus. CARDIOGRAM (Results Pending) FLUORO IMAGING FOR NEURO ENDOVASCULAR (Results Pending) MEDICATIONS amLODIPine 10 mg Oral Daily aspirin 81 mg Oral Daily Atorvastatin 80 mg Oral QHS cephALEXin 500 mg Oral Q12H enoxaparin 40 mg Subcutaneous Q24H Lisinopril 40 mg Oral Daily nicotine 1 patch Transdermal Daily And VERIFY LINKED PATCH PLACEMENT Other Q12H QUEtiapine 25 mg Oral Q12H senna 8.6 mg Oral Daily Tamsulosin HCl 0.4 mg Oral Daily Associated attestation - Idalmis Machado MD - 07/26/2022 12:06 AM EST I have seen and independently examined the patient on 07/20/2022. I reviewed the laboratory and imaging data. The management plan was constructed in discussion with me. I agree with the note as written by the nurse practitioner: 67 y.o. male with PMH significant for tobacco use disorder who presented to [facility]SH ED with nausea, vomiting, and headache found to have interventricular hemorrhage. CTH on arrival: IVH L > R, stable from outside hospital. CTA: no spot sign. Bilateral ICA occlusions, suspicion for mcdermott mcdermott disease.Repeat CTH 07/14: Stable IVH, no hydrocephalus. LDL 131 HgbA1c 5.7. DCA 07/14: ICA occlusion bilaterally with developement of collateral flow from ECA's and posterior circulation- Mcdermott Mcdermott Lisinopril increased to 40 mg. Urine culture unremarkable, blood cx pending. Neuro exam stable. BP<140/90. Follow up with NSG as an outpatient. 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 male with PMH significant for tobacco use disorder who presented to OSH EDwith nausea, vomiting, and headache found to have interventricular hemorrhage. Symptoms started around 1200 on 07/13/2022 while he was working. He was taken to OSH where CTH demonstrated bilateral IVH L>R. He was transferred to [facility] for further work-up. He does not take any anticoagulants or antiplatelets. He arrived on cardene drip and SBP less than 140. NIH 3 on arrival for LUE weakness and confusion. INTERVAL HISTORY 07/14: DCA pending today to evaluate for suspected Mcdermott Mcdermott and IVH etiology 07/15: DCA completed, TTE and MRI brain pending 07/18: tx to [facility] 07/19: ALIS overnight, TTE pending, IV fluids due to poor oral intake, Fever- urine culture pending, chest xray pending, blood cultures pending . PHYSICAL EXAM Gen: awake, alert, NAD HEENT: normocephalic, no scalp lesions or tenderness, PERRLA, EOMI Neck: trachea midline, no JVD CV: +S1S2, RRR, no m/r/g Lungs: LCTA bilaterally with equal chest rise Abd: soft, nontender, nondistended, +BS x4 quadrants Extrem: Warm and well perfused, no cyanosis, clubbing, edema, 2+ pulses bilaterally Neuro: Disoriented to month and age, ARAGON x4, sensation intact and equal bilaterally CN II - All visual ponce intact CN II/III - PERRLA CN III/IV/ - EOMI CN V - Light touch to face intact in all 3 divisions CN VII - Facial movement intact and symmetrical bilaterally CN VIII - Hearing intact CN X - Cough present CN XI - muscular movement of shoulders and sternocleidomastoid muscles intact and equal bilaterally CN XII - midline protrusion of tongue MOTOR EXAMINATION: no drift noted. NIHSS Provider NIH Stroke Scale NIH Interval (Provider): daily NIH Level of Conciousness (Provider): 0 NIH LOC Questions (Provider): 2 NIH LOC Commands (Provider): 0 NIH Best Gaze (Provider): 0 NIH Visual (Provider): 0 NIH Facial Palsy (Provider): 0 NIH Left Arm Motor (Provider): 0 NIH Right Arm Motor (Provider): 0 NIH Left Leg Motor (Provider): 0 NIH Right Leg Motor (Provider): 0 NIH Limb Ataxia (Provider): 0 NIH Sensory (Provider): 0 NIH Best Language (Provider): 0 NIH Dysarthria (Provider): 0 NIH Extinction and Inattention (Provider): 0 NIH Total Score (Provider): 2 Intracerebral Hemorrhage Volume Intracerebral Hemorrhage Score Score 30 Day Mortality following ICH 0 0% Mortality 1 13% Mortality 2 26% Mortality 3 72% Mortality 4 97% Mortality 5 100% Mortality ASSESSMENT AND PLAN Neuro: IVH c/b hydrocephalus, Advanced B/L MoyaMoya ICH score 1 CTH on arrival: IVH L > R, stable from outside hospital CTA: no spot sign. 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 -Antiplatelet therapy is not indicated. -Anticoagulation therapy not indicated in hemorrhagic stroke -Patients LDL 131 and HgbA1c p were checked and the patient will be discharged on atorvastatin 80 mg -Dysphagia screening ordered, and will be completed prior to patient receiving oral intake. -Stroke education booklet has been provided both written and verbal education to the patient and family regarding hemorrhagic strokes. We have reviewed the patient's personal modifiable risk factors as well as education on reducing these risk factors. -Patient is being assessed for Rehab by PT/OT/Speech and PM&R if indicated. Fever Leukocytosis -WBC 11.1 from 12.03 -T Max 100.5 F -No hypoxia, on RA -Chest xray pending -UA with small leukocytes and 10-20 WBC's. -No flank pain, abdominal pain, nausea, or vomiting -Urine culture pending -Reached out to urology-they will see if urine culture is positive and will exchange his catheter over a wire if UTI present - Blood cultures x2 pending -If neuro exam changes consider central cause of fever and obtain CT head -No meningismus or concern for meningitis at this time -Continue to monitor at this time Headache -Neuro exam stable, no meningismus -Acetaminophen PRN -Added reglan IV and magnesium IV Hyponatremia -Na 133 -Likely 2/2 poor oral intake -IV hydration ordered -Encourage PO intake -Trend daily HLD -statin as above HTN -Goal SBP < 140 -Lisinopril 20 mg daily -Norvasc 10 mg daily ordered 07/19 BPH -Flomax 0.4mg daily -Urology was consulted and they placed toledo -Pending urology recommendations of how long to keep toledo catheter Delirium likely a combination of IVH/hydrocephalus, hospital acquired -PRN seroquel Tobacco use: POA -Nicotine patch -Encourage cessation Love Skinner will likely be discharged TBD, pending completion of stroke workup Annie Hutchins, [employer] 07/19/2022 9:26 AM VITAL SIGNS Temp: [98.3 F (36.8 C)-99.7 F (37.6 C)] 99.5 F (37.5 C) Pulse (Heart Rate): [61-103] 61 Resp Rate: [13-32] 18 BP: (127-188)/(64-86) 171/73 O2 Sat (%): [91 %-96 %] 94 % IMAGING/DIAGNOSTIC STUDIES CT HEAD WITHOUT CONTRAST Final Result IMPRESSION: No significant change from prior exam on July 17, 2022. The intraventricular hemorrhage with prominence of the lateral ventricles is unchanged. BRAIN WITHOUT CONTRAST Final Result IMPRESSION: Incomplete examination due to patient intolerance. No significant interval change in intraventricular hemorrhage. Ventricular system is stable in size. No progressive hydrocephalus. Incomplete sulcal FLAIR suppression in the bilateral occipital and posterior temporal lobes, which could reflect subarachnoid hemorrhage or be related to hyperoxygenation therapy. I personally viewed and interpreted these images and I have reviewed and approved this report. HEAD WITHOUT CONTRAST Final Result IMPRESSION: Stable intraventricular hemorrhage. No new or increasing intracranial hemorrhage. Stable size of the ventricular system compared to the prior study performed earlier today. I personally viewed and interpreted these images and I have reviewed and approved this report. HEAD WITHOUT CONTRAST Final Result IMPRESSION: No significant change in volume of acute intraventricular hemorrhage. No new or increasing intracranial hemorrhage. Slightly decreased size of the lateral and third ventricles compared to the prior study. I personally viewed and interpreted these images and I have reviewed and approved this report. HEAD WITHOUT CONTRAST Final Result IMPRESSION: Redemonstration of acute intraventricular hemorrhage, overall slightly decreased compared to prior. However, there is slight interval increase in size of the ventricular system compatible with hydrocephalus. HEAD WITHOUT CONTRAST Final Result IMPRESSION: No significant interval change in volume of intraventricular hemorrhage and mild ventricular enlargement. I personally viewed and interpreted these images and I have reviewed and approved this report. HEAD WITHOUT CONTRAST Final Result IMPRESSION: 1. Stable intraventricular hemorrhage without significant midline shift or mass effect. 2. Mild unchanged dilation of the temporal horns which may reflect mild stable hydrocephalus. I personally viewed and interpreted these images and I have reviewed and approved this report. HEAD WITHOUT CONTRAST Final Result IMPRESSION: Stable examination as compared to earlier the same day. Stable intraventricular hemorrhage and ventricular size with mild dilatation of the temporal horns which may reflect mild/early hydrocephalus. CARDIOGRAM (Results Pending) FLUORO IMAGING FOR NEURO ENDOVASCULAR (Results Pending) MEDICATIONS Atorvastatin 80 mg Oral QHS enoxaparin 40 mg Subcutaneous Q24H Lisinopril 20 mg Oral Daily nicotine 1 patch Transdermal Daily And VERIFY LINKED PATCH PLACEMENT Other Q12H QUEtiapine 25 mg Oral Q12H senna 8.6 mg Oral Daily Tamsulosin HCl 0.4 mg Oral Daily Associated attestation - Idalmis Machado MD - 07/26/2022 12:05 AM EST I have seen and independently examined the patient on 07/19/2022. I reviewed the laboratory and imaging data. The management plan was constructed in discussion with me. I agree with the note as written by the nurse practitioner: 67 y.o. male with PMH significant for tobacco use disorder who presented to OSH ED with nausea, vomiting, and headache found to have interventricular hemorrhage. CTH on arrival: IVH L > R, stable from outside hospital. CTA: no spot sign. Bilateral ICA occlusions, suspicion for mcdermott mcdermott disease.Repeat CTH 07/14: Stable IVH, no hydrocephalus. LDL 131 HgbA1c 5.7. DCA 07/14: ICA occlusion bilaterally with developement of collateral flow from ECA's and posterior circulation- Mcdermott Mcdermott No acute evenst overnight. IV fluids due to poor oral intake, Fever-urine culture pending, chest xray pending, blood cultures BP<140/90. Follow up with NSG as an outpatient. 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 male with PMH significant for tobacco use disorder who presented to OSH EDwith nausea, vomiting, and headache found to have interventricular hemorrhage. Symptoms started around 1200 on 07/13/2022 while he was working. He was taken to OSH where CTH demonstrated bilateral IVH L>R. He was transferred to [facility] for further work-up. He does not take any anticoagulants or antiplatelets. He arrived on cardene drip and SBP less than 140. NIH 3 on arrival for LUE weakness and confusion. INTERVAL HISTORY 07/14: DCA pending today to evaluate for suspected Mcdermott Mcdermott and IVH etiology 07/15: DCA completed, TTE and MRI brain pending 07/18: tx to [facility] PHYSICAL EXAM Gen: awake, alert, NAD HEENT: normocephalic, no scalp lesions or tenderness, PERRLA, EOMI Neck: trachea midline, no JVD CV: +S1S2, RRR, no m/r/g Lungs: LCTA bilaterally with equal chest rise Abd: soft, nontender, nondistended, +BS x4 quadrants Extrem: Warm and well perfused, no cyanosis, clubbing, edema, 2+ pulses bilaterally Neuro: Oriented x4, ARAGON x4, sensation intact and equal bilaterally CN II - All visual ponce intact CN II/III - PERRLA CN III/IV/ - EOMI CN V - Light touch to face intact in all 3 divisions CN VII - Facial movement intact and symmetrical bilaterally CN VIII - Hearing intact CN X - Cough present CN XI - muscular movement of shoulders and sternocleidomastoid muscles intact and equal bilaterally CN XII - midline protrusion of tongue MOTOR EXAMINATION: no drift noted. Finger to nose testing with LUE/RUE with ataxia. NIHSS Provider NIH Stroke Scale NIH Interval (Provider): daily NIH Level of Conciousness (Provider): 0 NIH LOC Questions (Provider): 0 NIH LOC Commands (Provider): 0 NIH Best Gaze (Provider): 0 NIH Visual (Provider): 0 NIH Facial Palsy (Provider): 0 NIH Left Arm Motor (Provider): 0 NIH Right Arm Motor (Provider): 0 NIH Left Leg Motor (Provider): 0 NIH Right Leg Motor (Provider): 0 NIH Limb Ataxia (Provider): 0 NIH Sensory (Provider): 0 NIH Best Language (Provider): 0 NIH Dysarthria (Provider): 0 NIH Extinction and Inattention (Provider): 0 NIH Total Score (Provider): 0 Intracerebral Hemorrhage Volume Intracerebral Hemorrhage Score Score 30 Day Mortality following ICH 0 0% Mortality 1 13% Mortality 2 26% Mortality 3 72% Mortality 4 97% Mortality 5 100% Mortality ASSESSMENT AND PLAN Neuro: IVH c/b hydrocephalus, Advanced B/L MoyaMoya ICH score 1 CTH on arrival: IVH L > R, stable from outside hospital CTA: no spot sign. 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 -Antiplatelet therapy is not indicated. -Anticoagulation therapy not indicated in hemorrhagic stroke -Patients LDL 131 and HgbA1c p were checked and the patient will be discharged on atorvastatin 80 mg -Dysphagia screening ordered, and will be completed prior to patient receiving oral intake. -Stroke education booklet has been provided both written and verbal education to the patient and family regarding hemorrhagic strokes. We have reviewed the patient's personal modifiable risk factors as well as education on reducing these risk factors. -Patient is being assessed for Rehab by PT/OT/Speech and PM&R if indicated. HLD -statin as above HTN -lisinopril 20 mg every day -next move would be to start norvasc 5 mg every day if above 160 BPH -flomax -urology was consulted and they placed toledo -will need to reach out to them to see when to DC toledo cath Leukocytosis without fever -UA negative -CTM for now Delirium likely a combination of IVH/hydrocephalus, hospital acquired -serojomarl Megan Perea MD 07/18/2022 2:15 PM VITAL SIGNS Temp: [98.3 F (36.8 C)-100.2 F (37.9 C)] 98.3 F (36.8 C) Pulse (Heart Rate): [69-103] 84 Resp Rate: [15-33] 24 BP: (118-183)/(46-92) 157/73 O2 Sat (%): [90 %-100 %] 91 % IMAGING/DIAGNOSTIC STUDIES MRI BRAIN WITHOUT CONTRAST Final Result IMPRESSION: Incomplete examination due to patient intolerance. No significant interval change in intraventricular hemorrhage. Ventricular system is stable in size. No progressive hydrocephalus. Incomplete sulcal FLAIR suppression in the bilateral occipital and posterior temporal lobes, which could reflect subarachnoid hemorrhage or be related to hyperoxygenation therapy. I personally viewed and interpreted these images and I have reviewed and approved this report. HEAD WITHOUT CONTRAST Final Result IMPRESSION: Stable intraventricular hemorrhage. No new or increasing intracranial hemorrhage. Stable size of the ventricular system compared to the prior study performed earlier today. I personally viewed and interpreted these images and I have reviewed and approved this report. HEAD WITHOUT CONTRAST Final Result IMPRESSION: No significant change in volume of acute intraventricular hemorrhage. No new or increasing intracranial hemorrhage. Slightly decreased size of the lateral and third ventricles compared to the prior study. I personally viewed and interpreted these images and I have reviewed and approved this report. HEAD WITHOUT CONTRAST Final Result IMPRESSION: Redemonstration of acute intraventricular hemorrhage, overall slightly decreased compared to prior. However, there is slight interval increase in size of the ventricular system compatible with hydrocephalus. HEAD WITHOUT CONTRAST Final Result IMPRESSION: No significant interval change in volume of intraventricular hemorrhage and mild ventricular enlargement. I personally viewed and interpreted these images and I have reviewed and approved this report. HEAD WITHOUT CONTRAST Final Result IMPRESSION: 1. Stable intraventricular hemorrhage without significant midline shift or mass effect. 2. Mild unchanged dilation of the temporal horns which may reflect mild stable hydrocephalus. I personally viewed and interpreted these images and I have reviewed and approved this report. HEAD WITHOUT CONTRAST Final Result IMPRESSION: Stable examination as compared to earlier the same day. Stable intraventricular hemorrhage and ventricular size with mild dilatation of the temporal horns which may reflect mild/early hydrocephalus. CARDIOGRAM (Results Pending) FLUORO IMAGING FOR NEURO ENDOVASCULAR (Results Pending) MEDICATIONS Atorvastatin 80 mg Oral QHS enoxaparin 40 mg Subcutaneous Q24H [START ON 07/19/2022] Lisinopril 20 mg Oral Daily nicotine 1 patch Transdermal Daily And VERIFY LINKED PATCH PLACEMENT Other Q12H QUEtiapine 25 mg Oral Q12H senna 8.6 mg Oral Daily Tamsulosin HCl 0.4 mg Oral Daily Associated attestation - Idalmis Machado MD - 07/26/2022 12:04 AM EST I have seen and examined the patient with the resident on 07/18/2022. I have personally reviewed all the imaging as noted below, laboratory data and reviewed the resident's note. I agree with resident's assessment and plan with the following additions: 67 y.o. male with PMH significant for tobacco use disorder who presented to OSH ED with nausea, vomiting, and headache found to have interventricular hemorrhage. CTH on arrival: IVH L > R, stable from outside hospital. CTA: no spot sign. Bilateral ICA occlusions, suspicion for mcdermott mcdermott disease.Repeat CTH 07/14: Stable IVH, no hydrocephalus. LDL 131 HgbA1c 5.7. DCA 07/14: ICA occlusion bilaterally with developement of collateral flow from ECA's and posterior circulation- Mcdermott Mcdermott No acute events overnight. Stable neurological exam with NIHSS-0. BP<140/90. Follow up with NSG as an outpatient. OT/PT/MICROBIOLOGICAL LAB TECHNICIAN * Clau Marinelli MD - 07/18/2022 7:49 AM EST NEUROCRITICAL CARE DAILY NOTE HOSPITAL VISIT DEMOGRAPHICS Patient: Love Skinner Code status: Full Code Admission date: 07/14/2022 3:12 AM Hospital days: LOS: 4 days HISTORY OF PRESENT ILLNESS Love Skinner is a 67 y.o. male with a past history of tobacco-use (0.5 PPD) and marijuana-use. The patient presented to OSH with acute onset severe headache, N&V, LUE drift, and AMS. LKW 07/14 1200. CTH demonstrated hemorrhage in bilateral lateral ventricles L>R. Patient transferred to [facility] for further management. Upon arrival to [facility], he was on a cardene gtt for SBP <140. CTH demonstrated stable-appearing IVHof the bilateral lateral ventricles and basal cistern w/o evidence of hydrocephalus. 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 INTERVAL HISTORY SINCE ADMISSION 07/14/2022: admitted to [facility] 07/15: precedex/seroquel for agitation. Start lisinopril. 07/16 increased seroquel 07/16: Increase lisinopril, CTH, SBP changed to < 160 07/18: NAEON PHYSICAL EXAM GENERAL: Alert, no acute distress. Eating breakfast, sitter at bedside HEENT: normocephalic, no scalp wounds nor lesions, dentures intact CARDIO: +S1S2, RRR, no murmurs, no edema. NSR on tele PULM: diminished to auscultation in bases bilaterally, no expiratory wheeze. Respirations unlabored. Tolerating RA ABDOMINAL: flat, soft, nontender, nondistended, active bowel sounds EXTREMITIES: no wounds or lesions VASCULAR: 2+ distal pulses, capillary refill <3 seconds NEURO: Mental status: somnolent on evaluation but arouses to voice and gentle stim Speech/language: no dysarthria Cranial nerves: No gaze deviation, PERRL Motor: Normal bulk and tone. No UE drift. 5/5 strength x4 Sensation: Extremity sensation intact throughout. ASSESSMENT AND PLAN Neuro: Bilateral Lateral Ventricular Hemorrhage Bilateral ICA Occlusion with Reconsitution Concern for Mcdermott Mcdermott Headache Acute emcephalopathy Acute hydrocephalus - IVH Management: - Monitor neurostatus with neurochecks Q2H and pupilometer Q2H - Prevent further expansion with goal SBP <160 (see cards) - 07/14 NSGY consult: possible EVD placement if hydrocephalus - 07/14 DCA: bilateral ICA occlusion with collateral flow from ECA's and posterior circulation - Plans to revascularize once recovered from IVH - Imaging: - 07/13 CTA H/N: occlusion of bilateral internal carotid arteries; 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 No evidence of hydrocephalus. - 07/14 CTH (0630, 6h stability): stable -07/16 CTH stable, will follow clinical exam amd repeat prn ,emtal status changes -07/16 CTH obtained in pm d/t acute MS change-increase in hydrocephalus -07/17 CTH - MRI B w/wo: Pending - Cytotoxic Cerebral Edema Management: - Goal Na 135 - 145; monitor Na daily Recent Labs 07/16/22 0009 07/17/22 0029 07/18/22 0019 SODIUM 141 138 138 OSMOLALITY 299 295 293 CHLORIDE 111* 107 108 - Hemorrhage presumably 2/2 unknown (HTN? Atherosclerotic?) etiology; evaluation for cause and source: - Complete TTE (see cards) - Obtain LDL level and statin therapy if indicated (131) - Obtain HA1C level (5.7) - Defer antiplatelet therapy and therapeutic anticoagulation - Consider urine drug screen on admission if no stroke risk factors: THC - Consider hypercoagulability panel 24H-post tPA if no stroke risk factors - Initiate VTE prophylaxis after bleed stability established (see heme) - Pain/Sedation management - Tylenol 650mg Q4H PRN - precedex-wean to off - Seroquel 25 mg BID Psych: No Current Issues Pulm: Emphysema Tobacco-Use Marijuana-Use O2 Sat (%): 92 % (07/18 0700) O2 Device: room air (07/18 0400) - Goal SpO2 >92%; wean FiO2 as tolerated - [id number], encourage pulmonary toileting - PRN Duonebs - Nicotine patch Cards: HLD Acute hypertension Temp: [98 F (36.7 C)-100.2 F (37.9 C)] 99.4 F (37.4 C) Pulse (Heart Rate): [66-103] 97 Resp Rate: [15-43] 24 BP: (114-183)/(46-92) 160/72 O2 Sat (%): [90 %-100 %] 92 % - Goal SBP <160, MAP >65 - Home antihypertensives: none - 07/17 lisinopril increased to 10 mg daily, consider adding amlodipine 5 mg tomorrow if remains high - cardene gtt-titrating to off - PRN labetalol and hydralazine - TTE: pending - Atorvastatin 80 mg QD Recent Labs 07/13/22 2339 CHOLESTEROL 195 TRIG 63 HDL 51 LDL 131 Renal/: Hypocalcemia Hypokalemia Traumatic [place] placement BPH Acute urinary Retention - Fluid Balance: - Goal: euvolemia Intake/Output Summary (Last 24 hours) at 07/18/2022 0750 Last data filed at 07/18/2022 0551 Gross per 24 hour Intake 657.41 ml Output 2475 ml Net -1817.59 ml - BPH/traumatic [place] placement: - Flomax - [place] placed per urology, appreciate recs: - Recommend keeping catheter in place for 72h (at least until 12 AM) prior to a trial of void - Will consider dc on 07/18 - This was a complex catheter placement, the catheter is NOT to be removed prior to the above date w/o first discussing w/ the Urology consults team - Daily Chem 10 - Electrolytes replaced per [facility] protocol Recent Labs 07/17/22 0029 07/18/22 0019 SODIUM 138 138 POTASSIUM 3.4* 3.9 CHLORIDE 107 108 CO2 20* 23 BUN 27* 18 CREATSERUM 0.80 0.66* MAGNESIUM 2.1 1.7 PHOSPHORUS 2.8 3.2 ICA 4.53* 4.49* GI/Nutrition: No Current Issues No results for input(s): ALBUMIN, BILIDIRECT, BILITOTAL, ALKPHOS, ALT, AST, TP, AMYLASE, LIPASE in the last 72 hours. - DIET REGULAR - Sherry Swallow Screening Result: passed=cleared for oral intake - Consult nutrition for malnutrition screening - There is no height or weight on file to calculate BMI. - 07/13 LFT: WNL - Bowel regimen: - Last Bowel Movement: 07/16/22 - Senna, prn miralax Endo: Risk for Stress-Induced Hyperglycemia (resolved) - Goal blood glucose 140-180 - Hb A1c 5.7% Recent Labs 07/16/22 0009 07/17/22 0029 07/18/22 0019 GLUCOSE 116* 130* 130* ID: Acute leukocytosis (likely secondary stress reaction) Recent Labs 07/17/22 0029 07/18/22 0019 WBC 11.75* 12.03* - Temp (24hrs), Av.2 F (37.3 C), Min:98 F (36.7 C), Max:100.2 F (37.9 C) - PRN Tylenol for T>100.4F -WBC trending up but temp okay, will cont to trend and consider repeat UA if upward trend continues - Most recent and positive cultures: Date Collected Source Result Date Finalized 07/14 UA negative 07/14 MRSA swab negative - Antiinfectives: Start Date Antiinfective Coverage Course Length Stop Date 07/14 Ancef Urethral trauma x1 dose 07/14 Heme/Onc: No Current Issues Recent Labs 07/16/22 1920 07/17/22 0029 07/18/22 0019 WBC -- 11.75* 12.03* RBC -- 4.18* 4.07* HGB -- 12.9* 12.8* HCT -- 37.3* 37.1* PLATELET -- 237 234 PT 14.3* -- -- PTT 33.2 -- -- INR 1.1 -- -- - Goal plt >100, INR <1.4, Hgb >7 Musc: No Current Issues - PT/OT consulted and following - Current Activity Order: AAT Social/Dispo: - Code status: Full Code - Primary Emergency Contact: Rajiv Skinner - Discharge planning per PCRM/SW. - ICU diary ICU Checklist: [ ] CAM-ICU [ ] ICU diary update 07/16 [x ] DVT ppx; [x ] SCDs; [X ] Lovenox [ ] heparin [ ] Stress ulcer prophylaxis: none - Lines/Tubes: [place]: CVC: [place]: inserted 07/14, (indication: BPH,urinary retention-see above) Rectal tube: Enteral access: Patient seen and plan of care discussed with [facility] Attending, Dr. Bria Marinelli MD Emergency Medicine / Internal Medicine PGY-2 # [id number] Associated attestation - Candida Fraser MD - 07/18/2022 5:25 PM EST I saw and examined patient 07/18/22 I have reviewed imaging studies and laboratory test results. I have reviewed the medications and other orders. I agree with the resident's/APRNnote except for/in addition to what is noted below. I myself devised the plan of care above (refer to my note below for a dditions). Please refer to the resident's note for details. 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 He was on Nicardipine drip @ 5 mg/hr On exam he is laying in bed awake alert oriented to self and place, did not know the day or date. Pupils are equal and reactive EMOI Face symmetric Move all ext antigravity Lab Results Component Value Date WBC 12.03 (H) 07/18/2022 HGB 12.8 (L) 07/18/2022 HCT 37.1 (L) 07/18/2022 PLATELET 234 07/18/2022 MCV 91.2 07/18/2022 Lab Results Component Value Date CREATSERUM 0.66 (L) 07/18/2022 BUN 18 07/18/2022 SODIUM 138 07/18/2022 POTASSIUM 3.9 07/18/2022 CHLORIDE 108 07/18/2022 CO2 23 07/18/2022 Incomplete examination due to patient intolerance. No significant interval change in intraventricular hemorrhage. Ventricular system is stable in size. No progressive hydrocephalus. Incomplete sulcal FLAIR suppression in the bilateral occipital and posterior temporal lobes, which could reflect subarachnoid hemorrhage or be related to hyperoxygenation therapy. 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 (DOC:[id number]) * Candida Fraser MD - 07/17/2022 11:28 PM EST Neuro-Critical care Progress note: 67 yo man with hx of tobacco use presented with acute headache was found to have IVH. 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 He has fluctuating exam with worsening hydrocephalus which improves overnight. This morning he was laying in bed comfortably, he is in no acute distress. Eyes opens oriented to self and place and follow commands. PERRLA, EMOI Face symmetric Move all ext symmetrically Vitals: 07/17/22 2200 07/17/22 2215 07/17/22 2230 07/17/22 2300 BP: 183/82 156/72 145/68 156/77 Pulse: 86 79 74 71 Resp: (!) 27 (!) 26 21 19 Temp: 99 degrees F (37.2 degrees C) TempSrc: Oral SpO2: 98% 99% 99% 97% Weight: Lab Results Component Value Date WBC 11.75 (H) 07/17/2022 HGB 12.9 (L) 07/17/2022 HCT 37.3 (L) 07/17/2022 PLATELET 237 07/17/2022 MCV 89.2 07/17/2022 Lab Results Component Value Date CREATSERUM 0.80 07/17/2022 BUN 27 (H) 07/17/2022 SODIUM 138 07/17/2022 POTASSIUM 3.4 (L) 07/17/2022 CHLORIDE 107 07/17/2022 CO2 20 (L) 07/17/2022 CT head: Stable intraventricular hemorrhage. No new or increasing intracranial hemorrhage. Stable size of the ventricular system compared to the prior study performed earlier today. 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 vs primary HTN bleed Hydrocephalus Acute Encephalopathy due hydrocephalus improved SBP<160 Neuro check q1h Mcdermott-Mcdermott w/u - MARQUEZ: negative - CRP: 3.96 -->10.62->27- will no longer follow - ESR: 8 - RF: <10 - TSH/FT4 reflex: 0.723 HTN Emergency SBP<160 TTE pending Labetalol and hydralazine prn Lisinopril 10 mg daily Emphysema Tobacco-Use Marijuana-Use Goal SpO2 >92%; wean FiO2 as tolerated - [id number], encourage pulmonary toileting - PRN Duonebs - nicotine patch The patient is critically ill due to intraventricular hemorrhage and acute encephalopathy , hydrocephalus requiring close neurological and hemodynamic monitoring and intravenous antihypertensive medications frequent neurochecks . Critical care time spent is 30 minutes Candida Fraser MD, Division of Neurocritical Care @today@ 11:50 PM * MIGUEL A Rubio - 07/17/2022 2:10 PM EST Acute Care MICROBIOLOGICAL LAB TECHNICIAN Speech/Language/Cognitive Evaluation Best mode of Communication: spoken language (regular speech), responds to yes/no questions Communication Strategies: Simple Y/N questions Discharge Recommendations: Based on the below outcome measures/assessment score(s) and MICROBIOLOGICAL LAB TECHNICIAN clinicaljudgment, discharge destination recommendation is: Deferred to PT/OT recomendations related to mobility Barriers to discharge home: Cognitive impairments that impact safety and independence Supporting factors for discharge setting: Impaired cognitive skills limiting safety/insight, Impaired cognitive skills limiting functional problem solving in immediate environment Acute MICROBIOLOGICAL LAB TECHNICIAN Outcomes Tracking Communicate basic wants and needs?: yes Demo insight/appreciation of deficits?: yes Complete basic problem solving?: yes Current therapy frequency recommendation in acute: Speech/Lang/Cog Therapy Frequency: 3 times a week Clinical Impression: [facility] presents with impaired cognition, characterized by reduced memory, attention, problem-solving and awareness, s/p onset of severe headache with . These deficits result in functional limitations in overall independence. Pt demonstrates inability to verbalize his location or reason for hospitalization. Pt demonstrates reduced awareness of deficits, both physically and cognitively. Pt unable to recall components of recent conversations and demonstrates frequent perseverations. Pt incapable of following multi-step directions or completing complex problem-solving, creating difficulties participating in POC discussions, as well as overall safety awareness and independence. Skilled ST services are medically necessary to facilitate a successful transition from hospital setting. Patient Instruction/Education this session: plans/impressions Plan for next session: Target safety awareness and memory strategies. Subjective: Pt cleared for visit by RNsheryl present. Pt alert and cooperative throughout evaluation. Pt perseverates on going home and does not appear to understand reason for hospitalization. Pain: General Pain Documentation (Adult, OB, Peds) Presence of Pain: denies pain/discomfort DVPRS (Defense and Veterans Pain Rating Scale) DVPRS: Rest: 0- no pain DVPRS: Activity: 0- no pain Patient History Comments: Pt is a 67 y.o. male who presented to [facility] an [facility] with severe headache, N&V, LUE drift and AMS. Pt transferred to [facility] for further care. Upon arrival, CTH demonstrates stable-appearing IVH pf bilateral lateral ventricles and basal cistern w/o evidence of hydrocephalus. Pt demonstrated transient hydrocephalus night prior which has since resolved. Prior Level of Function: Unknown at this time. Respiratory Status: O2 Sat (%): 97 % (07/17 1400) O2 Device: room air (07/17 1400) EXPRESSIVE LANGUAGE: Functional Task: Imitates Gestures Functional Automatic Speech Functional Phrase Completion Functional Confrontation Naming Functional Answering 'wh' Questions Functional Repetition Functional Verbalize Basic Wants and Needs Functional Functional Participation in Conversation Functional Expressive Language Characteristics: Fluent RECEPTIVE LANGUAGE: Functional Task: Identify Functional Objects Functional Follow 1-Step Commands Functional Follow 2+ Step Commands Impaired Answers Basic Y/N Questions Functional Answers Complex Y/N Questions Impaired Conversational Comprehension Impaired READING: Functional Task: Letter Identification Functional Single Words Aloud Functional Single Word Comprehension Functional Sentence Comprehension Functional Functional Environmental Reading Functional WRITING: Impaired Task: Copying Impaired Writing to Dictation Impaired Writing Biographical Information Impaired Writing Single Words Impaired Writing Sentences Impaired Functional Writing Impaired SOCIAL INTERACTION/PRAGMATICS: Functional Task: Initiates Conversation Impaired Takes Turns in Communication Functional Maintains Eye Contact Functional Maintains Topic Functional Shifts Topics Appropriately Impaired Affect Impaired Responds Appropriately to Questions Impaired COGNITION: Impaired Task: Arousal/Alertness Appropriate responses to stimuli Orientation Level Oriented to person, Oriented to time Safety Judgment Decreased awareness of need for assistance Awareness of Errors Decreased awareness of errors Deficits Decreased awareness of deficits Attention Span Difficulty attending to directions, Difficulty dividing attention Memory Decreased recall of recent events, Decreased recall of precautions Problem Solving Assistance required to generate solutions, Assistance required to implement solutions Cognition Comments Pt demonstrates impaired cognition. Pt demonstrates inability to follow multi-step directions, increased processing time and decreased accuracy for basic problem solving and inability to complete complex problem solving. Pt easily distractible and perseverates on leaving hospital. Pt unable to recall safety precautions, such as how to contact nurse or why he should not leave his bed. CRANIAL NERVE EXAMINATION: Cranial Nerve Exam CN V (Trigeminal) strong equal bilateral strength of masseter and temporal muscles CN VII (Facial) strong bilateral movement of upper and lower face CN IX (glossopharyngeal) uvula is midline, soft palate and pharynx rise symmetrically when patient says 'ahhh' CN X (Vagus) uvula is midline CN XI (Accessory) strong and equal rotation of head, strong and equal shoulder shrug CN XII (Hypoglossal) no abnormal tongue movements MOTOR SPEECH TASKS: Intact Task: Imitate Motor Movements Imitate Sounds and Words Rapid Alternating Movements Speech Intelligibility Fluency Saliva Management VOCAL PARAMETERS: Intact Task: Breath Support Coordination of Respiration and Phonation Duration of Phonation Pitch Control Loudness Vocal Quality GRBAS: A perceptual rating scale for voice parameters Rating scale of 0 to 3 0 = no impairment 1 = minimal to mild impairment 2 = moderate impairment 3 = severe impairment Subjective Voice Evaluation Grade of dysphonia (G): 0 Roughness (R): 0 Breathiness (B): 0 Asthenia (A): 0 Strain (S): 0 MICROBIOLOGICAL LAB TECHNICIAN Outcomes: The Orientation Log (O-Log) is designed to be a quick quantitative measure of orientational status for use at bedside with rehabilitation inpatients. Place, time, and situational (Etiology/Event + Pathology/Deficits) domains are assessed. Patient responses are scored according to the following criteria: 3 = correct spontaneously or upon first free recall attempt; 2 = correct upon logical cueing (e.g., That was yesterday, so today must be ); 1 = correct upon multiple choice or phonemic cuing; and 0 = incorrect despite cueing, inappropriate response, or unable to respond. Patient scored this date. Patient with deficits in the areas of orientation to time, day, and situation Date: 3 Time: 3 City: [address]:2 Name of Hospital:0 Month: 3 Date:3 Year:3 Day of week:1 Clock time:3 Etiology/Event:2 Pathology/Deficits:2 The Cognitive Log (Cog-Log) is designed to be a quick quantitative measure of cognition for use at bedside with rehabilitation patients. It is intended for individuals who have achieved consistent accurate orientation, such as measured by the Orientation Log (O-Log). The Cog-Log can be used to document cognitive progress on a daily basis, in the areas of immediate memory, reasoning, thought organization and attention. All items are scored from 0 to 3 for a total possible score of 30, which can be graphed for quick reference. Patient scored 07/24 this date. Deficits noted in the areas of Memory, attention. Date: 3 Time: 3 Name of Hospital: 0 Repeat Address: 0 20-1: 2 Months Reversed: 0 30 Seconds: 0 Fist-EdgePalm: 1 Go/No-Go: 3 Address: 0 Acute MICROBIOLOGICAL LAB TECHNICIAN Goals Notes from 07/17/2022 2:42 AM through 07/17/2022 2:42 PM Problem: MICROBIOLOGICAL LAB TECHNICIAN - Cognition Goal: Memory Goal 1 Description: Patient will utilize compensatory memory strategies to teach back at least 3 facts related to their hospitalization/POC across a 5 minute delay across at least 2 consecutive sessions to support generalization of strategy use and pt's self-advocacy, min cues by discharge. Outcome: Ongoing Goal: Problem Solving Goal 1 Description: Patient will complete basic problem solving tasks in at least 3/5 of opportunities in their immediate environment to support self-advocacy and independence, given min cues across 2 consecutive sessions by discharge. Outcome: Ongoing Goal: Meticognition Goal 1 Description: Patient will identify at least 3 deficits related to medical condition and how deficits will impact ability to return home with min cues across 2-3 sessions to improve insight and safety. Outcome: Ongoing Goal: Orientation Goal Description: Patient will recall/implement use of orientation strategies, given min -no cues, to demonstrate improved awareness and insight as measured by achieving a 27/30 on The Orientation Log, across 1-2 sessions. Outcome: Ongoing I used facemask, protective eye shield, and gloves in today's patient interaction. Speech Language Pathologist: MIGUEL A Rubio Time In: 1410 Time Out: 1435 Total Visit Time: 25 minutes Total Treatment Time (skilled, billable minutes): 25 minutes Patient location at end of session: bed with head of bed elevated Alarms on at end of session: unchanged by MICROBIOLOGICAL LAB TECHNICIAN Needs in reach: Yes Upon discontinuation of Acute Care Speech Therapy Services or patient discharge from the hospital this note represents the current Speech Therapy Discharge Summary * Héctor Araya MD - 07/17/2022 10:14 AM EST NSGY daily prog note S: transient hydro overnight since resolved PE: Temp: [98.2 F (36.8 C)-99.6 F (37.6 C)] 98.2 F (36.8 C) Pulse (Heart Rate): [52-95] 75 Resp Rate: [16-40] 20 BP: (104-168)/(54-81) 130/62 O2 Sat (%): [96 %-100 %] 98 % NAD A&Ox2 PERRL EOMI FS TM 11/27 RUE; 11/27 LUE 11/27 RLE; 11/27 LLE SILT Groin c/d/i WBC/Hgb/Hct/Plts: 11.75/12.9/37.3/237 (07/17 29) Na/K+/Phos/Mg/Ca: 138/3.4/2.8/2.1/-- (07/17 29) Bun/Creat/Cl/CO2/Glucose: 27/0.80/107/20/130 (07/17 29) Lab Results Component Value Date INR 1.1 07/16/2022 INR 1.1 07/14/2022 INR 1.1 07/13/2022 PT 14.3 (H) 07/16/2022 PT 14.0 07/14/2022 PT 13.8 07/13/2022 Intake/Output Summary (Last 24 hours) at 07/17/2022 1014 Last data filed at 07/17/2022 1000 Gross per 24 hour Intake 3193.23 ml Output 1145 ml Net 2048.23 ml Imaging: IVH L>R lateral vents and 3rd and 4th dexmedeTOMIDine (PRECEDEX) IV infusion Stopped (07/17/22 0834) niCARdipine (CARDENE) Infusion 7.5 mg/hr (07/17/22 0930) Atorvastatin 80 mg Oral QHS Ipratropium-albuterol 3 mL Nebulization Q6HNS Lisinopril 10 mg Oral Daily nicotine 1 patch Transdermal Daily And VERIFY LINKED PATCH PLACEMENT Other Q12H QUEtiapine 25 mg Oral Q12H senna 8.6 mg Oral Daily Tamsulosin HCl 0.4 mg Oral Daily A/P 67 y.o. male hx smoking p/w N/V with diffuse IVH L>R\ S/p dca 07/14 w sharron mcdermott - DALLASD watch - CTh today for ventricular size surveillance - INR < 1.5, Platelets > 100, SBP <140 - hold all antiplatelet agents and anticoagulation - MRI brain with and without contrast when able - will revascularize on elective basis after clinic follow up - NCq1 - will follow * Razia Andrade APRN-[employer] MUSICIAN - 07/17/2022 7:11 AM EST NEUROCRITICAL CARE DAILY NOTE HOSPITAL VISIT DEMOGRAPHICS Patient: [facility] Code status: Full Code Admission date: 07/14/2022 3:12 AM Hospital days: LOS: 3 days HISTORY OF PRESENT ILLNESS [facility] is a 67 y.o. male with a past history of tobacco-use (0.5 PPD) and marijuana-use. The patient presented to OSH with acute onset severe headache, N&V, LUE drift, and AMS. LKW 07/14 1200. CTH demonstrated hemorrhage in bilateral lateral ventricles L>R. Patient transferred to [facility] for further management. Upon arrival to [facility], he was on a cardene gtt for SBP <140. CTH demonstrated stable-appearing IVHof the bilateral lateral ventricles and basal cistern w/o evidence of hydrocephalus. 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 INTERVAL HISTORY SINCE ADMISSION 07/14/2022: admitted to [facility] 07/15: precedex/seroquel for agitation. Start lisinopril. 07/16 increased seroquel, cth 07/16: Increase lisinopril, CTH, SBP changed to < 160 PHYSICAL EXAM GENERAL: Alert, no acute distress. Eating breakfast, sitter at bedside HEENT: normocephalic, no scalp wounds nor lesions, dentures intact CARDIO: +S1S2, RRR, no murmurs, no edema. NSR on tele PULM: diminished to auscultation in bases bilaterally, no expiratory wheeze. Respirations unlabored. Tolerating RA ABDOMINAL: flat, soft, nontender, nondistended, active bowel sounds EXTREMITIES: no wounds or lesions VASCULAR: 2+ distal pulses, capillary refill <3 seconds NEURO: Mental status: alert; oriented to person, place, when asked month initially unable to answer, stated [place] coming and when prompted was able to state Dec, reoriented to year, and reason for admission Speech/language: object naming intact; repetition intact Cranial nerves: CN II: Visual ponce intact to confrontation. 2mm PERRL. video and sound recorder III, IV and : EOMI. No nystagmus. CN V: Facial sensation intact to light touch. CN VII: Facial strength normal with symmetric movement. CN VIII: Hearing is grossly intact. CN IX and X: Soft palate elevates symmetrically in the midline CN XI: Shoulder shrug and sternocleidomastoid strength 5/5 bilaterally CN XII: Tongue is midline with normal movement; no fasciculations Motor: Normal bulk and tone. No UE drift. 5/5 strength x4 Sensation: Extremity sensation intact throughout. ASSESSMENT AND PLAN Neuro: Bilateral Lateral Ventricular Hemorrhage Bilateral ICA Occlusion with Reconsitution Concern for Mcdermott Mcdermott Headache Acute emcephalopathy likely d/t to ivh Acute hydrocephalus - IVH Management: - Monitor neurostatus with neurochecks Q2H and pupilometer Q2H - Prevent further expansion with goal SBP <160 (see cards) - 07/14 NSGY consult: possible EVD placement if hydrocephalus - 07/14 DCA: bilateral ICA occlusion with collateral flow from ECA's and posterior circulation - Plans to revascularize once recovered from IVH - Daily NIHSS: NIH Stroke Scale: NIH Level of Conciousness (Provider): 0 NIH LOC Questions (Provider): 1 NIH LOC Commands (Provider): 0 NIH Best Gaze (Provider): 0 NIH Visual (Provider): 0 NIH Facial Palsy (Provider): 0 NIH Left Arm Motor (Provider): 0 NIH Right Arm Motor (Provider): 0 NIH Left Leg Motor (Provider): 0 NIH Right Leg Motor (Provider): 0 NIH Limb Ataxia (Provider): 0 NIH Sensory (Provider): 0 NIH Best Language (Provider): 0 NIH Dysarthria (Provider): 0 NIH Extinction and Inattention (Provider): 0 NIH Total Score (Provider): 1 - Imaging: - 07/13 CTA H/N: occlusion of bilateral internal carotid arteries; 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 No evidence of hydrocephalus. - 07/14 CTH (0630, 6h stability): stable -07/16 CTH stable, will follow clinical exam amd repeat prn ,emtal status changes -07/16 CTH obtained in pm d/t acute MS change-increase in hydrocephalus -07/17 CTH - MRI B w/wo: ordered-pending - Concern for mcdermott-mcdermott - 07/14 send: - MARQUEZ: negative - CRP: 3.96 -->10.62->27- will no longer follow - ESR: 8 - RF: <10 - TSH/FT4 reflex: 0.723 - Cytotoxic Cerebral Edema Management: - Goal Na 135 - 145; monitor Na daily Recent Labs 07/15/22 0007 07/16/22 0009 07/17/22 0029 SODIUM 139 141 138 OSMOLALITY 295 299 295 CHLORIDE 108 111* 107 - Hemorrhage presumably 2/2 unknown (HTN? Atherosclerotic?) etiology; evaluation for cause and source: - Complete TTE (see cards) - Obtain LDL level and statin therapy if indicated (131) - Obtain HA1C level (5.7) - Defer antiplatelet therapy and therapeutic anticoagulation - Consider urine drug screen on admission if no stroke risk factors: cotinine, THC - Consider hypercoagulability panel 24H-post tPA if no stroke risk factors - Initiate VTE prophylaxis after bleed stability established (see heme) - Pain/Sedation management - Tylenol 650mg Q4H PRN - precedex-wean to off - seroquel 12.5 mg [id number] increased to 25 ,g, will follow qtc-07/17 464 Psych: No Current Issues Pulm: Emphysema Tobacco-Use Marijuana-Use O2 Sat (%): 100 % (07/17 0600) O2 Device: room air (07/17 0400) - Goal SpO2 >92%; wean FiO2 as tolerated - [id number], encourage pulmonary toileting - PRN Duonebs - nicotine patch Cards: HLD Acute htn uncontrolled Temp: [97.9 F (36.6 C)-99.6 F (37.6 C)] 98.3 F (36.8 C) Pulse (Heart Rate): [49-95] 67 Resp Rate: [16-40] 23 BP: (104-168)/(55-81) 114/58 O2 Sat (%): [96 %-100 %] 100 % - Goal SBP <160, MAP >65 - Home antihypertensives: none - 07/17 lisinopril increased to 10 mg daily, will go up slowly on scheduled as may be compensatory to hydrocephalus - cardene gtt-titrating to off - PRN labetalol and hydralazine - TTE: pending - 07/13 troponin: 3 - 07/14 ECG: NSR, qtc 471 - 07/14 LDL 131, began Atorvastatin 80 mg Recent Labs 07/13/22 2339 CHOLESTEROL 195 TRIG 63 HDL 51 LDL 131 Renal/: Hypocalcemia Hypokalemia Traumatic [place] placement BPH Acute urinary Retention - Fluid Balance: - Goal: euvolemia Intake/Output Summary (Last 24 hours) at 07/17/2022 0711 Last data filed at 07/17/2022 0659 Gross per 24 hour Intake 3366.13 ml Output 1095 ml Net 2271.13 ml - BPH/traumatic [place]ledo placement: - Start flomax - [place]led[place] placed per urology, appreciate recs: - Recommend keeping catheter in place for 72h (at least until 07/17 AM) prior to a trial of void Will consider dc on 07/18 - This was a complex catheter placement, the catheter is NOT to be removed prior to the above date w/o first discussing w/ the Urology consults team - Maintenance: HW - Daily Chem 10; electrolytes replaced per NCCU protocol Recent Labs 07/16/22 0009 07/17/22 0029 SODIUM 141 138 POTASSIUM 4.3 3.4* CHLORIDE 111* 107 CO2 24 20* BUN 20 27* CREATSERUM 0.56* 0.80 MAGNESIUM 2.0 2.1 PHOSPHORUS 3.0 2.8 ICA 4.72 4.53* GI/Nutrition: No Current Issues No results for input(s): ALBUMIN, BILIDIRECT, BILITOTAL, ALKPHOS, ALT, AST, TP, AMYLASE, LIPASE in the last 72 hours. - DIET REGULAR - Sherry Swallow Screening Result: passed=cleared for oral intake - Consult nutrition for malnutrition screening - There is no height or weight on file to calculate BMI. - 07/13 LFT: WNL - Bowel regimen: - Last Bowel Movement: 07/16/22 - Senna, prn miralax Endo: Risk for Stress-Induced Hyperglycemia (resolved) - Goal blood glucose 140-180 - monitor for need for SSI - 07/13 hgb a1c: 5.7 Recent Labs 07/14/22 1223 07/15/22 0007 07/16/22 0009 07/17/22 0029 GLUCOSE 118* 110* 116* 130* ID: Acute Leukocytosis 2/2 acute stress/IVH Recent Labs 07/16/22 0009 07/17/22 0029 WBC 9.79 11.75* - Temp (24hrs), Av.6 F (37 C), Min:97.9 F (36.6 C), Max:99.6 F (37.6 C) - PRN Tylenol for T>100.4F -WBC trending up but temp okay, will cont to trend and consider repeat UA if upward trend continues - Most recent and positive cultures: Date Collected Source Result Date Finalized 07/14 UA negative 07/14 MRSA swab negative - Antiinfectives: Start Date Antiinfective Coverage Course Length Stop Date 07/14 Ancef Urethral trauma x1 dose 07/14 Heme/Onc: No Current Issues Recent Labs 07/16/22 0009 07/16/22 19207/17/22 0029 WBC 9.79 -- 11.75* RBC 4.09* -- 4.18* HGB 12.7* -- 12.9* HCT 37.3* -- 37.3* PLATELET 216 -- 237 PT -- 14.3* -- PTT -- 33.2 -- INR -- 1.1 -- - Goal plt >100, INR <1.4, Hgb >7 Musc: No Current Issues - PT/OT consulted and following - Current Activity Order: MURRAY Social/Dispo: - Code status: Full Code - Primary Emergency Contact: Rajiv Skinner - 07/16: pt's updated at bedside. Made aware of potential need for EVD if pt exam worsens. She's in agreement with this plan if needed. - Discharge planning per PCRM/SW. - ICU diary updated: 07/17 ICU Checklist: [ ] CAM-ICU [ ] ICU diary update 07/16 [x ] DVT ppx; [x ] SCDs; [ ] Lovenox possible 07/17 per NS, [ ] heparin [ ] Stress ulcer prophylaxis: none - Lines/Tubes: [place]: CVC: [place]: inserted 07/14, (indication: BPH,urinary retention-see above) Rectal tube: Enteral access: Patient seen and plan of care discussed with NCCU Attending, Dr. Bria Andrade, [employer] TEACHER-[employer] Service pager: [phone] Service [place] #: [phone] (Beds [id number] and beds), [place] #: [id number] (Beds [phone] and [facility] beds) 07/17/22 7:11 AM * Jimbo Ram MD - 07/16/2022 10:41 PM EST NSG Update Note Called to bedside after CT head showing increased hydrocephalus and reported worsened exam PE: Wakes up easily Eyes to voice PERRL EOMI FS Says name Otherwise not oriented FC x 4 briskly Plan: -- hold on evd for now -- repeat coags -- hold dvt ppx -- ct head in am -- neuro checks * Cathleen Manuel OT - 07/16/2022 3:08 PM EST Occupational Therapy Attempt Note 07/16/2022 OT Therapy Completed: Attempted Attempted Reason: Patient is not medically optimized to tolerate therapy program. Will re-attempt as able/appropriate. Cathleen Manuel OT Time In: 900 Time Out: 900 Total Visit Time: 0 minutes Total Treatment Time (skilled, billable minutes): 0 minutes * Samir Marquez MD - 07/16/2022 11:06 AM EST The patient was seen and examined on 07/16/2022. The plan was formulated on the same day. Please refer to the UDAY note for additional details. Agitation and confusion overnight Ct head is stable. Exam: Sleepy, wakes up to stimulation Following commands. Plan: Neurological: IVH Acute encephalopathy Nicardipine drip SBP < 140 Normonatremia DCA with mcdermott mcdermott precedex drip for acute encephalopathy Seroquel as needed. Respiratory: RA. Cardiology: Nicardipine drip Renal: Traumatic [place]o insertion. [place] placed by Urology Only can be removed by Urology. Fluid goal @ 75 mls/hr. The patient is critically ill due to intraventricular hemorrhage and acute encephalopathy requiringclose neurological and hemodynamic monitoring and intravenous antihypertensive medications and intravenous sedative management. Critical care time spent is 32 minutes * MIGUEL A Martínez - 07/16/2022 8:27 AM EST Acute Care Speech-Language Pathology Attempt Note 07/16/2022 Attempted Procedure: Eidrss-Qgvrlybu-Iyneazbrl Evaluation Attempted Reason: Patient is not medically optimized to tolerate therapy program (EVD watch). Will re-attempt as able/appropriate. MIGUEL A Martínez Time In: 826 Time Out: 826 Total Visit Time: 0 minutes Total Treatment Time (skilled, billable minutes): 0 minutes * Héctor Araya MD - 07/16/2022 7:27 AM EST NSGY daily prog note S: No acute events, no complaints PE: Temp: [96.5 F (35.8 C)-98.4 F (36.9 C)] 97.9 F (36.6 C) Pulse (Heart Rate): [52-123] 59 Resp Rate: [15-38] 20 BP: (98-159)/(56-77) 121/65 O2 Sat (%): [96 %-100 %] 99 % Weight: [79.3 kg (174 lb 12.8 oz)] 79.3 kg (174 lb 12.8 oz) NAD A&Ox1, does not know location or date PERRL EOMI FS TM 11/27 RUE; 11/27 LUE 11/27 RLE; 11/27 LLE SILT Groin c/d/i WBC/Hgb/Hct/Plts: 9.79/12.7/37.3/216 (07/16 9) Na/K+/Phos/Mg/Ca: 141/4.3/3.0/2.0/-- (07/16 9) Bun/Creat/Cl/CO2/Glucose: 20/0.56/111/24/116 (12/22 0009) Lab Results Component Value Date INR 1.1 07/14/2022 INR 1.1 07/13/2022 PT 14.0 07/14/2022 PT 13.8 07/13/2022 Intake/Output Summary (Last 24 hours) at 07/16/2022 0727 Last data filed at 07/16/2022 0601 Gross per 24 hour Intake 1951.85 ml Output 1760 ml Net 191.85 ml Imaging: IVH L>R lateral vents and 3rd and 4th dexmedeTOMIDine (PRECEDEX) IV infusion 0.7 mcg/kg/hr (07/16/22 0500) Sodium chloride 0.9% w/potassium cl Stopped (07/16/22 0215) Atorvastatin 80 mg Oral QHS HYDROmorphone Lisinopril 5 mg Oral Daily nicotine 1 patch Transdermal Daily And VERIFY LINKED PATCH PLACEMENT Other Q12H QUEtiapine 25 mg Oral Q12H senna 8.6 mg Oral Daily Tamsulosin HCl 0.4 mg Oral Daily A/P 67 y.o. male hx smoking p/w N/V with diffuse IVH L>R\ S/p dca 07/14 w sharron mcdermott - GLENN watch - CTh today for ventricular size surveillance - INR < 1.5, Platelets > 100, SBP <140 - hold all antiplatelet agents and anticoagulation - MRI brain with and without contrast when able - will revascularize on elective basis after clinic follow up - NCq1 * Razia Andrade APRN-[employer] - 07/16/2022 7:10 AM EST NEUROCRITICAL CARE DAILY NOTE HOSPITAL VISIT DEMOGRAPHICS Patient: Love Skinner Code status: Full Code Admission date: 07/14/2022 3:12 AM Hospital days: LOS: 2 days HISTORY OF PRESENT ILLNESS Love Skinner is a 67 y.o. male with a past history of tobacco-use (0.5 PPD) and marijuana-use. The patient presented to OSH with acute onset severe headache, N&V, LUE drift, and AMS. LKW 07/14 1200. CTH demonstrated hemorrhage in bilateral lateral ventricles L>R. Patient transferred to [facility] for further management. Upon arrival to [facility], he was on a cardene gtt for SBP <140. CTH demonstrated stable-appearing IVHof the bilateral lateral ventricles and basal cistern w/o evidence of hydrocephalus. 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 INTERVAL HISTORY SINCE ADMISSION 07/14/2022: admitted to NCCU 07/15: precedex/seroquel for agitation. Start lisinopril. 07/16 increased seroquel, cth PHYSICAL EXAM GENERAL: Alert, no acute distress. Eating breakfast, sitter at bedside HEENT: normocephalic, no scalp wounds nor lesions, dentures intact CARDIO: +S1S2, RRR, no murmurs, no edema. NSR on tele PULM: diminished to auscultation in bases bilaterally, with expiratory wheeze on R equal chest rise. Respirations unlabored. Tolerating RA ABDOMINAL: flat, soft, nontender, nondistended, active bowel sounds EXTREMITIES: no wounds or lesions VASCULAR: 2+ distal pulses, capillary refill <3 seconds NEURO: Mental status: alert; oriented to person , oriented to place w/ options, reoriented to month, year,and reason for admission Speech/language: object naming intact; repetition intact Cranial nerves: CN II: Visual ponce intact to confrontation. 2mm PERRL. video and sound recorder III, IV and : EOMI. No nystagmus. CN V: Facial sensation intact to light touch. CN VII: Facial strength normal with symmetric movement. CN VIII: Hearing is grossly intact. CN IX and X: Soft palate elevates symmetrically in the midline CN XI: Shoulder shrug and sternocleidomastoid strength 5/5 bilaterally CN XII: Tongue is midline with normal movement; no fasciculations Motor: Normal bulk and tone. No UE drift. 5/5 strength x4 Sensation: Extremity sensation intact throughout. ASSESSMENT AND PLAN Neuro: Bilateral Lateral Ventricular Hemorrhage Bilateral ICA Occlusion with Reconsitution Concern for Mcdermott Mcdermott Headache Acute emcephalopathy likely dur to ivh - IVH Management: - Monitor neurostatus with neurochecks Q2H and pupilometer Q2H - Prevent further expansion with goal SBP <140 (see cards) - 07/14 NSGY consult: possible EVD placement if hydrocephalus - 07/14 DCA: bilateral ICA occlusion with collateral flow from ECA's and posterior circulation - Plans to revascularize once recovered from IVH - Daily NIHSS: NIH Stroke Scale: NIH Level of Conciousness (Provider): 0 NIH LOC Questions (Provider): 2 NIH LOC Commands (Provider): 0 NIH Best Gaze (Provider): 0 NIH Visual (Provider): 0 NIH Facial Palsy (Provider): 0 NIH Left Arm Motor (Provider): 0 NIH Right Arm Motor (Provider): 0 NIH Left Leg Motor (Provider): 0 NIH Right Leg Motor (Provider): 0 NIH Limb Ataxia (Provider): 0 NIH Sensory (Provider): 0 NIH Best Language (Provider): 0 NIH Dysarthria (Provider): 0 NIH Extinction and Inattention (Provider): 0 NIH Total Score (Provider): 2 - Imaging: - 07/13 CTA H/N: occlusion of bilateral internal carotid arteries; 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 No evidence of hydrocephalus. - 07/14 CTH (0630, 6h stability): stable - 07/14 CTH post-DCA: stable, early hydrocephalus - 07/15 CTH: stable ICH, stable mild hydrocephalus -07/16 CTH stable, will follow clinical exam amd repeat prn ,emtal status changes - MRI B w/wo: pending - Concern for mcdermott-mcdermott - 07/14 send: - MARQUEZ: negative - CRP: 3.96 -->10.62->27- will no longer follow - ESR: 8 - RF: <10 - TSH/FT4 reflex: 0.723 - Cytotoxic Cerebral Edema Management: - Goal Na 135 - 145; monitor Na daily Recent Labs 07/13/22 2339 07/14/22 0450 07/15/22 0007 07/16/22 0009 SODIUM 136 138 139 141 OSMOLALITY 288 292 295 299 CHLORIDE 104 105 108 111* - Hemorrhage presumably 2/2 unknown (HTN? Atherosclerotic?) etiology; evaluation for cause and source: - Complete TTE (see cards) - Obtain LDL level and statin therapy if indicated (131) - Obtain HA1C level (5.7) - Defer antiplatelet therapy and therapeutic anticoagulation - Consider urine drug screen on admission if no stroke risk factors: cotinine, THC - Consider hypercoagulability panel 24H-post tPA if no stroke risk factors - Initiate VTE prophylaxis after bleed stability established (see heme) - Pain/Sedation management - Tylenol 650mg Q4H PRN - precedex-wean to off - seroquel 12.5 mg c13a-80/22 increased to 25 ,g, will follow qtc Psych: No Current Issues Pulm: Emphysema Tobacco-Use Marijuana-Use O2 Sat (%): 100 % (07/16 0500) O2 Device: room air (07/16 0400) - Goal SpO2 >92%; wean FiO2 as tolerated - [id number], encourage pulmonary toileting - PRN Duonebs - nicotine patch Cards: HLD Acute htn uncontrolled (resolved) Temp: [96.5 F (35.8 C)-98.4 F (36.9 C)] 96.8 F (36 C) Pulse (Heart Rate): [52-123] 54 Resp Rate: [15-38] 15 BP: (98-159)/(56-77) 134/63 O2 Sat (%): [96 %-100 %] 100 % Weight: [79.3 kg (174 lb 12.8 oz)] 79.3 kg (174 lb 12.8 oz) - Goal SBP <140, MAP >65 - Home antihypertensives: none - cont lisinopril 5 mg daily - cardene gtt-off/dc'd - PRN labetalol and hydralazine - TTE: pending - 07/13 troponin: 3 - 07/14 ECG: NSR, qtc 471 - 07/14 LDL 131, began Atorvastatin 80 mg Recent Labs 07/13/22 2339 CHOLESTEROL 195 TRIG 63 HDL 51 LDL 131 Renal/: Hypocalcemia Traumatic [place] placement BPH Acute urinary Retention - Fluid Balance: - Goal: euvolemia Intake/Output Summary (Last 24 hours) at 07/16/2022 0710 Last data filed at 07/16/2022 0601 Gross per 24 hour Intake 1951.85 ml Output 1820 ml Net 131.85 ml - BPH/traumatic [place]led[place] placement: - Start flomax - [place] placed per urology, appreciate recs: - Recommend keeping catheter in place for 72h (at least until 12/23 AM) prior to a trial of void - This was a complex catheter placement, the catheter is NOT to be removed prior to the above date w/o first discussing w/ the Urology consults team - Maintenance: 0.9NS w/ KCl @ 75 mL/hr, Total fluid goal 75 ml/h-HW - Daily Chem 10; electrolytes replaced per NCCU protocol Recent Labs 07/15/22 0007 07/16/22 0009 SODIUM 139 141 POTASSIUM 4.0 4.3 CHLORIDE 108 111* CO2 23 24 BUN 20 CREATSERUM 0.76 0.56* MAGNESIUM 2.3 2.0 PHOSPHORUS 2.3 3.0 ICA 4.47* 4.72 GI/Nutrition: No Current Issues Recent Labs 07/13/222338 ALBUMIN 4.2 BILIDIRECT 0.2 BILITOTAL 1.5* ALKPHOS 57 ALT 16 AST 18 TP 7.0 - DIET REGULAR - Sherry Swallow Screening Result: passed=cleared for oral intake - Consult nutrition for malnutrition screening - There is no height or weight on file to calculate BMI. - 07/13 LFT: WNL - Bowel regimen: - Last Bowel Movement: (CREDIT NEGOTIATOR) - Senna, prn miralax Endo: Risk for Stress-Induced Hyperglycemia - Goal blood glucose 140-180 - monitor for need for SSI - 07/13 hgb a1c: 5.7 Recent Labs 07/13/22 2339 07/14/22 0235 07/14/22 0450 07/14/22 1223 07/15/22 0007 07/16/22 0009 GLUCOSE 137* < > 135* 118* 110* 116* HGBA1C 5.7* -- -- -- -- -- < > = values in this interval not displayed. ID: Acute Leukocytosis 2/2 acute stress/IVH (resolved) Recent Labs 07/15/22 0007 07/16/22 0009 WBC 13.44* 9.79 - Temp (24hrs), Av.5 F (36.4 C), Min:96.5 F (35.8 C), Max:98.4 F (36.9 C) - PRN Tylenol for T>100.4F - Most recent and positive cultures: Date Collected Source Result Date Finalized 07/14 UA negative 07/14 MRSA swab negative - Antiinfectives: Start Date Antiinfective Coverage Course Length Stop Date 07/14 Ancef Urethral trauma x1 dose 07/14 Heme/Onc: No Current Issues Recent Labs 07/13/22 2339 07/14/22 0450 07/15/22 0007 07/16/22 0009 WBC 14.04* 13.06* 13.44* 9.79 RBC 4.76 4.42 4.23* 4.09* HGB 14.6 13.6 13.0* 12.7* HCT 43.0 40.2 38.4* 37.3* PLATELET 260 242 227 216 PT 13.8 14.0 -- -- PTT 34.3 33.6 -- -- INR 1.1 1.1 -- -- - Goal plt >100, INR <1.4, Hgb >7 Musc: No Current Issues - PT/OT consulted and following - Current Activity Order: AAT Social/Dispo: - Code status: Full Code - Primary Emergency Contact: Rajiv Skinner - 07/15: pt's updated via phone - Discharge planning per PCRM/SW. - ICU diary updated: 07/15 ICU Checklist: [ ] CAM-ICU [ ] ICU diary update 07/16 [x ] DVT ppx; [x ] SCDs; [ ] Lovenox possible 07/17 per NS, [ ] heparin [ ] Stress ulcer prophylaxis: none - Lines/Tubes: [place]: CVC: [place]: inserted 07/14, (indication: BPH,urinary retention-see above) Rectal tube: Enteral access: Patient seen and plan of care discussed with NCCU Attending, Dr. Marquez. RADHA Mora Service pager: [phone] Service [place] #: [phone] (Beds [phone] and beds), [place] #: [phone] (Beds [phone] [phone] and [facility]) 07/16/22 7:10 AM * Dory Deleon MICROBIOLOGICAL LAB TECHNICIAN - 07/15/2022 2:21 PM EST Acute Care Speech-Language Pathology Attempt Note 07/15/2022 Attempted Procedure: Fekdpk-Ubxtgbyw-Bcjenefjz Evaluation Attempted Reason: Patient is not medically optimized to tolerate therapy program. Will re-attempt as able/appropriate. MIGUEL A Martínez Time In: 1421 Time Out: 1421 Total Visit Time: 0 minutes Total Treatment Time (skilled, billable minutes): 0 minutes * Lisa Balbuena PT - 07/15/2022 1:56 PM EST Physical Therapy Attempt Note 07/15/2022 PT Therapy Completed: Attempted Attempted Reason: Patient is not medically optimized to tolerate therapy program, per RN. Poor command following and agitation. Lisa Balbuena PT Time In: 1355 Time Out: 1355 Total Visit Time: 0 minutes Total Treatment Time (skilled, billable minutes): 0 minutes * Cathleen Manuel OT - 07/15/2022 1:56 PM EST Occupational Therapy Attempt Note 07/15/2022 OT Therapy Completed: Attempted Attempted Reason: Patient is not medically optimized to tolerate therapy program. Per conversation with RN, pt with RASS of 3/increased agitation and not able to safely participate at this time. Willre-attempt as able/appropriate. Cathleen Manuel OT Time In: 1355 Time Out: 1355 Total Visit Time: 0 minutes Total Treatment Time (skilled, billable minutes): 0 minutes * Lilli Quinones - 07/15/2022 11:29 AM EST Discharge Planning Patient Assessment Admission Assessment Patient Assessment Completed: Initial Anticipated discharge disposition: Inpatient Rehab Facility (vs Home) Reason for Admission: interventricular hemorrhage. suspected Mcdermott mcdermott Is the patient able to participate in the assessment?: Yes Information source: Patient Information Source Name/Contact: Love Skinner Demographics Verified and Updated: Yes Has the patient been admitted to any hospital in the last 30 days?: Transferred From Outside Hospital Advanced Care Planning Has the patient completed Advance Directives?: Not Completed Referral to Social Work for Advance Care Planning? : Patient Declines Legal Next of Kin Does the patient have a Guardian?: No Spouse: Yes Referral to Social Work to Identify Legal Next of Kin?: No Reviewed and Updated in Demographics? : Yes Outpatient Providers Does patient have a primary care physician? : No Is the patient agreeable to a referral or information on a primary care physician?: (pt does not have ins, Financial contacted to screen for SBO and hcap for ability to follow up with [facility] providers.) Does the patient follow any specialists?: No No care food service team member to display Environment/Caregivers Is the patient from a facility or nursing home?: No Patient lives with: Spouse or Partner Living Environment: House How many steps does the patient have to navigate to enter or inside the home? : 0STE, bed and bath 2nd fl Does the patient have a first floor set-up with bed and bathroom?: No Patient Caregiving Responsibilities: Self, Other (livestock) Patient-identified caregiver/support network: Family Who does the patient identify as a teachable caregiver(s)?: Other Family Services Does the patient use a home health or hospice agency?: No Current with dialysis?: No Does the patient use any community programs or services?: No Does patient use DME? : none Does the patient use oxygen?: No Does patient use medical supplies? : none Anticipated Changes Related to Illness/Injury? : Unknown at this time Initial ADLs Prior to Arrival What is the patient's baseline physical functioning prior to this acute illness?: independent What is the patient's baseline cognitive functioning prior to this acute illness?: independent Is the patient's baseline functioning changed by this acute illness? : Yes Changes observed : Physical, Cognitive Concerns with patient being able to care for themselves at home? : Unable to assess (will require 24 hr supervision - may need rehab services) Are there therapy or specialists consults?: Yes Select consult type: PT, OT, MICROBIOLOGICAL LAB TECHNICIAN Does the patient's home require any home modifications for discharge? : Unknown at this time CM to recommend therapy or other consults? : No Medication Management Does the patient have prescription insurance coverage? : No Is the patient on Anticoagulation? : No No Pharmacies Listed Cnc Milling Machinist Does the patient or in home sales representative express financial concerns? 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) Coping/Stress Concerns about patient s coping and stress?: No Concerns about patient s caregiver s coping and stress?: No Values and Beliefs Cultural or worship practices that may impact discharge planning and/or medical care?: No Initial Discharge Planning Anticipated discharge disposition: Inpatient Rehab Facility (vs Home) Anticipated DME: unknown at this time Anticipated Services at Discharge: Occupational Therapy, Physical Therapy Patient Assessment Completed: Initial Risk of Readmission: 4.2 Category Reference: High:16-100 Mod-High:10-16 Mod-Low: 5-10 Low: 0-5 Expected Discharge Date: Readmission Summary and Discharge Planning Narrative Family reports ability to preovide 24 hr care. has spoken with [facility] financial, pt is being screened for HCAP and SBO is over income for medicaid. is also starting the process of medicare application. Infromation for free clinics was placed in AVS Case Management Plan -Possible need for post acute services., Will monitor for team recommendations of level of care andprovide list of potential providers as appropriate. - Pt will be provided instructions on follow-up appointments, - Pt will be provided instructions/ information on the warning signs and symptoms which may indicate the need to seek medical attention Lilli BROTHERS/L, CCM, [facility] Production Underwriter * Samir Marquez MD - 07/15/2022 10:58 AM EST The patient was seen and examined on 07/15/2022. The plan was formulated on the same day. Please refer to the UDAY note for additional details. Agitation and confusion overnight Ct head is stable. Plan: Neurological: IVH Acute encephalopathy Nicardipine drip SBP < 140 Normonatremia DCA with mcdermott mcdermott precedex drip. Respiratory: RA. Cardiology: Nicardipine drip Renal: Traumatic [place] insertion. [place] placed by Urology Only can be removed by Urology. Fluid goal @ 75 mls/hr. The patient is critically ill due to intraventricular hemorrhage and acute encephalopathy requiringclose neurological and hemodynamic monitoring and intravenous antihypertensive medications and intravenous sedative management. Critical care time spent is 32 minutes * Annie Hutchins APRN-CHURCH MUSICIAN - 07/15/2022 8:58 AM EST Neurovascular Stroke Service Intracerebral Hemorrhage Note IDENTIFYING INFORMATION Love Skinner MR# [id number] 07/15/2022 HISTORY OF PRESENT ILLNESS Love Skinner is a 67 y.o. male with PMH significant for tobacco use disorder who [facility] ED[facility] nausea, vomiting, and headache found to have interventricular hemorrhage. Symptoms started around 1200 on 07/13/2022 while he was working. He was taken to OSH where CTH demonstrated bilateral IVH L>R. He was transferred to [facility] for further work-up. He does not take any anticoagulants or antiplatelets. He arrived on cardene drip and SBP less than 140. NIH 3 on arrival for LUE weakness and confusion. INTERVAL HISTORY 07/14: DCA pending today to evaluate for suspected Mcdermott Mcdermott and IVH etiology 07/15: DCA completed, TTE and MRI brain pending PHYSICAL EXAM Gen: awake, alert, NAD HEENT: normocephalic, no scalp lesions or tenderness, PERRLA, EOMI Neck: trachea midline, no JVD CV: +S1S2, RRR, no m/r/g Lungs: LCTA bilaterally with equal chest rise Abd: soft, nontender, nondistended, +BS x4 quadrants Extrem: Warm and well perfused, no cyanosis, clubbing, edema, 2+ pulses bilaterally Neuro: Oriented x4, ARAGON x4, sensation intact and equal bilaterally CN II - All visual ponce intact CN II/III - PERRLA CN III/IV/ - EOMI CN V - Light touch to face intact in all 3 divisions CN VII - Facial movement intact and symmetrical bilaterally CN VIII - Hearing intact CN X - Cough present CN XI - muscular movement of shoulders and sternocleidomastoid muscles intact and equal bilaterally CN XII - midline protrusion of tongue MOTOR EXAMINATION: no drift noted. Finger to nose testing with LUE/RUE with ataxia. NIHSS Provider NIH Stroke Scale NIH Interval (Provider): daily NIH Level of Conciousness (Provider): 0 NIH LOC Questions (Provider): 0 NIH LOC Commands (Provider): 0 NIH Best Gaze (Provider): 0 NIH Visual (Provider): 0 NIH Facial Palsy (Provider): 0 NIH Left Arm Motor (Provider): 0 NIH Right Arm Motor (Provider): 0 NIH Left Leg Motor (Provider): 0 NIH Right Leg Motor (Provider): 0 NIH Limb Ataxia (Provider): 2 NIH Sensory (Provider): 0 NIH Best Language (Provider): 0 NIH Dysarthria (Provider): 0 NIH Extinction and Inattention (Provider): 0 NIH Total Score (Provider): 2 Intracerebral Hemorrhage Volume Intracerebral Hemorrhage Score Score 30 Day Mortality following ICH 0 0% Mortality 1 13% Mortality 2 26% Mortality 3 72% Mortality 4 97% Mortality 5 100% Mortality ASSESSMENT AND PLAN Neuro: IVH, ICH score 1 CTH on arrival: IVH L > R, stable from outside hospital CTA: no spot sign. 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 -Antiplatelet therapy is not indicated. -Anticoagulation therapy not indicated in hemorrhagic stroke -Patients LDL 131 and HgbA1c were checked and the patient will be discharged on atorvastatin 80 mg -Dysphagia screening ordered, and will be completed prior to patient receiving oral intake. -Stroke education booklet has been provided both written and verbal education to the patient and family regarding hemorrhagic strokes. We have reviewed the patient's personal modifiable risk factors as well as education on reducing these risk factors. -Patient is being assessed for Rehab by PT/OT/Speech and PM&R if indicated. Annie Hutchins APRN-ZACK 07/15/2022 8:58 AM VITAL SIGNS Temp: [97.7 F (36.5 C)-98.6 F (37 C)] 98 F (36.7 C) Pulse (Heart Rate): [67-101] 85 Resp Rate: [16-49] 21 BP: (107-153)/(53-70) 130/62 O2 Sat (%): [93 %-98 %] 97 % Weight: [73.8 kg (162 lb 11.2 oz)] 73.8 kg (162 lb 11.2 oz) IMAGING/DIAGNOSTIC STUDIES CT HEAD WITHOUT CONTRAST Final Result IMPRESSION: Stable examination as compared to earlier the same day. Stable intraventricular hemorrhage and ventricular size with mild dilatation of the temporal horns which may reflect mild/early hydrocephalus. CARDIOGRAM (Results Pending) FLUORO IMAGING FOR NEURO ENDOVASCULAR (Results Pending) CT HEAD WITHOUT CONTRAST (Results Pending) MEDICATIONS Atorvastatin 80 mg Oral QHS Lisinopril 5 mg Oral Daily nicotine 1 patch Transdermal Daily And VERIFY LINKED PATCH PLACEMENT Other Q12H senna 8.6 mg Oral Daily Tamsulosin HCl 0.4 mg Oral Daily * RADHA Salinas - 07/15/2022 7:44 AM EST NEUROCRITICAL CARE DAILY NOTE HOSPITAL VISIT DEMOGRAPHICS Patient: Love Skinner Code status: No Order Admission date: 07/14/2022 3:12 AM Hospital days: LOS: 1 day HISTORY OF PRESENT ILLNESS Love Skinner is a 67 y.o. male with a past history of tobacco-use (0.5 PPD) and marijuana-use. The patient presented to OSH with acute onset severe headache, N&V, LUE drift, and AMS. LKW 07/14 1200. CTH demonstrated hemorrhage in bilateral lateral ventricles L>R. Patient transferred to [facility] for further management. Upon arrival to [facility], he was on a cardene gtt for SBP <140. CTH demonstrated stable-appearing IVHof the bilateral lateral ventricles and basal cistern w/o evidence of hydrocephalus. 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 INTERVAL HISTORY SINCE ADMISSION 07/14/2022: admitted to [facility] 07/15: precedex/seroquel for agitation. Start lisinopril. PHYSICAL EXAM GENERAL: Alert, no acute distress. Agitated at times HEENT: normocephalic, no scalp wounds nor lesions, dentures intact CARDIO: +S1S2, RRR, no murmurs, no edema. NSR on tele PULM: diminished to auscultation bilaterally, equal chest rise. Respirations unlabored. Tolerating RA ABDOMINAL: flat, soft, nontender, nondistended, active bowel sounds EXTREMITIES: no wounds or lesions VASCULAR: 2+ distal pulses, capillary refill <3 seconds NEURO: Mental status: alert; oriented to person and president Speech/language: object naming intact; repetition intact Cranial nerves: CN II: Visual ponce intact to confrontation. 2mm PERRL. video and sound recorder III, IV and : EOMI. No nystagmus. CN V: Facial sensation intact to light touch. CN VII: Facial strength normal with symmetric movement. CN VIII: Hearing is grossly intact. CN IX and X: Soft palate elevates symmetrically in the midline CN XI: Shoulder shrug and sternocleidomastoid strength 5/5 bilaterally CN XII: Tongue is midline with normal movement; no fasciculations Motor: Normal bulk and tone. No UE drift. 5/5 strength x4 Sensation: Extremity sensation intact throughout. Coordination: No ataxia, dysmetria FTS ASSESSMENT AND PLAN Neuro: Bilateral Lateral Ventricular Hemorrhage Bilateral ICA Occlusion with Reconsitution Concern for Mcdermott Mcdermott Headache - IVH Management: - Monitor neurostatus with neurochecks Q2H and pupilometer Q2H - Prevent further expansion with goal SBP <140 (see cards) - 07/14 NSGY consult: possible EVD placement if hydrocephalus - 07/14 DCA: bilateral ICA occlusion with collateral flow from ECA's and posterior circulation - Plans to revascularize once recovered from IVH - Daily NIHSS: NIH Stroke Scale: NIH Level of Conciousness (Provider): 0 NIH LOC Questions (Provider): 2 NIH LOC Commands (Provider): 0 NIH Best Gaze (Provider): 0 NIH Visual (Provider): 0 NIH Facial Palsy (Provider): 0 NIH Left Arm Motor (Provider): 0 NIH Right Arm Motor (Provider): 0 NIH Left Leg Motor (Provider): 0 NIH Right Leg Motor (Provider): 0 NIH Limb Ataxia (Provider): 0 NIH Sensory (Provider): 0 NIH Best Language (Provider): 0 NIH Dysarthria (Provider): 0 NIH Extinction and Inattention (Provider): 0 NIH Total Score (Provider): 2 - Imaging: - 07/13 CTA H/N: occlusion of bilateral internal carotid arteries; 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 No evidence of hydrocephalus. - 07/14 CTH (0630, 6h stability): stable - 07/14 CTH post-DCA: stable, early hydrocephalus - 07/15 CTH: stable ICH, stable mild hydrocephalus - MRI B w/wo: pending - Concern for mcdermott-mcdermott - 07/14 send: - MARQUEZ: negative - CRP: 3.96 -->10.62 - ESR: 8 - RF: <10 - TSH/FT4 reflex: 0.723 - Cytotoxic Cerebral Edema Management: - Goal Na 135 - 145; monitor Na QHS Recent Labs 07/13/22 2339 07/14/22 0450 07/15/22 0007 SODIUM 136 138 139 OSMOLALITY 288 292 295 CHLORIDE 104 105 108 - Hemorrhage presumably 2/2 unknown (HTN? Atherosclerotic?) etiology; evaluation for cause and source: - Complete TTE (see cards) - Obtain LDL level and statin therapy if indicated (131) - Obtain HA1C level (5.7) - Defer antiplatelet therapy and therapeutic anticoagulation - Consider urine drug screen on admission if no stroke risk factors: cotinine, THC - Consider hypercoagulability panel 24H-post tPA if no stroke risk factors - Initiate VTE prophylaxis after bleed stability established (see heme) - Pain/Sedation management - Tylenol 650mg Q4H PRN - precedex - seroquel 12.5 mg q12h Psych: No Current Issues Pulm: Emphysema Tobacco-Use Marijuana-Use O2 Sat (%): 95 % (07/15 0600) O2 Device: room air (07/14 2000) - Goal SpO2 >92%; wean FiO2 as tolerated - [id number], encourage pulmonary toileting - PRN Duonebs - nicotine patch Cards: [facility] [place] Temp: [97.7 F (36.5 C)-98.6 F (37 C)] 98 F (36.7 C) Pulse (Heart Rate): [67-101] 70 Resp Rate: [16-49] 24 BP: (107-153)/(53-70) 115/57 O2 Sat (%): [92 %-98 %] 95 % Weight: [73.8 kg (162 lb 11.2 oz)] 73.8 kg (162 lb 11.2 oz) - Goal SBP <140, MAP >65 - Home antihypertensives: none - start lisinopril 5 mg daily - cardene gtt - PRN labetalol and hydralazine - TTE: pending - 07/13 troponin: 3 - 07/14 ECG: NSR, qtc 471 - 07/14 LDL 131, began Atorvastatin 80 mg Recent Labs 07/13/22 2339 CHOLESTEROL 195 TRIG 63 HDL 51 LDL 131 Renal/: Hypocalcemia Traumatic [place] placement BPH Acute urinary Retention - Fluid Balance: - Goal: euvolemia Intake/Output Summary (Last 24 hours) at 07/15/2022 0744 Last data filed at 07/15/2022 0725 Gross per 24 hour Intake 3007.99 ml Output 1870 ml Net 1137.99 ml - BPH/traumatic [place]ledo placement: - Start flomax - [place] placed per urology, appreciate recs: - Recommend keeping catheter in place for 72h (at least until 12 AM) prior to a trial of void - This was a complex catheter placement, the catheter is NOT to be removed prior to the above date w/o first discussing w/ the Urology consults team - Maintenance: 0.9NS w/ 20 KCl @ 75 mL/hr, Total fluid goal 75 ml/h - Daily Chem 10; electrolytes replaced per NCCU protocol Recent Labs 07/14/22 0450 07/15/22 0007 SODIUM 138 139 POTASSIUM 3.9 4.0 CHLORIDE 105 108 CO2 23 23 BUN 14 22 CREATSERUM 0.78 0.76 MAGNESIUM 1.9 2.3 PHOSPHORUS 2.8 2.3 ICA 4.49* 4.47* GI/Nutrition: No Current Issues Recent Labs 07/13/22 2339 ALBUMIN 4.2 BILIDIRECT 0.2 BILITOTAL 1.5* ALKPHOS 57 ALT 16 AST 18 TP 7.0 - DIET REGULAR - Zullinger Swallow Screening Result: passed=cleared for oral intake - Consult nutrition for malnutrition screening - There is no height or weight on file to calculate BMI. - 07/13 LFT: WNL - Bowel regimen: - Last Bowel Movement: (CREDIT NEGOTIATOR) - Senna, prn miralax Endo: Risk for Stress-Induced Hyperglycemia - Goal blood glucose 140-180 - monitor for need for SSI - 07/13 hgb a1c: 5.7 Recent Labs 07/13/22 2339 07/14/22 0235 07/14/22 0450 07/14/22 1223 07/15/22 0007 GLUCOSE 137* 125* 135* 118* 110* HGBA1C 5.7* -- -- -- -- ID: Acute Leukocytosis 2/2 acute stress/IVH Recent Labs 07/14/22 0450 07/15/22 0007 WBC 13.06* 13.44* - Temp (24hrs), Av.2 F (36.8 C), Min:97.7 F (36.5 C), Max:98.6 F (37 C) - PRN Tylenol for T>100.4F - Most recent and positive cultures: Date Collected Source Result Date Finalized 07/14 UA negative 07/14 MRSA swab negative - Antiinfectives: Start Date Antiinfective Coverage Course Length Stop Date 07/14 Ancef Urethral trauma x1 dose 07/14 Heme/Onc: No Current Issues Recent Labs 07/13/22 2339 07/14/22 0450 07/15/22 0007 WBC 14.04* 13.06* 13.44* RBC 4.76 4.42 4.23* HGB 14.6 13.6 13.0* HCT 43.0 40.2 38.4* PLATELET 260 242 227 PT 13.8 14.0 -- PTT 34.3 33.6 -- INR 1.1 1.1 -- - Goal plt >100, INR <1.4, Hgb >7 Musc: No Current Issues - PT/OT consulted and following - Current Activity Order: AAT Social/Dispo: - Code status: No Order - Primary Emergency Contact: Rajiv Skinner - 07/15: pt's updated via phone - Discharge planning per PCRM/SW. - ICU diary updated: 07/15 ICU Checklist: [ ] CAM-ICU [x ] DVT ppx; [x ] SCDs; [ ] Lovenox possible 07/16 per NS, [ ] heparin [ ] Stress ulcer prophylaxis: none - Lines/Tubes: [place]: CVC: [place]: inserted 07/14, (indication: BPH,urinary retention) Rectal tube: Enteral access: Patient seen and plan of care discussed with NCCU Attending, Dr. Marquez. RADHA Salinas Service pager: [phone] Service [place] #: [phone] (Beds [id number] and beds), [place] #: [phone] (Beds [phone] and [facility] beds) 07/15/22 7:44 AM * Charlene Syed PA-C - 07/15/2022 7:17 AM EST NEUROCRITICAL CARE HISTORY AND PHYSICAL HOSPITAL VISIT DEMOGRAPHICS Patient: Love Skinner Code status: No Order Admission date: 07/14/2022 3:12 AM Hospital days: LOS: 1 day CHIEF COMPLAINT IVH w/ concern for obstructive hydrocephalus HISTORY OF PRESENT ILLNESS Love Skinner is a 67 y.o. male with a past history of tobacco-use (0.5 PPD) and marijuana-use. The patient presented to OSH with acute onset severe headache, N&V, LUE drift, and AMS. LKW 07/13 1200. CTH demonstrated hemorrhage in bilateral lateral ventricles L>R. Patient transferred to [facility] for further management. Upon arrival to [facility], he was on a cardene gtt for SBP <140. CTH demonstrated stable-appearing IVHof the bilateral lateral ventricles and basal cistern w/o evidence of hydrocephalus. 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 INTERVAL HISTORY SINCE ADMISSION 07/14/2022: admitted to [facility], DCA, CTH, [place] placed by urology, start diet 07/15: precedex and seroquel for agitation, start lisinopril, sitter PHYSICAL EXAM GENERAL: Alert, agitated. Aware only to self. HEENT: normocephalic, no scalp wounds nor lesions, dentures intact CARDIO: +S1S2, RRR, no m/r/g, no edema PULM: speaks in full sentences. Room air. ABDOMINAL: flat soft, nontender, nondistended, active bowel sounds EXTREMITIES: no wounds or lesions VASCULAR: 2+ distal pulses NEURO: Alert only to self. EOMI intact. Follows commands. Hearing intact. Object naming intact. 5/5strength in bilateral and lower extremities. No UE drift. ASSESSMENT AND PLAN Neuro: Bilateral Lateral Ventricular Hemorrhage Bilateral ICA Occlusion with Reconsitution Concern for Mcdermott Mcdermott Headache - IVH Management: - Monitor neurostatus with neurochecks Q2H and pupilometer Q2H - Prevent further expansion with goal SBP <140 (see cards) - 07/14 NSGY consult: possible EVD placement if hydrocephalus -07/14 DCA: ICA occlusion bilaterally with developmental of collateral flow from ECA's and posterior circulation. Daily NIHSS: NIH Stroke Scale: NIH Level of Conciousness (Provider): 0 NIH LOC Questions (Provider): 2 NIH LOC Commands (Provider): 0 NIH Best Gaze (Provider): 0 NIH Visual (Provider): 0 NIH Facial Palsy (Provider): 0 NIH Left Arm Motor (Provider): 0 NIH Right Arm Motor (Provider): 0 NIH Left Leg Motor (Provider): 0 NIH Right Leg Motor (Provider): 0 NIH Limb Ataxia (Provider): 0 NIH Sensory (Provider): 0 NIH Best Language (Provider): 0 NIH Dysarthria (Provider): 0 NIH Extinction and Inattention (Provider): 0 NIH Total Score (Provider): 2 - Imaging: - 07/13 CTA H/N: occlusion of bilateral internal carotid arteries; 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 No evidence of hydrocephalus. - 07/14: 6H-stability CT H: stable -07/14 CT H post DCA: Stable. Mild hydrocephalus. -07/15: CT H: Stable, no midline shift or mass effect. Mild hydrocephalus - MRI B WWO: pending - Cytotoxic Cerebral Edema Management: - Goal Na 135 - 145; monitor Na QHS Recent Labs 07/13/22 2339 07/14/22 0450 07/15/22 0007 SODIUM 136 138 139 OSMOLALITY 288 292 295 CHLORIDE 104 105 108 - Hemorrhage presumably 2/2 unknown (HTN? Atherosclerotic?) etiology; evaluation for cause and source: - Complete TTE ordered - Obtain LDL level and statin therapy if indicated (see cards) - Obtain HA1C: 5.7% - Defer antiplatelet therapy and therapeutic anticoagulation - Consider urine drug screen on admission if no stroke risk factors - Consider hypercoagulability panel 24H-post tPA if no stroke risk factors - Initiate VTE prophylaxis after bleed stability established (see heme) Mcdermott Mcdermott Workup: -07/14: - MARQUEZ: negative - ESR 8 - CRP 10.62 - RF<10 -TSH: 0.723 -07/15: NSGY plan to revascularize bilateral carotids once IVH stable - Pain/Sedation management - Precedex gtt-- agitation 07/15 -Seroquel 12.5 mg Q12H- 07/15 - Dilaudid 0.5 mg x1 for agitation 07/15 -Tylenol 650mg Q4H PRN Psych: Agitation 07/15: Pt was started on precedex gtt,12.5 mg Q12H Seroquel Pulm: Emphysema Tobacco-Use Marijuana-Use O2 Sat (%): 95 % (07/15 0600) O2 Device: room air (07/14 2000) - Goal SpO2 >92%; wean FiO2 as tolerated - [id number], encourage pulmonary toileting - PRN Duonebs Cards: HLD Hypertension Temp: [97.7 F (36.5 C)-98.7 F (37.1 C)] 97.7 F (36.5 C) Pulse (Heart Rate): [67-101] 70 Resp Rate: [16-49] 24 BP: (107-153)/(53-70) 115/57 O2 Sat (%): [92 %-98 %] 95 % Weight: [73.8 kg (162 lb 11.2 oz)] 73.8 kg (162 lb 11.2 oz) - Goal SBP <140, MAP >65 - Home antihypertensives: none Current Regimen: -Nicardipine gtt-(POA from OSH) -Lisonpril 5 mg- 07/15 - PRN labetalol and hydralazine - TTE: pending - 07/13 troponin: 3 - 07/14 ECG: NSR -07/13: LDL: 131 - Statin Therapy: Indicated if LDL >70; began Atorvastatin 80 mg Recent Labs 07/13/22 2339 CHOLESTEROL 195 TRIG 63 HDL 51 LDL 131 Renal/: BPH Urinary Retention Traumatic [place] Placement w/ false lumen Hypocalcemia - Fluid Balance: - Goal: Fluid goal of 75 mL/hr Intake/Output Summary (Last 24 hours) at 07/15/2022 0717 Last data filed at 07/15/2022 0559 Gross per 24 hour Intake 3007.99 ml Output 2110 ml Net 897.99 ml BPH: - Start flomax Traumatic [place] Placement: -- [place]led[place] placed per urolog - Recommend keeping catheter in place for 72h (at least until 12 AM) prior to a trial of void, the catheter is NOT to be removed prior to the above date w/o first discussing w/ the Urology consults team. - Maintenance: 0.9NS w/ 20 KCl @ 0-75 mL/hr - Daily Chem 10; electrolytes replaced per NCCU protocol Recent Labs 07/14/22 0450 07/15/22 0007 SODIUM 138 139 POTASSIUM 3.9 4.0 CHLORIDE 105 108 CO2 23 23 BUN 14 22 CREATSERUM 0.78 0.76 MAGNESIUM 1.9 2.3 PHOSPHORUS 2.8 2.3 ICA 4.49* 4.47* GI/Nutrition: No Current Issues Recent Labs 07/13/22 2339 ALBUMIN 4.2 BILIDIRECT 0.2 BILITOTAL 1.5* ALKPHOS 57 ALT 16 AST 18 TP 7.0 - DIET REGULAR - Zullinger Swallow Screening Result: passed=cleared for oral intake - 07/14 Start diet. May discontinue fluids once advances diet. - There is no height or weight on file to calculate BMI. - Bowel regimen: - Last Bowel Movement: (CREDIT NEGOTIATOR) - Senna daily, miralax PRN Endo: Risk for Stress-Induced Hyperglycemia - Goal blood glucose 140-180. Monitor need for insulin. Recent Labs 07/13/22 2339 07/14/22 0235 07/14/22 0450 07/14/22 1223 07/15/22 0007 GLUCOSE 137* 125* 135* 118* 110* HGBA1C 5.7* -- -- -- -- Hemoglobin A1c: 5.7% ID: Acute Leukocytosis 2/2 acute stress/IVH Recent Labs 07/14/22 0450 07/15/22 0007 WBC 13.06* 13.44* - Temp (24hrs), Av.3 F (36.8 C), Min:97.7 F (36.5 C), Max:98.7 F (37.1 C) - PRN Tylenol for T>100.4F - Most recent and positive cultures: Date Collected Source Result Date Finalized 07/14 MRSA/MSSA Negative - Antiinfectives: Start Date Antiinfective Coverage Course Length Stop Date 07/14 Ancef Urethral false passage x1 07/14 Heme/Onc: Reactive Leukocytosis Recent Labs 07/13/22 2339 07/14/22 0450 07/15/22 0007 WBC 14.04* 13.06* 13.44* RBC 4.76 4.42 4.23* HGB 14.6 13.6 13.0* HCT 43.0 40.2 38.4* PLATELET 260 242 227 PT 13.8 14.0 -- PTT 34.3 33.6 -- INR 1.1 1.1 -- - Goal plt >100, INR <1.4, Hgb >7 07/15: Per NSGY, no DVT prophylaxis at this time. Likely tomorrow. Musc: No Current Issues - PT/OT consulted and following - Current Activity Order: AAT Social/Dispo: - Code status: No Order - Primary Emergency Contact: BrodyRajiv - 07/14: Last updated Family. - Discharge planning per PCRM/SW. ICU Checklist: [X ] CAM-ICU [x ] DVT ppx; [x ] SCDs; [ ] Lovenox, [ ] heparin-- Per NSGY, no DVT at this time. Recheck 07/16 [ ] Stress ulcer prophylaxis: - Lines/Tubes: [place]: CVC: [place]: inserted 07/14, (indication:BPH,urinary retention) Rectal tube: Enteral access: Discussed with [facility] Attending, Dr. Marquez. Charlene Syed PA-C Service pager: [phone] Service [place] #: [phone] (Beds [phone] and beds), [place] #: [phone] (Beds [phone] and [facility]) 07/15/22 7:17 AM * Teja Major MD - 07/15/2022 6:45 AM EST NSGY daily prog note S: No acute events, no complaints PE: Temp: [97.7 F (36.5 C)-98.7 F (37.1 C)] 97.7 F (36.5 C) Pulse (Heart Rate): [67-101] 70 Resp Rate: [16-49] 24 BP: (107-153)/(53-70) 115/57 O2 Sat (%): [90 %-98 %] 95 % Weight: [73.8 kg (162 lb 11.2 oz)] 73.8 kg (162 lb 11.2 oz) NAD A&Ox1, does not know location or date PERRL EOMI FS TM 11/27 RUE; 11/27 LUE 11/27 RLE; 11/27 LLE SILT Groin c/d/i WBC/Hgb/Hct/Plts: 13.44/13.0/38.4/227 (07/15 7) Na/K+/Phos/Mg/Ca: 139/4.0/2.3/2.3/-- (07/15 7) Bun/Creat/Cl/CO2/Glucose: 22/0.76/108/23/110 (07/15 7) Lab Results Component Value Date INR 1.1 07/14/2022 INR 1.1 07/13/2022 PT 14.0 07/14/2022 PT 13.8 07/13/2022 Intake/Output Summary (Last 24 hours) at 07/15/2022 0645 Last data filed at 07/15/2022 0559 Gross per 24 hour Intake 3007.99 ml Output 2110 ml Net 897.99 ml Imaging: IVH L>R lateral vents and 3rd and 4th niCARdipine (CARDENE) Infusion 10 mg/hr (07/15/22 0510) Sodium chloride 0.9% w/potassium cl 75 mL/hr at 07/15/22 0501 Atorvastatin 80 mg Oral QHS nicotine 1 patch Transdermal Daily And VERIFY LINKED PATCH PLACEMENT Other Q12H senna 8.6 mg Oral Daily Tamsulosin HCl 0.4 mg Oral Daily A/P 67 y.o. male hx smoking p/w N/V with diffuse IVH L>R\ S/p dca 07/14 w sharron mcdermott - EVD watch - neurochecks q1 - INR < 1.5, Platelets > 100, SBP <140 - hold all antiplatelet agents and anticoagulation - MRI brain with and without contrast when able - will revascularize once recovered from IVH * Cathleen Manuel OT - 07/14/2022 2:06 PM EST Acute Occupational Therapy Evaluation Prior to Admission AM-PAC Score: PRIOR LEVEL AM-PAC Activity Raw Score: 24 Current AM-PAC score(s): CURRENT AM-PAC Activity Raw Score: 17 Based on the above AM-PAC score(s) and OT clinical judgment, discharge destination recommendation is: Inpatient Rehab Facility (potential to progress to home with 15/02 supervision) Supporting Factors (would benefit from skilled therapy services): Patient status is anticipated to be appropriate to tolerate inpatient rehab therapy requirements at time of discharge from acute care, Recent decline in functional mobility, Fall risk, Recent decline in cognitive function, Recent decline in self-care abilities, Assistance needed with functional mobility, Impaired functional status,Impaired balance, Decreased endurance Mobility equipment available at home: none used ADL equipment available at home: none Equipment recommendations for discharge: to be determined Current therapy frequency recommendation(s) in acute: 5 times a week Precautions and Weightbearing Status: OT Existing Precautions/Restrictions: fall (elvira) Patient Safety Communication Prior to Visit: Nursing Subjective: Pt alert and agreeable to participate in therapy session. Supine upon arrival. Pain: General Pain Documentation (Adult, OB, Peds) Presence of Pain: denies pain/discomfort Home Setting Residence: House (2 story) Lives With: spouse Second floor setup: bedroom, walk in shower Number of stairs to enter home: 0 Number of stairs in home: (flight to second story) Mobility Equipment Available: none used ADL Equipment Available: none Home Environment Details: Pt questionable historian d/t some delayed processing/at-risk cognition this date. 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 IADL History IADLs: independent Primary Language: Tajik Objective/Observation: Vitals/Vitals Responses to Treatment: stable Respiratory Status O2 Device: room air Vision Screen Currently wearing corrective lenses: No Visual Impairments Observed?: No Speech Speech: no gross deficits noted (flat affect; speech appears grossly WFL) Successful Methods (Communication Strategies): verbal speech Hearing Hearing: no gross deficits noted Cognition Overall Cognitive Status: (at-risk) Arousal/Alertness: Appropriate responses to stimuli Orientation Level: Oriented to person, Oriented to place (states month correctly but year as ' and requires increased time) Following Commands: Follows one step commands without difficulty, Follows one step commands with increased time Safety Judgment: Decreased awareness of need for assistance, Decreased awareness of need for safety Awareness of Errors: Assistance required to correct errors made, Decreased awareness of errors Deficits: Decreased awareness of deficits Attention Span: Attends with cues to redirect, difficulty dividing attention Memory: Decreased recall of recent events Problem Solving: Assistance required to implement solutions, Assistance required to generate solutions Cognition Comments: Pt exhibits some delayed processing and mild confusion. Flat affect. Additionalcues throughout as needed. ADLs: ADL Assessment: Assessed All ADLs ADL Anticipated Performance (ADLs not directly observed this session): Eating, Grooming, UE Dressing, LE Dressing, Toileting, Bathing Eating Assistance: Independent Grooming Assistance: Contact guard assist Bathing Assistance: Minimal UE Dressing Assistance: Stand by LE Dressing Assistance: Minimal Toilet Assistance: Total ([place]; otherwise CGA) Extremity Assessments: RUE Assessment RUE Assessment: Within Functional Limits LUE Assessment LUE Assessment: Within Functional Limits Balance: Sitting Balance Static Sitting-Level of Assistance: Supervision Dynamic Sitting-Level of Assistance: Standby Standing Balance Static Standing-Level of Assistance: Stand-by assist, Contact guard Dynamic Standing-Level of Assistance: Contact guard, Minimum assistance Neuro: Sensation Sensation Comments: denies N/T Gross Coordination Gross Coordination: bilat UE intact Fine Motor Coordination Additional Documentation: (grossly WFL) Mobility Assessment: Supine to Sit Mobility [place] Level: Supine->Sit: stand-by assist Bed Features/Set-up: Supine->Sit: Head of bed elevated, Use of bed rail Skilled Rationale: Verbal cues, Technique of activity, Cues for increased safety, Initiation and execution of task Skilled Intervention/Details: Supine->Sit: Pt requires increased time and cues to initiate transfer. Able to bring LE over EOB and uses UE as needed to propel trunk to upright. Shifts hips anteriorly to approximate feet to floor using UE support with SBA. Transfer Assessment: Sit to Stand Transfer [place] Level: Sit->Stand: contact guard assist Assistive Device: Sit->Stand: gait belt Skilled Rationale: Verbal cues, Technique of activity, Cues for increased safety, Full extension toupright positioning/posture, Positioning Skilled Intervention/Details: Sit->Stand: Pt completes x1 stand from EOB this date. Uses UE to assist with leverage as needed. Mild postural sway upon standing, initial TRAIL CONSTRUCTION WORKER as needed. Stand to Sit Transfer [place] Level: Stand->Sit: contact guard assist Assistive Device: Stand->Sit: gait belt, armed chair Skilled Rationale: Verbal cues, Controlled descent for sitting, Technique of activity, Cues for increased safety Skilled Intervention/Details: Stand->Sit: Demos fair to good eccentric control. Cues to reach back for arm rests to prepare for safe transfer. Functional Mobility: Functional Mobility [place] Level: Functional Mobility/Gait: contact guard assist (intermittent Evin) Assistive Device: Functional Mobility/Gait: gait belt Functional Mobility Distance: Distance needed for limited community mobility Functional Mobility Deficits: Activity tolerance, Balance, Generalized weakness, Slowed gait speed,Attention Functional Mobility Skilled Rationale: Cues for increased safety, Facilitate postural control, Technique of activity, Verbal cues, Cues for cognitive deficit Skilled Intervention/Details - Functional Mobility/Gait: Pt ambulating in hallway this date with some unsteadiness/postural sway and slowed gait speed. No major LOB but increased unsteadiness with occassional need for Evin to correct/ensure stability. No SOB or requirement for rest break, mild fatigue with this activity. Pt with increased difficulty when distracted/dual tasking. Able to assist with locating room number. Outcome Score(s): CURRENT AM-PAC Daily Activity Inpatient Short Form Putting on/Taking Off Lower Body Clothin - A Little Assistance Bathin - A Little Assistance Toiletin - Total Assistance Putting on/Taking Off Upper Body Clothin - A Little Assistance Groomin - A Little Assistance Eatin - No Assistance CURRENT AM-PAC Activity Raw Score: 17 CURRENT AM-PAC Activity Functional Limitation/Modifier: 50.11% Currently Impaired in Daily Activity- CK Assessment & Plan: Patient is a 67 y.o. male with PMH significant for tobacco use disorder who presented to [facility] ED with nausea, vomiting, and headache found to have interventricular hemorrhage. Pt seen for therapy evaluation related to ability to safely/independently complete basic ADL tasks/functional mobility. Exam findings include impairments in: balance, cognitive impairments, transfers, endurance, reaction speed. These impairments contribute to occupational performance limitations including bathing, dressing, grooming, toileting, functional mobility, ADL transfers. Patient will benefit from skilled occupational therapy to address these impairments, occupational performance limitations, and participation restrictions. Patient's rehab potential is: good, to achieve stated therapy goals. Planned Therapy Interventions (OT Eval): ADL retraining, IADL retraining, balance training, functional activity tolerance, transfer training (cognitive training as appropriate) Patient Instruction/Education this session: Patient Instruction: role of OT; plan of care Plan for next session: continue OT plan of care; progression of functional standing tolerance and dynamic balance with ADLs Acute OT Goals Plan of Care by Cathleen Manuel OT at 07/14/2022 1:39 PM Version 1 of 1 Problem: OT - Dressing Goal: Lower Body Dressing Description: Pt will complete LE dressing tasks with modified independence for improved ability to complete self-care activities. Outcome: Ongoing Problem: OT - ADLs Goal: Toileting Description: Pt will complete toileting task including clothing management with modified independence for improved ability to safely complete self-care activities. Outcome: Ongoing Problem: OT - Cognition Goal: Cognition simple ADL Description: Pt will demonstrate improved cognition, completing simple ADL task for 10 minutes withno more than 2 cues required to maintain attention, for improved safety and success at discharge destination. Outcome: Ongoing Problem: OT - Balance Goal: Balance - Standing Description: Pt will perform 10 minutes of functional ADL task in standing with supervision and no major LOB to promote safety and improved balance required for self-care activities. Outcome: Ongoing Problem: OT - Endurance Goal: Endurance Functional Mobilty Around Home Description: Pt will complete distance needed for limited community mobility with supervision and good balance. Outcome: Ongoing Problem: OT - Other Goal: Energy Conservation with ADLs Description: Pt will independently utilize at least 3 energy conservation/pacing strategies during ADL completion to promote success and safety during daily routine. Outcome: Ongoing Evaluating Therapist: Cathleen Manuel OT Additional Details: Co-evaluation/co-treatment performed?: Yes, simultaneous billable skilled care This co-evaluation session performed between OT and PT was beneficial, necessary and provided distinct services in establishing this person's individual plan of care. Medical complexity with functional deficits necessitated two skilled therapy disciplines working concurrently to determine each discipline's goals. This co-treatment was medically necessary due to patient's: initial functional mobility assessment completed with 2 people for safety I was assisted by GARY Gonzalez for today's session. I used facemask, protective eye shield, and gloves in today's patient interaction. OT Evaluation Complexity Occupational Profile and Client History: Moderate - expanded history Assessment of Occupational Performance: Moderate (3-5 performance deficits) Clinical Decision/Performance Deficits: Moderate (detailed assessments w/several treatment options) Time In: 0840 Time Out: 0904 Total Visit Time: 24 minutes Total Treatment Time (skilled, billable minutes): 24 minutes Patient location at end of session: chair Alarms on at end of session: chair alarm and RN aware Needs in reach. Upon discontinuation of Acute Care Occupational Therapy Services or patient discharge from the hospital this note represents the current Occupational Therapy Discharge Summary. * MIGUEL A Morton - 07/14/2022 12:10 PM EST Acute Care Speech-Language Pathology Attempt Note 07/14/2022 MICROBIOLOGICAL LAB TECHNICIAN Therapy Completed: Attempted to see pt for a Speech-language/Cognitive Evaluation Attempted Reason: Patient is unavailable due to test/procedure (in the OR). Will re-attempt as able/appropriate. MIGUEL A Morton Time In: 1210 Time Out: 1210 Total Visit Time: 0 minutes Total Treatment Time (skilled, billable minutes): 0 minutes * Samir Marquez MD - 07/14/2022 11:19 AM EST The patient was seen and examined on 07/14/2022. The plan was formulated on the same day. Please refer to the [facility] note for additional details. Admitted for IVH. CTA with bilateral ICA occlusion and mcdermott mcdermott pattern. Exam: non-focal, confusion. Plan: Neurological: IVH Nicardipine drip SBP < 140 Normonatremia DCA Brain MRI. MARQUEZ, ESR, CRP, RF and TSH for workup. Following for the need of EVD. Respiratory: RA. Cardiology: Nicardipine drip Renal: Traumatic [place] insertion. [place] placed by Urology Only can be removed by Urology. Fluid goal @ 75 mls/hr. The patient is critically ill due to intraventricular hemorrhage requiring close neurological and hemodynamic monitoring and intravenous antihypertensive medications. Critical care time spent is 32 minutes. * Lilli Quinones - 07/14/2022 11:18 AM EST Attempted initial discharge planning assessment however pt not available, in OR. Family not available. Will assess as able. Lilli Thornton OTR/L, CCM, [facility] Production Underwriter * Osei Del Castillo [facility] - 07/14/2022 9:08 AM EST Department of Pharmacy Admission Medication Reconciliation Note Patient: Love Skinner Room/Bed: 1052/A The patient's allergies were not assessed at this time, and I have reviewed the patient's home medication list with the following sources Patient recall without prompting. I have also reviewed this list with the medical team. All changes to the home medication list have been updated in [facility]. Updated CREDIT NEGOTIATOR Med List: None Please feel free to contact me with any further questions. Name: Osei Del Castillo [facility] Phone #: [phone] Date/Time: 07/14/2022 11:55 AM Time Spent: 5 minutes * Lisa Balbuena PT - 07/14/2022 9:04 AM EST Acute Physical Therapy Evaluation Prior to Admission [facility] score(s): PRIOR LEVEL AM-PAC Mobility Raw Score: 24 Current AM-PAC score(s): CURRENT AM-PAC Mobility Raw Score: 19 Based on the above AM-PAC score(s) and PT clinical judgment, patient is a good candidate for discharge to Inpatient Rehab Facility (Potential to progress to home with initial 24 hour supervision and assist, and OP PT.) Supporting Factors (would benefit from skilled therapy services): Impaired functional status, Impaired balance, Decreased endurance necessitating skilled therapy services, but able to tolerate therapy requirements for inpatient rehab, Impaired cognitive status, Assistance needed with functional mobility, Fall risk Mobility equipment available at home: none used ADL equipment available at home: none Equipment needed for discharge: to be determined Current therapy frequency recommendation in acute: Therapy Frequency: 5 times a week Precautions and Weightbearing Status: Existing Precautions/Restrictions: fall Urinary catheter, Telemetry Patient Safety Communication Prior to Visit: Nursing Subjective: Pt supine with HOB elevated on arrival. Agreeable to Physical Therapy. Pain: General Pain Documentation (Adult, OB, Peds) Presence of Pain: denies pain/discomfort Home Setting Residence: House (2 story) Lives With: spouse Second floor setup: bedroom, walk in shower Number of stairs to enter home: 0 Number of stairs in home: (flight to second story) Mobility Equipment Available: none used ADL Equipment Available: none Home Environment Details: Pt questionable historian d/t some delayed processing/at-risk cognition this date. 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 Objective/Observation: Vitals/Vitals Responses to Treatment: Stable Respiratory Status O2 Device: room air Cognition Overall Cognitive Status: (At risk) Arousal/Alertness: Appropriate responses to stimuli Orientation Level: Oriented to person, Oriented to place (increased time, correctly indicates June as the month, but reports the year as .) Following Commands: Follows one step commands with increased time, Follows one step commands with repetition Safety Judgment: Decreased awareness of need for assistance, Decreased awareness of need for safety Awareness of Errors: Assistance required to correct errors made Deficits: Decreased awareness of deficits Attention Span: Attends with cues to redirect Memory: Decreased recall of recent events Problem Solving: Assistance required to implement solutions Cognition Comments: Delayed processing. Flat affect. Poor initiation. Vision Screen Currently wearing corrective lenses: No Visual Impairments Observed?: No Speech Speech: no gross deficits noted Successful Methods (Communication Strategies): verbal speech Hearing Hearing: no gross deficits noted Extremity Assessments: RLE Assessment RLE Assessment: Within Functional Limits LLE Assessment LLE Assessment: Within Functional Limits Sensation Overall Sensation: Intact Sensation Comments: Denies numbness/tingling Proprioception Proprioception: intact Skin Integrity Skin Integrity Description: WFL Edema Edema: none noted Mobility Assessment: Supine to Sit Mobility [place] Level: Supine->Sit: stand-by assist Bed Features/Set-up: Supine->Sit: Head of bed elevated, Use of bed rail Skilled Rationale: Verbal cues, Cues for increased safety Skilled Intervention/Details: Supine->Sit: Increased time to achieve upright. Verbal cues to scoot hips to EOB. Balance: Sitting Balance Static Sitting-Level of Assistance: Supervision Dynamic Sitting-Level of Assistance: Standby Skilled Rationale: Cues for increased safety Sitting Balance Skilled Intervention/Details: No LOB while seated EOB. Standing Balance Static Standing-Level of Assistance: Stand-by assist, Contact guard Dynamic Standing-Level of Assistance: Contact guard, Minimum assistance Standing-Balance Support: Gait belt Skilled Rationale: Verbal cues, Full extension to upright positioning/posture, Cues for increased safety Standing Balance Skilled Intervention/Details: Increased postural sway with x1 LOB requiring Min A to correct. Flexed posture. Transfer Assessment: Sit to Stand Transfer [place] Level: Sit->Stand: contact guard assist Assistive Device: Sit->Stand: gait belt Skilled Rationale: Verbal cues, Tactile cues, Facilitate anterior shift, Full extension to upright positioning/posture, Cues for increased safety Skilled Intervention/Details: Sit->Stand: x1 from EOB with increased time to upright. Stand to Sit Transfer [place] Level: Stand->Sit: contact guard assist Assistive Device: Stand->Sit: gait belt, armed chair Skilled Rationale: Verbal cues, Controlled descent for sitting, Cues for increased safety Skilled Intervention/Details: Stand->Sit: Fair to good eccentric control. Verbal cues to reach back prior to sitting. Gait/Functional Mobility: Gait Assessment [place] Level: Gait: contact guard assist Assistive Device: Gait: gait belt Ambulation Distance (Feet): 300 Gait Deviations Identified: decreased gait speed, increased postural sway, flexed posture Gait Skilled Rationale: verbal, upright posture Skilled Intervention/Details - Gait: x1 LOB requiring Min A to correct. Slow speed which he says differs from his baseline. Wheelchair Assessment Patient currently uses wheelchair?: No Stairs: Stairs Assessment [place] Level: Stair Negotiation: not tested Outcome Score(s): CURRENT [facility] Basic Mobility Inpatient Short Form Turning over in bed: 4 - No Assistance Sitting/standing from chair: 3 - A Little Assistance Moving from lying on back to sittin - A Little Assistance Moving to and from bed to chair: 3 - A Little Assistance Walk in hospital room: 3 - A Little Assistance Climbing 3-5 steps with a railin - A Little Assistance CURRENT [facility] Mobility Raw Score: 19 CURRENT [facility] Mobility Functional Limitation/Modifier: 41.77% Currently Impaired in Basic Mobility- CK Interventions: Assessment & Plan: Patient was admitted for IVH with suspected [place] and seen for therapy evaluation related to impaired functional mobility and fall risk. Exam findings include impairments in: Balance, Posture, Transfers, Gait/Locomotion, Cognition/Arousal/Attention, Aerobic capacity/endurance. These impairments contribute to functional limitations including Decreased ambulation distance/endurance, Difficulty stair climbing/descent, Increased fall risk, Difficulty ambulating on uneven/dynamic surfaces, Limited standing tolerance. Current clinical presentation is Evolving - changing/inconsistent clinical characteristics (Moderate). Patient history factors impacting Plan Of Care include Impaired cognition. Patient will benefit from skilled physical therapy to address these impairments, functional limitations, and participation restrictions and has good rehab potential to achieve therapy goals. Planned Therapy Interventions: balance training, endurance, functional activity tolerance, gait training, transfer training Patient Instruction/Education this session: OOBTC and ambulate TID Plan for next session: Progress standing balance, gait training. Acute PT Goals Plan of Care by Lisa Balbuena PT at 07/14/2022 9:04 AM Version 1 of 1 Problem: PT - Balance/Coordination/Neuro Re-Education Goal: Standing Dynamic/Static Balance Description: Pt will perform standing balance tasks for 15 minutes with supervision with out an assistive device in order to improve functional mobility and safety with standing tasks. Outcome: Ongoing Problem: PT - Mobility Goal: Ambulation Description: Pt will ambulate 500 feet with out an assistive device with supervision to improve ability to navigate home environment. Outcome: Ongoing Goal: Stairs Description: Pt will ascend/descend 12 stairs with railings with supervision with out an assistive device to improve ability to perform functional mobility necessary in recommended discharge environment. Outcome: Ongoing Problem: PT - Transfers Goal: Supine <-> Sit Description: Pt will perform bed mobility with flat bed & no rail with independence in order toimprove functional mobility and safety. Outcome: Ongoing Goal: Sit <-> Stand Description: Pt will perform sit to/from stand transfers with supervision with out an assistive device in order to improve functional mobility and safety. Outcome: Ongoing Lisa Balbuena PT, DPT License #: [id number] Pager #: [phone] Evaluating Therapist: Lisa Balbuena PT Additional Details: Co-evaluation/co-treatment performed?: Yes, simultaneous billable skilled care This co-evaluation session performed between PT and OT was beneficial, necessary and provided distinct services in establishing this person's individual plan of care. Medical complexity with functional deficits necessitated two skilled therapy disciplines working concurrently to determine each discipline's goals. This co-treatment was medically necessary due to patient's: Cognitive issues, Postural control and balance, activity tolerance. I used facemask, protective eye shield, and gloves in today's patient interaction. Evaluation Complexity Components History: Moderate (1-2 personal factors and/or comorbidities) Body Systems Review: Moderate (Addressing a total of 3 or more elements) Clinical Presentation: Evolving - changing/inconsistent clinical characteristics (Moderate) Clinical Decision Making: Moderate Time In: 0840 Time Out: 0904 Total Visit Time: 24 minutes Total Treatment Time (skilled, billable minutes): 24 minutes Patient location at end of session: chair Alarms on at end of session: chair alarm Needs in reach. Upon discontinuation of Acute Care Physical Therapy Services or patient discharge from the hospitalthis note represents the current Physical Therapy Discharge Summary. * Waleska Briggs APRN-[employer] - 07/14/2022 8:19 AM EST NEUROCRITICAL CARE DAILY NOTE HOSPITAL VISIT DEMOGRAPHICS Patient: Love Skinner Code status: No Order Admission date: 07/14/2022 3:12 AM Hospital days: LOS: 0 days HISTORY OF PRESENT ILLNESS Love Skinner is a 67 y.o. male with a past history of tobacco-use (0.5 PPD) and marijuana-use. The patient presented to OSH with acute onset severe headache, N&V, LUE drift, and AMS. LKW 07/14 1200. CTH demonstrated hemorrhage in bilateral lateral ventricles L>R. [facility] transferred [facility] management. Upon arrival to [facility], he was on a cardene gtt for SBP <140. CTH demonstrated stable-appearing IVHof the bilateral lateral ventricles and basal cistern w/o evidence of hydrocephalus. 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 INTERVAL HISTORY SINCE ADMISSION 07/14/2022: admitted to [facility] PHYSICAL EXAM GENERAL: Alert, no acute distress. HEENT: normocephalic, no scalp wounds nor lesions, dentures intact CARDIO: +S1S2, RRR, no murmurs, no edema. NSR on tele PULM: diminished to auscultation bilaterally, equal chest rise. Respirations unlabored. Tolerating RA ABDOMINAL: flat, soft, nontender, nondistended, active bowel sounds EXTREMITIES: no wounds or lesions VASCULAR: 2+ distal pulses, capillary refill <3 seconds NEURO: Mental status: alert; oriented to person only Speech/language: object naming intact; repetition intact Cranial nerves: CN II: Visual ponce intact to confrontation. 2mm PERRL. video and sound recorder III, IV and : EOMI. No nystagmus. CN V: Facial sensation intact to light touch. CN VII: Facial strength normal with symmetric movement. CN VIII: Hearing is grossly intact. CN IX and X: Soft palate elevates symmetrically in the midline CN XI: Shoulder shrug and sternocleidomastoid strength 5/5 bilaterally CN XII: Tongue is midline with normal movement; no fasciculations Motor: Normal bulk and tone. No UE drift. 5/5 strength x4 Sensation: Extremity sensation intact throughout. Coordination: No ataxia, dysmetria FTS ASSESSMENT AND PLAN Neuro: Bilateral Lateral Ventricular Hemorrhage Bilateral ICA Occlusion with Reconsitution Concern for Mcdermott Mcdermott Headache - IVH Management: - Monitor neurostatus with neurochecks Q1H and pupilometer Q1H - Prevent further expansion with goal SBP <140 (see cards) - 07/14 NSGY consult: possible EVD placement if hydrocephalus - 07/14 DCA: bilateral ICA occlusion with collateral flow from ECA's and posterior circulation - Daily NIHSS: NIH Stroke Scale: NIH Level of Conciousness (Provider): 0 NIH LOC Questions (Provider): 2 NIH LOC Commands (Provider): 0 NIH Best Gaze (Provider): 0 NIH Visual (Provider): 0 NIH Facial Palsy (Provider): 0 NIH Left Arm Motor (Provider): 0 NIH Right Arm Motor (Provider): 0 NIH Left Leg Motor (Provider): 0 NIH Right Leg Motor (Provider): 0 NIH Limb Ataxia (Provider): 0 NIH Sensory (Provider): 0 NIH Best Language (Provider): 0 NIH Dysarthria (Provider): 0 NIH Extinction and Inattention (Provider): 0 NIH Total Score (Provider): 2 - Imaging: - 07/13 CTA H/N: occlusion of bilateral internal carotid arteries; 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 No evidence of hydrocephalus. - 07/14 CTH (0630, 6h stability): stable - 07/14 CTH post-DCA: stable, early hydrocephalus - repeat CTH in AM - MRI B w/wo: pending - Concern for mcdermott-mcdermott - 07/14 send: - MARQUEZ: P - CRP: 3.96 - ESR: 8 - RF: <10 - TSH/FT4 reflex: 0.723 - Cytotoxic Cerebral Edema Management: - Goal Na 135 - 145; monitor Na QHS Recent Labs 07/13/22 2339 07/14/22 0450 SODIUM 136 138 OSMOLALITY 288 292 CHLORIDE 104 105 - Hemorrhage presumably 2/2 unknown (HTN? Atherosclerotic?) etiology; evaluation for cause and source: - Complete TTE (see cards) - Obtain LDL level and statin therapy if indicated (see cards) - Obtain HA1C level (see endo) - Defer antiplatelet therapy and therapeutic anticoagulation - Consider urine drug screen on admission if no stroke risk factors: cotinine, THC - Consider hypercoagulability panel 24H-post tPA if no stroke risk factors - Initiate VTE prophylaxis after bleed stability established (see heme) - Pain/Sedation management - Tylenol 650mg Q4H PRN Psych: No Current Issues Pulm: Emphysema Tobacco-Use Marijuana-Use O2 Sat (%): 92 % (07/14 0800) O2 Device: room air (07/14 0500) - Goal SpO2 >92%; wean FiO2 as tolerated - [id number], encourage pulmonary toileting - PRN Duonebs - nicotine patch Cards: HLD Temp: [98.2 F (36.8 C)-99.2 F (37.3 C)] 98.7 F (37.1 C) Pulse (Heart Rate): [76-108] 76 Resp Rate: [18-28] 20 BP: (116-156)/(58-79) 137/63 O2 Sat (%): [90 %-97 %] 92 % Weight: [77.7 kg (171 lb 4.8 oz)] 77.7 kg (171 lb 4.8 oz) - Goal SBP <140, MAP >65 - Home antihypertensives: none - cardene gtt - PRN labetalol and hydralazine - TTE: pending - 07/13 troponin: 3 - 07/14 ECG: NSR, qtc 471 - 07/14 LDL 131, began Atorvastatin 80 mg Recent Labs 07/13/222338 CHOLESTEROL 195 TRIG 63 HDL 51 LDL 131 Renal/: Hypocalcemia Traumatic [place] placement BPH Acute urinary Retention - Fluid Balance: - Goal: euvolemia Intake/Output Summary (Last 24 hours) at 07/14/2022 0819 Last data filed at 07/14/2022 0727 Gross per 24 hour Intake 179.39 ml Output 1600 ml Net -1420.61 ml - BPH/traumatic [place] placement: - Start flomax - [place] placed per urology, appreciate recs: - Recommend keeping catheter in place for 72h (at least until 12/23 AM) prior to a trial of void - This was a complex catheter placement, the catheter is NOT to be removed prior to the above date w/o first discussing w/ the Urology consults team - Maintenance: 0.9NS w/ 20 KCl @ 75 mL/hr while NPO, Total fluid goal 75 ml/h - Daily Chem 10; electrolytes replaced per [facility] protocol Recent Labs 07/13/22233807/14/22 0450 SODIUM 136 138 POTASSIUM 3.9 3.9 CHLORIDE 104 105 CO2 23 23 BUN 14 14 CREATSERUM 0.72 0.78 MAGNESIUM -- 1.9 PHOSPHORUS -- 2.8 ICA -- 4.49* GI/Nutrition: No Current Issues Recent Labs 07/13/222338 ALBUMIN 4.2 BILIDIRECT 0.2 BILITOTAL 1.5* ALKPHOS 57 ALT 16 AST 18 TP 7.0 - DIET NPO with meds - [place] Swallow Screening Result: passed=cleared for oral intake - Consult nutrition for malnutrition screening - There is no height or weight on file to calculate BMI. - 07/13 LFT: WNL - Bowel regimen: - Last Bowel Movement: (CREDIT NEGOTIATOR) - Senna, prn miralax Endo: Risk for Stress-Induced Hyperglycemia - Goal blood glucose 140-180 - monitor for need for SSI - 07/13 hgb a1c: 5.7 Recent Labs 07/13/229 07/14/22 0450 GLUCOSE 137* 135* HGBA1C 5.7* -- ID: Acute Leukocytosis 2/2 acute stress/IVH Recent Labs 07/13/22233807/14/22 0450 WBC 14.04* 13.06* - Temp (24hrs), Av.7 F (37.1 C), Min:98.2 F (36.8 C), Max:99.2 F (37.3 C) - PRN Tylenol for T>100.4F - Most recent and positive cultures: Date Collected Source Result Date Finalized 07/14 UA negative 07/14 MRSA swab P - Antiinfectives: Start Date Antiinfective Coverage Course Length Stop Date 07/14 Ancef Urethral false passage x1 dose 07/14 Heme/Onc: No Current Issues Recent Labs 07/13/22233807/14/22 0450 WBC 14.04* 13.06* RBC 4.76 4.42 HGB 14.6 13.6 HCT 43.0 40.2 PLATELET 260 242 PT 13.8 14.0 PTT 34.3 33.6 INR 1.1 1.1 - Goal plt >100, INR <1.4, Hgb >7 Musc: No Current Issues - PT/OT consulted and following - Current Activity Order: AAT Social/Dispo: - Code status: No Order - Primary Emergency Contact: Rajiv Skinner - 07/14: - Discharge planning per PCRM/SW. - ICU diary updated: 07/14 ICU Checklist: [ ] CAM-ICU [x ] DVT ppx; [x ] SCDs; [ ] Lovenox, [ ] heparin [ ] Stress ulcer prophylaxis: none - Lines/Tubes: [place]: CVC: [place]: inserted 07/14, (indication: BPH,urinary retention) Rectal tube: Enteral access: Patient seen and plan of care discussed with NCCU Attending, Dr. Marquez. RADHA Salinas Service pager: [phone] Service [place] #: [phone] (Beds [phone] and beds), [place] #: [phone] (Beds [phone] and [facility] beds) 07/14/22 8:19 AM * Charlene Syed PA-C - 07/14/2022 8:09 AM EST NEUROCRITICAL CARE HISTORY AND PHYSICAL HOSPITAL VISIT DEMOGRAPHICS Patient: Love Skinner Code status: No Order Admission date: 07/14/2022 3:12 AM Hospital days: LOS: 0 days CHIEF COMPLAINT IVH w/ concern for obstructive hydrocephalus HISTORY OF PRESENT ILLNESS Love Skinner is a 67 y.o. male with a past history of tobacco-use (0.5 PPD) and marijuana-use. The patient presented to OSH with acute onset severe headache, N&V, LUE drift, and AMS. LKW 07/13 1200. CTH demonstrated hemorrhage in bilateral lateral ventricles L>R. Patient transferred to [facility] for further management. Upon arrival to [facility], he was on a cardene gtt for SBP <140. CTH demonstrated stable-appearing IVHof the bilateral lateral ventricles and basal cistern w/o evidence of hydrocephalus. 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 INTERVAL HISTORY SINCE ADMISSION 07/14/2022: admitted to [facility], DCA, CTH, [place] placed by urology, start diet PHYSICAL EXAM GENERAL: Alert, no acute distress. Aware only to self. HEENT: normocephalic, no scalp wounds nor lesions, dentures intact CARDIO: +S1S2, RRR, no m/r/g, no edema PULM: speaks in full sentences. Room air. ABDOMINAL: flat soft, nontender, nondistended, active bowel sounds EXTREMITIES: no wounds or lesions VASCULAR: 2+ distal pulses NEURO: Alert only to self. EOMI intact. Follows commands. Hearing intact. Object naming intact. 5/5strength in bilateral and lower extremities. No UE drift. ASSESSMENT AND PLAN Neuro: Bilateral Lateral Ventricular Hemorrhage Bilateral ICA Occlusion with Reconsitution Concern for Mcdermott Mcdermott Headache - IVH Management: - Monitor neurostatus with neurochecks Q1H and pupilometer Q1H - Prevent further expansion with goal SBP <140 (see cards) - 07/14 NSGY consult: possible EVD placement if hydrocephalus -07/14 DCA: ICA occlusion bilaterally with developmental of collateral flow from ECA's and posterior circulation. Daily NIHSS: NIH Stroke Scale: NIH Level of Conciousness (Provider): 0 NIH LOC Questions (Provider): 2 NIH LOC Commands (Provider): 0 NIH Best Gaze (Provider): 0 NIH Visual (Provider): 0 NIH Facial Palsy (Provider): 0 NIH Left Arm Motor (Provider): 0 NIH Right Arm Motor (Provider): 0 NIH Left Leg Motor (Provider): 0 NIH Right Leg Motor (Provider): 0 NIH Limb Ataxia (Provider): 0 NIH Sensory (Provider): 0 NIH Best Language (Provider): 0 NIH Dysarthria (Provider): 0 NIH Extinction and Inattention (Provider): 0 NIH Total Score (Provider): 2 - Imaging: - 07/13 CTA H/N: occlusion of bilateral internal carotid arteries; 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 No evidence of hydrocephalus. - 07/14: 6H-stability CT H: stable -07/14 CT H post DCA: Stable. Mild hydrocephalus. -07/15: CT H ordered - MRI B WWO: pending - Cytotoxic Cerebral Edema Management: - Goal Na 135 - 145; monitor Na QHS Recent Labs 07/13/22 2339 07/14/22 0450 SODIUM 136 138 OSMOLALITY 288 292 CHLORIDE 104 105 - Hemorrhage presumably 2/2 unknown (HTN? Atherosclerotic?) etiology; evaluation for cause and source: - Complete TTE ordered - Obtain LDL level and statin therapy if indicated (see cards) - Obtain HA1C level 5.7% - Defer antiplatelet therapy and therapeutic anticoagulation - Consider urine drug screen on admission if no stroke risk factors - Consider hypercoagulability panel 24H-post tPA if no stroke risk factors - Initiate VTE prophylaxis after bleed stability established (see heme) Sharron Mcdermott Workup: -07/14: Order - MARQUEZ: p - ESR 8 - CRP 3.96 - RF<10 -TSH: 0.723 - Pain/Sedation management - Tylenol 650mg Q4H PRN Psych: No Current Issues Pulm: Emphysema Tobacco-Use Marijuana-Use O2 Sat (%): 90 % (07/14 0700) O2 Device: room air (07/14 0500) - Goal SpO2 >92%; wean FiO2 as tolerated - [id number], encourage pulmonary toileting - PRN Duonebs Cards: HLD Hypertension Temp: [98.2 F (36.8 C)-99.2 F (37.3 C)] 98.7 F (37.1 C) Pulse (Heart Rate): [76-108] 76 Resp Rate: [18-28] 20 BP: (116-156)/(58-79) 146/65 O2 Sat (%): [90 %-97 %] 90 % Weight: [77.7 kg (171 lb 4.8 oz)] 77.7 kg (171 lb 4.8 oz) - Goal SBP <140, MAP >65 - Home antihypertensives: none -Current Regimen: Nicardipine gtt-(POA from OSH) - PRN labetalol and hydralazine - TTE: pending - 07/13 troponin: 3 - 07/14 ECG: NSR -07/13: LDL: 131 - Statin Therapy: Indicated if LDL >70; began Atorvastatin 80 mg Recent Labs 07/13/22 2339 CHOLESTEROL 195 TRIG 63 HDL 51 LDL 131 Renal/: BPH Urinary Retention Traumatic [place] Placement w/ false lumen - Fluid Balance: - Goal: Fluid goal of 75 mL/hr Intake/Output Summary (Last 24 hours) at 07/14/2022 0809 Last data filed at 07/14/2022 0727 Gross per 24 hour Intake 179.39 ml Output 1600 ml Net -1420.61 ml BPH: - Start flomax Traumatic [place] Placement: -- [place] placed per urolog - Recommend keeping catheter in place for 72h (at least until 07/17 AM) prior to a trial of void, the catheter is NOT to be removed prior to the above date w/o first discussing w/ the Urology consults team. - Maintenance: 0.9NS / KCl @ 75 mL/hr - Daily Chem 10; electrolytes replaced per [facility] protocol Recent Labs 07/13/22233807/14/22 0450 SODIUM 136 138 POTASSIUM 3.9 3.9 CHLORIDE 104 105 CO2 23 23 BUN 14 14 CREATSERUM 0.72 0.78 MAGNESIUM -- 1.9 PHOSPHORUS -- 2.8 ICA -- 4.49* GI/Nutrition: No Current Issues Recent Labs 07/13/222338 ALBUMIN 4.2 BILIDIRECT 0.2 BILITOTAL 1.5* ALKPHOS 57 ALT 16 AST 18 TP 7.0 - DIET NPO with meds - thereNow Swallow Screening Result: passed=cleared for oral intake - 07/14 Start diet - There is no height or weight on file to calculate BMI. - Bowel regimen: - Last Bowel Movement: (CREDIT NEGOTIATOR) - Senna daily, miralax PRN Endo: Risk for Stress-Induced Hyperglycemia - Goal blood glucose 140-180. Monitor need for insulin. Recent Labs 07/13/22233807/14/22 045 GLUCOSE 137* 135* HGBA1C 5.7* -- Hemoglobin A1c: 5.7% ID: Acute Leukocytosis 2/2 acute stress/IVH Recent Labs 07/13/22233807/14/22 0450 WBC 14.04* 13.06* - Temp (24hrs), Av.7 F (37.1 C), Min:98.2 F (36.8 C), Max:99.2 F (37.3 C) - PRN Tylenol for T>100.4F - Most recent and positive cultures: Date Collected Source Result Date Finalized 07/14 MRSA/MSSA Pending - Antiinfectives: Start Date Antiinfective Coverage Course Length Stop Date 07/14 Ancef Urethral false passage x1 07/14 Heme/Onc: Reactive Leukocytosis Recent Labs 07/13/22233807/14/22 0450 WBC 14.04* 13.06* RBC 4.76 4.42 HGB 14.6 13.6 HCT 43.0 40.2 PLATELET 260 242 PT 13.8 14.0 PTT 34.3 33.6 INR 1.1 1.1 - Goal plt >100, INR <1.4, Hgb >7 07/14: Resume DVT prophylaxis on 07/15 Musc: No Current Issues - PT/OT consulted and following - Current Activity Order: AAT Social/Dispo: - Code status: No Order - Primary Emergency Contact: Rajiv Skinner - 07/14: Last updated Family. - Discharge planning per PCRM/SW. ICU Checklist: [ ] CAM-ICU [x ] DVT ppx; [x ] SCDs; [ ] Lovenox, [ ] heparin [ ] Stress ulcer prophylaxis: - Lines/Tubes: [place]: CVC: [place]: inserted 07/14, (indication:BPH,urinary retention) Rectal tube: Enteral access: Discussed with NCCU Attending, Dr. Marquez. Charlene Syed PA-C Service pager: [phone] Service [place] #: [phone] (Beds [phone] and beds), [place] #: [phone] (Beds [phone] and [facility]) 07/14/22 8:09 AM * RADHA Shahid - 07/14/2022 6:45 AM EST Neurovascular Stroke Service Intracerebral Hemorrhage Note IDENTIFYING INFORMATION Love Skinner MR# [id number] 07/14/2022 HISTORY OF PRESENT ILLNESS Love Skinner is a 67 y.o. male with PMH significant for tobacco use disorder who presented to OSH EDwith nausea, vomiting, and headache found to have interventricular hemorrhage. Symptoms started around 1200 on 07/13/2022 while he was working. He was taken to OSH where CTH demonstrated bilateral IVH L>R. [facility]up. He does not take any anticoagulants or antiplatelets. He arrived on cardene drip and SBP less than 140. NIH 3 on arrival for LUE weakness and confusion. INTERVAL HISTORY 07/14: DCA pending today to evaluate for suspected Mcdermott Mcdermott and IVH etiology PHYSICAL EXAM Gen: awake, alert, NAD HEENT: normocephalic, no scalp lesions or tenderness, PERRLA, EOMI Neck: trachea midline, no JVD CV: +S1S2, RRR, no m/r/g Lungs: LCTA bilaterally with equal chest rise Abd: soft, nontender, nondistended, +BS x4 quadrants Extrem: Warm and well perfused, no cyanosis, clubbing, edema, 2+ pulses bilaterally Neuro: Oriented x4, ARAGON x4, sensation intact and equal bilaterally CN II - All visual ponce intact CN II/III - PERRLA CN III/IV/ - EOMI CN V - Light touch to face intact in all 3 divisions CN VII - Facial movement intact and symmetrical bilaterally CN VIII - Hearing intact CN X - Cough present CN XI - muscular movement of shoulders and sternocleidomastoid muscles intact and equal bilaterally CN XII - midline protrusion of tongue MOTOR EXAMINATION: no drift noted NIHSS Intracerebral Hemorrhage Volume Intracerebral Hemorrhage Score Score 30 Day Mortality following ICH 0 0% Mortality 1 13% Mortality 2 26% Mortality 3 72% Mortality 4 97% Mortality 5 100% Mortality ASSESSMENT AND PLAN Neuro: IVH, ICH score 1 CTH on arrival: IVH L > R, stable from outside hospital CTA: no spot sign. 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 -Antiplatelet therapy is not indicated. -Anticoagulation therapy not indicated in hemorrhagic stroke -Patients LDL 131 and HgbA1c were checked and the patient will be discharged on atorvastatin 80 mg -Dysphagia screening ordered, and will be completed prior to patient receiving oral intake. -Stroke education booklet has been provided both written and verbal education to the patient and family regarding hemorrhagic strokes. We have reviewed the patient's personal modifiable risk factors as well as education on reducing these risk factors. -Patient is being assessed for Rehab by PT/OT/Speech and PM&R if indicated. RADHA Shahid 07/14/2022 6:45 AM VITAL SIGNS Temp: [98.2 F (36.8 C)-99.2 F (37.3 C)] 99.2 F (37.3 C) Pulse (Heart Rate): [79-108] 79 Resp Rate: [18-28] 20 BP: (116-156)/(58-79) 130/62 O2 Sat (%): [90 %-97 %] 93 % Weight: [77.7 kg (171 lb 4.8 oz)] 77.7 kg (171 lb 4.8 oz) IMAGING/DIAGNOSTIC STUDIES ECHOCARDIOGRAM (Results Pending) MEDICATIONS Atorvastatin 80 mg Oral QHS nicotine 1 patch Transdermal Daily And VERIFY LINKED PATCH PLACEMENT Other Q12H senna 8.6 mg Oral Daily Or senna 8.6 mg Per NG tube Daily Tamsulosin HCl 0.4 mg Oral Daily * Teja Major MD - 07/14/2022 6:12 AM EST NSGY daily prog note S: No acute events, no complaints PE: Temp: [98.2 F (36.8 C)-99.2 F (37.3 C)] 99.2 F (37.3 C) Pulse (Heart Rate): [79-108] 84 Resp Rate: [18-28] 23 BP: (116-156)/(58-79) 136/65 O2 Sat (%): [92 %-97 %] 92 % Weight: [77.7 kg (171 lb 4.8 oz)] 77.7 kg (171 lb 4.8 oz) NAD A&Ox2, does not know location PERRL EOMI FS TM 5/5 RUE; 5/5 LUE 5/5 RLE; 5/5 LLE SILT WBC/Hgb/Hct/Plts: 13.06/13.6/40.2/242 (07/14 450) Na/K+/Phos/Mg/Ca: 138/3.9/2.8/1.9/-- (07/14 450) Bun/Creat/Cl/CO2/Glucose: 14/0.78/105/23/135 (07/14 0450) Lab Results Component Value Date INR 1.1 07/14/2022 INR 1.1 07/13/2022 PT 14.0 07/14/2022 PT 13.8 07/13/2022 Intake/Output Summary (Last 24 hours) at 07/14/2022 0612 Last data filed at 07/14/2022 0558 Gross per 24 hour Intake 179.39 ml Output 1300 ml Net -1120.61 ml Imaging: IVH L>R lateral vents and 3rd and 4th niCARdipine (CARDENE) Infusion 5 mg/hr (07/14/22 0551) Sodium chloride 0.9% w/potassium cl 75 mL/hr at 07/14/22 0500 Atorvastatin 80 mg Oral QHS nicotine 1 patch Transdermal Daily And VERIFY LINKED PATCH PLACEMENT Other Q12H senna 8.6 mg Oral Daily Or senna 8.6 mg Per NG tube Daily Tamsulosin HCl 0.4 mg Oral Daily A/P 67 y.o. male hx smoking p/w N/V with diffuse IVH L>R - EVD watch - neurochecks q1 - INR < 1.5, Platelets > 100, SBP <140 - hold all antiplatelet agents and anticoagulation - MRI brain with and without contrast when able - DCA today - [facility]* Plan of Care - Cathleen Manuel OT - 07/23/2022 2:18 PM EST Problem: OT - Cognition Goal: Cognition simple ADL Description: Pt will demonstrate improved cognition, completing simple ADL task for 10 minutes withno more than 2 cues required to maintain attention, for improved safety and success at discharge destination. Outcome: Ongoing Problem: OT - Balance Goal: Balance - Standing Description: Pt will perform 10 minutes of functional ADL task in standing with supervision and no major LOB to promote safety and improved balance required for self-care activities. Outcome: Ongoing [facility] Note* Plan of Care - Cathleen Manuel OT - 07/23/2022 2:18 PM EST Problem: OT - Cognition Goal: Cognition simple ADL Description: Pt will demonstrate improved cognition, completing simple ADL task for 10 minutes withno more than 2 cues required to maintain attention, for improved safety and success at discharge destination. Outcome: Ongoing Problem: OT - Balance Goal: Balance - Standing Description: Pt will perform 10 minutes of functional ADL task in standing with supervision and no major LOB to promote safety and improved balance required for self-care activities. Outcome: Ongoing [facility]12-29-2022 Note* Plan of Care - Lisa Balbuena PT - 07/23/2022 11:49 AM EST Problem: PT - Balance/Coordination/Neuro Re-Education Goal: Standing Dynamic/Static Balance Description: Pt will perform standing balance tasks for 15 minutes with supervision with out an assistive device in order to improve functional mobility and safety with standing tasks. Outcome: Ongoing Problem: PT - Transfers Goal: Supine <-> Sit Description: Pt will perform bed mobility with flat bed & no rail with independence in order toimprove functional mobility and safety. Outcome: Ongoing Goal: Sit <-> Stand Description: Pt will perform sit to/from stand transfers with supervision with out an assistive device in order to improve functional mobility and safety. Outcome: Ongoing Lisa Balbuena PT, DPT License #: [id number] Pager #: [phone] [facility]12-29-2022 Note* Plan of Nicole - Lisa Balbuena PT - 07/23/2022 11:49 AM EST Problem: PT - Balance/Coordination/Neuro Re-Education Goal: Standing Dynamic/Static Balance Description: Pt will perform standing balance tasks for 15 minutes with supervision with out an assistive device in order to improve functional mobility and safety with standing tasks. Outcome: Ongoing Problem: PT - Transfers Goal: Supine <-> Sit Description: Pt will perform bed mobility with flat bed & no rail with independence in order toimprove functional mobility and safety. Outcome: Ongoing Goal: Sit <-> Stand Description: Pt will perform sit to/from stand transfers with supervision with out an assistive device in order to improve functional mobility and safety. Outcome: Ongoing Lisa Balbuena PT, DPT License #: [id number] Pager #: [phone] [facility]12-29-2022 Note* Plan of Care - Mercy Segal RN - 07/23/2022 11:13 AM EST Patient remains Alert to self only with year and month periodically known. Attempted to stand patient to walk in shi and patient unable to stand more than 10 seconds without heavy assist from nursing staff. Will attempt later. Patient remains agitated toward staff with redirection possible. Problem: Patient Care Overview Goal: Plan of Care Review Outcome: Ongoing Goal: Individualization & Mutuality Outcome: Ongoing Goal: Discharge Needs Assessment Outcome: Ongoing Problem: Confusion, Acute (Adult) Goal: Identify Related Risk Factors and Signs and Symptoms Description: Related risk factors and signs and symptoms are identified upon initiation of Human Response Clinical Practice Guideline (CPG) Outcome: Ongoing Goal: Cognitive/Functional Impairments Minimized Description: Patient will demonstrate the desired outcomes by discharge/transition of care. Outcome: Ongoing [facility]12-29-2022 Note* Plan of Care - Mercy Segal RN - 07/23/2022 11:13 AM EST Patient remains Alert to self only with year and month periodically known. Attempted to stand patient to walk in shi and patient unable to stand more than 10 seconds without heavy assist from nursing staff. Will attempt later. Patient remains agitated toward staff with redirection possible. Problem: Patient Care Overview Goal: Plan of Care Review Outcome: Ongoing Goal: Individualization & Mutuality Outcome: Ongoing Goal: Discharge Needs Assessment Outcome: Ongoing Problem: Confusion, Acute (Adult) Goal: Identify Related Risk Factors and Signs and Symptoms Description: Related risk factors and signs and symptoms are identified upon initiation of Human Response Clinical Practice Guideline (CPG) Outcome: Ongoing Goal: Cognitive/Functional Impairments Minimized Description: Patient will demonstrate the desired outcomes by discharge/transition of care. Outcome: Ongoing [facility]12-28-2022 Note* Nursing Notes - Liz Landin RN - 07/22/2022 6:58 PM EST Patient's spouse requested for patient to be transferred to a hospital close to their home. Primaryteam made aware of patient's spouse request [facility]12-28-2022 Note* Nursing Notes - Liz Landin RN - 07/22/2022 6:58 PM EST Patient's spouse requested for patient to be transferred to a hospital close to their home. 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 Sitter at bedside. Patient ambulated in the hallway using walker and gait belt with significant unsteady gait and much weaker as compared to the day before. Toledo removed at 0830 per order with confirmation from primary team. Patient unable to void after 3attempts using restroom and urinal - bladder scanner showed >230ml urine retention. Urology was paged for recommendation since this RN is not comfortable to straight cath patient due to recent trauma from toledo cath placement. Per Saroj Sheriff MD, straight cath is not recommended and MD would stop by to place a new one with urojet. Primary team is aware of this event. Problem: Patient Care Overview Goal: Plan of Care Review 07/22/2022 1634 by Liz Landin RN Outcome: Ongoing 07/22/2022 1634 by Liz Landin RN Outcome: Ongoing Problem: Patient Care Overview Goal: Individualization & Mutuality 07/22/2022 1634 by Liz Landin RN Outcome: Ongoing 07/22/2022 1634 by Liz Landin RN Outcome: Ongoing Problem: Fall/Trauma/Injury Risk (Adult) Goal: Fall/Trauma/Injury Risk: Absence of Trauma/Injury/Falls Description: Patient will demonstrate the desired outcomes. Outcome: Ongoing Goal: Knowledge of risk factors/behavior modification Description: Knowledge of risk factors/behavior modification for fall/injury prevention Outcome: Ongoing Problem: Confusion, Acute (Adult) Goal: Identify Related Risk Factors and Signs and Symptoms Description: Related risk factors and signs and symptoms are identified upon initiation of Human Response Clinical Practice Guideline (CPG) Outcome: Ongoing Goal: Cognitive/Functional Impairments Minimized Description: Patient will demonstrate the desired outcomes by discharge/transition of care. Outcome: Ongoing Goal: Safety Description: Patient will demonstrate the desired outcomes by discharge/transition of care. Outcome: Ongoing Problem: Urine Elimination Impaired (Adult) Goal: Identify Related Risk Factors and Signs and Symptoms Description: Related risk factors and signs and symptoms are identified upon initiation of Human Response Clinical Practice Guideline (CPG) 07/22/2022 1634 by Liz Landin RN Outcome: Ongoing 07/22/2022 1634 by Liz Landin RN Outcome: Ongoing Goal: Effective Urinary Elimination Description: Patient will demonstrate the desired outcomes by discharge/transition of care. 07/22/2022 1634 by Liz Landin RN Outcome: Ongoing 07/22/2022 1634 by Liz Landin RN Outcome: Ongoing Goal: Effective Containment of Urine Description: Patient will demonstrate the desired outcomes by discharge/transition of care. 07/22/2022 1634 by Liz Landin RN Outcome: Ongoing 07/22/2022 1634 by Liz Landin RN Outcome: Ongoing Goal: Reduced Incontinence Episodes Description: Patient will demonstrate the desired outcomes by discharge/transition of care. 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 Sitter at bedside. Patient ambulated in the hallway using walker and gait belt with significant unsteady gait and much weaker as compared to the day before. [place] removed at 0830 per order with confirmation from primary team. Patient unable to void after 3attempts using restroom and urinal - bladder scanner showed >230ml urine retention. Urology was paged for recommendation since this RN is not comfortable to straight cath patient due to recent trauma from toledo cath placement. Per Saroj Sheriff MD, straight cath is not recommended and MD would stop by to place a new one with urojet. Primary team is aware of this event. Problem: Patient Care Overview Goal: Plan of Care Review 07/22/2022 1634 by Liz Landin RN Outcome: Ongoing 07/22/2022 1634 by Liz Landin RN Outcome: Ongoing Problem: Patient Care Overview Goal: Individualization & Mutuality 07/22/2022 1634 by Liz Landin RN Outcome: Ongoing 07/22/2022 1634 by Liz Landin RN Outcome: Ongoing Problem: Fall/Trauma/Injury Risk (Adult) Goal: Fall/Trauma/Injury Risk: Absence of Trauma/Injury/Falls Description: Patient will demonstrate the desired outcomes. Outcome: Ongoing Goal: Knowledge of risk factors/behavior modification Description: Knowledge of risk factors/behavior modification for fall/injury prevention Outcome: Ongoing Problem: Confusion, Acute (Adult) Goal: Identify Related Risk Factors and Signs and Symptoms Description: Related risk factors and signs and symptoms are identified upon initiation of Human Response Clinical Practice Guideline (CPG) Outcome: Ongoing Goal: Cognitive/Functional Impairments Minimized Description: Patient will demonstrate the desired outcomes by discharge/transition of care. Outcome: Ongoing Goal: Safety Description: Patient will demonstrate the desired outcomes by discharge/transition of care. Outcome: Ongoing Problem: Urine Elimination Impaired (Adult) Goal: Identify Related Risk Factors and Signs and Symptoms Description: Related risk factors and signs and symptoms are identified upon initiation of Human Response Clinical Practice Guideline (CPG) 07/22/2022 1634 by Liz Landin RN Outcome: Ongoing 07/22/2022 1634 by Liz Landin RN Outcome: Ongoing Goal: Effective Urinary Elimination Description: Patient will demonstrate the desired outcomes by discharge/transition of care. 07/22/2022 1634 by Liz Landin RN Outcome: Ongoing 07/22/2022 1634 by Liz Landin RN Outcome: Ongoing Goal: Effective Containment of Urine Description: Patient will demonstrate the desired outcomes by discharge/transition of care. 07/22/2022 1634 by Liz Landin RN Outcome: Ongoing 07/22/2022 1634 by Liz Landin RN Outcome: Ongoing Goal: Reduced Incontinence Episodes Description: Patient will demonstrate the desired outcomes by discharge/transition of care. 07/22/2022 1634 by Liz Landin RN Outcome: Ongoing 07/22/2022 1634 by Liz Landin RN Outcome: Ongoing [facility]12-28-2022 Note* Plan of Care - Toribio Sheriff MD - 07/22/2022 4:27 PM EST I was notified by Mr. Skinner's primary nurse that his catheter was removed this morning and he had not voided in >7 hours despite feeling the urge and trying, bladder scan >230. Toledo Placement Under sterile technique, an 18Fr coude toledo catheter was placed with the use of a Urojet. During insertion of toledo there was no resistance met. There was positive return of yellow urine (after about 1 min of waiting) before 10 mL of sterile water was used to inflate the toledo balloon. If required in the future, nursing should replace catheter with 18 Fr coude using good technique: Ensure patient is lying flat on the bed, and at a good height for the person placing catheter. Instill urojet directly into urethra, pull penis on stretch towards ceiling, insert catheter with coude tip pointing up to ceiling, and hub catheter all the way in the penis. Wait for urine return before inflating balloon. - Would continue flomax. - Can try another void trial in 1-2 days. Would remove catheter closer to 0600 and fill bladder prior to removing per instructions below to give a head start. *Please page urology resident or urology consult resident bone drier in [employer] if questions. The author of this note does not necessarily reflect the individual bone drier.* Toribio Sheriff MD Urology, PGY-3 #[id number] Instructions for filling the bladder with normal saline under gravity: (1) Get a Harley Syringe. (2) Take the plunger out of the harley syringe, and throw the plunger away. You are now left with an open-ended Harley syringe. You will use this as a funnel to connect to the end of the catheter. (3) Lie the patient flat in bed. (4) Remove the drain bag from the toledo catheter. (5) Attach the open ended harley (i.e. your funnel) to the end of the toledo catheter. (6) Hold the catheter and the funnel straight up in the air. (7) Slowly poor normal saline into the open end of the harley (i.e. your funnel) while still holding the toledo and funnel straight up in the air. (8) Allow the normal saline to drain into the bladder under gravity. As the bladder begins to get full, the rate at which the saline is draining from the harley will decrease and eventually stop. There is no specific amount with which to fill the bladder. The bladder is usually full when the salinestops draining from the funnel under gravity or the patient states he is full. This is typically about 200-300ml. (9) remove catheter after filling the bladder, leaving the saline behind. - When patient voids, please record voided volume and bladder scan for post-void residual (PVR). - Successful void trial is voided volume greater than PVR for two separate voids (over 150cc), absolute PVR < 150cc, or at least 3 decreasing [address] [facility] Work Phone: 1(587) 203-796412-28-2022 Note* Plan of Care - Toribio Sheriff MD - 07/22/2022 4:27 PM EST I was notified by Mr. Skinner's primary nurse that his catheter was removed this morning and he had not voided in >7 hours despite feeling the urge and trying, bladder scan >230. [place] Placement Under sterile technique, an 18Fr coude toledo catheter was placed with the use of a Urojet. During insertion of toledo there was no resistance met. There was positive return of yellow urine (after about 1 min of waiting) before 10 mL of sterile water was used to inflate the toledo balloon. If required in the future, nursing should replace catheter with 18 Fr coude using good technique: Ensure patient is lying flat on the bed, and at a good height for the person placing catheter. Instill urojet directly into urethra, pull penis on stretch towards ceiling, insert catheter with coude tip pointing up to ceiling, and hub catheter all the way in the penis. Wait for urine return before inflating balloon. - Would continue flomax. - Can try another void trial in 1-2 days. Would remove catheter closer to 0600 and fill bladder prior to removing per instructions below to give a head start. *Please page urology resident or urology consult resident bone drier in [employer] if questions. The author of this note does not necessarily reflect the individual bone drier.* Toribio Sheriff MD Urology, PGY-3 #[id number] Instructions for filling the bladder with normal saline under gravity: (1) Get a Harley Syringe. (2) Take the plunger out of the harley syringe, and throw the plunger away. You are now left with an open-ended Harley syringe. You will use this as a funnel to connect to the end of the catheter. (3) Lie the patient flat in bed. (4) Remove the drain bag from the toledo catheter. (5) Attach the open ended harley (i.e. your funnel) to the end of the toledo catheter. (6) Hold the catheter and the funnel straight up in the air. (7) Slowly poor normal saline into the open end of the harley (i.e. your funnel) while still holding the toledo and funnel straight up in the air. (8) Allow the normal saline to drain into the bladder under gravity. As the bladder begins to get full, the rate at which the saline is draining from the harley will decrease and eventually stop. There is no specific amount with which to fill the bladder. The bladder is usually full when the salinestops draining from the funnel under gravity or the patient states he is full. This is typically about 200-300ml. (9) remove catheter after filling the bladder, leaving the saline behind. - When patient voids, please record voided volume and bladder scan for post-void residual (PVR). - Successful void trial is voided volume greater than PVR for two separate voids (over 150cc), absolute PVR < 150cc, or at least 3 decreasing [address] [facility] Work Phone: 1([phone]) 601-939212-28-2022 Note* Plan of Care - Lata Rider RN - 07/22/2022 5:02 AM EST Problem: Confusion, Acute (Adult) Goal: Identify Related Risk Factors and Signs and Symptoms Description: Related risk factors and signs and symptoms are identified upon initiation of Human Response Clinical Practice Guideline (CPG) Outcome: Ongoing Flowsheets (Taken 07/22/2022 2102) Related Risk Factors (Acute Confusion): neurological impairment Signs and Symptoms (Acute Confusion): memory disturbed Note: Pt has spent the entire shift between a RASS of +1 to +3, getting out of the bed frequently, accusing staff of poisoning him, performing surgery on him against his will, and drugging him up. While he's usually oriented to the month and year, he has no sense of scope or situation, and sometimes thinks he's been here for 3 weeks, many months, or even years, and shows clear delirium. He was cursing at his on the phone at the start of the shift for refusing to take him home [employer]. He perseverates in conversation on the topics of chlorine bleach and room temperature, and while he can be reoriented, he will rapidly return to talking about one or the other. The room is always way too hot or freezing, and even within a two minute span he flips his claim. Even when staff is not engaging him, and trying to get him to settle and rest, he talks to himself almost without cessation, and tosses and turns in the bed continuously. With the exception of a briefly present headacheafter his SBP > 180, he states he has no pain. He's required multiple doses of interventional BP meds, in addition to the physician increasing hisoral meds and making a dose available this shift. He warranted a sitter a few hours into the shift,and has kept her very busy. The doctor just ordered a one-time dose of half a seroquel to see if itimproves his mentation. Close monitoring ongoing by all. [facility]12-28-2022 Note* Plan of Care - Lata Rider RN - 07/22/2022 5:02 AM EST Problem: Confusion, Acute (Adult) Goal: Identify Related Risk Factors and Signs and Symptoms Description: Related risk factors and signs and symptoms are identified upon initiation of Human Response Clinical Practice Guideline (CPG) Outcome: Ongoing Flowsheets (Taken 07/22/2022 0453) Related Risk Factors (Acute Confusion): neurological impairment Signs and Symptoms (Acute Confusion): memory disturbed Note: Pt has spent the entire shift between a RASS of +1 to +3, getting out of the bed frequently, accusing staff of poisoning him, performing surgery on him against his will, and drugging him up. While he's usually oriented to the month and year, he has no sense of scope or situation, and sometimes thinks he's been here for 3 weeks, many months, or even years, and shows clear delirium. He was cursing at his on the phone at the start of the shift for refusing to take him home [employer]. He perseverates in conversation on the topics of chlorine bleach and room temperature, and while he can be reoriented, he will rapidly return to talking about one or the other. The room is always way too hot or freezing, and even within a two minute span he flips his claim. Even when staff is not engaging him, and trying to get him to settle and rest, he talks to himself almost without cessation, and tosses and turns in the bed continuously. With the exception of a briefly present headacheafter his SBP > 180, he states he has no pain. He's required multiple doses of interventional BP meds, in addition to the physician increasing hisoral meds and making a dose available this shift. He warranted a sitter a few hours into the shift,and has kept her very busy. The doctor just ordered a one-time dose of half a seroquel to see if itimproves his mentation. Close monitoring ongoing by all. [facility]12-27-2022 Note* Plan of Nicole - Cathleen Manuel OT - 07/21/2022 9:35 AM EST Problem: OT - Balance Goal: Balance - Standing Description: Pt will perform 10 minutes of functional ADL task in standing with supervision and no major LOB to promote safety and improved balance required for self-care activities. Outcome: Ongoing Problem: OT - Endurance Goal: Endurance Functional Mobilty Around Home Description: Pt will complete distance needed for limited community mobility with supervision and good balance. Outcome: Ongoing Problem: OT - Cognition Goal: Cognition simple ADL Description: Pt will demonstrate improved cognition, completing simple ADL task for 10 minutes withno more than 2 cues required to maintain attention, for improved safety and success at discharge destination. Outcome: Progressing Toward Goal [facility]12-27-2022 Note* Plan of Nicole - Cathleen Manuel OT - 07/21/2022 9:35 AM EST Problem: OT - Balance Goal: Balance - Standing Description: Pt will perform 10 minutes of functional ADL task in standing with supervision and no major LOB to promote safety and improved balance required for self-care activities. Outcome: Ongoing Problem: OT - Endurance Goal: Endurance Functional Mobilty Around Home Description: Pt will complete distance needed for limited community mobility with supervision and good balance. Outcome: Ongoing Problem: OT - Cognition Goal: Cognition simple ADL Description: Pt will demonstrate improved cognition, completing simple ADL task for 10 minutes withno more than 2 cues required to maintain attention, for improved safety and success at discharge destination. Outcome: Progressing Toward Goal [facility]12-27-2022 Note* Plan of Care - Lisa Balbuena PT - 07/21/2022 8:35 AM EST Problem: PT - Balance/Coordination/Neuro Re-Education Goal: Standing Dynamic/Static Balance Description: Pt will perform standing balance tasks for 15 minutes with supervision with out an assistive device in order to improve functional mobility and safety with standing tasks. Outcome: Ongoing Problem: PT - Mobility Goal: Ambulation Description: Pt will ambulate 500 feet with out an assistive device with supervision to improve ability to navigate home environment. Outcome: Ongoing Problem: PT - Transfers Goal: Supine <-> Sit Description: Pt will perform bed mobility with flat bed & no rail with independence in order toimprove functional mobility and safety. Outcome: Ongoing Goal: Sit <-> Stand Description: Pt will perform sit to/from stand transfers with supervision with out an assistive device in order to improve functional mobility and safety. Outcome: Ongoing Lisa Balbuena PT, DPT License #: [id number] Pager #: [phone] [facility]12-27-2022 Note* Plan of Nicole - Lisa Balbuena PT - 07/21/2022 8:35 AM EST Problem: PT - Balance/Coordination/Neuro Re-Education Goal: Standing Dynamic/Static Balance Description: Pt will perform standing balance tasks for 15 minutes with supervision with out an assistive device in order to improve functional mobility and safety with standing tasks. Outcome: Ongoing Problem: PT - Mobility Goal: Ambulation Description: Pt will ambulate 500 feet with out an assistive device with supervision to improve ability to navigate home environment. Outcome: Ongoing Problem: PT - Transfers Goal: Supine <-> Sit Description: Pt will perform bed mobility with flat bed & no rail with independence in order toimprove functional mobility and safety. Outcome: Ongoing Goal: Sit <-> Stand Description: Pt will perform sit to/from stand transfers with supervision with out an assistive device in order to improve functional mobility and safety. Outcome: Ongoing Lisa Balbuena PT, DPT License #: [id number] Pager #: [phone] [facility]12-27-2022 Note* Plan of Care - Ever Antonio RN - 07/21/2022 7:28 AM EST No acute events overnight. Remains on RA. Is A&O to self, sometimes confused regarding time, place, and situation but mentation seems to be getting better with time. Pt is eager to get up and walk and wants to be DC ann-marie. Problem: Patient Care Overview Goal: Plan of Care Review Outcome: Ongoing Goal: Individualization & Mutuality Outcome: Ongoing Goal: Discharge Needs Assessment Outcome: Ongoing Goal: Interdisciplinary Rounds/Family Conf Outcome: Ongoing Problem: Stroke (Hemorrhagic) (Adult) Goal: Signs and Symptoms of Listed Potential Problems Will be Absent, Minimized or Managed (Stroke) Description: Signs and symptoms of listed potential problems will be absent, minimized or managed by discharge/transition of care (reference Stroke (Hemorrhagic) (Adult) CPG). Outcome: Ongoing Problem: Confusion, Acute (Adult) Goal: Identify Related Risk Factors and Signs and Symptoms Description: Related risk factors and signs and symptoms are identified upon initiation of Human Response Clinical Practice Guideline (CPG) Outcome: Ongoing Goal: Cognitive/Functional Impairments Minimized Description: Patient will demonstrate the desired outcomes by discharge/transition of care. Outcome: Ongoing Goal: Safety Description: Patient will demonstrate the desired outcomes by discharge/transition of care. Outcome: Ongoing Problem: Fall/Trauma/Injury Risk (Adult) Goal: Fall/Trauma/Injury Risk: Absence of Trauma/Injury/Falls Description: Patient will demonstrate the desired outcomes. Outcome: Ongoing [facility]12-27-2022 Note* Plan of Care - Ever Antonio RN - 07/21/2022 7:28 AM EST No acute events overnight. Remains on RA. Is A&O to self, sometimes confused regarding time, place, and situation but mentation seems to be getting better with time. Pt is eager to get up and walk and wants to be DC ann-marie. Problem: Patient Care Overview Goal: Plan of Care Review Outcome: Ongoing Goal: Individualization & Mutuality Outcome: Ongoing Goal: Discharge Needs Assessment Outcome: Ongoing Goal: Interdisciplinary Rounds/Family Conf Outcome: Ongoing Problem: Stroke (Hemorrhagic) (Adult) Goal: Signs and Symptoms of Listed Potential Problems Will be Absent, Minimized or Managed (Stroke) Description: Signs and symptoms of listed potential problems will be absent, minimized or managed by discharge/transition of care (reference Stroke (Hemorrhagic) (Adult) CPG). Outcome: Ongoing Problem: Confusion, Acute (Adult) Goal: Identify Related Risk Factors and Signs and Symptoms Description: Related risk factors and signs and symptoms are identified upon initiation of Human Response Clinical Practice Guideline (CPG) Outcome: Ongoing Goal: Cognitive/Functional Impairments Minimized Description: Patient will demonstrate the desired outcomes by discharge/transition of care. Outcome: Ongoing Goal: Safety Description: Patient will demonstrate the desired outcomes by discharge/transition of care. Outcome: Ongoing Problem: Fall/Trauma/Injury Risk (Adult) Goal: Fall/Trauma/Injury Risk: Absence of Trauma/Injury/Falls Description: Patient will demonstrate the desired outcomes. Outcome: Ongoing [facility]12-25-2022 Note* Plan of Care - Zaida Leo RN - 07/19/2022 6:27 PM EST Plan of care reviewed with patient. Problem: Patient Care Overview Goal: Plan of Care Review Outcome: Ongoing Goal: Individualization & Mutuality Outcome: Ongoing Goal: Discharge Needs Assessment Outcome: Ongoing Goal: Interdisciplinary Rounds/Family Conf Outcome: Ongoing Problem: Stroke (Hemorrhagic) (Adult) Goal: Signs and Symptoms of Listed Potential Problems Will be Absent, Minimized or Managed (Stroke) Description: Signs and symptoms of listed potential problems will be absent, minimized or managed by discharge/transition of care (reference Stroke (Hemorrhagic) (Adult) CPG). Outcome: Ongoing [facility]12-25-2022 Note* Plan of Care - Zaida Leo RN - 07/19/2022 6:27 PM EST Plan of care reviewed with patient. Problem: Patient Care Overview Goal: Plan of Care Review Outcome: Ongoing Goal: Individualization & Mutuality Outcome: Ongoing Goal: Discharge Needs Assessment Outcome: Ongoing Goal: Interdisciplinary Rounds/Family Conf Outcome: Ongoing Problem: Stroke (Hemorrhagic) (Adult) Goal: Signs and Symptoms of Listed Potential Problems Will be Absent, Minimized or Managed (Stroke) Description: Signs and symptoms of listed potential problems will be absent, minimized or managed by discharge/transition of care (reference Stroke (Hemorrhagic) (Adult) CPG). Outcome: Ongoing [facility]12-25-2022 Note* Plan of Care - Megan Perea MD - 07/19/2022 1:59 PM EST BRIEF NEUROVASCULAR NOTE Called to bedside for mental status change. Was more alert this morning and now more somnolent requiring continuous stimulation to maintain wakeful state. Went to bedside and NIHSS was 13 for encephalopathy, no focal deficits. Able to tell me he does not have headache. Reviewed medications and onlyadded medication was aspirin. Had fever earlier on and UA with possible UTI. CXR appears clear, BCX drawn. He is on keflex for UTI. VSS stable now. Acute encephalopathy possibly related with UTI however will rule out any serious intracranial pathology -CTH now -can consider broadening ATB if persistent fever or vital sign instability Megan Perea MD PGY 4 Neurology [facility] Work Phone: [phone]) 765-824912-25-2022 Note* Plan of Care - Megan Perea MD - 07/19/2022 1:59 PM EST BRIEF NEUROVASCULAR NOTE Called to bedside for mental status change. Was more alert this morning and now more somnolent requiring continuous stimulation to maintain wakeful state. Went to bedside and NIHSS was 13 for encephalopathy, no focal deficits. Able to tell me he does not have headache. Reviewed medications and onlyadded medication was aspirin. Had fever earlier on and UA with possible UTI. CXR appears clear, BCX drawn. He is on keflex for UTI. VSS stable now. Acute encephalopathy possibly related with UTI however will rule out any serious intracranial pathology -CTH now -can consider broadening ATB if persistent fever or vital sign instability Megan Perea MD PGY [address] [facility]12-24-2022 Note* Plan of Care - Ej Funez MD - 07/18/2022 11:14 AM EST Neurosurgery Update: Consulted for bilateral IVH. DCA performed on 07/14 revealing advanced bilateral moyamoya changes. Patient with hydrocephalus noted 07/16, resolved without intervention. No further neurosurgical intervention at this time. - Please have patient follow up with Dr. Ly in [address] head to discuss possible revascularization - Neurosurgery will sign-off. Please call with questions. Ej Funez MD, Neurosurgery NS2 ([id number]) [facility] Work Phone: [phone]) 809-270112-24-2022 Note* Plan of Care - Ej Funez MD - 07/18/2022 11:14 AM EST Neurosurgery Update: Consulted for bilateral IVH. DCA performed on 07/14 revealing advanced bilateral moyamoya changes. Patient with hydrocephalus noted 07/16, resolved without intervention. No further neurosurgical intervention at this time. - Please have patient follow up with Dr. Ly in [address] head to discuss possible revascularization - Neurosurgery will sign-off. Please call with questions. Ej Funez MD, Neurosurgery NS2 ([id number]) [facility] Work Phone: [phone]) 460-576712-23-2022 Note* Plan of Care - MIGUEL A Rubio - 07/17/2022 2:53 PM EST Problem: MICROBIOLOGICAL LAB TECHNICIAN - Cognition Goal: Memory Goal 1 Description: Patient will utilize compensatory memory strategies to teach back at least 3 facts related to their hospitalization/POC across a 5 minute delay across at least 2 consecutive sessions to support generalization of strategy use and pt's self-advocacy, min cues by discharge. Outcome: Ongoing Goal: Problem Solving Goal 1 Description: Patient will complete basic problem solving tasks in at least 3/5 of opportunities in their immediate environment to support self-advocacy and independence, given min cues across 2 consecutive sessions by discharge. Outcome: Ongoing Goal: Meticognition Goal 1 Description: Patient will identify at least 3 deficits related to medical condition and how deficits will impact ability to return home with min cues across 2-3 sessions to improve insight and safety. Outcome: Ongoing Goal: Orientation Goal Description: Patient will recall/implement use of orientation strategies, given min -no cues, to demonstrate improved awareness and insight as measured by achieving a 27/30 on The Orientation Log, across 1-2 sessions. Outcome: Ongoing [facility]12-23-2022 Note* Plan of Care - MIGUEL A Rubio - 07/17/2022 2:53 PM EST Problem: MICROBIOLOGICAL LAB TECHNICIAN - Cognition Goal: Memory Goal 1 Description: Patient will utilize compensatory memory strategies to teach back at least 3 facts related to their hospitalization/POC across a 5 minute delay across at least 2 consecutive sessions to support generalization of strategy use and pt's self-advocacy, min cues by discharge. Outcome: Ongoing Goal: Problem Solving Goal 1 Description: Patient will complete basic problem solving tasks in at least 3/5 of opportunities in their immediate environment to support self-advocacy and independence, given min cues across 2 consecutive sessions by discharge. Outcome: Ongoing Goal: Meticognition Goal 1 Description: Patient will identify at least 3 deficits related to medical condition and how deficits will impact ability to return home with min cues across 2-3 sessions to improve insight and safety. Outcome: Ongoing Goal: Orientation Goal Description: Patient will recall/implement use of orientation strategies, given min -no cues, to demonstrate improved awareness and insight as measured by achieving a 27/30 on The Orientation Log, across 1-2 sessions. Outcome: Ongoing [facility]12-22-2022 Note* Significant Event - RADHA Mora - 07/16/2022 6:05 PM EST Notified by RN that pt with mental status change. This MARKETING SALES SUPERVISOR to bedside. Pt nonverbal, no commands butis moving all extremities purposefully. Gaze midline but will not track. Concern for worsening hydrocephalus vs bleed -stat CTH obtained, reviewed with worsening hydrocephalus noted. Dr Ram called and made aware of pt exam and CTH changes with request for EVD. Dr. Marquez made aware and agrees with this plan. -Family at bedside and updated regarding events and need for evd 1840 Dr. Ram to bedside. During his exam, pt awoke. FC x4, drowsy but able to state name. Given improved exam, NS plans to hold on EVD at this time and continue with close monitoring. Family agrees to EVD if needed overnight. Plan CTH in am Added q [address] Marquez updated on above and agrees with this plan. Report to night team who will cont to monitor pt closely Razia Andrade CNP [facility]12-22-2022 Note* Significant Event - RADHA Mora - 07/16/2022 6:05 PM EST Notified by RN that pt with mental status change. This MARKETING SALES SUPERVISOR to bedside. Pt nonverbal, no commands butis moving all extremities purposefully. Gaze midline but will not track. Concern for worsening hydrocephalus vs bleed -stat CTH obtained, reviewed with worsening hydrocephalus noted. Dr Ram called and made aware of pt exam and CTH changes with request for EVD. Dr. Marquez made aware and agrees with this plan. -Family at bedside and updated regarding events and need for evd 1840 Dr. Ram to bedside. During his exam, pt awoke. FC x4, drowsy but able to state name. Given improved exam, NS plans to hold on EVD at this time and continue with close monitoring. Family agrees to EVD if needed overnight. Plan CTH in am Added q [address] Marquez updated on above and agrees with this plan. Report to night team who will cont to monitor pt closely Razia Andrade CNP [facility]12-22-2022 Note* Plan of Care - Dory Venegas RN - 07/16/2022 5:25 PM EST Problem: Patient Care Overview Goal: Plan of Care Review Outcome: Ongoing Flowsheets (Taken 07/16/2022 1724) Outcome Summary: Marco remains in the ICU for close monitoring of neuro status, pt stable this shift Marco has good PO intake, MIVF stopped today SBP goal <140, pt needing PRN medications to remain within goal Goal: Individualization & Mutuality Outcome: Ongoing Goal: Discharge Needs Assessment Outcome: Ongoing Goal: Interdisciplinary Rounds/Family Conf Outcome: Ongoing Problem: Stroke (Hemorrhagic) (Adult) Goal: Signs and Symptoms of Listed Potential Problems Will be Absent, Minimized or Managed (Stroke) Description: Signs and symptoms of listed potential problems will be absent, minimized or managed by discharge/transition of care (reference Stroke (Hemorrhagic) (Adult) CPG). Outcome: Ongoing Problem: Confusion, Acute (Adult) Goal: Identify Related Risk Factors and Signs and Symptoms Description: Related risk factors and signs and symptoms are identified upon initiation of Human Response Clinical Practice Guideline (CPG) Outcome: Ongoing Goal: Cognitive/Functional Impairments Minimized Description: Patient will demonstrate the desired outcomes by discharge/transition of care. Outcome: Ongoing Goal: Safety Description: Patient will demonstrate the desired outcomes by discharge/transition of care. Outcome: Ongoing Problem: Fall/Trauma/Injury Risk (Adult) Goal: Fall/Trauma/Injury Risk: Absence of Trauma/Injury/Falls Description: Patient will demonstrate the desired outcomes. Outcome: Ongoing [facility]12-22-2022 Note* Plan of Care - Dory Venegas RN - 07/16/2022 5:25 PM EST Problem: Patient Care Overview Goal: Plan of Care Review Outcome: Ongoing Flowsheets (Taken 07/16/2022 1724) Outcome Summary: Marco remains in the ICU for close monitoring of neuro status, pt stable this shift Marco has good PO intake, MIVF stopped today SBP goal <140, pt needing PRN medications to remain within goal Goal: Individualization & Mutuality Outcome: Ongoing Goal: Discharge Needs Assessment Outcome: Ongoing Goal: Interdisciplinary Rounds/Family Conf Outcome: Ongoing Problem: Stroke (Hemorrhagic) (Adult) Goal: Signs and Symptoms of Listed Potential Problems Will be Absent, Minimized or Managed (Stroke) Description: Signs and symptoms of listed potential problems will be absent, minimized or managed by discharge/transition of care (reference Stroke (Hemorrhagic) (Adult) CPG). Outcome: Ongoing Problem: Confusion, Acute (Adult) Goal: Identify Related Risk Factors and Signs and Symptoms Description: Related risk factors and signs and symptoms are identified upon initiation of Human Response Clinical Practice Guideline (CPG) Outcome: Ongoing Goal: Cognitive/Functional Impairments Minimized Description: Patient will demonstrate the desired outcomes by discharge/transition of care. Outcome: Ongoing Goal: Safety Description: Patient will demonstrate the desired outcomes by discharge/transition of care. Outcome: Ongoing Problem: Fall/Trauma/Injury Risk (Adult) Goal: Fall/Trauma/Injury Risk: Absence of Trauma/Injury/Falls Description: Patient will demonstrate the desired outcomes. Outcome: Ongoing [facility]12-22-2022 Note* Plan of Care - Gumaro Pastrana MD - 07/16/2022 3:18 PM EST Neurosurgery Update: Consulted for bilateral IVH. Imaging reviewed which revealed stable ventricles and hemorrhage. No neurosurgical intervention at this time. - Please have patient follow up with Dr. Ly in 4 weeks to discuss elective revascularization - Neurosurgery will sign-off. Please call with questions. Gumaro Pastrana MD, Neurosurgery NS2 ([id number]) [facility] Work Phone: [phone]) 800-858712-22-2022 Note* Plan of Care - Gumaro Pastrana MD - 07/16/2022 3:18 PM EST Neurosurgery Update: Consulted for bilateral IVH. Imaging reviewed which revealed stable ventricles and hemorrhage. No neurosurgical intervention at this time. - Please have patient follow up with Dr. Ly in 4 weeks to discuss elective revascularization - Neurosurgery will sign-off. Please call with questions. Gumaro Pastrana MD, Neurosurgery NS2 ([id number]) [facility] Work Phone: [phone]) 728-303212-20-2022 Note* Plan of Care - Tejas Segal RN - 07/14/2022 10:11 PM EST Problem: Patient Care Overview Goal: Plan of Care Review Outcome: Ongoing Goal: Individualization & Mutuality Outcome: Ongoing Goal: Discharge Needs Assessment Outcome: Ongoing Goal: Interdisciplinary Rounds/Family Conf Outcome: Ongoing Problem: Stroke (Hemorrhagic) (Adult) Goal: Signs and Symptoms of Listed Potential Problems Will be Absent, Minimized or Managed (Stroke) Description: Signs and symptoms of listed potential problems will be absent, minimized or managed by discharge/transition of care (reference Stroke (Hemorrhagic) (Adult) CPG). Outcome: Ongoing [facility]12-20-2022 Note* Plan of Care - Tejas Segal RN - 07/14/2022 10:11 PM EST Problem: Patient Care Overview Goal: Plan of Care Review Outcome: Ongoing Goal: Individualization & Mutuality Outcome: Ongoing Goal: Discharge Needs Assessment Outcome: Ongoing Goal: Interdisciplinary Rounds/Family Conf Outcome: Ongoing Problem: Stroke (Hemorrhagic) (Adult) Goal: Signs and Symptoms of Listed Potential Problems Will be Absent, Minimized or Managed (Stroke) Description: Signs and symptoms of listed potential problems will be absent, minimized or managed by discharge/transition of care (reference Stroke (Hemorrhagic) (Adult) CPG). Outcome: Ongoing [facility]12-20-2022 Note* Plan of Care - Sherley Carpio RN - 07/14/2022 4:31 PM EST Multidisciplinary rounds complete. Mr. Skinner has been alert and oriented to self. He passed his sherry swallow. Pt/OT had him up and walking the shi. He went to OR for cerebral angiogram. Post procedure check tool was completed after he returned from the OR. Problem: Patient Care Overview Goal: Plan of Care Review Outcome: Ongoing Goal: Individualization & Mutuality Outcome: Ongoing Goal: Discharge Needs Assessment Outcome: Ongoing Goal: Interdisciplinary Rounds/Family Conf Outcome: Ongoing Problem: Stroke (Hemorrhagic) (Adult) Goal: Signs and Symptoms of Listed Potential Problems Will be Absent, Minimized or Managed (Stroke) Description: Signs and symptoms of listed potential problems will be absent, minimized or managed by discharge/transition of care (reference Stroke (Hemorrhagic) (Adult) CPG). Outcome: Ongoing Problem: OT - Dressing Goal: Lower Body Dressing Description: Pt will complete LE dressing tasks with modified independence for improved ability to complete self-care activities. Outcome: Ongoing Problem: OT - ADLs Goal: Toileting Description: Pt will complete toileting task including clothing management with modified independence for improved ability to safely complete self-care activities. Outcome: Ongoing Problem: OT - Cognition Goal: Cognition simple ADL Description: Pt will demonstrate improved cognition, completing simple ADL task for 10 minutes withno more than 2 cues required to maintain attention, for improved safety and success at discharge destination. Outcome: Ongoing Problem: OT - Balance Goal: Balance - Standing Description: Pt will perform 10 minutes of functional ADL task in standing with supervision and no major LOB to promote safety and improved balance required for self-care activities. Outcome: Ongoing Problem: OT - Endurance Goal: Endurance Functional Mobilty Around Home Description: Pt will complete distance needed for limited community mobility with supervision and good balance. Outcome: Ongoing Problem: OT - Other Goal: Energy Conservation with ADLs Description: Pt will independently utilize at least 3 energy conservation/pacing strategies during ADL completion to promote success and safety during daily routine. Outcome: Ongoing Problem: PT - Balance/Coordination/Neuro Re-Education Goal: Standing Dynamic/Static Balance Description: Pt will perform standing balance tasks for 15 minutes with supervision with out an assistive device in order to improve functional mobility and safety with standing tasks. Outcome: Ongoing Problem: PT - Mobility Goal: Ambulation Description: Pt will ambulate 500 feet with out an assistive device with supervision to improve ability to navigate home environment. Outcome: Ongoing Goal: Stairs Description: Pt will ascend/descend 12 stairs with railings with supervision with out an assistive device to improve ability to perform functional mobility necessary in recommended discharge environment. Outcome: Ongoing Problem: PT - Transfers Goal: Supine <-> Sit Description: Pt will perform bed mobility with flat bed & no rail with independence in order toimprove functional mobility and safety. Outcome: Ongoing Goal: Sit <-> Stand Description: Pt will perform sit to/from stand transfers with supervision with out an assistive device in order to improve functional mobility and safety. Outcome: Ongoing [facility]12-20-2022 Note* Plan of Care - Sherley Carpio RN - 07/14/2022 4:31 PM EST Multidisciplinary rounds complete. Mr. Skinner has been alert and oriented to self. He passed his sherry swallow. Pt/OT had him up and walking the shi. He went to OR for cerebral angiogram. Post procedure check tool was completed after he returned from the OR. Problem: Patient Care Overview Goal: Plan of Care Review Outcome: Ongoing Goal: Individualization & Mutuality Outcome: Ongoing Goal: Discharge Needs Assessment Outcome: Ongoing Goal: Interdisciplinary Rounds/Family Conf Outcome: Ongoing Problem: Stroke (Hemorrhagic) (Adult) Goal: Signs and Symptoms of Listed Potential Problems Will be Absent, Minimized or Managed (Stroke) Description: Signs and symptoms of listed potential problems will be absent, minimized or managed by discharge/transition of care (reference Stroke (Hemorrhagic) (Adult) CPG). Outcome: Ongoing Problem: OT - Dressing Goal: Lower Body Dressing Description: Pt will complete LE dressing tasks with modified independence for improved ability to complete self-care activities. Outcome: Ongoing Problem: OT - ADLs Goal: Toileting Description: Pt will complete toileting task including clothing management with modified independence for improved ability to safely complete self-care activities. Outcome: Ongoing Problem: OT - Cognition Goal: Cognition simple ADL Description: Pt will demonstrate improved cognition, completing simple ADL task for 10 minutes withno more than 2 cues required to maintain attention, for improved safety and success at discharge destination. Outcome: Ongoing Problem: OT - Balance Goal: Balance - Standing Description: Pt will perform 10 minutes of functional ADL task in standing with supervision and no major LOB to promote safety and improved balance required for self-care activities. Outcome: Ongoing Problem: OT - Endurance Goal: Endurance Functional Mobilty Around Home Description: Pt will complete distance needed for limited community mobility with supervision and good balance. Outcome: Ongoing Problem: OT - Other Goal: Energy Conservation with ADLs Description: Pt will independently utilize at least 3 energy conservation/pacing strategies during ADL completion to promote success and safety during daily routine. Outcome: Ongoing Problem: PT - Balance/Coordination/Neuro Re-Education Goal: Standing Dynamic/Static Balance Description: Pt will perform standing balance tasks for 15 minutes with supervision with out an assistive device in order to improve functional mobility and safety with standing tasks. Outcome: Ongoing Problem: PT - Mobility Goal: Ambulation Description: Pt will ambulate 500 feet with out an assistive device with supervision to improve ability to navigate home environment. Outcome: Ongoing Goal: Stairs Description: Pt will ascend/descend 12 stairs with railings with supervision with out an assistive device to improve ability to perform functional mobility necessary in recommended discharge environment. Outcome: Ongoing Problem: PT - Transfers Goal: Supine <-> Sit Description: Pt will perform bed mobility with flat bed & no rail with independence in order toimprove functional mobility and safety. Outcome: Ongoing Goal: Sit <-> Stand Description: Pt will perform sit to/from stand transfers with supervision with out an assistive device in order to improve functional mobility and safety. Outcome: Ongoing [facility]12-20-2022 Note* Plan of Care - Cathleen Manuel OT - 07/14/2022 1:39 PM EST Problem: OT - Dressing Goal: Lower Body Dressing Description: Pt will complete LE dressing tasks with modified independence for improved ability to complete self-care activities. Outcome: Ongoing Problem: OT - ADLs Goal: Toileting Description: Pt will complete toileting task including clothing management with modified independence for improved ability to safely complete self-care activities. Outcome: Ongoing Problem: OT - Cognition Goal: Cognition simple ADL Description: Pt will demonstrate improved cognition, completing simple ADL task for 10 minutes withno more than 2 cues required to maintain attention, for improved safety and success at discharge destination. Outcome: Ongoing Problem: OT - Balance Goal: Balance - Standing Description: Pt will perform 10 minutes of functional ADL task in standing with supervision and no major LOB to promote safety and improved balance required for self-care activities. Outcome: Ongoing Problem: OT - Endurance Goal: Endurance Functional Mobilty Around Home Description: Pt will complete distance needed for limited community mobility with supervision and good balance. Outcome: Ongoing Problem: OT - Other Goal: Energy Conservation with ADLs Description: Pt will independently utilize at least 3 energy conservation/pacing strategies during ADL completion to promote success and safety during daily routine. Outcome: Ongoing [facility]12-20-2022 Note* Plan of Care - Cathleen Manuel OT - 07/14/2022 1:39 PM EST Problem: OT - Dressing Goal: Lower Body Dressing Description: Pt will complete LE dressing tasks with modified independence for improved ability to complete self-care activities. Outcome: Ongoing Problem: OT - ADLs Goal: Toileting Description: Pt will complete toileting task including clothing management with modified independence for improved ability to safely complete self-care activities. Outcome: Ongoing Problem: OT - Cognition Goal: Cognition simple ADL Description: Pt will demonstrate improved cognition, completing simple ADL task for 10 minutes withno more than 2 cues required to maintain attention, for improved safety and success at discharge destination. Outcome: Ongoing Problem: OT - Balance Goal: Balance - Standing Description: Pt will perform 10 minutes of functional ADL task in standing with supervision and no major LOB to promote safety and improved balance required for self-care activities. Outcome: Ongoing Problem: OT - Endurance Goal: Endurance Functional Mobilty Around Home Description: Pt will complete distance needed for limited community mobility with supervision and good balance. Outcome: Ongoing Problem: OT - Other Goal: Energy Conservation with ADLs Description: Pt will independently utilize at least 3 energy conservation/pacing strategies during ADL completion to promote success and safety during daily routine. Outcome: Ongoing [facility]12-20-2022 Note* Treatment Plan - Andrea Baker APRN-ZACK - 07/14/2022 12:24 PM EST NEUROCRITICAL CARE OR SIGNOUT NOTE Admitting Diagnosis: No admission diagnoses are documented for this encounter. Procedure Completed: Procedure(s): DIAGNOSTIC CEREBRAL ANGIOGRAM Intraoperative Interventions: - EBL: Minimal - Fluids given: crystalloid - Complications: none - Hemodynamic issues? No - Case length: 1 Hr 20 Min 56 Sec Neurologic Exam: Opens eyes spontaneously. EOMI. 3 mm PERRL. Clear speech. Tongue midline. AOX4. Follows commands [id number]. Denies numbness or tingling. Right groin site c/d/i. Femoral pulses 2+ bilaterally. Postop Plan: - Diagnostics: STAT CT H - Flat x 2 hours - Goal SBP <160, MAP >65 - Family updated by CHIOMA 07/14/22 12:24 PM. [facility] Attending Physician, Dr. Marquez. RADHA Paulson 07/14/22 Service Pager: [phone] 12:24 PM [facility] Work Phone: 1(360) 484-488212-20-2022 Note* Treatment Plan - RADHA Paulson - 07/14/2022 12:24 PM EST NEUROCRITICAL CARE OR SIGNOUT NOTE Admitting Diagnosis: No admission diagnoses are documented for this encounter. Procedure Completed: Procedure(s): DIAGNOSTIC CEREBRAL ANGIOGRAM Intraoperative Interventions: - EBL: Minimal - Fluids given: crystalloid - Complications: none - Hemodynamic issues? No - Case length: 1 Hr 20 Min 56 Sec Neurologic Exam: Opens eyes spontaneously. EOMI. 3 mm PERRL. Clear speech. Tongue midline. AOX4. Follows commands [id number]. Denies numbness or tingling. Right groin site c/d/i. Femoral pulses 2+ bilaterally. Postop Plan: - Diagnostics: STAT CT H - Flat x 2 hours - Goal SBP <160, MAP >65 - Family updated by CHIOMA 07/14/22 12:24 PM. [facility] with [facility] Attending Physician, Dr. Marquez. RADHA Paulson 07/14/22 Service Pager: [phone] 12:[address] [facility] Work Phone: [phone]) 514-121312-20-2022 Nurse Surgical operation note* Albert Causey RN - 07/14/2022 12:10 PM EST Pt. Transported back to [facility]12-20-2022 Nurse Note* Albert Causey RN - 07/14/2022 12:10 PM EST Pt. Transported back to [facility]* Albert Causey RN - 07/14/2022 12:10 PM EST Pt. Transported back to 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 and posterior circulation SURGEON Surgeon(s) and Role: * Robby Ly MD, PhD - Primary * Nitesh Velazquez MD - Fellow ANESTHESIOLOGIST Anesthesiologist: Sachin Soni MD SURGERY NURSE: Analisa Funk APRN-SURGERY NURSE SURGICAL STAFF Technology Intern: Albert Causey RN Mill Roll Operator: Dolores Arango COMPLICATIONS None ESTIMATED BLOOD LOSS Minimal SPECIMENS No specimen sent * No specimens in log * Nitesh Velazquez MD July 14, 2022 12:05 PM [facility] Work Phone: 1([phone]) 625-735812-20-2022 Note* Brief Op Note - Nitesh Velazquez MD - 07/14/2022 12:05 PM EST Love Skinner ([id number]) PRE OPERATIVE DIAGNOSIS 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] POST OPERATIVE DIAGNOSIS Post-Op Diagnosis Codes: * 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] PROCEDURE PERFORMED Procedure(s) (LRB): DIAGNOSTIC CEREBRAL ANGIOGRAM (N/A) PRIMARY CLOSURE N/A INTRAOPERATIVE FINDINGS 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 and posterior circulation SURGEON Surgeon(s) and Role: * Robby Ly MD, PhD - Primary * Nitesh Velazquez MD - Fellow ANESTHESIOLOGIST Anesthesiologist: Sachin Soni MD SURGERY NURSE: Analisa Funk APRN-SURGERY NURSE SURGICAL STAFF Technology Intern: Albert Causey RN Mill Roll Operator: Dolores Arango COMPLICATIONS None ESTIMATED BLOOD LOSS Minimal SPECIMENS No specimen sent * No specimens in log * Nitesh Velazquez MD July 14, 2022 12:05 PM [facility] Work Phone: 1([phone]) 270-686812-20-2022 Note* Op Note - Robby Ly MD, PhD - 07/14/2022 12:00 PM EST Operative Report DATE PERFORMED: 07/14/2022 PREOPERATIVE DIAGNOSIS: Intraventricular hemorrhage. POSTOPERATIVE DIAGNOSIS: Intraventricular hemorrhage. PROCEDURE: Diagnostic cerebral angiography. SURGEON(S): Robby Ly MD, PhD. ANESTHESIA: Monitored anesthesia care. COMPLICATIONS: None. SPECIMENS: None. BRIEF CLINICAL HISTORY: Mr. Skinner is a very pleasant 67-year-old man who was admitted yesterday with spontaneous intraventricular hemorrhage. His noninvasive imaging was concerning for moyamoya changes and after discussion with the patient and his , we made decision to proceed with diagnostic angiography. PROCEDURE IN DETAIL: After obtaining written informed consent, the patient was brought to the operating room and positioned supine on the angio table. All pressure points were padded. After induction of monitored anesthesia care, the skin of the right groin was cleaned, prepped, and draped in usual fashion. A time-out was performed. Percutaneous access was obtained the right common femoral artery and a 5- Singaporean introducer sheath placed. A limited right common femoral artery arteriogram was performed. Next, a 5-Singaporean diagnostic catheter advanced over a Glidewire into the aortic arch. The right vertebral artery was catheterized. AP, and oblique images of the posterior circulation were obtained. The catheter was withdrawn to the aortic arch and the right common carotid artery catheterized. AP, lateral, and oblique images of the cervical carotid arteries were obtained. AP, lateral, and oblique images of the cranial circulation were obtained. The catheter was withdrawn to aortic arch and the left common carotid artery catheterized. AP and lateral images of the cervical carotid arteries were obtained. AP, lateral, and oblique images of the cranial circulation were obtained. The catheter was withdrawn to aortic arch and the left vertebral artery catheterized. AP and lateral images of the posterior circulation were obtained. The catheter was removed. The introducer sheath was removed. Hemostasis obtained with a Mynx device. A sterile dressing was applied. Mr. Skinner was awoken from sedation and found to be at his neurologic baseline. He was transferred to Recovery in satisfactory condition. ANGIOGRAPHIC FINDINGS: The limited right common femoral artery arteriogram demonstrates normal puncture site anatomy. The right vertebral artery demonstrates antegrade flow in the posterior circulation. The vertebrals are codominant. There are patent bilateral posterior communicating arteries with some reconstitution of the anterior circulation. There is additionally some pial reconstitution to the posterior cerebral artery of the anterior and middle cerebral artery territories. The capillary and venous phases are unremarkable. The right common carotid arteriogram demonstrates antegrade flow in the cervical carotid arteries. There really is no significant flow within the right internal carotid artery. The capillary and venous phases are unremarkable. The right common carotid cerebral angiogram demonstrates antegrade flow within the extracranial circulation. There is a prominent superficial temporal artery. There is some reconstitution of the intracranial circulation from retrograde filling from the ophthalmic artery. The capillary and venous phases are unremarkable. The left common carotid arteriogram demonstrates antegrade flow in the cervical carotid arteries. Again seen is no significant flow within the internal carotid artery in the neck. The capillary and venous phases are unremarkable. The left common carotid cerebral angiogram demonstrates the antegrade flow within the extracranial circulation. There is a smaller superficial temporal artery then on the right side. There is some scant reconstitution of the left anterior circulation through retrograde flow from the ophthalmic artery. The capillary and venous phases are unremarkable. The left vertebral arteriogram demonstrates antegrade flow in the posterior circulation. The vertebrals are codominant. Again seen, there are patent posterior communicating arteries and pial collaterals reconstituting the anterior circulation. The capillary and venous phases are unremarkable. IMPRESSION: The patient has advanced bilateral moyamoya changes. He has a prominent superficial temporal arteries bilaterally. He could be considered a candidate for revascularization after he recovers from the spontaneous hemorrhage. At the very least, he needs to be on aspirin after the intraventricular hemorrhage has resolved. Dictated By: Robby Ly MD, PhD Robby Ly MD, PhD ATTENDING CJP/MedQ JOB: [id number] DOC: [id number] [facility] Work Phone: 1([phone]) [phone] Note* Op Note - Robby Ly MD, PhD - 07/14/2022 12:00 PM EST Operative Report DATE PERFORMED: 07/14/2022 PREOPERATIVE DIAGNOSIS: Intraventricular hemorrhage. POSTOPERATIVE DIAGNOSIS: Intraventricular hemorrhage. PROCEDURE: Diagnostic cerebral angiography. SURGEON(S): Robby Ly MD, PhD. ANESTHESIA: Monitored anesthesia care. COMPLICATIONS: None. SPECIMENS: None. BRIEF CLINICAL HISTORY: Mr. Skinner is a very pleasant 67-year-old man who was admitted yesterday with spontaneous intraventricular hemorrhage. His noninvasive imaging was concerning for moyamoya changes and after discussion with the patient and his , we made decision to proceed with diagnostic angiography. PROCEDURE IN DETAIL: After obtaining written informed consent, the patient was brought to the operating room and positioned supine on the angio table. All pressure points were padded. After induction of monitored anesthesia care, the skin of the right groin was cleaned, prepped, and draped in usual fashion. A time-out was performed. Percutaneous access was obtained the right common femoral artery and a 5- Singaporean introducer sheath placed. A limited right common femoral artery arteriogram was performed. Next, a 5-Singaporean diagnostic catheter advanced over a Glidewire into the aortic arch. The right vertebral artery was catheterized. AP, and oblique images of the posterior circulation were obtained. The catheter was withdrawn to the aortic arch and the right common carotid artery catheterized. AP, lateral, and oblique images of the cervical carotid arteries were obtained. AP, lateral, and oblique images of the cranial circulation were obtained. The catheter was withdrawn to aortic arch and the left common carotid artery catheterized. AP and lateral images of the cervical carotid arteries were obtained. AP, lateral, and oblique images of the cranial circulation were obtained. The catheter was withdrawn to aortic arch and the left vertebral artery catheterized. AP and lateral images of the posterior circulation were obtained. The catheter was removed. The introducer sheath was removed. Hemostasis obtained with a Mynx device. A sterile dressing was applied. Mr. Skinner was awoken from sedation and found to be at his neurologic baseline. He was transferred to Recovery in satisfactory condition. ANGIOGRAPHIC FINDINGS: The limited right common femoral artery arteriogram demonstrates normal puncture site anatomy. The right vertebral artery demonstrates antegrade flow in the posterior circulation. The vertebrals are codominant. There are patent bilateral posterior communicating arteries with some reconstitution of the anterior circulation. There is additionally some pial reconstitution to the posterior cerebral artery of the anterior and middle cerebral artery territories. The capillary and venous phases are unremarkable. The right common carotid arteriogram demonstrates antegrade flow in the cervical carotid arteries. There really is no significant flow within the right internal carotid artery. The capillary and venous phases are unremarkable. The right common carotid cerebral angiogram demonstrates antegrade flow within the extracranial circulation. There is a prominent superficial temporal artery. There is some reconstitution of the intracranial circulation from retrograde filling from the ophthalmic artery. The capillary and venous phases are unremarkable. The left common carotid arteriogram demonstrates antegrade flow in the cervical carotid arteries. Again seen is no significant flow within the internal carotid artery in the neck. The capillary and venous phases are unremarkable. The left common carotid cerebral angiogram demonstrates the antegrade flow within the extracranial circulation. There is a smaller superficial temporal artery then on the right side. There is some scant reconstitution of the left anterior circulation through retrograde flow from the ophthalmic artery. The capillary and venous phases are unremarkable. The left vertebral arteriogram demonstrates antegrade flow in the posterior circulation. The vertebrals are codominant. Again seen, there are patent posterior communicating arteries and pial collaterals reconstituting the anterior circulation. The capillary and venous phases are unremarkable. IMPRESSION: The patient has advanced bilateral moyamoya changes. He has a prominent superficial temporal arteries bilaterally. He could be considered a candidate for revascularization after he recovers from the spontaneous hemorrhage. At the very least, he needs to be on aspirin after the intraventricular hemorrhage has resolved. Dictated By: Robby Ly MD, PhD Robby Ly MD, PhD ATTENDING CJP/MedQ JOB: [id number] DOC: [id number] [facility] Work Phone: [phone]) 505-989112-20-2022 Note* Certification - Samir Marquez MD - 07/14/2022 11:15 AM EST I certify that this patient requires inpatient services at this time. I anticipate the expected length of stay will include at least two midnights. Inpatient services are due to the following medicalconcerns intraventricular hemorrhage. Plans for post hospitalization care will be discharge to [facility]12-20-2022 Note* Certification - Samir Marquez MD - 07/14/2022 11:15 AM EST I certify that this patient requires inpatient services at this time. I anticipate the expected length of stay will include at least two midnights. Inpatient services are due to the following medicalconcerns intraventricular hemorrhage. Plans for post hospitalization care will be discharge to [facility]12-20-2022 Note* Plan of Care - Lisa Balbuena, PT - 07/14/2022 9:04 AM EST Problem: PT - Balance/Coordination/Neuro Re-Education Goal: Standing Dynamic/Static Balance Description: Pt will perform standing balance tasks for 15 minutes with supervision with out an assistive device in order to improve functional mobility and safety with standing tasks. Outcome: Ongoing Problem: PT - Mobility Goal: Ambulation Description: Pt will ambulate 500 feet with out an assistive device with supervision to improve ability to navigate home environment. Outcome: Ongoing Goal: Stairs Description: Pt will ascend/descend 12 stairs with railings with supervision with out an assistive device to improve ability to perform functional mobility necessary in recommended discharge environment. Outcome: Ongoing Problem: PT - Transfers Goal: Supine <-> Sit Description: Pt will perform bed mobility with flat bed & no rail with independence in order toimprove functional mobility and safety. Outcome: Ongoing Goal: Sit <-> Stand Description: Pt will perform sit to/from stand transfers with supervision with out an assistive device in order to improve functional mobility and safety. Outcome: Ongoing Lisa Balbuena PT, DPT License #: [id number] Pager #: [phone] [facility]12-20-2022 Note* Plan of Care - Lisa Balbuena PT - 07/14/2022 9:04 AM EST Problem: PT - Balance/Coordination/Neuro Re-Education Goal: Standing Dynamic/Static Balance Description: Pt will perform standing balance tasks for 15 minutes with supervision with out an assistive device in order to improve functional mobility and safety with standing tasks. Outcome: Ongoing Problem: PT - Mobility Goal: Ambulation Description: Pt will ambulate 500 feet with out an assistive device with supervision to improve ability to navigate home environment. Outcome: Ongoing Goal: Stairs Description: Pt will ascend/descend 12 stairs with railings with supervision with out an assistive device to improve ability to perform functional mobility necessary in recommended discharge environment. Outcome: Ongoing Problem: PT - Transfers Goal: Supine <-> Sit Description: Pt will perform bed mobility with flat bed & no rail with independence in order toimprove functional mobility and safety. Outcome: Ongoing Goal: Sit <-> Stand Description: Pt will perform sit to/from stand transfers with supervision with out an assistive device in order to improve functional mobility and safety. Outcome: Ongoing Lisa Balbuena PT, DPT License #: [id number] Pager #: [phone] [facility]12-20-2022 Note* Plan of Care - Emperatriz Stevens MD, PhD - 07/14/2022 5:52 AM EST DCA today, keep NPO Emperatriz Stevens MD, PhD Resident Physician, PGY2 Department of Neurological Surgery [facility] Pager: [phone], if no response, please page: [phone] [facility] Work Phone: [phone]) [phone] Note* Plan of Care - Emperatriz Stevens MD, PhD - 07/14/2022 5:52 AM EST DCA today, keep NPO Emperatriz Stevens MD, PhD Resident Physician, PGY2 Department of Neurological Surgery [facility] Pager: [phone], if no response, please page: [phone] [facility] Work Phone: [phone]) [phone] Note* Plan of Care - William Snow MD - 07/14/2022 3:18 AM EST Urology Plan of Care Note Cefaz 2g IV x1 ordered for Urology procedure detailed in my consult note [facility] Work Phone: [phone]) [phone] Note* Plan of Care - William Snow MD - 07/14/2022 3:18 AM EST Urology Plan of Care Note Cefaz 2g IV x1 ordered for Urology procedure detailed in my consult note [facility] Work Phone: Discharge summary Author Jhoan Laurent [facility] November 13, 2023 4:23am Note Date/Time November 13, 2023 3:0 0am [facility] Medical Records Department [address] [place] [address] Emergency Department Summary 11/13/23 MR#: [id number] Acct: [id number] Name: LOVE SKINNER Rep #:[id number] : [id number] 68 From: Jhoan Drummond PCP: Dr. Guanaco Crenshaw MD Status:REG ER Location: ED HPI History of Present Illness Chief Complaint: GI Bleed Informant: patient and spouse/S.O. Narrative Narrative: Presents with difficulty urinating then noting bowel movement that is bloody. He is straining. He is on aspirin history of CVA in 2021. Suprapubic discomfort. No fevers. [place] catheter when he had a stroke per significant other. PFSH PFSH Medical History Stroke Home Medications aspirin 81 mg chewable tablet (Children's Aspirin) 1 tab PO DAILY 11/13/23 [History Last Taken Unknown] cefdinir 300 mg capsule 300 mg PO Q12H #14 caps 11/13/23 [Rx Last Taken Unknown] docusate sodium 100 mg capsule (Colace) 100 mg PO BID #30 caps 11/13/23 [Rx Last Taken Unknown] tamsulosin 0.4 mg capsule (Flomax) 0.4 mg PO DAILY #14 caps 11/13/23 [Rx Last Taken Unknown] Allergy/AdvReac Type Severity Reaction Status Date / Time No Known Allergies Allergy Verified 07/13/22 15:31 Surgical History (Updated 11/13/23 @ 02:40 by Susan Packer) S/P hernia surgery Social History Smoking Status: Current every day smoker tobacco type: e-cigarettes ROS ROS ED Constitutional Constitutional ED: Denies chills, fever(s) or sweats Eyes Eyes: Denies change in vision ENT ENT ED: Denies dysphagia or sore throat Cardiovascular Cardiovascular: Denies chest pain, leg edema, palpitations or racing heartbeat Respiratory/Chest Respiratory/Chest: Denies cough, dyspnea or dyspnea on exertion Gastrointestinal Gastrointestinal: Reports abdominal pain and other Details: Rectal bleeding ; Denies diarrhea, nausea or vomiting Genitourinary Genitourinary ED: Reports other Details: Urine retention ; Denies dysuria, hematuria or urinary frequency Musculoskeletal Musculoskeletal: Denies back pain, extremity pain or neck pain Integumentary Denies rash or wounds Neurologic Neurologic: Denies headache(s), paresthesias or weakness EXAM Physical Exam Const Vital Signs: 11/13/23 02:35 11/13/23 04:08 Temperature 98.0 F 97.4 F L Temperature Source Oral Pulse Rate 85 78 Respiratory Rate 22 H 18 Blood Pressure 214/114 H 173/80 H Blood Pressure Mean 147 111 Pulse Ox 99 96 Oxygen Delivery Method Room Air Positive well nourished and well developed Constitutional Narrative: Walking around for comfort. General Appearance ED: well developed and NAD HEENT Reports moist mucous membranes normocephalic and atraumatic Eyes PERRL, EOMs intact bilaterally and conjunctivae normal General Eye ED: Yes normal appearance of both eyes Neck no lymphadenopathy and supple General: Negative for tenderness Chest Wall Chest: Negative for tenderness Resp normal respiratory effort and normal air movement Effort and Inspection: symmetric chest movement; Negative for respiratory distress Cardio regular rate, regular rhythm and no murmurs Peripheral Pulses: pulses 2+ throughout GI GI Narrative: Suprapubic distention. Rectal exam with large anterior hemorrhoid dried blood. Palpation: Negative for guarding or rebound tenderness present Back/Spine no CVA tenderness and no thoracic nor lumbar tenderness Extremity normal to inspection General Extremety ED: Negative for edema or tenderness General Extremity: Negative for edema Neuro oriented x3 and no sensory deficits noted Sensorium / Orientation: awake and alert Skin no rashes or lesions noted and no wounds MDM MDM MDM Narrative Medical decision making narrative: Interventions / MDM: Differential diagnosis: Urine retention, UTI, bleeding external hemorrhoid Diagnosis considered but do not suspect: No clinical diverticulitis My EKG interpretation: N/A Imaging independently reviewed and interpreted by myself: N/A External documents reviewed: N/A Test considered but not ordered:N/A ED course: Presenting urine retention suprapubic distention. Rectal bleeding with noted hemorrhoid. Basic labs, Toledo catheter and urine ordered. 0300: Toledo with 1 L of urine output. abdominal pain improved, distention improved. 0400: Labs hemoglobin normal at 15 white count 8.5. Creatinine 1.05. Urine leukocytes and white cells from cath urine. Culture sent. With urine retentionwill start antibiotics in the ED. Multiple reevaluation continues to have soft abdomen. No clinical diverticulitis. Blood pressure improved with his symptoms. Discussed maintain Toledo catheter for 3 days for urine retention he started on Flomax, urology follow-up in 3 days discussed if he cannot get in to return to ED for attempted Toledo catheter removal trial. He has external hemorrhoid that was bleeding, placed on stool softeners and GI follow-up. All questions were answered. Re-evaluation: stable Disposition discussed with patient/family/significant other: Patient and significant other. Case discussed with consulting clinician: N/A This note was generated with [employer] dictation software. It may contain incorrectwords, spelling, and punctuation that were not noted in checking the note beforesigning. Lab Data Attestation: I reviewed the patient's lab results. Labs: Laboratory Results - last 24 hr 11/13/23 11/13/23 02:52 03:07 WBC 8.5 RBC 5.02 Hgb 15.5 Hct 46.1 MCV 91.8 MCH 30.9 MCHC 33.6 RDW Std Deviation 43.0 RDW Coeff of Tre 12.8 Plt Count 252 MPV 9.4 Immature Gran % (Auto) 0.500 Neut % (Auto) 66.3 Lymph % (Auto) 22.2 Meagher % (Auto) 8.5 Eos % (Auto) 1.6 Baso % (Auto) 0.9 Absolute Neuts (auto) 5.6 Absolute Lymphs (auto) 1.89 Nucleated RBC % 0 Sodium 138 Potassium 3.9 Chloride 106 Carbon Dioxide 25.0 Anion Gap 7 BUN 22 H Creatinine 1.05 Estim Creat Clear Calc 75.04 Est GFR (MDRD) Af Amer 90 Est GFR (MDRD) Non-Af 74 BUN/Creatinine Ratio 21.0 H Glucose 131 H Calcium 8.9 Urine Color Yellow Urine Clarity Clear Urine pH 6.5 Ur Specific [place] 1.010 Urine Protein Negative Urine Glucose (UA) Normal Urine Ketones Negative Urine Occult Blood 50 H Urine Nitrite Negative Urine Bilirubin Negative Urine Urobilinogen Normal Ur Leukocyte Esterase 100 H Urine RBC 0-5 SEEN Urine WBC 10-25 SEEN Ur Squamous Epith Cells 0 SEEN Urine Bacteria 0 SEEN Urine Mucus 0 SEEN Discharge Plan Triage Chief Complaint: GI Bleed ED Provider: Jhoan Laurent Dx/Rx/DC Orders Clinical Impression: External bleeding hemorrhoids, Acute UTI, Acute retention of urine Instructions: Urinary Tract Infections in Men, ED Toledo Catheter, Care, ED Hemorrhoids, ED Urinary Retention, Male Prescriptions: New tamsulosin [Flomax] 0.4 mg capsule 0.4 mg PO DAILY Qty: 14 0RF cefdinir 300 mg capsule 300 mg PO Q12H Qty: 14 0RF docusate sodium [Colace] 100 mg capsule 100 mg PO BID Qty: 30 0RF No Action aspirin [Children's Aspirin] 81 mg tablet,chewable 1 tab PO DAILY Primary Care Provider: Guanaco Cresnhaw Referrals: Guanaco Crenshaw MD [Primary Care Provider] - Max Sotomayor MD [Med Staff - Active Staff] - 3-5 Days Fortino Horn DO [Med Staff - Active Staff] - 1-2 Weeks Activity Restrictions/Additional Instructions: Acute urinary retention. Maintain Toledo catheter for least 3 days. Urine with potential infection. Culture sent. Take antibiotic as prescribed. Use Flomax daily. Follow-up with Dr. Sotomayor in 3 days for outpatient valuation Toledo catheter removal. If unable to get in, return to the ED for removal trial. External hemorrhoid that was bleeding likely from straining. Stool softeners asprescribed. Follow-up with Dr. Horn for outpatient evaluation. Disposition Disposition: Home, Self Care What to do if you have Problems For any increased pain, shortness of breath, bleeding, nausea or vomiting, chestpain, or any unexpected problems, contact your Primary Care Provider. Call [email or web address] ([phone]) or report to the closest Emergency Room. Call 911 if necessary. 11/13/23 1602 <Electronically signed by Jhoan Drummond> Cosigner Signature (if applicable): CC: Dr. Guanaco Crenshaw MD ~ Signed [facility] Work Phone: Discharge summary Author Catarino Collins [facility] November 14, 2023 10:59am Note Date/Time November 14, 2023 9:5 0am [facility] Medical Records Department [address] [place] [address] Emergency Department Summary 11/14/23 MR#: [id number] Acct: [id number] Name: LOVE SKINNER Rep #:[id number] : [id number] 68 From: Catarino Collins MD PCP: Dr. Guanaco Crenshaw MD Status:REG ER Location: ED HPI History of Present Illness Chief Complaint: Complaint Informant: patient and spouse/S.O. Narrative Narrative: Patient seen here yesterday and had a Toledo placed because of acute urinary retention and what seems to be infection for which she was started on antibiotics. He states yesterday the urine was flowing through the catheter into the bag and he was emptying it uneventfully. This morning it is leaking around the catheter and nothing is going into the bag. He does not have any abdominal or back pain or fevers or chills or hematuria before or after the catheter that he knows of, grossly. PFSH PFSH Medical History Stroke Home Medications aspirin 81 mg chewable tablet (Children's Aspirin) 1 tab PO DAILY 11/13/23 [History Last Taken Unknown] cefdinir 300 mg capsule 300 mg PO Q12H #14 caps 11/13/23 [Rx Last Taken Unknown] docusate sodium 100 mg capsule (Colace) 100 mg PO BID #30 caps 11/13/23 [Rx Last Taken Unknown] tamsulosin 0.4 mg capsule (Flomax) 0.4 mg PO DAILY #14 caps 11/13/23 [Rx Last Taken Unknown] Allergy/AdvReac Type Severity Reaction Status Date / Time No Known Allergies Allergy Verified 11/14/23 09:32 Surgical History (Updated 11/13/23 @ 02:40 by Susan Packer) S/P hernia surgery Social History Smoking Status: Current every day smoker tobacco type: e-cigarettes ROS ROS ED Constitutional Constitutional ED: Denies chills or fever(s) Gastrointestinal Gastrointestinal: Denies abdominal pain, nausea or vomiting Genitourinary Genitourinary ED: Reports as per HPI; Denies hematuria Musculoskeletal Musculoskeletal: Denies back pain or neck pain Neurologic Neurologic: Denies paresthesias or weakness EXAM Physical Exam Const Vital Signs: 11/14/23 09:30 11/14/23 09:32 Temperature 97.9 F 97.9 F Temperature Source Temporal Oral Pulse Rate 76 77 Respiratory Rate 18 18 Blood Pressure 141/114 H 141/114 H Blood Pressure Mean 123 123 Pulse Ox 96 98 Oxygen Delivery Method Room Air Room Air Positive well nourished and well developed General Appearance ED: well developed and NAD GI non-tender and non-distended Auscultation: normoactive bowel sounds Palpation: soft Narrative: Toledo in place and penis, otherwise unremarkable. Trace amounts of yellow nonbloody urine in catheter. Back/Spine no CVA tenderness Neuro oriented x3, CN's II-XII intact bilaterally, moves all extremities, no focal motor deficits and no sensory deficits noted MDM MDM MDM Narrative Medical decision making narrative: After irrigating the catheter, a piece of tissue was removed and the catheter subsequently was flowing well without leaking. The patient states he wants the catheter out because it is uncomfortable and makes it hard to work. I discussedthe pros and cons of that extensively with the patient. His seems to understand the pros and cons well but the patient does not. He understands thatbasically the risk is recurrent urinary retention and requiring another catheterin an urgent/emergent situation. I am having nursing give the a 10 cc syringe and instructions for removal if indeed the patient wants to do this. I have recommended that he try to leave it in until he follows up with urology. It is Wednesday so he has not yet been able to make an appointment for that. The also mentioned that the patient really does not have a desire to follow-up. I told him multiple reasons that he needs to follow-up even if the catheter comes out and he was able to urinate, not exclusive of possibility of prostate cancer causing his urinary retention, which I am not able to rule in or rule outin the emergency department. Discharge Plan Triage Chief Complaint: Complaint ED Provider: Catarino Collins Dx/Rx/DC Orders Clinical Impression: Malfunction of Toledo catheter, Acute retention of urine Instructions: ED Toledo Catheter, Care Prescriptions: No Action aspirin [Children's Aspirin] 81 mg tablet,chewable 1 tab PO DAILY tamsulosin [Flomax] 0.4 mg capsule 0.4 mg PO DAILY Qty: 14 0RF cefdinir 300 mg capsule 300 mg PO Q12H Qty: 14 0RF docusate sodium [Colace] 100 mg capsule 100 mg PO BID Qty: 30 0RF Primary Care Provider: Guanaco Crenshaw Referrals: Guanaco Crenshaw MD [Primary Care Provider] - Max Sotomayor MD [Med Staff - Active Staff] - 5-7 Days Disposition Disposition: Home, Self Care What to do if you have Problems For any increased pain, shortness of breath, bleeding, nausea or vomiting, chestpain, or any unexpected problems, contact your Primary Care Provider. Call [facility] ([phone]) or report to the closest Emergency Room. Call 911 if necessary. 11/14/23 1059 <Electronically signed by Catarino Collins MD> Cosigner Signature (if applicable): CC: Dr. Guanaco Crenshaw MD ~ Signed [facility] Work Phone: Evaluation note* Diagnosis IVH (intraventricular hemorrhage)- Primary Intracerebral hemorrhage IVH (intraventricular hemorrhage) Intracerebral hemorrhage Electrolyte disorder (K, Cl, or Na) Electrolyte and fluid disorders not elsewhere classified Anemia (Low HGB) Anemia, unspecified [facility] Diagnosis Cerebrovascular accident (CVA), unspecified mechanism- Primary Urinary retention Retention of urine, unspecified Stroke Unspecified cerebral artery occlusion with cerebral infarction [facility] Diagnosis Cerebrovascular accident (CVA), unspecified mechanism- Primary Urinary retention Retention of urine, unspecified Stroke Unspecified cerebral artery occlusion with cerebral infarction [facility] Diagnosis IVH (intraventricular hemorrhage)- Primary Intracerebral hemorrhage IVH (intraventricular hemorrhage) Intracerebral hemorrhage Electrolyte disorder (K, Cl, or Na) Electrolyte and fluid disorders not elsewhere classified Anemia (Low HGB) Anemia, unspecified [facility] assessment information available [facility] Work Phone: Evaluation note* Diagnosis Onset Date Resolution Status Admit Date Hematuria acute March 16 5:03pm UTI (urinary tract infection) acute March 16, 2025 5:03pm [facility] Work Phone: Hospital Discharge instructions Additional Instructions Acute urinary retention. Maintain Toledo catheter for least 3 days. Urine with potential infection. Culture sent. Take antibiotic as prescribed. Use Flomax daily. Follow-up with Dr. Sotomayor in 3 days for outpatient valuation Toledo catheter removal. If unable to get in, return to the ED for removal trial. External hemorrhoid that was bleeding likely from straining. Stool softeners as prescribed. Follow-up with Dr. Horn for outpatient evaluation.[facility] Work Phone: Hospital Discharge instructionsAmbulatory Orders* Urology Location: None Selected [facility] Work Phone: Reason for referral (narrative)* Consultation (Routine) - New Request Specialty Diagnoses / Procedures Referred By Contac t Referred To Contact Neurology Diagnoses IVH (intraventricular hemorrhage) Wendy Alston, [employer] [address] [place] [address] Referral ID Status Reason Start Date Expiration Date V isits Requested Visits Authorized [id number] New Request 07/24/2022 08/18/2023 1 1 * Radiology (Routine) - New Request Specialty Diagnoses / Procedures Referred By Contac t Referred To Contact Procedures ECG Razia Andrade, [employer] [address] [place] [address] Referral ID Status Reason Start Date Expiration Date V isits Requested Visits Authorized [id number] New Request 07/16/2022 08/10/2023 1 1 * (Routine) - New Request Specialty Diagnoses / Procedures Referred By Contac t Referred To Contact Procedures DVT/VTE RISK ASSESSMENT Jody Perry APRN-CNP [address] [place] [address] Referral ID Status Reason Start Date Expiration Date V isits Requested Visits Authorized [id number] New Request 07/14/2022 08/08/2023 1 1 * (Routine) - New Request Specialty Diagnoses / Procedures Referred By Contac t Referred To Contact Procedures DVT/VTE RISK ASSESSMENT Jody Perry APRN-CNP [address] [place] [address] Referral ID Status Reason Start Date Expiration Date V isits Requested Visits Authorized [id number] New Request 07/14/2022 08/08/[address] [facility]ative[facility]No reason for referral information [facility]WC[facility] Work Phone: Advance Directives No Advanced Directives Records FoundLatest Code Status on File Code Status Date Activated Date Inactivated Comments Full Code 07/25/2022 3:45 PM Code Status History Code Status Date Activated Date Inactivated Comments Full Code 07/16/2022 1:14 AM 07/25/2022 3:45 PM Advance Directive Response Recorded Date/ Time Living Will No November 13, 2023 2:40am Power of Rn Ostomy No November 12 2:40am Advance Directive Response Recorded Date/ Time Living Will No November 14, 2023 9:29am Power of Rn Ostomy No November 13 9:29am Reason for Referral Specialty Diagnoses / Procedures Referred By Contac t Referred To Contact Social Work Diagnoses Cerebrovascular accident (CVA), unspecified mechanism Dinesh Blackwell APRN-CNP [address] [place] [address] Referral ID Status Reason Start Date Expiration Date V isits Requested Visits Authorized [id number] New Request 07/31/2022 08/25/2023 1 1 Specialty Diagnoses / Procedures Referred By Contac t Referred To Contact Urology Diagnoses Urinary retention Mikayla Schulerica Sandi, [employer] [address] [place] [address] Referral ID Status Reason Start Date Expiration Date V isits Requested Visits Authorized [id number] New Request 07/28/2022 08/22/2023 1 1 Specialty Diagnoses / Procedures Referred By Contac t Referred To Contact Neurologic Surgery Diagnoses Cerebrovascular accident (CVA), unspecified mechanism Ganga Dolores Sandi, [employer] [address] [place] [address] Referral ID Status Reason Start Date Expiration Date V isits Requested Visits Authorized [id number] New Request 07/28/2022 08/22/2023 1 1 Specialty Diagnoses / Procedures Referred By Contac t Referred To Contact Diagnoses Cerebrovascular accident (CVA), unspecified mechanism Procedures CT HEAD WITHOUT CONTRAST [place] CT SCAN,HEAD/BRAIN,W/O CONTRAST MATL GangaDolores Sandi, [employer] [address] [place] [address] Referral ID Status Reason Start Date Expiration Date V isits Requested Visits Authorized [id number] New Request 07/28/2022 08/22/2023 1 1 Specialty Diagnoses / Procedures Referred By Contac t Referred To Contact Procedures ECG Arash Briceno, [employer] [address] [place] [address] Referral ID Status Reason Start Date Expiration Date V isits Requested Visits Authorized [id number] New Request 07/27/2022 08/21/2023 1 1 Specialty Diagnoses / Procedures Referred By Contac t Referred To Contact Procedures NO PHARMACOLOGICAL DVT PROPHYLAXIS Petrona Huynh MD [address] [place] [address] Referral ID Status Reason Start Date Expiration Date V isits Requested Visits Authorized [id number] New Request 07/25/2022 08/19/2023 1 1 Specialty Diagnoses / Procedures Referred By Contac t Referred To Contact Procedures DVT/VTE RISK ASSESSMENT Petrona Huynh MD [address] [place] [phone] Referral ID Status Reason Start Date Expiration Date V isits Requested Visits Authorized [id number] New Request 07/25/2022 08/19/2023 1 1 Summary Purpose Family History No Family History Records FoundNo Family History Records Found Chief Complaint and Reason for Visit Chief Complaint GI Bleed, diarrhea Chief Complaint GI Bleed, diarrhea URINARY Chief Complaint Admit Date Cough September 05, 2024 9:48am Chief Complaint Admit Date CONCERN FOR UTI March 16, 2025 5: 03pm Reason for Visit Admit Date Hematuria March 16, 2025 5: 03pm UTI (urinary tract infection) February 5:03pm Additional Source Comments Scheduled Active and Recently Administ ered Medications (unrecognized section and content) Medication Order 07/23/2022 07/24/2022 07/25/2022 amLODIPine (NORVASC) tablet 10 mg 10 mg, Oral, DAILY, First dose on 07/19/22 at 1245, Until Discontinued 756 (Given - Provider: Mercy Segal RN) 0822 (Given - Provider: Minesh Meyer, MERY) 0739 (Given - Provider: Dolores Horvath, MERY) aspirin chewable tablet 81 mg 81 mg, Oral, DAILY, First dose on 07/19/22 at 1245, Until Discontinued 756 (Given - Provider: Mercy Segal RN) 0822 (Given - Provider: Minesh Meyer, MERY) 0739 (Given - Provider: Dolores Horvath, MERY) Atorvastatin (LIPITOR) tablet 80 mg 80 mg, Oral, DAILY AT BEDTIME, First dose on Wed07/14/22 at 2100, Until Discontinued 2015 (Given - Provider: Patrice Cash, MERY) 2217 (Given - Provider: Patrice Cash, MERY) carveDILOL (COREG) tablet 12.5 mg 12.5 mg, Oral, EVERY 12 HOURS, First dose (after last modification) on Wed07/22/22 at 0900, Until Discontinued, 075 (Given - Provider: Mercy Segal, RN)2015 (Given - Provider: Patrice Cash RN) 821 (Given - Provider: Minesh Meyer, RN)2217 (Given - Provider: Patrice Cash RN) 0739 (Given - Provider: Dolores Horvath, RN) cephALEXin (KEFLEX) capsule 500 mg (CANCELED) 500 mg, Oral, EVERY 12 HOURS, 20 doses, First dose on Wed07/19/22 at 1215, Last dose on Wed07/28/22 at 2100 0758 (Given - Provider: Mercy Segal RN)2051 (Given - Provider: Patrice Cash RN) 821 (Given - Provider: Minesh Meyer, MERY)2217 (Given - Provider: Patrice Cash RN) 0739 (Given - Provider: Dolores Horvath, MERY) Enoxaparin Sodium (LOVENOX) injection 40 mg 40 mg, Subcutaneous, EVERY 24 HOURS, First dose on Wed07/17/22 at 2100, Until Discontinued, , Indications: DVT/PE prophylaxis 2015 (Given - Provider: Patrice Cash, MERY) 2216 (Given - Provider: Patrice Cash RN) Haloperidol lactate (HALDOL) injection 0.5 mg (COMPLETED) 0.5 mg, Intravenous, ONCE, 1 dose, On Wed07/23/22 at 0500 0448 (Given - Provider: Fred Dumont RN) Lisinopril (PRINIVIL) tablet 40 mg 40 mg, Oral, DAILY, First dose (after last modification) on Wed07/20/22 at 0900, Until Discontinued 075 (Given - Provider: Mercy Segal RN) 821 (Given - Provider: Minesh Meyer, MERY) 0739 (Given - Provider: Dolores Horvath, MERY) magnesium oxide (MAG-OX) tablet 800 mg (COMPLETED) 800 mg, Oral, 2 TIMES DAILY, 2 doses, First dose on Annie 07/23/22 at 1215, Last dose on Wed07/23/22 at 1700 1234 (Given - Provider: Mercy Segal RN)1624 (Given - Provider: Mercy Segal RN) Melatonin tablet 3 mg 3 mg, Oral, DAILY AT BEDTIME, First dose on Wed07/25/22 at 2100, Until Discontinued nicotine (NICODERM CQ) 14 MG/24HR patch 1 patch(Linked Group 1) 1 patch, Transdermal, DAILY, First dose on Wed07/14/22 at 0600, Until Discontinued, Apply patch to hairless skin site on upper body or arm. Rotate sites for each application. Do not cut or alter patch. Remove patch after duration of 16-24 hours. To dispose, fold adhesive ends together. 0758 (Patch Removed - Provider: Mercy Segal RN)0800 (Patch Applied - Provider: Mercy Segal RN) 0821 (Patch Removed - Provider: Minesh Meyer, MERY)0822 (Patch Applied - Provider: Minesh Meyer, MERY) 0740 (Patch Applied - Provider: Dolores Horvath, MERY)1449 (Due: Patch Removed - Provider: System Discharge - Comment: Time automatically adjusted from order being discontinued) Potassium chloride (K-DUR) tablet ER 40 mEq (COMPLETED) 40 mEq, Oral, 2 TIMES DAILY, 2 doses, First dose on Wed07/23/22 at 0900, Last dose on Wed07/23/22 at 1700, Swallow tablets whole; do not crush, chew, or suck on tablet. Tablet may also be broken in half and each half swallowed separately. 1012 (Given - Provider: Mercy Segal RN)1624 (Given - Provider: Mercy Segal RN) QUEtiapine (SEROquel) tablet 25 mg 25 mg, Oral, EVERY 12 HOURS, First dose (after last modification) on Wed07/16/22 at 0900, Until Discontinued 075 (Given - Provider: Mercy Segal, RN)2015 (Given - Provider: Patrice Cash, MERY) 08 (Given - Provider: Minesh Meyer, MREY)221 (Given - Provider: Patrice Cash, MERY) 0739 (Given - Provider: Dolores Horvath, MERY) senna (SENOKOT) tablet 8.6 mg 8.6 mg, Oral, DAILY, First dose on Wed07/14/22 at 0900, Until Discontinued 075 (Given - Provider: Mercy Segal RN) 0822 (Given - Provider: Minesh Meyer RN) 0739 (Given - Provider: Dolores Horvath, RN) Sodium chloride 0.9% IV solution 1,000 mL (COMPLETED) 1,000 mL, Intravenous, at 250 mL/hr, ONCE, 1 dose, On 07/25/22 at 0730, Fluid Bolus 0737 ($$New Bag$$ - Provider: Dolores Horvath, RN)1156 (Stopped - Provider: Dolores Horvath RN) Tamsulosin HCl (FLOMAX) capsule 0.4 mg 0.4 mg, Oral, DAILY, First dose on Wed07/14/22 at 0900, Until Discontinued, Slow release product. Do not chew or crush 0758 (Given - Provider: Mercy Segal RN) 0822 (Given - Provider: Minesh Meyer RN) 0739 (Given - Provider: Dolores Horvath RN) VERIFY LINKED PATCH PLACEMENT(Linked Group 1) Other, EVERY 12 HOURS, First dose on Wed07/14/22 at 0900, Until Discontinued, Confirm continued adhesion of nicotine 14mg /24hr patch at documented site. 0800 (Patch Verify - Provider: Mercy Segal RN)2016 (Patch Verify - Provider: Patrice Cash RN) 0824 (Patch Verify - Provider: Minesh Meyer RN)221 (Patch Verify - Provider: Patrice Cash RN) 0749 (Patch Verify - Provider: Dolores Horvath RN - Comment: left shoulder) PRN Medication Order 07/23/2022 07/24/2022 07/25/2022 Acetaminophen (TYLENOL) tablet 650 mg 650 mg, Oral, EVERY 4 HOURS NEEDED, Starting on Wed07/14/22 at 0334, Until 07/25/22 at 1454, Mild Pain, Other, Oral temp > 99.5 F, Maximum dose of acetaminophen is 4000 mg from all sources in 24 hours. 0143 (Given - Provider: Fred Dumont RN)1012 (Given - Provider: Mercy Segal RN)2016 (Given - Provider: Patrice Cash RN) 0912 (Given - Provider: Minesh Meyer RN)1628 (Given - Provider: Minesh Meyer RN)2218 (Given - Provider: Patrice Cash RN) Albuterol (PROVENTIL) (2.5 MG/3ML) 0.083% inhalation solution 2.5 mg 2.5 mg, Nebulization, EVERY 6 HOURS NEEDED, Starting on Annie 07/16/22 at 1211, Until 07/25/22 at 1454, Shortness of Breath, Wheezing Haloperidol lactate (HALDOL) injection 1 mg 1 mg, Intravenous, EVERY 6 HOURS NEEDED, Starting on Annie 07/23/22 at 0505, Until 07/25/22 at 1454, agitation 0512 (Given - Provider: Fred Dumont RN)1751 (Given - Provider: Mercy Segal, RN) 0100 (Given - Provider: Patrice Cash RN) 0307 (Given - Provider: Tejas Segal RN) hydrALAZINE (APRESOLINE) injection 10 mg(Linked Group 2) 10 mg, Intravenous, EVERY 1 HOUR NEEDED, Starting on 07/14/22 at 0332, Until 07/25/22 at 1454, See administration instructions, Use as initial dose for Systolic Blood Pressure GREATER than 160 mmHg and Heart rate LESS than 60 beats per minute. Higher dose may be administered if lower dose was previously documented as ineffective 10 minutes after administration and did not result in adverse effects (HR>90) 1012 (See Alternative - Provider: Mercy Segal RN) hydrALAZINE (APRESOLINE) injection 20 mg(Linked Group 2) 20 mg, Intravenous, EVERY 1 HOUR NEEDED, Starting on 07/14/22 at 0332, Until 07/25/22 at 1454, See administration instructions, Higher dose may be administered for Systolic Blood Pressure GREATER than 160 mmHg and Heart rate LESS than 60 beats per minute if lower dose was previously documented as ineffective 10 minutes after administration and did not result in adverse effects (HR>90). Decrease back to lower dose if patient has adverse effects, or no PRN used in previous 3 hours 1012 (Given - Provider: Mercy Segal RN) Ipratropium-albuterol (DUONEB) 0.5-2.5 (3) MG/3ML nebulizer solution 3 mL 3 mL, Nebulization, EVERY 6 HOURS NEEDED, Starting on 07/14/22 at 0336, Until 07/25/22 at 1454, Shortness of Breath, Cough, Breathing Treatment, Respiratory Distress, Wheezing Ondansetron 4mg/2ml (ZOFRAN) injection 4 mg 4 mg, Intravenous, EVERY 4 HOURS NEEDED, Starting on Wed07/14/22 at 0334, Until 07/25/22 at 1454, Nausea / Vomiting Polyethylene glycol (MIRALAX) packet 17 g 17 g, Oral, DAILY NEEDED, Starting on Wed07/14/22 at 0335, Until 07/25/22 at 1454, Constipation If No Bowel Movement in 48 Hours, after bisacodyl Sodium chloride 0.9% IV solution 250 mL Intravenous, at 20 mL/hr, NEEDED, Starting on Wed07/14/22 at 0332, Until 07/25/22 at 1454, Carrier Fluid - See Admin. Inst, 250mL 0.9NS to be used as carrier fluid for intermittent small volume or piggyback medication administration as needed. Infusion rate of the carrier fluid should be set at 20 mL/hr unless the rate as the intermittent medication is less than 20 mL/hr. For intermittent medications with a rate less than 20 mL/hr set the carrier fluid at that rate of the intermittent or piggy back medication. No Frequency Medication Order 07/23/2022 07/24/2022 07/25/2022 Haloperidol lactate (HALDOL) injection (COMPLETED) 1 dose, Starting on Wed07/23/22 at 0433, Until Wed07/23/22 at 0517, Created by cabinet override 0517 (Given - Provider: Fred Dumont RN - Comment: neyxiisidoro override) Linked Groups Order Group 1: nicotine (NICODERM CQ) 14 MG/24HR patch 1 patchJump to med 1 patch, Transdermal, DAILY, First dose on Wed07/14/22 at 0600, Until Discontinued
Apply patch to hairless skin site on upper body or arm. Rotate sites for each application. Do not cut or alter patch. Remove patch after duration of 16-24 hours. To dispose, fold adhesive ends together.
And VERIFY LINKED PATCH PLACEMENTJump to med Other, EVERY 12 HOURS, First dose on Wed07/14/22 at 0900, Until Discontinued
Confirm continued adhesion of nicotine 14mg /24hr patch at documented site.
Group 2: hydrALAZINE (APRESOLINE) injection 10 mgJump to med 10 mg, Intravenous, EVERY 1 HOUR NEEDED, Starting on Wed07/14/22 at 0332, Until 07/25/22 at 1454, See administration instructions
Use as initial dose for Systolic Blood Pressure GREATER than 160 mmHg and Heart rate LESS than 60 beats per minute. Higher dose may be administered if lower dose was previously documented as ineffective 10 minutes after administration and did not result in adverse effects (HR>90)
Or hydrALAZINE (APRESOLINE) injection 20 mgJump to med 20 mg, Intravenous, EVERY 1 HOUR NEEDED, Starting on Wed07/14/22 at 0332, Until 07/25/22 at 1454, See administration instructions
Higher dose may be administered for Systolic Blood Pressure GREATER than 160 mmHg and Heart rate LESS than 60 beats per minute if lower dose was previously documented as ineffective 10 minutes after administration and did not result in adverse effects (HR>90). Decrease back to lower dose if patient has adverse effects, or no PRN used in previous 3 hours
Scheduled Medication Order 07/29/2022 07/30/2022 07/31/2022 amLODIPine (NORVASC) tablet 10 mg 10 mg, Oral, DAILY, First dose on 07/26/22 at 0900, Until Discontinued, Case/Bed Requests Only 0849 (Given - Provider: Delicia Downey RN) 0807 (Given - Provider: Delicia Downey RN) 0838 (Given - Provider: Scott Delgado, MERY) aspirin chewable tablet 81 mg 81 mg, Oral, DAILY, First dose on 07/26/22 at 0900, Until Discontinued, Case/Bed Requests Only 0849 (Given - Provider: Delicia Downey RN) 0807 (Given - Provider: Delicia Downey RN) 0838 (Given - Provider: Scott Delgado, MERY) Atorvastatin (LIPITOR) tablet 80 mg 80 mg, Oral, DAILY AT BEDTIME, First dose on 07/25/22 at 2100, Until Discontinued, Case/Bed Requests Only 2114 (Given - Provider: Crys Weir, MERY) 2010 (Given - Provider: Crys Weir RN) carveDILOL (COREG) tablet 12.5 mg 12.5 mg, Oral, 2 TIMES DAILY, First dose on 07/25/22 at 1700, Until Discontinued, , Case/Bed Requests Only 0849 (Given - Provider: Delicia Downey RN)1622 (Given - Provider: Delicia Downey RN) 0807 (Given - Provider: Delicia Downey RN)1605 (Given - Provider: Delicia Downey RN) 0838 (Given - Provider: Scott Delgado RN) Enoxaparin Sodium (LOVENOX) injection 40 mg(Linked Group 1) 40 mg, Subcutaneous, DAILY, First dose on Wed07/28/22 at 1030, Until Discontinued, , Indications: DVT/PE prophylaxis 0848 (Given - Provider: Delicia Downey RN) 0807 (Given - Provider: Delicia Downey RN) 0839 (Given - Provider: Scott Delgado RN) GI Cocktail (COMPLETED) Oral, ONCE, 1 dose, On Annie 07/30/22 at 0045 0115 (Given - Provider: Crys Weir RN) lidocaine 4 % patch 2 patch 2 patch, Transdermal, Administer over 12 Hours, DAILY, First dose on 07/26/22 at 0300, Until Discontinued, Apply to back / site of pain 0849 (Patch Applied - Provider: Delicia Downey RN)2114 (Patch Removed - Provider: Crys Weir RN) 0810 (Not Given - Provider: Delicia Downey RN - Reason: Patient/family refused) 0839 (Hold - Provider: Scott Delgado RN - Reason: Patient/family refused) Lisinopril (PRINIVIL) tablet 40 mg 40 mg, Oral, DAILY, First dose on 07/26/22 at 0900, Until Discontinued, Case/Bed Requests Only 0848 (Given - Provider: Delicia Downey RN) 0807 (Given - Provider: Delicia Downey RN) 0838 (Given - Provider: Scott Delgado RN) Melatonin tablet 6 mg 6 mg, Oral, DAILY EARLY EVENING, First dose (after last modification) on Wed07/27/22 at 1800, Until Discontinued 1622 (Given - Provider: Delicia Downey RN) 1605 (Given - Provider: Delicia Downey RN) nicotine (NICODERM CQ) 14 MG/24HR patch 1 patch(Linked Group 2) 1 patch, Transdermal, EVERY 24 HOURS, First dose on 07/25/22 at 1615, Until Discontinued, Apply patch to hairless skin site on upper body or arm. Rotate sites for each application. Do not cut or alter patch. Remove patch after duration of 16-24 hours. To dispose, fold adhesive ends together., Case/Bed Requests Only 1615 (Patch Removed - Provider: Delicia Downey RN)1622 (Patch Applied - Provider: Delicia Downey RN) 1605 (Patch Removed - Provider: Delicia Downey RN)1606 (Patch Applied - Provider: Delicia Downey RN) 1319 (Due: Patch Removed - Provider: System Discharge - Comment: Time automatically adjusted from order being discontinued) QUEtiapine (SEROquel) tablet 12.5 mg 12.5 mg, Oral, DAILY, First dose on Wed07/29/22 at 0900, Until Discontinued 0848 (Given - Provider: Delicia Downey RN) 0807 (Given - Provider: Delicia Downey RN) 0838 (Given - Provider: Scott Delgado RN) QUEtiapine (SEROquel) tablet 12.5 mg (COMPLETED) 12.5 mg, Oral, ONCE, 1 dose, On Wed07/30/22 at 2200 0050 (Given - Provider: Crys Weir, MERY) QUEtiapine (SEROquel) tablet 25 mg 25 mg, Oral, DAILY AT BEDTIME, First dose (after last modification) on Wed07/28/22 at 2100, Until Discontinued, Case/Bed Requests Only 2114 (Given - Provider: Crys Weir, RN) 2010 (Given - Provider: Crys Weir, RN) senna (SENOKOT) tablet 8.6 mg(Linked Group 3) 8.6 mg, Oral, DAILY, First dose on Wed07/26/22 at 0900, Until Discontinued, Case/Bed Requests Only 0849 (Given - Provider: Delicia Downey RN) 0807 (Given - Provider: Delicia Downey RN) 0838 (Given - Provider: Scott Delgado RN) senna (SENOKOT) tablet 8.6 mg(Linked Group 3) 8.6 mg, Per NG tube, DAILY, First dose on 07/26/22 at 0900, Until Discontinued, Case/Bed Requests Only 0849 (See Alternative - Provider: Delicia Downey RN) 0807 (See Alternative - Provider: Delicia Downey RN) 0838 (See Alternative - Provider: Scott Delgado, RN) Tamsulosin HCl (FLOMAX) capsule 0.4 mg 0.4 mg, Oral, DAILY, First dose on 07/26/22 at 0900, Until Discontinued, Slow release product. Do not chew or crush, Case/Bed Requests Only 0848 (Given - Provider: Delicia Downey RN) 0807 (Given - Provider: Delicia Downey RN) 0838 (Given - Provider: Scott Delgado, MERY) VERIFY LINKED PATCH PLACEMENT(Linked Group 2) Other, EVERY 12 HOURS, First dose on 07/25/22 at 2100, Until Discontinued, Confirm continued adhesion of nicotine 14mg /24hr patch at documented site. 0850 (Patch Verify - Provider: Delicia Downey RN)2114 (Patch Verify - Provider: Crys Weir, MERY) 0810 (Patch Verify - Provider: Delicia Downey RN)2013 (Patch Verify - Provider: Crys Weir, MERY) 0839 (Patch Verify - Provider: Scott Delgado, MERY) PRN Medication Order 07/29/2022 07/30/2022 07/31/2022 Acetaminophen (TYLENOL) tablet 325 mg(Linked Group 4) 325 mg, Oral, EVERY 4 HOURS NEEDED, Starting on 07/25/22 at 1535, Until Wed07/31/22 at 1520, Mild Pain, Moderate Pain, Maximum dose of acetaminophen is 4000 mg from all sources in 24 hours., Case/Bed Requests Only Acetaminophen (TYLENOL) tablet 325 mg(Linked Group 4) 325 mg, Per NG tube, EVERY 4 HOURS NEEDED, Starting on 07/25/22 at 1535, Until Wed07/31/22 at 1520, Mild Pain, Moderate Pain, Maximum dose of acetaminophen is 4000 mg from all sources in 24 hours., Case/Bed Requests Only Acetaminophen (TYLENOL) tablet 650 mg(Linked Group 4) 650 mg, Oral, EVERY 4 HOURS NEEDED, Starting on 07/25/22 at 1535, Until Wed07/31/22 at 1520, Severe Pain, Oral temp > 99.5, Maximum dose of acetaminophen is 4000 mg from all sources in 24 hours., Case/Bed Requests Only Acetaminophen (TYLENOL) tablet 650 mg(Linked Group 4) 650 mg, Per NG tube, EVERY 4 HOURS NEEDED, Starting on 07/25/22 at 1535, Until Wed07/31/22 at 1520, Severe Pain, Oral temp > 99.5, Maximum dose of acetaminophen is 4000 mg from all sources in 24 hours., Case/Bed Requests Only hydrALAZINE (APRESOLINE) injection 10 mg(Linked Group 5) 10 mg, Intravenous, EVERY 1 HOUR NEEDED, Starting on 07/25/22 at 1535, Until Wed07/31/22 at 1520, Other, SBP > 140 mmHg with HR < 60 bpm, Use as initial dose. Use if Heart Rate LESS THAN 60 beats per minute. Higher dose may be administered if lower dose was previously documented as ineffective 10 minutes after administration and did not result in adverse effects (HR>90), Case/Bed Requests Only hydrALAZINE (APRESOLINE) injection 20 mg(Linked Group 5) 20 mg, Intravenous, EVERY 1 HOUR NEEDED, Starting on 07/25/22 at 1535, Until Wed07/31/22 at 1520, Other, SBP > 140 mmHg with HR < 60 bpm, Use if Heart Rate LESS THAN 60 beats per minute. Higher dose may be administered if lower dose was previously documented as ineffective 10 minutes after administration and did not result in adverse effects (HR>90). Decrease back to lower dose if patient has adverse effects, or no PRN used in previous 3 hours, Case/Bed Requests Only hydrOXYzine hcl (ATARAX) tablet 10 mg 10 mg, Oral, 3 TIMES DAILY NEEDED, Starting on 07/26/22 at 0207, Until Wed07/31/22 at 1520, Anxiety, Insomnia 2354 (Given - Provider: Crys Weir, MERY) 1605 (Given - Provider: Delicia Downey RN) Labetalol (NORMODYNE) injection 10 mg(Linked Group 6) 10 mg, Intravenous, EVERY 1 HOUR NEEDED, Starting on 07/25/22 at 1535, Until Wed07/31/22 at 1520, SBP > 140 mmHg with HR >60 bpm, Use as initial dose. Use if Heart Rate GREATER THAN 60 beats per minute. Higher dose may be administered if lower dose was previously documented as ineffective 10 minutes after administration and did not result in adverse effects (HR<60) For vials: labetalol should be treated as a SINGLE USE VIAL. Discard remaining contents after one use., Case/Bed Requests Only Labetalol (NORMODYNE) injection 20 mg(Linked Group 6) 20 mg, Intravenous, EVERY 1 HOUR NEEDED, Starting on 07/25/22 at 1535, Until Wed07/31/22 at 1520, SBP > 140 mmHg with HR > 60 bpm, Use if Heart Rate GREATER THAN 60 beats per minute. Higher dose may be administered if lower dose was previously documented as ineffective 10 minutes after administration and did not result in adverse effects (HR<60). Decrease back to lower dose if patient has adverse effects, or no PRN used in previous 3 hours For vials: labetalol should be treated as a SINGLE USE VIAL. Discard remaining contents after one use., Case/Bed Requests Only Ondansetron (ZOFRAN) tablet 4 mg(Linked Group 7) 4 mg, Oral, EVERY 6 HOURS NEEDED, Starting on 07/25/22 at 1535, Until Wed07/31/22 at 1520, Nausea / Vomiting, Case/Bed Requests Only Ondansetron 4mg/2ml (ZOFRAN) injection 4 mg(Linked Group 7) 4 mg, Intravenous, EVERY 6 HOURS NEEDED, Starting on 07/25/22 at 1535, Until Wed07/31/22 at 1520, Nausea / Vomiting, Case/Bed Requests Only Polyethylene glycol (MIRALAX) packet 17 g(Linked Group 8) 17 g, Oral, DAILY NEEDED, Starting on 07/25/22 at 1535, Until Wed07/31/22 at 1520, Constipation If No Bowel Movement in 48 Hours, Case/Bed Requests Only Polyethylene glycol (MIRALAX) packet 17 g(Linked Group 8) 17 g, Per NG tube, DAILY NEEDED, Starting on 07/25/22 at 1535, Until Wed07/31/22 at 1520, Constipation If No Bowel Movement in 48 Hours, Case/Bed Requests Only Linked Groups Order Group 1: Enoxaparin Sodium (LOVENOX) injection 40 mgJump to med 40 mg, Subcutaneous, DAILY, First dose on Wed07/28/22 at 1030, Until Discontinued

Indications: DVT/PE prophylaxis And PLATELET COUNT - baseline (CANCELED) Routine, ONE TIME, On Wed07/28/22 at 0959, For 1 occurrence, New collection And PLATELET COUNT (CANCELED) Routine, EVERY 3 DAYS AM LAB, First occurrence on Wed07/31/22 at 0500, Until Specified, New collection Group 2: nicotine (NICODERM CQ) 14 MG/24HR patch 1 patchJump to med 1 patch, Transdermal, EVERY 24 HOURS, First dose on Wed07/25/22 at 1615, Until Discontinued
Apply patch to hairless skin site on upper body or arm. Rotate sites for each application. Do not cut or alter patch. Remove patch after duration of 16-24 hours. To dispose, fold adhesive ends together.
Case/Bed Requests Only And VERIFY LINKED PATCH PLACEMENTJump to med Other, EVERY 12 HOURS, First dose on Wed07/25/22 at 2100, Until Discontinued
Confirm continued adhesion of nicotine 14mg /24hr patch at documented site.
Group 3: senna (SENOKOT) tablet 8.6 mgJump to med 8.6 mg, Oral, DAILY, First dose on Wed07/26/22 at 0900, Until Discontinued, Case/Bed Requests Only Or senna (SENOKOT) tablet 8.6 mgJump to med 8.6 mg, Per NG tube, DAILY, First dose on Wed07/26/22 at 0900, Until Discontinued, Case/Bed Requests Only Group 4: Acetaminophen (TYLENOL) tablet 325 mgJump to med 325 mg, Oral, EVERY 4 HOURS NEEDED, Starting on Wed07/25/22 at 1535, Until Wed07/31/22 at 1520, Mild Pain, Moderate Pain
Maximum dose of acetaminophen is 4000 mg from all sources in 24 hours.
Case/Bed Requests Only Or Acetaminophen (TYLENOL) tablet 325 mgJump to med 325 mg, Per NG tube, EVERY 4 HOURS NEEDED, Starting on Wed07/25/22 at 1535, Until Wed07/31/22 at 1520, Mild Pain, Moderate Pain
Maximum dose of acetaminophen is 4000 mg from all sources in 24 hours.
Case/Bed Requests Only Or Acetaminophen (TYLENOL) tablet 650 mgJump to med 650 mg, Oral, EVERY 4 HOURS NEEDED, Starting on 07/25/22 at 1535, Until Wed07/31/22 at 1520, Severe Pain, Oral temp > 99.5
Maximum dose of acetaminophen is 4000 mg from all sources in 24 hours.
Case/Bed Requests Only Or Acetaminophen (TYLENOL) tablet 650 mgJump to med 650 mg, Per NG tube, EVERY 4 HOURS NEEDED, Starting on 07/25/22 at 1535, Until Wed07/31/22 at 1520, Severe Pain, Oral temp > 99.5
Maximum dose of acetaminophen is 4000 mg from all sources in 24 hours.
Case/Bed Requests Only Group 5: hydrALAZINE (APRESOLINE) injection 10 mgJump to med 10 mg, Intravenous, EVERY 1 HOUR NEEDED, Starting on 07/25/22 at 1535, Until Wed07/31/22 at 1520, Other, SBP > 140 mmHg with HR < 60 bpm
Use as initial dose. Use if Heart Rate LESS THAN 60 beats per minute. Higher dose may be administered if lower dose was previously documented as ineffective 10 minutes after administration and did not result in adverse effects (HR>90)
Case/Bed Requests Only Or hydrALAZINE (APRESOLINE) injection 20 mgJump to med 20 mg, Intravenous, EVERY 1 HOUR NEEDED, Starting on 07/25/22 at 1535, Until Wed07/31/22 at 1520, Other, SBP > 140 mmHg with HR < 60 bpm
Use if Heart Rate LESS THAN 60 beats per minute. Higher dose may be administered if lower dose was previously documented as ineffective 10 minutes after administration and did not result in adverse effects (HR>90). Decrease back to lower dose if patient has adverse effects, or no PRN used in previous 3 hours
Case/Bed Requests Only Group 6: Labetalol (NORMODYNE) injection 10 mgJump to med 10 mg, Intravenous, EVERY 1 HOUR NEEDED, Starting on 07/25/22 at 1535, Until Wed07/31/22 at 1520, SBP > 140 mmHg with HR >60 bpm
Use as initial dose. Use if Heart Rate GREATER THAN 60 beats per minute. Higher dose may be administered if lower dose was previously documented as ineffective 10 minutes after administration and did not result in adverse effects (HR<60) For vials: labetalol should be treated as a SINGLE USE VIAL. Discard remaining contents after one use.
Case/Bed Requests Only Or Labetalol (NORMODYNE) injection 20 mgJump to med 20 mg, Intravenous, EVERY 1 HOUR NEEDED, Starting on 07/25/22 at 1535, Until Wed07/31/22 at 1520, SBP > 140 mmHg with HR > 60 bpm
Use if Heart Rate GREATER THAN 60 beats per minute. Higher dose may be administered if lower dose was previously documented as ineffective 10 minutes after administration and did not result in adverse effects (HR<60). Decrease back to lower dose if patient has adverse effects, or no PRN used in previous 3 hours For vials: labetalol should be treated as a SINGLE USE VIAL. Discard remaining contents after one use.
Case/Bed Requests Only Group 7: Ondansetron 4mg/2ml (ZOFRAN) injection 4 mgJump to med 4 mg, Intravenous, EVERY 6 HOURS NEEDED, Starting on 07/25/22 at 1535, Until Wed07/31/22 at 1520, Nausea / Vomiting, Case/Bed Requests Only Or Ondansetron (ZOFRAN) tablet 4 mgJump to med 4 mg, Oral, EVERY 6 HOURS NEEDED, Starting on 07/25/22 at 1535, Until Wed07/31/22 at 1520, Nausea / Vomiting, Case/Bed Requests Only Group 8: Polyethylene glycol (MIRALAX) packet 17 gJump to med 17 g, Oral, DAILY NEEDED, Starting on 07/25/22 at 1535, Until Wed07/31/22 at 1520, Constipation If No Bowel Movement in 48 Hours, Case/Bed Requests Only Or Polyethylene glycol (MIRALAX) packet 17 gJump to med 17 g, Per NG tube, DAILY NEEDED, Starting on 07/25/22 at 1535, Until Wed07/31/22 at 1520, Constipation If No Bowel Movement in 48 Hours, Case/Bed Requests Only Scheduled Medication Order 07/29/2022 07/30/2022 07/31/2022 amLODIPine (NORVASC) tablet 10 mg 10 mg, Oral, DAILY, First dose on 07/26/22 at 0900, Until Discontinued, Case/Bed Requests Only 0849 (Given - Provider: Delicia Downey RN) 0807 (Given - Provider: Delicia Downey RN) 0838 (Given - Provider: Scott Delgado, MERY) aspirin chewable tablet 81 mg 81 mg, Oral, DAILY, First dose on 07/26/22 at 0900, Until Discontinued, Case/Bed Requests Only 0849 (Given - Provider: Delicia Downey RN) 0807 (Given - Provider: Delicia Downey RN) 0838 (Given - Provider: Scott Delgado, MERY) Atorvastatin (LIPITOR) tablet 80 mg 80 mg, Oral, DAILY AT BEDTIME, First dose on 07/25/22 at 2100, Until Discontinued, Case/Bed Requests Only 2114 (Given - Provider: Crys Weir, MERY) 2010 (Given - Provider: Crys Weir, MERY) carveDILOL (COREG) tablet 12.5 mg 12.5 mg, Oral, 2 TIMES DAILY, First dose on 07/25/22 at 1700, Until Discontinued, , Case/Bed Requests Only 0849 (Given - Provider: Delicia Downey RN)1622 (Given - Provider: Delicia Downey RN) 0807 (Given - Provider: Delicia Downey RN)1605 (Given - Provider: Delicia Downey RN) 0838 (Given - Provider: Scott Delgado, MERY) Enoxaparin Sodium (LOVENOX) injection 40 mg(Linked Group 1) 40 mg, Subcutaneous, DAILY, First dose on Wed07/28/22 at 1030, Until Discontinued, , Indications: DVT/PE prophylaxis 0848 (Given - Provider: Delicia Downey RN) 0807 (Given - Provider: Delicia Downey RN) 0839 (Given - Provider: Scott Delgado RN) GI Cocktail (COMPLETED) Oral, ONCE, 1 dose, On Wed07/30/22 at 0045 0115 (Given - Provider: Crys Weir RN) lidocaine 4 % patch 2 patch 2 patch, Transdermal, Administer over 12 Hours, DAILY, First dose on 07/26/22 at 0300, Until Discontinued, Apply to back / site of pain 0849 (Patch Applied - Provider: Delicia Downey RN)2114 (Patch Removed - Provider: Crys Weir, RN) 0810 (Not Given - Provider: Delicia Downey RN - Reason: Patient/family refused) 0839 (Hold - Provider: Scott Delgado RN - Reason: Patient/family refused) Lisinopril (PRINIVIL) tablet 40 mg 40 mg, Oral, DAILY, First dose on 07/26/22 at 0900, Until Discontinued, Case/Bed Requests Only 0848 (Given - Provider: Delicia Downey RN) 0807 (Given - Provider: Delicia Downey RN) 0838 (Given - Provider: Scott Delgado RN) Melatonin tablet 6 mg 6 mg, Oral, DAILY EARLY EVENING, First dose (after last modification) on Wed07/27/22 at 1800, Until Discontinued 1622 (Given - Provider: Delicia Downey RN) 1605 (Given - Provider: Delicia Downey RN) nicotine (NICODERM CQ) 14 MG/24HR patch 1 patch(Linked Group 2) 1 patch, Transdermal, EVERY 24 HOURS, First dose on 07/25/22 at 1615, Until Discontinued, Apply patch to hairless skin site on upper body or arm. Rotate sites for each application. Do not cut or alter patch. Remove patch after duration of 16-24 hours. To dispose, fold adhesive ends together., Case/Bed Requests Only 1615 (Patch Removed - Provider: Delicia Downey RN)1622 (Patch Applied - Provider: Delicia Downey RN) 1605 (Patch Removed - Provider: Delicia Downey RN)1606 (Patch Applied - Provider: Delicia Downey RN) 1319 (Due: Patch Removed - Provider: System Discharge - Comment: Time automatically adjusted from order being discontinued) QUEtiapine (SEROquel) tablet 12.5 mg 12.5 mg, Oral, DAILY, First dose on Wed07/29/22 at 0900, Until Discontinued 0848 (Given - Provider: Dleicia Downey RN) 0807 (Given - Provider: Delicia Downey RN) 0838 (Given - Provider: Scott Delgado, MERY) QUEtiapine (SEROquel) tablet 12.5 mg (COMPLETED) 12.5 mg, Oral, ONCE, 1 dose, On Wed07/30/22 at 2200 0050 (Given - Provider: Crys Weir, RN) QUEtiapine (SEROquel) tablet 25 mg 25 mg, Oral, DAILY AT BEDTIME, First dose (after last modification) on Wed07/28/22 at 2100, Until Discontinued, Case/Bed Requests Only 2114 (Given - Provider: Crys Weir, RN) 2010 (Given - Provider: Crys Weir, RN) senna (SENOKOT) tablet 8.6 mg(Linked Group 3) 8.6 mg, Oral, DAILY, First dose on 07/26/22 at 0900, Until Discontinued, Case/Bed Requests Only 0849 (Given - Provider: Dleicia Downey RN) 0807 (Given - Provider: Delicia Downey RN) 0838 (Given - Provider: Scott Delgado RN) senna (SENOKOT) tablet 8.6 mg(Linked Group 3) 8.6 mg, Per NG tube, DAILY, First dose on 07/26/22 at 0900, Until Discontinued, Case/Bed Requests Only 0849 (See Alternative - Provider: Delicia Downey RN) 0807 (See Alternative - Provider: Delicia Downey RN) 0838 (See Alternative - Provider: Scott Delgado RN) Tamsulosin HCl (FLOMAX) capsule 0.4 mg 0.4 mg, Oral, DAILY, First dose on 07/26/22 at 0900, Until Discontinued, Slow release product. Do not chew or crush, Case/Bed Requests Only 0848 (Given - Provider: Delicia Downey RN) 0807 (Given - Provider: Delicia Downey RN) 0838 (Given - Provider: Scott Delgado RN) VERIFY LINKED PATCH PLACEMENT(Linked Group 2) Other, EVERY 12 HOURS, First dose on 07/25/22 at 2100, Until Discontinued, Confirm continued adhesion of nicotine 14mg /24hr patch at documented site. 0850 (Patch Verify - Provider: Delicia Downey, RN)2113 (Patch Verify - Provider: Crys Weir, RN) 08 (Patch Verify - Provider: Delicia Downey, RN)2013 (Patch Verify - Provider: Crys Weir, RN) 0839 (Patch Verify - Provider: Scott Delgado RN) PRN Medication Order 07/29/2022 07/30/2022 07/31/2022 Acetaminophen (TYLENOL) tablet 325 mg(Linked Group 4) 325 mg, Oral, EVERY 4 HOURS NEEDED, Starting on 07/25/22 at 1535, Until Wed07/31/22 at 1520, Mild Pain, Moderate Pain, Maximum dose of acetaminophen is 4000 mg from all sources in 24 hours., Case/Bed Requests Only Acetaminophen (TYLENOL) tablet 325 mg(Linked Group 4) 325 mg, Per NG tube, EVERY 4 HOURS NEEDED, Starting on 07/25/22 at 1535, Until Wed07/31/22 at 1520, Mild Pain, Moderate Pain, Maximum dose of acetaminophen is 4000 mg from all sources in 24 hours., Case/Bed Requests Only Acetaminophen (TYLENOL) tablet 650 mg(Linked Group 4) 650 mg, Oral, EVERY 4 HOURS NEEDED, Starting on 07/25/22 at 1535, Until Wed07/31/22 at 1520, Severe Pain, Oral temp > 99.5, Maximum dose of acetaminophen is 4000 mg from all sources in 24 hours., Case/Bed Requests Only Acetaminophen (TYLENOL) tablet 650 mg(Linked Group 4) 650 mg, Per NG tube, EVERY 4 HOURS NEEDED, Starting on 07/25/22 at 1535, Until Wed07/31/22 at 1520, Severe Pain, Oral temp > 99.5, Maximum dose of acetaminophen is 4000 mg from all sources in 24 hours., Case/Bed Requests Only hydrALAZINE (APRESOLINE) injection 10 mg(Linked Group 5) 10 mg, Intravenous, EVERY 1 HOUR NEEDED, Starting on 07/25/22 at 1535, Until Wed07/31/22 at 1520, Other, SBP > 140 mmHg with HR < 60 bpm, Use as initial dose. Use if Heart Rate LESS THAN 60 beats per minute. Higher dose may be administered if lower dose was previously documented as ineffective 10 minutes after administration and did not result in adverse effects (HR>90), Case/Bed Requests Only hydrALAZINE (APRESOLINE) injection 20 mg(Linked Group 5) 20 mg, Intravenous, EVERY 1 HOUR NEEDED, Starting on 07/25/22 at 1535, Until Wed07/31/22 at 1520, Other, SBP > 140 mmHg with HR < 60 bpm, Use if Heart Rate LESS THAN 60 beats per minute. Higher dose may be administered if lower dose was previously documented as ineffective 10 minutes after administration and did not result in adverse effects (HR>90). Decrease back to lower dose if patient has adverse effects, or no PRN used in previous 3 hours, Case/Bed Requests Only hydrOXYzine hcl (ATARAX) tablet 10 mg 10 mg, Oral, 3 TIMES DAILY NEEDED, Starting on 07/26/22 at 0207, Until Wed07/31/22 at 1520, Anxiety, Insomnia 2354 (Given - Provider: Crys Weir, RN) 1605 (Given - Provider: Delicia Downey RN) Labetalol (NORMODYNE) injection 10 mg(Linked Group 6) 10 mg, Intravenous, EVERY 1 HOUR NEEDED, Starting on 07/25/22 at 1535, Until Wed07/31/22 at 1520, SBP > 140 mmHg with HR >60 bpm, Use as initial dose. Use if Heart Rate GREATER THAN 60 beats per minute. Higher dose may be administered if lower dose was previously documented as ineffective 10 minutes after administration and did not result in adverse effects (HR<60) For vials: labetalol should be treated as a SINGLE USE VIAL. Discard remaining contents after one use., Case/Bed Requests Only Labetalol (NORMODYNE) injection 20 mg(Linked Group 6) 20 mg, Intravenous, EVERY 1 HOUR NEEDED, Starting on 07/25/22 at 1535, Until Wed07/31/22 at 1520, SBP > 140 mmHg with HR > 60 bpm, Use if Heart Rate GREATER THAN 60 beats per minute. Higher dose may be administered if lower dose was previously documented as ineffective 10 minutes after administration and did not result in adverse effects (HR<60). Decrease back to lower dose if patient has adverse effects, or no PRN used in previous 3 hours For vials: labetalol should be treated as a SINGLE USE VIAL. Discard remaining contents after one use., Case/Bed Requests Only Ondansetron (ZOFRAN) tablet 4 mg(Linked Group 7) 4 mg, Oral, EVERY 6 HOURS NEEDED, Starting on Wed07/25/22 at 1535, Until Wed07/31/22 at 1520, Nausea / Vomiting, Case/Bed Requests Only Ondansetron 4mg/2ml (ZOFRAN) injection 4 mg(Linked Group 7) 4 mg, Intravenous, EVERY 6 HOURS NEEDED, Starting on Wed07/25/22 at 1535, Until Wed07/31/22 at 1520, Nausea / Vomiting, Case/Bed Requests Only Polyethylene glycol (MIRALAX) packet 17 g(Linked Group 8) 17 g, Oral, DAILY NEEDED, Starting on Wed07/25/22 at 1535, Until Wed07/31/22 at 1520, Constipation If No Bowel Movement in 48 Hours, Case/Bed Requests Only Polyethylene glycol (MIRALAX) packet 17 g(Linked Group 8) 17 g, Per NG tube, DAILY NEEDED, Starting on Wed07/25/22 at 1535, Until Wed07/31/22 at 1520, Constipation If No Bowel Movement in 48 Hours, Case/Bed Requests Only Linked Groups Order Group 1: Enoxaparin Sodium (LOVENOX) injection 40 mgJump to med 40 mg, Subcutaneous, DAILY, First dose on Wed07/28/22 at 1030, Until Discontinued

Indications: DVT/PE prophylaxis And PLATELET COUNT - baseline (CANCELED) Routine, ONE TIME, On Wed07/28/22 at 0959, For 1 occurrence, New collection And PLATELET COUNT (CANCELED) Routine, EVERY 3 DAYS AM LAB, First occurrence on Wed07/31/22 at 0500, Until Specified, New collection Group 2: nicotine (NICODERM CQ) 14 MG/24HR patch 1 patchJump to med 1 patch, Transdermal, EVERY 24 HOURS, First dose on Wed07/25/22 at 1615, Until Discontinued
Apply patch to hairless skin site on upper body or arm. Rotate sites for each application. Do not cut or alter patch. Remove patch after duration of 16-24 hours. To dispose, fold adhesive ends together.
Case/Bed Requests Only And VERIFY LINKED PATCH PLACEMENTJump to med Other, EVERY 12 HOURS, First dose on Wed07/25/22 at 2100, Until Discontinued
Confirm continued adhesion of nicotine 14mg /24hr patch at documented site.
Group 3: senna (SENOKOT) tablet 8.6 mgJump to med 8.6 mg, Oral, DAILY, First dose on Wed07/26/22 at 0900, Until Discontinued, Case/Bed Requests Only Or senna (SENOKOT) tablet 8.6 mgJump to med 8.6 mg, Per NG tube, DAILY, First dose on Wed07/26/22 at 0900, Until Discontinued, Case/Bed Requests Only Group 4: Acetaminophen (TYLENOL) tablet 325 mgJump to med 325 mg, Oral, EVERY 4 HOURS NEEDED, Starting on 07/25/22 at 1535, Until Wed07/31/22 at 1520, Mild Pain, Moderate Pain
Maximum dose of acetaminophen is 4000 mg from all sources in 24 hours.
Case/Bed Requests Only Or Acetaminophen (TYLENOL) tablet 325 mgJump to med 325 mg, Per NG tube, EVERY 4 HOURS NEEDED, Starting on 07/25/22 at 1535, Until Wed07/31/22 at 1520, Mild Pain, Moderate Pain
Maximum dose of acetaminophen is 4000 mg from all sources in 24 hours.
Case/Bed Requests Only Or Acetaminophen (TYLENOL) tablet 650 mgJump to med 650 mg, Oral, EVERY 4 HOURS NEEDED, Starting on 07/25/22 at 1535, Until Wed07/31/22 at 1520, Severe Pain, Oral temp > 99.5
Maximum dose of acetaminophen is 4000 mg from all sources in 24 hours.
Case/Bed Requests Only Or Acetaminophen (TYLENOL) tablet 650 mgJump to med 650 mg, Per NG tube, EVERY 4 HOURS NEEDED, Starting on 07/25/22 at 1535, Until Wed07/31/22 at 1520, Severe Pain, Oral temp > 99.5
Maximum dose of acetaminophen is 4000 mg from all sources in 24 hours.
Case/Bed Requests Only Group 5: hydrALAZINE (APRESOLINE) injection 10 mgJump to med 10 mg, Intravenous, EVERY 1 HOUR NEEDED, Starting on 07/25/22 at 1535, Until Wed07/31/22 at 1520, Other, SBP > 140 mmHg with HR < 60 bpm
Use as initial dose. Use if Heart Rate LESS THAN 60 beats per minute. Higher dose may be administered if lower dose was previously documented as ineffective 10 minutes after administration and did not result in adverse effects (HR>90)
Case/Bed Requests Only Or hydrALAZINE (APRESOLINE) injection 20 mgJump to med 20 mg, Intravenous, EVERY 1 HOUR NEEDED, Starting on 07/25/22 at 1535, Until Wed07/31/22 at 1520, Other, SBP > 140 mmHg with HR < 60 bpm
Use if Heart Rate LESS THAN 60 beats per minute. Higher dose may be administered if lower dose was previously documented as ineffective 10 minutes after administration and did not result in adverse effects (HR>90). Decrease back to lower dose if patient has adverse effects, or no PRN used in previous 3 hours
Case/Bed Requests Only Group 6: Labetalol (NORMODYNE) injection 10 mgJump to med 10 mg, Intravenous, EVERY 1 HOUR NEEDED, Starting on 07/25/22 at 1535, Until Wed07/31/22 at 1520, SBP > 140 mmHg with HR >60 bpm
Use as initial dose. Use if Heart Rate GREATER THAN 60 beats per minute. Higher dose may be administered if lower dose was previously documented as ineffective 10 minutes after administration and did not result in adverse effects (HR<60) For vials: labetalol should be treated as a SINGLE USE VIAL. Discard remaining contents after one use.
Case/Bed Requests Only Or Labetalol (NORMODYNE) injection 20 mgJump to med 20 mg, Intravenous, EVERY 1 HOUR NEEDED, Starting on 07/25/22 at 1535, Until Wed07/31/22 at 1520, SBP > 140 mmHg with HR > 60 bpm
Use if Heart Rate GREATER THAN 60 beats per minute. Higher dose may be administered if lower dose was previously documented as ineffective 10 minutes after administration and did not result in adverse effects (HR<60). Decrease back to lower dose if patient has adverse effects, or no PRN used in previous 3 hours For vials: labetalol should be treated as a SINGLE USE VIAL. Discard remaining contents after one use.
Case/Bed Requests Only Group 7: Ondansetron 4mg/2ml (ZOFRAN) injection 4 mgJump to med 4 mg, Intravenous, EVERY 6 HOURS NEEDED, Starting on 07/25/22 at 1535, Until Wed07/31/22 at 1520, Nausea / Vomiting, Case/Bed Requests Only Or Ondansetron (ZOFRAN) tablet 4 mgJump to med 4 mg, Oral, EVERY 6 HOURS NEEDED, Starting on 07/25/22 at 1535, Until Wed07/31/22 at 1520, Nausea / Vomiting, Case/Bed Requests Only Group 8: Polyethylene glycol (MIRALAX) packet 17 gJump to med 17 g, Oral, DAILY NEEDED, Starting on 07/25/22 at 1535, Until Wed07/31/22 at 1520, Constipation If No Bowel Movement in 48 Hours, Case/Bed Requests Only Or Polyethylene glycol (MIRALAX) packet 17 gJump to med 17 g, Per NG tube, DAILY NEEDED, Starting on 07/25/22 at 1535, Until Wed07/31/22 at 1520, Constipation If No Bowel Movement in 48 Hours, Case/Bed Requests Only Scheduled Medication Order 07/23/2022 07/24/2022 07/25/2022 amLODIPine (NORVASC) tablet 10 mg 10 mg, Oral, DAILY, First dose on 07/19/22 at 1245, Until Discontinued 756 (Given - Provider: Mercy Segal RN) 08 (Given - Provider: Minesh Meyer, MERY) 0739 (Given - Provider: Dolores Horvath, MERY) aspirin chewable tablet 81 mg 81 mg, Oral, DAILY, First dose on 07/19/22 at 1245, Until Discontinued 756 (Given - Provider: Mercy Segal, RN) 08 (Given - Provider: Minesh Meyer, MERY) 0739 (Given - Provider: Dolores Horvath, MERY) Atorvastatin (LIPITOR) tablet 80 mg 80 mg, Oral, DAILY AT BEDTIME, First dose on Wed07/14/22 at 2100, Until Discontinued 2015 (Given - Provider: Patrice Cash RN) 2217 (Given - Provider: Patrice Cash RN) carveDILOL (COREG) tablet 12.5 mg 12.5 mg, Oral, EVERY 12 HOURS, First dose (after last modification) on Wed07/22/22 at 0900, Until Discontinued, 075 (Given - Provider: Mercy Segal RN)2015 (Given - Provider: Patrice Cash RN) 821 (Given - Provider: Minesh Meyer, MERY)2217 (Given - Provider: Patrice Cash RN) 738 (Given - Provider: Dolores Horvath, MERY) cephALEXin (KEFLEX) capsule 500 mg (CANCELED) 500 mg, Oral, EVERY 12 HOURS, 20 doses, First dose on Wed07/19/22 at 1215, Last dose on Wed07/28/22 at 2100 075 (Given - Provider: Mercy Segal RN)2051 (Given - Provider: Patrice Cash RN) 821 (Given - Provider: Minesh Meyer, MERY)2217 (Given - Provider: Patrice Cash RN) 0739 (Given - Provider: Dolores Horvath, MERY) Enoxaparin Sodium (LOVENOX) injection 40 mg 40 mg, Subcutaneous, EVERY 24 HOURS, First dose on Wed07/17/22 at 2100, Until Discontinued, , Indications: DVT/PE prophylaxis 2015 (Given - Provider: Patrice Cash RN) 2216 (Given - Provider: Patrice Cash RN) Haloperidol lactate (HALDOL) injection 0.5 mg (COMPLETED) 0.5 mg, Intravenous, ONCE, 1 dose, On Wed07/23/22 at 0500 0448 (Given - Provider: Fred Dumont RN) Lisinopril (PRINIVIL) tablet 40 mg 40 mg, Oral, DAILY, First dose (after last modification) on Wed07/20/22 at 0900, Until Discontinued 756 (Given - Provider: Mercy Segal RN) 821 (Given - Provider: Minesh Meyer, MERY) 0739 (Given - Provider: Dolores Horvath RN) magnesium oxide (MAG-OX) tablet 800 mg (COMPLETED) 800 mg, Oral, 2 TIMES DAILY, 2 doses, First dose on Wed07/23/22 at 1215, Last dose on Wed07/23/22 at 1700 1234 (Given - Provider: Mercy Segal RN)1624 (Given - Provider: Mercy Segal RN) Melatonin tablet 3 mg 3 mg, Oral, DAILY AT BEDTIME, First dose on Wed07/25/22 at 2100, Until Discontinued nicotine (NICODERM CQ) 14 MG/24HR patch 1 patch(Linked Group 1) 1 patch, Transdermal, DAILY, First dose on Wed07/14/22 at 0600, Until Discontinued, Apply patch to hairless skin site on upper body or arm. Rotate sites for each application. Do not cut or alter patch. Remove patch after duration of 16-24 hours. To dispose, fold adhesive ends together. 0758 (Patch Removed - Provider: Mercy Segal RN)0800 (Patch Applied - Provider: Mercy Segal RN) 0821 (Patch Removed - Provider: Minesh Meyer, MERY)0822 (Patch Applied - Provider: Minesh Meyer RN) 0740 (Patch Applied - Provider: Dolores Horvath RN)1449 (Due: Patch Removed - Provider: System Discharge - Comment: Time automatically adjusted from order being discontinued) Potassium chloride (K-DUR) tablet ER 40 mEq (COMPLETED) 40 mEq, Oral, 2 TIMES DAILY, 2 doses, First dose on Wed07/23/22 at 0900, Last dose on Wed07/23/22 at 1700, Swallow tablets whole; do not crush, chew, or suck on tablet. Tablet may also be broken in half and each half swallowed separately. 1012 (Given - Provider: Mercy Segal RN)1624 (Given - Provider: Mercy Segal, RN) QUEtiapine (SEROquel) tablet 25 mg 25 mg, Oral, EVERY 12 HOURS, First dose (after last modification) on Wed07/16/22 at 0900, Until Discontinued 0757 (Given - Provider: Mercy Segal RN)2015 (Given - Provider: Patrice Cash, MERY) 0822 (Given - Provider: Minesh Meyer, MERY)2218 (Given - Provider: Patrice Cash, MERY) 0739 (Given - Provider: Dolores Horvath RN) senna (SENOKOT) tablet 8.6 mg 8.6 mg, Oral, DAILY, First dose on Wed07/14/22 at 0900, Until Discontinued 0758 (Given - Provider: Mercy Segal RN) 0822 (Given - Provider: Minesh Meyer RN) 0739 (Given - Provider: Dolores Horvath, RN) Sodium chloride 0.9% IV solution 1,000 mL (COMPLETED) 1,000 mL, Intravenous, at 250 mL/hr, ONCE, 1 dose, On Wed07/25/22 at 0730, Fluid Bolus 0737 ($$New Bag$$ - Provider: Dolores Horvath, RN)1156 (Stopped - Provider: Dolores Horvath, RN) Tamsulosin HCl (FLOMAX) capsule 0.4 mg 0.4 mg, Oral, DAILY, First dose on Wed07/14/22 at 0900, Until Discontinued, Slow release product. Do not chew or crush 0758 (Given - Provider: Mercy Segal RN) 0822 (Given - Provider: Minesh Meyer RN) 0739 (Given - Provider: Dolores Horvath, MERY) VERIFY LINKED PATCH PLACEMENT(Linked Group 1) Other, EVERY 12 HOURS, First dose on Wed07/14/22 at 0900, Until Discontinued, Confirm continued adhesion of nicotine 14mg /24hr patch at documented site. 0800 (Patch Verify - Provider: Mercy Segal RN)2016 (Patch Verify - Provider: Patrice Cash RN) 0824 (Patch Verify - Provider: Minesh Meyer RN)2219 (Patch Verify - Provider: Patrice Cash RN) 0749 (Patch Verify - Provider: Dolores Horvath RN - Comment: left shoulder) PRN Medication Order 07/23/2022 07/24/2022 07/25/2022 Acetaminophen (TYLENOL) tablet 650 mg 650 mg, Oral, EVERY 4 HOURS NEEDED, Starting on Wed07/14/22 at 0334, Until Wed07/25/22 at 1454, Mild Pain, Other, Oral temp > 99.5 F, Maximum dose of acetaminophen is 4000 mg from all sources in 24 hours. 0143 (Given - Provider: Fred Dumont RN)1012 (Given - Provider: Mercy Segal RN)2016 (Given - Provider: Patrice Cash RN) 0912 (Given - Provider: Minesh Meyer, RN)1628 (Given - Provider: Minesh Meyer, RN)2218 (Given - Provider: Patrice Cash RN) Albuterol (PROVENTIL) (2.5 MG/3ML) 0.083% inhalation solution 2.5 mg 2.5 mg, Nebulization, EVERY 6 HOURS NEEDED, Starting on Annie 07/16/22 at 1211, Until 07/25/22 at 1454, Shortness of Breath, Wheezing Haloperidol lactate (HALDOL) injection 1 mg 1 mg, Intravenous, EVERY 6 HOURS NEEDED, Starting on Annie 07/23/22 at 0505, Until 07/25/22 at 1454, agitation 0512 (Given - Provider: Fred Dumont RN)1751 (Given - Provider: Mercy Segal RN) 0100 (Given - Provider: Patrice Cash RN) 0307 (Given - Provider: Tejas Segal RN) hydrALAZINE (APRESOLINE) injection 10 mg(Linked Group 2) 10 mg, Intravenous, EVERY 1 HOUR NEEDED, Starting on 07/14/22 at 0332, Until 07/25/22 at 1454, See administration instructions, Use as initial dose for Systolic Blood Pressure GREATER than 160 mmHg and Heart rate LESS than 60 beats per minute. Higher dose may be administered if lower dose was previously documented as ineffective 10 minutes after administration and did not result in adverse effects (HR>90) 1012 (See Alternative - Provider: Mercy Segal RN) hydrALAZINE (APRESOLINE) injection 20 mg(Linked Group 2) 20 mg, Intravenous, EVERY 1 HOUR NEEDED, Starting on 07/14/22 at 0332, Until 07/25/22 at 1454, See administration instructions, Higher dose may be administered for Systolic Blood Pressure GREATER than 160 mmHg and Heart rate LESS than 60 beats per minute if lower dose was previously documented as ineffective 10 minutes after administration and did not result in adverse effects (HR>90). Decrease back to lower dose if patient has adverse effects, or no PRN used in previous 3 hours 1012 (Given - Provider: Mercy Segal RN) Ipratropium-albuterol (DUONEB) 0.5-2.5 (3) MG/3ML nebulizer solution 3 mL 3 mL, Nebulization, EVERY 6 HOURS NEEDED, Starting on Wed07/14/22 at 0336, Until 07/25/22 at 1454, Shortness of Breath, Cough, Breathing Treatment, Respiratory Distress, Wheezing Ondansetron 4mg/2ml (ZOFRAN) injection 4 mg 4 mg, Intravenous, EVERY 4 HOURS NEEDED, Starting on Wed07/14/22 at 0334, Until 07/25/22 at 1454, Nausea / Vomiting Polyethylene glycol (MIRALAX) packet 17 g 17 g, Oral, DAILY NEEDED, Starting on Wed07/14/22 at 0335, Until 07/25/22 at 1454, Constipation If No Bowel Movement in 48 Hours, after bisacodyl Sodium chloride 0.9% IV solution 250 mL Intravenous, at 20 mL/hr, NEEDED, Starting on Wed07/14/22 at 0332, Until 07/25/22 at 1454, Carrier Fluid - See Admin. Inst, 250mL 0.9NS to be used as carrier fluid for intermittent small volume or piggyback medication administration as needed. Infusion rate of the carrier fluid should be set at 20 mL/hr unless the rate as the intermittent medication is less than 20 mL/hr. For intermittent medications with a rate less than 20 mL/hr set the carrier fluid at that rate of the intermittent or piggy back medication. No Frequency Medication Order 07/23/2022 07/24/2022 07/25/2022 Haloperidol lactate (HALDOL) injection (COMPLETED) 1 dose, Starting on Wed07/23/22 at 0433, Until Wed07/23/22 at 0517, Created by cabinet override 0517 (Given - Provider: Fred Dumont RN - Comment: alix override) Linked Groups Order Group 1: nicotine (NICODERM CQ) 14 MG/24HR patch 1 patchJump to med 1 patch, Transdermal, DAILY, First dose on Wed07/14/22 at 0600, Until Discontinued
Apply patch to hairless skin site on upper body or arm. Rotate sites for each application. Do not cut or alter patch. Remove patch after duration of 16-24 hours. To dispose, fold adhesive ends together.
And VERIFY LINKED PATCH PLACEMENTJump to med Other, EVERY 12 HOURS, First dose on Wed07/14/22 at 0900, Until Discontinued
Confirm continued adhesion of nicotine 14mg /24hr patch at documented site.
Group 2: hydrALAZINE (APRESOLINE) injection 10 mgJump to med 10 mg, Intravenous, EVERY 1 HOUR NEEDED, Starting on Wed07/14/22 at 0332, Until 07/25/22 at 1454, See administration instructions
Use as initial dose for Systolic Blood Pressure GREATER than 160 mmHg and Heart rate LESS than 60 beats per minute. Higher dose may be administered if lower dose was previously documented as ineffective 10 minutes after administration and did not result in adverse effects (HR>90)
Or hydrALAZINE (APRESOLINE) injection 20 mgJump to med 20 mg, Intravenous, EVERY 1 HOUR NEEDED, Starting on Wed07/14/22 at 0332, Until 07/25/22 at 1454, See administration instructions
Higher dose may be administered for Systolic Blood Pressure GREATER than 160 mmHg and Heart rate LESS than 60 beats per minute if lower dose was previously documented as ineffective 10 minutes after administration and did not result in adverse effects (HR>90). Decrease back to lower dose if patient has adverse effects, or no PRN used in previous 3 hours
Dialysis Access Sites (unrec ognized section and content) Type Status Location Placement Date Removal Da te Sheath (CV/[place] Access Device) 07/14/22 1118 Arterial 07/14/22 1153 1153 Inactive Right Thigh - Anterior 07/14/2022 2 (unrecognized sect ion and content) No Status Records FoundNo Status Records Found INFORMATION SOURCE (unrecogn ized section and content) DATE CREATED AUTHOR 10/07/2022 [facility] DATE CREATED AUTHOR AUTHOR'S ORGANIZ ATION 2025 [facility] Care Teams (unrecognized sec tion and content) Team Status: Active Member Role Status Dates Guanaco Crenshaw MD Primary Care Provider Active Team Status: Inactive Member Role Status Dates Guanaco Crenshaw MD Primary Care Provider Active Dr. Jhoan Laurent , DO Emergency Provider Active Team Status: Inactive Member Role Status Ayan Crenshaw MD Primary Care Provider Active Dr. Catarino Collins MD Emergency Provider Active Team Status: Inactive Member Role Status Ayan Crenshaw MD Primary Care Provider Active St art: September 05, 2024 End: September 05, 2024 Guanaco Crenshaw MD Referring Provider Active Start : September 05, 2024 End: September 05, 2024 WILMER Chao Attending Provider Active Start: September 05, 2024 End: September 05, 2024 Team Status: Inactive Member Role Status Ayan Crenshaw MD Primary Care Provider Active St art: November 06, 2024 End: November 06, 2024 Guanaco Crenshaw MD Attending Provider Active Start : November 06, 2024 End: November 06, 2024 Guanaco Crenshaw MD Referring Provider Active Start : November 06, 2024 End: November 06, 2024 Team Status: Active Member Role/Relationship Status Ayan Crenshaw MD Primary Care Provider Active Team Status: Active Member Role/Relationship Status Ayan Crenshaw MD Primary Care Provider Active St art: March 16, 2025 Guanaco Crenshaw MD Attending Provider Active Start : March 16, 2025 Gunaaco Crenshaw MD Referring Provider Active Start : March 16, 2025 Team Status: Inactive Member Role/Relationship Status Ayan Crenshaw MD Primary Care Provider Active St art: March 16, 2025 End: March 16, 2025 Guanaco Crenshaw MD Referring Provider Active Start : March 16, 2025 End: March 16, 2025 WILMER Chao Attending Provider Active Start: March 16, 2025 End: March 16, 2025 Goals (unrecognized section and content) Goals may be documented in a n alternate sectionGoals may be documented in an alternate sectionGoals may be documented in an alternate sectionGoals may be documented in an alternate section FOR RECORDS PERTAINING TO PATIENTS WHO ARE OR HAVE BEEN ENROLLED IN A CHEMICAL DEPENDENCY/SUBSTANCEABUSE PROGRAM, SOME INFORMATION MAY BE OMITTED. This clinical summary was aggregated from multiple sources. Caution should be exercised in using it in the provision of clinical care. This summary normalizes information from multiple sources, and as a consequence, information in this document may materially change the coding, format and clinical context of patient data. In addition, data may be omitted in some cases. CLINICAL DECISIONS SHOULD BE BASED ON THE PRIMARY CLINICAL RECORDS. [facility] [employer] [facility]. provides no warranty or guarantee of the accuracy or completeness of information in this document.
== END | disposition home or self-care (01) ==
LOC: LABSPEC 08:30
PROVIDERS: PCP Family Medicine; Visit Provider Physician Assistant
DX: R31.9 Hematuria, unspecified (principal)
CPT/HCPCS: 87077; 87086; 87088; 87186

== ENCOUNTER → 2025-03-30 | Outpatient (CLI) | payer MEDICARE, SELFPAY ==
[2025-03-30 09:45] LABS: Mucous, Urine 0 SEEN /hpf (<or=2+); Red Blood Cells-Urine 0 SEEN /hpf (0-5); Squamous Epithelial Cells - UA 0 SEEN /hpf (0-5)
[2025-03-30 12:57] LABS: Hemoglobin 14.8 g/dL (13.0-16.5)
[2025-03-30 15:20] LABS: Color, Urine Yellow (Yellow); Glucose, Dipstick Normal (Normal); Ketone-Dipstick Negative (Negative); Leukocyte Esterase-Dipstick Negative /ul (Negative); Nitrite-Dipstick Negative (Negative); Occult Blood-Urine 10 /ul (Negative); Protein-Dipstick 15 mg/dl (Negative); Specific Gravity, Urine 1.015 (1.002-1.030); Urine Bilirubin Dipstick Negative (Negative)
== END | disposition home or self-care (01) ==
LOC: MFPLAB 09:41
PROVIDERS: PCP Family Medicine; Visit Provider Family Medicine
DX: R31.9 Hematuria, unspecified (principal)
CPT/HCPCS: 36415; 81001; 85018; 87086

== ENCOUNTER → 2025-04-05 | Outpatient (CLI) | payer MEDICARE, SELFPAY ==
[2025-04-05 11:29] LABS: PSA,Total- Diagnostic 8.32 ng/mL (0.00-4.00)
== END | disposition home or self-care (01) ==
LOC: LAB 10:28
PROVIDERS: PCP Family Medicine; Referring Provider Urology; Visit Provider Urology
DX: N40.1 Benign prostatic hyperplasia with lower urinary tract symptoms (principal)
CPT/HCPCS: 36415; 84153

== ENCOUNTER 2025-04-23 08:18 | Outpatient (CLI) | payer MEDICARE, SELFPAY ==
--- NOTE | 2025-04-23 08:32 | CT_ITS ---
PROCEDURE: LOW DOSE CT LUNG SCREENING 04/23/2025 REASON FOR EXAM: SCREENING TECHNIQUE: Procedure Code: [id number] Modality: CT Procedure: LOW DOSE CT LUNG SCREENING Coronal and Sagittal reconstruction series were provided. One or more dose reduction techniques were used (e.g., Automated exposure control, adjustment of the mA and/or kV according to patient size, use of iterative reconstruction technique). REFERENCE LINK: [facility] Lung-RADS RADIATION DOSE SUMMARY: CTDlvol: 65/0 mGy DLP: 2140.80 mGycm COMPARISON: None FINDINGS: PULMONARY NODULES: (Only nodules >3mm are reported) Lower neck:The thyroid gland is normal. There are few reactive supraclavicular lymph nodes on the left. Mediastinum:There are few reactive mesenteric lymph nodes. There is a benign calcified subcarinal lymph node. Heart and thoracic aorta:The heart size is normal. There is no pericardial effusion. There is moderate calcific vascular disease of the coronary arteries and thoracic aorta. Esophagus:Normal. Upper Abdomen:There is calcific vascular disease of the visualized abdominal aorta. There are benign splenic granulomas. There is a cortical cyst in the upper pole of the left kidney. Chest wall:The soft tissues of the chest wall appear unremarkable. There is no axillary lymphadenopathy.There is [id number] multilevel degenerative disc disease of the thoracic spine. There is degenerative grade 1 anterolisthesis of T9 on T10. Lungs, airways and pleura: There is pleural-parenchymal scarring in both lung apices. There is moderate upper lobe predominant emphysema with both centrilobular and paraseptal components. There are benign calcified granulomas in the lower lobe of the left lung. There is a pleural-based soft tissue density nodule in the superior segment of the lower lobe of the right lung, measuring 9 x 8 mm. There are no pleural effusions. CT/Low Dose CT Lung Screening IMPRESSION: 1. 9 x 8 mm soft tissue density nodule in the lower lobe of the right lung. 2. Emphysema. 3. Calcific vascular disease. 4. Other findings as noted. Lung-RADS Category: 3 S: Probably benign. Other Significant Findings: Emphysema. Calcific vascular disease. Recommendation: Follow-up low-dose chest CT in six-months. Reading Location: [place] [id number]
--- NOTE | 2025-04-23 08:32 | CT_ITS ---
PROCEDURE: CT ABD/PELVIS W/WO CONTRAST 04/23/2025 REASON FOR EXAM: BENIGN PROSTATIC HYPERPLASIA WITH LOWER URINARY TRACT SYMPTOMS TECHNIQUE: Procedure Code: [id number] Modality: CT Procedure: CT ABD/PELVIS W/WO CONTRAST Coronal and Sagittal reconstruction series were provided. CONTRAST: Isovue 370 VOLUME: 100 mL One or more dose reduction techniques were used (e.g., Automated exposure control, adjustment of the mA and/or kV according to patient size, use of iterative reconstruction technique. RADIATION DOSE SUMMARY: CTDlvol: 61.14 mGy DLP: 2144.8 mGycm COMPARISON: None FINDINGS: Lung bases: Chronic interstitial changes without a superimposed acute pulmonary process, there is a 8 mm noncalcified pleural-based nodule in the right lower lobe on axial image 9. there are calcified coronary vessels. Liver: Normal size. No mass. Gallbladder: Unremarkable Spleen: Normal size. Pancreas: Normal size without evidence of mass surrounding inflammation or ductal dilation. Adrenals: Unremarkable Kidneys: No obstructive uropathy or suspicious solid renal lesion, there are simple renal cysts. Bladder: The bladder is unremarkable but there is a significantly enlarged prostate impinging upon the inferior aspect of the bladder measuring approximately 6.1 x 6 cm. Reproductive Organs: No suspicious pelvic mass Bowel: Nondistended fluid-filled small bowel loops are noted consistent with ileus. This is likely due to retained stool throughout the colon. There is also extensive colonic diverticular disease particularly in the sigmoid colon and nonspecific thickening of the sigmoid likely due to sequela from previous diverticulitis but an underlying lesion can not be excluded. Further evaluation with colonoscopy recommended. Appendix: Normal appendix seen on axial images 70 through 77 Lymph nodes: No suspicious mesenteric or retroperitoneal adenopathy Vasculature: Mild diffuse atherosclerotic calcifications are noted. Peritoneum / Retroperitoneum: No free fluid or air Bones: Degenerative changes of the spine, and pelvis. CT/CT Abd/Pelvis W/WO Contrast IMPRESSION: Small-bowel ileus likely due to retained stool throughout the colon. There is extensive colonic diverticula particularly in the sigmoid colon where there is subtle thickening of the sigmoid an underlying les ion can not be excluded. Recommend further evaluation with colonoscopy unless recently performed. Diffuse enlargement of the prostate impinging upon the inferior aspect of the b ladder it measures at least 6 x 6 x 6 cm. No suspicious solid organ abnormalities No free intraperitoneal fluid, air, or suspicious adenopathy Chronic interstitial changes in the lung bases Degenerative bony changes Reading Location: [id number]
== END 2025-04-23 23:59 | disposition home or self-care (01) ==
LOC: CT 08:19
PROVIDERS: PCP Family Medicine; Referring Provider Family Medicine; Visit Provider Family Medicine
DX: Z12.2 Encounter for screening for malignant neoplasm of respiratory organs (principal); J43.9 Emphysema, unspecified; N40.1 Benign prostatic hyperplasia with lower urinary tract symptoms; R31.0 Gross hematuria; F17.210 Nicotine dependence, cigarettes, uncomplicated
CPT/HCPCS: 71271; 74178; Q9967